=== PATIENT | male | born 1975 | race Caucasian/White ===

== ENCOUNTER → 2018-02-19 | Outpatient (CLI) | payer OTHER ==
[~2018-02-19] MED LIST: ALLP100T PO; BUPR150T6 PO; CITA40TA19 PO; HCT25T PO; INSU100C7 SQ; LIPA1CAP67 PO; POTA15TA PO; [UNRECOGNIZED DRUG - CODE] PO
== END ==
LOC: WOUNDCARE 08:12
PROVIDERS: ATTEND Nurse Practitioner
DX: E11.621 Type 2 diabetes mellitus with foot ulcer (principal); L97.521 Non-pressure chronic ulcer of other part of left foot limited to breakdown of skin; E11.40 Type 2 diabetes mellitus with diabetic neuropathy, unspecified
CPT/HCPCS: 97597

== ENCOUNTER → 2018-02-25 | Outpatient (CLI) | payer OTHER | LOC: WOUNDCARE 10:21 | PROVIDERS: ATTEND Nurse Practitioner | DX: E11.621 Type 2 diabetes mellitus with foot ulcer (principal); L97.521 Non-pressure chronic ulcer of other part of left foot limited to breakdown of skin; E11.40 Type 2 diabetes mellitus with diabetic neuropathy, unspecified | CPT/HCPCS: 97597 ==

== ENCOUNTER → 2018-03-09 | Outpatient (CLI) | payer OTHER | LOC: WOUNDCARE 08:10 | PROVIDERS: ATTEND Nurse Practitioner | DX: E11.621 Type 2 diabetes mellitus with foot ulcer (principal); E11.40 Type 2 diabetes mellitus with diabetic neuropathy, unspecified; L97.522 Non-pressure chronic ulcer of other part of left foot with fat layer exposed | CPT/HCPCS: 11042; 87070; 87075; 87205 ==

== ENCOUNTER → 2018-03-16 | Outpatient (CLI) | payer OTHER | LOC: WOUNDCARE 08:07 | PROVIDERS: ATTEND Surgery | DX: E11.621 Type 2 diabetes mellitus with foot ulcer (principal); E11.40 Type 2 diabetes mellitus with diabetic neuropathy, unspecified; L97.522 Non-pressure chronic ulcer of other part of left foot with fat layer exposed | CPT/HCPCS: 11042 ==

== ENCOUNTER → 2018-03-23 | Outpatient (CLI) | payer OTHER | LOC: WOUNDCARE 08:04 | PROVIDERS: ATTEND Nurse Practitioner | DX: E11.621 Type 2 diabetes mellitus with foot ulcer (principal); E11.40 Type 2 diabetes mellitus with diabetic neuropathy, unspecified; L97.522 Non-pressure chronic ulcer of other part of left foot with fat layer exposed | CPT/HCPCS: 11042 ==

== ENCOUNTER → 2018-03-30 | Outpatient (CLI) | payer OTHER ==
--- NOTE | 2018-03-30 11:53 | Diagnostic Imaging Report ---
Left foot at 9:17. Indication: Skin wound, osteomyelitis. 3 views were obtained. There are no prior studies available for comparison. By history, the patient has a soft tissue ulcer along the lateral aspect of the fifth digit. A marker was placed over the area of concern. The ulcer, itself, is not well visualized but there is erosion of the lateral half of the head of the proximal phalanx of the fifth digit. The lateral cortex of the middle phalanx and of the base of the distal phalanx is also indistinct. These findings do suggest osteomyelitis. If further imaging is desired, MRI would be recommended. No other fracture or acute bony abnormality is identified. There is a prominent calcaneal spur. The soft tissues are unremarkable. Impression: 1. There does appear to be erosion of the lateral aspect of the head of the proximal phalanx of the fifth digit as well as the lateral margins of the middle phalanx and the base of the distal phalanx. These findings do suggest bony destruction, most likely related to osteomyelitis. If further imaging is desired, MRI would be recommended. 2. There is no acute abnormality identified otherwise. Dictated by: Dictated on workstation # [id number]
== END ==
LOC: RAD 09:10
PROVIDERS: ATTEND Nurse Practitioner
DX: E11.621 Type 2 diabetes mellitus with foot ulcer (principal); L97.529 Non-pressure chronic ulcer of other part of left foot with unspecified severity; M86.9 Osteomyelitis, unspecified
CPT/HCPCS: 73630

== ENCOUNTER → 2018-03-30 | Outpatient (CLI) | payer OTHER | LOC: WOUNDCARE 08:13 | PROVIDERS: ATTEND Nurse Practitioner | DX: E11.621 Type 2 diabetes mellitus with foot ulcer (principal); E11.40 Type 2 diabetes mellitus with diabetic neuropathy, unspecified; L97.522 Non-pressure chronic ulcer of other part of left foot with fat layer exposed | CPT/HCPCS: 11042; 87070; 87075; 87077; 87205 ==

== ENCOUNTER → 2018-04-06 | Outpatient (CLI) | payer OTHER | LOC: WOUNDCARE 08:08 | PROVIDERS: ATTEND Nurse Practitioner | DX: E11.621 Type 2 diabetes mellitus with foot ulcer (principal); E11.40 Type 2 diabetes mellitus with diabetic neuropathy, unspecified; L97.522 Non-pressure chronic ulcer of other part of left foot with fat layer exposed; M86.072 Acute hematogenous osteomyelitis, left ankle and foot | CPT/HCPCS: 11042 ==

== ENCOUNTER → 2018-04-13 | Outpatient (CLI) | payer OTHER | LOC: WOUNDCARE 08:04 | PROVIDERS: ATTEND Nurse Practitioner | DX: E11.621 Type 2 diabetes mellitus with foot ulcer (principal); E11.40 Type 2 diabetes mellitus with diabetic neuropathy, unspecified; L97.522 Non-pressure chronic ulcer of other part of left foot with fat layer exposed; M86.072 Acute hematogenous osteomyelitis, left ankle and foot | CPT/HCPCS: 11042 ==

== ENCOUNTER → 2018-04-20 | Outpatient (CLI) | payer OTHER | LOC: WOUNDCARE 08:09 | PROVIDERS: ATTEND Nurse Practitioner | DX: E11.621 Type 2 diabetes mellitus with foot ulcer (principal); E11.40 Type 2 diabetes mellitus with diabetic neuropathy, unspecified; L97.522 Non-pressure chronic ulcer of other part of left foot with fat layer exposed; M86.072 Acute hematogenous osteomyelitis, left ankle and foot | CPT/HCPCS: 11042; 97597 ==

== ENCOUNTER → 2018-04-22 | Outpatient (CLI) | payer OTHER | LOC: WOUNDCARE 08:06 | PROVIDERS: ATTEND Nurse Practitioner | DX: E11.621 Type 2 diabetes mellitus with foot ulcer (principal); E11.40 Type 2 diabetes mellitus with diabetic neuropathy, unspecified; L97.522 Non-pressure chronic ulcer of other part of left foot with fat layer exposed; M86.072 Acute hematogenous osteomyelitis, left ankle and foot | CPT/HCPCS: 29445 ==

== ENCOUNTER 2018-04-27 09:07 | Inpatient (IN) | payer SELFPAY ==
[~2018-04-27] VITALS: Ht 177.8 cm; Wt 84.0 kg
[~2018-04-27 09:07] MED LIST changes: -ALPR0.5T7 PO; -ASPI-789 PO; -DOXY100C2 PO; -GABA-488 PO; -INSU100I14 SQ; -INSU100V6 SQ; -KRIL1CAP18 PO; -MELO15TA39 PO; -TRAM50TA2 PO; -TRAZ-190 PO
[2018-04-27 09:35] LABS: BASOPHILS % (AUTO) 0 % (0-10); EOSINOPHILS # (AUTO) 0.2 10^3/uL (0.0-0.3); EOSINOPHILS % (AUTO) 1 % (0-10); HEMATOCRIT 41 % (40-54); HEMOGLOBIN 14.7 G/DL (13.3-17.7); LYMPHOCYTES # (AUTO) 1.4 X 10^3 (1.0-4.0); LYMPHOCYTES % (AUTO) 12 % (12-44); MEAN CORPUSCULAR HEMOGLOBIN 32 PG (25-34); MEAN CORPUSCULAR HGB CONC 36 G/DL (32-36); MEAN CORPUSCULAR VOLUME 88 FL (80-99); MONOCYTES # (AUTO) 1.2 X 10^3 (0.0-1.0); MONOCYTES % (AUTO) 10 % (0-12); NEUTROPHILS # (AUTO) 9.1 X 10^3 (1.8-7.8); NEUTROPHILS % (AUTO) 76 % (42-75); PLATELET COUNT 238 10^3/uL (130-400); RED CELL DISTRIBUTION WIDTH 12.2 % (10.0-14.5); WHITE BLOOD COUNT 11.9 10^3/uL (4.3-11.0)
[2018-04-27 09:45] LABS: BUN/CREATININE RATIO 14; CALCIUM 9.1 MG/DL (8.5-10.1); CARBON DIOXIDE 22 MMOL/L (21-32); CHLORIDE 102 MMOL/L (98-107); CREATININE SERUM 0.91 MG/DL (0.60-1.30); GFR ESTIMATED > 60; GLUCOSE 384 MG/DL (70-105); POTASSIUM 4.2 MMOL/L (3.6-5.0); SODIUM 132 MMOL/L (135-145)
[2018-04-27 10:33] VITALS: BP 128/85
--- OUTSIDE RECORDS SUMMARY | 2018-04-27 10:47 | XMS REPORT | Clinical Summary ---
Author Author Admin, [facility] Organization [facility] [place] Address Unknown Phone Unavailable Allergies, Adverse Reactions, Alerts Allergy Name Reaction Description Start Date Severity Status Provider Allergies Unknown Conditions or Problems Problem Name Problem Code Onset Date Status Entry Date Provider Comment Standard Description Annotate URETERAL CALCULUS 592.1 Active Virginia Madrigal MD Calculus of ureter Medication List Medication Instructions Start Date Stop Date Generic Name NDC Status Provider Patient Instruction Drug Treatment Unknown - unknown Advance Directives Directive Description Start Date PERMISSION TO SHARE Procedures Code Procedure Name Date Entry Date Standard Description [id number] Postop F/U Visit 12:54:07 CDT
--- OUTSIDE RECORDS SUMMARY | 2018-04-27 10:47 | XMS REPORT ---
Author Author [facility] Address [address], [place] [id number] Phone [phone] Care Team Providers Care Blood Bank Manager Name Role Phone ALMA REEVES, HUBERT PP [phone] Summary purpose TRANSITION OF CARE AUTO GENERATION Chief Complaint and Reason for Visit Admit Diagnosis 1 STONE EXTRACTION Problem list No authorized problems tracked for continuity of care are available for this visit. Encounters The following conditions tracked for encounter diagnoses were recorded for this visit: Finding or Diagnosis Status Certainty Chronicity Onset *KIDNEY STONE Active Medications No medications recorded for this patient visit Allergies, adverse reactions, alerts Allergen Category Ingredient Status Reaction Severity Onset No known allergies No known allergies No known allergies Confirmed or Verified Immunizations No immunizations recorded for this patient visit Relevant diagnostic tests and/or laboratory data No authorized results are available for this patient visit History of procedures No procedures recorded for this patient visit. Functional status Functional Status Finding Observation Time Hearing Prob Loc none :47 Vision Problems no :47 Ambulation Asst Dev none :47 Range of Motion full :29 Muscle Strength RUE 5 ROM full resist :29 Muscle Strength RLE 5 ROM full resist :29 Muscle Strength LUE 5 ROM full resist :29 Muscle Strength LLE 5 ROM full resist :29 Transfers independent :29 Ambulation up ad tobias :29 Balance steady :29 Bathing Assistance none :47 Eating Assistance none :47 Dressing Assistance none :47 Toileting Assistance none :47 Transfer Assistance none :47 Decline Slf Care/Mob no :47 Phys Cond Stable yes :47 Nutrition normal : Diet regular : Oral Cavity moist and intact : Teeth intact : Dental Hygiene poor : Abdomen Appearance flat : Abdomen tender : Bowel Sounds present : NG Tube no : Feeding Tube none : Yanez no : Cont Bladder Irr no : Ostomy no : Stool normal : Urination normal : Quality sym/unlabored : Cough absent : Secretions no : Breath Sounds RUL clear :29 Breath Sounds RML clear : Breath Sounds RLL clear :29 Breath Sounds KYLE clear : Breath Sounds LLL clear :29 Airway natural : Chest Tube no : Oxygen no :50 Oxygen Mask Type nasal cannula : Oxygen Flow Rate 2 liters :29 C-PAP no :29 BI-PAP no : Temp >100.4 yes : Temp <96.8 no : Chills with rigors no : HR > 90bpm yes : Respirations > 20 no : Systolic <90 no : headache stiff neck no :29 Rapid Resp no :29 IV Site Location left forearm :45 IV Type peripheral :45 IV Site Information discontinued :45 IV Site Appearance WNL :45 IV Site Color clear :45 IV Site Patent yes :45 Dressing Type occlusive :45 Nursing Note dc instructions given. prescriptions for cipro and hydrocodone given. pt and verbalized understanding. denies questions or concerns, pt taken off unit via w/c. encouraged to call with any quesitons or concerns. :55 Cognitive Status Finding Observation Time Learning Ability comprehends well :55 Neurological no [id number] Psychological no :55 Physical no :55 Hearing no :55 Erp Implementation Consultant Needed no :55 Sign Language no :55 Emotional no :55 Vision no :55 Laguage no :55 Financial no :55 Vital signs Type Value Date Respiration Rate 18breaths per minute :50 Pulse 93beats per minute :50 Oxygen Saturation 96% :50 BP Systolic 122mmHg :50 BP Diastolic 76mmHg :50 Temperature 101.0F :22 Height 70inches :46 Weight 205LB [id number] Social history Type Value Smoking Status CURRENT EVERY DAY SMOKER Treatment Plan No treatment plan text is available for this visit. Hospital discharge instructions Discharge Date/Time 1854 Relationship spouse/signif other Dismissal Condition good Disposition on DC home Valuables no DC Inst/Educ Give yes Exit Care Educ Given yes Med/Side Effects Rev yes Immun Indicated no PNE Vac unknown Flu Vac 2012 Tetanus Vac up to date Diet Explained yes Follow up appt call for appointment
--- OUTSIDE RECORDS SUMMARY | 2018-04-27 10:47 | XMS REPORT | Continuity of Care Document ---
Demographics x Preferred Language Unknown Marital Status Unknown Worship Affiliation Unknown Race Unknown Ethnic Group Unknown Author Author [facility] Organization [facility] Address Unknown Phone Unavailable Allergies Active Description Code Type Severity Reaction Onset Reported/Identified Relationship to Patient Clinical Status Yes No known allergies [id number] NK N/A N/A Confirmed or Verified Yes NKANo Known Allergies NKA Miscellaneous Allergy Unknown N/A 05/19/2005 Medications There is no data. Problems Date Dx Coded Attending Type Code Diagnosis Diagnosed By 11/11/2010 250.00 DIABETES MELLITUS TYPE 2 11/11/2010 250.00 DIABETES MELLITUS TYPE 2 03/12/2012 311 DEPRESSIVE DISORDER NOT ELSEWHERE CLASSIFIED 06/01/2013 JOHANNE POWELL MD Ot 592.0 CALCULUS OF KIDNEY 02/18/2018 JOHANNE POWELL MD Ot 592.0 CALCULUS OF KIDNEY 02/18/2018 JOHANNE POWELL MD Ot V72.63 PRE-PROCEDURAL LABORATORY EXAMINATION 02/18/2018 JOHANNE POWELL MD Ot V72.84 EXAM PRE-OPERATIVE NOS 02/18/2018 JOHANNE POWELL MD Ot V74.8 SCREEN-BACTERIAL DIS NEC 02/18/2018 JOHANNE POWELL MD Ot 564.00 UNSPEC CONSTIPATION 02/18/2018 JOHANNE POWELL MD Ot 592.9 URINARY CALCULUS NOS 02/18/2018 JOHANNE POWELL MD Ot 592.0 CALCULUS OF KIDNEY 02/18/2018 JOHANNE POWELL MD Ot V72.63 PRE-PROCEDURAL LABORATORY EXAMINATION 02/18/2018 JOHANNE POWELL MD Ot V72.84 EXAM PRE-OPERATIVE NOS 02/18/2018 JOHANNE POWELL MD Ot V74.8 SCREEN-BACTERIAL DIS NEC 02/18/2018 JOHANNE POWELL MD Ot 564.00 UNSPEC CONSTIPATION 02/18/2018 JOHANNE POWELL MD Ot 592.9 URINARY CALCULUS NOS 02/24/2018 YUE HERNANDEZ CHEMISTRY LAB INSTRUCTOR Ot E11.40 TYPE 2 DIABETES MELLITUS WITH DIABETIC N 02/24/2018 YUE HERNANDEZ CHEMISTRY LAB INSTRUCTOR Ot E11.621 TYPE 2 DIABETES MELLITUS WITH FOOT ULCER 02/24/2018 YUE HERNANDEZ R CHEMISTRY LAB INSTRUCTOR Ot L97.521 NON-PRS CHRONIC ULCER OTH PRT L FOOT JACK 03/01/2018 YUE HERNANDEZ R CHEMISTRY LAB INSTRUCTOR Ot E11.40 TYPE 2 DIABETES MELLITUS WITH DIABETIC N 03/01/2018 YUE HERNANDEZ R CHEMISTRY LAB INSTRUCTOR Ot E11.621 TYPE 2 DIABETES MELLITUS WITH FOOT ULCER 03/01/2018 YUE HERNANDEZ R CHEMISTRY LAB INSTRUCTOR Ot L97.521 NON-PRS CHRONIC ULCER OTH PRT L FOOT JACK 03/01/2018 YUE HERNANDEZ R CHEMISTRY LAB INSTRUCTOR Ot E11.40 TYPE 2 DIABETES MELLITUS WITH DIABETIC N 03/01/2018 YUE HERNANDEZ CHEMISTRY LAB INSTRUCTOR Ot E11.621 TYPE 2 DIABETES MELLITUS WITH FOOT ULCER 03/01/2018 YUE HERNANDEZ CHEMISTRY LAB INSTRUCTOR Ot L97.521 NON-PRS CHRONIC ULCER OTH PRT L FOOT JACK 03/10/2018 YUE HERNANDEZ CHEMISTRY LAB INSTRUCTOR Ot E11.40 TYPE 2 DIABETES MELLITUS WITH DIABETIC N 03/10/2018 YUE HERNANDEZ CHEMISTRY LAB INSTRUCTOR Ot E11.621 TYPE 2 DIABETES MELLITUS WITH FOOT ULCER 03/10/2018 YUE HERNANDEZ CHEMISTRY LAB INSTRUCTOR Ot L97.522 NON-PRS CHRONIC ULCER OTH PRT LEFT FOOT 03/17/2018 JACOBO ROSADO MD Ot E11.40 TYPE 2 DIABETES MELLITUS WITH DIABETIC N 03/17/2018 JACOBO ROSADO MD Ot E11.621 TYPE 2 DIABETES MELLITUS WITH FOOT ULCER 03/17/2018 JACOBO ROSADO MD Ot L97.522 NON-PRS CHRONIC ULCER OTH PRT LEFT FOOT 03/22/2018 JACOBO ROSADO MD Ot E11.40 TYPE 2 DIABETES MELLITUS WITH DIABETIC N 03/22/2018 JACOBO ROSADO MD Ot E11.621 TYPE 2 DIABETES MELLITUS WITH FOOT ULCER 03/22/2018 JACOBO ROSADO MD Ot L97.522 NON-PRS CHRONIC ULCER OTH PRT LEFT FOOT 03/24/2018 YUE HERNANDEZ CHEMISTRY LAB INSTRUCTOR Ot E11.40 TYPE 2 DIABETES MELLITUS WITH DIABETIC N 03/24/2018 YUE HERNANDEZ R CHEMISTRY LAB INSTRUCTOR Ot E11.621 TYPE 2 DIABETES MELLITUS WITH FOOT ULCER 03/24/2018 YUE HERNANDEZ R CHEMISTRY LAB INSTRUCTOR Ot L97.522 NON-PRS CHRONIC ULCER OTH PRT LEFT FOOT 03/30/2018 YUE HERNANDEZ R CHEMISTRY LAB INSTRUCTOR Ot E11.621 TYPE 2 DIABETES MELLITUS WITH FOOT ULCER 03/30/2018 JORDAN HERNANDEZN R CHEMISTRY LAB INSTRUCTOR Ot L97.529 NON-PRESSURE CHRONIC ULCER OTH PRT LEFT 03/30/2018 MARY YUE R CHEMISTRY LAB INSTRUCTOR Ot M86.9 OSTEOMYELITIS, UNSPECIFIED 04/05/2018 MARY YUE R CHEMISTRY LAB INSTRUCTOR Ot E11.621 TYPE 2 DIABETES MELLITUS WITH FOOT ULCER 04/05/2018 MARY YUE R CHEMISTRY LAB INSTRUCTOR Ot L97.529 NON-PRESSURE CHRONIC ULCER OTH PRT LEFT 04/05/2018 MARY YUE R CHEMISTRY LAB INSTRUCTOR Ot M86.9 OSTEOMYELITIS, UNSPECIFIED 04/05/2018 MARY YUE R CHEMISTRY LAB INSTRUCTOR Ot E11.40 TYPE 2 DIABETES MELLITUS WITH DIABETIC N 04/05/2018 YUE HERNANDEZ R CHEMISTRY LAB INSTRUCTOR Ot E11.621 TYPE 2 DIABETES MELLITUS WITH FOOT ULCER 04/05/2018 MARY YUE R CHEMISTRY LAB INSTRUCTOR Ot L97.522 NON-PRS CHRONIC ULCER OTH PRT LEFT FOOT 04/07/2018 YUE HERNANDEZ R CHEMISTRY LAB INSTRUCTOR Ot E11.40 TYPE 2 DIABETES MELLITUS WITH DIABETIC N 04/07/2018 MARY YUE R CHEMISTRY LAB INSTRUCTOR Ot E11.621 TYPE 2 DIABETES MELLITUS WITH FOOT ULCER 04/07/2018 MARY YUE R CHEMISTRY LAB INSTRUCTOR Ot L97.522 NON-PRS CHRONIC ULCER OTH PRT LEFT FOOT 04/07/2018 MARY YUE R CHEMISTRY LAB INSTRUCTOR Ot M86.072 ACUTE HEMATOGENOUS OSTEOMYELITIS, LEFT A 04/12/2018 YUE HERNANDEZ R CHEMISTRY LAB INSTRUCTOR Ot E11.621 TYPE 2 DIABETES MELLITUS WITH FOOT ULCER 04/12/2018 MARY YUE R CHEMISTRY LAB INSTRUCTOR Ot L97.529 NON-PRESSURE CHRONIC ULCER OTH PRT LEFT 04/12/2018 MARY YUE R CHEMISTRY LAB INSTRUCTOR Ot M86.9 OSTEOMYELITIS, UNSPECIFIED 04/12/2018 MARY YUE R CHEMISTRY LAB INSTRUCTOR Ot E11.40 TYPE 2 DIABETES MELLITUS WITH DIABETIC N 04/12/2018 MARY YUE R CHEMISTRY LAB INSTRUCTOR Ot E11.621 TYPE 2 DIABETES MELLITUS WITH FOOT ULCER 04/12/2018 MARY YUE R CHEMISTRY LAB INSTRUCTOR Ot L97.522 NON-PRS CHRONIC ULCER OTH PRT LEFT FOOT 04/12/2018 MARY YUE R CHEMISTRY LAB INSTRUCTOR Ot M86.072 ACUTE HEMATOGENOUS OSTEOMYELITIS, LEFT A 04/12/2018 YUE HERNANDEZ R CHEMISTRY LAB INSTRUCTOR Ot E11.40 TYPE 2 DIABETES MELLITUS WITH DIABETIC N 04/12/2018 YUE HERNANDEZ R CHEMISTRY LAB INSTRUCTOR Ot E11.621 TYPE 2 DIABETES MELLITUS WITH FOOT ULCER 04/12/2018 YUE HERNANDEZ R CHEMISTRY LAB INSTRUCTOR Ot L97.522 NON-PRS CHRONIC ULCER OTH PRT LEFT FOOT 04/12/2018 YUE HERNANDEZ R CHEMISTRY LAB INSTRUCTOR Ot E11.40 TYPE 2 DIABETES MELLITUS WITH DIABETIC N 04/12/2018 YUE HERNANDEZ R CHEMISTRY LAB INSTRUCTOR Ot E11.621 TYPE 2 DIABETES MELLITUS WITH FOOT ULCER 04/12/2018 YUE HERNANDEZ R CHEMISTRY LAB INSTRUCTOR Ot L97.522 NON-PRS CHRONIC ULCER OTH PRT LEFT FOOT 04/12/2018 YUE HERNANDEZ CHEMISTRY LAB INSTRUCTOR Ot E11.40 TYPE 2 DIABETES MELLITUS WITH DIABETIC N 04/12/2018 YUE HERNANDEZ CHEMISTRY LAB INSTRUCTOR Ot E11.621 TYPE 2 DIABETES MELLITUS WITH FOOT ULCER 04/12/2018 YUE HERNANDEZ R CHEMISTRY LAB INSTRUCTOR Ot L97.522 NON-PRS CHRONIC ULCER OTH PRT LEFT FOOT 04/12/2018 JACOBO ROSADO MD Ot E11.40 TYPE 2 DIABETES MELLITUS WITH DIABETIC N 04/12/2018 JACOBO ROSADO MD Ot E11.621 TYPE 2 DIABETES MELLITUS WITH FOOT ULCER 04/12/2018 JACOBO ROSADO MD Ot L97.522 NON-PRS CHRONIC ULCER OTH PRT LEFT FOOT 04/12/2018 YUE HERNANDEZ CHEMISTRY LAB INSTRUCTOR Ot E11.40 TYPE 2 DIABETES MELLITUS WITH DIABETIC N 04/12/2018 YUE HERNANDEZ R CHEMISTRY LAB INSTRUCTOR Ot E11.621 TYPE 2 DIABETES MELLITUS WITH FOOT ULCER 04/12/2018 YUE HERNANDEZ R CHEMISTRY LAB INSTRUCTOR Ot L97.521 NON-PRS CHRONIC ULCER OTH PRT L FOOT JACK 04/12/2018 YUE HERNANDEZ R CHEMISTRY LAB INSTRUCTOR Ot E11.40 TYPE 2 DIABETES MELLITUS WITH DIABETIC N 04/12/2018 YUE HERNANDEZ R CHEMISTRY LAB INSTRUCTOR Ot E11.621 TYPE 2 DIABETES MELLITUS WITH FOOT ULCER 04/12/2018 YUE HERNANDEZ R CHEMISTRY LAB INSTRUCTOR Ot L97.521 NON-PRS CHRONIC ULCER OTH PRT L FOOT JACK 04/14/2018 YUE HERNANDEZ CHEMISTRY LAB INSTRUCTOR Ot E11.40 TYPE 2 DIABETES MELLITUS WITH DIABETIC N 04/14/2018 YUE HERNANDEZ CHEMISTRY LAB INSTRUCTOR Ot E11.621 TYPE 2 DIABETES MELLITUS WITH FOOT ULCER 04/14/2018 YUE HERNANDEZ R CHEMISTRY LAB INSTRUCTOR Ot L97.522 NON-PRS CHRONIC ULCER OTH PRT LEFT FOOT 04/14/2018 JORDAN HERNANDEZSrini Pulido CHEMISTRY LAB INSTRUCTOR Ot M86.072 ACUTE HEMATOGENOUS OSTEOMYELITIS, LEFT A 04/21/2018 JORDAN HERNANDEZSrini Pulido CHEMISTRY LAB INSTRUCTOR Ot E11.40 TYPE 2 DIABETES MELLITUS WITH DIABETIC N 04/21/2018 JORDAN HERNANDEZSrini Pulido CHEMISTRY LAB INSTRUCTOR Ot E11.621 TYPE 2 DIABETES MELLITUS WITH FOOT ULCER 04/21/2018 MARYJORDANSrini Pulido CHEMISTRY LAB INSTRUCTOR Ot L97.522 NON-PRS CHRONIC ULCER OTH PRT LEFT FOOT 04/21/2018 JORDAN HERNANDEZSrini Pulido CHEMISTRY LAB INSTRUCTOR Ot M86.072 ACUTE HEMATOGENOUS OSTEOMYELITIS, LEFT A Procedures Code Description [place] [address] A1C (IN-HOUSE) 03/12/2012 Results Test Result Range Bacteria identification in isolate by anaerobe culture - 03/09/18 08:37 Bacteria identification in isolate by anaerobe culture NOANA NRG Gram stain microscopy - 03/09/18 08:37 Gram stain microscopy No bacteria seen NRG Bacteria identification in wound by culture - 03/09/18 08:37 Bacteria identification in wound by culture [id number] NRG FREE TEXT EXTERNAL SUSCEPTIBILITY REPORTED 03-13-2018, 1205 NRG QUANTITY OF GROWTH Rare NRG FREE TEXT ENTRY 2 RESISTANT ORGANISM/CONTACT PRECAUTIONS NRG CALL POSITIVES (F1 HELP) MRSA CALLED TO KAMLA/SHANKAR AT 1514/KD NRG RML Sensitivity Panel - 03/09/18 08:37 Oxacillin susceptibility test by minimum inhibitory concentration R NRG Clindamycin susceptibility test by minimum inhibitory concentration <= NRG Erythromycin susceptibility test by minimum inhibitory concentration > NRG Trimethoprim/sulfamethoxazole susceptibility test by minimum inhibitoryconcentration S NRG Vancomycin susceptibility test by minimum inhibitory concentration 1 NRG Levofloxacin susceptibility test by minimum inhibitory concentration > NRG Rifampin susceptibility test by minimum inhibitory concentration <= NRG Cefazolin susceptibility test by minimum inhibitory concentration > NRG Linezolid susceptibility test by minimum inhibitory concentration 2 NRG Penicillin G susceptibility test by minimum inhibitory concentration > NRG Minocycline susc BRIT <= NRG RML Sensitivity Panel - 03/09/18 08:37 Gentamicin susceptibility test by minimum inhibitory concentration < = NRG Trimethoprim/sulfamethoxazole susceptibility test by minimum inhibitoryconcentration S NRG Levofloxacin susceptibility test by minimum inhibitory concentration > NRG Ampicillin susceptibility test by minimum inhibitory concentration < = NRG Cefazolin susceptibility test by minimum inhibitory concentration 4 NRG Ceftriaxone susceptibility test by minimum inhibitory concentration <= NRG Piperacillin/tazobactam susceptibility test by minimum inhibitory concentration S NRG Ciprofloxacin susceptibility test by minimum inhibitory concentration > NRG Amoxicillin and clavulanate potassium susc BRIT <= NRG Bacteria identification in isolate by anaerobe culture - 03/30/18 08:46 Bacteria identification in isolate by anaerobe culture NOANA NRG Gram stain microscopy - 03/30/18 08:46 Bacteria identification in wound by culture - 03/30/18 08:46 Bacteria identification in wound by culture SEE COMMEN NRG FREE TEXT EXTERNAL ID REPORTED 03/31/18 16:05 NRG QUANTITY OF GROWTH . NR FREE TEXT ENTRY 2 SUSCEPTIBILITY REPORTED 04-02-2018, 1105 NRG CALL POSITIVES (F1 HELP) MRSA CALLED TO HUBERT/SHANKAR AT 1157, 04-02-2018/KD NRG RML Sensitivity Panel - 03/30/18 08:46 Oxacillin susceptibility test by minimum inhibitory concentration R NRG Clindamycin susceptibility test by minimum inhibitory concentration <= NRG Erythromycin susceptibility test by minimum inhibitory concentration > NRG Trimethoprim/sulfamethoxazole susceptibility test by minimum inhibitoryconcentration S NRG Vancomycin susceptibility test by minimum inhibitory concentration 1 NRG Levofloxacin susceptibility test by minimum inhibitory concentration 4 NRG Rifampin susceptibility test by minimum inhibitory concentration <= NRG Cefazolin susceptibility test by minimum inhibitory concentration > NRG Linezolid susceptibility test by minimum inhibitory concentration 2 NRG Penicillin G susceptibility test by minimum inhibitory concentration > NRG Minocycline susc BRIT <= NRG Complete blood count (CBC) with automated white blood cell (WBC) differential - 04/27/18 09:23 Blood leukocytes automated count (number/volume) 11.9 10*3/uL 4.3-11.0 Blood erythrocytes automated count (number/volume) 4.67 10*6/uL 4.35-5.85 Venous blood hemoglobin measurement (mass/volume) 14.7 g/dL 13.3-17.7 Blood hematocrit (volume fraction) 41 % 40-54 Automated erythrocyte mean corpuscular volume 88 [foz_us] 80-99 Automated erythrocyte mean corpuscular hemoglobin (mass per erythrocyte) 32 pg 25-34 Automated erythrocyte mean corpuscular hemoglobin concentration measurement ( mass/volume) 36 g/dL 32-36 Automated erythrocyte distribution width ratio 12.2 % 10.0-14.5 Automated blood platelet count (count/volume) 238 10*3/uL 130-400 Automated blood platelet mean volume measurement 10.0 [foz_us] 7.4-10.4 Automated blood neutrophils/100 leukocytes 76 % 42-75 Automated blood lymphocytes/100 leukocytes 12 % 12-44 Blood monocytes/100 leukocytes 10 % 0-12 Automated blood eosinophils/100 leukocytes 1 % 0-10 Automated blood basophils/100 leukocytes 0 % 0-10 Blood neutrophils automated count (number/volume) 9.1 10*3 1.8-7.8 Blood lymphocytes automated count (number/volume) 1.4 10*3 1.0-4.0 Blood monocytes automated count (number/volume) 1.2 10*3 0.0-1.0 Automated eosinophil count 0.2 10*3/uL 0.0-0.3 Automated blood basophil count (count/volume) 0.0 10*3/uL 0.0-0.1 Whole blood basic metabolic panel - 04/27/18 09:23 Serum or plasma sodium measurement (moles/volume) 132 mmol/L 135-145 Serum or plasma potassium measurement (moles/volume) 4.2 mmol/L 3.6-5.0 Serum or plasma chloride measurement (moles/volume) 102 mmol/L 98-107 Carbon dioxide 22 mmol/L 21-32 Serum or plasma anion gap determination (moles/volume) 8 mmol/L 5-14 Serum or plasma urea nitrogen measurement (mass/volume) 13 mg/dL 7-18 Serum or plasma creatinine measurement (mass/volume) 0.91 mg/dL 0.60-1.30 Serum or plasma urea nitrogen/creatinine mass ratio 14 NRG Serum or plasma creatinine measurement with calculation of estimated glomerular filtration rate > NRG Serum or plasma glucose measurement (mass/volume) 384 mg/dL 70-105 Serum or plasma calcium measurement (mass/volume) 9.1 mg/dL 8.5-10.1 Encounters ACCT No. Visit Date/Time Discharge Status Pt. Type Provider Facility Loc./Unit Complaint [id number] 07/06/2014 11:20:00 07/06/2014 16:05:00 DIS Inpatient CHANDU ROSA [facility] OPS [id number] 06/26/2014 12:23:00 06/26/2014 18:55:00 DIS Outpatient CHANDU ROSA [facility] OPS [id number] 03/12/2012 15:09:00 03/12/2012 23:59:59 CLS Outpatient [id number] 03/03/2011 09:13:00 03/03/2011 23:59:59 CLS Outpatient [id number] 09/11/2015 11:47:59 ACT Unknown [id number] 2018 08:06:00 2018 23:59:59 CLS Outpatient MARY YUE R CHEMISTRY LAB INSTRUCTOR [facility] [id number] 04/20/2018 08:09:00 04/20/2018 23:59:59 CLS Outpatient MARY YUE R CHEMISTRY LAB INSTRUCTOR [facility] [id number] 04/13/2018 08:04:00 04/13/2018 23:59:59 CLS Outpatient MARY YUE R CHEMISTRY LAB INSTRUCTOR [facility] [id number] 04/06/2018 08:08:00 04/06/2018 23:59:59 CLS Outpatient MARY YUE R CHEMISTRY LAB INSTRUCTOR [facility] [id number] 03/30/2018 09:10:00 03/30/2018 23:59:59 CLS Outpatient MARY YUE R CHEMISTRY LAB INSTRUCTOR [facility] RAD TYPE 2 DIABETES MELLITUS WITH FOOT ULCER [id number] 03/30/2018 08:13:00 03/30/2018 23:59:59 CLS Outpatient MARY YUE R CHEMISTRY LAB INSTRUCTOR [facility] [id number] 03/23/2018 08:04:00 03/23/2018 23:59:59 CLS Outpatient MARY YUE R CHEMISTRY LAB INSTRUCTOR [facility] [id number] 03/16/2018 08:07:00 03/16/2018 23:59:59 CLS Outpatient JACOBO ROSADO MD [facility] [id number] 03/09/2018 08:10:00 03/09/2018 23:59:59 CLS Outpatient MARY YUE R CHEMISTRY LAB INSTRUCTOR [facility] [id number] 02/25/2018 10:21:00 02/25/2018 23:59:59 CLS Outpatient YUE HERNANDEZ CHEMISTRY LAB INSTRUCTOR [facility] [id number] 02/19/2018 08:12:00 02/19/2018 23:59:59 CLS Outpatient YUE HERNANDEZ CHEMISTRY LAB INSTRUCTOR [facility] [id number] 06/01/2013 09:06:00 06/01/2013 14:20:00 DIS [facility] [id number] 05/24/2013 14:04:00 05/24/2013 23:59:59 CLS Outpatient JOHANNE PWOELL MD [facility] PREOP RODOLFO RENAL STONES [id number] 05/24/2013 12:29:00 05/24/2013 23:59:59 CLS Outpatient JOHANNE POWELL MD [facility] RAD STONES [id number] 04/27/2018 09:36:00 Document Registration
--- OUTSIDE RECORDS SUMMARY | 2018-04-27 10:47 | XMS REPORT ---
Author Author [facility] Medical Staff Organization [facility] Address [address] [place], [place] [address] Phone [phone] Care Team Providers Care Bicycle Fitter Name Role Phone ALMA REEVES, HUBERT PP [phone] Summary purpose TRANSITION OF CARE AUTO GENERATION [...] visit Relevant diagnostic tests and/or laboratory data RESULTS Radiology Results [id number]:00 RETROGRADE PYELOGRAM PACs Image DATE OF EXAM: Jun 26 2014 RAD 1274-RETROGRADE PYELOGRAM : RADIOLOGY REPORT DATE OF SERVICE:06/26/14 HISTORY:This was done to identify ureteral calculi. RETROGRADE PYELOGRAM 1710 HOURS Preliminary film shows the kidney and majority of right ureter except the distal probable 6 to 8 cm of the ureter due to field of view limitations. Next image shows contrast filling of the right ureter. There is a small area of questioned narrowing versus peristaltic wave in the ureter 4 to 5 cm down from the ureteropelvic junction. No filling defect is seen. The collecting system appears normal. The next image shows a wire up the right ureter along with subsequent image. The last image shows placement of ureteral stent on the right. Apparently no calculus was removed. IMPRESSION:As above. DO LORRI Ambrocio/pooja 06/26/2014 17:14:00 / 06/26/2014 23:27:13 cc:Dr. Todd Madrigal This document has been electronically Signed by: On: DATE OF EXAM: Jun 26 2014 RAD 1274-RETROGRADE PYELOGRAM : RADIOLOGY REPORT DATE OF SERVICE:06/26/14 HISTORY:This was done to identify ureteral calculi. RETROGRADE PYELOGRAM 1710 HOURS Preliminary film shows the kidney and majority of right ureter except the distal probable 6 to 8 cm of the ureter due to field of view limitations. Next image shows contrast filling of the right ureter. There is a small area of questioned narrowing versus peristaltic wave in the ureter 4 to 5 cm down from the ureteropelvic junction. No filling defect is seen. The collecting system appears normal. The next image shows a wire up the right ureter along with subsequent image. The last image shows placement of ureteral stent on the right. Apparently no calculus was removed. IMPRESSION:As above. Sommer Russell DO MW/pb 06/26/2014 17:14:00 / 06/26/2014 23:27:13 cc:Dr. Todd Madrigal This document has been electronically Signed by: SOMMER RUSSELL DO On: Jun 28 2014 11:50A STONE EXTRACTION Result Amended on 2014-06-28 at 11:50:27. Previous status was MI. STONE EXTRACTION History of procedures No procedures recorded for this patient visit. Functional status Functional Status Finding Observation Time Hearing Prob Loc none :47 Vision Problems no 48-54-182972:47 Ambulation Asst Dev none :47 Range of Motion full : Muscle Strength RUE 5 ROM full resist :29 Muscle Strength RLE 5 ROM full resist :29 Muscle Strength LUE 5 ROM full resist :29 Muscle Strength LLE 5 ROM full resist :29 Transfers independent 57-42-137446:29 Ambulation up ad tobias 59-94-826756:29 Balance steady :29 Bathing Assistance none 85-81-691535:47 Eating Assistance none :47 Dressing Assistance none :47 Toileting Assistance none :47 Transfer Assistance none :47 Decline Slf Care/Mob no :47 Phys Cond Stable yes :47 Nutrition normal 36-81-438667:29 Diet regular 26-57-488331:29 Oral Cavity moist and intact : Teeth intact : Dental Hygiene poor : Abdomen Appearance flat : Abdomen tender : Bowel Sounds present : NG Tube no : Feeding Tube none : Yanez no : Cont Bladder Irr no : Ostomy no : Stool normal : Urination normal : Quality sym/unlabored : Cough absent : Secretions no : Breath Sounds RUL clear : Breath Sounds RML clear : Breath Sounds RLL clear : Breath Sounds KYLE clear : Breath Sounds LLL clear :29 Airway natural : Chest Tube no : Oxygen no :50 Oxygen Mask Type nasal cannula : Oxygen Flow Rate 2 liters : C-PAP no :29 BI-PAP no : Temp [...] Learning Ability comprehends well :55 Neurological no :55 Psychological no 96-98-565928:55 Physical no :55 Hearing no :55 Waste Handling Technician Needed no :55 Sign Language no :55 Emotional no :55 Vision no :55 Laguage no :55 Financial no :55 Vital signs Type Value Date Respiration Rate 18breaths per minute :50 Pulse 93beats per minute :50 Oxygen Saturation 96% :50 BP Systolic 122mmHg :50 BP Diastolic 76mmHg :50 Temperature 101.0F 71-51-979692:22 Height 70inches :46 Weight 205LB 72-22-003404:46 Social history Type Value Smoking Status CURRENT EVERY DAY SMOKER Treatment Plan No treatment plan text is available for this visit. Hospital discharge instructions Discharge Date/Time 1854 Relationship spouse/signif other Dismissal Condition good Disposition on DC home Valuables no DC Inst/Educ Give yes Exit Care Educ Given yes Med/Side Effects Rev yes Immun Indicated no PNE Vac unknown Flu Vac 2013 Tetanus Vac up to date Diet Explained yes Follow up appt call for appointment
--- OUTSIDE RECORDS SUMMARY | 2018-04-27 10:47 | XMS REPORT ---
Author Author [facility] Address [address], [place] [address] Phone [phone] Care Team Providers Care Pack Operator Name Role Phone ALMA REEVES, HUBERT PP [phone] HUBERT MARQUEZ MD, PP [phone] Summary purpose TRANSITION OF CARE AUTO GENERATION Chief Complaint and Reason for Visit Admit Diagnosis 1 RIGHT ESWL Problem list No authorized problems tracked for [...] tests and/or laboratory data RESULTS Radiology Results 29-05-012284:37:00 ABDOMEN 1 VIEW PACs Image DATE OF EXAM: 2014 RAD 0011-ABDOMEN 1 VIEW : RADIOLOGY REPORT DATE OF SERVICE: 07/06/14 HISTORY: Preop lithotripsy SUPINE ABDOMEN 1205 HOURS Right-sided double pigtail stent is in place. No definite opaque urinary calculi can be seen. Surgical clips are noted in the right lower quadrant. The bowel gas pattern is normal. IMPRESSION: Right-sided stent in place. No definite opaque urinary calculi. MD QAMAR Huerta/tn07/06/2014 13:18:00 / 07/06/2014 13:24:50 cc:Dr. Todd Madrigal This document has been electronically Signed by: On: DATE OF EXAM: 2014 RAD 0011-ABDOMEN 1 VIEW : RADIOLOGY REPORT DATE OF SERVICE: 07/06/14 HISTORY: Preop lithotripsy SUPINE ABDOMEN 1205 HOURS Right-sided double pigtail stent is in place. No definite opaque urinary calculi can be seen. Surgical clips are noted in the right lower quadrant. The bowel gas pattern is normal. IMPRESSION: Right-sided stent in place. No definite opaque urinary calculi. MD QAMAR Huerta/tn07/06/2014 13:18:00 / 07/06/2014 13:24:50 cc:Dr. Todd Madrigal This document has been electronically Signed by: JACOBO EVANS On: 20142:37P RIGHT ESWL Result Amended on 2014-07-06 at 14:37:52. Previous status was NM. RIGHT ESWL History of procedures No procedures recorded for this patient visit. Functional status Functional Status Finding Observation Time Hearing Prob Loc none :45 Vision Problems yes :45 Vision Correct Dev glasses :45 Ambulation Asst Dev none :45 Range of Motion full :00 Muscle Strength RUE 5 ROM full resist :00 Muscle Strength RLE 5 ROM full resist :00 Muscle Strength LUE 5 ROM full resist :00 Muscle Strength LLE 5 ROM full resist 04-06-619166:00 Transfers independent :00 Ambulation in room :00 Balance steady :00 Bathing Assistance none 29-66-882832:45 Eating Assistance none :45 Dressing Assistance none 84-59-640848:45 Toileting Assistance none 33-08-888176:45 Transfer Assistance none 26-37-246319:45 Decline Slf Care/Mob no :45 Phys Cond Stable yes 85-46-162827:45 Nutrition normal 07-60-375679:00 Diet regular :00 Oral Cavity moist and intact :00 Teeth intact 07-08-975964:00 Dental Hygiene poor :00 Abdomen Appearance flat :00 Abdomen soft 00-69-918979:00 Bowel Sounds present 10-25-150693:00 NG Tube no 17-64-527947:00 Feeding Tube none 31-05-639026:00 Yanez no 52-11-977670:00 Cont Bladder Irr no :00 Ostomy no 82-13-064905:00 Stool normal :00 Urination normal 28-46-545878:00 Quality sym/unlabored 77-07-283424: Cough absent : Secretions no 12-44-135414:00 Breath Sounds RUL clear 19-85-570141:00 Breath Sounds RML clear 32-48-483993:00 Breath Sounds RLL clear :00 Breath Sounds KYLE clear : Breath Sounds LLL clear 26-93-776409:00 Airway natural : Chest Tube no 38-27-703623: Oxygen no :55 Oxygen Flow Rate RA :55 C-PAP no 31-05-296130: BI-PAP no : Temp >100.4 no 29-33-925920:00 Temp <96.8 no 41-37-963617:00 Chills with rigors no 53-65-494489: HR > 90bpm no 05-90-842193:00 Respirations > 20 no 62-61-048493:00 Systolic <90 no 94-02-783996:00 headache stiff neck no 63-96-463386:00 Rapid Resp no 67-25-535535:00 IV Site Location LT fa 07-31-514828:05 IV Type peripheral 18-06-152375:05 IV Site Information discontinued 21-50-341572:05 IV Site Start Attmpt 1 times 07-69-948367:00 IV Site Cash 20 92-33-162002:00 IV Site Appearance WNL 43-65-430363:00 IV Site Color clear 42-44-195803:00 IV Site Patent yes 50-61-436616:00 Dressing Type occlusive :00 Nursing Note DC instructions discussed with pt and -both verbalized understanding. Pt escorted to private vehicle in good condition c at side. 40-86-548016:05 Cognitive Status Finding Observation Time Oriented To Date 5 Yes 28-35-320093:[address] 5 Yes 80-42-639389:45 Name 3 Objects 3 Yes :45 Name Object in Rm 2 Yes :45 Recall 3 Objects 3 Yes :45 Repeats a Phrase 1 Yes :45 Follows Verbal Direc 3 Yes :45 Follows Written Dire 1 Yes :45 Write a Sentance 1 Yes :45 Draw an Object 1 Yes :45 Mini Mental Total 25 points :45 Learning Ability comprehends well :47 Neurological no :47 Psychological no :47 Physical no :47 Hearing no :47 Polishing Pad Mounter Needed no :47 Sign Language no :47 Emotional no :47 Vision no :47 Laguage no :47 Financial no :47 Vital signs Type Value Date Respiration Rate 18breaths per minute :55 Pulse 67beats per minute :55 Oxygen Saturation 98% :55 BP Systolic 109mmHg :55 BP Diastolic 73mmHg :55 Temperature 98.0F :55 Height 70inches 02-92-460163:21 Weight 185LB 32-20-708831:21 Social history Type Value Smoking Status CURRENT EVERY DAY SMOKER Treatment Plan No treatment plan text is available for this visit. Hospital discharge instructions Discharge Date/Time 07/05/14 16:05 Accompanied By Dismissal Condition good Disposition on DC home Valuables no DC Inst/Educ Give yes Exit Care Educ Given yes Med/Side Effects Rev yes PNE Vac 2014 Flu Vac 2014 Tetanus Vac unknown Diet Explained yes Follow up appt already scheduled Comment: 07/21/14 at 2:00
--- OUTSIDE RECORDS SUMMARY | 2018-04-27 10:47 | XMS REPORT | Clinical Summary ---
Author Author Admin, Hank Organization [facility] Address Unknown Phone Unavailable Allergies, Adverse Reactions, Alerts Allergy Name Reaction Description Start Date Severity Status Provider No Known Allergies Sejal Contreras LPN Conditions or Problems Problem Name Problem Code Onset Date Status Entry Date Provider Comment Standard Description Annotate URETERAL CALCULUS 592.1 Active Virginia Madrigal MD Calculus of ureter Family History of Alcoholism V61.41 Active Virginia Madrigal MD Alcoholism in family FH Diabetes V18.0 Active Virginia Madrigal MD Family history of diabetes mellitus Medication List Medication Instructions Start Date Stop Date Generic Name NDC Status Provider Patient Instruction NOVOLOG 100 UNIT/ML SC SOLN sliding scale 3-4 times daily INSULIN ASPART 16532330599 Active Virginia Madrigal MD Active LANTUS SOLOSTAR 100 UNIT/ML SOLN 50units SQ once daily INSULIN GLARGINE 82736908602 Active Virginia Madrigal MD Active NAPROXEN 500 MG TAB 2 tabs daily NAPROXEN 07898528824 Active Virginia Madrigal MD Active BUPROPION HCL (SMOKING DETER) 150 MG [id number] 1 a day BUPROPION HCL ( SMOKING DETER) 35033620091 Active Virginia Madrigal MD Active LISINOPRIL 10 MG TABS 1 tablet by mouth daily LISINOPRIL 48612725871 Active Virginia Madrigal MD Active CITALOPRAM HYDROBROMIDE 20 MG TABS 2 tablets by mouth daily CITALOPRAM HYDROBROMIDE 26321844606 Active Virginia Madrigal MD Active Advance Directives Directive Description Start Date PERMISSION TO SHARE Procedures Code Procedure Name Date Entry Date Standard Description [id number]-40810 Postop F/U Visit 12:54:07 CDT
[2018-04-27] MEDS ORDERED: MELO15TA39 PO (11:33)
[2018-04-27] MEDS ORDERED: ALPR0.5T7 PO (11:33)
[2018-04-27] MEDS ORDERED: DOXY100C2 PO (11:33)
[2018-04-27] MEDS ORDERED: TRAZ-190 PO (11:33)
[2018-04-27] MEDS ORDERED: TRAM50TA2 PO (11:33)
[2018-04-27] MEDS ORDERED: PIPERACILLIN/TAZO 4.5 GM/NS 100 ML IV NR ×2 (11:46)
[2018-04-27] MEDS ORDERED: GABA-488 PO ×2 (11:47)
[2018-04-27] MEDS ORDERED: INSU100I14 SQ (11:47)
[2018-04-27] MEDS ORDERED: ASPI-789 PO (11:47)
[2018-04-27] MEDS ORDERED: KRIL1CAP18 PO (11:47)
[2018-04-27] MEDS ORDERED: INSU100V6 SQ (11:47)
[2018-04-27] MEDS ORDERED: CITA40TA19 PO (11:48)
--- NOTE | 2018-04-27 11:53 | NUR ---
SPOKE WITH THE PATIENT ABOUT HIS MEDICATIONS. HE STATES HE GAVE WOUND CARE A LIST A FEW WEEKS AGO HOWEVER HIS MED REC HAS NOT BEEN UPDATED IN SOME TIME. I WAS UNABLE TO FIND A LIST IN HIS RECORDS FOR WOUND CARE. WE WENT OVER THE EXT MED HX AND HE LISTED ALL HIS MEDS TO THE BEST OF HIS ABILITY. IN ADDITION TO THE 5 PRESCRIPTIONS THE EXT MED HX SHOWS [facility] FILLED THIS MONTH THEY ALSO FILLED CITALOPRAM 40MG DAILY #30 03-20-18, PATIENT STATES HE TAKES THIS AT BEDTIME. THE PHARMACY AT [facility] IN [place] FILLED: 04-26-18 GABAPENTIN 300MG TID (HE STATES HE TAKES 1 AM NEEDED AND 2 HS SCHEDULED) IN ADDITION HE REPORTS HE USES 65 UNITS OF LANTUS VIALS AT BEDTIME, HE STATES HE ALSO HAS NOVOLOG PENS THAT HE USES 10-15 UNITS WITH MEALS HOWEVER HE ADMITS HE IS NOT COMPLIANT WITH TAKING THE MEAL TIME INSULIN. HE STATES OFTEN TIMES HE IS AWAY FROM THE HOUSE AND HIS MEDICATION THROUGHOUT THE DAY SO HE ONLY TAKES IT WHEN HE THINKS ABOUT IT OR IT IS ACCESSIBLE TO HIM DURING MEAL TIME. HE ALSO STATES HE DOES NOT EAT ON A REGULAR SCHEDULE. HE HAD BEEN FILLING AT THE [facility] BEFORE THEY CLOSED AND HIS PRESCRIPTIONS HAVE BEEN FILLED A FEW DIFFERENT PLACES UNTIL THEY FIGURED OUT WHERE THEY WANTED TO GET THEM JAIL. HE REPORTS TAKING KRILL OIL ONCE DAILY AND EXCEDRIN MIGRAINE PRN OTC.
--- NOTE | 2018-04-27 11:57 | History & Physical-Hospitalist ---
History of Present Illness HPI/Chief Complaint Pt is a 43yoCM with a PMH of IDDMII and tobacco abuse who presented as a direct admission from the wound care clinic for worsening left toe wound. He has been following with Jose Bautista APRN at wound care and has been on doxycycline for roughly 1 month and doing well. He had two ulcers on the lateral aspect of his left 5th digit that were responding well to antibiotics and casting up until last week. Cast was removed on 04/22 and wound was much improved per Jose and patient. Then over the next few days he developed malaise and thought he had a fever. On presentation to wound care today and removal of cast wound had worsened and he had streaking erythema on his foot. He was sent for labs and found to have an elevated white count. He was then admitted for failing outpatient management of osteomyelitis. He is an insulin dependent diabetic and reports his blood sugar this morning was around 170 but his significant other at bedside states his blood sugars are very poorly controlled. Patient reports MIREILLE done by Jose at wound clinic was normal during his last visit. Source: patient, family Date Seen 04/27/18 Time Seen by a Provider: 11:55 Attending Physician Nataly Helton MD PCP SelfAlfredo MD Referring Physician Date of Admission Apr 27, 2018 at 10:30 Home Medications & Allergies Home Medications Reviewed patient Home Medication Reconciliation performed by pharmacy medication reconciliations anesthesia technician and/or nursing. Patients Allergies have been reviewed. Allergies Allergies Coded Allergies No Known Allergies (Verified Allergy, Unknown, 05/19/05) Past Ntxxtnt-Wzjfph-Blowae Hx Past Med/Social Hx: Reviewed Nursing Past Med/Soc Hx Patient Social History Alcohol Use: Occasionally Uses Number of Drinks Today: 0 Alcohol Beverage of Choice: Beer Recreational Drug Use: No Smoking Status: Current Everyday Smoker (1.5-2ppd) Physical Abuse Screen: No Sexual Abuse: No Recent Foreign Travel: No Contact w/other who traveled: No Recent Hopitalizations: No Recent Infectious Disease Expo: No Immunizations Up To Date Pediatric: Yes Date of Pneumonia Vaccine: Mar 01, 2013 Date of Influenza Vaccine: Mar 01, 2013 Seasonal Allergies Seasonal Allergies: No Past Medical History Surgeries: Abdominal (hernia), Adenoidectomy, Appendectomy, Tonsillectomy Currently Using CPAP: No Currently Using BIPAP: No Genitourinary: Kidney Stones Gastrointestinal: Pancreatitis Musculoskeletal: Arthritis Endocrine: Diabetes, Insulin dep Loss of Vision: Denies Hearing Impairment: Hard of Hearing Psychosocial: Sleep Difficulties, Anxiety, Depression History of Blood Disorders: No Family History Reviewed Nursing Family Hx Colon cancer MATERNAL GRANDFATHER Completed stroke 19 FATHER Deafness or hearing loss 19 FATHER Diabetes mellitus 19 MOTHER (MOM, BROTHER, AUNTS) Gastroenteritis 19 MOTHER Hypercholesterolemia 19 FATHER Hypertension 19 FATHER 19 MOTHER Neoplasm PATERNAL GRANDFATHER (STOMACH) MATERNAL GRANDFATHER (COLON) Psychosocial problem 19 MOTHER Seizure disorder 19 FATHER Review of Systems Constitutional: fever, malaise Gastrointestinal: diarrhea Skin: see HPI Physical Exam Physical Exam Vital Signs Vital Signs - First Documented 04/27/18 10:33 Temp 100.2 Pulse 104 Resp 16 B/P (MAP) 128/85 Pulse Ox 96 O2 Delivery Room Air Capillary Refill : Height, Weight, BMI Height: 5'10.00" Weight: 185lbs. 2.0oz. 83.955053dg; 26.6 BMI Method: General Appearance: No Apparent Distress, WD/WN, Chronically ill HEENT: Moist Mucous Membranes; No Scleral Icterus (L), No Scleral Icterus (R) Neck: Normal Inspection, Supple; No Thyromegaly Respiratory: Lungs Clear, No Accessory Muscle Use, No Respiratory Distress Cardiovascular: Regular Rate, Rhythm, No JVD, No Murmur, Normal Peripheral Pulses Gastrointestinal: Normal Bowel Sounds, Non Tender, Soft Extremity: No Calf Tenderness, No Pedal Edema, Other (left foot in traci bandage , requested not to unwrap and was just dressed by wound care, erythema note around lateral aspect of left foot) Neurologic/Psychiatric: Alert, Oriented x3, Normal Mood/Affect Skin: Normal Color, Warm/Dry Results Results/Procedures Labs Laboratory Tests 04/27/18 09:23 Patient resulted labs reviewed. Assessment/Plan Admission Diagnosis Osteomyelitis Admission Status: Inpatient Order (span 2 midnights) Reason for Inpatient Admission: failed outpatient antibiotics Diagnosis/Problems Diagnosis/Problems (1) Sepsis Status: Acute Assessment & Plan: Febrile at wound care clinic with tachycardia and leukocytosis Lactic normal No hypotension Blood cultures ordered Reviewed previous wound culture from 03/30 which grew MRSA Start on Vanc/Zosyn Qualifiers: Sepsis type: sepsis due to unspecified organism Qualified Codes: A41.9 - Sepsis, unspecified organism (2) Osteomyelitis due to type 2 diabetes mellitus Status: Acute Assessment & Plan: Failed outpatient management on Doxycycline Start on Vanc/Zosyn Wound care consulted, appreciate recs (3) Insulin dependent diabetes mellitus Assessment & Plan: Poorly controlled per report from SO Resume home insulin and titrate as needed A1c ordered Likely needs patient education as well on diabetes (4) Tobacco abuse Assessment & Plan: Smokes 1.5 to 2ppd Recommended smoking cessation Consult patient education Clinical Quality Measures DVT/VTE Risk/Contraindication: Risk Factor Score Per Nursin RFS Level Per Nursing on Admit: 3=High NATALY HELTON MD Apr 27, 2018 11:57
[2018-04-27] MEDS ORDERED: ONDANSETRON 4 MG/2 ML (SDV) Z0FRAN IV PRN (12:00)
[2018-04-27 12:20] VITALS: BP 130/78
[2018-04-27] MEDS ORDERED: FLU QUADRIvalent (5+ YOA) 2018-2019 (AFLURIA) 0.5 ML IM ONE (12:30)
[2018-04-27] MEDS ORDERED: VANCOMYCIN INJECTION 1,750 MG in NS IV 500 ML 500 ML IV SCH (13:00)
[2018-04-27] MEDS ORDERED: VANCOMYCIN 1 GM/NS 250 ML IVPB IV NR ×2 (13:00)
--- NOTE | 2018-04-27 14:10 | NUR ---
CALLED DR ZIEGLER TO ASK ABOUT IMODIUM AND RESTARTING INSULIN FOR TH PATIENT
[2018-04-27] MEDS ORDERED: GABAPENTIN 300 MG (NEURONTIN) CAP PO PRN (14:30)
[2018-04-27] MEDS ORDERED: NON-FORMULARY MEDICATION 1 EA EA (Insulin Aspart (Novolog Flexpen) 10 UNITS) SQ PRN (14:30)
[2018-04-27] MEDS ORDERED: VANCOMYCIN 750 MG/NS 250 ML IVPB IV NR ×2 (14:45)
[2018-04-27] MEDS ORDERED: LOPERAMIDE 2 MG (IMODIUM) CAP PO PRN (14:45)
[2018-04-27 16:04] VITALS: BP 124/79
[2018-04-27] MEDS: ACETAMINOPHEN 325 MG TABLET PO PRN ×2 (16:30→20:47)
[2018-04-27] MEDS: LACTOBACILLUS ACIDOPHILUS (PROBIOTIC) CAPSULE PO SCH (16:30)
[2018-04-27] MEDS: inSUlin ASPART (NovoLOG) 1 UNIT/0.01 ML (CHARGE PER UNIT) SC PRN (16:32)
[2018-04-27] MEDS: PIPERACILLIN/TAZOBACTAM (BULK) 4.5 GM in NS (IVPB) 100 ML IV SCH (17:33)
--- NOTE | 2018-04-27 17:49 | NUR ---
DRESSING ON FOOT UNWRAPPED FOR X RAY. WOUND CULTURE TAKEN AND SENT TO LAB. WOUND CLEANSED WITH NORMAL SALINE AND REWRAPPED. PATIENT TOLERATED PROCEDURE WELL.
--- NOTE | 2018-04-27 17:50 | Diagnostic Imaging Report ---
INDICATION: Open ulcer. Concern for osteomyelitis. COMPARISON: 03/30/2018. FINDINGS: Three radiographic views of the toes of the left foot were obtained. Again identified is soft tissue ulcer involving the lateral margins of the fifth toe. Also again identified is osteolytic appearance to the lateral distal margins of the fifth proximal phalanx. This is stable in appearance compared to prior exam. Note is also made of osteolytic appearance to the lateral margins of the middle and distal fifth phalanges as well. No new acute fracture or dislocation is seen. No unexpected radiopaque foreign bodies are identified. IMPRESSION: 1. Osteolytic appearance to the lateral margins of the proximal, middle, and distal fifth phalanges. In the correct clinical setting, this can be seen as a sequela of osteomyelitis. Clinical correlation recommended. Dictated by: Dictated on workstation # [id number]
[2018-04-27 20:18] VITALS: BP 128/78
[2018-04-27] MEDS ORDERED: traZODone 100 MG (DESYREL) TAB ONE (20:32)
[2018-04-27] MEDS: traZODone 100 MG (DESYREL) TAB PO SCH (20:40)
[2018-04-27] MEDS: GABAPENTIN 300 MG (NEURONTIN) CAP PO SCH (20:40)
[2018-04-27] MEDS: MELOXICAM 7.5 MG (MOBIC) TABLET PO SCH (20:40)
[2018-04-27] MEDS: inSUlin DETERMIR 1 UNIT/0.01 ML (LEVEMIR) CHARGE PER UNIT SQ SCH (20:49)
[2018-04-27] MEDS ORDERED: INSULIN GLARGINE HUM REC ANLOG 65 UNIT SQ SCH (21:00)
[2018-04-27] MEDS ORDERED: NON-FORMULARY MEDICATION 1 EA EA (Meloxicam 15 MG) PO SCH (21:00)
[2018-04-27] MEDS ORDERED: NON-FORMULARY MEDICATION 1 EA EA (Citalopram Hydrobromide (Celexa) 40 MG) PO SCH (21:00)
[2018-04-28] VITALS (7 sets, daily range): BP systolic 120–142; BP diastolic 72–86
[2018-04-28] MEDS: VANCOMYCIN 1500 MG/NS 500 ML IVPB IV SCH ×4 (00:14→14:07)
[2018-04-28] MEDS: PIPERACILLIN/TAZOBACTAM (BULK) 4.5 GM in NS (IVPB) 100 ML IV SCH ×3 (02:29→17:06)
[2018-04-28 05:40] LABS: BASOPHILS % (AUTO) 0 % (0-10); EOSINOPHILS # (AUTO) 0.2 10^3/uL (0.0-0.3); EOSINOPHILS % (AUTO) 3 % (0-10); HEMATOCRIT 39 % (40-54); HEMOGLOBIN 13.6 G/DL (13.3-17.7); LYMPHOCYTES # (AUTO) 2.3 X 10^3 (1.0-4.0); LYMPHOCYTES % (AUTO) 35 % (12-44); MEAN CORPUSCULAR HEMOGLOBIN 31 PG (25-34); MEAN CORPUSCULAR HGB CONC 35 G/DL (32-36); MEAN CORPUSCULAR VOLUME 89 FL (80-99); MEAN PLATELET VOLUME 10.3 FL (7.4-10.4); MONOCYTES # (AUTO) 1.1 X 10^3 (0.0-1.0); MONOCYTES % (AUTO) 16 % (0-12); NEUTROPHILS # (AUTO) 3.2 X 10^3 (1.8-7.8); NEUTROPHILS % (AUTO) 47 % (42-75); PLATELET COUNT 187 10^3/uL (130-400); WHITE BLOOD COUNT 6.8 10^3/uL (4.3-11.0)
[2018-04-28 05:59] LABS: ALANINE AMINOTRANSFERASE 13 U/L (0-55); ALBUMIN 3.4 GM/DL (3.2-4.5); ALKALINE PHOSPHATASE 52 U/L (40-136); BILIRUBIN,TOTAL 0.5 MG/DL (0.1-1.0); BUN/CREATININE RATIO 18; CALCIUM 8.9 MG/DL (8.5-10.1); CARBON DIOXIDE 22 MMOL/L (21-32); CHLORIDE 109 MMOL/L (98-107); CREATININE SERUM 0.78 MG/DL (0.60-1.30); GFR ESTIMATED > 60; GLUCOSE 124 MG/DL (70-105); POTASSIUM 3.4 MMOL/L (3.6-5.0); SODIUM 141 MMOL/L (135-145); TOTAL PROTEIN 6.2 GM/DL (6.4-8.2)
[2018-04-28] MEDS: LACTOBACILLUS ACIDOPHILUS (PROBIOTIC) CAPSULE PO SCH ×3 (06:19→17:06)
[2018-04-28] MEDS: ALPRAZolam 0.5 MG (XANAX) TAB PO PRN ×2 (11:44→22:08)
[2018-04-28] MEDS: inSUlin ASPART (NovoLOG) 1 UNIT/0.01 ML (CHARGE PER UNIT) SC PRN ×2 (11:44→17:06)
--- NOTE | 2018-04-28 11:45 | Progress Note-Hospitalist ---
Subjective HPI/CC On Admission Date Seen by Provider: Apr 28, 2018 Time Seen by Provider: 11:40 Pt is a 43yoCM with a PMH of IDDMII and tobacco abuse who presented as a direct admission from the wound care clinic for worsening left toe wound. He has been following with Jose Bautista APRN at wound care and has been on doxycycline for roughly 1 month and doing well. He had two ulcers on the lateral aspect of his left 5th digit that were responding well to antibiotics and casting up until last week. Cast was removed on 04/22 and wound was much improved per Jose and patient. Then over the next few days he developed malaise and thought he had a fever. On presentation to wound care today and removal of cast wound had worsened and he had streaking erythema on his foot. He was sent for labs and found to have an elevated white count. He was then admitted for failing outpatient management of osteomyelitis. He is an insulin dependent diabetic and reports his blood sugar this morning was around 170 but his significant other at bedside states his blood sugars are very poorly controlled. Patient reports MIREILLE done by Jose at wound clinic was normal during his last visit. Subjective/Events-last exam Pt reports feeling well. Redness improved. Some anxiety but otherwise no complaints. Discussed with RN who has no concerns either. Focused Exam Lactate Level 04/27/18 11:44: Lactic Acid Level 0.82 Objective Exam Vital Signs Vital Signs Date Time Temp Pulse Resp B/P (MAP) Pulse Ox O2 Delivery O2 Flow Rate FiO2 04/28/18 11:33 99.2 81 18 127/73 (91) 96 Room Air Capillary Refill : General Appearance: No Apparent Distress, WD/WN, Chronically ill HEENT: No Scleral Icterus (L), No Scleral Icterus (R) Neck: No Thyromegaly Respiratory: Lungs Clear, No Accessory Muscle Use, No Respiratory Distress Cardiovascular: Regular Rate, Rhythm, No JVD, No Murmur, Normal Peripheral Pulses Gastrointestinal: Normal Bowel Sounds, Non Tender, Soft Extremity: No Calf Tenderness, No Pedal Edema, Other (left foot in bandage,no drainage on bandage, erythema improved) Neurologic/Psychiatric: Alert, Oriented x3, Normal Mood/Affect Skin: Normal Color, Warm/Dry Results/Procedures Lab Laboratory Tests 04/28/18 05:00 Patient resulted labs reviewed. Assessment/Plan Assessment and Plan Assess & Plan/Chief Complaint Sepsis from Osteomyelitis Diagnosis/Problems Diagnosis/Problems (1) Sepsis Status: Acute Assessment & Plan: Sepsis resolved Blood cultures pending Reviewed previous wound culture from 03/30 which grew MRSA Continue Vanc/Zosyn Qualifiers: Sepsis type: sepsis due to unspecified organism Qualified Codes: A41.9 - Sepsis, unspecified organism (2) Osteomyelitis due to type 2 diabetes mellitus Status: Acute Assessment & Plan: Failed outpatient management on Doxycycline Continue Vanc/Zosyn Wound care consulted, appreciate recs (3) Insulin dependent diabetes mellitus Assessment & Plan: Poorly controlled per report from States he is consistent with Lantus but not with prandial insulin BS well controlled today A1c pending Diabetes Education consulted (4) Tobacco abuse Assessment & Plan: Smokes 1.5 to 2ppd Recommended smoking cessation Consult patient education Clinical Quality Measures DVT/VTE Risk/Contraindication: Risk Factor Score Per Nursin RFS Level Per Nursing on Admit: 3=High NATALY ZIEGLER MD Apr 28, 2018 11:45
--- NOTE | 2018-04-28 15:56 | NUR ---
Pt education done with emphasis on regular meals. Pt given information on importance of regular meal every 4 to 5 hours with approx 70g of Carbs per meal. Pt reports it is difficult to eat regularly due to work. Discussed different options to help with meal planning and why he needs to follow a schedule and eating regular meals. Discussed reading labels and portion control. Pt verbalized understanding with no question at this time. Addendum: 04/28/18 at 1602 by JERMAINE STANLEY RN Amended: Links added.
[2018-04-28] MEDS: traZODone 100 MG (DESYREL) TAB PO SCH (22:04)
[2018-04-28] MEDS: inSUlin DETERMIR 1 UNIT/0.01 ML (LEVEMIR) CHARGE PER UNIT SQ SCH (22:04)
[2018-04-28] MEDS: MELOXICAM 7.5 MG (MOBIC) TABLET PO SCH (22:05)
[2018-04-28] MEDS: GABAPENTIN 300 MG (NEURONTIN) CAP PO SCH (22:05)
[2018-04-29] MEDS: VANCOMYCIN 1500 MG/NS 500 ML IVPB IV SCH ×2 (00:40)
[2018-04-29] MEDS: PIPERACILLIN/TAZOBACTAM (BULK) 4.5 GM in NS (IVPB) 100 ML IV SCH ×3 (01:25→17:30)
[2018-04-29] MEDS: LACTOBACILLUS ACIDOPHILUS (PROBIOTIC) CAPSULE PO SCH ×3 (06:04→17:34)
[2018-04-29 07:06] LABS: BASOPHILS % (AUTO) 0 % (0-10); EOSINOPHILS # (AUTO) 0.2 10^3/uL (0.0-0.3); EOSINOPHILS % (AUTO) 4 % (0-10); HEMATOCRIT 39 % (40-54); HEMOGLOBIN 13.9 G/DL (13.3-17.7); LYMPHOCYTES # (AUTO) 2.1 X 10^3 (1.0-4.0); LYMPHOCYTES % (AUTO) 34 % (12-44); MEAN CORPUSCULAR HEMOGLOBIN 32 PG (25-34); MEAN CORPUSCULAR HGB CONC 36 G/DL (32-36); MEAN CORPUSCULAR VOLUME 89 FL (80-99); MEAN PLATELET VOLUME 10.3 FL (7.4-10.4); MONOCYTES # (AUTO) 0.6 X 10^3 (0.0-1.0); MONOCYTES % (AUTO) 10 % (0-12); NEUTROPHILS # (AUTO) 3.3 X 10^3 (1.8-7.8); NEUTROPHILS % (AUTO) 53 % (42-75); PLATELET COUNT 225 10^3/uL (130-400); RED CELL DISTRIBUTION WIDTH 12.1 % (10.0-14.5); WHITE BLOOD COUNT 6.3 10^3/uL (4.3-11.0)
[2018-04-29 07:31] LABS: ALANINE AMINOTRANSFERASE 12 U/L (0-55); ALBUMIN 3.3 GM/DL (3.2-4.5); ALKALINE PHOSPHATASE 52 U/L (40-136); BILIRUBIN,TOTAL 0.3 MG/DL (0.1-1.0); BUN/CREATININE RATIO 22; CALCIUM 8.8 MG/DL (8.5-10.1); CARBON DIOXIDE 24 MMOL/L (21-32); CHLORIDE 106 MMOL/L (98-107); CREATININE SERUM 0.78 MG/DL (0.60-1.30); GFR ESTIMATED > 60; GLUCOSE 166 MG/DL (70-105); POTASSIUM 3.5 MMOL/L (3.6-5.0); SODIUM 138 MMOL/L (135-145); TOTAL PROTEIN 6.2 GM/DL (6.4-8.2)
[2018-04-29 07:55] VITALS: BP 124/84
[2018-04-29] MEDS: inSUlin ASPART (NovoLOG) 1 UNIT/0.01 ML (CHARGE PER UNIT) SC PRN ×3 (09:55→17:31)
[2018-04-29] MEDS: ALPRAZolam 0.5 MG (XANAX) TAB PO PRN ×2 (09:55→21:20)
--- NOTE | 2018-04-29 11:29 | Wound Care Assessment ---
Wound Care Assessment Date Seen by Provider: Apr 29, 2018 Time Seen by Provider: 11:27 Chief Complaint L 5th toe ulcer. HPI The patient is a 43 year old male with cellulitis and sepsis, requiring admission to the hospital, related to recent infection in L 5th toe DFU. The patient's symptoms have resolved with broad spectrum IV antibiotics. The L 5th toe wound probes to bone; debridement has been recommended, explained, discussed and accepted. This is undertaken at bedside under local anesthetic. Past Medical History: Admits Diabetes Type II; Denies Peripheral Artery Disease Kidney stones, pancreatitis, arthritis, Smoking Status: Current Everyday Smoker (1.5-2ppd) Recreational Drug Use: No Alcohol Use: Occasionally Uses Review of Systems General: No Chills, No Malaise Pulmonary: No Dyspnea Cardiovascular: No: Chest Pain Exam Vital Signs Date Time Temp Pulse Resp B/P (MAP) Pulse Ox O2 Delivery O2 Flow Rate FiO2 04/29/18 07:55 98.0 78 20 124/84 (97) 97 Room Air Capillary Refill : General Appearance: no apparent distress HEENT: normal ENT inspection Neck: normal inspection Cardiovascular: regular rate, rhythm Respiratory: normal breath sounds Gastrointestinal: non tender Extremities: other (L 5th toe ulcer -- 1.8 x 1.2 x 0.3 cm, base 75% slough, 25 % granulation, mod. s.s. drainage, probes to bone.) Results Laboratory Tests 04/28/18 11:35: Glucometer 238H 04/28/18 16:08: Glucometer 255H 04/28/18 20:18: Glucometer 219H 04/29/18 05:47: Glucometer 187H 04/29/18 06:04: White Blood Count 6.3, Red Blood Count 4.36, Hemoglobin 13.9, Hematocrit 39L, Mean Corpuscular Volume 89, Mean Corpuscular Hemoglobin 32, Mean Corpuscular Hemoglobin Concent 36, Red Cell Distribution Width 12.1, Platelet Count 225, Mean Platelet Volume 10.3, Neutrophils (%) (Auto) 53, Lymphocytes (%) (Auto) 34 , Monocytes (%) (Auto) 10, Eosinophils (%) (Auto) 4, Basophils (%) (Auto) 0, Neutrophils # (Auto) 3.3, Lymphocytes # (Auto) 2.1, Monocytes # (Auto) 0.6, Eosinophils # (Auto) 0.2, Basophils # (Auto) 0.0, Sodium Level 138, Potassium Level 3.5L, Chloride Level 106, Carbon Dioxide Level 24, Anion Gap 8, Blood Urea Nitrogen 17, Creatinine 0.78, Estimat Glomerular Filtration Rate > 60, BUN/ Creatinine Ratio 22, Glucose Level 166H, Calcium Level 8.8, Corrected Calcium 9.4, Total Bilirubin 0.3, Aspartate Amino Transf (AST/SGOT) 14, Alanine Aminotransferase (ALT/SGPT) 12, Alkaline Phosphatase 52, Total Protein 6.2L, Albumin 3.3 04/29/18 10:59: Glucometer 206H Microbiology 04/27/18 Blood Culture - Preliminary, Resulted No growth 04/27/18 Gram Stain - Final, Resulted 04/27/18 Wound Culture - Preliminary, Resulted Strep agalactiae Group B See Comments Microbiology 04/27/18 Blood Culture - Preliminary, Resulted No growth 04/27/18 Blood Culture - Preliminary, Resulted No growth 04/27/18 Gram Stain - Final, Resulted 04/27/18 Wound Culture - Preliminary, Resulted Strep agalactiae Group B See Comments PROCEDURE NOTE: An appropriate time-out was conducted. The tissue severity pre-debridement was viable bone exposed. The L 5th toe ulcer was anesthetized with 4% Lidocaine cream topically. The area was painted with Betadine solution. An excisional debridement was performed using a curette and a rongeur. Tissue removed included skin, subcutaneous tissue, slough, ligament, joint capsule, articular surface of the PIP joint L 5th toe, and necrotic bone of the proximal and middle phalanges of the 5th toe. The deepest tissue removed was necrotic bone. The patient tolerated the procedure well with minimal pain experienced. The pain level post-debridement was 2. Moderate bleeding was controlled with pressure dressing. Post-debridement wound severity -- Necrotic bone exposed and debrided. Post debridement measurements -- 2.1 x 1.8 x 1.2 cm. Post-debridement diagnosis -- Diabetic foot ulcer, L 5th toe, with necrotic bone at base. Assessment/Plan/Dx 1. Diabetic L 5th toe ulcer, with necrotic bone at base, involving the PIP joint , with septic arthritis. 2. Diabetic polyneuropathy. 3. Tobacco dependency and abuse. Plan: Debridement as above. Dakin's dressings, Oral antibiotics per attending , Follow-up as outpatient with Jose ROSADO,JACOBO G MD Apr 29, 2018 11:29
[2018-04-29 12:00] VITALS: BP 131/73
[2018-04-29] MEDS ORDERED: TROUGH ORDER-PHARMACY XX NR (12:00)
--- NOTE | 2018-04-29 13:31 | Progress Note-Hospitalist ---
Subjective HPI/CC On Admission Date Seen by Provider: Apr 29, 2018 Time Seen by Provider: 13:29 Pt is a 43yoCM with a PMH of IDDMII and tobacco abuse who presented as a direct admission from the wound care clinic for worsening left toe wound. He has been following with Jose Bautista APRN at wound care and has been on doxycycline for roughly 1 month and doing well. He had two ulcers on the lateral aspect of his left 5th digit that were responding well to antibiotics and casting up until last week. Cast was removed on 04/22 and wound was much improved per Jose and patient. Then over the next few days he developed malaise and thought he had a fever. On presentation to wound care today and removal of cast wound had worsened and he had streaking erythema on his foot. He was sent for labs and found to have an elevated white count. He was then admitted for failing outpatient management of osteomyelitis. He is an insulin dependent diabetic and reports his blood sugar this morning was around 170 but his significant other at bedside states his blood sugars are very poorly controlled. Patient reports MIREILLE done by Jose at wound clinic was normal during his last visit. Subjective/Events-last exam Pt reports feeling well. Thinks wound on foot has improved. No complaints. Focused Exam Lactate Level 04/27/18 11:44: Lactic Acid Level 0.82 Objective Exam Vital Signs Vital Signs Date Time Temp Pulse Resp B/P (MAP) Pulse Ox O2 Delivery O2 Flow Rate FiO2 04/29/18 16:01 97.2 69 20 131/86 (101) 97 Room Air Capillary Refill : General Appearance: No Apparent Distress HEENT: No Scleral Icterus (L), No Scleral Icterus (R) Neck: No Thyromegaly Respiratory: No Accessory Muscle Use, No Respiratory Distress Cardiovascular: Normal Peripheral Pulses Extremity: No Calf Tenderness, No Pedal Edema, Other (left 5th digit with necrotic wound and erythema surrounging toe but erythema overall improved) Neurologic/Psychiatric: Alert, Oriented x3, Normal Mood/Affect Skin: Normal Color, Warm/Dry Results/Procedures Lab Laboratory Tests 04/29/18 06:04 Patient resulted labs reviewed. Assessment/Plan Assessment and Plan Assess & Plan/Chief Complaint Sepsis from Osteomyelitis Diagnosis/Problems Diagnosis/Problems (1) Sepsis Status: Acute Assessment & Plan: Sepsis resolved Blood cultures pending Continue on Zosyn as culture only grouping strep Qualifiers: Sepsis type: sepsis due to unspecified organism Qualified Codes: A41.9 - Sepsis, unspecified organism (2) Osteomyelitis due to type 2 diabetes mellitus Status: Acute Assessment & Plan: Failed outpatient management on Doxycycline Continue Zosyn Wound care consulted, appreciate recs Discussed with Dr Infante today Plan for debridement tomorrow (3) Insulin dependent diabetes mellitus Assessment & Plan: Poorly controlled per report from States he is consistent with Lantus but not with prandial insulin BS well controlled today A1c 11.7 Diabetes Education consulted (4) Tobacco abuse Assessment & Plan: Smokes 1.5 to 2ppd Recommended smoking cessation Consult patient education Clinical Quality Measures DVT/VTE Risk/Contraindication: Risk Factor Score Per Nursin RFS Level Per Nursing on Admit: 3=High NATALY ZIEGLER MD Apr 29, 2018 13:31
--- NOTE | 2018-04-29 15:44 | NUR ---
CM/SS, initial interview. Patient plans return home with spouse when medically stable. He has been unable to work due to his medical condition and limits from foot infection and continued wound care here with [facility] weekly. Patient was hospitalized on IV Rx due to failed outpatient regime. He states that physician tentatively plans for him to return home on oral antibiotics. His spouse is employed and carries their insurance, [employer], unfamiliar to chart writer. He indicates coverage is limited and difficult, would anticipate a challenge for home infusion if that was recommended. Additionally, patient resides in [facility] so travel would be equally challenging for a daily regime. Intervention scheduled for tomorrow. Will follow patient progress for post hospital care needs. He does have his routine wound care appointment scheduled next Thursday here at [facility].
[2018-04-29 16:01] VITALS: BP 131/86
[2018-04-29 19:12] VITALS: BP 141/80
[2018-04-29] MEDS: traZODone 100 MG (DESYREL) TAB PO SCH (21:15)
[2018-04-29] MEDS: GABAPENTIN 300 MG (NEURONTIN) CAP PO SCH (21:15)
[2018-04-29] MEDS: MELOXICAM 7.5 MG (MOBIC) TABLET PO SCH (21:15)
[2018-04-29] MEDS: inSUlin DETERMIR 1 UNIT/0.01 ML (LEVEMIR) CHARGE PER UNIT SQ SCH (21:16)
[2018-04-29] MEDS: DAKIN'S 1/4 STRENGTH (0.125%) 473 ML BTL TOP SCH (21:16)
[2018-04-30] VITALS: BP 140/80
[2018-04-30] MEDS: PIPERACILLIN/TAZOBACTAM (BULK) 4.5 GM in NS (IVPB) 100 ML IV SCH ×2 (02:09→08:54)
[2018-04-30] MEDS: LACTOBACILLUS ACIDOPHILUS (PROBIOTIC) CAPSULE PO SCH (05:14)
[2018-04-30 06:48] LABS: BASOPHILS % (AUTO) 0 % (0-10); EOSINOPHILS # (AUTO) 0.2 10^3/uL (0.0-0.3); EOSINOPHILS % (AUTO) 5 % (0-10); HEMATOCRIT 39 % (40-54); HEMOGLOBIN 13.5 G/DL (13.3-17.7); LYMPHOCYTES # (AUTO) 2.2 X 10^3 (1.0-4.0); LYMPHOCYTES % (AUTO) 43 % (12-44); MEAN CORPUSCULAR HEMOGLOBIN 31 PG (25-34); MEAN CORPUSCULAR HGB CONC 35 G/DL (32-36); MEAN CORPUSCULAR VOLUME 89 FL (80-99); MEAN PLATELET VOLUME 10.4 FL (7.4-10.4); MONOCYTES # (AUTO) 0.6 X 10^3 (0.0-1.0); MONOCYTES % (AUTO) 12 % (0-12); NEUTROPHILS % (AUTO) 40 % (42-75); PLATELET COUNT 221 10^3/uL (130-400); RED CELL DISTRIBUTION WIDTH 11.9 % (10.0-14.5)
[2018-04-30 07:07] LABS: ALANINE AMINOTRANSFERASE 13 U/L (0-55); ALBUMIN 3.2 GM/DL (3.2-4.5); ALKALINE PHOSPHATASE 59 U/L (40-136); BILIRUBIN,TOTAL 0.3 MG/DL (0.1-1.0); BUN/CREATININE RATIO 23; CALCIUM 8.7 MG/DL (8.5-10.1); CARBON DIOXIDE 24 MMOL/L (21-32); CHLORIDE 106 MMOL/L (98-107); CREATININE SERUM 0.82 MG/DL (0.60-1.30); GFR ESTIMATED > 60; GLUCOSE 222 MG/DL (70-105); POTASSIUM 3.6 MMOL/L (3.6-5.0); SODIUM 140 MMOL/L (135-145)
--- NOTE | 2018-04-30 07:45 | NUR ---
DR. ROSADO HIS THIS A.M. TO DEBRIDE THE RIGHT TOE. CLEANSE WITH DAKINS AND ROLLER GAUZE A PRIMARY AND SECURE WITH TAPE. THIS RN WILL CONT TO MONITOR THIS PATIENT. DR. ZIEGLER HERE ALSO THIS A.M. AND STATES FOR THE PATIENT TO START 1000 ANTIBIOTIC AT THIS TIME.
[2018-04-30 08:00] VITALS: BP 132/78
[2018-04-30] MEDS: inSUlin ASPART (NovoLOG) 1 UNIT/0.01 ML (CHARGE PER UNIT) SC PRN (08:16)
[2018-04-30] MEDS: DAKIN'S 1/4 STRENGTH (0.125%) 473 ML BTL TOP SCH (08:17)
[2018-04-30] MEDS ORDERED: AMOX500T2 PO (09:03)
--- NOTE | 2018-04-30 09:12 | Discharge Inst-Simple/Standard ---
Discharge Inst-Standard Discharge Medications New, Converted or Re-Newed RX: Transmitted to Pharmacy Patient Instructions/Follow Up Plan of Care/Instructions/FU: Please continue to take your medications as written. Please follow up with Jose Bautista APRN next week. Please keep your wound clean and dressed. Activity as Tolerated: Yes Discharge Diet: ADA Diet Return to The Hospital For: Worsening drainage, redness, fever, if you feel you are getting worse. Planned Outpatient Orders/Ref. Pneu Vac Indicated: Yes NATALY ZIEGLER MD Apr 30, 2018 09:10
--- NOTE | 2018-04-30 09:17 | Discharge Summary-Hospitalist ---
Diagnosis/Chief Complaint Date of Admission Apr 27, 2018 at 10:30 Date of Discharge Discharge Date: Apr 30, 2018 Admission Diagnosis Osteomyelitis Discharge Diagnosis (1) Sepsis Status: Acute Assessment & Plan: Sepsis resolved Blood cultures pending DC on oral abx (2) Osteomyelitis due to type 2 diabetes mellitus Status: Acute Assessment & Plan: Failed outpatient management on Doxycycline Treated with Vanc/Zosyn initially Wound care consulted, appreciate recs Discussed with Dr Infante today Debridement done at bedside with partial removal of bone in 5th digit due to necrosis per Dr Infante (3) Insulin dependent diabetes mellitus Assessment & Plan: Poorly controlled per report from States he is consistent with Lantus but not with prandial insulin BS well controlled today A1c 11.7 Diabetes Education consulted (4) Tobacco abuse Assessment & Plan: Smokes 1.5 to 2ppd Recommended smoking cessation Consult patient education Discharge Summary Discharge Physical Exam Allergies: Coded Allergies: No Known Allergies (Verified Allergy, Unknown, 05/19/05) Vitals & I&Os Vital Signs Date Time Temp Pulse Resp B/P (MAP) Pulse Ox O2 Delivery O2 Flow Rate FiO2 04/30/18 11:15 74 20 132/78 98 Room Air 04/30/18 08:00 98.0 General Appearance: No Apparent Distress HEENT: No Scleral Icterus (L), No Scleral Icterus (R) Respiratory: No Accessory Muscle Use, No Respiratory Distress Cardiovascular: Normal Peripheral Pulses Extremity: No Calf Tenderness, No Pedal Edema, Other (left 5th digit with necrotic wound and erythema surrounging toe but erythema overall improved) Skin: Normal Color, Warm/Dry Neurologic/Psychiatric: Alert, Oriented x3, Normal Mood/Affect Hospital Course Pt was admitted to IV abx after failing outpatient antibiotics for treatment of his osteomyelitis. He met sepsis criteria on arrival which quickly resolved with IV abx. He underwent bedside debridement on 04/30. He was discharged to home to continue on oral antibiotics. He is to see Jose Bautista APRN in the wound clinic next week and follow up with his PCP in the next week or two. He was discharged home in stable condition. I called and discussed his hospital course with his PCP Dr Szymanski. Labs (last 24 hrs) Laboratory Tests 04/29/18 16:39: Glucometer 178H 04/29/18 20:18: Glucometer 169H 04/30/18 05:13: Glucometer 239H 04/30/18 05:15: White Blood Count 5.0, Red Blood Count 4.37, Hemoglobin 13.5, Hematocrit 39L, Mean Corpuscular Volume 89, Mean Corpuscular Hemoglobin 31, Mean Corpuscular Hemoglobin Concent 35, Red Cell Distribution Width 11.9, Platelet Count 221, Mean Platelet Volume 10.4, Neutrophils (%) (Auto) 40L, Lymphocytes (%) (Auto) 43 , Monocytes (%) (Auto) 12, Eosinophils (%) (Auto) 5, Basophils (%) (Auto) 0, Neutrophils # (Auto) 2.0, Lymphocytes # (Auto) 2.2, Monocytes # (Auto) 0.6, Eosinophils # (Auto) 0.2, Basophils # (Auto) 0.0, Sodium Level 140, Potassium Level 3.6, Chloride Level 106, Carbon Dioxide Level 24, Anion Gap 10, Blood Urea Nitrogen 19H, Creatinine 0.82, Estimat Glomerular Filtration Rate > 60, BUN /Creatinine Ratio 23, Glucose Level 222H, Calcium Level 8.7, Corrected Calcium 9.3, Total Bilirubin 0.3, Aspartate Amino Transf (AST/SGOT) 15, Alanine Aminotransferase (ALT/SGPT) 13, Alkaline Phosphatase 59, Total Protein 6.0L, Albumin 3.2 Microbiology 04/27/18 Blood Culture - Preliminary, Resulted No growth 04/27/18 Gram Stain - Final, Complete 04/27/18 Wound Culture - Final, Complete Strep agalactiae Group B See Comments Patient resulted labs reviewed. Pending Labs GRAM STAIN Final Verified 04/28/18- 1426Final [facility] Source: ULCER / TOE Order Location: Fourth Floor-Med/Surg RML gram stain reported 04/28/18 14:05 Few white blood cells Few epithelial cells No bacteria seen WOUND CULTURE RESULT Final Verified 04/30/18- 1314Final [facility] Source: ULCER / TOE Order Location: Fourth Floor-Med/Surg Organism 1 Strep agalactiae Group B FEW ID REPORTED 04/28/18 16:05 Organism 2 SEE COMMENTS . source; toe, left foot Susceptibility testing of penicillins and other beta-lactam drugs approved by the FDA for treatment of group A and group B strep is not necessary for clinical purposes and will not be done routinely since resistant strains have not been recognized (2009 CLSI Antimicrobial Standards) Discussion & Recommendations Discharge Planning: >30 minutes discharge planning Discharge Home Medications: Active Scripts Active Amoxicillin 500 Mg Tablet 500 Mg PO TID Reported Celexa (Citalopram Hydrobromide) 40 Mg Tablet 40 Mg PO HS Gabapentin 300 Mg Capsule 300 Mg PO DAILY PRN Gabapentin 300 Mg Capsule 600 Mg PO HS TAKES 2 (300MG) CAPSULES Krill Oil 1,000 mg Softgel (Krill/Om-3/Dha/Epa/Phospho/Ast) 1 Each Capsule 1, 000 Mg PO DAILY Novolog Flexpen (Insulin Aspart) 300 Units/3 Ml Solution 10-15 Units SQ AC PRN Lantus (Insulin Glargine,Hum.rec.anlog) 100 Unit/1 Ml Vial 65 Unit SQ HS Excedrin Migraine Caplet (Aspirin/Acetaminophen/Caffeine) 1 Each Tablet 2 Tab PO DAILY PRN Doxycycline Hyclate 100 Mg Capsule 100 Mg PO BID Trazodone HCl 100 Mg Tablet 100 Mg PO HS Tramadol HCl 50 Mg Tablet 50 Mg PO BID PRN Alprazolam 0.5 Mg Tablet 0.5 Mg PO TID PRN Meloxicam 15 Mg Tablet 15 Mg PO HS Instructions to patient/family Please see electronic discharge instructions given to patient. Clinical Quality Measures DVT/VTE Risk/Contraindication: Risk Factor Score Per Nursin RFS Level Per Nursing on Admit: 3=High Problem Qualifiers (1) Sepsis: Sepsis type: sepsis due to unspecified organism Qualified Codes: A41.9 - Sepsis, unspecified organism NATALY ZIEGLER MD Apr 30, 2018 09:17
[2018-04-30 11:15] VITALS: BP 132/78
== END 2018-04-30 11:15 | disposition home or self-care (01) | DRG 854 ==
LOC: LAB 09:07 → EDSTATUS 10:20 → 4TH 10:30
PROVIDERS: ADMIT Family Medicine; ATTEND Family Medicine
PROC: 0QBR3ZZ Excision of Left Toe Phalanx, Percutaneous Approach (ICD-10-PCS; principal; 2018-04-30)
DX: A41.9 Sepsis, unspecified organism (principal); E11.69 Type 2 diabetes mellitus with other specified complication; M86.172 Other acute osteomyelitis, left ankle and foot; M00.9 Pyogenic arthritis, unspecified; L03.032 Cellulitis of left toe; F17.210 Nicotine dependence, cigarettes, uncomplicated; E11.42 Type 2 diabetes mellitus with diabetic polyneuropathy; G47.9 Sleep disorder, unspecified; F41.9 Anxiety disorder, unspecified; F32.9 Major depressive disorder, single episode, unspecified; M19.91 Primary osteoarthritis, unspecified site; Z79.4 Long term (current) use of insulin; Z87.19 Personal history of other diseases of the digestive system; Z87.442 Personal history of urinary calculi
CPT/HCPCS: 36415; 73660; 80048; 80053; 82962; 83036; 83605; 85025; 87040; 87070; 87077; 87205

== ENCOUNTER → 2018-04-27 | Outpatient (CLI) | payer OTHER ==
[~2018-04-27] MED LIST changes: +ALPR0.5T7 PO; +ASPI-789 PO; +DOXY100C2 PO; +GABA-488 PO; +INSU100I14 SQ; +INSU100V6 SQ; +KRIL1CAP18 PO; +MELO15TA39 PO; +TRAM50TA2 PO; +TRAZ-190 PO
== END ==
LOC: WOUNDCARE 08:02
PROVIDERS: ATTEND Nurse Practitioner
DX: E11.621 Type 2 diabetes mellitus with foot ulcer (principal); E11.40 Type 2 diabetes mellitus with diabetic neuropathy, unspecified; L97.522 Non-pressure chronic ulcer of other part of left foot with fat layer exposed; M86.072 Acute hematogenous osteomyelitis, left ankle and foot
CPT/HCPCS: 11042

== ENCOUNTER → 2018-05-04 | Outpatient (CLI) | payer OTHER ==
[~2018-05-04] MED LIST changes: +ALPR0.5T7 PO; +AMOX500T2 PO; +ASPI-789 PO; +DOXY100C2 PO; +GABA-488 PO; +INSU100I14 SQ; +INSU100V6 SQ; +KRIL1CAP18 PO; +MELO15TA39 PO; +TRAM50TA2 PO; +TRAZ-190 PO
== END ==
LOC: WOUNDCARE 08:13
PROVIDERS: ATTEND Nurse Practitioner
DX: E11.621 Type 2 diabetes mellitus with foot ulcer (principal); E11.40 Type 2 diabetes mellitus with diabetic neuropathy, unspecified; L97.522 Non-pressure chronic ulcer of other part of left foot with fat layer exposed; M86.072 Acute hematogenous osteomyelitis, left ankle and foot
CPT/HCPCS: 11042

== ENCOUNTER → 2018-05-11 | Outpatient (CLI) | payer OTHER | LOC: WOUNDCARE 08:03 | PROVIDERS: ATTEND Nurse Practitioner | DX: E11.621 Type 2 diabetes mellitus with foot ulcer (principal); E11.40 Type 2 diabetes mellitus with diabetic neuropathy, unspecified; L97.522 Non-pressure chronic ulcer of other part of left foot with fat layer exposed; M86.072 Acute hematogenous osteomyelitis, left ankle and foot | CPT/HCPCS: 11042 ==

== ENCOUNTER → 2018-05-18 | Outpatient (CLI) | payer OTHER | LOC: WOUNDCARE 08:09 | PROVIDERS: ATTEND Nurse Practitioner | DX: E11.621 Type 2 diabetes mellitus with foot ulcer (principal); E11.40 Type 2 diabetes mellitus with diabetic neuropathy, unspecified; L97.522 Non-pressure chronic ulcer of other part of left foot with fat layer exposed; M86.072 Acute hematogenous osteomyelitis, left ankle and foot | CPT/HCPCS: 11042 ==

== ENCOUNTER → 2018-05-25 | Outpatient (CLI) | payer OTHER | LOC: WOUNDCARE 08:14 | PROVIDERS: ATTEND Nurse Practitioner | DX: L97.522 Non-pressure chronic ulcer of other part of left foot with fat layer exposed (principal); M86.072 Acute hematogenous osteomyelitis, left ankle and foot | CPT/HCPCS: 11042 ==

== ENCOUNTER → 2018-06-02 | Outpatient (CLI) | payer OTHER | LOC: WOUNDCARE 08:07 | PROVIDERS: ATTEND Surgery | DX: E11.621 Type 2 diabetes mellitus with foot ulcer (principal); L97.522 Non-pressure chronic ulcer of other part of left foot with fat layer exposed; E11.69 Type 2 diabetes mellitus with other specified complication; M86.072 Acute hematogenous osteomyelitis, left ankle and foot; E11.40 Type 2 diabetes mellitus with diabetic neuropathy, unspecified | CPT/HCPCS: 11044 ==

== ENCOUNTER → 2018-06-09 | Outpatient (CLI) | payer OTHER | LOC: WOUNDCARE 08:06 | PROVIDERS: ATTEND Surgery | DX: E11.621 Type 2 diabetes mellitus with foot ulcer (principal); L97.524 Non-pressure chronic ulcer of other part of left foot with necrosis of bone; E11.69 Type 2 diabetes mellitus with other specified complication; M86.472 Chronic osteomyelitis with draining sinus, left ankle and foot; E11.40 Type 2 diabetes mellitus with diabetic neuropathy, unspecified | CPT/HCPCS: 11044; 87070; 87077; 87205 ==

== ENCOUNTER → 2018-06-16 | Outpatient (CLI) | payer OTHER | LOC: WOUNDCARE 08:11 | PROVIDERS: ATTEND Surgery | DX: E11.621 Type 2 diabetes mellitus with foot ulcer (principal); L97.524 Non-pressure chronic ulcer of other part of left foot with necrosis of bone; E11.69 Type 2 diabetes mellitus with other specified complication; M86.472 Chronic osteomyelitis with draining sinus, left ankle and foot; E11.40 Type 2 diabetes mellitus with diabetic neuropathy, unspecified | CPT/HCPCS: 11044 ==

== ENCOUNTER → 2018-06-23 | Outpatient (CLI) | payer OTHER | LOC: WOUNDCARE 08:04 | PROVIDERS: ATTEND Surgery | DX: E11.621 Type 2 diabetes mellitus with foot ulcer (principal); L97.524 Non-pressure chronic ulcer of other part of left foot with necrosis of bone; E11.69 Type 2 diabetes mellitus with other specified complication; M86.472 Chronic osteomyelitis with draining sinus, left ankle and foot; E11.40 Type 2 diabetes mellitus with diabetic neuropathy, unspecified | CPT/HCPCS: 11044 ==

== ENCOUNTER → 2018-06-30 | Outpatient (CLI) | payer OTHER | LOC: WOUNDCARE 08:08 | PROVIDERS: ATTEND Surgery | DX: E11.621 Type 2 diabetes mellitus with foot ulcer (principal); L97.524 Non-pressure chronic ulcer of other part of left foot with necrosis of bone; E11.69 Type 2 diabetes mellitus with other specified complication; M86.472 Chronic osteomyelitis with draining sinus, left ankle and foot; E11.40 Type 2 diabetes mellitus with diabetic neuropathy, unspecified | CPT/HCPCS: 11044 ==

== ENCOUNTER → 2018-07-06 | Outpatient (CLI) | payer OTHER | LOC: WOUNDCARE 12:58 | PROVIDERS: ATTEND Surgery | DX: E11.621 Type 2 diabetes mellitus with foot ulcer (principal); E11.40 Type 2 diabetes mellitus with diabetic neuropathy, unspecified; L97.522 Non-pressure chronic ulcer of other part of left foot with fat layer exposed; M86.472 Chronic osteomyelitis with draining sinus, left ankle and foot | CPT/HCPCS: 11042 ==

== ENCOUNTER → 2018-07-14 | Outpatient (CLI) | payer OTHER | LOC: WOUNDCARE 08:08 | PROVIDERS: ATTEND Surgery | DX: E11.621 Type 2 diabetes mellitus with foot ulcer (principal); L97.522 Non-pressure chronic ulcer of other part of left foot with fat layer exposed; E11.69 Type 2 diabetes mellitus with other specified complication; M86.272 Subacute osteomyelitis, left ankle and foot; E11.40 Type 2 diabetes mellitus with diabetic neuropathy, unspecified | CPT/HCPCS: 99212 ==

== ENCOUNTER 2019-03-02 02:52 | Emergency (ER) | payer OTHER ==
[~2019-03-02] VITALS: Ht 180.3 cm; Wt 81.8 kg
[~2019-03-02 02:52] MED LIST changes: -TRAM50TA2 PO; +TRM50T PO
[2019-03-02] MEDS ORDERED: SUCCINYLCHOLINE INJ 100 MG/5 ML SYR INJ ONE ×2 (02:55→03:15)
[2019-03-02] MEDS ORDERED: ROCURONIUM 10 MG/ML 5 ML SYRINGE IV ONE ×3 (02:55→03:30)
[2019-03-02] MEDS ORDERED: MIDAZOLAM 5 MG/5 ML (VERSED) VIAL IJ ONE (02:55)
[2019-03-02] MEDS ORDERED: NS IV 1000 ML 1,000 ML IV SCH ×2 (03:15→04:15)
[2019-03-02] MEDS ORDERED: MIDAZOLAM 5 MG/5 ML (VERSED) VIAL IVP ONE ×2 (03:15→04:00)
--- NOTE | 2019-03-02 03:20 | NUR ---
PT. ARRIVED BY EMS WITH THE C/O HAVING HAD A SEIZURE. REPORTED THAT SHE WAS SLEEPING AND WAS AWAKENED BY THE PATIENT HAVING A SEIZURE. PT. IS A KNOWN DIABETIC. THE CALLED EMS. WHEN EMS ARRIVED THE PT WAS CONFUSED AND COMBATIVE. HE ALSO HAD ANOTHER SEIZURE WHILE EMS WAS THERE. THE PT. WAS GIVEN 2 MG. ATIVAN BY EMS PRIOR TO PT. ARRIVAL TO THE ER. EMS STARTED AN IV IN THE RIGHT AC BUT WHEN THE PT. ARRIVED HE WAS SO COMBATIVE AND SWEATY THAT THE TAPE WAS NO LONGER HOLDING THE IV AND THE IV WENT BAD AND HAD TO BE REMOVED. ANOTHER IV WAS STARTED IN THE LEFT FOREARM WITH AN 18 GAUGE AND LABS WERE DRAWN AND SENT TO THE LAB. PT. BS WAS 329 PER EMS. 0309 NORMAL SALINE STARTED WIDE OPEN 0309 5 MG. VERSED GIVEN IVP 0310 150 MG. SUCCS IVP 0314 50 MG. JACQUELINE IVP 0315 PT. INTUBATED WITH A 7.5 ET TUBE, 24 AT THE LIPS. PT. BEING BAGGED. ET WAS 20-90 0320 OCASIO PLACED HAD NO URINE OUTPUT [address] IN RIGHT NARE 0310 SALINE LOCK STARTED IN THE LEFT FOREARM 18 GAUGE AND LABS SENT TO THE LAB 0312 2ND BAG NORMAL SALINE WIDE OPEN 0312 5 MG. VERSED IVP 0312 50 MG JACQUELINE IVP [address] 0346 PT PLACED ON THE VENT RATE 20, TV-550, FIO2 70% THEN AT 0356 INCREASED FIO2 TO 100% PRIOR TO PT BEING TRANSFERRED THE PT. RECEIVED 10 UNITS OF REGULAR INSULIN, 4.5 ZOSYN.
[2019-03-02 03:27] LABS: BASOPHILS # (AUTO) 0.2 10^3/uL (0.0-0.1); BASOPHILS % (AUTO) 1 % (0-10); EOSINOPHILS # (AUTO) 0.5 10^3/uL (0.0-0.3); EOSINOPHILS % (AUTO) 3 % (0-10); HEMATOCRIT 48 % (40-54); HEMOGLOBIN 15.6 G/DL (13.3-17.7); LYMPHOCYTES # (AUTO) 7.7 X 10^3 (1.0-4.0); LYMPHOCYTES % (AUTO) 43 % (12-44); MEAN CORPUSCULAR HEMOGLOBIN 31 PG (25-34); MEAN CORPUSCULAR HGB CONC 33 G/DL (32-36); MEAN CORPUSCULAR VOLUME 95 FL (80-99); MEAN PLATELET VOLUME 9.8 FL (7.4-10.4); MONOCYTES # (AUTO) 1.8 X 10^3 (0.0-1.0); MONOCYTES % (AUTO) 10 % (0-12); NEUTROPHILS # (AUTO) 7.8 X 10^3 (1.8-7.8); NEUTROPHILS % (AUTO) 43 % (42-75); PLATELET COUNT 481 10^3/uL (130-400); RED CELL DISTRIBUTION WIDTH 11.9 % (10.0-14.5)
--- NOTE | 2019-03-02 03:32 | ED General ---
General Chief Complaint: Neurological Problems Stated Complaint: SEIZURES Source of Information: EMS Exam Limitations: Other History of Present Illness Date Seen by Provider: Mar 02, 2019 Time Seen by Provider: 03:27 Initial Comments Patient arrives via EMS delirious and agitated and combative. He went to bed in his usual state of health. He woke up during the night agitated running about the house. EMS was summoned. They found a confused and combative delirious patient. He was nonverbal. His blood sugar was over 300. No known history of drug use. No known trauma. He has a history of diabetes mellitus. He is noncompliant with his insulin pump. Allergies and Home Medications Allergies Coded Allergies: No Known Allergies (Verified Allergy, Unknown, 05/19/05) Home Medications Alprazolam 0.5 Mg Tablet, 0.5 MG PO TID PRN for ANXIETY, (Reported) Amoxicillin 500 Mg Tablet, 500 MG PO TID Prescribed by: NATALY ZIEGLER on 04/30/18 0903 Aspirin/Acetaminophen/Caffeine 1 Each Tablet, 2 TAB PO DAILY PRN for Headache, (Reported) Citalopram Hydrobromide 40 Mg Tablet, 40 MG PO HS, (Reported) Doxycycline Hyclate 100 Mg Capsule, 100 MG PO BID, (Reported) Gabapentin 300 Mg Capsule, 600 MG PO HS, (Reported) TAKES 2 (300MG) CAPSULES Gabapentin 300 Mg Capsule, 300 MG PO DAILY PRN for SORE FEET, (Reported) Insulin Aspart 300 Units/3 Ml Solution, 10-15 UNITS SQ AC PRN for BLOOD SUGAR, (Reported) Insulin Glargine,Hum.rec.anlog 100 Unit/1 Ml Vial, 65 UNIT SQ HS, (Reported) Krill/Om-3/Dha/Epa/Phospho/Ast 1 Each Capsule, 1,000 MG PO DAILY, (Reported) Meloxicam 15 Mg Tablet, 15 MG PO HS, (Reported) Tramadol HCl 50 Mg Tablet, 50 MG PO BID PRN for PAIN-MODERATE, (Reported) Trazodone HCl 100 Mg Tablet, 100 MG PO HS, (Reported) Patient Home Medication List Home Medication List Reviewed: Yes Review of Systems Review of Systems Constitutional: see HPI (unable to obtain full review of systems due to patient's condition.), diaphoresis Psychiatric/Neurological: See HPI Past Erqifyu-Zfodgl-Iubims Hx Patient Social History Alcohol Beverage of Choice: Beer Recent Foreign Travel: No Contact w/Someone Who Travel: No Recent Hopitalizations: No Immunizations Up To Date PED Vaccines UTD: Yes Date of Pneumonia Vaccine: Mar 01, 2013 Date of Influenza Vaccine: Mar 01, 2013 Seasonal Allergies Seasonal Allergies: No Past Medical History Surgeries: Yes (BILAT ING HERNIA, ESS, ) Abdominal, Adenoidectomy, Appendectomy, Tonsillectomy Respiratory: No Currently Using CPAP: No Currently Using BIPAP: No Cardiac: Yes (BP MEDICATIONS IN THE PAST-NOT CURRENTLY) Neurological: Yes Genitourinary: Yes Kidney Stones Gastrointestinal: No (HX OF PANCREATISIS) Pancreatitis Musculoskeletal: Yes Arthritis Endocrine: Yes Diabetes, Insulin dep HEENT: No Loss of Vision: Denies Hearing Impairment: Hard of Hearing Cancer: No Psychosocial: Yes Sleep Difficulties, Anxiety, Depression Integumentary: No Blood Disorders: No Family Medical History Colon cancer MATERNAL GRANDFATHER Completed stroke 19 FATHER Deafness or hearing loss 19 FATHER Diabetes mellitus 19 MOTHER (MOM, BROTHER, AUNTS) Gastroenteritis 19 MOTHER Hypercholesterolemia 19 FATHER Hypertension 19 FATHER 19 MOTHER Neoplasm PATERNAL GRANDFATHER (STOMACH) MATERNAL GRANDFATHER (COLON) Psychosocial problem 19 MOTHER Seizure disorder 19 FATHER Physical Exam Vital Signs Vital Signs - First Documented 03/02/19 03/02/19 03:20 04:45 Temp 35.5 Pulse 127 Resp 28 B/P (MAP) 209/111 (143) Pulse Ox 99 O2 Delivery Room Air O2 Flow Rate 100.00 Capillary Refill : Height, Weight, BMI Height: 5'10.00" Weight: 185lbs. 2.0oz. [id number]; 26.6 BMI Method: General Appearance: Severe Distress (writhing, fighting. It took 2 paramedics and 2 nurses to hold him down.) Eyes: Bilateral Eye Normal Inspection, Bilateral Eye PERRL, Bilateral Eye EOMI HEENT: PERRL/EOMI, Pharynx Normal (poor dentition) Neck: Supple Respiratory: Lungs Clear, Normal Breath Sounds Cardiovascular: Tachycardia Gastrointestinal: Non Tender, Soft Extremity: Normal Capillary Refill, Normal Inspection Neurologic/Psychiatric: Other (delirious agitated combative had to be held down.) Skin: Normal Color, Cool, Diaphoresis, Other (multiple scabs and sores to legs) Focused Exam Lactate Level 03/02/19 03:40: Lactic Acid Level 6.61*H Lactic Acid Level Laboratory Tests Test 03/02/19 03:40 Lactic Acid Level 6.61 MMOL/L (0.50-2.00) *H Progress/Results/Core Measures Suspected Sepsis SIRS Temperature: Pulse: Respiratory Rate: Laboratory Tests 03/02/19 03:10: White Blood Count 18.0H Blood Pressure / Mean: 03/02/19 03:40: Lactic Acid Level 6.61*H Laboratory Tests 03/02/19 03:10: Creatinine 0.75, INR Comment 1.0, Platelet Count 481H, Total Bilirubin 0.3 Results/Orders Lab Results Laboratory Tests Test 03/02/19 03:10 03/02/19 03:40 03/02/19 04:00 Range/Units White Blood Count 18.0 H 4.3-11.0 10^3/uL Red Blood Count 5.04 4.35-5.85 10^6/uL Hemoglobin 15.6 13.3-17.7 G/DL Hematocrit 48 40-54 % Mean Corpuscular Volume 95 80-99 FL Mean Corpuscular Hemoglobin 31 25-34 PG Mean Corpuscular Hemoglobin Concent 33 32-36 G/DL Red Cell Distribution Width 11.9 10.0-14.5 % Platelet Count 481 H 130-400 10^3/uL Mean Platelet Volume 9.8 7.4-10.4 FL Neutrophils (%) (Auto) 43 42-75 % Lymphocytes (%) (Auto) 43 12-44 % Monocytes (%) (Auto) 10 0-12 % Eosinophils (%) (Auto) 3 0-10 % Basophils (%) (Auto) 1 0-10 % Neutrophils # (Auto) 7.8 1.8-7.8 X 10^3 Lymphocytes # (Auto) 7.7 H 1.0-4.0 X 10^3 Monocytes # (Auto) 1.8 H 0.0-1.0 X 10^3 Eosinophils # (Auto) 0.5 H 0.0-0.3 10^3/uL Basophils # (Auto) 0.2 H 0.0-0.1 10^3/uL Neutrophils % (Manual) 42 % Lymphocytes % (Manual) 44 % Monocytes % (Manual) 9 % Eosinophils % (Manual) 3 % Basophils % (Manual) 2 % Band Neutrophils 0 % Blood Morphology Comment NORMAL Prothrombin Time 13.3 12.2-14.7 SEC INR Comment 1.0 0.8-1.4 Activated Partial Thromboplast Time 27 24-35 SEC Sodium Level 137 135-145 MMOL/L Potassium Level 3.9 3.6-5.0 MMOL/L Chloride Level 95 L 98-107 MMOL/L Carbon Dioxide Level 18 L 21-32 MMOL/L Anion Gap 24 H 5-14 MMOL/L Blood Urea Nitrogen 10 7-18 MG/DL Creatinine 0.75 0.60-1.30 MG/DL Estimat Glomerular Filtration Rate > 60 BUN/Creatinine Ratio 13 Glucose Level 427 *H 70-105 MG/DL Calcium Level 9.4 8.5-10.1 MG/DL Corrected Calcium 9.3 8.5-10.1 MG/DL Total Bilirubin 0.3 0.1-1.0 MG/DL Aspartate Amino Transf (AST/SGOT) 21 5-34 U/L Alanine Aminotransferase (ALT/SGPT) 21 0-55 U/L Alkaline Phosphatase 98 40-136 U/L Total Protein 8.4 H 6.4-8.2 GM/DL Albumin 4.1 3.2-4.5 GM/DL Salicylates Level < 5.0 L 5.0-20.0 MG/DL Acetaminophen Level < 10 L 10-30 UG/ML Serum Alcohol < 10 <10 MG/DL Lactic Acid Level 6.61 *H 0.50-2.00 MMOL/L Blood Gas Puncture Site RT RAD Blood Gas Patient Temperature 35.5 Arterial Blood pH 6.97 *L 7.37-7.43 Arterial Blood Partial Pressure CO2 114 *H 35-45 MMHG Arterial Blood Partial Pressure O2 329 H 79-93 MMHG Arterial Blood HCO3 26 23-27 MMOL/L Arterial Blood Total CO2 29.7 21.0-31.0 MMOL/L Arterial Blood Oxygen Saturation 100 94-100 % Arterial Blood Base Excess -7.9 L -2.5-2.5 MMOL/L Prabhakar Test NA Blood Gas Ventilator Setting YES Blood Gas Inspired Oxygen 100% My Orders Orders - PRECIOUS BANSAL MD Chest 1 View Ap/Pa Only (03/02/19 03:03) Acetaminophen (03/02/19 03:05) Alcohol (03/02/19 03:05) Cbc With Automated Diff (03/02/19 03:05) Comprehensive Metabolic Panel (03/02/19 03:05) Creatine Kinase (03/02/19 03:05) Drug Screen Stat (Urine) (03/02/19 03:05) Lactic Acid Analyzer (03/02/19 03:05) Salicylate (03/02/19 03:05) Ua Culture If Indicated (03/02/19 03:05) Ns Iv 1000 Ml (Sodium Chloride 0.9%) (03/02/19 03:15) Ct Head Wo (03/02/19 03:05) Midazolam Injection (Versed Injection) (03/02/19 03:15) Succinylcholine Injection (Succinylcholi (03/02/19 03:15) Rocuronium 5 Ml Syringe (Rocuronium 5 Ml (03/02/19 03:15) Rocuronium 5 Ml Syringe (Rocuronium 5 Ml (03/02/19 03:30) Protime With Inr (03/02/19 03:26) Partial Thromboplastin Time (03/02/19 03:26) Manual Differential (03/02/19 03:10) Ng Tube Insert & Assessment (03/02/19 03:40) Catheter(Uri) To Dependent Zoey (03/02/19 03:40) Arterial Blood Gas (03/02/19 03:46) Midazolam Injection (Versed Injection) (03/02/19 04:00) Ns Iv 1000 Ml (Sodium Chloride 0.9%) (03/02/19 04:15) Insulin (Regular) Human (Humulin R (Per (03/02/19 04:15) Piperacillin/Tazobactam (Bulk) (Zosyn In (03/02/19 04:15) Piperacillin Sodium/Tazobactam (Zosyn Vi (03/02/19 04:23) Ns (Ivpb) (Sodium Chloride 0.9% Ivpb Bag (03/02/19 04:24) Ed Iv/Invasive Line Start (03/02/19 05:08) Medications Given in ED Current Medications Medications Dose Ordered Sig/Ruperto Route Start Time Stop Time Status Last Admin Dose Admin Insulin Human Regular 10 unit ONCE ONCE IV 03/02/19 04:15 03/02/19 04:16 DC 03/02/19 04:41 10 UNIT Midazolam HCl 5 mg ONCE ONCE IVP 03/02/19 03:15 03/02/19 03:16 DC 03/02/19 03:09 5 MG Midazolam HCl 5 mg ONCE ONCE IVP 03/02/19 04:00 03/02/19 04:02 DC 03/02/19 03:12 5 MG Piperacillin Sod/ Tazobactam Sod 4.5 gm/Sodium Chloride 120 ml @ 240 mls/hr ONCE ONCE IV 03/02/19 04:15 03/02/19 04:44 DC 03/02/19 04:41 240 MLS/HR Rocuronium Brogan 50 mg ONCE ONCE IV 03/02/19 03:15 03/02/19 03:16 DC 03/02/19 03:14 50 MG Rocuronium Brogan 50 mg ONCE ONCE IV 03/02/19 03:30 03/02/19 03:31 DC 03/02/19 03:12 50 MG Sodium Chloride 100 ml @ ud STK-MED ONCE .ROUTE 03/02/19 04:24 03/02/19 04:29 DC 03/02/19 03:09 100 MLS/HR Succinylcholine Chloride 150 mg ONCE ONCE INJ 03/02/19 03:15 03/02/19 03:16 DC 03/02/19 03:10 150 MG Vital Signs/I&O 03/02/19 03/02/19 03:20 04:45 Temp 35.5 36.1 Pulse 127 130 Resp 28 20 B/P (MAP) 209/111 (143) 98/69 Pulse Ox 99 100 O2 Delivery Room Air Mechanical Ventilator O2 Flow Rate 100.00 Capillary Refill : Progress Note : Time: 03:30 Progress Note On arrival was determined the patient needed to be heavily sedated and intubated to protect his airway. This was accomplished with RSI and 8. 0 ET tube by the paramedics. He was paralyzed with rocuronium 100 mg. X-ray showed good ET tube position. Additional IV was obtained and Yanez catheter was inserted well as a NG tube. He then went to CT scan. Pressure was noted to be elevated and heart rate remained in the 140s Departure Communication (Admissions) Remains paralyzed sedated. Air ambulance here for transport to [facility]. Impression Primary Impression: Acidosis, metabolic Additional Impressions: Acute respiratory acidosis Lactic acidosis DKA (diabetic ketoacidoses) CVA (cerebral vascular accident) Disposition: SHT-TRM HOSP Condition: Critical Transfer Transfer Reason: Exceeds level of care Time Spoke to Accepting Phy: 04:15 Transfer Progress Notes Patient will obviously require higher level of care. He appears to have a mixed metabolic and respiratory acidosis. The cva may be a result of his medical problems and is currently not in need of thrombolytics or PCI. I spoke with Dr. Kalyn orlando the stroke doctor secretary to board of commissioners at [facility]. It was felt that with his multiple medical problems he should be transferred to the medical ICU. I spoke with Dr. Sunshine (trust vault custodian). He accepted transfer to the medical ICU. Patient was hydrated with normal saline but had no urine output while in the E R. His ventilator settings were increased respiratory rate of 22 given his respiratory acidosis. He was given IV insulin but no drip as it was not allowed by the air ambulance. Zosyn was given as an antibiotic given the patient's high, white count and lactic acidosis (blood cultures were unable to be drawn due to lack of time).. He required high doses of sedation and paralytics. On exam as arrival they gave him Versed and rocuronium and fentanyl. He is currently on the ventilator at 600 x 22 100 percent O2. And will be transported to [facility]. Family says he is not compliant with his insulin pump but they are not very aware of his medical issues. Transfer Time: 05:00 Transfer Facility: [facility] Method of Transfer: Air Departure-Patient Inst. Referrals: OMARI FERREIRA MD (PCP) Primary Care Physician FANY WALTER APRN (Family) Primary Care Physician PRECIOUS BANSAL MD Mar 02, 2019 03:31
[2019-03-02 03:43] LABS: BAND NEUTROPHILS 0 %; BASOPHILS % (MANUAL) 2 %; EOSINOPHILS % (MANUAL) 3 %; LYMPHOCYTES % (MANUAL) 44 %; MONOCYTES % (MANUAL) 9 %; NEUTROPHILS % (MANUAL) 42 %; PROTHROMBIN TIME PATIENT 13.3 SEC (12.2-14.7); RBC MORPH NORMAL
[2019-03-02 03:46] LABS: BUN/CREATININE RATIO 13; CARBON DIOXIDE 18 MMOL/L (21-32); CHLORIDE 95 MMOL/L (98-107); CREATININE SERUM 0.75 MG/DL (0.60-1.30); GFR ESTIMATED > 60; POTASSIUM 3.9 MMOL/L (3.6-5.0); SODIUM 137 MMOL/L (135-145)
[2019-03-02 03:47] LABS: ALANINE AMINOTRANSFERASE 21 U/L (0-55); ALBUMIN 4.1 GM/DL (3.2-4.5); ALKALINE PHOSPHATASE 98 U/L (40-136); BILIRUBIN,TOTAL 0.3 MG/DL (0.1-1.0); CALCIUM 9.4 MG/DL (8.5-10.1); GLUCOSE 427 MG/DL (70-105); SALICYLATE < 5.0 MG/DL (5.0-20.0); TOTAL PROTEIN 8.4 GM/DL (6.4-8.2)
[2019-03-02 03:48] LABS: ACETAMINOPHEN < 10 UG/ML (10-30)
[2019-03-02 04:07] LABS: ABG BASE EXCESS -7.9 MMOL/L (-2.5-2.5); ABG OXYGEN SATURATION 100 % (94-100); ABG PCO2 114 MMHG (35-45); ABG PH 6.97 (7.37-7.43); ABG PO2 329 MMHG (79-93); ABG TCO2 29.7 MMOL/L (21.0-31.0); INSPIRED O2 100%; VENTILATOR YES
[2019-03-02 04:08] LABS: PATIENT TEMP 35.5
[2019-03-02] MEDS ORDERED: PIPERACILLIN/TAZOBACTAM (BULK) 4.5 GM in NS (IVPB) 100 ML IV ONE (04:15)
[2019-03-02] MEDS ORDERED: inSUlin (REGULAR) HUMAN 1 UNIT/0.01 ML (CHARGE PER UNIT) IV ONE (04:15)
[2019-03-02] MEDS ORDERED: PIPERACILLIN/TAZO 4.5 GM VIAL (ZOSYN) IV ONE (04:23)
[2019-03-02] MEDS ORDERED: NS (IVPB) 100 ML ONE (04:24)
[2019-03-02 04:45] VITALS: BP 98/69
--- NOTE | 2019-03-02 06:15 | Diagnostic Imaging Report ---
PROCEDURE: CT head without contrast. TECHNIQUE: Multiple contiguous axial images were obtained through the brain without the use of intravenous contrast. Auto Exposure Controls were utilized during the CT exam to meet ALARA standards for radiation dose reduction. INDICATION: Seizure. No prior examinations are available for comparison. FINDINGS: The ventricles and sulci are within normal limits. There is no hydrocephalus. There is no midline shift. There is somewhat ill-defined area of decreased attenuation in the left occipital lobe and temporal lobe suspect for developing CVA. There is no mass or hemorrhage. Calvarium is intact. There is left maxillary sinus disease. Remaining paranasal sinuses and mastoid air cells are clear. IMPRESSION: Ill-defined area of decreased attenuation left occipital and temporal lobes compatible with subacute CVA. Further evaluation with MRI is recommended. Left maxillary sinus disease. No evidence of intracranial hemorrhage Dictated by: Dictated on workstation # [id number]
--- NOTE | 2019-03-02 06:56 | Diagnostic Imaging Report ---
INDICATION: Seizure. FINDINGS: ET and NG tubes are in satisfactory position. Heart size is normal. There is no pleural effusion or pneumothorax. Mediastinum is unremarkable. IMPRESSION: No acute cardiopulmonary abnormality. Dictated by: Dictated on workstation # [id number]
[2019-03-02 14:19] LABS: CREATINE KINASE 290 U/L (30-200)
[2019-03-09] MEDS ORDERED: OMEP20CA13 PO (13:31)
== END 2019-03-02 04:45 | disposition short-term general hospital (02) ==
LOC: EDUNIT# 02:52 → ER FS 02:54
DX: E87.4 Mixed disorder of acid-base balance (principal); E11.10 Type 2 diabetes mellitus with ketoacidosis without coma; I63.9 Cerebral infarction, unspecified; F41.9 Anxiety disorder, unspecified; F32.9 Major depressive disorder, single episode, unspecified; Z91.14 Patient's other noncompliance with medication regimen; Z79.82 Long term (current) use of aspirin; Z79.4 Long term (current) use of insulin; Z90.49 Acquired absence of other specified parts of digestive tract; Z90.89 Acquired absence of other organs; Z87.442 Personal history of urinary calculi; Z80.0 Family history of malignant neoplasm of digestive organs; Z82.49 Family history of ischemic heart disease and other diseases of the circulatory system
CPT/HCPCS: 31500; 36415; 51702; 70450; 71045; 80053; 80320; 80329; 82550; 82805; 83605; 85007; 85027; 85610; 85730; 96374; 96375

== ENCOUNTER 2019-03-09 10:37 | Inpatient (IN) | payer OTHER ==
[~2019-03-09] VITALS: Ht 177.8 cm; Wt 83.4 kg
[2019-03-09] MEDS ORDERED: BISACODYL 10 MG SUPP (DULCOLAX) PR PRN (10:45)
[2019-03-09] MEDS ORDERED: FLEET ENEMA ADULT 1 EA BTL PR PRN (10:45)
[2019-03-09] MEDS ORDERED: ACETAMINOPHEN 500 MG TAB (TYLENOL) PO PRN (10:45)
[2019-03-09] MEDS ORDERED: ONDANSETRON 4 MG (ZOFRAN) ORAL DISSOLVE TAB PO PRN (10:45)
[2019-03-09] MEDS ORDERED: LOPERAMIDE 2 MG (IMODIUM) TABLET PO PRN (10:45)
[2019-03-09] MEDS ORDERED: DOCUSATE SODIUM 100 MG (COLACE) CAP PO PRN (10:45)
[2019-03-09] MEDS ORDERED: guaiFENesin/CODEINE (ROBITUSSIN AC) 10ML UDC PO PRN (10:45)
[2019-03-09] MEDS ORDERED: CALCIUM CARBONATE 500 MG (TUMS) TAB.CHEW PO PRN (10:45)
[2019-03-09] MEDS ORDERED: HYDROcodone/APAP 5 MG/325 MG (LORTAB) TAB PO PRN (10:45)
[2019-03-09] MEDS ORDERED: LACTULOSE SYRUP 10GM/15ML (ENULOSE) 30ML UDC PO PRN (10:45)
[2019-03-09] MEDS ORDERED: diphenhydrAMINE 25 MG TAB (BENADRYL) PO PRN (10:45)
[2019-03-09] MEDS ORDERED: INSU100I10 SQ (13:31)
[2019-03-09] MEDS ORDERED: LEVE500T6 PO (13:31)
[2019-03-09] MEDS ORDERED: ASPI-983 PO (13:31)
[2019-03-09] MEDS ORDERED: NICO-588 TD (13:31)
[2019-03-09] MEDS ORDERED: INSU100I14 SQ (13:31)
[2019-03-09] MEDS ORDERED: NICO4GUM BC (13:31)
[2019-03-09] MEDS ORDERED: ATOR40TA PO (13:31)
[2019-03-09] MEDS ORDERED: GABA800T10 PO (13:31)
[2019-03-09] MEDS ORDERED: OMEP-280 PO (13:31)
[2019-03-09] MEDS ORDERED: ATOR20TA66 PO (16:06)
--- NOTE | 2019-03-09 16:07 | NUR ---
UPDATED MED REC WITH THE DISCHARGE ORDERS FROM . THE FOLLOWING CHANGES WERE MADE AT THAT DISCHARGE: START TAKING: ASPIRIN 81MG DAILY NOVOLOG FLEXPEN 12 UNITS TID WITH MEALS LANTUS SOLOSTAR 30 UNITS HS KEPPRA 500MG BID NICOTINE PATCH 21MG 2 PATCHES DAILY NICOTINE 4MG GUM Q1H PRN STOP TAKING: ALPRAZOLAM 0.5MG MELOXICAM 15MG NAPROXEN 500MG (HAS NOT BEEN FILLED RECENTLY) NOTE THE LIST OF MEDICATIONS [facility] HAS RECENTLY FILLED HAS LIPITOR 20MG, I UPDATED THIS ON THE MED REC, THE DISCHARGE ORDERS STATED TO CONTINUE TO TAKE 40MG HOWEVER THIS WAS NOT THE DOSE THAT THE PATIENT WAS TAKING AT HOME. I WILL UPDATE THE MED REC BACK TO THE LIST OF MEDICATIONS HE WAS TAKING PRIOR TO THE DISCHARGE FROM AT A LATER DATE FOR PROPER DISCHARGE TO HOME ORDERS. Addendum: 03/10/19 at 0913 by FANY HUANG [facility] REMOVED THE 6 NEW MEDICATION ORDERS FROM THE MED REC THAT WERE ORDERED AT DISCHARGE FROM . I ADDED BACK THE MELOXICAM AND ALPRAZOLAM THAT WERE STOPPED AT THAT DISCHARGE. I ALSO ADDED BACK TRAMADOL THAT WAS FILLED 50MG TID PRN 02-25-19. OMEPRAZOLE WAS ORDERED TO CONTINUE, THIS WAS NOT FILLED RECENTLY BUT MAY BE OTC. [facility] ARIANA MCCONNELL FILLED: 02-25-19 LIPITOR 20MG DAILY (WAS REPORTED 40MG ON PAPERWORK, I CHANGED TO 20MG) 02-25-19 CITALOPRAM 40MG DAILY 02-25-19 GABAPENTIN 800MG TID 02-25-19 TRAZODONE 100MG HS 02-25-19 ALPRAZOLAM 0.5MG DAILY PRN 02-25-19 MELOXICAM 15MG DAILY 02-25-19 TRAMADOL 50MG TID PRN DECEMBER NOVOLOG 75 UNITS DAILY (THIS WAS NOT ON THE MED LIST TO CONTINUE FROM BUT A NEW ORDER FOR A NEW DOSE WAS, I LEFT THIS OFF THE MED REC AT THIS TIME TO BE ORDERED AT DISCHARGE)
--- NOTE | 2019-03-09 17:00 | NUR ---
KELLE SOMMER admitted to room 224-1, with an admitting diagnosis of CVA, on 03/09/19 from [facility] via WHEELCHAIR, accompanied by AND NURSE.SOMMER NINA introduced to surroundings, call light, bed controls, phone, TV, temperature control, lights, meal times, smoking policy, visitor policy, side rail policy, bathrooms and showers. Patient Rights given to patient in the handbook.SOMMER NINA verbalizes understanding that [facility] is not responsible for the loss or damage to any personal effects or valuables that are kept in the patients posession during their hospitalization. The following Patient Care Plans were discussed with the PT: Discharge Planning and CVA. SOMMER NINA verbalizes understanding of Interdisciplinary Patient Education. Patient received Patient Rights Booklet, which includes Privacy Act Statement and Data Collection Information Summary. LEFT EYE IS RED AND [facility] NURSE SAID SCLERITIS WAS DIAGNOSED TODAY. DR. ALLEN INFORMED AND DR. WATTERS IS CONSULTED. PATIENT ADMITS TO MILD WEAKNESS IN RIGHT EXTREMETIES AND HAS RIGHT PERIPHERAL VISION LOSS AND DEPTH PERCEPTION. RATES PAIN A "3" IN LEFT EYE.
--- NOTE | 2019-03-09 17:09 | PM&R Post Admission Assessment ---
PM&R Date of Visit: Mar 09, 2019 Time of Visit: 17:10 History of Present Illness Chief complaint: Recovery from CVA History of present illness: This is a 43-year-old white male with type I diabetes with multiple episodes of DKA and complete noncompliance with insulin and insulin pump who [facility] a [facility] treated by Rosario Raya almond huller who presented to inpatient rehabilitation from after transferred there from [place] on 03/02/19 due to findings consistent with stroke. He had hypercapnic respiratory failure requiring intubation and metabolic acidosis so he was transferred in critical condition to underwent transesophageal echocardiogram to evaluate the source of the stroke due to his young age. At this current time he has right eye hemianopsia and just a recent diagnosis yesterday of left eye scleritis of which optometry will come to see him today to evaluate the need for eyedrops since it is still uncomfortable. 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 He is . At this current time he denies any pain he is weak on his right side but he has no evidence of any confusion and no other major issues since this catastrophic event. 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) Alcohol Use: Occasionally Uses Alcohol Beverage of Choice: Beer Smoking Status: Current Everyday Smoker Recent Hopitalizations: No Immunizations Up To Date Pediatric: Yes Date of Pneumonia Vaccine: Mar 01, 2013 Date of Influenza Vaccine: Mar 01, 2013 Seasonal Allergies Seasonal Allergies: No Past Medical History Surgeries: Abdominal, Adenoidectomy, Appendectomy, Tonsillectomy Currently Using CPAP: No Currently Using BIPAP: No Neurological: Neuropathy, Stroke (03/02/19) Genitourinary: Kidney Stones Gastrointestinal: Pancreatitis Musculoskeletal: Arthritis Endocrine: Diabetes, Insulin dep Loss of Vision: Denies Hearing Impairment: Hard of Hearing Psychosocial: Sleep Difficulties, Anxiety, Depression History of Blood Disorders: No Family History Colon cancer MATERNAL GRANDFATHER Completed stroke 19 FATHER Deafness or hearing loss 19 FATHER Diabetes mellitus 19 MOTHER (MOM, BROTHER, AUNTS) Gastroenteritis 19 MOTHER Hypercholesterolemia 19 FATHER Hypertension 19 FATHER 19 MOTHER Neoplasm PATERNAL GRANDFATHER (STOMACH) MATERNAL GRANDFATHER (COLON) Psychosocial problem 19 MOTHER Seizure disorder 19 FATHER PM&R Allergy/Meds/Data Review Allergies Coded Allergies: NKANo Known Allergies (Verified Allergy, Unknown, 05/19/05) Home Medications Scheduled Atorvastatin Calcium (Atorvastatin Calcium), 20 MG PO HS, (Reported) Citalopram Hydrobromide (Celexa), 40 MG PO DAILY, (Reported) Gabapentin (Gabapentin), 800 MG PO TID, (Reported) Meloxicam (Meloxicam), 15 MG PO DAILY, (Reported) Omeprazole (Omeprazole), 20 MG PO DAILY, (Reported) Scheduled PRN Alprazolam (Alprazolam), 0.5 MG PO DAILY PRN for ANXIETY, (Reported) Tramadol HCl (Tramadol HCl), 50 MG PO TID PRN for PAIN-MODERATE (5-7), (Reported) Trazodone HCl (Trazodone HCl), 100 MG PO HS PRN for SLEEP, (Reported) Discontinued Medications Alprazolam (Alprazolam), 0.5 MG PO TID PRN for ANXIETY, (Reported) Discontinued Reason: No Longer Taking Amoxicillin (Amoxicillin), 500 MG PO TID Discontinued Reason: No Longer Taking Aspirin/Acetaminophen/Caffeine (Excedrin Migraine Caplet), 2 TAB PO DAILY PRN for Headache, (Reported) Discontinued Reason: No Longer Taking Atorvastatin Calcium (Lipitor), 40 MG PO HS, (Reported) Discontinued Reason: Prescription changed Doxycycline Hyclate (Doxycycline Hyclate), 100 MG PO BID, (Reported) Discontinued Reason: No Longer Taking Gabapentin (Gabapentin), 600 MG PO HS, (Reported) Discontinued Reason: New Order Gabapentin (Gabapentin), 300 MG PO DAILY PRN for SORE FEET, (Reported) Discontinued Reason: New Order Insulin Aspart (Novolog Flexpen), 10-15 UNITS SQ AC PRN for BLOOD SUGAR, ( Reported) Discontinued Reason: New Order Insulin Glargine,Hum.rec.anlog (Lantus), 65 UNIT SQ HS, (Reported) Discontinued Reason: Prescription changed Krill/Om-3/Dha/Epa/Phospho/Ast (Krill Oil 1,000 mg Softgel), 1,000 MG PO DAILY, (Reported) Discontinued Reason: No Longer Taking Meloxicam (Meloxicam), 15 MG PO HS, (Reported) Discontinued Reason: No Longer Taking Tramadol HCl (Tramadol HCl), 50 MG PO BID PRN for PAIN-MODERATE, (Reported) Discontinued Reason: No Longer Taking Current Medications Current Medications Reviewed Review of Systems Constitutional: see HPI EENTM: eye pain (left), vision loss (right) Psychiatric/Neurological: Anxiety, Depressed, Weakness All Other Systems Reviewed Negative Unless Noted: Yes Physical Exam Physical Exam Vital Signs Capillary Refill : Height, Weight, BMI Height: 5'10.00" Weight: 185lbs. 2.0oz. 83.248772tq; 25.00 BMI Method: General Appearance: No Apparent Distress, WD/WN, Anxious, Chronically ill Eyes: Bilateral Eye Normal Inspection, Bilateral Eye PERRL HEENT: Normal ENT Inspection, Pharynx Normal, Other (left conjunctiva injected) Neck: Full Range of Motion, Normal Inspection, Non Tender, Supple, Carotid Bruit Respiratory: Chest Non Tender, Lungs Clear, Normal Breath Sounds, No Accessory Muscle Use, No Respiratory Distress Cardiovascular: Regular Rate, Rhythm, No Edema, No Gallop, No JVD, No Murmur, Normal Peripheral Pulses Gastrointestinal: Normal Bowel Sounds, No Organomegaly, No Pulsatile Mass, Non Tender, Soft Back: Normal Inspection, No CVA Tenderness, No Vertebral Tenderness Extremity: Normal Capillary Refill, Normal Inspection, Normal Range of Motion, Non Tender, No Calf Tenderness, No Pedal Edema Neurologic/Psychiatric: Alert, Oriented x3, Normal Mood/Affect, sephora product consultant II-XII Norm as Tested, Abnormal Gait, Motor Weakness (right arm and leg) Skin: Normal Color, Warm/Dry Lymphatic: No Adenopathy PM&R Medical Assessment & Plan REHAB/MEDICAL ASSESSMENT AND PLAN: REHAB IMPAIRMENT GROUP: CVA ETIOLOGIC DIAGNOSIS: CVA The comorbidities that impact the patients function and/or functional outcome by: Diabetes mellitus type I [id number] hemoglobin A1c of 16.1, severe noncompliance with insulin, smoker REHAB PLAN: The patient is being admitted to our comprehensive inpatient rehabilitation facility and can tolerate the intensity of service consisting of at least: 180 minutes of therapy a day, 5 out of 7 days a week Rehab treatment will consist of: PT OT will focus on regaining enough independence to return to prior level of functioning and 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 The patient has potential to make improvement and is in need of at least two of the following multidisciplinary therapies including but not limited to physical, occupational, speech, and prosthetics and orthotics. Additionally the patient will need services from respiratory, nutritional services, wound care, psychology, etc. (Customize this to each patient). Given the patients complex condition and risk of further medical complications, rehabilitation services cannot be safely or effectively provided at a lower level of care such as a jail facility. BARRIERS TO DISCHARGE: Noncompliance ESTIMATED LOS: 7 days DISPOSITION: Home with RELEVANT CHANGES SINCE PREADMISSION SCREENING: I have compared the patients medical and functional status at the time of the preadmission screening and there are: no changes PROGNOSIS: Good REHABILITATION GOALS: 1. PT and OT will initiate aggressive regimen to return patient to prior level of functioning All the above goals were reviewed with the patient and he/she is in agreement. By signing this document, I acknowledge that I have personally performed a full physical examination on this patient within 24 hours of admission to this [facility] rehabilitation facility and have determined the patient to be able to tolerate the above course of treatment at an intensive level for a reasonable period of time. I will be completing a detailed individualized Plan of Care for this patient by day #4 of the patients stay based upon the Preadmission Screen, the Post-Admission Evaluation, and the therapy evaluations. Admission Dx/Comorbidities: (1) Cryptogenic stroke ICD Codes: I63.9 - Cerebral infarction, unspecified (2) Hx of diabetes with ketoacidosis ICD Codes: Z86.39 - Personal history of other endocrine, nutritional and metabolic disease (3) Hemianopia of right eye ICD Codes: H53.461 - Homonymous bilateral field defects, right side (4) Occipital stroke ICD Codes: I63.9 - Cerebral infarction, unspecified (5) Metabolic acidosis ICD Codes: E87.2 - Acidosis (6) Poorly controlled type 1 diabetes mellitus ICD Codes: E10.65 - Type 1 diabetes mellitus with hyperglycemia (7) Seizure disorder ICD Codes: G40.909 - Epilepsy, unspecified, not intractable, without status epilepticus (8) Diabetic retinopathy ICD Codes: E11.319 - Type 2 diabetes mellitus with unspecified diabetic retinopathy without macular edema (9) Renal stones ICD Codes: N20.0 - Calculus of kidney (10) Gout ICD Codes: M10.9 - Gout, unspecified (11) Arthritis ICD Codes: M19.90 - Unspecified osteoarthritis, unspecified site (12) Smoker ICD Codes: F17.200 - Nicotine dependence, unspecified, uncomplicated (13) Marijuana use ICD Codes: F12.90 - Cannabis use, unspecified, uncomplicated (14) Scleritis ICD Codes: H15.009 - Unspecified scleritis, unspecified eye (15) Depression ICD Codes: F32.9 - Major depressive disorder, single episode, unspecified (16) Hx of respiratory failure ICD Codes: Z87.09 - Personal history of other diseases of the respiratory system (17) History of ventilator dependency ICD Codes: Z99.11 - Dependence on respirator [ventilator] status (18) Metabolic encephalopathy ICD Codes: G93.41 - Metabolic encephalopathy (19) Status post placement of implantable loop recorder ICD Codes: Z95.818 - Presence of other cardiac implants and grafts (20) Hyperlipemia ICD Codes: E78.5 - Hyperlipidemia, unspecified (21) GERD (gastroesophageal reflux disease) ICD Codes: K21.9 - Gastro-esophageal reflux disease without esophagitis (22) Neuropathy ICD Codes: G62.9 - Polyneuropathy, unspecified (23) S/P transesophageal echocardiogram (TRINA) ICD Codes: Z98.890 - Other specified postprocedural states (24) Right sided weakness ICD Codes: R53.1 - Weakness Assessment/Plan Admission Dx CVA Admission Status: Inpatient Order (span 2 midnights) Reason for Inpatient Admission: Inpatient rehabilitation Assessment and Plan Assessment: CVA Right eye hemianopsia Left eye acute scleritis Smoker Noncompliance Diabetes mellitus type I noncompliant with insulin Plan: Inpatient rehabilitation protocol Optometry evaluation for left eye scleritis Bowel regimen Blood sugar control Problems: (1) Cryptogenic stroke (2) Hx of diabetes with ketoacidosis (3) Hemianopia of right eye (4) Occipital stroke (5) Metabolic acidosis (6) Poorly controlled type 1 diabetes mellitus (7) Seizure disorder (8) Diabetic retinopathy (9) Renal stones (10) Gout (11) Arthritis (12) Smoker (13) Marijuana use (14) Scleritis (15) Depression (16) Hx of respiratory failure (17) History of ventilator dependency (18) Metabolic encephalopathy (19) Status post placement of implantable loop recorder (20) Hyperlipemia (21) GERD (gastroesophageal reflux disease) (22) Neuropathy (23) S/P transesophageal echocardiogram (TRINA) (24) Right sided weakness ALLAN ALLEN DO Mar 09, 2019 17:09
[2019-03-09] MEDS ORDERED: NICOTINE POLACRILEX 4 MG BC PRN (17:15)
[2019-03-09] MEDS ORDERED: NICOTINE 2 MG GUM (NICORETTE) PO PRN (17:30)
[2019-03-09 17:55] VITALS: BP 118/78
[2019-03-09 18:00] VITALS: BP 118/78
[2019-03-09] MEDS: ENOXAPARIN 40 MG/0.4 ML (LOVENOX) SYR SC SCH (18:13)
[2019-03-09] MEDS: NICOTINE 2 MG GUM (NICORETTE) BC PRN (19:37)
[2019-03-09] MEDS: SENNA W/DOCUSATE (SENOKOT S) TABLET PO SCH (19:40)
[2019-03-09] MEDS: POLYETHYLENE GLYCOL 17 GM (MIRALAX) PACK PO SCH (19:40)
[2019-03-09] MEDS: DOCUSATE SODIUM 100 MG (COLACE) CAP PO SCH (19:40)
[2019-03-09] MEDS: LEVETIRACETAM 500 MG (KEPPRA) TAB PO SCH (20:32)
[2019-03-09] MEDS: GABAPENTIN 400 MG (NEURONTIN) CAP PO SCH (20:32)
[2019-03-09] MEDS ORDERED: NON-FORMULARY MEDICATION 1 EA EA (Insulin Glargine,Hum.rec.anlog (Lantus Solostar) 30 UNIT SQ SCH (21:00)
[2019-03-09] MEDS ORDERED: NON-FORMULARY MEDICATION 1 EA EA (Gabapentin 800 MG) PO SCH (21:00)
[2019-03-09] MEDS: traZODone 100 MG (DESYREL) TAB PO PRN (22:17)
[2019-03-10 05:41] VITALS: BP 134/85
[2019-03-10 05:51] LABS: BASOPHILS % (AUTO) 0 % (0-10); EOSINOPHILS # (AUTO) 0.3 10^3/uL (0.0-0.3); EOSINOPHILS % (AUTO) 4 % (0-10); HEMATOCRIT 40 % (40-54); HEMOGLOBIN 13.6 G/DL (13.3-17.7); LYMPHOCYTES # (AUTO) 2.1 X 10^3 (1.0-4.0); LYMPHOCYTES % (AUTO) 31 % (12-44); MEAN CORPUSCULAR HEMOGLOBIN 31 PG (25-34); MEAN CORPUSCULAR HGB CONC 34 G/DL (32-36); MEAN CORPUSCULAR VOLUME 91 FL (80-99); MEAN PLATELET VOLUME 9.5 FL (7.4-10.4); MONOCYTES # (AUTO) 0.8 X 10^3 (0.0-1.0); MONOCYTES % (AUTO) 11 % (0-12); NEUTROPHILS # (AUTO) 3.7 X 10^3 (1.8-7.8); NEUTROPHILS % (AUTO) 54 % (42-75); PLATELET COUNT 278 10^3/uL (130-400); RED CELL DISTRIBUTION WIDTH 12.3 % (10.0-14.5); WHITE BLOOD COUNT 6.9 10^3/uL (4.3-11.0)
[2019-03-10] MEDS ORDERED: NON-FORMULARY MEDICATION 1 EA EA (Insulin Aspart (Novolog Flexpen) 12 UNITS) SQ SCH (06:00)
[2019-03-10 06:26] LABS: ALANINE AMINOTRANSFERASE 91 U/L (0-55); ALBUMIN 3.3 GM/DL (3.2-4.5); ALKALINE PHOSPHATASE 69 U/L (40-136); BILIRUBIN,TOTAL 0.3 MG/DL (0.1-1.0); BUN/CREATININE RATIO 13; CALCIUM 8.9 MG/DL (8.5-10.1); CARBON DIOXIDE 25 MMOL/L (21-32); CHLORIDE 103 MMOL/L (98-107); CREATININE SERUM 1.02 MG/DL (0.60-1.30); GFR ESTIMATED > 60; GLUCOSE 224 MG/DL (70-105); POTASSIUM 3.9 MMOL/L (3.6-5.0); SODIUM 140 MMOL/L (135-145); TOTAL PROTEIN 6.6 GM/DL (6.4-8.2)
[2019-03-10] MEDS: inSUlin ASPART (NovoLOG) 1 UNIT/0.01 ML (CHARGE PER UNIT) SC SCH ×3 (06:43→17:34)
[2019-03-10] MEDS ORDERED: ALPR0.5T7 PO (08:39)
[2019-03-10] MEDS ORDERED: TRM50T PO (08:39)
[2019-03-10] MEDS ORDERED: MELO15TA39 PO (08:39)
--- NOTE | 2019-03-10 08:45 | PM&R Progress Note ---
Subjective HPI/CC On Admission Date Seen by Provider: Mar 10, 2019 Time Seen by Provider: 09:00 Subjective/Events-last exam Dr. Higgins will be seeing him today Nicotine gum and patch maintained Behavioral health will be consulted to help him in compliance with DM Hgb A1c was 16 at [facility] Has no depth perception on the right side Bowels are moving well Noted mild liver enzyme elevated today on labs Conferred with RN Reviewed therapy notes Checked meds and labs Review of Systems General: Fatigue Neurological: Weakness, Numbness, Incoordination, Change in speech Objective Exam Vital Signs Vital Signs Date Time Temp Pulse Resp B/P (MAP) Pulse Ox O2 Delivery O2 Flow Rate FiO2 03/12/19 09:00 Room Air 03/12/19 06:38 36.6 71 20 132/82 (99) 93 Capillary Refill : Less Than 3 Seconds General Appearance: No Apparent Distress, WD/WN, Chronically ill HEENT: Normal ENT Inspection, Pharynx Normal, Other (conjunctival injection left eye) Neck: Full Range of Motion, Normal Inspection, Non Tender, Supple Respiratory: Chest Non Tender, Lungs Clear, Normal Breath Sounds, No Accessory Muscle Use, No Respiratory Distress Cardiovascular: Regular Rate, Rhythm, No Edema, No Gallop, No JVD, No Murmur, Normal Peripheral Pulses Gastrointestinal: Normal Bowel Sounds, No Organomegaly, No Pulsatile Mass, Non Tender, Soft Back: Normal Inspection, No CVA Tenderness, No Vertebral Tenderness Extremity: Normal Capillary Refill, Normal Inspection, Normal Range of Motion, Non Tender, No Calf Tenderness Neurologic/Psychiatric: Alert, Oriented x3, No Motor/Sensory Deficits (except right sided weakness), Normal Mood/Affect, carport erector II-XII Norm as Tested, Motor Weakness (right sided) Results/Procedures Lab Patient resulted labs reviewed. FIM Transfers Therapy Code Descriptions/Definitions Functional [place] Measure: 0=Not Assessed/NA 4=Minimal Assistance 1=Total Assistance 5=Supervision or Setup 2=Maximal Assistance 6=Modified [place] 3=Moderate Assistance 7=Complete IndependenceSCALE: Activities may be completed with or without assistive devices. 8-Fleuvuooud-yofvsey completes the activity by him/herself with no assistance from a helper. 5-Set-up or Clean-up Assistance-helper sets up or cleans up; patient completes activity. [place] assists only prior to or following the activity. 4-Supervision or Touching Assistance-helper provides verbal cues and/or touching/steadying and/or contact guard assistance as patient completes activity. Assistance may be provided throughout the activity or intermittently. 3-Partial/Moderate Assistance-helper does LESS THAN HALF the effort. [place] lifts, holds or supports trunk or limbs, but provides less than half the effort. 2-Substantial/Maximal Assistance-helper does MORE THAN HALF the effort. [place] lifts or holds trunk or limbs and provides more than half the effort. 8-Nyioxbutk-xikgwv does ALL the effort. Patient does none of the effort to complete the activity. Or, the assistance of 2 or more helpers is required for the patient to complete the activity. If activity was not attempted, code reason: 7-Patient Refused. 9-Not Applicable-not attempted and the patient did not perform the activity before the current illness, exacerbation or injury. 10-Not Attempted due to Environmental Limitations-(lack of equipment, weather restraints, etc.). 88-Not Attempted due to Medical Conditions or Safety Concerns. Assessment/Plan Assessment and Plan Assess & Plan/Chief Complaint Assessment: Stroke Noncompliance with diabetes Insulin pump noncompliance Hyperlipidemia Left eye scleritis Smoker Plan: Smoking cessation Inpatient rehabilitation protocol Nicotine replacement Stroke meds (1) Cryptogenic stroke (2) Hx of diabetes with ketoacidosis (3) Hemianopia of right eye (4) Occipital stroke (5) Metabolic acidosis (6) Poorly controlled type 1 diabetes mellitus (7) Seizure disorder (8) Diabetic retinopathy (9) Renal stones (10) Gout (11) Arthritis (12) Smoker (13) Marijuana use (14) Scleritis (15) Depression (16) Hx of respiratory failure (17) History of ventilator dependency (18) Metabolic encephalopathy (19) Status post placement of implantable loop recorder (20) Hyperlipemia (21) GERD (gastroesophageal reflux disease) (22) Neuropathy (23) S/P transesophageal echocardiogram (TRINA) (24) Right sided weakness ALLAN ALLEN DO Mar 10, 2019 08:45
[2019-03-10] MEDS ORDERED: OMEPRAZOLE 20 MG (PriLOSEC) CAP NON-FORMULARY PO SCH (09:00)
[2019-03-10] MEDS ORDERED: NON-FORMULARY MEDICATION 1 EA EA (Citalopram Hydrobromide (Celexa) 40 MG) PO SCH (09:00)
[2019-03-10] MEDS: LEVETIRACETAM 500 MG (KEPPRA) TAB PO SCH ×2 (09:24→20:05)
[2019-03-10] MEDS: PANTOPRAZOLE 20 MG TABLET (PROTONIX) PO SCH (09:24)
[2019-03-10] MEDS: ASPIRIN E.C. 81 MG (ECOTRIN) TAB PO SCH (09:24)
[2019-03-10] MEDS: NICOTINE 21 MG (NICODERM) PATCH TD SCH (09:25)
[2019-03-10] MEDS: SENNA W/DOCUSATE (SENOKOT S) TABLET PO SCH ×2 (09:25→20:08)
[2019-03-10] MEDS: GABAPENTIN 400 MG (NEURONTIN) CAP PO SCH ×3 (09:25→20:05)
[2019-03-10] MEDS: NICOTINE 2 MG GUM (NICORETTE) BC PRN ×3 (09:30→21:27)
[2019-03-10] MEDS: NICOTINE PATCH REMOVAL TP SCH (09:36)
[2019-03-10] MEDS: DOCUSATE SODIUM 100 MG (COLACE) CAP PO SCH ×2 (09:36→19:32)
[2019-03-10] MEDS: POLYETHYLENE GLYCOL 17 GM (MIRALAX) PACK PO SCH ×2 (09:36→19:32)
--- NOTE | 2019-03-10 10:16 | NUR ---
Pt states that he plans on stopping smoking, & becoming compliant w his diabetes meds. Pt states that, "last summer, I just got frustrated w it all, & stopped wearing my Insulin pump. I got tired of the hassle of it. I knew I shouldn't. but, I did." "I know I've got to get w the program now. I was lsia this time." Spoke w pt re: this. Pt states that he has seen Rosario Raya, Environmental Aide, when she has come to [place], & that she has been helpful.
--- NOTE | 2019-03-10 10:22 | Physical Therapy Evaluation ---
PT Evaluation-General Medical Diagnosis Admission Date Mar 09, 2019 at 17:00 Medical Diagnosis: CVA Onset Date: Mar 02, 2019 Therapy Diagnosis Therapy Diagnosis: impaired mobility, strength, endurance, balance Height/Weight Height (Feet): 5 Height (Inches): 10.00 Weight (Pounds): 185 Weight (Ounces): 2.0 Precautions Precautions/Isolations: Fall Prevention, Standard Precautions Referral Physician: Ayesha Richard DO Reason for Referral: Evaluation/Treatment Medical History Additional Medical History Past Medical History Surgeries: Abdominal, Adenoidectomy, Appendectomy, Tonsillectomy Currently Using CPAP: No Currently Using BIPAP: No Neurological: Neuropathy, Stroke (03/02/19) Genitourinary: Kidney Stones Gastrointestinal: Pancreatitis Musculoskeletal: Arthritis Endocrine: Diabetes, Insulin dep Loss of Vision: Denies Hearing Impairment: Hard of Hearing Psychosocial: Sleep Difficulties, Anxiety, Depression History of Blood Disorders: No Social History Home: Single Level Current Living Status: Spouse Entry Into Home: Stairs Without Railing PT Steps Into Home: 3 Prior Prior Level of Function SCALE: Activities may be completed with or without assistive devices. 9-Lfodhovzet-bxnsoyh completes the activity by him/herself with no assistance from a helper. 5-Set-up or Clean-up Assistance-helper sets up or cleans up; patient completes activity. [place] assists only prior to or following the activity. 4-Supervision or Touching Assistance-helper provides verbal cues and/or touching/steadying and/or contact guard assistance as patient completes activity. Assistance may be provided throughout the activity or intermittently. 3-Partial/Moderate Assistance-helper does LESS THAN HALF the effort. [place] lifts, holds or supports trunk or limbs, but provides less than half the effort. 2-Substantial/Maximal Assistance-helper does MORE THAN HALF the effort. [place] lifts or holds trunk or limbs and provides more than half the effort. 5-Decmyxhyb-dhxyiu does ALL the effort. Patient does none of the effort to complete the activity. Or, the assistance of 2 or more helpers is required for the patient to complete the activity. If activity was not attempted, code reason: 7-Patient Refused. 9-Not Applicable-not attempted and the patient did not perform the activity before the current illness, exacerbation or injury. 10-Not Attempted due to Environmental Limitations-(lack of equipment, weather restraints, etc.). 88-Not Attempted due to Medical Conditions or Safety Concerns. Bed Mobility: 6 Transfers (B,C,W/C): 6 Gait: 6 Stairs: 6 Indoor Mobility (Ambulation): Independent Stairs: Independent PT Evaluation-Current Subjective Patient in bed pre tx, agrees to PT, has no complaints of pain at rest except for some soreness on his bottom he says from laying in bed. Pt/Family Goals to be independent at home Objective Patient Orientation: Person, Place, Situation ROM/Strength ROM Lower Extremities WNL Strength Lower Extremities right lower extremity (hip flexion 3-/5, knee flexion 4-/5, knee extension 4-/5, dorsiflexion 3/5), left lower extremity (hip flexion 4/5, knee flexion 4/5, knee extension 4/5, dorsiflexion 4/5) Neuromuscular (Tone, Coordination, Reflexes) Patient has impaired visual tracking on the right side and impaired peripheral vision on the right. Sensory Vision: Hearing: Functional Sensation Right Lower Extremit: Impaired Sensation Left Lower Extremity: Impaired Sensation Lower Extremities Patient has bilateral neuropathy in LE from about mid-calf down Transfers Roll Left to Right (QC): 6 Sit to Lying (QC): 6 Lying to Sitting/Side of Bed(Q: 6 Sit to Stand (QC): 4 Chair/Wky-bp-Bfdji Xfer(QC): 4 Car Transfer (QC): 4 Patient performs bed mobility with independence, supine <-> sit with independence, sit <-> stand with SBA, transfers with SBA, car transfer with SBA. Occasional unsteadiness but no LOB, fair safety and positioning, patient is not impulsive and seems fairly aware of safety concerns. Gait Does the Patient Walk?: Yes Mode of Locomotion: Walk Anticipated Mode of Locomotion: Walk Walk 10 feet (QC): 4 Walk 50 ft with 2 Turns(QC): 4 Walk 150 ft (QC): 4 Walking 10ft/uneven surface-QC: 4 Distance: 200', 150' Gait Assistive Device: None Comments/Gait Description Patient ambulates 200' without an assistive device with SBA (including 50' with at least 2 turns of 90 degrees but needs CGA going 10' over an uneven surface). Patient has occasional unsteadiness but no LOB, needs cues due to visual deficits on the right side. Wheelchair Training Does the Pt Use a Wheelchair?: No Stairs #of Steps: 4 1 Step (curb) (QC): 4 4 Steps (QC): 4 12 Steps (QC): 88 Patient can go up and down 4 steps using 1 handrail with SBA and cues for foot placement. Patient does a good job listening to directions and complying and trying to go slowly and safely. Balance Sitting Static: Normal Sitting Dynamic: Normal Standing Static: Good Standing Dynamic: Fair Picking up an Object (QC): 4 Treatment Patient performed NuStep level 5 for 15 min. Also performed the Gordon Balance Scale and scored 41/56 indicating a need for an assistive device. Assessment/Needs Patient has impaired mobility, strength, endurance, balance. He is not impulsive but has balance impairments and visual impairments. Patient was compliant with following directions and was not impulsive. Patient in recliner post tx with nurse call, phone, tray, all needs met. Rehab Potential: Fair PT Short Term Goals Short Term Goals Time Frame: Mar 17, 2019 Roll Left & Right: 6 Sit to lyin Lying to sitting on side of be: 6 Sit to stand: 6 Chair/aqr-cw-ytzzz transfer: 5 Walk 10 feet: 5 Walk 50 feet with two turns: 5 Walk 150 feet: 5 Walking 10ft on uneven surface: 4 PT Prison Goals Prison Goals PT Prison Goals Time Frame: Mar 31, 2019 Roll Left & Right (QC): 6 Sit to Lying (QC): 6 Lying-Sitting on Side/Bed(QC): 6 Sit to Stand (QC): 6 Chair/Iyi-cg-Zkxoa Xfer(QC): 6 Toilet Transfer (QC): 6 Car Transfer (QC): 6 Walk 10 feet (QC): 6 Walk 50ft with 2 Turns (QC): 6 Walk 150 ft (QC): 6 Walking 10ft on Uneven Surface: 6 1 Step (curb) (QC): 6 4 Steps (QC): 6 12 Steps (QC): 6 Picking up an Object (QC): 6 PT Plan Problem List Problem List: Activity Tolerance, Functional Strength, Safety, Balance, Gait, Transfer Treatment/Plan Treatment Plan: Continue Plan of Care Treatment Plan: Education, Functional Activity [place], Functional Strength, Thor up Therapy, Gait, Safety, Therapeutic Exercise, Transfers Treatment Duration: Mar 31, 2019 Frequency: At least 5 of 7 days/Wk (IRF) Estimated Hrs Per Day: 1.5 hours per day Patient and/or Family Agrees t: Yes Safety Risks/Education Patient Education: Gait Training, Transfer Techniques, Steps, Correct Positioning, Safety Issues Teaching Recipient: Patient Teaching Methods: Demonstration, Discussion Response to Teaching: Reinforcement Needed Discharge Recommendations Plan Patient will perform bed mobility and transfer training, balance and endurance training, functional strengthening, stair training, gait training, and education, to improve functional mobility and independence at home. Therapy Discharge Recommendati: Other, See Comments (home with family) Time/GCodes Time In: 0800 Time Out: 0900 Total Billed Treatment Time: 60 Total Billed Treatment 1 visit EVM 30' EX 15' FA 15' ISAI PFEIFFER PT Mar 10, 2019 10:22
--- NOTE | 2019-03-10 10:59 | ST Cognitive Linguistic Eval ---
Speech Evaluation-General Medical Diagnosis CVA Onset Date: Mar 02, 2019 Therapy Diagnosis Therapy Diagnosis: Cognitive-Communication, Aphasia Referral Referring Physician: DR. ALLEN Medical History Reviewed History: Yes Social History Current Living Status: Spouse Speech PLF-Current Status Prior Level of Function Patient lived at home with his and 2 children. 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 Patient noted that before his CVA his normal rate of communication was "low and slow", however noted that it is noticeably slower since his accident. Subjective Patient was alert, pleasant, and cooperative for all evaluation tasks. Patient was sitting in his chair eating a snack and engaged in conversation with minimal ease. Patient reported current communication concerns and goals of therapy and wants to return to work. Language Eval: Auditory Comprehends Simple Yes/No Ques: Functional Indent/Objects Multiple Shrestha: Functional Ident/Pics in Multiple Shrestha: Functional Follows 1-Step Commands: Functional Follows Complex Directions: Functional Follows General Conversations: Functional Language Eval: Verbal Language Completes Spontaneous Greeting: Functional Produces Auto, Serial Info: Functional Imitates Simple Words/Phrases: Functional Word Finding: Mild Requests Basic Needs: Functional States Basic Personal Info: Functional Expresses Complex Ideas: Functional Objective Cognitive Domain Attention: Mild Memory: Mild Problem Solving: Mild Executive Functions: WNL Visuospatial Skills: WNL Composite Severity Rating: Mild Clock Drawing Severity Rating: Mild Objective Formal/Standardized Tests Patient was administered the [facility] Mental Status (UMS) ex amination. Results Patient scored 18/30 on the SLUMS which falls within the range of moderate neurocognitive disorder. Oral Motor/Speech Production Within normal limits. Impression Patient arrived to the ARU from s/p CVA/seizure. Patient received ST services while inpatient at that focused on his memory and word finding deficits. Patient scored a 18/30 on the UMS and presents with deficits in cognitive- communication and expressive aphasia. Patient will be receiving speech services that will focus on memory, safety awareness, and expressive language skills. Speech Patient Assess Expression of Ideas/Wants: Exhibits (3) Understanding Verbal Content: Understands (4) Brief Interview-Mental Status: Yes Repetition of Three Words: Three (3) Temporal Orientation: Year: Correct (3) Temporal Orientation: Month: Accurate within 5 days(2) Temporal Orientation: Day: Correct (1) Recall : Wear to say "Sock": Yes, no cue required (2) Recall : Color: No, could not recall (0) Recall : Bed: No, could not recall (0) Memory/Recall Ability: Current season, That he or she is in a hsp/hsp unit Speech Short Term Goals Short Term Goals Short Term Goals 1. Patient will complete memory tasks with 90% or greater accuracy with minimal cues. 2. Patient will complete problem solving tasks with 90% or greater accuracy with minimal cues. 3. Patient will complete safety awareness tasks with 90% or greater accuracy with minimal cues. 4. Patient will complete word finding tasks with 90% or greater accuracy with minimal cues. 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 Additionally, the patient wants to effectively communicate his wants/needs. Treatment Plan Speech Therapy Treatment Plan: Continue Plan of Care Patient will receive skilled ST skills to improve cognitive function. Treatment Duration: Mar 18, 2019 Frequency: 5 times per week Estimated Hrs Per Day: .5 hour per day Rehab Potential: Fair Barriers to Learning: Cognitive deficits due to CVA. Pt/Family Agrees to Plan: Yes Safety Risks/Education Teaching Recipient: Patient Teaching Methods: Demonstration, Discussion Response to Teaching: Verbalize Understanding Education Topics Provided: Communication of wants/needs Time Speech Therapy Time In: 10:00 Speech Therapy Time Out: 10:30 Total Billed Time: 30 Billed Treatment Time 1NUB[address] ST Mar 10, 2019 10:59
--- NOTE | 2019-03-10 10:59 | Physical Therapy Daily Note ---
PT Daily Note-Current Subjective Patient in recliner pre tx, agrees to PT, has no complaints of pain at rest. Appearance Patient in recliner post tx with nurse call, phone, tray, all needs met. Mental Status Patient Orientation: Person, Place, Situation Transfers SCALE: Activities may be completed with or without assistive devices. 1-Twojvnbfns-bfnkvdp completes the activity by him/herself with no assistance from a helper. 5-Set-up or Clean-up Assistance-helper sets up or cleans up; patient completes activity. [place] assists only prior to or following the activity. 4-Supervision or Touching Assistance-helper provides verbal cues and/or touching/steadying and/or contact guard assistance as patient completes activity. Assistance may be provided throughout the activity or intermittently. 3-Partial/Moderate Assistance-helper does LESS THAN HALF the effort. [place] lifts, holds or supports trunk or limbs, but provides less than half the effort. 2-Substantial/Maximal Assistance-helper does MORE THAN HALF the effort. [place] lifts or holds trunk or limbs and provides more than half the effort. 6-Jjpshgpsh-jwoqum does ALL the effort. Patient does none of the effort to complete the activity. Or, the assistance of 2 or more helpers is required for the patient to complete the activity. If activity was not attempted, code reason: 7-Patient Refused. 9-Not Applicable-not attempted and the patient did not perform the activity before the current illness, exacerbation or injury. 10-Not Attempted due to Environmental Limitations-(lack of equipment, weather restraints, etc.). 88-Not Attempted due to Medical Conditions or Safety Concerns. Sit to Stand (QC): 4 Chair/Gqr-nv-Jlsej Xfer(QC): 4 SBA Gait Training Distance: 1200' Walk 10 feet (QC): 4 Walk 50 ft with 2 Turns(QC): 4 Walk 150 ft (QC): 4 Gait Assistive Device: None SBA, slow but steady, occasional cues for direction, peripheral vision seems improved this session Exercises LAQ right side for 5 min with 2# ankle weight Treatments ambulation, transfers, LE exercise Assessment Current Status: Fair Progress improved ambulation and balance, no unsteadiness PT Short Term Goals Short Term Goals Time Frame: Mar 17, 2019 Roll Left & Right: 6 Sit to lyin Lying to sitting on side of be: 6 Sit to stand: 6 Chair/ecg-ca-oyltr transfer: 5 Walk 10 feet: 5 Walk 50 feet with two turns: 5 Walk 150 feet: 5 Walking 10ft on uneven surface: 4 PT Care Home Goals Care Home Goals PT Care Home Goals Time Frame: Mar 31, 2019 Roll Left & Right (QC): 6 Sit to Lying (QC): 6 Lying-Sitting on Side/Bed(QC): 6 Sit to Stand (QC): 6 Chair/Srb-qg-Hvydj Xfer(QC): 6 Toilet Transfer (QC): 6 Car Transfer (QC): 6 Walk 10 feet (QC): 6 Walk 50ft with 2 Turns (QC): 6 Walk 150 ft (QC): 6 Walking 10ft on Uneven Surface: 6 1 Step (curb) (QC): 6 4 Steps (QC): 6 12 Steps (QC): 6 Picking up an Object (QC): 6 PT Plan Problem List Problem List: Activity Tolerance, Functional Strength, Safety, Balance, Gait, Transfer Treatment/Plan Treatment Plan: Continue Plan of Care Treatment Plan: Education, Functional Activity Marino, Functional Strength, Group Therapy, Gait, Safety, Therapeutic Exercise, Transfers Treatment Duration: Mar 31, 2019 Frequency: At least 5 of 7 days/Wk (IRF) Estimated Hrs Per Day: 1.5 hours per day Patient and/or Family Agrees t: Yes Safety Risks/Education Patient Education: Gait Training, Transfer Techniques, Correct Positioning, Safety Issues Teaching Recipient: Patient Teaching Methods: Demonstration, Discussion Response to Teaching: Reinforcement Needed Time/GCodes Time In: 1030 Time Out: 1100 Total Billed Treatment Time: 30 Total Billed Treatment 1 visit GT 30' ISAI PFEIFFER PT Mar 10, 2019 10:59
--- NOTE | 2019-03-10 12:06 | Occupational Therapy Eval ---
OT Evaluation-General/PLF Medical Diagnosis Admission Date Mar 09, 2019 at 17:00 Medical Diagnosis: CVA Onset Date: Mar 02, 2019 Therapy Diagnosis Therapy Diagnosis: Weakness Height/Weight Height (Feet): 5 Height (Inches): 10.00 Weight (Pounds): 185 Weight (Ounces): 2.0 Precautions Precautions/Isolations: Fall Prevention, Standard Precautions Safety Interventions: None Weight Bear Status Weight Bearing Restriction: Weight Bearing/Tolerated Referral Physician: Ayesha Richard DO Referral Reason: Activity Tolerance, Self Care, Evaluation/Treatment, Strengthening/ROM Medical History Pertinent Medical History: Arthritis, DM Additional Medical History Depression, anxiety, gout, pancreatitis Current History Pt. states that he had a migraine for approximately 5 days. Does not remember very much after that. States that his found him having a seizure, and then he became aggressive with ambulance crew. Does not remember the next two days. Reviewed History: Yes Social History Home: Single Level Current Living Status: Entry Into Home: Stairs Without Railing Steps Into Home: 3 Pt. lives with spouse and 15, 17 year olds. They are home schooled and at home during the day. ADL-Prior Level of Function SCALE: Activities may be completed with or without assistive devices. 8-Batawpjuxd-gweuosm completes the activity by him/herself with no assistance from a helper. 5-Set-up or Clean-up Assistance-helper sets up or cleans up; patient completes activity. [place] assists only prior to or following the activity. 4-Supervision or Touching Assistance-helper provides verbal cues and/or touching/steadying and/or contact guard assistance as patient completes activity. Assistance may be provided throughout the activity or intermittently. 3-Partial/Moderate Assistance-helper does LESS THAN HALF the effort. [place] lifts, holds or supports trunk or limbs, but provides less than half the effort. 2-Substantial/Maximal Assistance-helper does MORE THAN HALF the effort. [place] lifts or holds trunk or limbs and provides more than half the effort. 4-Kvtkcyphy-gyyaqu does ALL the effort. Patient does none of the effort to complete the activity. Or, the assistance of 2 or more helpers is required for the patient to complete the activity. If activity was not attempted, code reason: 7-Patient Refused. 9-Not Applicable-not attempted and the patient did not perform the activity before the current illness, exacerbation or injury. 10-Not Attempted due to Environmental Limitations-(lack of equipment, weather restraints, etc.). 88-Not Attempted due to Medical Conditions or Safety Concerns. ADL PLOF Comments Pt. was independent with daily tasks. Works, rides horses, drives. 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 Pt. and OT talked in depth regarding what pt feels his current deficits are, if any. Pt. states that he has difficulty "getting words out" sometimes. Also states that he moves very slow now. Reports visual loss on right side peripherally, and weakness in right UE. Appearance Pt. sitting up in chair. Alert and oriented. Mental Status/Objective Patient Orientation: Person, Place, Time, Situation No expressive deficits noted during conversation. Current Hand Dominance: Right Upper Extremity ROM Pt. is able to raise bilateral shoulders to approximately 90 degrees due to previous injuries. All other motions WFL. Upper Extremity Sensation Reported intact Upper Extremity Strength Right- 3+/5 distally Left- 5/5 distally ADL-Treatment Eating (QC): 6 Oral Hygiene (QC): 5 (Set up) Shower/Bathe Self (QC): 4 (SBA) Upper Body Dressing (QC): 4 Lower Body Dressing (QC): 4 On/Off Footwear (QC): 4 Toileting Hygiene (QC): 4 Education OT Patient Education: Correct positioning, Modified ADL techniques, Progress toward Goal/Update tx plan, Purpose of tx/functional activities, Reviewed precautions, Rehab process, Transfer techniques Teaching Recipient: Patient Teaching Methods: Demonstration, Discussion Response to Teaching: Verbalize Understanding, Return Demonstration OT [facility] Goals [facility] Goals Time Frame: Mar 17, 2019 Eating (QC): 6 Oral Hygiene (QC): 6 Toileting Hygiene (QC): 6 Shower/Bathe Self (QC): 6 Upper Body Dressing (QC): 6 Lower Body Dressing (QC): 6 On/Off Footwear (QC): 6 Additional Goals: 1-Demonstrate ADL Tasks, 2-Verbalize Understanding, 3- ImproveStrength/Marino 1=Demonstrate adherence to instructed precautions during ADL tasks. 2=Patient will verbalize/demonstrate understanding of assistive devices/modifications for ADL. 3=Patient will improve strength/tolerance for activity to enable patient to perform ADL's. OT Education/Plan Problem List/Assessment Assessment: Decreased Activ Tolerance, Decreased UE Strength, Impaired I ADL's, Impaired Self-Care Skills Discharge Recommendations Plan/Recommendations: Continue POC Therapy Discharge Recommendati: Home & Family, Post Acute OT Treatment Plan/Plan of Care Treatment,Training & Education: Yes Patient would benefit from OT for education, treatment and training to promote independence in ADL's, mobility, safety and/or upper extremity function for ADL's. Plan of Care: ADL Retraining, Functional Mobility, Group Exercise/Act as Ind, U E Funct Exercise/Act Treatment Duration: Mar 17, 2019 Frequency: At least 5 of 7 days/Wk (IRF) Estimated Hrs Per Day: 1.5 hours per day Agreement: Yes Rehab Potential: Good Time/GCodes Start Time: 11:00 Stop Time: 12:00 Total Time Billed (hr/min): 60 Billed Treatment Time 1, EVL x 15minutes, ADL x 45minutes LESLY GRAY OT Mar 10, 2019 12:06
--- NOTE | 2019-03-10 13:21 | NUR ---
SS/CM INITIAL ASSESSMENT Patient was admitted to ARU 03/09/19 from [facility] for CVA. He presented to [facility] ED 03/02/19 and diagnosed with subacute CVA, intubated, and transported to via air. History of comorbidities including IDDM poorly controlled, seizure disorder, diabetic retinopathy, implantable loop recorder, neuropathy. He had been using a diabetic pump but self-discontinued in summer. Lengthy history of weekly outpatient woundcare visits for foot/toe infection with successful conclusion per patient. Patient was IADL prior to CVA. He resided at home with his spouse, Jojo Callahan, and their son age 14 and daughter age 17. 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 DME: Has crutches, no other DME at this time. PCP: [facility] in [facility]. He has also met with [facility] RN/Rosario Raya regarding diabetic education. Patient intends to continue services through [facility] upon discharge. PHARMACY: [facility] through [facility]. ADVANCED DIRECTIVE: None established./ INSURED: TAM through his spouse's work at [employer] in [facility]. Patient indicates his has resigned as DON there and he believes she may be starting employment with [employer]. Discussed COBRA or at least exploring insurance coverage so that he does not have a gap in service while hospitalized. Purpose of the Weekly Team Conference was discussed, patient is hopeful to return home as soon medically stable to do so. CONTACTS: Jojo Callahan, Spouse [phone] Nader Callahan, Brother [phone] Continue intermittent review of progress as it pertains to post hospital care planning.
--- NOTE | 2019-03-10 13:50 | NUR ---
RD ASSESSMENT PMHx: T1DM; pancreatitis; stroke; hx of non-compliance PT INTERACTION: Pt was awake and pleasant during consult for DM education. Pt states current appetite is good and has been for some time. Pt states following a regular diet at home and has no issues with chewing/swallowing food. Note upon visual exam, pt appears to have poor dentition. Pt states no recent issues with n/v/c/d at this time. Note last BM was 03/09 and pt is currently on bowel regimen of colace BID; miralax BID; senna BID, per chart review. Pt states recent 45# wt loss, which he attributes to his poor control of T1DM. Note unable to determine recent wt hx, per chart review. Pt states hx of non-compliance in DM care, including not using insulin pump. ABNORMAL NUTRITION-RELATED LAB VALUES LOW: HIGH: glu 224; AST 68; ALT 91 Est. kcal needs: 3411-8622 kcal | 20-25 kcal/kg Est. Pro needs: 65-81 g Pro | 0.8-1.0 g Pro/kg PES STATEMENT: Food- and nutrition-related knowledge deficit (NB-1.1) related to Unwilling/disinterested in learning/applying information as evidenced by pt interview | hx of non-compliance INTERVENTION: Continue with current diet order of CHO 75g/m 3snack diet. Discussed and provided handout on CHO Counting and its relationship to blood glucose control. Pt verbalized previous understaning of this information and stated he "knew the information, but didn't use it." Pt appeared confident to apply information in handout in choosing meals that align with consistent CHO diet. Will continue to follow and reassess as pt needs and status change. MONITOR/EVALUATE: PO Intake; Plan of Care; Hydration Status; Weight Status; Lab Values Juliet Hernandez, MS, RD, LD
--- NOTE | 2019-03-10 14:27 | Occupational Ther Daily Note ---
OT Current Status-Daily Note Subjective Pt alert, sitting in recliner. Pt agrees to therapy. No c/o pain. Pt states he wants to work hard to get home. Mental Status/Objective Patient Orientation: Person, Place, Time, Situation ADL-Treatment Therapy Code Descriptions/Definitions Functional [place] Measure: 0=Not Assessed/NA 4=Minimal Assistance 1=Total Assistance 5=Supervision or Setup 2=Maximal Assistance 6=Modified [place] 3=Moderate Assistance 7=Complete IndependenceSCALE: Activities may be completed with or without assistive devices. 7-Wujuedjmzf-oefppjj completes the activity by him/herself with no assistance from a helper. 5-Set-up or Clean-up Assistance-helper sets up or cleans up; patient completes activity. [place] assists only prior to or following the activity. 4-Supervision or Touching Assistance-helper provides verbal cues and/or touching/steadying and/or contact guard assistance as patient completes activity. Assistance may be provided throughout the activity or intermittently. 3-Partial/Moderate Assistance-helper does LESS THAN HALF the effort. [place] lifts, holds or supports trunk or limbs, but provides less than half the effort. 2-Substantial/Maximal Assistance-helper does MORE THAN HALF the effort. [place] lifts or holds trunk or limbs and provides more than half the effort. 4-Ohpmxwymf-puwsei does ALL the effort. Patient does none of the effort to complete the activity. Or, the assistance of 2 or more helpers is required for the patient to complete the activity. If activity was not attempted, code reason: 7-Patient Refused. 9-Not Applicable-not attempted and the patient did not perform the activity before the current illness, exacerbation or injury. 10-Not Attempted due to Environmental Limitations-(lack of equipment, weather restraints, etc.). 88-Not Attempted due to Medical Conditions or Safety Concerns. Other Treatment Pt ambulated to therapy gym without AD. Completed arm bike at [address] esistance with B UE for 8 min, R UE at 15 espinosa resistance for 3 min, L UE at 15 espinosa resistance for 3 min, B UE backward rotation for 2 min. Nut/bolt task to improve fine motor coordination and dexterity with strengthening for daily functional tasks. Pt given heavy resistance therapy sponge for use in room to increase casino host/pinch strength. After therapy, pt sitting in room with call light/phone in reach. All needs met in room. OT Jail Goals Devulcanizer Loader Goals Time Frame: Mar 17, 2019 Eating (QC): 6 Oral Hygiene (QC): 6 Toileting Hygiene (QC): 6 Shower/Bathe Self (QC): 6 Upper Body Dressing (QC): 6 Lower Body Dressing (QC): 6 On/Off Footwear (QC): 6 Additional Goals: 1-Demonstrate ADL Tasks, 2-Verbalize Understanding, 3- ImproveStrength/Marino 1=Demonstrate adherence to instructed precautions during ADL tasks. 2=Patient will verbalize/demonstrate understanding of assistive devices/modifications for ADL. 3=Patient will improve strength/tolerance for activity to enable patient to perform ADL's. OT Education/Plan Problem List/Assessment Assessment: Decreased UE Strength, Restricted Funct UE ROM, Visual-Perceptual Deficit Discharge Recommendations Plan/Recommendations: Continue POC Treatment Plan/Plan of Care Patient would benefit from OT for education, treatment and training to promote independence in ADL's, mobility, safety and/or upper extremity function for ADL's. Plan of Care: ADL Retraining, Functional Mobility, Group Exercise/Act as Ind, UE Funct Exercise/Act Treatment Duration: Mar 17, 2019 Frequency: At least 5 of 7 days/Wk (IRF) Estimated Hrs Per Day: 1.5 hours per day Agreement: Yes Rehab Potential: Good Time/GCodes Start Time: 13:45 Stop Time: 14:15 Total Time Billed (hr/min): 30 Billed Treatment Time 1 visit-EX 2 (30 min) PEDRO BILLS Mar 10, 2019 14:27
[2019-03-10 15:56] VITALS: BP 116/77
[2019-03-10] MEDS: ENOXAPARIN 40 MG/0.4 ML (LOVENOX) SYR SC SCH (17:33)
[2019-03-10] MEDS: MELATONIN 3 MG TABLET PO PRN (21:26)
[2019-03-10] MEDS: traZODone 100 MG (DESYREL) TAB PO PRN (21:26)
[2019-03-10] MEDS: ALPRAZolam 0.25 MG (XANAX) TAB PO PRN (21:26)
[2019-03-11 05:30] VITALS: BP 128/85
[2019-03-11] MEDS: inSUlin ASPART (NovoLOG) 1 UNIT/0.01 ML (CHARGE PER UNIT) SC SCH ×3 (06:37→17:52)
--- NOTE | 2019-03-11 07:56 | Behavioral Health Consult ---
Consult- Consult Date Seen by Provider: Mar 10, 2019 Time Seen by Provider: 13:06 Date: 03/10/19 CPT Code: 00420 Psychodiagnostic Examination, 1 unit(s) Start Time: 1:06 pm Stop Time: 1:40 pm Chief Complaint: depression and anxiety Referral: Je Callahan is a 43-year-old, , male referred by Dr. Richard for a clinical diagnostic assessment. Information for this evaluation was gathered from self-report and medical records. Presenting Problem: The presenting clinical problem is depression and anxiety. He reported he is frustrated and anxious some. He stated he does not remember all that happened and is still struggling some with confusion. He reported his eye sight and confusion are his biggest concerns. He stated he has struggled with depression and anxiety in the past. He reported the Celexa really helps with his symptoms and the Trazadone helps with sleep. He stated he is having a hard time falling asleep because he is worrying a lot at night. He reported tonight he is hoping he can also take Xanax to help him sleep. He stated at home he only uses the Xanax as needed and can go stretches of weeks without it. He reported sometimes he can identify what has triggered his anxiety but other times he does not know why he is anxious. He stated he likes to be outdoors, so it has been hard for him to be inside so much. He did not appear to have any significant memory issues. He reported sometimes in his mind he struggles with the order of words, so he does not say them. He reported he knows he has not done well in managing his health and plans to do better. He stated he is going to meet with the conservation educator and get set back up with his insulin pump. Overall symptoms observed or reported requiring current level of care include anergia, anxiety, attention/concentration deficits, depressed mood, irritability, medical problems, memory problems, sleep disturbance (onset delay/easily awakened), and worry. Observations/Mental Status: Je was sitting in a chair when therapist arrived. Overall appearance was unremarkable clinically. Je appeared to be an adequate historian. Observed gait and gross motor movements indicated no clinically significant difficulties. Amina general approach to the evaluation was cooperative. Orientation was intact for person, place, time, and situation. Je evidenced good understanding of the reason for the appointment. Amina in- session behavior was cooperative. The predominant mood was anxious with affect appropriate to expressed concerns and presenting problem. Immediate attention and concentration was grossly intact. Memory functioning appeared to be intact. Level of intellectual functioning compared to same age peers was estimated to be in the average range. Thought processes were found to be mostly generally log ical, coherent and goal directed; occasionally incomplete ideas . Thought content appeared normal. There was no report or evidence of hallucinations or delusions. Psychomotor functioning was within normal limits. Tone of voice was normal and controlled. Expressive speech was marked by fluent speech and language. Eye contact was fair. Insight was average. Overall, style of interacti ng during the appointment was appropriate and motivated. Current/Previous Mental Health Treatment: Past psychiatric history was reported as has seen Erick Coelho [facility] in the past for outpatient psychotherapy. History of self or other harm: none reported. Medical History: Medical conditions were reported as Diabetes, seizure disorder, CVA, neuropathy, and diabetic retinopathy. Drug allergies: none reported. Current physician is Carmelita Avila at [facility]. 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 Family and Social Histories: Je currently lives with his , 17-year-old daughter, and 14-year-old son in [place], [place]. He talked about his kids and their accomplishments. Hobbies and recreational activities include: fishing and horse riding. Strengths/Weaknesses: Strengths/Resources: insightful, motivated for change, and supportive family Liabilities/Barriers: health problems Summary of Assessment Information/Recommendations: Je is a 43-year-old male with history of anxiety and depression and poor management of his health. He appears to have good insight into his situation and at this point is willing to get help. He may need reminders of the importance of following through with recommendations as he wants to get done with situations quickly. Following current assessment, presenting problem and symptoms appear consistent with a preliminary diagnosis of F41.1 Generalized Anxiety Disorder and F33.1 Major Depressive Disorder, Recurrent, Moderate. Current emotional symptoms are of moderate intensity. Overall, prognosis is estimated to be good. 1.It is recommended that Je receive outpatient psychotherapy to address his anxiety and depression. He was agreeable to this and reported he would like to see Erick Coelho [facility] in [place] who he previously saw. 2.He does not appear to need any adjustments to his psychotropic medication currently. ICD-10 Diagnostic Impressions: F41.1 Generalized Anxiety Disorder F33.1 Major Depressive Disorder, Recurrent, Moderate CAITLYN VERA Mar 11, 2019 07:56
[2019-03-11] MEDS: NICOTINE PATCH REMOVAL TP SCH (08:50)
[2019-03-11] MEDS: NICOTINE 21 MG (NICODERM) PATCH TD SCH (08:50)
--- NOTE | 2019-03-11 08:50 | Physical Therapy Daily Note ---
PT Daily Note-Current Subjective Patient in bed pre tx, agrees to PT, has a headache and nurse was notified and she was getting him pain meds. Appearance Patient in recliner post tx with nurse call,phone, tray, all needs met. Mental Status Patient Orientation: Person, Place, Situation Transfers SCALE: Activities may be completed with or without assistive devices. 5-Ozyqavkhsb-dsvdqtr completes the activity by him/herself with no assistance from a helper. 5-Set-up or Clean-up Assistance-helper sets up or cleans up; patient completes activity. [place] assists only prior to or following the activity. 4-Supervision or Touching Assistance-helper provides verbal cues and/or touching/steadying and/or contact guard assistance as patient completes activity. Assistance may be provided throughout the activity or intermittently. 3-Partial/Moderate Assistance-helper does LESS THAN HALF the effort. [place] lifts, holds or supports trunk or limbs, but provides less than half the effort. 2-Substantial/Maximal Assistance-helper does MORE THAN HALF the effort. [place] lifts or holds trunk or limbs and provides more than half the effort. 6-Knmecrkjo-mdyoma does ALL the effort. Patient does none of the effort to complete the activity. Or, the assistance of 2 or more helpers is required for the patient to complete the activity. If activity was not attempted, code reason: 7-Patient Refused. 9-Not Applicable-not attempted and the patient did not perform the activity before the current illness, exacerbation or injury. 10-Not Attempted due to Environmental Limitations-(lack of equipment, weather restraints, etc.). 88-Not Attempted due to Medical Conditions or Safety Concerns. Roll Left & Right (QC): 6 Sit to Lying (QC): 6 Lying to Sitting/Side of Bed(Q: 6 Sit to Stand (QC): 6 Chair/Czs-je-Pgtnf Xfer(QC): 4 Gait Training Distance: 1000, 150' Walk 10 feet (QC): 4 Walk 50 ft with 2 Turns(QC): 4 Walk 150 ft (QC): 4 Gait Assistive Device: None slow but steady ambulation Exercises Seated Therapy Exercises: Ankle pumps, Long arc quads, Hip flexion Seated Reps: 20 step onto and over small step on the floor x6, cone activity involving turning and walking NuStep Minutes: 15 NuStep Workload: 5 Treatments LE exercise, balance activity, gait training Assessment Current Status: Fair Progress patient fatigues fairly easily, occasional rest break PT Short Term Goals Short Term Goals Time Frame: Mar 17, 2019 Roll Left & Right: 6 Sit to lyin Lying to sitting on side of be: 6 Sit to stand: 6 Chair/qsn-ek-pyjoc transfer: 5 Walk 10 feet: 5 Walk 50 feet with two turns: 5 Walk 150 feet: 5 Walking 10ft on uneven surface: 4 PT Usp Goals Usp Goals PT Usp Goals Time Frame: Mar 31, 2019 Roll Left & Right (QC): 6 Sit to Lying (QC): 6 Lying-Sitting on Side/Bed(QC): 6 Sit to Stand (QC): 6 Chair/Yqo-ah-Vijbz Xfer(QC): 6 Toilet Transfer (QC): 6 Car Transfer (QC): 6 Walk 10 feet (QC): 6 Walk 50ft with 2 Turns (QC): 6 Walk 150 ft (QC): 6 Walking 10ft on Uneven Surface: 6 1 Step (curb) (QC): 6 4 Steps (QC): 6 12 Steps (QC): 6 Picking up an Object (QC): 6 PT Plan Problem List Problem List: Activity Tolerance, Functional Strength, Safety, Balance, Gait, Transfer Treatment/Plan Treatment Plan: Continue Plan of Care Treatment Plan: Education, Functional Activity Marino, Functional Strength, Group Therapy, Gait, Safety, Therapeutic Exercise, Transfers Treatment Duration: Mar 31, 2019 Frequency: At least 5 of 7 days/Wk (IRF) Estimated Hrs Per Day: 1.5 hours per day Patient and/or Family Agrees t: Yes Safety Risks/Education Patient Education: Gait Training, Transfer Techniques, Correct Positioning, S afety Issues Teaching Recipient: Patient Teaching Methods: Demonstration, Discussion Response to Teaching: Reinforcement Needed Time/GCodes Time In: 0800 Time Out: 0900 Total Billed Treatment Time: 60 Total Billed Treatment 1 visit EX 35', GT 25' ISAI PFEIFFER PT Mar 11, 2019 08:50
[2019-03-11] MEDS: ASPIRIN E.C. 81 MG (ECOTRIN) TAB PO SCH (08:51)
[2019-03-11] MEDS: LEVETIRACETAM 500 MG (KEPPRA) TAB PO SCH ×2 (08:51→20:55)
[2019-03-11] MEDS: PANTOPRAZOLE 20 MG TABLET (PROTONIX) PO SCH (08:51)
[2019-03-11] MEDS: GABAPENTIN 400 MG (NEURONTIN) CAP PO SCH ×3 (08:51→20:55)
[2019-03-11] MEDS: SENNA W/DOCUSATE (SENOKOT S) TABLET PO SCH ×2 (08:52→20:56)
[2019-03-11] MEDS: DOCUSATE SODIUM 100 MG (COLACE) CAP PO SCH ×2 (08:52→20:55)
[2019-03-11] MEDS: POLYETHYLENE GLYCOL 17 GM (MIRALAX) PACK PO SCH ×2 (08:56→20:54)
--- NOTE | 2019-03-11 09:00 | NUR ---
c/o headache pain while in therapy. tylenol given po. @ 1300, pt states, "headache went away, feeling much better."
--- NOTE | 2019-03-11 09:16 | PM&R Progress Note ---
Subjective HPI/CC On Admission Date Seen by Provider: Mar 11, 2019 Time Seen by Provider: 09:00 Subjective/Events-last exam Pt doing well. Dr. Higgins has not evaluated his left eye yet. Bowels moved on the 8th. No pain is reported. Participating in all therapy. Checked meds and labs. Reviewed therapy notes. Conferred with RN. Review of Systems General: Fatigue HEENT: Eye Pain Neurological: Weakness, Numbness, Incoordination Objective Exam Vital Signs Vital Signs Date Time Temp Pulse Resp B/P (MAP) Pulse Ox O2 Delivery O2 Flow Rate FiO2 03/12/19 09:00 Room Air 03/12/19 06:38 36.6 71 20 132/82 (99) 93 Capillary Refill : Less Than 3 Seconds General Appearance: No Apparent Distress, WD/WN, Anxious, Chronically ill HEENT: Normal ENT Inspection, Pharynx Normal, Other (left conjunctiva injected) Neck: Full Range of Motion, Normal Inspection, Non Tender, Supple, Carotid Bruit Respiratory: Chest Non Tender, Lungs Clear, Normal Breath Sounds, No Accessory Muscle Use, No Respiratory Distress Cardiovascular: Regular Rate, Rhythm, No Edema, No Gallop, No JVD, No Murmur, Normal Peripheral Pulses Gastrointestinal: Normal Bowel Sounds, No Organomegaly, No Pulsatile Mass, Non Tender, Soft Back: Normal Inspection, No CVA Tenderness, No Vertebral Tenderness Extremity: Normal Capillary Refill, Normal Inspection, Normal Range of Motion, Non Tender, No Calf Tenderness, No Pedal Edema Neurologic/Psychiatric: Alert, Oriented x3, Normal Mood/Affect, ball winder II-XII Norm as Tested, Abnormal Gait, Motor Weakness (right arm and leg) Skin: Normal Color, Warm/Dry Lymphatic: No Adenopathy Results/Procedures Lab Patient resulted labs reviewed. FIM Transfers Therapy Code Descriptions/Definitions Functional [place] Measure: 0=Not Assessed/NA 4=Minimal Assistance 1=Total Assistance 5=Supervision or Setup 2=Maximal Assistance 6=Modified [place] 3=Moderate Assistance 7=Complete IndependenceSCALE: Activities may be completed with or without assistive devices. 5-Rwdlxdgfyx-vbbdwgv completes the activity by him/herself with no assistance from a helper. 5-Set-up or Clean-up Assistance-helper sets up or cleans up; patient completes activity. [place] assists only prior to or following the activity. 4-Supervision or Touching Assistance-helper provides verbal cues and/or touching/steadying and/or contact guard assistance as patient completes activity. Assistance may be provided throughout the activity or intermittently. 3-Partial/Moderate Assistance-helper does LESS THAN HALF the effort. [place] lifts, holds or supports trunk or limbs, but provides less than half the effort. 2-Substantial/Maximal Assistance-helper does MORE THAN HALF the effort. [place] lifts or holds trunk or limbs and provides more than half the effort. 0-Jkbhxkvxo-npryev does ALL the effort. Patient does none of the effort to complete the activity. Or, the assistance of 2 or more helpers is required for the patient to complete the activity. If activity was not attempted, code reason: 7-Patient Refused. 9-Not Applicable-not attempted and the patient did not perform the activity before the current illness, exacerbation or injury. 10-Not Attempted due to Environmental Limitations-(lack of equipment, weather restraints, etc.). 88-Not Attempted due to Medical Conditions or Safety Concerns. Roll Left to Right (QC): 6 Sit to Lying (QC): 6 Sit to Stand (QC): 6 Chair/Khw-uc-Natqi Xfer(QC): 4 Car Transfer (QC): 4 Gait Training Does the Patient Walk?: Yes Distance: 1000, 150' Walk 10 feet (QC): 4 Walk 50 ft with 2 Turns(QC): 4 Walk 150 ft (QC): 4 Walking 10ft/uneven surface-QC: 4 Gait Assistive Device: None Wheelchair Training Does the Pt Use a Wheelchair?: No Stair Training #of Steps: 4 1 Step (curb) (QC): 4 4 Steps (QC): 4 12 Steps (QC): 88 Balance Picking up an Object (QC): 4 ADL-Treatment Eating (QC): 6 Oral Hygiene (QC): 5 (Set up) Shower/Bathe Self (QC): 4 (SBA) Upper Body Dressing (QC): 4 Lower Body Dressing (QC): 4 On/Off Footwear (QC): 4 Toileting Hygiene (QC): 4 Assessment/Plan Assessment and Plan Assess & Plan/Chief Complaint Assessment: CVA Right eye hemianopsia Left eye acute scleritis Smoker Noncompliance Diabetes mellitus type I noncompliant with insulin Plan: Inpatient rehabilitation protocol Optometry evaluation for left eye scleritis Bowel regimen Blood sugar control Problems: (1) Cryptogenic stroke (2) Hx of diabetes with ketoacidosis (3) Hemianopia of right eye (4) Occipital stroke (5) Metabolic acidosis (6) Poorly controlled type 1 diabetes mellitus (7) Seizure disorder (8) Diabetic retinopathy (9) Renal stones (10) Gout (11) Arthritis (12) Smoker (13) Marijuana use (14) Scleritis (15) Depression (16) Hx of respiratory failure (17) History of ventilator dependency (18) Metabolic encephalopathy (19) Status post placement of implantable loop recorder (20) Hyperlipemia (21) GERD (gastroesophageal reflux disease) (22) Neuropathy (23) S/P transesophageal echocardiogram (TRINA) (24) Right sided weakness (1) Cryptogenic stroke (2) Hx of diabetes with ketoacidosis (3) Hemianopia of right eye (4) Occipital stroke (5) Metabolic acidosis (6) Poorly controlled type 1 diabetes mellitus (7) Seizure disorder (8) Diabetic retinopathy (9) Renal stones (10) Gout (11) Arthritis (12) Smoker (13) Marijuana use (14) Scleritis (15) Depression (16) Hx of respiratory failure (17) History of ventilator dependency (18) Metabolic encephalopathy (19) Status post placement of implantable loop recorder (20) Hyperlipemia (21) GERD (gastroesophageal reflux disease) (22) Neuropathy (23) S/P transesophageal echocardiogram (TRINA) (24) Right sided weakness ALLAN ALLEN DO Mar 11, 2019 09:16
[2019-03-11] MEDS: NICOTINE 2 MG GUM (NICORETTE) BC PRN ×4 (09:25→20:56)
--- NOTE | 2019-03-11 10:45 | NUR ---
Pastoral care visit.
--- NOTE | 2019-03-11 13:22 | Occupational Ther Daily Note ---
OT Current Status-Daily Note Subjective OT and pt. talked about pt's visual issues at this time. No pain reported at this time. Appearance Pt. up in chair. Agrees to work with OT. Mental Status/Objective Patient Orientation: Person, Place, Time, Situation ADL-Treatment Therapy Code Descriptions/Definitions Functional [place] Measure: 0=Not Assessed/NA 4=Minimal Assistance 1=Total Assistance 5=Supervision or Setup 2=Maximal Assistance 6=Modified [place] 3=Moderate Assistance 7=Complete IndependenceSCALE: Activities may be completed with or without assistive devices. 6-Jswusqjbhz-gcsbwkp completes the activity by him/herself with no assistance from a helper. 5-Set-up or Clean-up Assistance-helper sets up or cleans up; patient completes activity. [place] assists only prior to or following the activity. 4-Supervision or Touching Assistance-helper provides verbal cues and/or touching/steadying and/or contact guard assistance as patient completes activity. Assistance may be provided throughout the activity or intermittently. 3-Partial/Moderate Assistance-helper does LESS THAN HALF the effort. [place] lifts, holds or supports trunk or limbs, but provides less than half the effort. 2-Substantial/Maximal Assistance-helper does MORE THAN HALF the effort. [place] lifts or holds trunk or limbs and provides more than half the effort. 0-Wikdunzst-npepkv does ALL the effort. Patient does none of the effort to complete the activity. Or, the assistance of 2 or more helpers is required for the patient to complete the activity. If activity was not attempted, code reason: 7-Patient Refused. 9-Not Applicable-not attempted and the patient did not perform the activity before the current illness, exacerbation or injury. 10-Not Attempted due to Environmental Limitations-(lack of equipment, weather restraints, etc.). 88-Not Attempted due to Medical Conditions or Safety Concerns. Eating (QC): 6 Oral Hygiene (QC): 6 Shower/Bathe Self (QC): 6 Upper Body Dressing (QC): 6 Lower Body Dressing (QC): 6 On/Off Footwear: 6 Toileting Hygiene (QC): 6 Toilet Transfer (QC): 6 Other Treatment Pt. showers and dresses this date with independence. Pt. states that he feels "wobbly" at times, but reports that he feels is stability is good. After ADLs, pt. and OT talk in depth regarding visual issues. Pt. reports that previous to his CVA, he was receiving steroid shots for his retinas from specialist. He states that he is due for another shot. He was also taking Molaxacam for inflammation previous to this CVA, and is no longer taking it. OT reported this to nursing. Pt. states that at , he was having severe eye pain in left eye, and was diagnosed with scleritis from an principal ios developer there. At this time, pt. reports having decreased vision on right side, that has been present since his CVA. Pt. participated in visual assessment with occupational therapist. OT performed the brain injury Visual Assessment Battery for Adults, (The biVABA). During this assessment, pt. participated in series of activities to assess visual acuity, reading acuity, pupillary function, and overall visual albert to assess therapy goals. Findings are as follows.... -bilateral pupil size to be approximately 3 mm -pt. to be left eye dominant -bilateral eyes do not constrict with light stimulation -Right eye acuity to be 20/30 without glasses, Left eye to be 20/100 without glasses, and eyes together to be 20/30 without glasses -Reading acuity to be 20/50 without glasses -Functional visual field with left eye -Limited visual field in right eye. Pt. demonstrates ability to see objects placed directly in front of right eye, and approximately 10 degrees to either side. Noted perceived loss in upper and lower quadrant with vertical visual field, as well as horizontal visual field. -Ability to scan left to right, top to bottom with noted difficulty at midline. OT and pt. talk about crude results and need to follow up with ophthalmology. Encouraged pt. to be aware of right side, to scan fully, as well as turn head when observing that side. Pt. has glasses for far sightedness, but does not seem to wear them. Pt. is also educated about importance of diabetic compliance in regards to eye health. Pt. states that overall, he does "not follow it well." OT stresses importance of this. Pt. verbalizes understanding. Nursing notified that pt. reports he usually takes medication for inflammation, and is currently not taking it. All needs are met in room. Education OT Patient Education: Correct positioning, Modified ADL techniques, Progress toward Goal/Update tx plan, Purpose of tx/functional activities, Reviewed precautions, Rehab process, Transfer techniques Teaching Recipient: Patient Teaching Methods: Demonstration, Discussion Response to Teaching: Verbalize Understanding, Return Demonstration OT Detention Goals Tube Skiver Goals Time Frame: Mar 17, 2019 Eating (QC): 6 Oral Hygiene (QC): 6 Toileting Hygiene (QC): 6 Shower/Bathe Self (QC): 6 Upper Body Dressing (QC): 6 Lower Body Dressing (QC): 6 On/Off Footwear (QC): 6 Additional Goals: 1-Demonstrate ADL Tasks, 2-Verbalize Understanding, 3-ImproveStrength/[place] 1=Demonstrate adherence to instructed precautions during ADL tasks. 2=Patient will verbalize/demonstrate understanding of assistive devices/modifications for ADL. 3=Patient will improve strength/tolerance for activity to enable patient to perform ADL's. OT Education/Plan Problem List/Assessment Assessment: Decreased Activ Tolerance, Visual-Perceptual Deficit Discharge Recommendations Plan/Recommendations: Continue POC Treatment Plan/Plan of Care Treatment,Training & Education: Yes Patient would benefit from OT for education, treatment and training to promote independence in ADL's, mobility, safety and/or upper extremity function for ADL's. Plan of Care: ADL Retraining, Functional Mobility, Group Exercise/Act as Ind, UE Funct Exercise/Act Treatment Duration: Mar 17, 2019 Frequency: At least 5 of 7 days/Wk (IRF) Estimated Hrs Per Day: 1.5 hours per day Agreement: Yes Rehab Potential: Good Time/GCodes Start Time: 10:40 Stop Time: 12:10 Total Time Billed (hr/min): 90 Billed Treatment Time 1, ADL x 45minutes, FA x 45minutes LESLY GRAY OT Mar 11, 2019 13:22
--- NOTE | 2019-03-11 13:51 | Physical Therapy Daily Note ---
PT Daily Note-Current Subjective Patient in recliner pre tx, agrees to PT, has no complaints of pain. Appearance Patient in recliner post tx with nurse call, phone, tray, all needs met. Mental Status Patient Orientation: Normal For Age Transfers SCALE: Activities may be completed with or without assistive devices. 2-Uuzmocjenq-hlkpnse completes the activity by him/herself with no assistance from a helper. 5-Set-up or Clean-up Assistance-helper sets up or cleans up; patient completes activity. [place] assists only prior to or following the activity. 4-Supervision or Touching Assistance-helper provides verbal cues and/or touching/steadying and/or contact guard assistance as patient completes activity. Assistance may be provided throughout the activity or intermittently. 3-Partial/Moderate Assistance-helper does LESS THAN HALF the effort. [place] lifts, holds or supports trunk or limbs, but provides less than half the effort. 2-Substantial/Maximal Assistance-helper does MORE THAN HALF the effort. [place] lifts or holds trunk or limbs and provides more than half the effort. 7-Pdjhkngqv-owkbgh does ALL the effort. Patient does none of the effort to complete the activity. Or, the assistance of 2 or more helpers is required for the patient to complete the activity. If activity was not attempted, code reason: 7-Patient Refused. 9-Not Applicable-not attempted and the patient did not perform the activity before the current illness, exacerbation or injury. 10-Not Attempted due to Environmental Limitations-(lack of equipment, weather restraints, etc.). 88-Not Attempted due to Medical Conditions or Safety Concerns. Sit to Stand (QC): 6 Chair/Lky-tp-Fojzx Xfer(QC): 6 Gait Training Distance: 1000' Walk 10 feet (QC): 4 Walk 50 ft with 2 Turns(QC): 4 Walk 150 ft (QC): 4 Gait Assistive Device: None SBA, no unsteadiness even with turning, patient ambulated to outside and on sidewalks, ramps, community surfaces Treatments ambulation Assessment Current Status: Fair Progress improving ambulation and balance PT Short Term Goals Short Term Goals Time Frame: Mar 17, 2019 Roll Left & Right: 6 Sit to lyin Lying to sitting on side of be: 6 Sit to stand: 6 Chair/jsa-ud-oinzp transfer: 5 Walk 10 feet: 5 Walk 50 feet with two turns: 5 Walk 150 feet: 5 Walking 10ft on uneven surface: 4 PT Prison Goals Prison Goals PT Food Beverage Manager Goals Time Frame: Mar 31, 2019 Roll Left & Right (QC): 6 Sit to Lying (QC): 6 Lying-Sitting on Side/Bed(QC): 6 Sit to Stand (QC): 6 Chair/Zxc-ss-Sgpcv Xfer(QC): 6 Toilet Transfer (QC): 6 Car Transfer (QC): 6 Walk 10 feet (QC): 6 Walk 50ft with 2 Turns (QC): 6 Walk 150 ft (QC): 6 Walking 10ft on Uneven Surface: 6 1 Step (curb) (QC): 6 4 Steps (QC): 6 12 Steps (QC): 6 Picking up an Object (QC): 6 PT Plan Problem List Problem List: Activity Tolerance, Functional Strength, Safety, Balance, Gait, Transfer Treatment/Plan Treatment Plan: Continue Plan of Care Treatment Plan: Education, Functional Activity Marino, Functional Strength, Group Therapy, Gait, Safety, Therapeutic Exercise, Transfers Treatment Duration: Mar 31, 2019 Frequency: At least 5 of 7 days/Wk (IRF) Estimated Hrs Per Day: 1.5 hours per day Patient and/or Family Agrees t: Yes Safety Risks/Education Patient Education: Gait Training, Transfer Techniques, Correct Positioning, Safety Issues Teaching Recipient: Patient Teaching Methods: Demonstration, Discussion Response to Teaching: Reinforcement Needed Time/GCodes Time In: 1330 Time Out: 1400 Total Billed Treatment Time: 30 Total Billed Treatment 1 visit GT 30' ISAI PFEIFFER PT Mar 11, 2019 13:51
--- NOTE | 2019-03-11 14:42 | Speech Therapy Daily Note ---
Speech Daily Progress Note Subjective Date Seen by Provider: Mar 11, 2019 Time Seen by Provider: 09:00 Patient was alert, pleasant, and cooperative for all therapy tasks. Patient was sitting upright in his chair for the duration of therapy. Objective Patient completed memory tasks with 90% accuracy and word finding tasks with 80% accuracy with minimal cues. Assessment Assessment Current Status: Good Progress Treatment Plan Continue Plan of Care Speech Short Term Goals Short Term Goals Short Term Goals 1. Patient will complete memory tasks with 90% or greater accuracy with minimal cues. 2. Patient will complete problem solving tasks with 90% or greater accuracy with minimal cues. 3. Patient will complete safety awareness tasks with 90% or greater accuracy with minimal cues. 4. Patient will complete word finding tasks with 90% or greater accuracy with minimal cues. Speech Brine Mixer Operator Goals [facility] Goals Patient will improve cognitive-communication necessary for safety and daily living tasks with minimal assistance. 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 Treatment Plan Speech Therapy Treatment Plan: Continue Plan of Care Treatment Duration: Mar 18, 2019 Frequency: 5 times per week Estimated Hrs Per Day: .5 hour per day Rehab Potential: Good Barriers to Learning: CVA Pt/Family Agrees to Plan: Yes Safety Risks/Education Teaching Recipient: Patient Teaching Methods: Demonstration, Discussion Response to Teaching: Verbalize Understanding Education Topics Provided: Patient discussed returning home and current level of cognitive functioning. Time Speech Therapy Time In: 09:00 Speech Therapy Time Out: 09:45 Total Billed Time: 45 Billed Treatment Time 1. CHELSEA Hare Mar 11, 2019 14:42
--- NOTE | 2019-03-11 14:44 | NUR ---
pt voices, "I last saw a lady eye doctor last summer and she set me up to see Dr. Granados from [facility], who comes and gives me retinal shots every three months. I was supposed to have my appointment 2 days ago, but I called and rescheduled for 05/02/2019." voices c/o eye pain in left eye with quick movements and when closing lid. Dr. Higgins consulted, will be stopping in later tonight or in the morning.
--- NOTE | 2019-03-11 17:44 | NUR ---
Dr. Cummings stops to see pt for c/o scleritis and soreness in L eye. begins Maxitrol eye drops Q4H, and would like to see patient upon dismissal or within one week of dismissal, unless worsening symptoms, then wants to be notified. Note for appt made in discharge note and passed along in nursing notes. will continue to monitor.
[2019-03-11] MEDS: ENOXAPARIN 40 MG/0.4 ML (LOVENOX) SYR SC SCH (17:51)
[2019-03-11 18:00] VITALS: BP 124/84
--- NOTE | 2019-03-11 18:00 | NUR ---
Pt expresses concerns regarding incoming weather, traveling to for work this weekend, and highschool aged children being home. Voices, "I'm just all bound up and haven't had a BM yet today either." reassurance given, lactulose given po along with xanax.
[2019-03-11] MEDS: ALPRAZolam 0.25 MG (XANAX) TAB PO PRN (18:02)
[2019-03-11] MEDS: traZODone 100 MG (DESYREL) TAB PO PRN (20:55)
[2019-03-11] MEDS: NEO/POLY/DEX (MAXITROL) OPHTH SUSP 5 ML OS SCH (20:55)
[2019-03-11] MEDS: MELATONIN 3 MG TABLET PO PRN (20:56)
[2019-03-12] MEDS: NEO/POLY/DEX (MAXITROL) OPHTH SUSP 5 ML OS SCH ×6 (01:21→20:57)
[2019-03-12 06:38] VITALS: BP 132/82
[2019-03-12] MEDS: inSUlin ASPART (NovoLOG) 1 UNIT/0.01 ML (CHARGE PER UNIT) SC SCH ×3 (06:45→17:04)
[2019-03-12] MEDS: PANTOPRAZOLE 20 MG TABLET (PROTONIX) PO SCH (08:43)
[2019-03-12] MEDS: NICOTINE 21 MG (NICODERM) PATCH TD SCH (08:43)
[2019-03-12] MEDS: NICOTINE PATCH REMOVAL TP SCH (08:43)
[2019-03-12] MEDS: LEVETIRACETAM 500 MG (KEPPRA) TAB PO SCH ×2 (08:43→20:57)
[2019-03-12] MEDS: ASPIRIN E.C. 81 MG (ECOTRIN) TAB PO SCH (08:43)
[2019-03-12] MEDS: GABAPENTIN 400 MG (NEURONTIN) CAP PO SCH ×3 (08:43→20:57)
[2019-03-12] MEDS: POLYETHYLENE GLYCOL 17 GM (MIRALAX) PACK PO SCH ×2 (09:00→21:18)
[2019-03-12] MEDS: SENNA W/DOCUSATE (SENOKOT S) TABLET PO SCH ×2 (09:00→21:18)
[2019-03-12] MEDS: DOCUSATE SODIUM 100 MG (COLACE) CAP PO SCH ×2 (09:00→21:18)
--- NOTE | 2019-03-12 09:41 | Physical Therapy Daily Note ---
PT Daily Note-Current Subjective Pt agreeable to PT session, requesting to go outside for just a few minutes, feeling he just needs a breath of fresh air as he is used to being outside a lot, even though it is snowing and icing and very cold. Pain Numeric Pain Scale: 0-No Pain Appearance Pt in bed awake and alert upon arrival. At end of session, pt sitting up in recliner with call light, phone and bedside table within reach. Mental Status Patient Orientation: Person, Place, Time, Eyes Open, Situation Transfers SCALE: Activities may be completed with or without assistive devices. 7-Armvoagzlz-opsvhtx completes the activity by him/herself with no assistance from a helper. 5-Set-up or Clean-up Assistance-helper sets up or cleans up; patient completes activity. [place] assists only prior to or following the activity. 4-Supervision or Touching Assistance-helper provides verbal cues and/or touching/steadying and/or contact guard assistance as patient completes activit y. Assistance may be provided throughout the activity or intermittently. 3-Partial/Moderate Assistance-helper does LESS THAN HALF the effort. [place] lifts, holds or supports trunk or limbs, but provides less than half the effort. 2-Substantial/Maximal Assistance-helper does MORE THAN HALF the effort. [place] lifts or holds trunk or limbs and provides more than half the effort. 2-Ikcklvykl-hdsews does ALL the effort. Patient does none of the effort to complete the activity. Or, the assistance of 2 or more helpers is required for the patient to complete the activity. If activity was not attempted, code reason: 7-Patient Refused. 9-Not Applicable-not attempted and the patient did not perform the activity before the current illness, exacerbation or injury. 10-Not Attempted due to Environmental Limitations-(lack of equipment, weather restraints, etc.). 88-Not Attempted due to Medical Conditions or Safety Concerns. Roll Left & Right (QC): 6 Lying to Sitting/Side of Bed(Q: 6 Sit to Stand (QC): 4 (unsteady upon immediate stance but without LOB) Gait Training Does the Patient Walk?: Yes Distance: 1000 Gait Assistive Device: None occasional path deviation and unsteadiness self corrected, no LOB, working on peripheral vision during gait with turning head to side to look at objects and increasing step height and heel strike Neuromuscular working on exaggerated step with gait in // bars attempting without UE support but occasionally requiring unilat UE to steady, emphasizing sequencing, increased lift with swing through, increased DF with heel strike Treatments bed mobility, safety, education, transfers, gait indoor and outdoor, balance, strength, activity tolerance, functional mobility Assessment Current Status: Good Progress PT Short Term Goals Short Term Goals Time Frame: Mar 17, 2019 Roll Left & Right: 6 Sit to lyin Lying to sitting on side of be: 6 Sit to stand: 6 Chair/zlm-ad-umojm transfer: 5 Walk 10 feet: 5 Walk 50 feet with two turns: 5 Walk 150 feet: 5 Walking 10ft on uneven surface: 4 PT Pharmacy Salesperson Goals [facility] Goals PT Pharmacy Salesperson Goals Time Frame: Mar 31, 2019 Roll Left & Right (QC): 6 Sit to Lying (QC): 6 Lying-Sitting on Side/Bed(QC): 6 Sit to Stand (QC): 6 Chair/Mvj-pc-Uyclo Xfer(QC): 6 Toilet Transfer (QC): 6 Car Transfer (QC): 6 Walk 10 feet (QC): 6 Walk 50ft with 2 Turns (QC): 6 Walk 150 ft (QC): 6 Walking 10ft on Uneven Surface: 6 1 Step (curb) (QC): 6 4 Steps (QC): 6 12 Steps (QC): 6 Picking up an Object (QC): 6 PT Plan Treatment/Plan Treatment Plan: Continue Plan of Care Treatment Plan: Education, Functional Activity Marino, Functional Strength, Group Therapy, Gait, Safety, Therapeutic Exercise, Transfers Treatment Duration: Mar 31, 2019 Frequency: At least 5 of 7 days/Wk (IRF) Estimated Hrs Per Day: 1.5 hours per day Patient and/or Family Agrees t: Yes Safety Risks/Education Patient Education: Gait Training, Transfer Techniques, Disease Process, Safety Issues Teaching Recipient: Patient Teaching Methods: Demonstration, Discussion Response to Teaching: Verbalize Understanding, Return Demonstration Time/GCodes Time In: 910 Time Out: 933 Total Billed Treatment Time: 23 Total Billed Treatment 1 visit, GT x1 unit, NM x1 unit REMY CARDENAS PTA Mar 12, 2019 09:41
--- NOTE | 2019-03-12 10:57 | PM&R Progress Note ---
Subjective HPI/CC On Admission Date Seen by Provider: Mar 12, 2019 Time Seen by Provider: 13:00 Subjective/Events-last exam Patient doing very well Dr. Cummings assessed the left eye and started drops and they feel much better No pain is reported Bowels are moving well Sugar 212 this morning Up ad tobias. in room likely soon Was to go home soon Review of Systems Neurological: Weakness, Numbness, Incoordination Objective Exam Vital Signs Vital Signs Date Time Temp Pulse Resp B/P (MAP) Pulse Ox O2 Delivery O2 Flow Rate FiO2 03/12/19 09:00 Room Air 03/12/19 06:38 36.6 71 20 132/82 (99) 93 Capillary Refill : Less Than 3 Seconds General Appearance: No Apparent Distress, WD/WN, Anxious, Chronically ill HEENT: Normal ENT Inspection, Pharynx Normal, Other (left conjunctiva injected) Neck: Full Range of Motion, Normal Inspection, Non Tender, Supple, Carotid Bruit Respiratory: Chest Non Tender, Lungs Clear, Normal Breath Sounds, No Accessory Muscle Use, No Respiratory Distress Cardiovascular: Regular Rate, Rhythm, No Edema, No Gallop, No JVD, No Murmur, Normal Peripheral Pulses Gastrointestinal: Normal Bowel Sounds, No Organomegaly, No Pulsatile Mass, Non Tender, Soft Back: Normal Inspection, No CVA Tenderness, No Vertebral Tenderness Extremity: Normal Capillary Refill, Normal Inspection, Normal Range of Motion, Non Tender, No Calf Tenderness, No Pedal Edema Neurologic/Psychiatric: Alert, Oriented x3, Normal Mood/Affect, hospital security officer II-XII Norm as Tested, Abnormal Gait, Motor Weakness (right arm and leg) Skin: Normal Color, Warm/Dry Lymphatic: No Adenopathy Results/Procedures Lab Patient resulted labs reviewed. FIM Transfers Therapy Code Descriptions/Definitions Functional [place] Measure: 0=Not Assessed/NA 4=Minimal Assistance 1=Total Assistance 5=Supervision or Setup 2=Maximal Assistance 6=Modified [place] 3=Moderate Assistance 7=Complete IndependenceSCALE: Activities may be completed with or without assistive devices. 7-Hsenpajvan-pvonhsy completes the activity by him/herself with no assistance from a helper. 5-Set-up or Clean-up Assistance-helper sets up or cleans up; patient completes activity. [place] assists only prior to or following the activity. 4-Supervision or Touching Assistance-helper provides verbal cues and/or touching/steadying and/or contact guard assistance as patient completes activity. Assistance may be provided throughout the activity or intermittently. 3-Partial/Moderate Assistance-helper does LESS THAN HALF the effort. [place] lifts, holds or supports trunk or limbs, but provides less than half the effort. 2-Substantial/Maximal Assistance-helper does MORE THAN HALF the effort. [place] lifts or holds trunk or limbs and provides more than half the effort. 0-Zctepwjac-pqqcic does ALL the effort. Patient does none of the effort to complete the activity. Or, the assistance of 2 or more helpers is required for the patient to complete the activity. If activity was not attempted, code reason: 7-Patient Refused. 9-Not Applicable-not attempted and the patient did not perform the activity before the current illness, exacerbation or injury. 10-Not Attempted due to Environmental Limitations-(lack of equipment, weather restraints, etc.). 88-Not Attempted due to Medical Conditions or Safety Concerns. Roll Left to Right (QC): 6 Sit to Lying (QC): 6 Sit to Stand (QC): 4 (unsteady upon immediate stance but without LOB) Chair/Xlt-sn-Lbrwg Xfer(QC): 6 Car Transfer (QC): 4 Gait Training Does the Patient Walk?: Yes Distance: 1000 Walk 10 feet (QC): 4 Walk 50 ft with 2 Turns(QC): 4 Walk 150 ft (QC): 4 Walking 10ft/uneven surface-QC: 4 Gait Assistive Device: None Wheelchair Training Does the Pt Use a Wheelchair?: No Stair Training #of Steps: 4 1 Step (curb) (QC): 4 4 Steps (QC): 4 12 Steps (QC): 88 Balance Picking up an Object (QC): 4 ADL-Treatment Eating (QC): 6 Oral Hygiene (QC): 6 Shower/Bathe Self (QC): 6 Upper Body Dressing (QC): 6 Lower Body Dressing (QC): 6 On/Off Footwear (QC): 6 Toileting Hygiene (QC): 6 Toilet Transfer (QC): 6 Assessment/Plan Assessment and Plan Assess & Plan/Chief Complaint Assessment: Cryptogenic stroke Smoker Hyperlipidemia Noncompliance Diabetes mellitus DKA history Plan: Inpatient rehabilitation protocol Diabetes management Monitor left eye Appreciate optometry (1) Cryptogenic stroke (2) Hx of diabetes with ketoacidosis (3) Hemianopia of right eye (4) Occipital stroke (5) Metabolic acidosis (6) Poorly controlled type 1 diabetes mellitus (7) Seizure disorder (8) Diabetic retinopathy (9) Renal stones (10) Gout (11) Arthritis (12) Smoker (13) Marijuana use (14) Scleritis (15) Depression (16) Hx of respiratory failure (17) History of ventilator dependency (18) Metabolic encephalopathy (19) Status post placement of implantable loop recorder (20) Hyperlipemia (21) GERD (gastroesophageal reflux disease) (22) Neuropathy (23) S/P transesophageal echocardiogram (TRINA) (24) Right sided weakness ALLAN ALELN DO Mar 12, 2019 10:57
--- NOTE | 2019-03-12 10:58 | Individualized Plan of Care ---
Individualized Plan of Care Rehab Nursing IPOC Order Admission Date Mar 09, 2019 at 17:00 Current Orders Orders Admission Order(Inpt,Obs,Sdc) (03/09/19 10:39) Vital Signs: Per Unit Policy ( 08,16,00 (03/09/19 10:39) Min Caballero 09,21 (03/09/19 10:39) Sequential Compression Device Q4H (03/09/19 10:39) Valve Assembler-Inpt Rehab Con (03/09/19 10:39) Rehab Nursing Orders-Ipoc (03/09/19 10:39) Physical Therapy Rehab Orders (03/09/19 10:39) Occupational Therapy Rehab Ord (03/09/19 10:39) Speech Therapy Rehab Orders (03/09/19 10:39) Cbc With Automated Diff (03/10/19 06:00) Comprehensive Metabolic Panel (03/10/19 06:00) Intake & Output 06,14,22 (03/09/19 10:39) Accucheck Achs ACHS (03/09/19 10:39) Precautions (Aru) (03/09/19 10:39) Weekly Weight WEEK (03/09/19 10:39) Rehab-Intensity Of Therapy (03/09/19 10:39) Cho 75g/M 3snack (21-2400 Fran) (03/09/19 Dinner) Initiate Admission Nursing Pro .admission (03/09/19 10:39) Acetaminophen Tablet (Tylenol Tablet) (03/09/19 10:45) Alprazolam Tablet (Xanax Tablet) (03/09/19 10:45) Calcium Carbonate Chew Tablet (Antacid C (03/09/19 10:45) Diphenhydramine Tablet (Benadryl Tablet) (03/09/19 10:45) Docusate Sodium Capsule (Colace Capsule) (03/09/19 21:00) Docusate Sodium Capsule (Colace Capsule) (03/09/19 10:45) Bisacodyl Suppository (Dulcolax Supposit (03/09/19 10:45) Lactulose Oral Solution (Enulose Oral So (03/09/19 10:45) Na Phos/Na Biphos Enema (Fleet Enema Nino (03/09/19 10:45) Guaifenesin/Codeine Syrup (Robitussin Ac (03/09/19 10:45) Hydrocodone/Apap 5/325 Tablet (Lortab 5 (03/09/19 10:45) Loperamide Tablet (Imodium Tablet) (03/09/19 10:45) Enoxaparin Injection (Lovenox Injection) (03/09/19 18:00) Melatonin Tablet (Melatonin Tablet) (03/09/19 10:45) Polyethylene Glycol Powder Pkt (Miralax (03/09/19 21:00) Ondansetron Oral Dissolve Tab (Zofran (03/09/19 10:45) Senna S Tablet (Senokot S Tablet) (03/09/19 21:00) Initiate Admission Nursing Pro .admission (03/09/19 10:39) Consult Physician (03/09/19 17:10) Aspirin Enteric Coated Tablet (Ecotrin T (03/10/19 09:00) Atorvastatin Tablet (Lipitor Tablet) (03/09/19 21:00) Levetiracetam Tablet (Keppra Tablet) (03/09/19 21:00) Nicotine Patch (Nicoderm Patch) (03/10/19 09:00) Omeprazole (Non-Formulary) (Prilosec (No (03/10/19 09:00) Trazodone Tablet (Desyrel Tablet) (03/09/19 17:15) (Nf) Citalopram Hydrobromide (Celexa) (03/10/19 09:00) (Nf) Gabapentin (03/09/19 21:00) (Nf) Insulin Aspart (Novolog Flexpen) (03/10/19 06:00) (Nf) Insulin Glargine,Hum.Rec.Anlog (Maximus (03/09/19 21:00) (Nf) Nicotine Polacrilex (Nicorette) (03/09/19 17:15) Insulin Determir (Per Unit) (Levemir (Pe (03/09/19 21:00) Pantoprazole Tablet (Protonix Tablet) (03/10/19 09:00) Patch Removal (Patch Removal) (03/10/19 08:59) Citalopram Tablet (Celexa Tablet) (03/10/19 09:00) Gabapentin Capsule/Tablet (Neurontin Cap (03/09/19 21:00) Insulin Aspart (Novolog) (Novolog (Charg (03/10/19 06:00) Nicotine Gum (Nicorette Gum) (03/09/19 17:30) Nicotine Gum (Nicorette Gum) (03/09/19 17:30) Edu Tobacco/Smoking Cessation .prn (03/09/19 17:59) Ambulate 08,12,20 (03/09/19 18:18) Sequential Compression Device Q4H (03/09/19 18:18) Dvt/Vte Risk - Notifiy Physici Q4H (03/09/19 18:18) Follow-Up Appointment D/C (03/09/19 20:22) Diabetes Education (03/10/19 10:06) Behavorial Health Consult (03/10/19 10:08) Patient Visit (03/10/19 ) Pt Eval Moderate Complexity (03/10/19 ) Functional Activities, Ea 15 (03/10/19 ) Exercise Therap, Ea 15 Min (03/10/19 ) Gait Training, Ea 15 Min (03/10/19 ) Patient Visit (03/10/19 ) Speech Sound Lang Comp (03/10/19 ) Consult Physician (03/11/19 14:03) Patient Visit (03/11/19 ) Gait Training, Ea 15 Min (03/11/19 ) Exercise Therap, Ea 15 Min (03/11/19 ) Patient Visit (03/11/19 ) Treat. Speech/Lang/Voice (03/11/19 ) Isak/Poly/Dex Ophthalmic Susp (Maxitrol O (03/11/19 20:00) Patient Visit (03/12/19 ) Gait Training, Ea 15 Min (03/12/19 ) Ex Neuromuscular, Ea 15 Min (03/12/19 ) Patient Visit (03/12/19 ) Therapeutic, Group (03/12/19 ) Rehab Nursing Orders: Ongoing Assess. of Cognitive Status, Ongoing Assess. of Function Status, Bladder Management, Bladder Scan, Bladder Training, Bowel Management, Bowel Training, Disease Management & Educaiton, DVT Prophylaxis, Fall Prevention, Fluid/Electrolyte/Nutrition Mgmt, Infection Prevention, Medication Management & Education, Management of Risks & Complications, Nutrition Management, Pain Management, Patient/Family Support, Safety Management Intensity of Therapy to be met Patient to be seen: Min.3h per day/5 of 7d PT IPOC Problem List: Activity Tolerance, Functional Strength, Safety, Balance, Gait, Transfer Treatment Plan: Continue Plan of Care Education, Functional Activity Marino, Functional Strength, Group Therapy, Gait, Safety, Therapeutic Exercise, Transfers Treatment Duration: Mar 31, 2019 Frequency: At least 5 of 7 days/Wk (IRF) Estimated Hrs Per Day: 1.5 hours per day OT IPOC Problems: Decreased Activ Tolerance, Visual-Perceptual Deficit OT Treatment, Training and Edu: Yes Plan of Care: ADL Retraining, Functional Mobility, Group Exercise/Act as Ind, UE Funct Exercise/Act Treatment Duration: Mar 17, 2019 Frequency: At least 5 of 7 days/Wk (IRF) Estimated Hrs Per Day: 1.[address] IPOC Speech Therapy Treatment Plan: Continue Plan of Care Treatment Duration: Mar 18, 2019 Frequency: 5 times per week Estimated Hrs Per Day: .5 hour per day Valve Assembler/Case Mgmt Valve Assembler/Case Managemen: Discharge Planning Dietitian/Property Insurance Claims Examiner Dietitian/Property Insurance Claims Examiner to monitor nutritional status and make changes and/or recommendations as needed and work with speech pathology on dietary upgrades as the occur. Neuropsychology/Psychology COPING MECHANISMS, BEHAVIOR MODIFICATION, PT EXPRESSES DESIRE TO STOP SMOKING & BECOME COMPLIANT W HIS DIABETES Physician IPOC Medical Issues being managed closely and that require the 24 hour availability of a physician: Patient with recent stroke and labile diabetes noncompliant with insulin pump at high risk for DKA Brief Synthesis of Preadmission Screen, Post-Admission Evaluation, and Therapy Evaluations: PT and OT will help regain the right sided weakness from stroke and will help regain independent ADLs Medical Prognosis: Good Anticipated Length of Stay: 7 days ALLAN ALLEN DO Mar 12, 2019 10:58
--- NOTE | 2019-03-12 11:46 | Occupational Ther Daily Note ---
OT Current Status-Daily Note Subjective Pt alert, oriented, and willing to participate with OT service. ADL-Treatment Therapy Code Descriptions/Definitions Functional [place] Measure: 0=Not Assessed/NA 4=Minimal Assistance 1=Total Assistance 5=Supervision or Setup 2=Maximal Assistance 6=Modified [place] 3=Moderate Assistance 7=Complete IndependenceSCALE: Activities may be completed with or without assistive devices. 1-Zsrqwpxrod-itinxrj completes the activity by him/herself with no assistance from a helper. 5-Set-up or Clean-up Assistance-helper sets up or cleans up; patient completes activity. [place] assists only prior to or following the activity. 4-Supervision or Touching Assistance-helper provides verbal cues and/or touch ing/steadying and/or contact guard assistance as patient completes activity. Assistance may be provided throughout the activity or intermittently. 3-Partial/Moderate Assistance-helper does LESS THAN HALF the effort. [place] lifts, holds or supports trunk or limbs, but provides less than half the effort. 2-Substantial/Maximal Assistance-helper does MORE THAN HALF the effort. [place] lifts or holds trunk or limbs and provides more than half the effort. 9-Knkxitggj-lsquel does ALL the effort. Patient does none of the effort to complete the activity. Or, the assistance of 2 or more helpers is required for the patient to complete the activity. If activity was not attempted, code reason: 7-Patient Refused. 9-Not Applicable-not attempted and the patient did not perform the activity before the current illness, exacerbation or injury. 10-Not Attempted due to Environmental Limitations-(lack of equipment, weather restraints, etc.). 88-Not Attempted due to Medical Conditions or Safety Concerns. Other Treatment Pt participated in progressive difficulty for NMR this date including PNF diagonal training, bending/reaching to the floor outside of MANJULA, and overhead reaching in diagonal pattern to address visual/perceptual deficits. Progressed difficulty of NMR from maintaining balance on solid surface, to maintaining balance on compromised foam pad. CGA requiried throughout duration of tx. One LOB noted while bending/reaching on foam pad, however pt was able to self correct with CGA. Pt participated in UE ther ex with use of 6# free weight through gross UE Planes of motion, with fatigue and increased time noted with R UE. 1x20 reps completed. OT Retirement Goals Retirement Goals Time Frame: Mar 17, 2019 Eating (QC): 6 Oral Hygiene (QC): 6 Toileting Hygiene (QC): 6 Shower/Bathe Self (QC): 6 Upper Body Dressing (QC): 6 Lower Body Dressing (QC): 6 On/Off Footwear (QC): 6 Additional Goals: 1-Demonstrate ADL Tasks, 2-Verbalize Understanding, 3- ImproveStrength/[place] 1=Demonstrate adherence to instructed precautions during ADL tasks. 2=Patient will verbalize/demonstrate understanding of assistive devices/modifications for ADL. 3=Patient will improve strength/tolerance for activity to enable patient to perform ADL's. OT Education/Plan Discharge Recommendations Plan/Recommendations: Continue POC Treatment Plan/Plan of Care Patient would benefit from OT for education, treatment and training to promote independence in ADL's, mobility, safety and/or upper extremity function for ADL's. Plan of Care: ADL Retraining, Functional Mobility, Group Exercise/Act as Ind, UE Funct Exercise/Act Treatment Duration: Mar 17, 2019 Frequency: At least 5 of 7 days/Wk (IRF) Estimated Hrs Per Day: 1.5 hours per day Agreement: Yes Rehab Potential: Good Time/GCodes Start Time: 11:08 Stop Time: 11:38 Total Time Billed (hr/min): 30 Billed Treatment Time 1, NM1, EX1 JULY SOSA OT Mar 12, 2019 11:46
[2019-03-12] MEDS: ALPRAZolam 0.25 MG (XANAX) TAB PO PRN ×2 (12:50→20:57)
[2019-03-12] MEDS: NICOTINE 2 MG GUM (NICORETTE) BC PRN (12:51)
--- NOTE | 2019-03-12 12:54 | Therapy Group Daily Note ---
Therapy Daily Group Note Patient Education Topic Exercises Exercises LE Seated Exercise (15 reps), Sit to/from Stand (5 reps), ROM, UE Exercise (15 reps) Session Ratio (pt:therapist): 4:1 Goal of Session: Education on ARU Expectations, UE/LE Strengthing Goal Met for this Session: Yes Pt Benefit of Group: Increased Functional Strength, Socialization Other/Notes Pt. in gym upon group session, just completed OT session. Pt. participated fully throughout session and socialized freely with other group participants. Pt. had full LE ROM with exercises and able to complete (I). Pt. did have limited shoulder flexion ROM with exercises. He completed sit to stand mod (I). Pt. reported fatigue post session. He ambulated (I) to room post session, up in chair with lunch present, call light in reach and all needs met. Start Time: 11:35 Stop Time: 12:35 Total Billed Treatment Time: 60 Total Billed Treatment 1, GRP 60' ASYA RALPH PT Mar 12, 2019 12:54
[2019-03-12 17:19] VITALS: BP 122/76
[2019-03-12] MEDS: ENOXAPARIN 40 MG/0.4 ML (LOVENOX) SYR SC SCH (18:06)
[2019-03-12] MEDS: MELATONIN 3 MG TABLET PO PRN (20:57)
[2019-03-12] MEDS: traZODone 100 MG (DESYREL) TAB PO PRN (20:57)
[2019-03-13] MEDS: NEO/POLY/DEX (MAXITROL) OPHTH SUSP 5 ML OS SCH ×6 (01:01→20:32)
[2019-03-13 06:40] VITALS: BP 130/86
[2019-03-13] MEDS: inSUlin ASPART (NovoLOG) 1 UNIT/0.01 ML (CHARGE PER UNIT) SC SCH ×3 (07:21→16:54)
[2019-03-13] MEDS: PANTOPRAZOLE 20 MG TABLET (PROTONIX) PO SCH (08:57)
[2019-03-13] MEDS: NICOTINE 21 MG (NICODERM) PATCH TD SCH (08:57)
[2019-03-13] MEDS: POLYETHYLENE GLYCOL 17 GM (MIRALAX) PACK PO SCH ×2 (08:57→21:02)
[2019-03-13] MEDS: GABAPENTIN 400 MG (NEURONTIN) CAP PO SCH ×3 (08:58→20:32)
[2019-03-13] MEDS: LEVETIRACETAM 500 MG (KEPPRA) TAB PO SCH ×2 (08:58→20:32)
[2019-03-13] MEDS: ASPIRIN E.C. 81 MG (ECOTRIN) TAB PO SCH (08:58)
[2019-03-13] MEDS: SENNA W/DOCUSATE (SENOKOT S) TABLET PO SCH ×2 (08:58→21:02)
[2019-03-13] MEDS: DOCUSATE SODIUM 100 MG (COLACE) CAP PO SCH ×2 (08:58→21:02)
[2019-03-13] MEDS: NICOTINE PATCH REMOVAL TP SCH (08:59)
[2019-03-13] MEDS: NICOTINE 2 MG GUM (NICORETTE) BC PRN ×4 (09:35→21:36)
[2019-03-13] MEDS: ALPRAZolam 0.25 MG (XANAX) TAB PO PRN (14:30)
--- NOTE | 2019-03-13 15:34 | NUR ---
Je is a 43 yo male currently present on ARU post seizure and stroke. He is doing very well both physically and emotionally. He does have some intermittent anxiety at times d/t current health history but is resolved with oral medication and walking. Patient is up independently and was set up for a shower today. He did report not feeling well after lunch, vitals were stable, blood sugar was noted to be 115 (which is low for this patient, current A1C 16). A snack and some Xanax helped relieve his stress. He has ambulated in the halls without issues and walked outside with this staff member. No concerns noted. Dr. Richard rounded and no issues voiced. This nurse will continue to monitor patient throughout shift.
[2019-03-13] MEDS: ENOXAPARIN 40 MG/0.4 ML (LOVENOX) SYR SC SCH (17:01)
[2019-03-13 17:45] VITALS: BP 136/80
[2019-03-13] MEDS: MELATONIN 3 MG TABLET PO PRN (20:32)
[2019-03-13] MEDS: traZODone 100 MG (DESYREL) TAB PO PRN (20:32)
[2019-03-14] MEDS: NEO/POLY/DEX (MAXITROL) OPHTH SUSP 5 ML OS SCH ×4 (00:43→12:12)
[2019-03-14 06:36] VITALS: BP 111/70
[2019-03-14] MEDS: inSUlin ASPART (NovoLOG) 1 UNIT/0.01 ML (CHARGE PER UNIT) SC SCH ×2 (06:43→12:12)
[2019-03-14] MEDS: NICOTINE 2 MG GUM (NICORETTE) BC PRN ×2 (07:56→11:23)
--- NOTE | 2019-03-14 08:53 | Physical Therapy Daily Note ---
PT Daily Note-Current Subjective Patient in bed pre tx, agrees to PT, has no complaints of pain, states he feels like his vision has gotten a little better. Appearance Patient in room post tx with nurse call, phone, tray, all needs met. Mental Status Patient Orientation: Normal For Age Transfers SCALE: Activities may be completed with or without assistive devices. 6-Rlovlwrdon-shvvoqy completes the activity by him/herself with no assistance from a helper. 5-Set-up or Clean-up Assistance-helper sets up or cleans up; patient completes activity. [place] assists only prior to or following the activity. 4-Supervision or Touching Assistance-helper provides verbal cues and/or touching/steadying and/or contact guard assistance as patient completes activity. Assistance may be provided throughout the activity or intermittently. 3-Partial/Moderate Assistance-helper does LESS THAN HALF the effort. [place] lifts, holds or supports trunk or limbs, but provides less than half the effort. 2-Substantial/Maximal Assistance-helper does MORE THAN HALF the effort. [place] lifts or holds trunk or limbs and provides more than half the effort. 9-Usnmuprcs-ercjhj does ALL the effort. Patient does none of the effort to complete the activity. Or, the assistance of 2 or more helpers is required for the patient to complete the activity. If activity was not attempted, code reason: 7-Patient Refused. 9-Not Applicable-not attempted and the patient did not perform the activity before the current illness, exacerbation or injury. 10-Not Attempted due to Environmental Limitations-(lack of equipment, weather restraints, etc.). 88-Not Attempted due to Medical Conditions or Safety Concerns. Roll Left & Right (QC): 6 Sit to Lying (QC): 6 Lying to Sitting/Side of Bed(Q: 6 Sit to Stand (QC): 6 Chair/Bvk-le-Pkkdn Xfer(QC): 6 Gait Training Distance: 1000', 150' Walk 10 feet (QC): 6 Walk 50 ft with 2 Turns(QC): 6 Walk 150 ft (QC): 6 Gait Assistive Device: None Patient ambulates slowly and without unsteadiness but feels like he would be more confident with a single point cane. Stair Training Stair Training: Handrails/: 1 handrail #of Steps: 24 1 Step (curb) (QC): 4 4 Steps (QC): 4 12 Steps (QC): 4 Stairs: Pattern: Step to Patient had one stumble going down stairs but no LOB or fall. Cues for foot placement. Exercises LAQ alternating for 5 min with 2# ankle weights NuStep Minutes: 15 NuStep Workload: 5 Neuromuscular backwards walking, sidestepping, tandem gait 70' each Treatments transfers, ambulation, balance training, functional strengthening Assessment Current Status: Fair Progress improving general mobility, patient is going to the bathroom on his own in his r oom and no falls PT Short Term Goals Short Term Goals Time Frame: Mar 17, 2019 Roll Left & Right: 6 Sit to lyin Lying to sitting on side of be: 6 Sit to stand: 6 Chair/koh-yn-xpflw transfer: 5 Walk 10 feet: 5 Walk 50 feet with two turns: 5 Walk 150 feet: 5 Walking 10ft on uneven surface: 4 PT Workday Financials Consultant Goals Workday Financials Consultant Goals PT Group Home Goals Time Frame: Mar 31, 2019 Roll Left & Right (QC): 6 Sit to Lying (QC): 6 Lying-Sitting on Side/Bed(QC): 6 Sit to Stand (QC): 6 Chair/Ppv-iz-Nheqx Xfer(QC): 6 Toilet Transfer (QC): 6 Car Transfer (QC): 6 Walk 10 feet (QC): 6 Walk 50ft with 2 Turns (QC): 6 Walk 150 ft (QC): 6 Walking 10ft on Uneven Surface: 6 1 Step (curb) (QC): 6 4 Steps (QC): 6 12 Steps (QC): 6 Picking up an Object (QC): 6 PT Plan Problem List Problem List: Activity Tolerance, Functional Strength, Safety, Balance, Gait, Transfer Treatment/Plan Treatment Plan: Continue Plan of Care Treatment Plan: Education, Functional Activity Marino, Functional Strength, Group Therapy, Gait, Safety, Therapeutic Exercise, Transfers Treatment Duration: Mar 31, 2019 Frequency: At least 5 of 7 days/Wk (IRF) Estimated Hrs Per Day: 1.5 hours per day Patient and/or Family Agrees t: Yes Safety Risks/Education Patient Education: Gait Training, Transfer Techniques, Correct Positioning, Safety Issues Teaching Recipient: Patient Teaching Methods: Demonstration, Discussion Response to Teaching: Reinforcement Needed Time/GCodes Time In: 0800 Time Out: 0900 Total Billed Treatment Time: 60 Total Billed Treatment 1 visit NM 10' GT 20' EX 30' ISAI PFEIFFER PT Mar 14, 2019 08:53
[2019-03-14] MEDS: NICOTINE PATCH REMOVAL TP SCH (09:26)
[2019-03-14] MEDS: PANTOPRAZOLE 20 MG TABLET (PROTONIX) PO SCH (09:27)
[2019-03-14] MEDS: DOCUSATE SODIUM 100 MG (COLACE) CAP PO SCH (09:27)
[2019-03-14] MEDS: GABAPENTIN 400 MG (NEURONTIN) CAP PO SCH ×2 (09:27→13:56)
[2019-03-14] MEDS: ASPIRIN E.C. 81 MG (ECOTRIN) TAB PO SCH (09:27)
[2019-03-14] MEDS: LEVETIRACETAM 500 MG (KEPPRA) TAB PO SCH (09:27)
[2019-03-14] MEDS: SENNA W/DOCUSATE (SENOKOT S) TABLET PO SCH (09:27)
[2019-03-14] MEDS: NICOTINE 21 MG (NICODERM) PATCH TD SCH (09:27)
[2019-03-14] MEDS: POLYETHYLENE GLYCOL 17 GM (MIRALAX) PACK PO SCH (09:29)
[2019-03-14] MEDS ORDERED: ASPI-983 PO (11:05)
[2019-03-14] MEDS ORDERED: [UNRECOGNIZED DRUG - CODE] MC (11:05)
[2019-03-14] MEDS ORDERED: INSU100V16 SC (11:05)
[2019-03-14] MEDS ORDERED: LEVE500T6 PO (11:05)
[2019-03-14] MEDS ORDERED: INSU100V5 SQ (11:05)
[2019-03-14] MEDS ORDERED: ALPR0.5T7 PO (11:05)
--- NOTE | 2019-03-14 11:06 | Discharge Summary ---
Diagnosis/Chief Complaint Date of Admission Mar 09, 2019 at 17:00 Date of Discharge Discharge Date: Mar 14, 2019 Discharge Diagnosis Assessment: Cryptogenic stroke Smoker Hyperlipidemia Noncompliance Diabetes mellitus DKA history Plan: Inpatient rehabilitation protocol Diabetes management Monitor left eye Appreciate optometry (1) Cryptogenic stroke (2) Hx of diabetes with ketoacidosis (3) Hemianopia of right eye (4) Occipital stroke (5) Metabolic acidosis (6) Poorly controlled type 1 diabetes mellitus (7) Seizure disorder (8) Diabetic retinopathy (9) Renal stones (10) Gout (11) Arthritis (12) Smoker (13) Marijuana use (14) Scleritis (15) Depression (16) Hx of respiratory failure (17) History of ventilator dependency (18) Metabolic encephalopathy (19) Status post placement of implantable loop recorder (20) Hyperlipemia (21) GERD (gastroesophageal reflux disease) (22) Neuropathy (23) S/P transesophageal echocardiogram (TRINA) (24) Right sided weakness Discharge Summary Discharge Physical Examination Allergies: Coded Allergies: NKANo Known Allergies (Verified Allergy, Unknown, 05/19/05) Vitals & I&Os Vital Signs Date Time Temp Pulse Resp B/P (MAP) Pulse Ox O2 Delivery O2 Flow Rate FiO2 03/14/19 15:15 03/14/19 08:10 Room Air 03/14/19 06:36 36.7 80 20 94 General Appearance: Alert, Oriented X3, Cooperative Respiratory: Clear to Auscultation Cardiovascular: Regular Rate Neuro: Normal Gait, Normal Speech, Strength at 5/5 X4 Ext Hospital Course Was the Problem List Reviewed?: Yes Hospital course: Pt had an uneventful hospital course for six days after being admitted from for CVA, right-sided weakness resolved, getting back to prior level of functioning and he was maintained on all stroke protocol medication, will have close follow-up with [facility], along with smoking cessation counseling, and was deemed stable for discharge. Labs (last 24 hrs) Laboratory Tests 03/09/19 18:14: Glucometer 185H 03/09/19 20:32: Glucometer 237H 03/10/19 05:37: Glucometer 215H 03/10/19 05:42: White Blood Count 6.9, Red Blood Count 4.41, Hemoglobin 13.6, Hematocrit 40, Mean Corpuscular Volume 91, Mean Corpuscular Hemoglobin 31, Mean Corpuscular Hemoglobin Concent 34, Red Cell Distribution Width 12.3, Platelet Count 278, Mean Platelet Volume 9.5, Neutrophils (%) (Auto) 54, Lymphocytes (%) (Auto) 31, Monocytes (%) (Auto) 11, Eosinophils (%) (Auto) 4, Basophils (%) (Auto) 0, Neutrophils # (Auto) 3.7, Lymphocytes # (Auto) 2.1, Monocytes # (Auto) 0.8, Eosinophils # (Auto) 0.3, Basophils # (Auto) 0.0, Sodium Level 140, Potassium Level 3.9, Chloride Level 103, Carbon Dioxide Level 25, Anion Gap 12, Blood Urea Nitrogen 13, Creatinine 1.02, Estimat Glomerular Filtration Rate > 60, BUN/Cre atinine Ratio 13, Glucose Level 224H, Calcium Level 8.9, Corrected Calcium 9.5, Total Bilirubin 0.3, Aspartate Amino Transf (AST/SGOT) 68H, Alanine Aminotransferase (ALT/SGPT) 91H, Alkaline Phosphatase 69, Total Protein 6.6, Albumin 3.3 03/10/19 11:34: Glucometer 220H 03/10/19 15:16: Glucometer 196H 03/10/19 20:02: Glucometer 96 03/11/19 05:12: Glucometer 206H 03/11/19 11:41: Glucometer 224H 03/11/19 16:32: Glucometer 147H 03/11/19 20:54: Glucometer 107 03/12/19 06:34: Glucometer 212H 03/12/19 11:58: Glucometer 216H 03/12/19 17:03: Glucometer 122H 03/12/19 20:20: Glucometer 84 03/13/19 06:36: Glucometer 208H 03/13/19 11:42: Glucometer 207H 03/13/19 13:47: Glucometer 140H 03/13/19 14:33: Glucometer 133H 03/13/19 16:47: Glucometer 142H 03/13/19 20:29: Glucometer 144H 03/14/19 06:31: Glucometer 223H 03/14/19 10:56: Glucometer 173H Pending Labs Laboratory Tests 03/09/19 18:14: Glucometer 185 03/09/19 20:32: Glucometer 237 03/10/19 05:37: Glucometer 215 03/10/19 05:42: White Blood Count 6.9, Red Blood Count 4.41, Hemoglobin 13.6, Hematocrit 40, Mean Corpuscular Volume 91, Mean Corpuscular Hemoglobin 31, Mean Corpuscular Hemoglobin Concent 34, Red Cell Distribution Width 12.3, Platelet Count 278, Mean Platelet Volume 9.5, Neutrophils (%) (Auto) 54, Lymphocytes (%) (Auto) 31, Monocytes (%) (Auto) 11, Eosinophils (%) (Auto) 4, Basophils (%) (Auto) 0, Neutrophils # (Auto) 3.7, Lymphocytes # (Auto) 2.1, Monocytes # (Auto) 0.8, Eosinophils # (Auto) 0.3, Basophils # (Auto) 0.0, Sodium Level 140, Potassium Level 3.9, Chloride Level 103, Carbon Dioxide Level 25, Anion Gap 12, Blood Urea Nitrogen 13, Creatinine 1.02, Estimat Glomerular Filtration Rate > 60, BUN/Creatinine Ratio 13, Glucose Level 224, Calcium Level 8.9, Corrected Calcium 9.5, Total Bilirubin 0.3, Aspartate Amino Transf (AST/SGOT) 68, Alanine Aminotransferase (ALT/SGPT) 91, Alkaline Phosphatase 69, Total Protein 6.6, Albumin 3.3 03/10/19 11:34: Glucometer 220 03/10/19 15:16: Glucometer 196 03/10/19 20:02: Glucometer 96 03/11/19 05:12: Glucometer 206 03/11/19 11:41: Glucometer 224 03/11/19 16:32: Glucometer 147 03/11/19 20:54: Glucometer 107 03/12/19 06:34: Glucometer 212 03/12/19 11:58: Glucometer 216 03/12/19 17:03: Glucometer 122 03/12/19 20:20: Glucometer 84 03/13/19 06:36: Glucometer 208 03/13/19 11:42: Glucometer 207 03/13/19 13:47: Glucometer 140 03/13/19 14:33: Glucometer 133 03/13/19 16:47: Glucometer 142 03/13/19 20:29: Glucometer 144 03/14/19 06:31: Glucometer 223 03/14/19 10:56: Glucometer 173 Discharge Home Medications: Active Scripts Active Healthwise Insulin Syringe (Syring-Needl,Disp,Insul,0.3 ml) 1 Each Disp.syrin Each MC ACHS Levemir (Insulin Determir) 1,000 Units/10 Ml Soln 30 Unit SQ HS Novolog (Insulin Aspart) 100 Unit/1 Ml Susp 12 Unit SC AC Levetiracetam 500 Mg Tablet 500 Mg PO BID Aspirin EC (Aspirin) 81 Mg Tablet.dr 81 Mg PO DAILY Alprazolam 0.5 Mg Tablet 0.5 Mg PO DAILY PRN Reported Tramadol HCl 50 Mg Tablet 50 Mg PO TID PRN Atorvastatin Calcium 20 Mg Tablet 20 Mg PO HS Omeprazole 20 Mg Capsule.dr 20 Mg PO DAILY Gabapentin 800 Mg Tablet 800 Mg PO TID Celexa (Citalopram Hydrobromide) 40 Mg Tablet 40 Mg PO DAILY Trazodone HCl 100 Mg Tablet 100 Mg PO HS PRN Instructions to patient/family Please see electronic discharge instructions given to patient. Diagnosis/Problems Diagnosis/Problems (1) Cryptogenic stroke (2) Hx of diabetes with ketoacidosis (3) Hemianopia of right eye (4) Occipital stroke (5) Metabolic acidosis (6) Poorly controlled type 1 diabetes mellitus (7) Seizure disorder (8) Diabetic retinopathy (9) Renal stones (10) Gout (11) Arthritis (12) Smoker (13) Marijuana use (14) Scleritis (15) Depression (16) Hx of respiratory failure (17) History of ventilator dependency (18) Metabolic encephalopathy (19) Status post placement of implantable loop recorder (20) Hyperlipemia (21) GERD (gastroesophageal reflux disease) (22) Neuropathy (23) S/P transesophageal echocardiogram (TRINA) (24) Right sided weakness Clinical Quality Measures DVT/VTE Risk/Contraindication: Risk Factor Score Per Nursin RFS Level Per Nursing on Admit: 2=Moderate ALLAN ALLEN DO Mar 14, 2019 11:05
--- NOTE | 2019-03-14 11:09 | Physical Therapy Daily Note ---
PT Daily Note-Current Subjective Patient in chair pre tx, agrees to PT, has no complaints of pain. Patient is set to discharge this afternoon. Appearance Patient in chair post tx in common area of rehab Mental Status Patient Orientation: Normal For Age Transfers SCALE: Activities may be completed with or without assistive devices. 8-Cjmoslyltc-doqgzuk completes the activity by him/herself with no assistance from a helper. 5-Set-up or Clean-up Assistance-helper sets up or cleans up; patient completes activity. [place] assists only prior to or following the activity. 4-Supervision or Touching Assistance-helper provides verbal cues and/or touching/steadying and/or contact guard assistance as patient completes activity. Assistance may be provided throughout the activity or intermittently. 3-Partial/Moderate Assistance-helper does LESS THAN HALF the effort. [place] lifts, holds or supports trunk or limbs, but provides less than half the effort. 2-Substantial/Maximal Assistance-helper does MORE THAN HALF the effort. [place] lifts or holds trunk or limbs and provides more than half the effort. 7-Jgxlphzxg-bagxof does ALL the effort. Patient does none of the effort to complete the activity. Or, the assistance of 2 or more helpers is required for the patient to complete the activity. If activity was not attempted, code reason: 7-Patient Refused. 9-Not Applicable-not attempted and the patient did not perform the activity before the current illness, exacerbation or injury. 10-Not Attempted due to Environmental Limitations-(lack of equipment, weather restraints, etc.). 88-Not Attempted due to Medical Conditions or Safety Concerns. Sit to Stand (QC): 6 Chair/Tfa-nk-Ntnma Xfer(QC): 6 Car Transfer (QC): 6 Gait Training Walking 10ft/uneven surface-QC: 4 Gait Assistive Device: None SBA Balance Picking up an Object (QC): 4 (SBA) Treatments car transfers, picking up object from the floor, walking over uneven surface Assessment Current Status: Fair Progress improved ambulation and general mobility PT Short Term Goals Short Term Goals Time Frame: Mar 17, 2019 Roll Left & Right: 6 Sit to lyin Lying to sitting on side of be: 6 Sit to stand: 6 Chair/evd-wc-gqyvn transfer: 5 Walk 10 feet: 5 Walk 50 feet with two turns: 5 Walk 150 feet: 5 Walking 10ft on uneven surface: 4 PT Air Traffic Control Specialist Goals Alf Goals PT Air Traffic Control Specialist Goals Time Frame: Mar 31, 2019 Roll Left & Right (QC): 6 Sit to Lying (QC): 6 Lying-Sitting on Side/Bed(QC): 6 Sit to Stand (QC): 6 Chair/Brr-nm-Jpizl Xfer(QC): 6 Toilet Transfer (QC): 6 Car Transfer (QC): 6 Walk 10 feet (QC): 6 Walk 50ft with 2 Turns (QC): 6 Walk 150 ft (QC): 6 Walking 10ft on Uneven Surface: 6 1 Step (curb) (QC): 6 4 Steps (QC): 6 12 Steps (QC): 6 Picking up an Object (QC): 6 PT Plan Problem List Problem List: Activity Tolerance, Functional Strength, Safety, Balance, Gait, Transfer Treatment/Plan Treatment Plan: Discontinue PT Treatment Plan: Education, Functional Activity [place], Functional Strength, Group Therapy, Gait, Safety, Therapeutic Exercise, Transfers Treatment Duration: Mar 31, 2019 Frequency: At least 5 of 7 days/Wk (IRF) Estimated Hrs Per Day: 1.5 hours per day Patient and/or Family Agrees t: Yes Safety Risks/Education Patient Education: Gait Training, Transfer Techniques, Correct Positioning, Safety Issues Teaching Recipient: Patient Teaching Methods: Demonstration, Discussion Response to Teaching: Reinforcement Needed Time/GCodes Time In: 1100 Time Out: 1110 Total Billed Treatment Time: 10 Total Billed Treatment 1 visit FA ISAI [place] PT Mar 14, 2019 11:09
--- NOTE | 2019-03-14 11:15 | Therapy Team Discharge Summary ---
Therapy Discharge Summary Discharge Recommendations Date of Discharge Physical Therapy Patient came to rehab following a CVA. Upon evaluation patient performed bed mobility with independence, supine <-> sit with independence, sit <-> stand with SBA, transfers with SBA, car transfer with SBA, ambulated 200' without an assistive device with SBA (including 50' with at least 2 turns of 90 degrees but needs CGA going 10' over an uneven surface), and went up and down 4 steps using 1 handrail with SBA. Patient has been performing bed mobility and transfer training, balance and endurance training, functional strengthening, stair training, gait training, and education. Patient has made good progress and has met all of his watermelon inspector goals except for stairs. Now, patient performs bed mobility and transfers with independence, car transfer with independence, ambulates 1000' without an assistive device with independence (including 50' with at least 2 turns of 90 degrees but needs SBA for uneven surface), can hand picker an object from the floor with SBA, and can go up and down 24 steps using 1 handrail with SBA. Patient is being discharged from this facility today and will be discharged from PT at this time. Occupational Therapy Decreased Activ Tolerance, Visual-Perceptual Deficit PT Computer System Validation Specialist Goals [facility] Goals PT Computer System Validation Specialist Goals Time Frame: Mar 31, 2019 Roll Left to Right (QC): 6 Sit to Lying (QC): 6 Lying-Sitting on Side/Bed(QC): 6 Sit to Stand (QC): 6 Chair/Ptq-po-Rqgpz Xfer(QC): 6 Car Transfer (QC): 6 Walk 10 feet (QC): 6 Walk 10ft-Uneven Surface(QC): 6 Walk 50ft with 2 Turns (QC): 6 Walk 150 ft (QC): 6 1 Step (curb) (QC): 6 4 Steps (QC): 6 12 Steps (QC): 6 Picking up an Object (QC): 6 OT Computer System Validation Specialist Goals [facility] Goals Time Frame: Mar 17, 2019 Eating (QC): 6 Oral Hygiene (QC): 6 Shower/Bathe Self (QC): 6 Upper Body Dressing (QC): 6 Lower Body Dressing (QC): 6 On/Off Footwear (QC): 6 Toileting Hygiene (QC): 6 Toilet/Commode Transfer (QC): 6 Additional Goals: 1-Demonstrate ADL Tasks, 2-Verbalize Understanding, 3- ImproveStrength/[place] 1=Demonstrate adherence to instructed precautions during ADL tasks. 2=Patient will verbalize/demonstrate understanding of assistive devices/modifications for ADL. 3=Patient will improve strength/tolerance for activity to enable patient to perform ADL's. Speech Computer System Validation Specialist Goals [facility] Goals Patient will improve cognitive-communication necessary for safety and daily living tasks with minimal assistance. ISAI PFEIFFER PT Mar 14, 2019 11:14
[2019-03-14] MEDS: ALPRAZolam 0.25 MG (XANAX) TAB PO PRN (11:21)
--- NOTE | 2019-03-14 11:51 | Occupational Ther Daily Note ---
OT Current Status-Daily Note Subjective No pain reported. Appearance Pt. up in room ad tobias. Agrees to work with OT. Mental Status/Objective Patient Orientation: Person, Place, Time, Situation (6) ADL-Treatment Therapy Code Descriptions/Definitions Functional [place] Measure: 0=Not Assessed/NA 4=Minimal Assistance 1=Total Assistance 5=Supervision or Setup 2=Maximal Assistance 6=Modified [place] 3=Moderate Assistance 7=Complete IndependenceSCALE: Activities may be completed with or without assistive devices. 0-Mikzmqnnns-essskhx completes the activity by him/herself with no assistance from a helper. 5-Set-up or Clean-up Assistance-helper sets up or cleans up; patient completes activity. [place] assists only prior to or following the activity. 4-Supervision or Touching Assistance-helper provides verbal cues and/or touching/steadying and/or contact guard assistance as patient completes activity. Assistance may be provided throughout the activity or intermittently. 3-Partial/Moderate Assistance-helper does LESS THAN HALF the effort. [place] lifts, holds or supports trunk or limbs, but provides less than half the effort. 2-Substantial/Maximal Assistance-helper does MORE THAN HALF the effort. [place] lifts or holds trunk or limbs and provides more than half the effort. 7-Wahohqgya-hjauip does ALL the effort. Patient does none of the effort to complete the activity. Or, the assistance of 2 or more helpers is required for the patient to complete the activity. If activity was not attempted, code reason: 7-Patient Refused. 9-Not Applicable-not attempted and the patient did not perform the activity before the current illness, exacerbation or injury. 10-Not Attempted due to Environmental Limitations-(lack of equipment, weather restraints, etc.). 88-Not Attempted due to Medical Conditions or Safety Concerns. Eating (QC): 6 Oral Hygiene (QC): 6 Shower/Bathe Self (QC): 6 Upper Body Dressing (QC): 6 Lower Body Dressing (QC): 6 On/Off Footwear: 6 Toileting Hygiene (QC): 6 Toilet Transfer (QC): 6 Toileting (6) Other Treatment Pt. reports that he showered yesterday on his own. Completed dressing on his own. Pt. taking himself to bathroom, toileting on his own, etc. Pt. has met all ADL goals at this time. Pt. ambulated to therapy gym with OT. Completed arm bike x 10 minutes at moderate resistance to increase overall strength and endurance. Completed series of fine motor and visual perceptual tasks to improve coordination and visual awareness. Pt. able to perform each task given to him, but reports that he feels "slow." Pt. given list of activities that he can perform at home for continued strengthening and coordination. Tasks also included bilateral hand activities, fine motor activities, and reactive processing activities. Pt. encouraged to continue following up with eye regarding visual changes due to CVA. However, does report that he feels his vision has improved overall. Pt. is discharging this date with family support. 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 2=Patient will verbalize/demonstrate understanding of assistive devices/modifications for ADL. 3=Patient will improve strength/tolerance for activity to enable patient to perform ADL's. OT Education/Plan Problem List/Assessment Assessment: Decreased Activ Tolerance, Impaired Coordination Discharge Recommendations Plan/Recommendations: Follow-up Planned Therapy Discharge Recommendati: Post Acute OT Treatment Plan/Plan of Care Treatment,Training & Education: Yes Patient would benefit from OT for education, treatment and training to promote independence in ADL's, mobility, safety and/or upper extremity function for ADL's. Plan of Care: UE Funct Exercise/Act, UE Neuromus Re-Ed/Coord, Visual/Perceptual Retrain Treatment Duration: Mar 17, 2019 Frequency: At least 5 of 7 days/Wk (IRF) Estimated Hrs Per Day: 1.5 hours per day Agreement: Yes Rehab Potential: Good Time/GCodes Start Time: 09:00 Stop Time: 10:15 Total Time Billed (hr/min): 75 Billed Treatment Time 1, Ex x 15minutes, FA x 60minutes LESLY GRAY OT Mar 14, 2019 11:50
--- NOTE | 2019-03-14 12:57 | Therapy Team Discharge Summary ---
Therapy Discharge Summary Discharge Recommendations Date of Discharge 03-14-19 Therapy D/C Recommendations: Home w/ Family Support, Occupational Therapy Outpatient Occupational Therapy Pt. has been seen for occupational therapy to increase overall strength and independence with ADL skills. Pt. has met all goals with ADLs. Does continue to experience right sided visual field cut, as well as weakness and decreased coordination in right hand. Pt. has been educated on home program, but is also encouraged to continue with outpt occupational therapy for coordination and strengthening, as well as follow up with eye DrKavita for visual issues. Pt. verbalizes understanding of this. Pt. would like a cane at discharge for balance, but otherwise will not need equipment. Impaired Coordination, Visual-Perceptual Deficit PT Usp Goals Usp Goals PT Usp Goals Time Frame: Mar 31, 2019 Roll Left to Right (QC): 6 Sit to Lying (QC): 6 Lying-Sitting on Side/Bed(QC): 6 Sit to Stand (QC): 6 Chair/Szl-xc-Pcpwu Xfer(QC): 6 Car Transfer (QC): 6 Walk 10 feet (QC): 6 Walk 10ft-Uneven Surface(QC): 6 Walk 50ft with 2 Turns (QC): 6 Walk 150 ft (QC): 6 1 Step (curb) (QC): 6 4 Steps (QC): 6 12 Steps (QC): 6 Picking up an Object (QC): 6 OT Hardwood Sawyer Goals Hardwood Sawyer Goals Time Frame: Mar 17, 2019 Eating (QC): 6 (met) Oral Hygiene (QC): 6 (met) Shower/Bathe Self (QC): 6 (met) Upper Body Dressing (QC): 6 (met) Lower Body Dressing (QC): 6 (met) On/Off Footwear (QC): 6 (met) Toileting Hygiene (QC): 6 (met) Toilet/Commode Transfer (QC): 6 (met) Additional Goals: 1-Demonstrate ADL Tasks, 2-Verbalize Understanding, 3- ImproveStrength/Marino 1=Demonstrate adherence to instructed precautions during ADL tasks. 2=Patient will verbalize/demonstrate understanding of assistive devices/modifications for ADL. 3=Patient will improve strength/tolerance for activity to enable patient to perform ADL's. Speech Hardwood Sawyer Goals Hardwood Sawyer Goals Patient will improve cognitive-communication necessary for safety and daily living tasks with minimal assistance. LESLY GRAY OT Mar 14, 2019 12:57
--- NOTE | 2019-03-14 12:59 | NUR ---
CM/SS DISCHARGE Patient discharged to home with his spouse/family as planned. DME: Patient is ambulating independently with therapy. He does desire a cane for outdoor use, patient and spouse both understand this is not an insurance covered item. They indicate they will explore this item on their own. Patient is pleased to be discharging and believes this is important to his mental health, to return to his home and family. No new psychosocial or discharge needs identified. Unit RN has coordinated a followup appointment with PCP AREN MARTINEZ in [facility]. [employer] faxed Discharge Summary for continuity of care.
--- NOTE | 2019-03-14 15:46 | Speech Therapy Daily Note ---
Speech Daily Progress Note Subjective Date Seen by Provider: Mar 14, 2019 Time Seen by Provider: 00:10 Patient was alert and cooperative for all therapy tasks. Patient was sitting in the rehab unit sitting area preparing for his discharge home from the ARU. Patient reported being excited and relieved to be returning home. Objective Patient completed safety awareness tasks pertaining to his return home with 90% with minimal cues. Patient completed memory and word finding tasks pertaining to strategies he could use at home with 90% with minimal cues. Assessment Assessment Current Status: Excellent Progress Treatment Plan Discontinue ST, Goals Met Speech Short Term Goals Short Term Goals Short Term Goals 1. Patient will complete memory tasks with 90% or greater accuracy with minimal cues. 2. Patient will complete problem solving tasks with 90% or greater accuracy with minimal cues. 3. Patient will complete safety awareness tasks with 90% or greater accuracy with minimal cues. 4. Patient will complete word finding tasks with 90% or greater accuracy with minimal cues. Speech Skilled Nursing Goals Skilled Nursing Goals Patient will improve cognitive-communication necessary for safety and daily living tasks with minimal assistance. Speech-Plan Patient/Family Goals Patient/Family Goals: Patient discharged today to his home with family. Treatment Plan Speech Therapy Treatment Plan: Discontinue ST, Goals Met Treatment Duration: Mar 18, 2019 Frequency: 5 times per week Estimated Hrs Per Day: .5 hour per day Rehab Potential: Good Barriers to Learning: Patient initially exhibited affects from his recent CVA with cognitive function, however these fully resolved Pt/Family Agrees to Plan: Yes Safety Risks/Education Teaching Recipient: Patient, Significant Other Teaching Methods: Demonstration, Discussion Response to Teaching: Verbalize Understanding, Return Demonstration Education Topics Provided: Continued safety upon his return home Time Speech Therapy Time In: 14:30 Speech Therapy Time Out: 14:40 Total Billed Time: 10 Billed Treatment Time 1, SLTS No QUALITY CODES: EXPRESSION OF WANTS/NEEDS:4 UNDERSTANDING OF VERBAL CONTENT: 4 BRIEF INTERVIEW OF MENTAL STATUS: YES REPETITION OF 3 WORDS: 3 ORIENTATION OF YEAR: CORRECT, MONTH: CORRECT, DAY: CORRECT RECALL OF SOCK: YES, COLOR: YES, BED: YES MEMORY ABILITY: SEASON, LOCATION OF ROOM, STAFF NAMES, THAT HE IS IN THE HOSPITAL CHELSEA WATTS Mar 14, 2019 15:46
--- NOTE | 2019-03-15 08:41 | Therapy Team Discharge Summary ---
Therapy Discharge Summary Discharge Recommendations Date of Discharge Mar 14, 2019 at 15:15 Therapy D/C Recommendations: Home w/ Family Support, Occupational Therapy Outpatient Occupational Therapy Impaired Coordination, Visual-Perceptual Deficit Speech-Language Pathology Patient was admitted to the ARU s/p CVA. Patient received skilled ST for cognitive and aphasia. Patient progressed well and met all ST goals. Patient was discharged to his home with family on 03/14/2019. Patient was discharged from skilled ST at that time. PT [employer] Artistic Director Goals [employer] Artistic Director Goals PT Care Home Goals Time Frame: Mar 31, 2019 Roll Left to Right (QC): 6 Sit to Lying (QC): 6 Lying-Sitting on Side/Bed(QC): 6 Sit to Stand (QC): 6 Chair/Fvc-tz-Encgx Xfer(QC): 6 Car Transfer (QC): 6 Walk 10 feet (QC): 6 Walk 10ft-Uneven Surface(QC): 6 Walk 50ft with 2 Turns (QC): 6 Walk 150 ft (QC): 6 1 Step (curb) (QC): 6 4 Steps (QC): 6 12 Steps (QC): 6 Picking up an Object (QC): 6 OT [employer] Artistic Director Goals Care Home Goals Time Frame: Mar 17, 2019 Eating (QC): 6 (met) Oral Hygiene (QC): 6 (met) Shower/Bathe Self (QC): 6 (met) Upper Body Dressing (QC): 6 (met) Lower Body Dressing (QC): 6 (met) On/Off Footwear (QC): 6 (met) Toileting Hygiene (QC): 6 (met) Toilet/Commode Transfer (QC): 6 (met) Additional Goals: 1-Demonstrate ADL Tasks, 2-Verbalize Understanding, 3-ImproveStrength/Marino 1=Demonstrate adherence to instructed precautions during ADL tasks. 2=Patient will verbalize/demonstrate understanding of assistive devices/modifications for ADL. 3=Patient will improve strength/tolerance for activity to enable patient to perf orm ADL's. Speech Care Home Goals [employer] Artistic Director Goals Patient will improve cognitive-communication necessary for safety and daily living tasks with minimal assistance. Met CHELSEA WATTS Mar 15, 2019 08:41
== END 2019-03-14 15:15 | disposition home or self-care (01) | DRG 57 ==
PROVIDERS: ADMIT Internal Medicine; ATTEND Internal Medicine
DX: I69.351 Hemiplegia and hemiparesis following cerebral infarction affecting right dominant side (principal); I69.398 Other sequelae of cerebral infarction; H53.47 Heteronymous bilateral field defects; H15.002 Unspecified scleritis, left eye; E10.65 Type 1 diabetes mellitus with hyperglycemia; E10.42 Type 1 diabetes mellitus with diabetic polyneuropathy; E10.319 Type 1 diabetes mellitus with unspecified diabetic retinopathy without macular edema; F17.200 Nicotine dependence, unspecified, uncomplicated; M19.91 Primary osteoarthritis, unspecified site; F41.9 Anxiety disorder, unspecified; F32.9 Major depressive disorder, single episode, unspecified; E78.5 Hyperlipidemia, unspecified; K21.9 Gastro-esophageal reflux disease without esophagitis; Z79.4 Long term (current) use of insulin; Z91.14 Patient's other noncompliance with medication regimen; Z87.09 Personal history of other diseases of the respiratory system; Z90.49 Acquired absence of other specified parts of digestive tract; Z90.89 Acquired absence of other organs
CPT/HCPCS: 36415; 80053; 82962; 85025

== ENCOUNTER 2019-04-25 20:54 | Emergency (ER) | payer OTHER ==
[~2019-04-25] VITALS: Ht 177.8 cm; Wt 95.4 kg
[~2019-04-25 20:54] MED LIST changes: +ASPI-983 PO; +ATOR20TA66 PO; +ATOR40TA PO; +GABA800T10 PO; +INSU100I10 SQ; +INSU100V16 SC; +INSU100V5 SQ; +LEVE500T6 PO; +NICO-588 TD; +NICO4GUM BC; +OMEP20CA18 PO; -TRAZ-190 PO; +TRAZ-227 PO; +[UNRECOGNIZED DRUG - CODE] MC
--- NOTE | 2019-04-25 20:55 | NUR ---
PT. ALSO C/O A ELI.
[2019-04-25] MEDS ORDERED: ONDANSETRON 4 MG/2 ML (SDV) Z0FRAN IVP STA (21:08)
[2019-04-25] MEDS ORDERED: fentaNYL INJECTION 100 MCG/2 ML AMP IVP STA (21:08)
[2019-04-25] MEDS ORDERED: NS IV 1000 ML 1,000 ML IV STA (21:08)
[2019-04-25 21:15] LABS: BASOPHILS % (AUTO) 1 % (0-10); EOSINOPHILS % (AUTO) 2 % (0-10); HEMATOCRIT 40 % (40-54); HEMOGLOBIN 14.3 G/DL (13.3-17.7); LYMPHOCYTES % (AUTO) 14 % (12-44); MEAN CORPUSCULAR HEMOGLOBIN 32 PG (25-34); MEAN CORPUSCULAR HGB CONC 36 G/DL (32-36); MEAN CORPUSCULAR VOLUME 89 FL (80-99); MEAN PLATELET VOLUME 9.3 FL (7.4-10.4); MONOCYTES % (AUTO) 10 % (0-12); NEUTROPHILS % (AUTO) 73 % (42-75); PLATELET COUNT 248 10^3/uL (130-400); RED CELL DISTRIBUTION WIDTH 12.2 % (10.0-14.5); WHITE BLOOD COUNT 10.6 10^3/uL (4.3-11.0)
[2019-04-25 21:16] LABS: BASOPHILS # (AUTO) 0.1 10^3/uL (0.0-0.1); EOSINOPHILS # (AUTO) 0.2 10^3/uL (0.0-0.3); LYMPHOCYTES # (AUTO) 1.5 X 10^3 (1.0-4.0); MONOCYTES # (AUTO) 1.1 X 10^3 (0.0-1.0); NEUTROPHILS # (AUTO) 7.8 X 10^3 (1.8-7.8)
--- NOTE | 2019-04-25 21:18 | ED General ---
General Chief Complaint: Chest Pain Stated Complaint: BLOOD PRESSURE LOW,CHEST PAINS Source of Information: Patient History of Present Illness Date Seen by Provider: Apr 25, 2019 Time Seen by Provider: 20:55 Initial Comments 44-year-old male presenting with complaints of low blood pressure, not feeling well for a few days, 45 minutes of chest pressure like somebody standing on his chest. He denies any sweating or nausea. He has history of recent occipital stroke in March. 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 He was seen at [facility] for that. He follows locally with Fany Walter through [facility]. He had been having trouble with his blood pressure recently and had actually stopped his blood pressure medications over the weekend because his blood pressures were too low. Tonight he was helping make supper for family and started to feel more lightheaded and weak. He also was having chest pressure at that time. He had taken his blood pressure and it was low. When he tried to stand up to go the bathroom he felt like he was given a pass out and his blood pressure dropped to 54 systolic. His brought him here to the emergency department. He denies having any cough or congestion. He's had no diarrhea or vomiting. He now also was complaining of a right frontal headache. Allergies and Home Medications Allergies Coded Allergies: Charly Known Allergies (Verified Allergy, Unknown, 05/19/05) Home Medications Alprazolam 0.5 Mg Tablet, 0.5 MG PO DAILY PRN for ANXIETY Prescribed by: ALLAN ALLEN on 03/14/191104 Aspirin 81 Mg Tablet.dr 81 MG PO DAILY Prescribed by: ALLAN ALLEN on 03/14/191104 Atorvastatin Calcium 20 Mg Tablet, 20 MG PO HS, (Reported) Citalopram Hydrobromide 40 Mg Tablet, 40 MG PO DAILY, (Reported) Gabapentin 800 Mg Tablet, 800 MG PO TID, (Reported) Insulin Aspart 100 Unit/1 Ml Susp, 12 UNIT SC AC Prescribed by: ALLAN ALLEN on 03/14/191104 Insulin Determir 1,000 Units/10 Ml Soln, 30 UNIT SQ HS Prescribed by: ALLAN ALLEN on 03/14/191104 Levetiracetam 500 Mg Tablet, 500 MG PO BID Prescribed by: ALLAN ALLEN on 1/13/20 1105 Omeprazole 20 Mg Capsule.dr, 20 MG PO DAILY, (Reported) Tramadol HCl 50 Mg Tablet, 50 MG PO TID PRN for PAIN-MODERATE (5-7), (Reported) Trazodone HCl 100 Mg Tablet, 100 MG PO HS PRN for SLEEP, (Reported) Patient Home Medication List Home Medication List Reviewed: Yes Review of Systems Review of Systems Constitutional: No chills; dizziness; No fever; malaise, weakness (general) EENTM: No ear discharge, No ear pain, No blurred vision, No double vision, No vision loss, No epistaxis, No nose congestion Respiratory: No cough, No short of breath Cardiovascular: chest pain (pressure like someone is standing in the middle of his chest); No edema, No palpitations, No syncope (near syncope when he stands up) Gastrointestinal: No abdominal pain, No diarrhea, No nausea, No vomiting Genitourinary: No dysuria, No frequency, No pain Musculoskeletal: no symptoms reported Skin: No rash Psychiatric/Neurological: Headache (right frontal started tonight when he felt bad and had low blood pressure); Denies Numbness, Denies Paresthesia; Weakness (generalized) Hematologic/Lymphatic: No Symptoms Reported Past Ybmxiyo-Wcstgb-Vajxnv Hx Past Med/Social Hx: Reviewed Nursing Past Med/Soc Hx Patient Social History Alcohol Beverage of Choice: Beer Type Used: Cigarettes Recent Foreign Travel: No Contact w/Someone Who Travel: No Recent Hopitalizations: Yes (ku for cva 1-20) Immunizations Up To Date PED Vaccines UTD: Yes Date of Pneumonia Vaccine: Mar 04, 2019 Date of Influenza Vaccine: Mar 04, 2019 Seasonal Allergies Seasonal Allergies: No Past Medical History Surgeries: Yes (BILAT ING HERNIA, ESS, ) Abdominal, Adenoidectomy, Appendectomy, Tonsillectomy Respiratory: No Chronic Bronchitis Currently Using CPAP: No Currently Using BIPAP: No Cardiac: Yes (BP MEDICATIONS IN THE PAST-NOT CURRENTLY) Neurological: Yes Neuropathy, Stroke Genitourinary: Yes Kidney Stones Gastrointestinal: No (HX OF PANCREATISIS) Pancreatitis Musculoskeletal: Yes Arthritis Endocrine: Yes Diabetes, Insulin dep HEENT: Yes (LEFT EYE SCLERITIS, RIGHT LOSS PERIPHERALVISION AND DEPTH PERCEPTION) Loss of Vision: Right Hearing Impairment: Denies Cancer: No Psychosocial: Yes Sleep Difficulties, Anxiety, Depression Integumentary: No Blood Disorders: No Family Medical History Colon cancer MATERNAL GRANDFATHER Completed stroke 19 FATHER Deafness or hearing loss 19 FATHER Diabetes mellitus 19 MOTHER (MOM, BROTHER, AUNTS) Gastroenteritis 19 MOTHER Hypercholesterolemia 19 FATHER Hypertension 19 FATHER 19 MOTHER Neoplasm PATERNAL GRANDFATHER (STOMACH) MATERNAL GRANDFATHER (COLON) Psychosocial problem 19 MOTHER Seizure disorder 19 FATHER Physical Exam Vital Signs Vital Signs - First Documented 04/25/19 20:55 Temp 36.3 Pulse 115 Resp 15 B/P (MAP) 116/82 (93) Pulse Ox 97 O2 Delivery Room Air O2 Flow Rate 2.0 Capillary Refill : Height, Weight, BMI Height: 5'10.00" Weight: 185lbs. 2.0oz. 83.300499io; 25.68 BMI Method: General Appearance: WD/WN, Mild Distress HEENT: PERRL/EOMI, Pharynx Normal Neck: Full Range of Motion, Non Tender, Supple Respiratory: Chest Non Tender, Lungs Clear, Normal Breath Sounds Cardiovascular: Normal Peripheral Pulses, Tachycardia Gastrointestinal: Normal Bowel Sounds, No Pulsatile Mass, Non Tender, Soft Extremity: Normal Capillary Refill, Normal Inspection, No Pedal Edema Neurologic/Psychiatric: Alert, Oriented x3 Skin: Normal Color, Warm/Dry Procedures/Interventions Date of ETT Placement: Mar 02, 2019 Time of ETT Placement: 319 Progress/Results/Core Measures Suspected Sepsis SIRS Temperature: Pulse: Respiratory Rate: Laboratory Tests 04/25/19 21:03: White Blood Count 10.6 Blood Pressure / Mean: Laboratory Tests 04/25/19 21:03: Creatinine 1.08, INR Comment 0.9, Platelet Count 248, Total Bilirubin 0.4 Results/Orders Lab Results Laboratory Tests Test 04/25/19 21:03 Range/Units White Blood Count 10.6 4.3-11.0 10^3/uL Red Blood Count 4.50 4.35-5.85 10^6/uL Hemoglobin 14.3 13.3-17.7 G/DL Hematocrit 40 40-54 % Mean Corpuscular Volume 89 80-99 FL Mean Corpuscular Hemoglobin 32 25-34 PG Mean Corpuscular Hemoglobin Concent 36 32-36 G/DL Red Cell Distribution Width 12.2 10.0-14.5 % Platelet Count 248 130-400 10^3/uL Mean Platelet Volume 9.3 7.4-10.4 FL Neutrophils (%) (Auto) 73 42-75 % Lymphocytes (%) (Auto) 14 12-44 % Monocytes (%) (Auto) 10 0-12 % Eosinophils (%) (Auto) 2 0-10 % Basophils (%) (Auto) 1 0-10 % Neutrophils # (Auto) 7.8 1.8-7.8 X 10^3 Lymphocytes # (Auto) 1.5 1.0-4.0 X 10^3 Monocytes # (Auto) 1.1 H 0.0-1.0 X 10^3 Eosinophils # (Auto) 0.2 0.0-0.3 10^3/uL Basophils # (Auto) 0.1 0.0-0.1 10^3/uL Prothrombin Time 12.5 12.2-14.7 SEC INR Comment 0.9 0.8-1.4 Activated Partial Thromboplast Time 29 24-35 SEC Sodium Level 141 135-145 MMOL/L Potassium Level 4.2 3.6-5.0 MMOL/L Chloride Level 104 98-107 MMOL/L Carbon Dioxide Level 26 21-32 MMOL/L Anion Gap 11 5-14 MMOL/L Blood Urea Nitrogen 28 H 7-18 MG/DL Creatinine 1.08 0.60-1.30 MG/DL Estimat Glomerular Filtration Rate > 60 BUN/Creatinine Ratio 26 Glucose Level 121 H 70-105 MG/DL Calcium Level 9.3 8.5-10.1 MG/DL Corrected Calcium 9.4 8.5-10.1 MG/DL Magnesium Level 1.6 1.6-2.4 MG/DL Total Bilirubin 0.4 0.1-1.0 MG/DL Aspartate Amino Transf (AST/SGOT) 18 5-34 U/L Alanine Aminotransferase (ALT/SGPT) 34 0-55 U/L Alkaline Phosphatase 67 40-136 U/L Troponin I < 0.30 <0.30 NG/ML Pro-B-Type Natriuretic Peptide 83.9 H <75.0 PG/ML Total Protein 7.4 6.4-8.2 GM/DL Albumin 3.9 3.2-4.5 GM/DL Lipase 29 8-78 U/L My Orders Orders - SATISH WAYNE MD Cbc With Automated Diff (04/25/19 21:07) Magnesium (04/25/19 21:07) Chest 1 View Ap/Pa Only (2/24/20 21:07) Ekg Tracing (04/25/19 21:07) Comprehensive Metabolic Panel (04/25/19 21:07) Protime With Inr (04/25/19 21:) Partial Thromboplastin Time (04/25/19 21:07) O2 (04/25/19 21:07) Monitor-Rhythm Ecg Trace Only (04/25/19 21:07) Ed Iv/Invasive Line Start (04/25/19 21:07) Lipase (04/25/19 21:07) Troponin I Fs (04/25/19 21:07) Probnp Fs (04/25/19 21:07) Ct Head Wo (04/25/19 21:07) Ua Culture If Indicated (04/25/19 21:) Ns Iv 1000 Ml (Sodium Chloride 0.9%) (04/25/19 21:08) Ondansetron Injection (Zofran Injectio (04/25/19 21:08) Fentanyl Injection (Sublimaze Injection (04/25/19 21:08) Ns Iv 1000 Ml (Sodium Chloride 0.9%) (04/25/19 22:30) Vital Signs/I&O 04/25/19 04/25/19 04/25/19 04/25/19 20:55 20:55 21:11 22:35 Temp 36.3 36.3 Pulse 115 95 Resp 15 16 B/P (MAP) 116/82 (93) 131/85 Pulse Ox 97 100 65 O2 Delivery Room Air Nasal Cannula Nasal Cannula O2 Flow Rate 2.0 2.00 2.00 04/26/19 00:00 Intake Total 1030 ml Balance 1030 ml Capillary Refill : Progress Note #1: Progress Note check labs and ECG with CXR for his chest pressure. For his headache obtain a CT scan of his head. Fentanyl with zofran for his pain symptoms. IVF for hydration to help with tachycardia and hypotension. Hold off on Aspirin until CT head comes back to ensure he does not have bleeding or recurrent stroke with his headache and variable blood pressure. Progress Note #2: Time: 21:33 Progress Note Labs appear stable without acute significant abnormality. The BUN is slightly elevated to go along with some mild dehydration. The creatinine looks okay at 1.08. His troponin is negative at less than 0.3. His coags are all negative. He does have mild hypomagnesemia at 1.6. His chest x-ray shows no acute process on my review of his [address] No acute [address] elevation on his electrocardiogram. He has no prior tracing available for comparison. Progress Note #3: Time: 21:[address] of his head did show some small areas of intraparenchymal hemorrhage in the left parietal area where he has encephalomalacia from his stroke March 02, 2019. Updated patient and his spouse about the results and they request to go back to [facility] since he was just seen there for his stroke. Discussed with the transfer center and will make arrangements for transfer to . Progress Note #4: Time: 22:19 Progress Note MONTSE aGrcias, from [facility] transfer Center called back and stated that Dr. Moore accepted the patient in transfer to be admitted to the NeuroICU at [facility] and will call back with a room assignment. ECG Initial ECG Impression Date: Apr 25, 2019 Initial ECG Impression Time: 20:55 Initial ECG Rate: 114 Initial ECG Rhythm: S.Tach Comment Sinus tachycardia with heart rate of 114 bpm. MI interval of 151 ms. Early repolarization pattern. Borderline prolonged QT interval with a QT interval 363 ms and a QTc interval of 501 ms. No prior tracing for comparison Diagnostic Imaging Diagonstic Imaging: Xray Plain Films/CT/US/NM/MRI: chest Comments [facility]. [place], [place] NAME: SOMMER [facility]INA [facility] REC#: [id number] PT STATUS: REG ER : 1975 PHYSICIAN: SATISH WAYNE MD ADMIT DATE: 04/25/19/ER FS Signed Date of Exam:04/25/19 CHEST 1 VIEW AP/PA ONLY INDICATION: Chest pain. Comparison is made with prior examination from 03/02/2019. FINDINGS: The heart size, mediastinal configuration, and pulmonary vascularity are within normal limits. There is no pleural effusion, pneumothorax, or pneumonia. The osseous structures are unremarkable. IMPRESSION: No acute cardiopulmonary abnormality. Dictated by: Dictated on workstation # [id number] Dict: 04/25/192131 Trans: 04/25/192135 NORIS [id number] Interpreted by: TIFFANY UREÑA MD Electronically signed by: TIFFANY UREÑA MD 04/25/192135 Diagonstic Imaging: CT Plain Films/CT/US/NM/MRI: head Comments NAME: SOMMER NINA [facility] REC#: [id number] PT STATUS: REG ER : 1975 PHYSICIAN: SATISH WAYNE MD ADMIT DATE: 04/25/19/ER FS Signed Date of Exam:04/25/19 CT HEAD WO PROCEDURE: CT head without contrast. TECHNIQUE: Multiple contiguous axial images were obtained through the brain without the use of intravenous contrast. Auto Exposure Controls were utilized during the CT exam to meet ALARA standards for radiation dose reduction. INDICATION: Headache and hypotension Comparison is made with prior examination from 03/02/2019. FINDINGS: Ventricles and sulci are within normal limits. There is no hydrocephalus. There is no midline shift. There is a small area of encephalomalacia in the left parietal lobe. There are also small areas of intraparenchymal hemorrhage in this region. There is no extra-axial fluid collection. Calvarium is intact. The sinuses and mastoid air cells are clear. IMPRESSION: Small focal area of encephalomalacia in the left parietal lobe compatible with prior CVA. Additionally, in the same region there are multifocal small areas of intraparenchymal hemorrhage. Recommend further evaluation with MRI. No other acute intracranial abnormality Dictated by: Dictated on workstation # [id number] Dict: 04/25/192129 Trans: 04/25/192140 NORIS [id number] Interpreted by: TIFFANY UREÑA MD Electronically signed by: TIFFANY UREÑA MD 04/25/192140 Critical Care Note Critical Care Total Time (minutes) 40 minutes Progress 40 minutes of critical care time was spent in direct care of the patient. Time was spent in obtaining history from patient and family and medical records, ordering tests and reviewing results, ordering interventions and reviewing response, discussion with consultants, discussion with patient and family, documentation of the chart. Patient was at risk for compromise of his neurologic system, Cardiology system. Departure Impression Primary Impression: Intraparenchymal hemorrhage of brain Additional Impressions: Chest pressure Hypotension Qualified Codes: I95.9 - Hypotension, unspecified Dehydration Disposition: ER SHT-TRM HOSP Condition: Critical Transfer Transfer Reason: Exceeds level of care (Needs neurology and neurosurgery) Transfer Progress Notes Dieter RN, from [facility] contacted at [phone] and she called back at [phone] Moore as the accepting provider for the pt to come to the NeuroICU at [facility]. She will call back with bed assignment and for nursing report shortly. Transfer Facility: [facility] Method of Transfer: EMS Departure-Patient Inst. Referrals: SELFOMARI MD (PCP) Primary Care Physician FANY WALTER APRN (Family) Primary Care Physician SATISH WAYNE MD Apr 25, 2019 21:17
[2019-04-25 21:28] LABS: INR 0.9 (0.8-1.4); PROTHROMBIN TIME PATIENT 12.5 SEC (12.2-14.7)
--- NOTE | 2019-04-25 21:35 | Diagnostic Imaging Report ---
INDICATION: Chest pain. Comparison is made with prior examination from 03/02/2019. FINDINGS: The heart size, mediastinal configuration, and pulmonary vascularity are within normal limits. There is no pleural effusion, pneumothorax, or pneumonia. The osseous structures are unremarkable. IMPRESSION: No acute cardiopulmonary abnormality. Dictated by: Dictated on workstation # [id number]
[2019-04-25 21:37] LABS: BUN/CREATININE RATIO 26; CARBON DIOXIDE 26 MMOL/L (21-32); CHLORIDE 104 MMOL/L (98-107); CREATININE SERUM 1.08 MG/DL (0.60-1.30); GFR ESTIMATED > 60; POTASSIUM 4.2 MMOL/L (3.6-5.0); SODIUM 141 MMOL/L (135-145)
--- NOTE | 2019-04-25 21:37 | Diagnostic Imaging Report ---
PROCEDURE: CT head without contrast. TECHNIQUE: Multiple contiguous axial images were obtained through the brain without the use of intravenous contrast. Auto Exposure Controls were utilized during the CT exam to meet ALARA standards for radiation dose reduction. INDICATION: Headache and hypotension Comparison is made with prior examination from 03/02/2019. FINDINGS: Ventricles and sulci are within normal limits. There is no hydrocephalus. There is no midline shift. There is a small area of encephalomalacia in the left parietal lobe. There are also small areas of intraparenchymal hemorrhage in this region. There is no extra-axial fluid collection. Calvarium is intact. The sinuses and mastoid air cells are clear. IMPRESSION: Small focal area of encephalomalacia in the left parietal lobe compatible with prior CVA. Additionally, in the same region there are multifocal small areas of intraparenchymal hemorrhage. Recommend further evaluation with MRI. No other acute intracranial abnormality Dictated by: Dictated on workstation # [id number]
[2019-04-25 21:38] LABS: ALANINE AMINOTRANSFERASE 34 U/L (0-55); ALBUMIN 3.9 GM/DL (3.2-4.5); ALKALINE PHOSPHATASE 67 U/L (40-136); BILIRUBIN,TOTAL 0.4 MG/DL (0.1-1.0); CALCIUM 9.3 MG/DL (8.5-10.1); GLUCOSE 121 MG/DL (70-105); MAGNESIUM 1.6 MG/DL (1.6-2.4); TOTAL PROTEIN 7.4 GM/DL (6.4-8.2)
[2019-04-25 21:39] LABS: LIPASE 29 U/L (8-78)
[2019-04-25] MEDS ORDERED: NS IV 1000 ML 1,000 ML IV SCH (22:30)
[2019-04-25 22:35] VITALS: BP 131/85
== END 2019-04-25 22:45 | disposition short-term general hospital (02) ==
LOC: EDUNIT# 20:54 → ER FS 20:55
DX: I61.9 Nontraumatic intracerebral hemorrhage, unspecified (principal); R07.89 Other chest pain; I95.9 Hypotension, unspecified; E86.0 Dehydration; E11.40 Type 2 diabetes mellitus with diabetic neuropathy, unspecified; I10 Essential (primary) hypertension; F41.9 Anxiety disorder, unspecified; F32.9 Major depressive disorder, single episode, unspecified; Z86.73 Personal history of transient ischemic attack (TIA), and cerebral infarction without residual deficits; Z79.82 Long term (current) use of aspirin; Z79.4 Long term (current) use of insulin; Z80.0 Family history of malignant neoplasm of digestive organs; Z82.49 Family history of ischemic heart disease and other diseases of the circulatory system
CPT/HCPCS: 36415; 70450; 71045; 80053; 83690; 83735; 83880; 84484; 85025; 85610; 85730; 93005; 93041; 96361; 96374; 96375

== ENCOUNTER 2019-12-10 23:08 | Emergency (ER) | payer OTHER ==
[~2019-12-10] VITALS: Ht 177.8 cm; Wt 88.7 kg
[~2019-12-10 23:08] MED LIST changes: +ASPI-1238 PO; -ASPI-983 PO
[2019-12-10] MEDS ORDERED: NS IV 1000 ML 1,000 ML IV SCH (23:52)
[2019-12-10] MEDS ORDERED: MAGNESIUM 1 GM/100 ML IVPB 100 ML IV STA (23:52)
[2019-12-10 23:58] LABS: BASOPHILS % (AUTO) 1 % (0-10); EOSINOPHILS # (AUTO) 0.1 10^3/uL (0.0-0.3); EOSINOPHILS % (AUTO) 2 % (0-10); HEMATOCRIT 39 % (40-54); HEMOGLOBIN 14.1 G/DL (13.3-17.7); LYMPHOCYTES # (AUTO) 1.4 X 10^3 (1.0-4.0); LYMPHOCYTES % (AUTO) 23 % (12-44); MEAN CORPUSCULAR HEMOGLOBIN 31 PG (25-34); MEAN CORPUSCULAR VOLUME 87 FL (80-99); MEAN PLATELET VOLUME 10.3 FL (7.4-10.4); MONOCYTES # (AUTO) 0.5 X 10^3 (0.0-1.0); MONOCYTES % (AUTO) 8 % (0-12); NEUTROPHILS # (AUTO) 4.2 X 10^3 (1.8-7.8); NEUTROPHILS % (AUTO) 66 % (42-75); PLATELET COUNT 231 10^3/uL (130-400); WHITE BLOOD COUNT 6.3 10^3/uL (4.3-11.0)
[2019-12-10 23:59] LABS: MEAN CORPUSCULAR HGB CONC 36 G/DL (32-36)
[2019-12-11] MEDS ORDERED: diphenhydrAMINE 50 MG/ML INJ (BENADRYL) IVP ONE
[2019-12-11] MEDS ORDERED: ACETAMINOPHEN 500 MG TAB (TYLENOL) PO ONE
[2019-12-11] MEDS ORDERED: PROCHLORPERAZINE 10 MG/2ML INJ (COMPAZINE) IV ONE
[2019-12-11 00:15] LABS: BUN/CREATININE RATIO 14; CARBON DIOXIDE 25 MMOL/L (21-32); CHLORIDE 95 MMOL/L (98-107); CREATININE SERUM 1.02 MG/DL (0.60-1.30); GFR ESTIMATED > 60; INR 0.9 (0.8-1.4); PROTHROMBIN TIME PATIENT 12.5 SEC (12.2-14.7); SODIUM 133 MMOL/L (135-145)
[2019-12-11 00:16] LABS: ALANINE AMINOTRANSFERASE 13 U/L (0-55); ALBUMIN 3.3 GM/DL (3.2-4.5); ALKALINE PHOSPHATASE 67 U/L (40-136); BILIRUBIN,TOTAL 0.2 MG/DL (0.1-1.0); CALCIUM 9.2 MG/DL (8.5-10.1); GLUCOSE 601 MG/DL (70-105); TOTAL PROTEIN 6.2 GM/DL (6.4-8.2)
[2019-12-11 00:35] LABS: ABG BASE EXCESS 3.2 MMOL/L (-2.5-2.5); ABG OXYGEN SATURATION 92 % (94-100); ABG PCO2 42 MMHG (35-45); ABG PH 7.43 (7.37-7.43); ABG PO2 61 MMHG (79-93); ABG TCO2 29.2 MMOL/L (21.0-31.0); ALLENS TEST NEGATIVE
[2019-12-11 00:36] LABS: PATIENT TEMP 37.1; VENTILATOR NO
[2019-12-11] MEDS ORDERED: NS IV 1000 ML 1,000 ML IV SCH (00:41)
[2019-12-11] MEDS ORDERED: inSUlin (REGULAR) HUMAN 1 UNIT/0.01 ML (CHARGE PER UNIT) SC ONE ×2 (00:45→02:00)
[2019-12-11] MEDS ORDERED: KETOROLAC 30 MG/ML VIAL IVP ONE (01:15)
--- NOTE | 2019-12-11 01:23 | ED Headache ---
General Chief Complaint: Head/Cervical Problems Stated Complaint: HEADACKE/HYPERTENSION Nursing Triage Note: Patient states that he has had his headache for 3 days and intermittent nausea. Patient is diabetic and hasn't taken his blood sugar or insulin for 2 weeks. Nursing Sepsis Screen: No Definite Risk History of Present Illness Date Seen by Provider: Dec 10, 2019 Time Seen by Provider: 23:15 Initial Comments The patient is a 44-year-old male who is an uncontrolled insulin-dependent diabetic. He also has a history of left temporo-occipital ischemic stroke in March of this year with some minimal hemorrhage to the same site in April. The patient presents for evaluation of 3 days of gradual onset bilateral frontal headache with radiation to the occiput. Associated nausea. No associated fevers, focal weakness, numbness, tingling, neck stiffness/pain/meningismus (patient ranges his neck fully in all dimensions without discomfort or distress), vision changes, upper respiratory congestion/rhinorrhea, cough, sore throat, shortness of breath or chest pain of any kind, abdominal pain, flank pain, back pain, dysuria or hematuria, changes in bowel habits. Blood glucose markedly elevated on D stick at almost 600. Patient reports not taking his insulin for almost 2 weeks Patient is alert and pleasantly and appropriately interactive and in absolutely no acute distress with appropriate vital signs aside from a degree of hypertension upon initial evaluation here in the emergency department. He ambulated in with a narrow, steady gait. Allergies and Home Medications Allergies Coded Allergies: JOSÉ LUISANo Known Allergies (Verified Allergy, Unknown, 05/19/05) Home Medications Alprazolam 0.5 Mg Tablet, 0.5 MG PO DAILY PRN for ANXIETY Prescribed by: ALLAN ALLEN on 03/14/191104 Aspirin 81 Mg Tablet.dr, 81 MG PO DAILY Prescribed by: ALLAN ALLEN on 03/14/191104 Atorvastatin Calcium 20 Mg Tablet, 20 MG PO HS, (Reported) Citalopram Hydrobromide 40 Mg Tablet, 40 MG PO DAILY, (Reported) Gabapentin 800 Mg Tablet, 800 MG PO TID, (Reported) Insulin Aspart 100 Unit/1 Ml Susp, 12 UNIT SC AC Prescribed by: ALLAN ALLEN on 03/14/191104 Insulin Determir 1,000 Units/10 Ml Soln, 30 UNIT SQ HS Prescribed by: ALLAN ALLEN on 1/13/20 1105 Levetiracetam 500 Mg Tablet, 500 MG PO BID Prescribed by: ALLAN ALLEN on 03/14/19 1105 Omeprazole 20 Mg Capsule.dr, 20 MG PO DAILY, (Reported) Tramadol HCl 50 Mg Tablet, 50 MG PO TID PRN for PAIN-MODERATE (5-7), (Reported) Trazodone HCl 100 Mg Tablet, 100 MG PO HS PRN for SLEEP, (Reported) Patient Home Medication List Home Medication List Reviewed: Yes Review of Systems Review of Systems Constitutional: see HPI All Other Systems Reviewed Negative Unless Noted: Yes Past Fnlyhqb-Zoaamk-Comqip Hx Past Med/Social Hx: Reviewed Nursing Past Med/Soc Hx Patient Social History Alcohol Use: Denies Use Alcohol Beverage of Choice: Beer Recreational Drug Use: No Smoking Status: Never a Smoker Type Used: Cigarettes Recent Foreign Travel: No Contact w/Someone Who Travel: No Recent Infectious Disease Expo: No Recent Hopitalizations: Yes (ku for cva 1-20) Physical Abuse: No Sexual Abuse: No Mistreated: No Fear: No Immunizations Up To Date PED Vaccines UTD: Yes Date of Pneumonia Vaccine: Mar 04, 2019 Date of Influenza Vaccine: Mar 04, 2019 Seasonal Allergies Seasonal Allergies: No Past Medical History Surgeries: Yes (BILAT ING HERNIA, ESS, ) Abdominal, Adenoidectomy, Appendectomy, Tonsillectomy Respiratory: No Chronic Bronchitis Currently Using CPAP: No Currently Using BIPAP: No Cardiac: Yes (BP MEDICATIONS IN THE PAST-NOT CURRENTLY) Hypertension Neurological: Yes Neuropathy, Seizure Disorder, Stroke Genitourinary: Yes Kidney Stones Gastrointestinal: No (HX OF PANCREATISIS) Pancreatitis Musculoskeletal: Yes Arthritis Endocrine: Yes (HAS AN INSULIN PUMP) Diabetes, Insulin dep HEENT: Yes (LEFT EYE SCLERITIS, RIGHT LOSS PERIPHERALVISION AND DEPTH PERCEPTION) Loss of Vision: Right Hearing Impairment: Denies Cancer: No Psychosocial: Yes Sleep Difficulties, Anxiety, Depression Integumentary: No Blood Disorders: No Family Medical History Reviewed Nursing Family Hx Colon cancer MATERNAL GRANDFATHER Completed stroke 19 FATHER Deafness or hearing loss 19 FATHER Diabetes mellitus 19 MOTHER (MOM, BROTHER, AUNTS) Gastroenteritis 19 MOTHER Hypercholesterolemia 19 FATHER Hypertension 19 FATHER 19 MOTHER Neoplasm PATERNAL GRANDFATHER (STOMACH) MATERNAL GRANDFATHER (COLON) Psychosocial problem 19 MOTHER Seizure disorder 19 FATHER Physical Exam Vital Signs Vital Signs - First Documented 12/10/19 23:29 Temp 37.1 Pulse 101 Resp 16 B/P (MAP) 157/94 (115) Pulse Ox 99 O2 Delivery Room Air Capillary Refill : Less Than 3 Seconds Height, Weight, BMI Height: 5'10.00" Weight: 185lbs. 2.0oz. [id number]; 28.00 BMI Method: General Appearance: no apparent distress Comments This is a middle-aged male appearing nontoxic and in no acute distress. Head is normocephalic and atraumatic. Neck is supple and nontender and patient ranges his neck fully in all dimensions without discomfort or distress; no neck stiffness/meningismus/rigidity seen. Oropharynx is moist. Lungs are clear to auscultation at all stations. There is a normal S1 and S2 without rubs or gallops and capillary refill is appropriate, less than 2 seconds globally. Abdomen is soft, nontender and nondistended. Skin is warm and dry without cyanosis, clubbing or edema. Psychiatrically, the patient demonstrates appropriate mood and affect and is alert. Neurologically, cranial nerves II through XII are intact and there are no lateralizing deficits noted. Speech is n ormal. Leg which is normal. Coordination is normal. There is no dysmetria with qpikal-xi-rbxz or bqgw-pw-dvcn bilaterally. Strength is 5 out of 5 in all joints of bilateral upper and lower extremities. Sensation is intact to light touch in bilateral upper and lower extremities. The patient ambulance with a narrow, steady gait here in the emergency department. He is alert and oriented 4. Procedures/Interventions Date of ETT Placement: Mar 02, 2019 Time of ETT Placement: 319 Progress/Results/Core Measures Results/Orders Lab Results Laboratory Tests Test 12/10/19 23:15 12/10/19 23:37 12/10/19 23:45 12/11/19 00:30 Range/Units White Blood Count 6.3 4.3-11.0 10^3/uL Red Blood Count 4.49 4.35-5.85 10^6/uL Hemoglobin 14.1 13.3-17.7 G/DL Hematocrit 39 L 40-54 % Mean Corpuscular Volume 87 80-99 FL Mean Corpuscular Hemoglobin 31 25-34 PG Mean Corpuscular Hemoglobin Concent 36 32-36 G/DL Red Cell Distribution Width 11.6 10.0-14.5 % Platelet Count 231 130-400 10^3/uL Mean Platelet Volume 10.3 7.4-10.4 FL Immature Granulocyte % (Auto) 0 % Neutrophils (%) (Auto) 66 42-75 % Lymphocytes (%) (Auto) 23 12-44 % Monocytes (%) (Auto) 8 0-12 % Eosinophils (%) (Auto) 2 0-10 % Basophils (%) (Auto) 1 0-10 % Neutrophils # (Auto) 4.2 1.8-7.8 X 10^3 Lymphocytes # (Auto) 1.4 1.0-4.0 X 10^3 Monocytes # (Auto) 0.5 0.0-1.0 X 10^3 Eosinophils # (Auto) 0.1 0.0-0.3 10^3/uL Basophils # (Auto) 0.0 0.0-0.1 10^3/uL Immature Granulocyte # (Auto) 0.0 0.0-0.1 10^3/uL Glucometer 532 *H 70-110 MG/DL Prothrombin Time 12.5 12.2-14.7 SEC INR Comment 0.9 0.8-1.4 Activated Partial Thromboplast Time 27 24-35 SEC Sodium Level 133 L 135-145 MMOL/L Potassium Level 4.0 3.6-5.0 MMOL/L Chloride Level 95 L 98-107 MMOL/L Carbon Dioxide Level 25 21-32 MMOL/L Anion Gap 13 5-14 MMOL/L Blood Urea Nitrogen 14 7-18 MG/DL Creatinine 1.02 0.60-1.30 MG/DL Estimat Glomerular Filtration Rate > 60 BUN/Creatinine Ratio 14 Glucose Level 601 *H 70-105 MG/DL Calcium Level 9.2 8.5-10.1 MG/DL Corrected Calcium 9.8 8.5-10.1 MG/DL Total Bilirubin 0.2 0.1-1.0 MG/DL Aspartate Amino Transf (AST/SGOT) 10 5-34 U/L Alanine Aminotransferase (ALT/SGPT) 13 0-55 U/L Alkaline Phosphatase 67 40-136 U/L Total Protein 6.2 L 6.4-8.2 GM/DL Albumin 3.3 3.2-4.5 GM/DL Blood Gas Puncture Site RIGHT WRIST Blood Gas Patient Temperature 37.1 Arterial Blood pH 7.43 7.37-7.43 Arterial Blood Partial Pressure CO2 42 35-45 MMHG Arterial Blood Partial Pressure O2 61 L 79-93 MMHG Arterial Blood HCO3 28 H 23-27 MMOL/L Arterial Blood Total CO2 29.2 21.0-31.0 MMOL/L Arterial Blood Oxygen Saturation 92 L 94-100 % Arterial Blood Base Excess 3.2 H -2.5-2.5 MMOL/L Prabhakar Test NEGATIVE Blood Gas Ventilator Setting NO Blood Gas Inspired Oxygen Test 12/11/19 01:42 Range/Units Glucometer 462 *H 70-110 MG/DL My Orders Orders - MANUEL MEREDITH MD Cbc With Automated Diff (12/10/19:52) Comprehensive Metabolic Panel (12/10/19:52) Ua Culture If Indicated (12/10/19) Arterial Blood Gas (12/10/19:52) Protime With Inr (12/10/19:52) Partial Thromboplastin Time (12/10/19:52) Ct Head Wo (12/10/19:52) Ed Iv/Invasive Line Start (12/10/19 23:52) Ns Iv 1000 Ml (Sodium Chloride 0.9%) (12/10/19 23:52) Prochlorperazine Injection (Compazine In (12/11/19 00:00) Diphenhydramine Injection (Benadryl Inje (12/11/19 00:00) Magnesium 1 Gm/100 Ml Ivpb (Magnesium [place] (12/10/19 23:52) Acetaminophen Tablet (Tylenol Tablet) (12/11/19 00:00) Accucheck Stat ONCE (12/10/19 23:56) Insulin (Regular) Human (Novolin R (Per (12/11/19 00:45) Ns Iv 1000 Ml (Sodium Chloride 0.9%) (12/11/19 00:41) Ketorolac Injection (Toradol Injection) (12/11/19 01:15) Insulin (Regular) Human (Novolin R (Per (12/11/19 02:00) Medications Given in ED Current Medications Medications Dose Ordered Sig/Ruperto Route Start Time Stop Time Status Last Admin Dose Admin Acetaminophen 1,000 mg ONCE ONCE PO 12/11/19 00:00 12/11/19 00:01 DC 12/11/19 00:38 1,000 MG Diphenhydramine HCl 25 mg ONCE ONCE IVP 12/11/19 00:00 12/11/19 00:01 DC 12/11/19 00:39 25 MG Insulin Human Regular 10 unit ONCE ONCE SC 12/11/19 02:00 12/11/19 02:01 DC 12/11/19 01:56 10 UNIT Insulin Human Regular 13 unit ONCE ONCE SC 12/11/19 00:45 12/11/19 00:46 DC 12/11/19 00:48 13 UNIT Ketorolac Tromethamine 15 mg ONCE ONCE IVP 12/11/19 01:15 12/11/19 01:16 DC 12/11/19 01:43 15 MG Prochlorperazine Edisylate 10 mg ONCE ONCE IV 12/11/19 00:00 12/11/19 00:01 DC 12/11/19 00:40 10 MG Vital Signs/I&O 12/10/19 23:29 Temp 37.1 Pulse 101 Resp 16 B/P (MAP) 157/94 (115) Pulse Ox 99 O2 Delivery Room Air Blood Pressure Mean: 115 FSBG Bedside Testing Finger Stick Blood Glucose: 532 Blood Glucose Action Taken: Dr. Meredith notified Progress Progress Note : Time: 01:24 Progress Note Insulin-dependent diabetic male, poorly compliant chronically, who presents for evaluation of 3 days of gradual onset bilateral frontal headache. Blood glucose is almost 600. Clinical examination reassuring and neurologic examination is nonfocal. We'll place IV and give IV fluids and insulin once we confirm no DKA and that serum potassium is appropriate. Will give medication for headache as per flowsheet. We will then reevaluate. 0200: Patient resting very comfortably and states his headache is better. Vital signs remain reassuring. Head CT negative per [facility] preliminary report. Labs and imaging remarkable primarily for evidence of hyperglycemia without ketoacidosis or other acute process. ABG with normal pH; PO2 on the low side of normal however favor this to be spurious as patient has not had any shortness of breath, has no respiratory complaints and oxygen saturation is 96% on room air while he is sleeping, very reasonable for a longtime heavy smoker. Lungs are clear on auscultation. Have given two subcutaneous boluses of insulin as well as 2 L of IV fluids. Will reassess blood glucose after fluids are finished for disposition. 0254: Patient is resting very comfortably upon reassessment. He states his headache is "at least 90% better." He feels much, much better overall. Repeat blood glucose 338. He does have insulin at home. He is counseled to follow up with his primary care provider in the office on Thursday to discuss best next steps in care. Counseled him to keep a blood pressure log at home; if blood pressures remained elevated he may need to be started back on a blood pressure agent and he will need to discuss that with his primary care provider at his upcoming appointment. He understands that if he feels worse instead of better or develops any other new symptoms of concern that he will need to return to the emergency department immediately for reevaluation. All questions are answered. Diagnostic Imaging Diagonstic Imaging: CT Comments CT head ([facility]): Impression: No acute findings. Departure Impression Primary Impression: Type 1 diabetes mellitus with hyperglycemia, with long-term current use of insulin Additional Impressions: Headache Qualified Codes: G44.89 - Other headache syndrome Benign essential hypertension Disposition: HOME, SELF-CARE Condition: Improved Departure-Patient Inst. Referrals: OMARI FERREIRA MD (PCP) Primary Care Physician FANY WALTER APRN (Family) Primary Care Physician Patient Instructions: Headache, Adult (DC), Hyperglycemia, Adult (DC) Add. Discharge Instructions: Follow-up with your primary care provider in the office in the next 1-2 days as discussed for a reevaluation of your symptoms and a discussion of next best steps in care. Use your insulin as it is prescribed to control your blood sugars at home. Drink plenty of fluids and get plenty of rest. You may wish to keep a blood pressure log; take your blood pressure twice a day at random times and record the values. Take the log to your upcoming primary care appointment so that you may discuss best next steps in blood pressure management with your doctor. Return to the emergency department right away with worsening symptoms of any kind or with any other new symptoms of concern. MANUEL MEREDITH MD Dec 11, 2019 01:22
[2019-12-11 03:01] VITALS: BP 161/89
--- NOTE | 2019-12-11 06:33 | Diagnostic Imaging Report ---
PROCEDURE: CT head without contrast. TECHNIQUE: Multiple contiguous axial images were obtained through the brain without the use of intravenous contrast. Auto Exposure Controls were utilized during the CT exam to meet ALARA standards for radiation dose reduction. INDICATION: Headache. Hypertension. COMPARISON: CT head without contrast 04/25/2019. FINDINGS: No intracranial hemorrhage, mass effect, hydrocephalus or extra-axial fluid collections. Chronic infarct in the left parietal lobe. No CT evidence of acute territorial infarction. No acute osseous findings. IMPRESSION: 1. No acute intracranial CT findings. 2. Chronic infarct in the left parietal lobe. Dictated by: Dictated on workstation # [id number]
== END 2019-12-11 03:01 | disposition home or self-care (01) ==
LOC: EDUNIT# 23:08 → ER FS 23:11
DX: E10.65 Type 1 diabetes mellitus with hyperglycemia (principal); Z79.4 Long term (current) use of insulin; R51.9 Headache, unspecified; I10 Essential (primary) hypertension; F41.9 Anxiety disorder, unspecified; G40.909 Epilepsy, unspecified, not intractable, without status epilepticus; F32.9 Major depressive disorder, single episode, unspecified; Z80.0 Family history of malignant neoplasm of digestive organs; Z82.49 Family history of ischemic heart disease and other diseases of the circulatory system; Z83.3 Family history of diabetes mellitus; Z80.8 Family history of malignant neoplasm of other organs or systems; Z79.82 Long term (current) use of aspirin
CPT/HCPCS: 36415; 70450; 80053; 82805; 82962; 85025; 85610; 85730

== ENCOUNTER 2020-05-12 03:35 | Inpatient (IN) | payer OTHER ==
[~2020-05-12] VITALS: Ht 177.8 cm; Wt 97.3 kg
[~2020-05-12 03:35] MED LIST changes: -NICO-588 TD; +NICO-685 TD
[2020-05-12] MEDS ORDERED: fentaNYL INJ 100 MCG/2 ML AMP IVP STA (03:52)
[2020-05-12] MEDS ORDERED: NS IV 1000 ML 1,000 ML IV STA ×2 (03:52→04:57)
[2020-05-12] MEDS ORDERED: KETOROLAC 30 MG/ML VIAL IVP STA (03:52)
[2020-05-12] MEDS ORDERED: ONDANSETRON 4 MG/2 ML (SDV) Z0FRAN IVP STA (03:52)
[2020-05-12] MEDS ORDERED: inSUlin (REGULAR) HUMAN 1 UNIT/0.01 ML (CHARGE PER UNIT) SC STA (03:54)
--- NOTE | 2020-05-12 04:01 | ED General ---
General Stated Complaint: LOWER ABDOMINAL PAIN Source of Information: Patient History of Present Illness Date Seen by Provider: May 12, 2020 Time Seen by Provider: 03:36 Initial Comments 45 yo male presenting with complaints of abdominal pain since ThursdayMay 09. He reports the pain came on and would be worse at times but then was better during the day on , worse overnight , better during the day Thursday and bad again tonight so he finally came to the ED. He did not try to see his doctor about his severe pain that has been going off and on since Thursday. He denies any blood in urine or stool. He states the pain is not any worse when he eats. He states the pain is all across his abdomen and points in pain and running all the way across his abdomen as well as complaining of pain in his back. He has not tried taking anything for pain at home and when asked about that he states that he has no pain medicine. When asked about [id number] pain medication to take for pain he said that he had not tried any of that. He has had vomiting with nausea. He denies any constipation or diarrhea. He states that his urine has been a little bit darker. He denies any burning or pain with urination no frequency. He states this feels different than when he has had kidney stones in the past. He has not been managing his diabetes well recently had his sugar was reportedly in the 250 range earlier this evening and now 487 on arrival to ED. he does report having prior kidney stones as well as appendectomy. He denies any fever or chills. Pain is worse with palpation and movement. Timing/Duration: 3-4 Days, Getting Worse, Intermittent Severity: Severe Modifying Factors: worse with Movement Associated Systoms: No Chest Pain, No Cough, No Diaphoresis, No Fever/Chills, No Headaches, No Loss of Appetite; Malaise, Nausea/Vomiting; No Rash, No Seizure, No Shortness of Air, No Syncope, No Weakness Allergies and Home Medications Allergies Coded Allergies: NKANo Known Allergies (Verified Allergy, Unknown, 05/19/05) clindamycin (Verified Allergy, Unknown, 05/12/20) Home Medications Alprazolam 0.5 Mg Tablet, 0.5 MG PO DAILY PRN for ANXIETY Prescribed by: ALLAN ALLEN on 03/14/19 1105 Aspirin 81 Mg Tablet.dr, 81 MG PO DAILY Prescribed by: ALLAN ALLEN on 03/14/191104 Atorvastatin Calcium 20 Mg Tablet, 20 MG PO HS, (Reported) Citalopram Hydrobromide 40 Mg Tablet, 40 MG PO DAILY, (Reported) Gabapentin 800 Mg Tablet, 800 MG PO TID, (Reported) Insulin Aspart 100 Unit/1 Ml Susp, 12 UNIT SC AC Prescribed by: ALLAN ALLEN on 03/14/191104 Insulin Determir 1,000 Units/10 Ml Soln, 30 UNIT SQ HS Prescribed by: ALLAN ALLEN on 03/14/191104 Levetiracetam 500 Mg Tablet, 500 MG PO BID Prescribed by: ALLAN ALLEN on 03/14/191104 Omeprazole 20 Mg Capsule.dr, 20 MG PO DAILY, (Reported) Tramadol HCl 50 Mg Tablet, 50 MG PO TID PRN for PAIN-MODERATE (5-7), (Reported) Trazodone HCl 100 Mg Tablet, 100 MG PO HS PRN for SLEEP, (Reported) Patient Home Medication List Home Medication List Reviewed: Yes Review of Systems Review of Systems Constitutional: No chills, No diaphoresis, No fever; malaise EENTM: no symptoms reported Respiratory: no symptoms reported Cardiovascular: no symptoms reported Gastrointestinal: see HPI Genitourinary: see HPI Musculoskeletal: back pain (Tender to palpation and right more than left) Skin: No rash Psychiatric/Neurological: Denies Numbness, Denies Paresthesia Hematologic/Lymphatic: No Symptoms Reported Immunological/Allergic: no symptoms reported Past Eytmaen-Zhmuvc-Aovgig Hx Past Med/Social Hx: Reviewed Nursing Past Med/Soc Hx Patient Social History Alcohol Beverage of Choice: Beer Type Used: Cigarettes Recent Hopitalizations: Yes (ku for cva 1-20) Immunizations Up To Date PED Vaccines UTD: Yes Date of Pneumonia Vaccine: Mar 04, 2019 Date of Influenza Vaccine: Mar 04, 2019 Seasonal Allergies Seasonal Allergies: No Past Medical History Surgeries: Yes (BILAT ING HERNIA, ESS, ) Abdominal, Adenoidectomy, Appendectomy, Tonsillectomy Respiratory: No Chronic Bronchitis Currently Using CPAP: No Currently Using BIPAP: No Cardiac: Yes (BP MEDICATIONS IN THE PAST-NOT CURRENTLY) Hypertension Neurological: Yes Neuropathy, Seizure Disorder, Stroke Genitourinary: Yes Kidney Stones Gastrointestinal: No (HX OF PANCREATISIS) Pancreatitis Musculoskeletal: Yes Arthritis Endocrine: Yes (HAS AN INSULIN PUMP) Diabetes, Insulin dep HEENT: Yes (LEFT EYE SCLERITIS, RIGHT LOSS PERIPHERALVISION AND DEPTH PERCEPTION) Loss of Vision: Right Hearing Impairment: Denies Cancer: No Psychosocial: Yes Sleep Difficulties, Anxiety, Depression Integumentary: No Blood Disorders: No Family Medical History Colon cancer MATERNAL GRANDFATHER Completed stroke 19 FATHER Deafness or hearing loss 19 FATHER Diabetes mellitus 19 MOTHER (MOM, BROTHER, AUNTS) Gastroenteritis 19 MOTHER Hypercholesterolemia 19 FATHER Hypertension 19 FATHER 19 MOTHER Neoplasm PATERNAL GRANDFATHER (STOMACH) MATERNAL GRANDFATHER (COLON) Psychosocial problem 19 MOTHER Seizure disorder 19 FATHER Physical Exam Vital Signs Vital Signs - First Documented 05/12/20 03:40 Temp 36.6 Pulse 116 Resp 20 B/P (MAP) 215/118 (150) Pulse Ox 97 O2 Delivery Room Air Capillary Refill : Height, Weight, BMI Height: 5'10.00" Weight: 185lbs. 2.0oz. [id number]; 28.00 BMI Method: General Appearance: Mild Distress HEENT: PERRL/EOMI, Normal ENT Inspection Neck: Full Range of Motion, Normal Inspection, Non Tender Respiratory: Chest Non Tender, Lungs Clear, Normal Breath Sounds Cardiovascular: Regular Rate, Rhythm, Normal Peripheral Pulses Gastrointestinal: Normal Bowel Sounds, No Pulsatile Mass, Soft, Guarding; No Rebound; Tenderness (Diffuse with guarding no rebound) Rectal: Deferred Back: No Vertebral Tenderness, CVA Tenderness (L), CVA Tenderness (R) Extremity: Normal Capillary Refill, No Pedal Edema Neurologic/Psychiatric: Alert, Oriented x3, paper grader II-XII Norm as Tested Skin: Normal Color, Warm/Dry Procedures/Interventions Date of ETT Placement: Mar 02, 2019 Time of ETT Placement: 0320 Progress/Results/Core Measures Suspected Sepsis SIRS Temperature: Pulse: Respiratory Rate: Laboratory Tests 05/12/20 03:47: White Blood Count 9.0 Blood Pressure / Mean: Laboratory Tests 05/12/20 03:47: Creatinine 1.47H, INR Comment 0.8, Platelet Count 326, Total Bilirubin < 0.2 Results/Orders Lab Results Laboratory Tests Test 05/12/20 03:47 05/12/20 03:52 05/12/20 04:03 05/12/20 06:03 Range/Units White Blood Count 9.0 4.3-11.0 10^3/uL Red Blood Count 4.23 L 4.35-5.85 10^6/uL Hemoglobin 13.1 L 13.3-17.7 G/DL Hematocrit 37 L 40-54 % Mean Corpuscular Volume 87 80-99 FL Mean Corpuscular Hemoglobin 31 25-34 PG Mean Corpuscular Hemoglobin Concent 36 32-36 G/DL Red Cell Distribution Width 12.9 10.0-14.5 % Platelet Count 326 130-400 10^3/uL Mean Platelet Volume 9.5 7.4-10.4 FL Neutrophils (%) (Auto) 70 42-75 % Lymphocytes (%) (Auto) 16 12-44 % Monocytes (%) (Auto) 11 0-12 % Eosinophils (%) (Auto) 2 0-10 % Basophils (%) (Auto) 1 0-10 % Neutrophils # (Auto) 6.3 1.8-7.8 X 10^3 Lymphocytes # (Auto) 1.4 1.0-4.0 X 10^3 Monocytes # (Auto) 1.0 0.0-1.0 X 10^3 Eosinophils # (Auto) 0.2 0.0-0.3 10^3/uL Basophils # (Auto) 0.1 0.0-0.1 10^3/uL Prothrombin Time 11.7 L 12.2-14.7 SEC INR Comment 0.8 0.8-1.4 Activated Partial Thromboplast Time 28 24-35 SEC Sodium Level 136 135-145 MMOL/L Potassium Level 3.7 3.6-5.0 MMOL/L Chloride Level 98 98-107 MMOL/L Carbon Dioxide Level 28 21-32 MMOL/L Anion Gap 10 5-14 MMOL/L Blood Urea Nitrogen 25 H 7-18 MG/DL Creatinine 1.47 H 0.60-1.30 MG/DL Estimat Glomerular Filtration Rate 52 BUN/Creatinine Ratio 17 Glucose Level 531 *H 70-105 MG/DL Calcium Level 8.9 8.5-10.1 MG/DL Corrected Calcium 9.9 8.5-10.1 MG/DL Total Bilirubin < 0.2 0.1-1.0 MG/DL Aspartate Amino Transf (AST/SGOT) 12 5-34 U/L Alanine Aminotransferase (ALT/SGPT) 17 0-55 U/L Alkaline Phosphatase 95 40-136 U/L Total Protein 6.1 L 6.4-8.2 GM/DL Albumin 2.8 L 3.2-4.5 GM/DL Lipase > 5139 H 8-78 U/L Glucometer 487 *H 380 H 70-110 MG/DL Urine Color STRAW Urine Clarity CLEAR Urine pH 7.0 5-9 Urine Specific [place] 1.015 L 1.016-1.022 Urine Protein 2+ H NEGATIVE Urine Glucose (UA) 3+ H NEGATIVE Urine Ketones NEGATIVE NEGATIVE Urine Nitrite NEGATIVE NEGATIVE Urine Bilirubin NEGATIVE NEGATIVE Urine Urobilinogen 0.2 < = 1.0 MG/DL Urine Leukocyte Esterase NEGATIVE NEGATIVE Urine RBC (Auto) 1+ H NEGATIVE Urine RBC 5-10 H /HPF Urine WBC NONE /HPF Urine Squamous Epithelial Cells 2-5 /HPF Urine Crystals NONE /LPF Urine Bacteria TRACE /HPF Urine Casts NONE /LPF Urine Mucus NEGATIVE /LPF Urine Culture Indicated NO Urine Opiates Screen NEGATIVE NEGATIVE Urine Oxycodone Screen NEGATIVE NEGATIVE Urine Methadone Screen NEGATIVE NEGATIVE Urine Propoxyphene Screen NEGATIVE NEGATIVE Urine Barbiturates Screen NEGATIVE NEGATIVE Ur Tricyclic Antidepressants Screen NEGATIVE NEGATIVE Urine Phencyclidine Screen NEGATIVE NEGATIVE Urine Amphetamines Screen NEGATIVE NEGATIVE Urine Methamphetamines Screen NEGATIVE NEGATIVE Urine Benzodiazepines Screen NEGATIVE NEGATIVE Urine Cocaine Screen NEGATIVE NEGATIVE Urine Cannabinoids Screen NEGATIVE NEGATIVE My Orders Orders - SATISH WAYNE MD Comprehensive Metabolic Panel (05/12/20 03:39) Lipase (05/12/20 03:39) Ua Culture If Indicated (05/12/20 03:39) Ed Iv/Invasive Line Start (05/12/20 03:39) Drug Screen Stat (Urine) (05/12/20 03:39) Accucheck Stat ONCE (05/12/20 03:41) Ct Abd/Pelvis Wo(Kidney Stone) (05/12/20 03:41) Ns Iv 1000 Ml (Sodium Chloride 0.9%) (05/12/20 03:52) Ondansetron Injection (Zofran Injectio (05/12/20 03:52) Ketorolac Injection (Toradol Injection) (05/12/20 03:52) Fentanyl Injection (Sublimaze Injection (05/12/20 03:52) Protime With Inr (05/12/20 03:52) Partial Thromboplastin Time (05/12/20 03:52) Insulin (Regular) Human (Novolin R (Per (05/12/20 03:54) Cbc With Automated Diff (05/12/20 04:11) Ns Iv 1000 Ml (Sodium Chloride 0.9%) (05/12/20 04:57) Morphine Injection (Morphine Injection (05/12/20 04:57) Pantoprazole Injection (Protonix Injecti (05/12/20 04:57) Accucheck Prn (05/12/20 06:02) Nothing By Mouth (05/12/20 Breakfast) Normal Saline 1l Iv (05/12/20 06:45) Vital Signs/I&O 05/12/20 03:40 Temp 36.6 Pulse 116 Resp 20 B/P (MAP) 215/118 (150) Pulse Ox 97 O2 Delivery Room Air Capillary Refill : Progress Note #1: Progress Note Obtain basic labs as well as urinalysis and within complaining of diffuse abdominal pain and inconsistent history will also obtain a urine drug screen. Give IV fluids for hydration, Toradol and fentanyl for pain, Zofran for nausea. His Accu-Chek was reading high at 487 so will give 10 units of subcutaneous regular insulin. CT scan of the abdomen and pelvis without contrast since he has had pain for over 3 days and history of kidney stones. With complaints of severe pain this certainly could be a kidney stone again. If it is diverticulitis or colitis after 3 to 4 days of symptoms the CT without contrast should still show that. Differential diagnosis would include kidney stones, diverticulitis, colitis, gastritis, pancreatitis, cholecystitis, DKA. Progress Note #2: Time: 04:24 Progress Note CBC shows a white count of 9000 with hemoglobin of 13.1. His coags are normal. His urine drug screen is negative. His urinalysis shows specific gravity of 1.015. He does have 2+ protein and 3+ glucose in his urine but there are no ketones. He has 1+ RBCs with 5-10 white blood cells on the micro exam. He has no leukocyte esterase or nitrites. Awaiting chemistry results. Certainly with the blood in his urine this could be a kidney stone. Progress Note #3: Time: 04:48 Progress Note Chemistry shows elevated BUN and Cr 1.47 to go with some dehydration or renal insufficiency as it is higher than his prior labs in our system. He has normal L FTs but does have elevated Lipase that had to be diluted and was reported out at >5139. CT scan rebooting so imaging delayed but should have scan done soon to see if the small amount of blood in urine is from a stone and if there is fluid or signs of abscess with pancreas. Discussed results with pt and spouse and they are agreeable to admit in [facility] for IVF hydration, sliding scale insulin treatment for diabetes and pain control for his pancreatitis while on bowel rest. Will try Morphine since Fentanyl had not done much for his pain. Protonix in case he has some gastritis component of pain. repeat IVF bolus. Will check in with Dr. Allen for [facility] about admit pending the results of CT scan. Progress Note #4: Time: 06:[address] scan back and shows acute on chronic pancreatitis findings. Kidney stone in left kidney but no definite ureteral stones. Pt reports his pain is down to 4/10 and he is asleep in the room. D/w Dr. Allen media production manager for [facility] and Dr. Szymanski. She accepted pt but since his glucose only went from 487 to 380 with 10 units of regular insulin SC she requested ICU and insulin drip. Since he is not DKA will use the non DKA insulin infusion order set. Continue with fluids and pain management as needed, Zofran for nausea. Diagnostic Imaging Diagonstic Imaging: CT Plain Films/CT/US/NM/MRI: abdomen, pelvis Comments Acute on chronic pancreatitis. Small stone left kidney. Multiple retroperitoneal calcifications but no definite ureteral stones. Read by radiologist Etta Bansal MD at [phone] and faxed at [phone]. NAME: SOMMER NINA [facility] REC#: [id number] PT STATUS: REG ER : 1975 PHYSICIAN: SATISH WAYNE MD ADMIT DATE: 05/12/20/ER FS Draft Date of Exam:05/12/20 CT ABD/PELVIS WO(KIDNEY STONE) PROCEDURE: CT urinary tract, rule out kidney stone. TECHNIQUE: Multiple contiguous axial images were obtained through the abdomen and pelvis without the use of intravenous contrast. Auto Exposure Controls were utilized during the CT exam to meet ALARA standards for radiation dose reduction. INDICATION: Abdominal pain. FINDINGS: The heart size is normal. There is some dependent atelectasis in the lung bases. The liver is normal in size without focal lesions. Gallbladder is unremarkable. There is no biliary duct dilatation. Spleen is normal. There appears to be mild inflammatory change about the pancreas suspect for pancreatitis. There are also some calcifications within the pancreas suggesting chronic calcific pancreatitis. There is a 2 mm nonobstructing left renal calculus. The aorta is nonaneurysmal. Bowel gas pattern is nonspecific. Appendix appears to be surgically absent. There is no free air. Bladder is normal. There is no pelvic mass, adenopathy or free fluid. There are minimal degenerative changes in the spine. IMPRESSION: Likely acute on chronic pancreatitis A 2 mm nonobstructing left renal calculus. There is, however, no evidence of obstructive uropathy. Dictated on workstation # [id number] Dict: 05/12/20 0615 Trans: 05/12/20 0625 NORIS [id number] Interpreted by: TIFFANY UREÑA MD Electronically signed by: Reviewed: Reviewed Night [facility] Study Departure Communication (Admissions) Time/Spoke to Admitting Phy: 06:06 d/w Dr. Allen media production manager for [facility] and will admit for acute on chronic pancreatitis. Continue fluids until can get to ICU and start insulin drip. Impression Primary Impression: Acute pancreatitis Qualified Codes: K85.90 - Acute pancreatitis without necrosis or infection, unspecified Additional Impressions: Diabetes mellitus, insulin dependent (IDDM), uncontrolled Essential hypertension Disposition: 30 STILL A PATIENT Condition: Stable Admissions Decision to Admit Reason: Admit from ER (General) Decision to Admit/Date: May 12, 2020 Time/Decision to Admit Time: 06:06 Departure-Patient Inst. Referrals: OMARI SZYMANSKI MD (PCP) Primary Care Physician FANY WALTER APRN (Family) Primary Care Physician SATISH WAYNE MD May 12, 2020 04:01
[2020-05-12 04:16] LABS: BACTERIA,URINE TRACE /HPF; BILIRUBIN,URINE NEGATIVE (NEGATIVE); CLARITY,URINE CLEAR; COLOR,URINE STRAW; GLUCOSE, URINE (UA) 3+ (NEGATIVE); KETONES,URINE NEGATIVE (NEGATIVE); LEUKOCYTE ESTERASE ,URINE NEGATIVE (NEGATIVE); NITRITE,URINE NEGATIVE (NEGATIVE); PROTEIN,URINE 2+ (NEGATIVE)
[2020-05-12 04:17] LABS: HEMATOCRIT 37 % (40-54); HEMOGLOBIN 13.1 G/DL (13.3-17.7); MEAN CORPUSCULAR HEMOGLOBIN 31 PG (25-34); MEAN CORPUSCULAR HGB CONC 36 G/DL (32-36); MEAN CORPUSCULAR VOLUME 87 FL (80-99)
[2020-05-12 04:18] LABS: BASOPHILS # (AUTO) 0.1 10^3/uL (0.0-0.1); BASOPHILS % (AUTO) 1 % (0-10); EOSINOPHILS # (AUTO) 0.2 10^3/uL (0.0-0.3); EOSINOPHILS % (AUTO) 2 % (0-10); LYMPHOCYTES # (AUTO) 1.4 X 10^3 (1.0-4.0); LYMPHOCYTES % (AUTO) 16 % (12-44); MEAN PLATELET VOLUME 9.5 FL (7.4-10.4); MONOCYTES % (AUTO) 11 % (0-12); NEUTROPHILS # (AUTO) 6.3 X 10^3 (1.8-7.8); NEUTROPHILS % (AUTO) 70 % (42-75); PLATELET COUNT 326 10^3/uL (130-400)
[2020-05-12 04:19] LABS: INR 0.8 (0.8-1.4); PROTHROMBIN TIME PATIENT 11.7 SEC (12.2-14.7)
[2020-05-12 04:23] LABS: AMPHETAMINE SCREEN, URINE NEGATIVE (NEGATIVE); BARBITURATE SCREEN URINE NEGATIVE (NEGATIVE); BENZODIAZEPINES SCREEN URINE NEGATIVE (NEGATIVE); CANNABINOID SCREEN, URINE NEGATIVE (NEGATIVE); COCAINE SCREEN URINE NEGATIVE (NEGATIVE); METHADONE STAT NEGATIVE (NEGATIVE); METHAMPHETAMINE SCREEN URINE S NEGATIVE (NEGATIVE); OPIATE SCREEN URINE NEGATIVE (NEGATIVE); OXYCODONE STAT NEGATIVE (NEGATIVE); PROPOXYPHENE STAT NEGATIVE (NEGATIVE); TRICYCLIC ANTIDEPRESSANTS SCRE NEGATIVE (NEGATIVE)
[2020-05-12 04:27] LABS: CHLORIDE 98 MMOL/L (98-107); POTASSIUM 3.7 MMOL/L (3.6-5.0); SODIUM 136 MMOL/L (135-145)
[2020-05-12 04:28] LABS: BUN/CREATININE RATIO 17; CARBON DIOXIDE 28 MMOL/L (21-32); CREATININE SERUM 1.47 MG/DL (0.60-1.30); GFR ESTIMATED 52
[2020-05-12 04:29] LABS: ALANINE AMINOTRANSFERASE 17 U/L (0-55); ALBUMIN 2.8 GM/DL (3.2-4.5); ALKALINE PHOSPHATASE 95 U/L (40-136); BILIRUBIN,TOTAL < 0.2 MG/DL (0.1-1.0); CALCIUM 8.9 MG/DL (8.5-10.1); GLUCOSE 531 MG/DL (70-105); TOTAL PROTEIN 6.1 GM/DL (6.4-8.2)
[2020-05-12 04:40] LABS: LIPASE > 5139 U/L (8-78)
[2020-05-12] MEDS ORDERED: PANTOPRAZOLE 40 MG (PROTONIX) VIAL IV STA (04:57)
[2020-05-12] MEDS ORDERED: morphine INJ 10 MG/ML 1ML (SYR OR VIAL) IVP STA (04:57)
--- NOTE | 2020-05-12 06:25 | Diagnostic Imaging Report ---
PROCEDURE: CT urinary tract, rule out kidney stone. TECHNIQUE: Multiple contiguous axial images were obtained through the abdomen and pelvis without the use of intravenous contrast. Auto Exposure Controls were utilized during the CT exam to meet ALARA standards for radiation dose reduction. INDICATION: Abdominal pain. FINDINGS: The heart size is normal. There is some dependent atelectasis in the lung bases. The liver is normal in size without focal lesions. Gallbladder is unremarkable. There is no biliary duct dilatation. Spleen is normal. There appears to be mild inflammatory change about the pancreas suspect for pancreatitis. There are also some calcifications within the pancreas suggesting chronic calcific pancreatitis. There is a 2 mm nonobstructing left renal calculus. The aorta is nonaneurysmal. Bowel gas pattern is nonspecific. Appendix appears to be surgically absent. There is no free air. Bladder is normal. There is no pelvic mass, adenopathy or free fluid. There are minimal degenerative changes in the spine. IMPRESSION: Likely acute on chronic pancreatitis A 2 mm nonobstructing left renal calculus. There is, however, no evidence of obstructive uropathy. Dictated by: Dictated on workstation # [id number]
[2020-05-12] MEDS ORDERED: NS IV 1000 ML 1,000 ML IV SCH (06:45)
[2020-05-12 07:45] VITALS: BP 156/88
--- NOTE | 2020-05-12 09:04 | Consultation - Surgery ---
DIEGO JUNG MED STUDENT 05/12/20 0904: History of Present Illness History of Present Illness Patient Consulted On(bassam/time) 05/12/20 08:58 Date Seen by Provider: May 12, 2020 Time Seen by Provider: 08:40 Reason for Visit: Acute pancreatitis History of Present Illness Thursday he started getting a epigastric cramping pain with nausea but no radiation of pain, he took a hydrocodone which relieved his symptoms enough for him to sleep and the pain slowly subsided over the next two days. Thursday he went out with his friend and was drinking iced tea, on his drive home that evening he began getting the same cramping/wrenching pain that he had earlier. This worsened throughout the evening until it was a 8/10 and the pain radiated along his flanks and into his back. He was vomiting throughout the evening but denies blood in the vomit. He denies constipation or diarrhea. He has never had any pain like this prior. At the ER he was given pain medication and since then he says that his pain has been manageable. Was able to converse comfortably in the ICU after admission here in [place]. Allergies and Home Medications Allergies Coded Allergies: NKANo Known Allergies (Verified Allergy, Unknown, 05/19/05) clindamycin (Verified Allergy, Unknown, 05/12/20) Home Medications Alprazolam 0.5 Mg Tablet, 0.5 MG PO DAILY PRN for ANXIETY Prescribed by: ALLAN ALLEN on 03/14/191104 Aspirin 81 Mg Tablet., 81 MG PO DAILY Prescribed by: ALLAN ALLEN on 03/14/191104 Atorvastatin Calcium 20 Mg Tablet, 20 MG PO HS, (Reported) Citalopram Hydrobromide 40 Mg Tablet, 40 MG PO DAILY, (Reported) Gabapentin 800 Mg Tablet, 800 MG PO TID, (Reported) Insulin Aspart 100 Unit/1 Ml Susp, 12 UNIT SC AC Prescribed by: ALLAN ALLEN on 03/14/191104 Insulin Determir 1,000 Units/10 Ml Soln, 30 UNIT SQ HS Prescribed by: ALLAN ALLEN on 03/14/191104 Levetiracetam 500 Mg Tablet, 500 MG PO BID Prescribed by: ALLAN ALLEN on 03/14/191104 Omeprazole 20 Mg Capsule.dr, 20 MG PO DAILY, (Reported) Tramadol HCl 50 Mg Tablet, 50 MG PO TID PRN for PAIN-MODERATE (5-7), (Reported) Trazodone HCl 100 Mg Tablet, 100 MG PO HS PRN for SLEEP, (Reported) Past Jamgopv-Pamciy-Vudfca Hx Patient Social History Smoking Status: Current Everyday Smoker Type Used: Cigarettes Recent Hopitalizations: Yes (ku for cva 1-20) Alcohol Use?: Yes Have you traveled recently?: No Immunizations Up To Date PED Vaccines UTD: Yes Date of Pneumonia Vaccine: Mar 04, 2019 Date of Influenza Vaccine: Mar 04, 2019 Seasonal Allergies Seasonal Allergies: No Surgeries History of Surgeries: Yes (BILAT ING HERNIA, ESS, ) Surgeries: Abdominal, Adenoidectomy, Appendectomy, Tonsillectomy Respiratory History of Respiratory Disorde: No Respiratory Disorders: Chronic Bronchitis Cardiovascular History of Cardiac Disorders: Yes (BP MEDICATIONS IN THE PAST-NOT CURRENTLY) Cardiac Disorders: Hypertension Neurological History of Neurological Disord: Yes Neurological Disorders: Neuropathy, Seizure Disorder, Stroke Genitourinary History of Genitourinary Disor: Yes Genitourinary Disorders: Kidney Stones Gastrointestinal History of Gastrointestinal Di: No (HX OF PANCREATISIS) Gastrointestinal Disorders: Pancreatitis Musculoskeletal History of Musculoskeletal Dis: Yes Musculoskeletal Disorders: Arthritis Endocrine History of Endocrine Disorders: Yes (HAS AN INSULIN PUMP) Endocrine Disorders: Diabetes, Insulin dep HEENT History of HEENT Disorders: Yes (LEFT EYE SCLERITIS, RIGHT LOSS PERIPHERALVISION AND DEPTH PERCEPTION) Loss of Vision: Right Hearing Impairment: Denies Cancer History of Cancer: No Psychosocial History of Psychiatric Problem: Yes Behavioral Health Disorders: Sleep Difficulties, Anxiety, Depression Integumentary History of Skin or Integumenta: No Blood Transfusions History of Blood Disorders: No Family Medical History Family Medial History: Colon cancer MATERNAL GRANDFATHER Completed stroke 19 FATHER Deafness or hearing loss 19 FATHER Diabetes mellitus 19 MOTHER (MOM, BROTHER, AUNTS) Gastroenteritis 19 MOTHER Hypercholesterolemia 19 FATHER Hypertension 19 FATHER 19 MOTHER Neoplasm PATERNAL GRANDFATHER (STOMACH) MATERNAL GRANDFATHER (COLON) Psychosocial problem 19 MOTHER Seizure disorder 19 FATHER Review of Systems-General Constitutional: No chills, No diaphoresis, No weakness EENTM: No hearing loss, No ear pain, No vision loss Respiratory: No cough, No dyspnea on exertion, No short of breath Cardiovascular: No chest pain, No Hx of Intervention, No palpitations Gastrointestinal: RUQ, LUQ; No RLQ, No LLQ; abdominal pain; No constipation, No diarrhea, No hematemesis, No melena Genitourinary: No dysuria, No hematuria Musculoskeletal: back pain; No muscle pain, No muscle stiffness; muscle cramps Skin: No change in color, No change in hair/nails Psychiatric/Neurological: Denies Numbness, Denies Tingling, Denies Weakness Physical Exam-General Problems Physical Exam Vital Signs Vital Signs - First Documented 05/12/20 03:40 Temp 36.6 Pulse 116 Resp 20 B/P (MAP) 215/118 (150) Pulse Ox 97 O2 Delivery Room Air Capillary Refill : Less Than 3 Seconds General Appearance: WD/WN, no apparent distress Eyes: Bilateral Eye Normal Inspection, Bilateral Eye PERRL, Bilateral Eye EOMI HEENT: PERRL/EOMI, normal ENT inspection, pharynx normal Neck: non-tender, full range of motion, supple, normal inspection, lymphadenopathy (R) Respiratory: chest non-tender, lungs clear, normal breath sounds, no respiratory distress, no accessory muscle use Cardiovascular: regular rate, rhythm, no edema, no gallop, no JVD, no murmur Peripheral Pulses: 2+ Dorsalis Pedis (R), 2+ Left Dors-Pedis (L), 2+ Radial Pulses (R), 2+ Radial Pulses (L) Gastrointestinal: normal bowel sounds, soft, no organomegaly, no pulsatile mass, guarding, tenderness Rectal: deferred Back: normal inspection, no CVA tenderness Extremities: normal range of motion, non-tender, normal inspection, no pedal edema, normal capillary refill Neurologic/Psychiatric: no motor/sensory deficits, alert, normal mood/affect, oriented x 3 Skin: normal color, warm/dry Lymphatic: no adenopathy Data Review Labs Laboratory Tests 05/12/20 03:47: White Blood Count 9.0, Red Blood Count 4.23L, Hemoglobin 13.1L, Hematocrit 37L, Mean Corpuscular Volume 87, Mean Corpuscular Hemoglobin 31, Mean Corpuscular Hemoglobin Concent 36, Red Cell Distribution Width 12.9, Platelet Count 326, Mean Platelet Volume 9.5, Neutrophils (%) (Auto) 70, Lymphocytes (%) (Auto) 16, Monocytes (%) (Auto) 11, Eosinophils (%) (Auto) 2, Basophils (%) (Auto) 1, Neutrophils # (Auto) 6.3, Lymphocytes # (Auto) 1.4, Monocytes # (Auto) 1.0, Eosinophils # (Auto) 0.2, Basophils # (Auto) 0.1, Prothrombin Time 11.7L, INR Comment 0.8, Activated Partial Thromboplast Time 28, Sodium Level 136, Potassium Level 3.7, Chloride Level 98, Carbon Dioxide Level 28, Anion Gap 10, Blood Urea Nitrogen 25H, Creatinine 1.47H, Estimat Glomerular Filtration Rate 52, BUN/Creatinine Ratio 17, Glucose Level 531*H, Calcium Level 8.9, Corrected Calcium 9.9, Total Bilirubin < 0.2, Aspartate Amino Transf (AST/SGOT) 12, Alanine Aminotransferase (ALT/SGPT) 17, Alkaline Phosphatase 95, Total Protein 6.1L, Albumin 2.8L, Lipase > 5139H 05/12/20 03:52: Glucometer 487*H 05/12/20 04:03: Urine Color STRAW, Urine Clarity CLEAR, Urine pH 7.0, Urine Specific [place] 1.015L, Urine Protein 2+H, Urine Glucose (UA) 3+H, Urine Ketones NEGATIVE, Urine Nitrite NEGATIVE, Urine Bilirubin NEGATIVE, Urine Urobilinogen 0.2, Urine Leukocyte Esterase NEGATIVE, Urine RBC (Auto) 1+H, Urine RBC 5-10H, Urine WBC NONE, Urine Squamous Epithelial Cells 2-5, Urine Crystals NONE, Urine Bacteria TRACE, Urine Casts NONE, Urine Mucus NEGATIVE, Urine Culture Indicated NO, Urine Opiates Screen NEGATIVE, Urine Oxycodone Screen NEGATIVE, Urine Methadone Screen NEGATIVE, Urine Propoxyphene Screen NEGATIVE, Urine Barbiturates Screen NEGATIVE, Ur Tricyclic Antidepressants Screen NEGATIVE, Urine Phencyclidine Screen NEGATIVE, Urine Amphetamines Screen NEGATIVE, Urine Methamphetamines Screen NEGATIVE, Urine Benzodiazepines Screen NEGATIVE, Urine Cocaine Screen NEGATIVE, Urine Cannabinoids Screen NEGATIVE 05/12/20 06:03: Glucometer 380H Assessment/Plan Assessment/Plan Admission Diagonsis Acute Pancreatitis Assessment/Plan ASSESSMENT Acute Pancreatitis Seizure hx Uncontrolled DM w/insulin management Hypertension Nephrolithiasis w/o obstruction PLAN IVF Pain and Nausea PRN NPO bowel rest Reevaluate Lipase lvls in AM Consider EGD w/ERCP ADDIS RUSSELL DO 05/12/20 1505: History of Present Illness History of Present Illness History of Present Illness Patient is a 45-year-old male who presented with epigastric abdominal pain that is been going on for approximately 4 days. It worsened in the last 24 hours. Patient states the pain is in the epigastric region and then also wraps around to his back. He admits to some alcohol use approximately 4 days ago when this began. He states he very rarely drinks any alcohol and only had one drink at that time. Patient's pain is cramping and wrenching and currently has slightly improved with fluids and pain management. He was having nausea and vomiting. Currently he denies any fever sweats chills shortness of breath or chest pain. He had a CT scan performed which demonstrating some acute on chronic pancreatitis likely. Patient is lipase > 5139 Allergies and Home Medications Allergies Coded Allergies: NKANo Known Allergies (Verified Allergy, Unknown, 05/19/05) clindamycin (Verified Allergy, Unknown, 05/12/20) Home Medications Alprazolam 0.5 Mg Tablet, 0.5 MG PO DAILY PRN for ANXIETY Prescribed by: ALLAN ALLEN on 03/14/191104 Aspirin 81 Mg Tablet.dr, 81 MG PO DAILY Prescribed by: ALLAN ALLEN on 03/14/191104 Atorvastatin Calcium 20 Mg Tablet, 20 MG PO HS, (Reported) Citalopram Hydrobromide 40 Mg Tablet, 40 MG PO DAILY, (Reported) Gabapentin 800 Mg Tablet, 800 MG PO TID, (Reported) Insulin Aspart 100 Unit/1 Ml Susp, 12 UNIT SC AC Prescribed by: ALLAN ALLEN on 03/14/191104 Insulin Determir 1,000 Units/10 Ml Soln, 30 UNIT SQ HS Prescribed by: ALLAN ALLEN on 03/14/191104 Levetiracetam 500 Mg Tablet, 500 MG PO BID Prescribed by: ALLAN ALLEN on 03/14/191104 Omeprazole 20 Mg Capsule.dr, 20 MG PO DAILY, (Reported) Tramadol HCl 50 Mg Tablet, 50 MG PO TID PRN for PAIN-MODERATE (5-7), (Reported) Trazodone HCl 100 Mg Tablet, 100 MG PO HS PRN for SLEEP, (Reported) Patient Home Medication List Home Medication List Reviewed: Yes Past Qotratq-Jpfqwa-Wzhhqd Hx Reviewed Nursing Assessment Reviewed/Agree w Nursing PMH: Yes Family Medical History Significant Family History: No Pertinent Family Hx Family Medial History: Colon cancer MATERNAL GRANDFATHER Completed stroke 19 FATHER Deafness or hearing loss 19 FATHER Diabetes mellitus 19 MOTHER (MOM, BROTHER, AUNTS) Gastroenteritis 19 MOTHER Hypercholesterolemia 19 FATHER Hypertension 19 FATHER 19 MOTHER Neoplasm PATERNAL GRANDFATHER (STOMACH) MATERNAL GRANDFATHER (COLON) Psychosocial problem 19 MOTHER Seizure disorder 19 FATHER Review of Systems-General Constitutional: No chills, No diaphoresis, No weakness EENTM: No hearing loss, No ear pain, No vision loss Respiratory: No cough, No dyspnea on exertion, No short of breath Cardiovascular: No chest pain, No palpitations Gastrointestinal: RUQ, LUQ; No RLQ, No LLQ; abdominal pain; No constipation, No diarrhea, No hematemesis, No melena Genitourinary: No dysuria, No hematuria Musculoskeletal: back pain; No muscle pain, No muscle stiffness; muscle cramps Skin: No change in color, No change in hair/nails Psychiatric/Neurological: Denies Numbness, Denies Tingling, Denies Weakness All Other Systems Reviewed Negative Unless Noted: Yes (Negative excepted noted.) Physical Exam-General Problems Physical Exam General Appearance: WD/WN, no apparent distress HEENT: PERRL/EOMI, normal ENT inspection Neck: non-tender, supple, normal inspection Respiratory: chest non-tender, no respiratory distress, no accessory muscle use Cardiovascular: regular rate, rhythm, no JVD Gastrointestinal: soft, no organomegaly, no pulsatile mass, tenderness (epigastric, no guarding) Rectal: deferred Back: normal inspection, no CVA tenderness Extremities: normal range of motion, normal inspection, no pedal edema Neurologic/Psychiatric: 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 studio photographer II-XII nml as tested, no motor/sensory deficits, alert, normal mood/affect, oriented x 3 Skin: normal color, warm/dry Lymphatic: no adenopathy Assessment/Plan Assessment/Plan Assessment/Plan ASSESSMENT Acute Pancreatitis Uncontrolled DM w/insulin management Hypertension Nephrolithiasis w/o obstruction Seizure hx PLAN IVF Pain and Nausea medications as needed for control NPO bowel rest No need for EGD Will get u/s of gallbladder for evaluation for stones Supervisory-Addendum Brief Verification & Attestation Participated in pt care: history, MDM, physical Personally performed: exam, history, MDM, supervision of care Care discussed with: Medical Student Procedures: n/a Results interpretation: Verified all documentation Verification and Attestation of Medical Student E/M Service A medical student performed and documented this service in my presence. I reviewed and verified all information documented by the medical student and made modifications to such information, when appropriate. I personally performed the physical exam and medical decision making. Addis Russell, May 12, 2020,15:13 DIEGO JUNG MED STUDENT May 12, 2020 09:04 ADDIS RUSSELL DO May 12, 2020 15:05
[2020-05-12] MEDS ORDERED: CATHETER FLUSH 10 ML SYR IV PRN (10:15)
[2020-05-12] MEDS ORDERED: DEXTROSE 50% 50 ML (IMS) SYR IV PRN ×2 (10:15)
[2020-05-12] MEDS ORDERED: inSUlin (REGULAR) HUMAN 1 UNIT/0.01 ML (CHARGE PER UNIT) IV ONE (10:15)
[2020-05-12 11:10] LABS: POTASSIUM 3.4 MMOL/L (3.6-5.0)
[2020-05-12 11:11] LABS: CALCIUM 7.7 MG/DL (8.5-10.1)
[2020-05-12 11:15] LABS: CREATININE SERUM 1.31 MG/DL (0.60-1.30)
--- NOTE | 2020-05-12 11:23 | History & Physical-Hospitalist ---
History of Present Illness HPI/Chief Complaint CC: Acute pancreatitis HPI: This is a 45yoWM clinic patient of [facility] who is known to me from prior IRF admit for CVA who presented to the [facility] ER with abdominal pain and was found to have severe pancreatitis. CT scan reviewed. Patient continues to smoke and he states he does not drink alcohol. Headache reported. Elevated sugar and BP noted so he is requiring ICU admit. Source: patient, RN/MD Exam Limitations: no limitations Date Seen 05/12/20 Time Seen by a Provider: 11:30 Attending Physician Ayesha Allen DO PCP Self,Alfredo REEVES Referring Physician Date of Admission May 12, 2020 at 08:24 Home Medications & Allergies Home Medications Reviewed patient Home Medication Reconciliation performed by pharmacy medication reconciliations electronics technician and/or nursing. Patients Allergies have been reviewed. Allergies Allergies Coded Allergies NKANo Known Allergies (Verified Allergy, Unknown, 05/19/05) clindamycin (Verified Allergy, Unknown, 05/12/20) Past Hwtoycs-Fhhwfx-Pngnxc Hx Past Med/Social Hx: Reviewed Nursing Past Med/Soc Hx, Reviewed and Corrections made Patient Social History Marrital Status: single Employed/Student: unemployed Alcohol Use: Denies Use Alcohol Beverage of Choice: Beer Recreational Drug Use: No Smoking Status: Current Everyday Smoker Type Used: Cigarettes Recent Foreign Travel: No Contact w/other who traveled: No Recent Hopitalizations: Yes (ku for cva -20) Recent Infectious Disease Expo: No Immunizations Up To Date Pediatric: Yes Date of Pneumonia Vaccine: Mar 04, 2019 Date of Influenza Vaccine: Mar 04, 2019 Seasonal Allergies Seasonal Allergies: No Past Medical History Surgeries: Abdominal, Adenoidectomy, Appendectomy, Tonsillectomy Currently Using CPAP: No Currently Using BIPAP: No Cardiac: Hypertension Neurological: Neuropathy, Seizure Disorder, Stroke Genitourinary: Kidney Stones Gastrointestinal: Pancreatitis Musculoskeletal: Arthritis Endocrine: Diabetes, Insulin dep Loss of Vision: Right Hearing Impairment: Denies Psychosocial: Sleep Difficulties, Anxiety, Depression History of Blood Disorders: No Family History Colon cancer MATERNAL GRANDFATHER Completed stroke 19 FATHER Deafness or hearing loss 19 FATHER Diabetes mellitus 19 MOTHER (MOM, BROTHER, AUNTS) Gastroenteritis 19 MOTHER Hypercholesterolemia 19 FATHER Hypertension 19 FATHER 19 MOTHER Neoplasm PATERNAL GRANDFATHER (STOMACH) MATERNAL GRANDFATHER (COLON) Psychosocial problem 19 MOTHER Seizure disorder 19 FATHER Review of Systems Constitutional: see HPI, malaise, weakness Gastrointestinal: abdominal pain Physical Exam Physical Exam Vital Signs Vital Signs - First Documented 05/12/20 05/12/20 03:40 22:39 Temp 36.6 Pulse 116 Resp 20 B/P (MAP) 215/118 (150) Pulse Ox 97 O2 Delivery Room Air O2 Flow Rate 2.00 Capillary Refill : Less Than 3 Seconds Height, Weight, BMI Height: 5'10.00" Weight: 185lbs. 2.0oz. 83.457780he; 28.00 BMI Method: General Appearance: No Apparent Distress, Chronically ill Eyes: Right Eye Normal Inspection, Right Eye PERRL HEENT: PERRL/EOMI, Normal ENT Inspection, Pharynx Normal, Moist Mucous Membranes Neck: Full Range of Motion, Normal Inspection, Non Tender Respiratory: Chest Non Tender, Lungs Clear, Normal Breath Sounds, No Accessory Muscle Use, No Respiratory Distress Cardiovascular: Regular Rate, Rhythm, No Edema, No Gallop, No JVD, No Murmur, Normal Peripheral Pulses Gastrointestinal: Normal Bowel Sounds, No Organomegaly, No Pulsatile Mass, Soft, Tenderness Back: Normal Inspection, No CVA Tenderness, No Vertebral Tenderness Extremity: Normal Capillary Refill, Normal Inspection, Normal Range of Motion, Non Tender, No Calf Tenderness, No Pedal Edema Neurologic/Psychiatric: Alert, Oriented x3, No Motor/Sensory Deficits, Normal Mood/Affect Skin: Normal Color, Warm/Dry Lymphatic: No Adenopathy Results Results/Procedures Labs Laboratory Tests 05/12/20 03:47 05/12/20 10:54 05/13/20 03:25 Patient resulted labs reviewed. Assessment/Plan Admission Diagnosis Assessment: Acute pancreatitis Elevated sugar severe Elevated BP severe Smoker h/o CVA Seizure d/o Plan: ICU Pain control Nausea meds BP control BS control Dr Antonio consulted for BP Dr Russell consulted Admission Status: Inpatient Order (span 2 midnights) Reason for Inpatient Admission: pancreatitis Diagnosis/Problems Diagnosis/Problems (1) Acute pancreatitis Status: Acute Qualifiers: Pancreatitis type: unspecified pancreatitis type Acute pancreatitis complication: no infection or necrosis Qualified Codes: K85.90 - Acute pancreatitis without necrosis or infection, unspecified (2) Diabetes mellitus, insulin dependent (IDDM), uncontrolled Status: Acute (3) Essential hypertension Status: Acute AYESHA ALLEN DO May 12, 2020 11:23
[2020-05-12] MEDS: ENOXAPARIN 40 MG/0.4 ML (LOVENOX) SYR SC SCH (11:46)
[2020-05-12] MEDS: NS IV 1000 ML 1,000 ML IV SCH ×3 (11:46→22:14)
[2020-05-12] MEDS: ACETAMINOPHEN 325 MG TABLET PO PRN (11:46)
[2020-05-12] MEDS: inSUlin ASPART (NovoLOG) 1 UNIT/0.01 ML (CHARGE PER UNIT) SC SCH ×3 (12:07→23:11)
[2020-05-12] MEDS ORDERED: ENOXAPARIN 40 MG/0.4 ML (LOVENOX) SYR SC SCH (12:15)
[2020-05-12] MEDS ORDERED: CALCIUM CARBONATE 500 MG (TUMS) TAB.CHEW PO PRN (12:15)
[2020-05-12] MEDS ORDERED: LOPERAMIDE 2 MG (IMODIUM) TABLET PO PRN (12:15)
[2020-05-12] MEDS ORDERED: diphenhydrAMINE 25 MG TAB (BENADRYL) PO PRN (12:15)
[2020-05-12] MEDS ORDERED: amLODIPine 5 MG (NORVASC) TAB PO NR (12:15)
[2020-05-12] MEDS ORDERED: DOCUSATE SODIUM 100 MG (COLACE) CAP PO PRN (12:15)
[2020-05-12] MEDS: hydrALAZINE (APESOLINE) 20 MG/ML VIAL IV PRN ×2 (12:18→19:32)
[2020-05-12] MEDS: morphine INJ 4 MG/ML 1 ML (VIAL/SYRINGE) IV PRN ×4 (14:31→22:02)
[2020-05-12] MEDS: ONDANSETRON 4 MG/2 ML (SDV) Z0FRAN IV PRN ×2 (14:32→21:54)
[2020-05-12] MEDS: meTOprolol 5 MG/5 ML (LOPRESSOR) VIAL IV SCH ×3 (17:10→23:15)
[2020-05-12] MEDS ORDERED: meTOprolol 5 MG/5 ML (LOPRESSOR) VIAL IV SCH (18:00)
[2020-05-12] MEDS: SENNA W/DOCUSATE (SENOKOT S) TABLET PO SCH (20:21)
[2020-05-13] MEDS: morphine INJ 4 MG/ML 1 ML (VIAL/SYRINGE) IV PRN ×3 (03:08→22:41)
[2020-05-13] MEDS: ONDANSETRON 4 MG/2 ML (SDV) Z0FRAN IV PRN ×3 (03:13→18:05)
[2020-05-13 04:13] LABS: BASOPHILS % (AUTO) 0 % (0-10); EOSINOPHILS # (AUTO) 0.1 10^3/uL (0.0-0.3); EOSINOPHILS % (AUTO) 1 % (0-10); HEMATOCRIT 36 % (40-54); HEMOGLOBIN 12.5 g/dL (13.3-17.7); LYMPHOCYTES # (AUTO) 1.2 10^3/uL (1.0-4.0); LYMPHOCYTES % (AUTO) 10 % (12-44); MEAN CORPUSCULAR HEMOGLOBIN 31 pg (25-34); MEAN CORPUSCULAR HGB CONC 34 g/dL (32-36); MEAN CORPUSCULAR VOLUME 89 fL (80-99); MEAN PLATELET VOLUME 10.1 fL (9.0-12.2); MONOCYTES # (AUTO) 0.9 10^3/uL (0.0-1.0); MONOCYTES % (AUTO) 7 % (0-12); NEUTROPHILS # (AUTO) 9.4 10^3/uL (1.8-7.8); NEUTROPHILS % (AUTO) 81 % (42-75); PLATELET COUNT 306 10^3/uL (130-400); WHITE BLOOD COUNT 11.6 10^3/uL (4.3-11.0)
[2020-05-13 04:15] LABS: CHLORIDE 110 MMOL/L (98-107); POTASSIUM 3.5 MMOL/L (3.6-5.0); SODIUM 141 MMOL/L (135-145)
[2020-05-13 04:17] LABS: GLUCOSE 220 MG/DL (70-105)
[2020-05-13 04:18] LABS: CARBON DIOXIDE 18 MMOL/L (21-32)
[2020-05-13 04:20] LABS: CREATININE SERUM 1.11 MG/DL (0.60-1.30); GFR ESTIMATED > 60
[2020-05-13 04:21] LABS: BUN/CREATININE RATIO 17
[2020-05-13 04:23] LABS: MAGNESIUM 1.7 MG/DL (1.6-2.4)
[2020-05-13] MEDS: POTASSIUM CL 10MEQ/50ML IVPB 50 ML IV SCH ×2 (04:53→05:48)
[2020-05-13] MEDS: MAGNESIUM 1 GM/100 ML IVPB 100 ML IV SCH ×2 (04:53→05:48)
[2020-05-13] MEDS: meTOprolol 5 MG/5 ML (LOPRESSOR) VIAL IV SCH ×3 (04:54→18:01)
[2020-05-13] MEDS: NS IV 1000 ML 1,000 ML IV SCH ×3 (04:54→18:01)
[2020-05-13] MEDS: inSUlin ASPART (NovoLOG) 1 UNIT/0.01 ML (CHARGE PER UNIT) SC SCH ×3 (04:56→18:01)
[2020-05-13] MEDS ORDERED: POTASSIUM CL 10MEQ/50ML IVPB 50 ML IV SCH (06:00)
[2020-05-13] MEDS ORDERED: MAGNESIUM 1 GM/100 ML IVPB 100 ML IV SCH (06:00)
[2020-05-13] MEDS ORDERED: KCL 20 MEQ TAB (K-DUR) PO SCH (06:00)
[2020-05-13 07:00] LABS: ALBUMIN 2.6 GM/DL (3.2-4.5)
[2020-05-13 07:03] LABS: TOTAL PROTEIN 5.9 GM/DL (6.4-8.2)
[2020-05-13 07:05] LABS: BILIRUBIN,TOTAL 0.2 MG/DL (0.1-1.0)
[2020-05-13 07:09] LABS: BILIRUBIN,DIRECT 0.1 MG/DL (0.0-0.3); BILIRUBIN,INDIRECT 0.1 MG/DL
--- NOTE | 2020-05-13 07:49 | Diagnostic Imaging Report ---
INDICATION: Shortness of air and pancreatitis. Time of exam: 3:11 AM Correlation is made with prior chest 04/25/2019. Cardiac monitoring device overlies the left heart. Lungs are clear. Pulmonary vascularity is normal. No infiltrate, effusion or pneumothorax is detected. IMPRESSION: No acute cardiopulmonary process is detected. Dictated by: Dictated on workstation # [id number]
[2020-05-13] MEDS: SENNA W/DOCUSATE (SENOKOT S) TABLET PO SCH ×2 (07:57→21:57)
[2020-05-13] MEDS: amLODIPine 5 MG (NORVASC) TAB PO SCH (07:57)
[2020-05-13] MEDS: hydrALAZINE (APESOLINE) 20 MG/ML VIAL IV PRN ×3 (08:03→20:19)
--- NOTE | 2020-05-13 08:45 | Progress Note - Surgery ---
DIEGO JUNG MED STUDENT 05/13/20 0845: Subjective Date Seen by a Provider: May 13, 2020 Time Seen by a Provider: 08:15 Subjective/Events-last exam Pt states that he has been resting off and on through the night. Continues to have headaches and nausea, while in the room pt was dry heaving with production of minimal clear mucous. Says that he urinated in the last 24 hours and that it was not dark or bloody. Has not had any bowel movement since admission but says that he is passing gas. Says that his abdominal pain is managed well with the medication but that the nausea has been causing the greatest discomfort. Requested to know when he could take more nausea medication while I was in the room. Pt says that he is feeling miserable but understands that everything that can be done to manage his condition is being done. Focused Exam Respiratory: Chest Non Tender, Lungs Clear, Normal Breath Sounds, No Accessory Muscle Use, No Respiratory Distress Cardiovascular: Regular Rate, Rhythm, No Edema, No Gallop, No JVD, No Murmur, Normal Peripheral Pulses Peripheral Pulses: 2+ Dorsalis Pedis (R), 2+ Left Dors-Pedis (L), 2+ Radial Pulses (R), 2+ Radial Pulses (L) Skin: normal color, warm/dry Objective Exam Vital Signs Date Time Temp Pulse Resp B/P (MAP) Pulse Ox O2 Delivery O2 Flow Rate FiO2 05/13/20 08:00 106 178/111 (133) 96 Nasal Cannula 2.00 05/13/20 07:45 36.6 05/13/20 07:39 Nasal Cannula 2.00 05/13/20 07:00 102 160/106 (124) 96 Nasal Cannula 2.00 05/13/20 07:00 102 05/13/20 06:00 101 18 151/100 (117) 95 Nasal Cannula 2.00 05/13/20 05:00 111 18 152/98 (116) 95 Nasal Cannula 2.00 05/13/20 04:00 108 16 143/90 (107) 92 Nasal Cannula 2.00 05/13/20 03:25 96 Nasal Cannula 2.00 05/13/20 03:25 37.0 Nasal Cannula 2.00 05/13/20 03:00 105 16 163/98 (119) 94 Nasal Cannula 2.00 05/13/20 01:00 103 16 179/110 (133) 94 Nasal Cannula 2.00 05/13/20 00:44 103 05/13/20 00:00 98 16 166/108 (127) 94 Nasal Cannula 2.00 05/12/20 23:15 95 Nasal Cannula 2.00 05/12/20 23:12 36.6 05/12/20 23:00 104 16 179/115 (136) 94 Nasal Cannula 2.00 05/12/20 22:39 Nasal Cannula 2.00 05/12/20 22:00 101 16 144/94 (111) 90 Room Air 05/12/20 21:00 98 16 144/89 (107) 90 Room Air 05/12/20 20:00 93 16 168/106 (126) 91 Room Air 05/12/20 19:30 93 Room Air 05/12/20 19:00 93 05/12/20 19:00 37.1 96 16 157/103 (121) 93 Room Air 05/12/20 18:00 98 12 170/105 (126) 90 Room Air 05/12/20 17:00 108 9 181/106 (131) 94 Room Air 05/12/20 16:00 94 Room Air 05/12/20 16:00 101 10 174/96 (122) 92 Room Air 05/12/20 15:00 102 18 207/125 (152) 92 Room Air 05/12/20 14:00 103 11 197/111 (139) 90 Room Air 05/12/20 13:00 96 10 204/120 (148) 90 Room Air 05/12/20 12:59 98 05/12/20 12:00 96 Room Air 05/12/20 12:00 93 22 220/136 (164) 95 Room Air 05/12/20 12:00 36.2 05/12/20 11:00 84 9 182/108 (132) 93 Room Air 05/12/20 08:52 96 17 166/108 (127) Room Air 05/12/20 08:50 92 05/12/20 08:48 98 Room Air 05/12/20 08:41 37.0 87 12 166/108 (127) 95 Room Air I & O 05/13/20 07:00 Intake Total 9150 ml Output Total 1985 ml Balance 7165 ml Capillary Refill : Less Than 3 Seconds General Appearance: No Apparent Distress, WD/WN, Chronically ill HEENT: PERRL/EOMI, Normal ENT Inspection, Pharynx Normal, Moist Mucous Membranes Neck: Full Range of Motion, Normal Inspection, Non Tender Respiratory: Chest Non Tender, Lungs Clear, Normal Breath Sounds, No Accessory Muscle Use, No Respiratory Distress Cardiovascular: Regular Rate, Rhythm, No Edema, No Gallop, No JVD, No Murmur, Normal Peripheral Pulses Peripheral Pulses: 2+ Dorsalis Pedis (R), 2+ Left Dors-Pedis (L), 2+ Radial Pulses (R), 2+ Radial Pulses (L) Gastrointestinal: soft, no organomegaly, no pulsatile mass, tenderness (epigastric, no guarding) Extremity: Normal Capillary Refill, Normal Inspection, Normal Range of Motion, Non Tender, No Calf Tenderness, No Pedal Edema Neurologic/Psychiatric: Alert, Oriented x3, No Motor/Sensory Deficits, Normal Mood/Affect Skin: Normal Color, Warm/Dry Lymphatic: No Adenopathy Results Lab Laboratory Tests 05/12/20 09:58: Glucometer 234H 05/12/20 10:52: Glucometer 227H 05/12/20 10:54: Sodium Level 139, Potassium Level 3.4L, Chloride Level 108H, Carbon Dioxide Level 24, Anion Gap 7, Blood Urea Nitrogen 24H, Creatinine 1.31H, Estimat Glomerular Filtration Rate 59, BUN/Creatinine Ratio 18, Glucose Level 252H, Calcium Level 7.7L 05/12/20 12:00: Glucometer 206H 05/12/20 17:57: Glucometer 216H 05/12/20 23:10: Glucometer 163H 05/13/20 03:25: White Blood Count 11.6H, Red Blood Count 4.09L, Hemoglobin 12.5L, Hematocrit 36L , Mean Corpuscular Volume 89, Mean Corpuscular Hemoglobin 31, Mean Corpuscular Hemoglobin Concent 34, Red Cell Distribution Width 12.9, Platelet Count 306, Mean Platelet Volume 10.1, Immature Granulocyte % (Auto) 0, Neutrophils (%) (Auto) 81H, Lymphocytes (%) (Auto) 10L, Monocytes (%) (Auto) 7, Eosinophils (%) (Auto) 1, Basophils (%) (Auto) 0, Neutrophils # (Auto) 9.4H, Lymphocytes # (Auto) 1.2, Monocytes # (Auto) 0.9, Eosinophils # (Auto) 0.1, Basophils # (Auto) 0.0, Immature Granulocyte # (Auto) 0.1, Sodium Level 141, Potassium Level 3.5L, Chloride Level 110H, Carbon Dioxide Level 18L, Anion Gap 13, Blood Urea Nitrogen 19H, Creatinine 1.11, Estimat Glomerular Filtration Rate > 60, BUN/Creatinine Ratio 17, Glucose Level 220H, Calcium Level 8.0L, Phosphorus Level 4.0, Magnesium Level 1.7, Total Bilirubin 0.2, Direct Bilirubin 0.1, Indirect Bilirubin 0.1, Aspartate Amino Transf (AST/SGOT) 16, Alanine Aminotransferase (ALT/SGPT) 18, Alkaline Phosphatase 61, Total Protein 5.9L, Albumin 2.6L, Amylase Level 139H, Lipase 82H Microbiology 05/12/20 MRSA Screen - Final, Complete MRSA not isolated Assessment/Plan Assessment/Plan Assessment/Plan ASSESSMENT Acute Pancreatitis Uncontrolled DM w/insulin management Hypertension Nephrolithiasis w/o obstruction per CT scan Seizure hx Lipase at 82 down from >5139 yesterday PLAN Recheck lipase levels IVF Pain and Nausea medications as needed for control NPO bowel rest No need for EGD Will get u/s of gallbladder for evaluation for stones DARNELL RUSSELL DO 05/13/20 1656: Subjective Subjective/Events-last exam Patient having headache and slight nausea. Abdomen is slightly better than yesterday. Pain moderate. Patient n.p.o. denies fever sweats chills shortness of breath or chest pain. Objective Exam General Appearance: No Apparent Distress, WD/WN HEENT: PERRL/EOMI, Normal ENT Inspection Neck: Normal Inspection, Non Tender Respiratory: Chest Non Tender, No Accessory Muscle Use, No Respiratory Distress Cardiovascular: No JVD, Tachycardia Gastrointestinal: soft, no organomegaly, tenderness (epigastric, no guarding) Extremity: Normal Capillary Refill, Normal Range of Motion, Non Tender Neurologic/Psychiatric: Alert, Oriented x3, No Motor/Sensory Deficits, Normal Mood/Affect Skin: Normal Color, Warm/Dry Lymphatic: No Adenopathy Assessment/Plan Assessment/Plan Assessment/Plan Acute Pancreatitis Uncontrolled DM w/insulin management Hypertension Nephrolithiasis w/o obstruction per CT scan Seizure hx Lipase at 82 down from >5139 yesterday PLAN IVF Pain and Nausea medications as needed for control NPO bowel rest Will get u/s of gallbladder for evaluation for stones tomorrow when u/s available Supervisory-Addendum Brief Verification & Attestation Participated in pt care: history, MDM, physical Personally performed: exam, history, MDM, supervision of care Care discussed with: Medical Student Procedures: n/a Results interpretation: Verified all documentation Verification and Attestation of Medical Student E/M Service A medical student performed and documented this service in my presence. I reviewed and verified all information documented by the medical student and made modifications to such information, when appropriate. I personally performed the physical exam and medical decision making. Darnell Russell, May 13, 2020,16:56 DIEGO JUNG MED STUDENT May 13, 2020 08:45 DARNELL RUSSELL DO May 13, 2020 16:56
[2020-05-13] MEDS: ENOXAPARIN 40 MG/0.4 ML (LOVENOX) SYR SC SCH (10:24)
[2020-05-13] MEDS: ALPRAZolam 0.25 MG (XANAX) TAB PO PRN ×3 (10:24→20:21)
--- NOTE | 2020-05-13 11:00 | Progress Note - Hospitalist ---
Subjective HPI/CC On Admission Date Seen by Provider: May 13, 2020 Time Seen by Provider: 11:00 CC: Acute pancreatitis HPI: This is a 45yoWM clinic patient of [facility] who is known to me from prior IRF admit for CVA who presented to the [facility] ER with abdominal pain and was found to have severe pancreatitis. CT scan reviewed. Patient continues to smoke and he states he does not drink alcohol. Headache reported. Elevated sugar and BP noted so he is requiring ICU admit. Subjective/Events-last exam Vomiting and dry heaving Dr Russell updated Dr Antonio giving meds for BP OOC Pain improved Abd USG ordered Review of Systems General: Fatigue Gastrointestinal: Nausea, Vomiting, Abdominal Pain Objective Exam Vital Signs Vital Signs Date Time Temp Pulse Resp B/P (MAP) Pulse Ox O2 Delivery O2 Flow Rate FiO2 05/13/20 15:55 37.6 107 20 146/78 (100) 96 Room Air 05/13/20 13:00 2.00 Capillary Refill : Less Than 3 Seconds General Appearance: No Apparent Distress, WD/WN, Anxious, Chronically ill Respiratory: Lungs Clear Cardiovascular: Regular Rate, Rhythm Neurologic/Psychiatric: Alert, Oriented x3, No Motor/Sensory Deficits, Depressed Affect Results/Procedures Lab Laboratory Tests 05/13/20 03:25 Patient resulted labs reviewed. Assessment/Plan Assessment and Plan Assess & Plan/Chief Complaint Assessment: Acute pancreatitis Elevated sugar severe Elevated BP severe Smoker h/o CVA Seizure d/o Plan: ICU Pain control Nausea meds BP control BS control Dr Antonio consulted for BP Dr Russell consulted 05/13/20: Move to floor Lipase near normal Abd usg ordered Diagnosis/Problems Diagnosis/Problems (1) Acute pancreatitis Status: Acute Qualifiers: Pancreatitis type: unspecified pancreatitis type Acute pancreatitis complication: no infection or necrosis Qualified Codes: K85.90 - Acute pancreatitis without necrosis or infection, unspecified (2) Diabetes mellitus, insulin dependent (IDDM), uncontrolled Status: Acute (3) Essential hypertension Status: Acute ALLENALLAN DO May 13, 2020 11:00
--- NOTE | 2020-05-13 11:07 | Consultation-Cardiology ---
HPI-Cardiology Cardiology Consultation Date of Consultation 05/13/20 Date of Admission Time Seen by Provider: 11:00 Indication: Acute pancreatitis HPI 45 years old gentleman with history of hypertension, follows with Dr. Perez as an outpatient. Started to have abdominal pain, cramps nausea, came into the emergency room and admitted with acute pancreatitis. He denied any chest pain, denied any shortness of breath, reporting some improvement of his abdominal pain at this point. Denied any alcohol consumption, he is an active smoker. Home Medications & Allergies Allergies: Coded Allergies: NKANo Known Allergies (Verified Allergy, Unknown, 05/19/05) clindamycin (Verified Allergy, Unknown, 05/12/20) Home Medication List Reviewed: Yes [id number] Hx Patient Social History Marital Status: single Employed/Student: unemployed Recreational Drug Use: No Smoking Status: Current Everyday Smoker Type Used: Cigarettes Recent Hopitalizations: Yes (ku for cva 1-20) Have you traveled recently?: No Alcohol Use?: Yes Immunizations Up To Date Date of Pneumonia Vaccine: Mar 04, 2019 Date of Influenza Vaccine: Mar 04, 2019 Past Medical History Discussed below Family Medical History Significant Family History: No Pertinent Family Hx Family History: Colon cancer MATERNAL GRANDFATHER Completed stroke 19 FATHER Deafness or hearing loss 19 FATHER Diabetes mellitus 19 MOTHER (MOM, BROTHER, AUNTS) Gastroenteritis 19 MOTHER Hypercholesterolemia 19 FATHER Hypertension 19 FATHER 19 MOTHER Neoplasm PATERNAL GRANDFATHER (STOMACH) MATERNAL GRANDFATHER (COLON) Psychosocial problem 19 MOTHER Seizure disorder 19 FATHER Review of Systems-General Review of Systems Constitutional: see HPI, malaise, weakness EENTM: see HPI; No hearing loss, No ear pain, No vision loss Respiratory: No no symptoms reported; see HPI; No cough, No dyspnea on exertion, No hemoptysis, No orthopnea, No phlegm, No short of breath, No stridor, No wheezing, No other Cardiovascular: no symptoms reported, see HPI; No chest pain, No edema, No Hx of Intervention, No palpitations, No syncope, No vascular heart diseas, No other Gastrointestinal: abdominal pain, nausea Genitourinary: No dysuria, No hematuria Musculoskeletal: see HPI, back pain; No muscle pain, No muscle stiffness; muscle cramps Skin: see HPI; No change in color, No change in hair/nails Psychiatric/Neurological: See HPI; Denies Numbness, Denies Tingling, Denies Weakness All Other Systems Reviewed Negative Unless Noted: Yes (Negative excepted noted.) Reviewed Test Results Reviewed Test Results Lab Laboratory Tests Test 05/12/20 12:00 05/12/20 17:57 05/12/20 23:10 05/13/20 03:25 Range/Units Glucometer 206 H 216 H 163 H 70-110 MG/DL White Blood Count 11.6 H 4.3-11.0 10^3/uL Red Blood Count 4.09 L 4.30-5.52 10^6/uL Hemoglobin 12.5 L 13.3-17.7 g/dL Hematocrit 36 L 40-54 % Mean Corpuscular Volume 89 80-99 fL Mean Corpuscular Hemoglobin 31 25-34 pg Mean Corpuscular Hemoglobin Concent 34 32-36 g/dL Red Cell Distribution Width 12.9 10.0-14.5 % Platelet Count 306 130-400 10^3/uL Mean Platelet Volume 10.1 9.0-12.2 fL Immature Granulocyte % (Auto) 0 % Neutrophils (%) (Auto) 81 H 42-75 % Lymphocytes (%) (Auto) 10 L 12-44 % Monocytes (%) (Auto) 7 0-12 % Eosinophils (%) (Auto) 1 0-10 % Basophils (%) (Auto) 0 0-10 % Neutrophils # (Auto) 9.4 H 1.8-7.8 10^3/uL Lymphocytes # (Auto) 1.2 1.0-4.0 10^3/uL Monocytes # (Auto) 0.9 0.0-1.0 10^3/uL Eosinophils # (Auto) 0.1 0.0-0.3 10^3/uL Basophils # (Auto) 0.0 0.0-0.1 10^3/uL Immature Granulocyte # (Auto) 0.1 0.0-0.1 10^3/uL Sodium Level 141 135-145 MMOL/L Potassium Level 3.5 L 3.6-5.0 MMOL/L Chloride Level 110 H 98-107 MMOL/L Carbon Dioxide Level 18 L 21-32 MMOL/L Anion Gap 13 5-14 MMOL/L Blood Urea Nitrogen 19 H 7-18 MG/DL Creatinine 1.11 0.60-1.30 MG/DL Estimat Glomerular Filtration Rate > 60 BUN/Creatinine Ratio 17 Glucose Level 220 H 70-105 MG/DL Calcium Level 8.0 L 8.5-10.1 MG/DL Phosphorus Level 4.0 2.3-4.7 MG/DL Magnesium Level 1.7 1.6-2.4 MG/DL Total Bilirubin 0.2 0.1-1.0 MG/DL Direct Bilirubin 0.1 0.0-0.3 MG/DL Indirect Bilirubin 0.1 MG/DL Aspartate Amino Transf (AST/SGOT) 16 5-34 U/L Alanine Aminotransferase (ALT/SGPT) 18 0-55 U/L Alkaline Phosphatase 61 40-136 U/L Total Protein 5.9 L 6.4-8.2 GM/DL Albumin 2.6 L 3.2-4.5 GM/DL Amylase Level 139 H 25-125 U/L Lipase 82 H 8-78 U/L Physical Exam Physical Exam Vital Signs Vital Signs - First Documented 05/12/20 05/12/20 03:40 22:39 Temp 36.6 Pulse 116 Resp 20 B/P (MAP) 215/118 (150) Pulse Ox 97 O2 Delivery Room Air O2 Flow Rate 2.00 Capillary Refill : Less Than 3 Seconds Height, Weight, BMI Height: 5'10.00" Weight: 185lbs. 2.0oz. 83.446250zp; 28.00 BMI Method: General Appearance: No Apparent Distress, WD/WN, Chronically ill Eyes: Right Eye Normal Inspection, Right Eye PERRL; Bilateral Eye EOMI HEENT: PERRL/EOMI, Normal ENT Inspection, Pharynx Normal, Moist Mucous Membranes Neck: Full Range of Motion, Normal Inspection, Non Tender Respiratory: Chest Non Tender, Lungs Clear, Normal Breath Sounds, No Accessory Muscle Use, No Respiratory Distress Cardiovascular: Regular Rate, Rhythm, No Edema, No Gallop, No JVD, No Murmur, Normal Peripheral Pulses Gastrointestinal: Normal Bowel Sounds, No Organomegaly, No Pulsatile Mass, Sof t, Tenderness Rectal: Deferred Back: Normal Inspection, No CVA Tenderness, No Vertebral Tenderness Extremity: Normal Capillary Refill, Normal Inspection, Normal Range of Motion, Non Tender, No Calf Tenderness, No Pedal Edema Neurologic/Psychiatric: Alert, Oriented x3, No Motor/Sensory Deficits, Normal Mood/Affect Skin: Normal Color, Warm/Dry Lymphatic: No Adenopathy A/P-Cardiology Admission Diagnosis Acute pancreatitis Sinus tachycardia Hypertension Seizure disorder Assessment/Plan Acute pancreatitis, abdominal pain, reporting mild improvement. Managed by primary care team. Continue to monitor Malignant hypertension, labile blood pressure, I will continue adjusting his medication and try to achieve adequate blood pressure control. Being in severe pain will continue to increase his blood pressure Sinus tachycardia, probably secondary to pain and pancreatitis. Started on beta blockers. Planning to evaluate 2-D echo. Continue to monitor Nephrolithiasis, continue to monitor History of seizure disorder, managed by primary care team CHARMAINE BENITEZ MD May 13, 2020 11:07
[2020-05-13] MEDS: ACETAMINOPHEN 325 MG TABLET PO PRN (11:56)
[2020-05-13] MEDS: cloNIDine 0.1 MG (CATAPRES) TAB PO SCH ×2 (11:56→20:21)
[2020-05-13] MEDS: PROMETHAZINE INJ 25 MG/ML (PHENERGAN) AMP IVP PRN ×2 (14:52→20:18)
[2020-05-13] MEDS: HYDROcodone/APAP 5 MG/325 MG (LORTAB) TAB PO PRN ×2 (14:57→20:22)
[2020-05-13] MEDS: MELATONIN 3 MG TABLET PO PRN (20:22)
[2020-05-14] MEDS: inSUlin ASPART (NovoLOG) 1 UNIT/0.01 ML (CHARGE PER UNIT) SC SCH ×5 (00:37→23:40)
[2020-05-14] MEDS: meTOprolol 5 MG/5 ML (LOPRESSOR) VIAL IV SCH ×5 (00:41→23:40)
[2020-05-14] MEDS: cloNIDine 0.1 MG (CATAPRES) TAB PO PRN ×2 (00:43→16:14)
[2020-05-14] MEDS: NS IV 1000 ML 1,000 ML IV SCH ×3 (02:10→15:33)
[2020-05-14 05:49] LABS: BASOPHILS % (AUTO) 1 % (0-10); EOSINOPHILS # (AUTO) 0.1 10^3/uL (0.0-0.3); EOSINOPHILS % (AUTO) 1 % (0-10); HEMATOCRIT 32 % (40-54); HEMOGLOBIN 10.7 g/dL (13.3-17.7); LYMPHOCYTES # (AUTO) 1.8 10^3/uL (1.0-4.0); LYMPHOCYTES % (AUTO) 23 % (12-44); MEAN CORPUSCULAR HEMOGLOBIN 31 pg (25-34); MEAN CORPUSCULAR HGB CONC 33 g/dL (32-36); MEAN CORPUSCULAR VOLUME 92 fL (80-99); MEAN PLATELET VOLUME 9.8 fL (9.0-12.2); MONOCYTES # (AUTO) 0.7 10^3/uL (0.0-1.0); MONOCYTES % (AUTO) 9 % (0-12); NEUTROPHILS # (AUTO) 5.1 10^3/uL (1.8-7.8); NEUTROPHILS % (AUTO) 66 % (42-75); PLATELET COUNT 244 10^3/uL (130-400); WHITE BLOOD COUNT 7.6 10^3/uL (4.3-11.0)
[2020-05-14 06:08] LABS: ALANINE AMINOTRANSFERASE 15 U/L (0-55); ALBUMIN 2.2 GM/DL (3.2-4.5); ALKALINE PHOSPHATASE 54 U/L (40-136); AMYLASE 48 U/L (25-125); BILIRUBIN,TOTAL 0.2 MG/DL (0.1-1.0); BUN/CREATININE RATIO 20; CALCIUM 7.5 MG/DL (8.5-10.1); CARBON DIOXIDE 18 MMOL/L (21-32); CHLORIDE 113 MMOL/L (98-107); CREATININE SERUM 1.09 MG/DL (0.60-1.30); GFR ESTIMATED > 60; GLUCOSE 200 MG/DL (70-105); LIPASE 34 U/L (8-78); POTASSIUM 3.3 MMOL/L (3.6-5.0); SODIUM 139 MMOL/L (135-145); TOTAL PROTEIN 4.9 GM/DL (6.4-8.2)
[2020-05-14] MEDS: hydrALAZINE (APESOLINE) 20 MG/ML VIAL IV PRN (06:25)
--- NOTE | 2020-05-14 06:42 | Progress Note - Surgery ---
GREY DASILVA MED STUDENT 05/14/20 0642: Subjective Date Seen by a Provider: May 14, 2020 Time Seen by a Provider: 06:20 Subjective/Events-last exam Patient reports epigastric abdominal pain rated at a 2/10 currently. Describes the pain as a dull ache that is doesn't radiate and is constant. Sometimes coughing and moving worsen the pain. Pain meds are controlling his pain adequately he reports. Still having significant nausea, but no episodes of vomiting per pt. report. He denies subjective fevers. Denies cough, SOB, chest pain, headaches, or blurry vision. Reports that he slept a little over night. States last BM was thursday night. Denies issues voiding. Reports wanting some ice chips this morning as he's feeling dry. Review of Systems General: No Chills, No Night Sweats HEENT: No Head Aches, No Visual Changes Pulmonary: No Dyspnea, No Cough Cardiovascular: No: Chest Pain, Palpitations Gastrointestinal: Nausea, Abdominal Pain (epigastric pain); No: Vomiting, Diarrhea, Constipation Genitourinary: No Dysuria, No Frequency Musculoskeletal: No: neck pain, shoulder pain Neurological: No: Weakness, Numbness Objective Exam Vital Signs Date Time Temp Pulse Resp B/P (MAP) Pulse Ox O2 Delivery O2 Flow Rate FiO2 05/14/20 04:59 36.7 93 18 177/95 (122) 96 Room Air 05/14/20 01:00 90 05/13/20 23:59 36.9 103 18 174/93 (120) 94 Room Air 05/13/20 23:11 37.5 05/13/20 20:52 37.5 05/13/20 20:50 37.5 05/13/20 20:00 37.5 105 16 183/101 (128) 97 Room Air 05/13/20 19:00 107 05/13/20 15:55 37.6 107 20 146/78 (100) 96 Room Air 05/13/20 14:05 36.6 113 20 194/113 (140) 93 Room Air 05/13/20 13:00 106 31 151/93 (112) 91 Nasal Cannula 2.00 05/13/20 12:35 115 05/13/20 12:00 115 31 151/93 (112) 93 Nasal Cannula 2.00 05/13/20 12:00 96 Nasal Cannula 2.00 05/13/20 11:26 36.9 05/13/20 11:00 111 12 162/96 (118) 91 Nasal Cannula 2.00 05/13/20 10:00 112 28 220/136 (164) 93 Nasal Cannula 2.00 05/13/20 09:00 107 17 168/105 (126) 93 Nasal Cannula 2.00 05/13/20 08:00 106 178/111 (133) 96 Nasal Cannula 2.00 05/13/20 08:00 96 Nasal Cannula 2.00 05/13/20 07:45 36.6 05/13/20 07:39 Nasal Cannula 2.00 05/13/20 07:00 102 160/106 (124) 96 Nasal Cannula 2.00 05/13/20 07:00 102 I & O 05/14/20 07:00 Intake Total 9150 ml Output Total 1050 ml Balance 8100 ml Capillary Refill : Less Than 3 Seconds General Appearance: No Apparent Distress, WD/WN HEENT: PERRL/EOMI, Pharynx Normal Neck: Normal Inspection, Non Tender Respiratory: Chest Non Tender, Lungs Clear, Normal Breath Sounds, No Accessory Muscle Use; No Crackles, No Rhonci, No Wheezing Cardiovascular: Regular Rate, Rhythm, No Edema, Normal Peripheral Pulses Peripheral Pulses: 2+ Dorsalis Pedis (R), 2+ Left Dors-Pedis (L), 2+ Radial Pu lses (R), 2+ Radial Pulses (L) Gastrointestinal: normal bowel sounds, soft; No guarding, No rebound; tende rness (epigastric, no guarding) Extremity: Normal Capillary Refill, Normal Range of Motion, Non Tender, No Calf Tenderness Neurologic/Psychiatric: Alert, Oriented x3, No Motor/Sensory Deficits, Depressed Affect Skin: Normal Color, Warm/Dry Lymphatic: No Adenopathy Results Lab Laboratory Tests 05/13/20 11:28: Glucometer 292H 05/13/20 17:49: Glucometer 193H 05/14/20 00:35: Glucometer 180H 05/14/20 05:31: White Blood Count 7.6, Red Blood Count 3.49L, Hemoglobin 10.7L, Hematocrit 32L, Mean Corpuscular Volume 92, Mean Corpuscular Hemoglobin 31, Mean Corpuscular Hemoglobin Concent 33, Red Cell Distribution Width 13.6, Platelet Count 244, Mean Platelet Volume 9.8, Immature Granulocyte % (Auto) 1, Neutrophils (%) (Auto) 66, Lymphocytes (%) (Auto) 23, Monocytes (%) (Auto) 9, Eosinophils (%) (Auto) 1, Basophils (%) (Auto) 1, Neutrophils # (Auto) 5.1, Lymphocytes # (Auto) 1.8, Monocytes # (Auto) 0.7, Eosinophils # (Auto) 0.1, Basophils # (Auto) 0.0, Immature Granulocyte # (Auto) 0.0, Sodium Level 139, Potassium Level 3.3L, Chloride Level 113H, Carbon Dioxide Level 18L, Anion Gap 8, Blood Urea Nitrogen 22H, Creatinine 1.09, Estimat Glomerular Filtration Rate > 60, BUN/Creatinine Ratio 20, Glucose Level 200H, Calcium Level 7.5L, Corrected Calcium 8.9, Total Bilirubin 0.2, Aspartate Amino Transf (AST/SGOT) 14, Alanine Aminotransferase (ALT/SGPT) 15, Alkaline Phosphatase 54, Total Protein 4.9L, Albumin 2.2L, Amylase Level 48, Lipase 34 Microbiology 05/12/20 MRSA Screen - Final, Complete MRSA not isolated Assessment/Plan Assessment/Plan Assessment/Plan Acute Pancreatitis Elevated Lipase-Resolved Uncontrolled DM w/insulin management Hypertension Nephrolithiasis w/o obstruction per CT scan Seizure hx PLAN Continue IVF Pain and Nausea medications as needed for control Antihypertensives PRN and scheduled for HTN NPO bowel rest Lipase WNL today at 34 Will get u/s of gallbladder today to evaluate for presence of stones ADDIS RUSSELL DO 05/14/202007: Subjective Subjective/Events-last exam Patient states that his epigastric abdominal pain pretty much has resolved at this time. He is n.p.o. The nausea has improved. Not having any emesis. He has no other complaints at this time. Denies any fever sweats chills shortness of breath or chest pain. Had gallbladder ultrasound performed which demonstrated normal gallbladder unremarkable study. Objective Exam General Appearance: No Apparent Distress, WD/WN Neck: Normal Inspection, Non Tender Respiratory: Chest Non Tender, No Accessory Muscle Use, No Respiratory Distress Cardiovascular: Regular Rate, Rhythm, No JVD Gastrointestinal: non tender, soft; No guarding, No rebound Extremity: Non Tender, No Calf Tenderness Neurologic/Psychiatric: Alert, Oriented x3, No Motor/Sensory Deficits Skin: Normal Color, Warm/Dry Lymphatic: No Adenopathy Assessment/Plan Assessment/Plan Assessment/Plan Acute Pancreatitis Elevated Lipase-Resolved Uncontrolled DM w/insulin management Hypertension Nephrolithiasis w/o obstruction per CT scan Seizure hx PLAN Continue IVF Pain and Nausea medications as needed for control Antihypertensives PRN and scheduled for HTN start clears Lipase WNL today at 34 u/s of gallbladder no stones Supervisory-Addendum Brief Verification & Attestation Participated in pt care: history, MDM, physical Personally performed: exam, history, MDM, supervision of care Care discussed with: Medical Student Procedures: n/a Results interpretation: Verified all documentation Verification and Attestation of Medical Student E/M Service A medical student performed and documented this service in my presence. I reviewed and verified all information documented by the medical student and made modifications to such information, when appropriate. I personally performed the physical exam and medical decision making. Addis Russell, May 14, 2020,20:07 GREY DASILVA MED STUDENT May 14, 2020 06:42 ADDIS RUSSELL DO May 14, 2020 20:08
[2020-05-14] MEDS: SENNA W/DOCUSATE (SENOKOT S) TABLET PO SCH ×2 (08:58→20:07)
[2020-05-14] MEDS: amLODIPine 5 MG (NORVASC) TAB PO SCH (08:59)
[2020-05-14] MEDS: cloNIDine 0.1 MG (CATAPRES) TAB PO SCH ×2 (08:59→20:14)
--- NOTE | 2020-05-14 09:36 | Diagnostic Imaging Report ---
PROCEDURE: US Gallbladder. TECHNIQUE: Multiple real-time grayscale images were obtained over the right upper quadrant in various projections. INDICATION: Right upper quadrant pain. FINDINGS: Liver measures 20 cm. There is hepatopetal flow in main portal vein. No biliary duct dilatation. Common bile that measures 5 mm. There is no cholelithiasis, gallbladder wall thickening or pericholecystic fluid. Pancreas not well visualized due to bowel gas. Aorta is nonaneurysmal. IVC is patent. Right kidney is normal. No ascites. IMPRESSION: Unremarkable right quadrant ultrasound. Dictated by: Dictated on workstation # [id number]
--- NOTE | 2020-05-14 09:57 | Progress Note ---
Subjective Subjective Date Seen by Provider: May 14, 2020 Time Seen by Provider: 09:30 Je is a 45 yo male that presented to the ER on 05/12 with acute on chronic pancreatitis. Pt was alert and oriented laying in bed watching TV when I entered the room. Pt had no complaints of pain and denied pain to palpation of his abdomen. Pt is on IV morphine with the last dose being last night at 2200. Pt denied nausea, SOB, or difficulties urinating. Pt states that he hasn't had a BM since last Thursday morning and has been NPO since that time.Pts only complaint is of thirst. Review of Systems General: No Chills, No Night Sweats; Fatigue, Malaise, Appetite, Other HEENT: No Head Aches, No Visual Changes Pulmonary: No Dyspnea, No Cough Cardiovascular: No: Chest Pain, Palpitations Gastrointestinal: No: Nausea, Vomiting, Abdominal Pain, Diarrhea, Constipation Genitourinary: No Dysuria, No Frequency, No Hematuria Musculoskeletal: No: neck pain, back pain Neurological: No: Weakness, Numbness, Confusion All Other Systems Reviewed All Other Systems Reviewed: Yes (Negative excepted noted.) Objective Exam Vital Signs Vital Signs - First Documented 05/12/20 05/12/20 03:40 22:39 Temp 36.6 Pulse 116 Resp 20 B/P (MAP) 215/118 (150) Pulse Ox 97 O2 Delivery Room Air O2 Flow Rate 2.00 Capillary Refill : Less Than 3 Seconds General Appearance: No Apparent Distress, WD/WN Eyes: Right Eye Normal Inspection, Right Eye PERRL; Bilateral Eye EOMI HEENT: PERRL/EOMI, Pharynx Normal Neck: Normal Inspection, Non Tender Respiratory: Chest Non Tender, Lungs Clear, Normal Breath Sounds, No Accessory Muscle Use, No Respiratory Distress; No Crackles, No Rhonci, No Wheezing Cardiovascular: Regular Rate, Rhythm, No Edema, No Gallop, Normal Peripheral Pulses Gastrointestinal: Normal Bowel Sounds, No Organomegaly, No Pulsatile Mass, Non Tender, Soft, Tenderness Rectal: Deferred Back: Normal Inspection, No CVA Tenderness, No Vertebral Tenderness Extremity: Normal Capillary Refill, Non Tender, No Calf Tenderness, No Pedal Edema Neurologic/Psychiatric: Alert, Oriented x3, No Motor/Sensory Deficits, Depressed Affect Skin: Normal Color, Warm/Dry Lymphatic: No Adenopathy (cervical, inguinal, or axillary) Results Lab Laboratory Tests 05/13/20 11:28: Glucometer 292H 05/13/20 17:49: Glucometer 193H 05/14/20 00:35: Glucometer 180H 05/14/20 05:31: White Blood Count 7.6, Red Blood Count 3.49L, Hemoglobin 10.7L, Hematocrit 32L, Mean Corpuscular Volume 92, Mean Corpuscular Hemoglobin 31, Mean Corpuscular Hemoglobin Concent 33, Red Cell Distribution Width 13.6, Platelet Count 244, Mean Platelet Volume 9.8, Immature Granulocyte % (Auto) 1, Neutrophils (%) (Auto) 66, Lymphocytes (%) (Auto) 23, Monocytes (%) (Auto) 9, Eosinophils (%) (Auto) 1, Basophils (%) (Auto) 1, Neutrophils # (Auto) 5.1, Lymphocytes # (Auto) 1.8, Monocytes # (Auto) 0.7, Eosinophils # (Auto) 0.1, Basophils # (Auto) 0.0, Immature Granulocyte # (Auto) 0.0, Sodium Level 139, Potassium Level 3.3L, Chloride Level 113H, Carbon Dioxide Level 18L, Anion Gap 8, Blood Urea Nitrogen 22H, Creatinine 1.09, Estimat Glomerular Filtration Rate > 60, BUN/Creatinine Ratio 20, Glucose Level 200H, Calcium Level 7.5L, Corrected Calcium 8.9, Total Bilirubin 0.2, Aspartate Amino Transf (AST/SGOT) 14, Alanine Aminotransferase (ALT/SGPT) 15, Alkaline Phosphatase 54, Total Protein 4.9L, Albumin 2.2L, Amylase Level 48, Lipase 34 Microbiology 05/12/20 MRSA Screen - Final, Complete MRSA not isolated Assessment/Plan Assessment/Plan Assessment and Plan Assessment: acute on chronic pancreatitis uncontrolled insulin dependent diabetes- blood glucose was at 200 hypertension- BP of 154/85 anemia- Hgb decreasing from 12.5 yesterday to 10.5 today Plan: continue pain medication as needed IV fluids monitor Pt with ice chips and progress fluid restrictions Problems: (1) Acute pancreatitis Qualifiers: Qualified Codes: K85.90 - Acute pancreatitis without necrosis or infection, unspecified (2) Diabetes mellitus, insulin dependent (IDDM), uncontrolled (3) Essential hypertension Supervisory-Addendum Brief Verification & Attestation Participated in pt care: history, physical Personally performed: exam, history Care discussed with: Medical Student Procedures: n/a Verification and Attestation of Medical Student E/M Service A medical student performed and documented this service in my presence. I reviewed and verified all information documented by the medical student and made modifications to such information, when appropriate. I personally performed the physical exam and medical decision making. Perfecto Crowder, May 14, 2020,17:55 THIERNO ELIZALDE MED STUDENT May 14, 2020 09:57 PERFECTO CROWDER MD May 14, 2020 17:55
--- NOTE | 2020-05-14 10:12 | Cardiology Progress Note ---
Subjective Date Seen by Provider: May 14, 2020 Time Seen by Provider: 10:11 Subjective/Events-last exam Patient is laying down in bed. Having abdominal pain, no chest pain or shortness of breath Review of Systems General: No Chills, No Night Sweats, No Fatigue, No Malaise, No Appetite, No Other HEENT: No Head Aches, No Visual Changes, No Eye Pain, No Ear Pain, No D ysphasia, No Sinus Congestion, No Post Nasal Drip, No Sore Throat, No Other Pulmonary: No Dyspnea, No Cough, No Pleuritic Chest Pain, No Other Cardiovascular: No: Chest Pain, Palpitations, Orthopnea, Paroxysmal Noc. Dyspnea, Edema, Lt Headedness, Other Objective-Cardiology Exam Last Set of Vital Signs Vital Signs 05/13/20 05/14/20 13:00 08:00 Temp 37.1 Pulse 99 Resp 18 B/P (MAP) 154/85 (108) Pulse Ox 97 O2 Delivery Room Air O2 Flow Rate 2.00 Capillary Refill : Less Than 3 Seconds I&O Intake and Output 05/14/20 00:00 Intake Total 8300 ml Output Total 1050 ml Balance 7250 ml Intake Oral 0 ml IV Total 8300 ml Output Urine Total 1050 ml # Voids 2 General: Alert, Oriented X3, Cooperative HEENT: Atraumatic, PERRLA Neck: Supple, No JVD, No Thyromegaly Lungs: Clear to Auscultation, Normal Air Movement Heart: Regular Rate, Normal S1, Normal S2, No Murmurs Abdomen: Normal Bowel Sounds, Soft, No Hepatosplenomegaly, No Masses, Other (dominant discomfort) Extremities: No Clubbing, No Cyanosis, No Edema, Normal Pulses, No Tenderness/Swelling Skin: No Rashes, No Breakdown, No Significant Lesion Neuro: Normal Gait, Normal Speech, Strength at 5/5 X4 Ext, Normal Tone, Sensation Intact Psych/Mental Status: Mental Status NL, Mood NL Results Lab Laboratory Tests 05/14/20 05:31 A/P-Cardiology Admission Diagnosis Acute pancreatitis Sinus tachycardia Hypertension Seizure disorder Assessment/Plan Acute pancreatitis, abdominal pain, reporting mild improvement. Managed by primary care team. Continue to monitor Hypokalemia, replace and monitor Malignant hypertension, labile blood pressure, I will continue adjusting his medication and try to achieve adequate blood pressure control. Being in severe pain will continue to increase his blood pressure Sinus tachycardia, probably secondary to pain and pancreatitis. Started on beta blockers. Planning to evaluate 2-D echo. Continue to monitor Nephrolithiasis, continue to monitor History of seizure disorder, managed by primary care team CHARMAINE BENITEZ MD May 14, 2020 10:12
[2020-05-14] MEDS: POTASSIUM CL 10MEQ/50ML IVPB 50 ML IV SCH ×2 (10:34→11:43)
--- NOTE | 2020-05-14 12:48 | Progress Note ---
Subjective Review of Systems Pulmonary: No Dyspnea, No Cough Cardiovascular: No: Chest Pain, Palpitations, Edema Gastrointestinal: Constipation; No: Nausea, Vomiting, Abdominal Pain Neurological: No: Weakness, Incoordination Objective Exam Last Set of Vital Signs Vital Signs Date Time Temp Pulse Resp B/P (MAP) Pulse Ox O2 Delivery O2 Flow Rate FiO2 05/14/20 11:39 37.0 95 20 167/88 (114) 96 Room Air 05/13/20 13:00 2.00 Capillary Refill : Less Than 3 Seconds I&O Intake and Output 05/14/20 00:00 Intake Total 8300 ml Output Total 1050 ml Balance 7250 ml Intake Oral 0 ml IV Total 8300 ml Output Urine Total 1050 ml # Voids 2 General: Alert, Oriented X3 Lungs: Clear to Auscultation, Normal Air Movement Heart: Regular Rate, No Murmurs Abdomen: Soft, No Tenderness, No Masses Extremities: No Edema, No Tenderness/Swelling Skin: No Rashes, No Breakdown Neuro: Cranial Nerves 3-12 NL Psych/Mental Status: Mental Status NL, Mood NL Results/Procedures Lab Laboratory Tests 05/13/20 17:49: Glucometer 193H 05/14/20 00:35: Glucometer 180H 05/14/20 05:31: White Blood Count 7.6, Red Blood Count 3.49L, Hemoglobin 10.7L, Hematocrit 32L, Mean Corpuscular Volume 92, Mean Corpuscular Hemoglobin 31, Mean Corpuscular Hemoglobin Concent 33, Red Cell Distribution Width 13.6, Platelet Count 244, Mean Platelet Volume 9.8, Immature Granulocyte % (Auto) 1, Neutrophils (%) (Auto) 66, Lymphocytes (%) (Auto) 23, Monocytes (%) (Auto) 9, Eosinophils (%) (Auto) 1, Basophils (%) (Auto) 1, Neutrophils # (Auto) 5.1, Lymphocytes # (Auto) 1.8, Monocytes # (Auto) 0.7, Eosinophils # (Auto) 0.1, Basophils # (Auto) 0.0, Immature Granulocyte # (Auto) 0.0, Sodium Level 139, Potassium Level 3.3L, Chloride Level 113H, Carbon Dioxide Level 18L, Anion Gap 8, Blood Urea Nitrogen 22H, Creatinine 1.09, Estimat Glomerular Filtration Rate > 60, BUN/Creatinine Ratio 20, Glucose Level 200H, Calcium Level 7.5L, Corrected Calcium 8.9, Total Bilirubin 0.2, Aspartate Amino Transf (AST/SGOT) 14, Alanine Aminotransferase (ALT/SGPT) 15, Alkaline Phosphatase 54, Total Protein 4.9L, Albumin 2.2L, Amylase Level 48, Lipase 34 05/14/20 11:06: Glucometer 150H Microbiology 05/12/20 MRSA Screen - Final, Complete MRSA not isolated Assessment/Plan Assessment/Plan (1) Acute pancreatitis Status: Acute Assessment & Plan: 05/14: Denies pain this AM, will advance to [facility], Amylase/Lipase normal, US gallbladder normal, Will get lipid panel today Qualifiers: Qualified Codes: K85.90 - Acute pancreatitis without necrosis or infection, unspecified (2) Diabetes mellitus, insulin dependent (IDDM), uncontrolled Status: Acute Assessment & Plan: 05/14: SSI/Accuchecks, A1c pending (3) Essential hypertension Status: Acute Assessment & Plan: 05/14: Continue meds, Decrease IVFs (4) Acute kidney failure Status: Resolved (5) Hypokalemia Status: Acute Assessment & Plan: 05/14: Replace and repeat BMP in AM (6) DVT prophylaxis Assessment & Plan: PERFECTO Colón MD May 14, 2020 12:48
[2020-05-14] MEDS ORDERED: SIMV40TA25 PO (14:33)
[2020-05-14] MEDS ORDERED: QUET25TA34 PO (14:33)
[2020-05-14] MEDS ORDERED: CLN.1T PO (14:33)
[2020-05-14] MEDS ORDERED: ASPI-999 PO (14:33)
[2020-05-14] MEDS ORDERED: CYCL10TA9 PO (14:33)
[2020-05-14] MEDS ORDERED: GABA800T10 PO (14:33)
[2020-05-14] MEDS ORDERED: LISI40TA9 PO (14:33)
[2020-05-14] MEDS ORDERED: POTA-51 PO (14:33)
[2020-05-14] MEDS ORDERED: METH5TAB86 PO (14:33)
[2020-05-14] MEDS ORDERED: INSU100V39 SQ (14:33)
[2020-05-14] MEDS ORDERED: OMG1KC PO (14:33)
[2020-05-14] MEDS ORDERED: TRAZ150T72 PO (14:33)
[2020-05-14] MEDS ORDERED: MELO15TA39 PO (14:33)
[2020-05-14] MEDS ORDERED: METH-288 PO (14:33)
[2020-05-14] MEDS ORDERED: METO-333 PO (14:33)
[2020-05-14] MEDS ORDERED: CYAN500T44 PO (14:33)
[2020-05-14] MEDS ORDERED: SERT-414 PO (14:33)
[2020-05-14] MEDS ORDERED: FURO20TA4 PO (14:33)
[2020-05-14] MEDS ORDERED: CALC-250 PO (14:33)
[2020-05-14] MEDS: ENOXAPARIN 40 MG/0.4 ML (LOVENOX) SYR SC SCH (14:49)
[2020-05-14] MEDS: ALPRAZolam 0.25 MG (XANAX) TAB PO PRN (18:03)
[2020-05-14] MEDS: MELATONIN 3 MG TABLET PO PRN (20:14)
[2020-05-15] MEDS: NS IV 1000 ML 1,000 ML IV SCH ×3 (03:02→22:17)
[2020-05-15] MEDS: meTOprolol 5 MG/5 ML (LOPRESSOR) VIAL IV SCH ×4 (05:05→23:53)
[2020-05-15] MEDS: inSUlin ASPART (NovoLOG) 1 UNIT/0.01 ML (CHARGE PER UNIT) SC SCH ×4 (05:06→23:53)
[2020-05-15 06:12] LABS: BASOPHILS % (AUTO) 1 % (0-10); EOSINOPHILS # (AUTO) 0.3 10^3/uL (0.0-0.3); EOSINOPHILS % (AUTO) 4 % (0-10); HEMATOCRIT 33 % (40-54); HEMOGLOBIN 11.6 g/dL (13.3-17.7); LYMPHOCYTES # (AUTO) 1.8 10^3/uL (1.0-4.0); LYMPHOCYTES % (AUTO) 29 % (12-44); MEAN CORPUSCULAR HEMOGLOBIN 31 pg (25-34); MEAN CORPUSCULAR HGB CONC 35 g/dL (32-36); MEAN CORPUSCULAR VOLUME 89 fL (80-99); MEAN PLATELET VOLUME 9.6 fL (9.0-12.2); MONOCYTES # (AUTO) 0.6 10^3/uL (0.0-1.0); MONOCYTES % (AUTO) 10 % (0-12); NEUTROPHILS # (AUTO) 3.5 10^3/uL (1.8-7.8); NEUTROPHILS % (AUTO) 56 % (42-75); PLATELET COUNT 243 10^3/uL (130-400); WHITE BLOOD COUNT 6.2 10^3/uL (4.3-11.0)
[2020-05-15 06:31] LABS: ALANINE AMINOTRANSFERASE 13 U/L (0-55); ALBUMIN 2.1 GM/DL (3.2-4.5); ALKALINE PHOSPHATASE 51 U/L (40-136); BILIRUBIN,TOTAL 0.3 MG/DL (0.1-1.0); BUN/CREATININE RATIO 17; CALCIUM 7.5 MG/DL (8.5-10.1); CARBON DIOXIDE 19 MMOL/L (21-32); CHLORIDE 110 MMOL/L (98-107); CHOLESTEROL 304 MG/DL (< 200); GFR ESTIMATED > 60; GLUCOSE 164 MG/DL (70-105); HDL CHOLESTEROL 39 MG/DL (40-60); POTASSIUM 3.1 MMOL/L (3.6-5.0); SODIUM 138 MMOL/L (135-145); TRIGLYCERIDES 182 MG/DL (<150); VLDL CHOLESTEROL 36 MG/DL (5-40)
--- NOTE | 2020-05-15 06:36 | Progress Note - Surgery ---
GREY DASILVA MED STUDENT 05/15/20 0635: Subjective Date Seen by a Provider: May 15, 2020 Time Seen by a Provider: 06:10 Subjective/Events-last exam Patient reports sleeping ok. Denies abdominal pain, SOB, chest pain, nausea, vomiting, and diarrhea this am. Reports tolerating clear liquid diet well and asking if he can advance his diet. Reports having a BM yesterday without blood. Voiding without difficulty. States he's doing much better. Review of Systems General: No Chills, No Fatigue HEENT: No Head Aches, No Visual Changes Pulmonary: No Dyspnea, No Cough Cardiovascular: No: Chest Pain, Palpitations Gastrointestinal: No: Nausea, Vomiting, Abdominal Pain, Diarrhea Genitourinary: No Dysuria, No Frequency Musculoskeletal: No: neck pain, back pain Neurological: No: Weakness, Numbness, Incoordination, Confusion Objective Exam Vital Signs Date Time Temp Pulse Resp B/P (MAP) Pulse Ox O2 Delivery O2 Flow Rate FiO2 05/15/20 04:59 36.9 84 20 188/103 (131) 96 Room Air 05/15/20 01:00 82 05/14/20 23:38 36.9 81 20 148/80 (102) 97 Room Air 05/14/20 23:29 97 Room Air 05/14/20 20:15 Room Air 05/14/20 20:00 36.6 92 20 184/104 (130) 97 Room Air 05/14/20 19:00 88 05/14/20 16:00 36.8 97 19 186/96 (126) 97 Room Air 05/14/20 12:53 102 05/14/20 11:39 37.0 95 20 167/88 (114) 96 Room Air 05/14/20 08:00 37.1 99 18 154/85 (108) 97 Room Air 05/14/20 06:40 94 I & O 05/15/20 07:00 Intake Total 5250 ml Balance 5250 ml Capillary Refill : Less Than 3 Seconds General Appearance: No Apparent Distress, WD/WN HEENT: PERRL/EOMI, Pharynx Normal Neck: Normal Inspection, Non Tender Respiratory: Chest Non Tender, Lungs Clear, Normal Breath Sounds, No Accessory Muscle Use, No Respiratory Distress Cardiovascular: Regular Rate, Rhythm, No Murmur, Normal Peripheral Pulses Peripheral Pulses: 2+ Dorsalis Pedis (R), 2+ Left Dors-Pedis (L), 2+ Radial Pulses (R), 2+ Radial Pulses (L) Gastrointestinal: normal bowel sounds, non tender, soft; No guarding, No rebound, No tenderness Extremity: Normal Capillary Refill, Non Tender, No Calf Tenderness, No Pedal Edema Neurologic/Psychiatric: Alert, Oriented x3, No Motor/Sensory Deficits, Other (Flat affect ) Skin: Normal Color, Warm/Dry Lymphatic: No Adenopathy Results Lab Laboratory Tests 05/14/20 11:06: Glucometer 150H 05/14/20 17:52: Glucometer 377H 05/14/20 23:40: Glucometer 132H 05/15/20 05:06: Glucometer 149H 05/15/20 05:43: White Blood Count 6.2, Red Blood Count 3.73L, Hemoglobin 11.6L, Hematocrit 33L, Mean Corpuscular Volume 89, Mean Corpuscular Hemoglobin 31, Mean Corpuscular Hemoglobin Concent 35, Red Cell Distribution Width 12.9, Platelet Count 243, Mean Platelet Volume 9.6, Immature Granulocyte % (Auto) 0, Neutrophils (%) (Auto) 56, Lymphocytes (%) (Auto) 29, Monocytes (%) (Auto) 10, Eosinophils (%) (Auto) 4, Basophils (%) (Auto) 1, Neutrophils # (Auto) 3.5, Lymphocytes # (Auto) 1.8, Monocytes # (Auto) 0.6, Eosinophils # (Auto) 0.3, Basophils # (Auto) 0.0, Immature Granulocyte # (Auto) 0.0 Microbiology 05/12/20 MRSA Screen - Final, Complete MRSA not isolated Assessment/Plan Assessment/Plan Assessment/Plan Acute Pancreatitis Hypokalemia- K 3.1 this am Elevated cholesterol- 304 this am Elevated Lipase-Resolved Uncontrolled DM w/insulin management Hypertension Nephrolithiasis w/o obstruction per CT scan Seizure hx PLAN Continue IVF at 100ml/hr until po intake is increased Advance diet as tolerated Replace potassium today, continue to monitor Pain and Nausea medications as needed for control Antihypertensives PRN and scheduled for HTN Continue conservative management ADDIS RUSSELL DO 05/15/202002: Subjective Subjective/Events-last exam Patient states he is feeling better. He denies any abdominal pain. He is tolerating clear liquids. He is not having nausea or vomiting. He denies any fever sweats chills shortness of breath or chest pain. Objective Exam General Appearance: No Apparent Distress, WD/WN HEENT: PERRL/EOMI Neck: Normal Inspection, Non Tender Respiratory: Chest Non Tender, No Accessory Muscle Use, No Respiratory Distress Cardiovascular: Regular Rate, Rhythm, No JVD Gastrointestinal: non tender, soft Extremity: Non Tender, No Calf Tenderness Neurologic/Psychiatric: Alert, Oriented x3, No Motor/Sensory Deficits, Other (Flat affect ) Skin: Normal Color, Warm/Dry Lymphatic: No Adenopathy Assessment/Plan Assessment/Plan Assessment/Plan Acute Pancreatitis Hypokalemia- K 3.1 this am Elevated cholesterol- 304 this am Elevated Lipase-Resolved Uncontrolled DM w/insulin management Hypertension Nephrolithiasis w/o obstruction per CT scan Seizure hx PLAN Advance diet as tolerated Replace potassium today, continue to monitor Pain and Nausea medications as needed for control Antihypertensives PRN and scheduled for HTN No surgical intervention Gallbladder no stones or abnormality. Supervisory-Addendum Brief Verification & Attestation Participated in pt care: history, MDM, physical Personally performed: exam, history, MDM, supervision of care Care discussed with: Medical Student Procedures: n/a Results interpretation: Verified all documentation Verification and Attestation of Medical Student E/M Service A medical student performed and documented this service in my presence. I reviewed and verified all information documented by the medical student and made modifications to such information, when appropriate. I personally performed the physical exam and medical decision making. Addis Russell, May 15, 2020,20:03 GREY DASILVA MED STUDENT May 15, 2020 06:35 ADDIS RUSSELL DO May 15, 2020 20:03
[2020-05-15] MEDS: SENNA W/DOCUSATE (SENOKOT S) TABLET PO SCH ×2 (08:25→20:10)
[2020-05-15] MEDS: amLODIPine 5 MG (NORVASC) TAB PO SCH (08:25)
[2020-05-15] MEDS: POTASSIUM CL 10MEQ/50ML IVPB 50 ML IV SCH ×4 (08:25→12:10)
[2020-05-15] MEDS: cloNIDine 0.1 MG (CATAPRES) TAB PO SCH ×2 (08:25→20:21)
[2020-05-15] MEDS: ENOXAPARIN 40 MG/0.4 ML (LOVENOX) SYR SC SCH (11:05)
--- NOTE | 2020-05-15 12:16 | Cardiology Progress Note ---
Subjective Date Seen by Provider: May 15, 2020 Time Seen by Provider: 08:00 Subjective/Events-last exam patient is laying down in bed, feeling better. No new complaint Review of Systems General: No Chills, No Night Sweats, No Fatigue, No Malaise, No Appetite, No Other HEENT: No Head Aches, No Visual Changes, No Eye Pain, No Ear Pain, No Dysphasia, No Sinus Congestion, No Post Nasal Drip, No Sore Throat, No Other Pulmonary: No Dyspnea, No Cough, No Pleuritic Chest Pain, No Other Cardiovascular: No: Chest Pain, Palpitations, Orthopnea, Paroxysmal Noc. Dyspnea, Edema, Lt Headedness, Other Objective-Cardiology Exam Last Set of Vital Signs Vital Signs 05/13/20 05/15/20 13:00 08:00 Temp 36.7 Pulse 91 Resp 20 B/P (MAP) 184/103 (130) Pulse Ox 98 O2 Delivery Room Air O2 Flow Rate 2.00 Capillary Refill : Less Than 3 Seconds I&O Intake and Output 05/15/20 00:00 Intake Total 9250 ml Balance 9250 ml Intake Oral 1150 ml IV Total 8100 ml # Voids 7 # Bowel Movements 1 General: Alert, Oriented X3 HEENT: Atraumatic, PERRLA Neck: Supple, No JVD, No Thyromegaly Lungs: Clear to Auscultation, Normal Air Movement Heart: Regular Rate, Normal S1, Normal S2, No Murmurs Abdomen: Soft, No Tenderness, No Masses Extremities: No Clubbing, No Cyanosis, No Edema, No Tenderness/Swelling Skin: No Rashes, No Breakdown Neuro: Normal Speech, Strength at 5/5 X4 Ext, Cranial Nerves 3-12 NL Psych/Mental Status: Mental Status NL, Mood NL Results Lab Laboratory Tests 05/15/20 05:43 A/P-Cardiology Admission Diagnosis Acute pancreatitis Sinus tachycardia Hypertension Seizure disorder Assessment/Plan Acute pancreatitis, abdominal pain, reporting mild improvement. Managed by primary care team. Continue to monitor Hypokalemia, replace and monitor Malignant hypertension, labile blood pressure, I will continue adjusting his medication and try to achieve adequate blood pressure control. Being in severe pain will continue to increase his blood pressure Sinus tachycardia, probably secondary to pain and pancreatitis. Started on beta blockers. Planning to evaluate 2-D echo. Continue to monitor Nephrolithiasis, continue to monitor History of seizure disorder, managed by primary care team CHARMAINE BENITEZ MD May 15, 2020 12:16
[2020-05-15] MEDS: ALPRAZolam 0.25 MG (XANAX) TAB PO PRN ×2 (15:47→20:21)
[2020-05-15] MEDS: cloNIDine 0.1 MG (CATAPRES) TAB PO PRN (15:52)
--- NOTE | 2020-05-15 16:56 | Progress Note ---
Subjective Subjective/Events-last exam Denies any pain or N/V with [facility]. No BM since admission. tolerating ambulation Review of Systems Pulmonary: No Dyspnea, No Cough Cardiovascular: No: Chest Pain, Palpitations Gastrointestinal: Constipation; No: Nausea, Vomiting Objective Exam Last Set of Vital Signs Vital Signs Date Time Temp Pulse Resp B/P (MAP) Pulse Ox O2 Delivery O2 Flow Rate FiO2 05/15/20 16:05 36.6 86 18 193/108 (136) 98 Room Air 05/13/20 13:00 2.00 Capillary Refill : Less Than 3 Seconds I&O Intake and Output 05/15/20 00:00 Intake Total 9250 ml Balance 9250 ml Intake Oral 1150 ml IV Total 8100 ml # Voids 7 # Bowel Movements 1 General: Alert, Oriented X3, Cooperative, No Acute Distress Lungs: Clear to Auscultation, Normal Air Movement Heart: Regular Rate, No Murmurs Abdomen: Normal Bowel Sounds, Soft, No Tenderness, No Masses Extremities: No Edema, No Tenderness/Swelling Results/Procedures Lab Laboratory Tests 05/14/20 17:52: Glucometer 377H 05/14/20 23:40: Glucometer 132H 05/15/20 05:06: Glucometer 149H 05/15/20 05:43: White Blood Count 6.2, Red Blood Count 3.73L, Hemoglobin 11.6L, Hematocrit 33L, Mean Corpuscular Volume 89, Mean Corpuscular Hemoglobin 31, Mean Corpuscular Hem oglobin Concent 35, Red Cell Distribution Width 12.9, Platelet Count 243, Mean Platelet Volume 9.6, Immature Granulocyte % (Auto) 0, Neutrophils (%) (Auto) 56, Lymphocytes (%) (Auto) 29, Monocytes (%) (Auto) 10, Eosinophils (%) (Auto) 4, Basophils (%) (Auto) 1, Neutrophils # (Auto) 3.5, Lymphocytes # (Auto) 1.8, Monocytes # (Auto) 0.6, Eosinophils # (Auto) 0.3, Basophils # (Auto) 0.0, Immature Granulocyte # (Auto) 0.0, Sodium Level 138, Potassium Level 3.1L, Chloride Level 110H, Carbon Dioxide Level 19L, Anion Gap 9, Blood Urea Nitrogen 17, Creatinine 1.00, Estimat Glomerular Filtration Rate > 60, BUN/Creatinine Ratio 17, Glucose Level 164H, Calcium Level 7.5L, Corrected Calcium 9.0, Total Bilirubin 0.3, Aspartate Amino Transf (AST/SGOT) 15, Alanine Aminotransferase (ALT/SGPT) 13, Alkaline Phosphatase 51, Total Protein 5.0L, Albumin 2.1L, Triglycerides Level 182H, Cholesterol Level 304H, LDL Cholesterol Direct 246H, VLDL Cholesterol 36, HDL Cholesterol 39L 05/15/20 11:30: Glucometer 243H Microbiology 05/12/20 MRSA Screen - Final, Complete MRSA not isolated Assessment/Plan Assessment/Plan (1) Acute pancreatitis Status: Acute Assessment & Plan: 05/14: Denies pain this AM, will advance to [facility], Amylase/Lipase normal, US gallbladder normal, Will get lipid panel today 05/15: Doing well on [facility] will advance diet Qualifiers: Qualified Codes: K85.90 - Acute pancreatitis without necrosis or infection, unspecified (2) Diabetes mellitus, insulin dependent (IDDM), uncontrolled Status: Acute Assessment & Plan: 05/14: SSI/Accuchecks, A1c pending (3) Hyperlipidemia Status: Chronic Assessment & Plan: 05/15: Continue Statin, focus on diet and exercise to decrease CV risk Qualifiers: Qualified Codes: E78.2 - Mixed hyperlipidemia (4) Essential hypertension Status: Acute Assessment & Plan: 05/14: Continue meds, Decrease IVFs (5) Acute kidney failure Status: Resolved (6) Hypokalemia Status: Acute Assessment & Plan: 05/14: Replace and repeat BMP in AM (7) DVT prophylaxis Assessment & Plan: PERFECTO Colón MD May 15, 2020 16:56
[2020-05-15] MEDS: MELATONIN 3 MG TABLET PO PRN (20:21)
--- NOTE | 2020-05-16 06:19 | Progress Note - Surgery ---
GREY DASILVA MED STUDENT 05/16/20 0619: Subjective Date Seen by a Provider: May 16, 2020 Time Seen by a Provider: 05:55 Subjective/Events-last exam Patient states he's feeling a little better this morning. Denies any nausea or vomiting over night. States he's having BM's and voiding without difficulty. Reports tolerating a soft diet well yesterday. He denies abdominal pain this morning. Denies fevers, chills, chest pain, SOB, and headaches. Reports that he is feeling up to going home today. He's still having elevated blood pressures. Review of Systems General: No Chills, No Night Sweats HEENT: No Head Aches, No Visual Changes Pulmonary: No Dyspnea, No Cough Cardiovascular: No: Chest Pain, Palpitations Gastrointestinal: No: Nausea, Vomiting, Abdominal Pain Genitourinary: No Dysuria, No Frequency, No Hematuria Musculoskeletal: No: neck pain, back pain Neurological: No: Weakness, Numbness Objective Exam Vital Signs Date Time Temp Pulse Resp B/P (MAP) Pulse Ox O2 Delivery O2 Flow Rate FiO2 05/16/20 03:30 36.8 80 20 174/92 (119) 97 Room Air 05/16/20 01:00 73 05/15/20 23:57 36.6 84 20 155/90 (111) 95 Room Air 05/15/20 21:36 97 Room Air 05/15/20 20:20 Room Air 05/15/20 19:55 36.5 82 20 97 Room Air 05/15/20 19:00 82 05/15/20 16:05 36.6 86 18 193/108 (136) 98 Room Air 05/15/20 12:28 84 05/15/20 12:00 36.3 81 20 188/113 (138) 98 Room Air 05/15/20 08:00 98 Room Air 05/15/20 08:00 36.7 91 20 184/103 (130) 98 Room Air 05/15/20 06:48 83 I & O 05/16/20 07:00 Intake Total 6883 ml Balance 6883 ml Capillary Refill : Less Than 3 Seconds General Appearance: No Apparent Distress, WD/WN HEENT: PERRL/EOMI, Pharynx Normal Neck: Normal Inspection, Non Tender Respiratory: Chest Non Tender, Lungs Clear, Normal Breath Sounds, No Accessory Muscle Use, No Respiratory Distress Cardiovascular: Regular Rate, Rhythm, No Edema, No Murmur, Normal Peripheral Pulses Peripheral Pulses: 2+ Dorsalis Pedis (R), 2+ Left Dors-Pedis (L), 2+ Radial Pulses (R), 2+ Radial Pulses (L) Gastrointestinal: normal bowel sounds, non tender, soft; No distended, No guarding, No rebound, No tenderness Extremity: Normal Capillary Refill, Non Tender, No Calf Tenderness, No Pedal Edema Neurologic/Psychiatric: Alert, Oriented x3, No Motor/Sensory Deficits, Other (Flat affect ) Skin: Normal Color, Warm/Dry Lymphatic: No Adenopathy Results Lab Laboratory Tests 05/15/20 11:30: Glucometer 243H 05/15/20 17:17: Glucometer 243H 05/15/20 23:52: Glucometer 178H 05/16/20 05:12: Microbiology 05/12/20 MRSA Screen - Final, Complete MRSA not isolated Assessment/Plan Assessment/Plan Assessment/Plan Acute Pancreatitis Elevated Lipase-Resolved Uncontrolled DM w/insulin management Hypertension Nephrolithiasis w/o obstruction per CT scan Seizure hx PLAN Advance diet as tolerated Pain and Nausea medications as needed for control Antihypertensives PRN and scheduled for HTN No surgical intervention Patient can likely be discharged to home today. Patient needs to follow up with PCP for BP management ADDIS RUSSELL DO 05/16/20 0851: Subjective Subjective/Events-last exam Patient tolerating diet. Not having pain. No nausea or vomiting. Denies fever sweats chills shortness of breath or chest pain. Objective Exam General Appearance: No Apparent Distress, WD/WN HEENT: PERRL/EOMI, Normal ENT Inspection Neck: Full Range of Motion, Normal Inspection, Non Tender Respiratory: Chest Non Tender, No Accessory Muscle Use, No Respiratory Distress Cardiovascular: Regular Rate, Rhythm, No JVD Gastrointestinal: normal bowel sounds, non tender, soft; No distended, No guarding, No rebound, No tenderness Extremity: Non Tender, No Calf Tenderness Neurologic/Psychiatric: Alert, Oriented x3, No Motor/Sensory Deficits Skin: Normal Color, Warm/Dry Lymphatic: No Adenopathy Assessment/Plan Assessment/Plan Assessment/Plan Acute Pancreatitis Elevated Lipase-Resolved Uncontrolled DM w/insulin management Hypertension Nephrolithiasis w/o obstruction per CT scan Seizure hx PLAN Diet as tolerated Pain and Nausea medications as needed for control Antihypertensives PRN and scheduled for HTN No surgical intervention Patient can likely be discharged to home today. Replace potassium Supervisory-Addendum Brief Verification & Attestation Participated in pt care: history, MDM, physical Personally performed: exam, history, MDM, supervision of care Care discussed with: Medical Student Procedures: n/a Results interpretation: Verified all documentation Verification and Attestation of Medical Student E/M Service A medical student performed and documented this service in my presence. I reviewed and verified all information documented by the medical student and made modifications to such information, when appropriate. I personally performed the physical exam and medical decision making. Addis Russell, May 16, 2020,08:51 GREY DASILVA MED STUDENT May 16, 2020 06:19 ADDIS RUSSELL DO May 16, 2020 08:51
[2020-05-16 06:21] LABS: BUN/CREATININE RATIO 12; CALCIUM 7.5 MG/DL (8.5-10.1); CARBON DIOXIDE 17 MMOL/L (21-32); CHLORIDE 110 MMOL/L (98-107); CREATININE SERUM 1.01 MG/DL (0.60-1.30); GFR ESTIMATED > 60; MAGNESIUM 1.6 MG/DL (1.6-2.4); POTASSIUM 3.2 MMOL/L (3.6-5.0); SODIUM 138 MMOL/L (135-145)
[2020-05-16] MEDS: meTOprolol 5 MG/5 ML (LOPRESSOR) VIAL IV SCH (06:31)
[2020-05-16 06:34] LABS: GLUCOSE 220 MG/DL (70-105)
[2020-05-16] MEDS: inSUlin ASPART (NovoLOG) 1 UNIT/0.01 ML (CHARGE PER UNIT) SC SCH ×2 (06:40→11:12)
[2020-05-16] MEDS: ALPRAZolam 0.25 MG (XANAX) TAB PO PRN (08:36)
[2020-05-16] MEDS: NS IV 1000 ML 1,000 ML IV SCH (08:37)
[2020-05-16] MEDS: SENNA W/DOCUSATE (SENOKOT S) TABLET PO SCH (08:37)
[2020-05-16] MEDS: amLODIPine 5 MG (NORVASC) TAB PO SCH (08:37)
[2020-05-16] MEDS: cloNIDine 0.1 MG (CATAPRES) TAB PO SCH (08:37)
[2020-05-16] MEDS ORDERED: KCL 20 MEQ TAB (K-DUR) PO ONE ×2 (09:00→09:30)
[2020-05-16] MEDS ORDERED: lisINopril 10 MG (PRINIVIL) TABLET PO SCH (09:00)
[2020-05-16] MEDS ORDERED: meTOprolol SUCCINATE 100 MG (TOPROL XL) TAB PO ONE (09:30)
--- NOTE | 2020-05-16 09:30 | Progress Note - Cardiology ---
Cardiology SOAP Progress Note Subjective: No cp or palp or syncope or shortness of breath No abd pain or n/v/d No dysuria No weakness Objective: I&O/Vital Signs 05/15/20 05/15/20 05/16/20 05/16/20 21:36 23:57 01:00 03:30 Temp 36.6 36.8 Pulse 84 73 80 Resp 20 20 B/P (MAP) 155/90 (111) 174/92 (119) Pulse Ox 97 95 97 O2 Delivery Room Air Room Air Room Air 05/16/20 05/16/20 07:03 08:00 Temp 37.0 Pulse 81 87 Resp 20 B/P (MAP) 166/91 (116) Pulse Ox 96 O2 Delivery Room Air 05/16/20 00:00 Intake Total 6508 ml Balance 6508 ml Weight (Pounds): 185 Weight (Ounces): 2.0 Weight (Calculated Kilograms): 83.219116 Constitutional: AAO x 3, well-developed, well-nourished Respiratory: No accessory muscle use; other (good bilateral air entry) Cardiovascular: regular rate-rhythm, S1 and S2, systolic murmur (soft RHETT at card base) Gastrointestional: No tender; soft; No guarding, No rebound Extremities: No clubbing, No cyanosis, No significant edema Neurologic/Psychiatric: oriented x 3, other (moves all limbs equally) Skin: normal color, warm/dry Results/Procedures: Labs Laboratory Tests 05/15/20 11:30: Glucometer 243H 05/15/20 17:17: Glucometer 243H 05/15/20 23:52: Glucometer 178H 05/16/20 05:12: Sodium Level 138, Potassium Level 3.2L, Chloride Level 110H, Carbon Dioxide Level 17L, Anion Gap 11, Blood Urea Nitrogen 12, Creatinine 1.01, Estimat Glomerular Filtration Rate > 60, BUN/Creatinine Ratio 12, Glucose Level 220H, Calcium Level 7.5L, Magnesium Level 1.6 Microbiology 05/12/20 MRSA Screen - Final, Complete MRSA not isolated Laboratory Tests 05/15/20 05:43 05/16/20 05:12 A/P: Assessment: Acute pancreatitis, clinically improved, managed by primary care team Hypokalemia, replace and monitor Severe hypertension Sinus tachycardia, probably secondary to pain and pancreatitis, improved Nephrolithiasis, managed by primary care team History of seizure disorder, managed by primary care team Plan: * Hypertension still not well controlled. Add oral bb, d/c prn iv bb * K low, replenish * Outpt f/u advised LINDSAY MARTELL MD FACP FAC CCDS May 16, 2020 09:30
[2020-05-16] MEDS: ENOXAPARIN 40 MG/0.4 ML (LOVENOX) SYR SC SCH (11:25)
--- NOTE | 2020-05-16 11:44 | Discharge Summary ---
Diagnosis/Chief Complaint Date of Admission May 12, 2020 at 08:24 Date of Discharge 05/13/20 Discharge Diagnosis Problems/Diagnosis: (1) Acute pancreatitis Assessment & Plan: 05/14: Denies pain this AM, will advance to CLD, Amylase/Lipase normal, US gallbladder normal, Will get lipid panel today 05/15: Doing well on CLD will advance diet Qualifiers: Qualified Codes: K85.90 - Acute pancreatitis without necrosis or infection, unspecified Status: Acute (2) Diabetes mellitus, insulin dependent (IDDM), uncontrolled Assessment & Plan: 05/14: SSI/Accuchecks, A1c pending Status: Acute (3) Hyperlipidemia Assessment & Plan: 05/15: Continue Statin, focus on diet and exercise to decrease CV risk Qualifiers: Qualified Codes: E78.2 - Mixed hyperlipidemia Status: Chronic (4) Essential hypertension Assessment & Plan: 05/14: Continue meds, Decrease IVFs Status: Acute (5) Acute kidney failure Status: Resolved Resolution Date/Time: 05/13/20 @ 12:48 (6) Hypokalemia Assessment & Plan: 05/14: Replace and repeat BMP in AM Status: Acute (7) DVT prophylaxis Assessment & Plan: Lovenox Discharge Summary-Simple/Stand Consultations Discharge Physical Examination Allergies: Coded Allergies: NKANo Known Allergies (Verified Allergy, Unknown, 05/19/05) clindamycin (Verified Allergy, Unknown, 05/12/20) Vitals & I&Os Vital Sign - Last 12Hours Date Time Temp Pulse Resp B/P (MAP) Pulse Ox O2 Delivery O2 Flow Rate FiO2 05/16/20 08:00 96 Room Air 05/16/20 08:00 37.0 87 20 166/91 (116) 05/13/20 13:00 2.00 Intake and Output 05/15/20 23:59 Intake Total 6508 ml Balance 6508 ml Hospital Course See final discharge diagnosis. Discharge Instructions to patient/family Please see electronic discharge instructions given to patient. Discharge Medications Reviewed and agree with Discharge Medication list on patient's Discharge Instruction sheet PERFECTO JOEL MD May 16, 2020 11:44
[2020-05-16] MEDS ORDERED: INSU100V5 SQ (11:46)
[2020-05-16] MEDS ORDERED: MTP100TCR PO (11:46)
[2020-05-16] MEDS ORDERED: AMLO-250 PO (11:46)
--- NOTE | 2020-05-16 11:48 | Discharge Summary ---
Discharge [facility] Reconcile Patient Problems Problems Reviewed?: Yes Discharge Medications New, Converted or Re-Newed RX: Transmitted to Pharmacy New Medications: Insulin Determir (Levemir) 1,000 Units/10 Ml Soln 10 UNITS SQ HS, #1 EA Amlodipine Besylate (Amlodipine Besylate) 5 Mg Tablet 5 MG PO DAILY, #30 TAB Metoprolol Succinate (Metoprolol Succinate) 100 Mg Tab.er.24h 100 MG PO DAILY, #30 TAB Continued Medications: Aspirin (Aspirin) 81 Mg Tab.chew 81 MG PO DAILY, TAB Cholecalciferol (Vitamin D3) (Vitamin D3) 125 Mcg Tablet 250 MCG PO DAILY, TAB TAKES 2 (125MCG) TABLETS Clonidine HCl (Clonidine HCl) 0.1 Mg Tablet 0.1 MG PO QID, TAB Cyanocobalamin (Vitamin B-12) (B-12) 500 Mcg Tablet 1000 MCG PO BID, TAB TAKES 2 (500MG) TABLETS Cyclobenzaprine HCl (Cyclobenzaprine HCl) 10 Mg Tablet 10 MG PO DAILY PRN for MUSCLE SPASMS, TAB Furosemide (Furosemide) 20 Mg Tablet 20 MG PO BID, TAB Gabapentin (Gabapentin) 800 Mg Tablet 800 MG PO TID, TAB Insulin Lispro (Insulin Lispro) 100 Unit/1 Ml Vial SQ QIDACHS, VIAL USE SLIDING SCALE Lisinopril (Lisinopril) 40 Mg Tablet 40 MG PO DAILY, TAB Methylphenidate HCl (Methylphenidate HCl) 5 Mg Tablet 5 MG PO BID, TAB Methylphenidate HCl (Methylphenidate HCl) 10 Mg Tablet 10 MG PO BID, TAB [place] 3 Polyunsat Fatty Acids (Fish Oil 1,000 mg Capsule) 1,000 Mg Cap 1000 MG PO BID, CAP Potassium Chloride (Potassium Chloride) 20 Meq Tablet.er 20 MEQ PO BID, TAB Quetiapine Fumarate (Quetiapine Fumarate) 25 Mg Tablet 50 MG PO HS, TAB TAKES 2 (25MG) TABLETS Sertraline HCl (Sertraline HCl) 100 Mg Tablet 100 MG PO DAILY, TAB Simvastatin (Simvastatin) 40 Mg Tablet 40 MG PO HS, TAB Trazodone HCl (Trazodone HCl) 150 Mg Tablet 150 MG PO HS, TAB Discontinued Medications: Meloxicam (Meloxicam) 15 Mg Tablet 15 MG PO DAILY, TAB Metoprolol Tartrate (Metoprolol Tartrate) 25 Mg Tablet 25 MG PO DAILY, TAB Patient Instructions Goal/Follow Up Appt: You have a f.u appt with Carmelita Avila on 05/22 @ 1120 Patient Instructions: - Added long acting insulin to get better control of your DM, A1c 11.0 during this admission, this likely played a role in your pancreatitis - Focus on ADA diet Activity & Diet Discharge Diet: ADA Diet Activity as Tolerated: Yes Copy Copies To 1: Carmelita YOUNGER HOLLY R MD May 16, 2020 11:48
[2020-05-17] MEDS ORDERED: meTOprolol SUCCINATE 100 MG (TOPROL XL) TAB PO SCH (09:00)
== END 2020-05-16 16:55 | disposition home or self-care (01) | DRG 439 ==
LOC: EDUNIT# 03:35 → ER FS 03:38 → ICU 08:24 → 4TH 05-13 14:12
PROVIDERS: ADMIT Internal Medicine; ATTEND Family Medicine
DX: K85.90 Acute pancreatitis without necrosis or infection, unspecified (principal); N17.9 Acute kidney failure, unspecified; K86.1 Other chronic pancreatitis; E11.65 Type 2 diabetes mellitus with hyperglycemia; I10 Essential (primary) hypertension; G40.909 Epilepsy, unspecified, not intractable, without status epilepticus; N20.0 Calculus of kidney; Z79.82 Long term (current) use of aspirin; Z79.4 Long term (current) use of insulin; Z90.49 Acquired absence of other specified parts of digestive tract; E11.40 Type 2 diabetes mellitus with diabetic neuropathy, unspecified; M19.90 Unspecified osteoarthritis, unspecified site; F41.9 Anxiety disorder, unspecified; F32.9 Major depressive disorder, single episode, unspecified; F17.210 Nicotine dependence, cigarettes, uncomplicated; Z86.73 Personal history of transient ischemic attack (TIA), and cerebral infarction without residual deficits; E87.6 Hypokalemia; E78.5 Hyperlipidemia, unspecified; R00.0 Tachycardia, unspecified
CPT/HCPCS: 36415; 71045; 74176; 76705; 80048; 80053; 80061; 80076; 80306; 81000; 82150; 82962; 83036; 83690; 83735; 84100; 85025; 85610; 85730; 87081; 94760

== ENCOUNTER 2020-07-15 12:47 | Emergency (ER) | payer OTHER ==
[~2020-07-15 12:47] MED LIST changes: +AMLO-250 PO; +ASPI-999 PO; +CALC-250 PO; +CLN.1T PO; +CYAN500T44 PO; +CYCL10TA9 PO; +FURO20TA4 PO; +INSU100V39 SQ; +LISI40TA9 PO; +METH-288 PO; +METH5TAB86 PO; +METO-333 PO; +MTP100TCR PO; +OMG1KC PO; +POTA-51 PO; +QUET25TA34 PO; +SERT-414 PO; +SIMV40TA25 PO; +TRAZ150T72 PO
--- NOTE | 2020-07-15 13:10 | ED General ---
General Chief Complaint: - Urinary Stated Complaint: LOWER BACK PAIN | BLOOD IN URINE History of Present Illness Date Seen by Provider: July 15, 2020 Time Seen by Provider: 13:08 Initial Comments Patient presenting to the emergency department for evaluation of dysuria hematuria and back pain. He says the back pain started 2 days ago and he describes it as initially on the right side and then whenever he would urinate he would have intense suprapubic cramping and then yesterday started being flank pain on the left side and this morning it has been primarily pain in the left side. Patient says he has had some nausea but no vomiting. He says he was at the urgent care and he noted a small string of blood grossly and he was told to come to the emergency department. He says he has had kidney stones before in the past and this feels similar. He denies fevers chills vomiting or other systemic symptoms. He is in no obvious distress. Allergies and Home Medications Allergies Coded Allergies: NKANo Known Allergies (Verified Allergy, Unknown, 05/19/05) clindamycin (Verified Allergy, Unknown, 05/12/20) Home Medications Amlodipine Besylate 5 Mg Tablet, 5 MG PO DAILY Prescribed by: PERFECTO JOEL on 05/16/20 1146 Aspirin 81 Mg Tab.chew, 81 MG PO DAILY, (Reported) Cholecalciferol (Vitamin D3) 125 Mcg Tablet, 250 MCG PO DAILY, (Reported) TAKES 2 (125MCG) TABLETS Clonidine HCl 0.1 Mg Tablet, 0.1 MG PO QID, (Reported) Cyanocobalamin (Vitamin B-12) 500 Mcg Tablet, 1,000 MCG PO BID, (Reported) TAKES 2 (500MG) TABLETS Cyclobenzaprine HCl 10 Mg Tablet, 10 MG PO DAILY PRN for MUSCLE SPASMS, (Reported) Furosemide 20 Mg Tablet, 20 MG PO BID, (Reported) Gabapentin 800 Mg Tablet, 800 MG PO TID, (Reported) Insulin Determir 1,000 Units/10 Ml Soln, 10 UNITS SQ HS Prescribed by: PERFECTO JOEL on 05/16/20 1146 Insulin Lispro 100 Unit/1 Ml Vial, SQ QIDACHS, (Reported) USE SLIDING SCALE Lisinopril 40 Mg Tablet, 40 MG PO DAILY, (Reported) Methylphenidate HCl 5 Mg Tablet, 5 MG PO BID, (Reported) Methylphenidate HCl 10 Mg Tablet, 10 MG PO BID, (Reported) Metoprolol Succinate 100 Mg Tab.er.24h, 100 MG PO DAILY Prescribed by: PERFECTO JOEL on 05/16/20 1146 [place] 3 Polyunsat Fatty Acids 1,000 Mg Cap, 1,000 MG PO BID, (Reported) Potassium Chloride 20 Meq Tablet.er, 20 MEQ PO BID, (Reported) Quetiapine Fumarate 25 Mg Tablet, 50 MG PO HS, (Reported) TAKES 2 (25MG) TABLETS Sertraline HCl 100 Mg Tablet, 100 MG PO DAILY, (Reported) Simvastatin 40 Mg Tablet, 40 MG PO HS, (Reported) Trazodone HCl 150 Mg Tablet, 150 MG PO HS, (Reported) Patient Home Medication List Home Medication List Reviewed: Yes Review of Systems Review of Systems Constitutional: no symptoms reported EENTM: no symptoms reported Respiratory: no symptoms reported Cardiovascular: no symptoms reported Gastrointestinal: nausea Genitourinary: hematuria Musculoskeletal: back pain Psychiatric/Neurological: No Symptoms Reported All Other Systems Reviewed Negative Unless Noted: Yes Past Jhpmxlc-Wqphvo-Besazo Hx Patient Social History Alcohol Use: Denies Use Number of Drinks Today: AA Alcohol Beverage of Choice: Beer Smoking Status: Current Everyday Smoker Type Used: Cigarettes 2nd Hand Smoke Exposure: Yes Recent Hopitalizations: Yes (ku for cva 1-20) Immunizations Up To Date Tetanus Booster (TDap): Unknown PED Vaccines UTD: Yes Date of Pneumonia Vaccine: Mar 04, 2019 Date of Influenza Vaccine: Mar 04, 2019 Seasonal Allergies Seasonal Allergies: No Past Medical History Surgeries: Yes (BILAT ING HERNIA, ESS, ) Abdominal, Adenoidectomy, Appendectomy, Tonsillectomy Respiratory: No Chronic Bronchitis Currently Using CPAP: No Currently Using BIPAP: No Cardiac: Yes (BP MEDICATIONS IN THE PAST-NOT CURRENTLY) Hypertension Neurological: Yes Neuropathy, Seizure Disorder, Stroke Genitourinary: Yes Kidney Stones Gastrointestinal: No (HX OF PANCREATISIS) Pancreatitis Musculoskeletal: Yes Arthritis Endocrine: Yes (HAS AN INSULIN PUMP) Diabetes, Insulin dep HEENT: Yes (LEFT EYE SCLERITIS, RIGHT LOSS PERIPHERALVISION AND DEPTH PERCEPTION) Loss of Vision: Right Hearing Impairment: Denies Cancer: No Psychosocial: Yes Sleep Difficulties, Anxiety, Depression Integumentary: No Blood Disorders: No Family Medical History Colon cancer MATERNAL GRANDFATHER Completed stroke 19 FATHER Deafness or hearing loss 19 FATHER Diabetes mellitus 19 MOTHER (MOM, BROTHER, AUNTS) Gastroenteritis 19 MOTHER Hypercholesterolemia 19 FATHER Hypertension 19 FATHER 19 MOTHER Neoplasm PATERNAL GRANDFATHER (STOMACH) MATERNAL GRANDFATHER (COLON) Psychosocial problem 19 MOTHER Seizure disorder 19 FATHER No Pertinent Family Hx Physical Exam Vital Signs Vital Signs - First Documented 07/15/20 13:03 Temp 36.8 Pulse 88 Resp 14 B/P (MAP) 156/100 (118) Pulse Ox 99 Capillary Refill : Height, Weight, BMI Height: 5'10.00" Weight: 185lbs. 2.0oz. 83.958788ff; 28.00 BMI Method: General Appearance: No Apparent Distress, WD/WN HEENT: PERRL/EOMI Neck: Supple Respiratory: No Respiratory Distress Cardiovascular: Regular Rate, Rhythm Gastrointestinal: Non Tender, Soft Back: CVA Tenderness (L) Neurologic/Psychiatric: Alert, Oriented x3 Skin: Warm/Dry Procedures/Interventions Date of ETT Placement: Mar 02, 2019 Time of ETT Placement: 0320 Progress/Results/Core Measures Suspected Sepsis SIRS Temperature: Pulse: Respiratory Rate: Blood Pressure / Mean: Results/Orders Lab Results Laboratory Tests Test 07/15/20 13:03 Range/Units Urine Color YELLOW Urine Clarity CLOUDY Urine pH 6.5 5-9 Urine Specific [place] 1.020 1.016-1.022 Urine Protein 3+ H NEGATIVE Urine Glucose (UA) 2+ H NEGATIVE Urine Ketones NEGATIVE NEGATIVE Urine Nitrite NEGATIVE NEGATIVE Urine Bilirubin NEGATIVE NEGATIVE Urine Urobilinogen 0.2 < = 1.0 MG/DL Urine Leukocyte Esterase TRACE H NEGATIVE Urine RBC (Auto) 2+ H NEGATIVE Urine RBC 10-25 H /HPF Urine WBC 25-50 H /HPF Urine Squamous Epithelial Cells 2-5 /HPF Urine Crystals NONE /LPF Urine Bacteria TRACE /HPF Urine Casts PRESENT /LPF Urine Hyaline Casts 5-10 H /LPF Urine Mucus LARGE H /LPF Urine Other 50+ SPERM PRESENT /HPF Urine Culture Indicated YES My Orders Orders - ROSALINO DUQUE DO Ua Culture If Indicated (07/15/20 13:00) Ct Abdomen/Pelvis Wo (07/15/20 13:00) Ketorolac Injection (Toradol Injection) (07/15/20 13:15) Hydrocodone/Apap 5/325 Tablet (Lortab 5 (07/15/20 13:15) Urine Culture (07/15/20 13:03) Ceftriaxone For Im Use (Rocephin For Im (07/16/20 09:00) Lidocaine 1% Inj 20 Ml (Xylocaine 1% Inj (07/15/20 13:45) Medications Given in ED Current Medications Medications Dose Ordered Sig/Ruperto Route Start Time Stop Time Status Last Admin Dose Admin Acetaminophen/ Hydrocodone Bitart 2 ea ONCE ONCE PO 07/15/20 13:15 07/15/20 13:16 DC 07/15/20 13:14 2 EA Ketorolac Tromethamine 60 mg ONCE ONCE IM 07/15/20 13:15 07/15/20 13:16 DC 07/15/20 13:14 60 MG Vital Signs/I&O 07/15/20 13:03 Temp 36.8 Pulse 88 Resp 14 B/P (MAP) 156/100 (118) Pulse Ox 99 Capillary Refill : Progress Note : Progress Note Patient with possible symptoms of UTI pyelonephritis or kidney stones I will check labs imaging treat symptoms and reassess. No signs of kidney stone on CT however he definitely has signs of pyelonephritis based off urinalysis and CT results. Patient given a shot of Rocephin here and he says he feels well and would like to go home so I will treat him with outpatient antibiotics and told him to drink plenty of fluids follow-up primary care provider later this week and come back to the ED sooner with worsening pain fevers vomiting or other general concerns. Patient aware and agreeable with plan and verbalized understanding of the above instructions. Departure Impression Primary Impression: Pyelonephritis Disposition: 01 HOME, SELF-CARE Condition: Stable Departure-Patient Inst. Referrals: SELFOMARI MD (PCP) Primary Care Physician FANY WALTER APRN (Family) Primary Care Physician Patient Instructions: Urinary Tract Infection, Adult (DC) Scripts Cephalexin (Cephalexin) 500 Mg Tablet 1000 MG PO BID for 10 Days, TAB Prov: ROSALINO DUQUE DO 07/15/20 ROSALINO DUQUE DO July 15, 2020 13:10
[2020-07-15 13:14] LABS: CLARITY,URINE CLOUDY; COLOR,URINE YELLOW; GLUCOSE, URINE (UA) 2+ (NEGATIVE); KETONES,URINE NEGATIVE (NEGATIVE); PH,URINE 6.5 (5-9); PROTEIN,URINE 3+ (NEGATIVE)
[2020-07-15 13:15] LABS: BACTERIA,URINE TRACE /HPF; BILIRUBIN,URINE NEGATIVE (NEGATIVE); LEUKOCYTE ESTERASE ,URINE TRACE (NEGATIVE); NITRITE,URINE NEGATIVE (NEGATIVE); WBC,URINE 25-50 /HPF
[2020-07-15] MEDS ORDERED: HYDROcodone/APAP 5 MG/325 MG (LORTAB) TAB PO ONE (13:15)
[2020-07-15] MEDS ORDERED: KETOROLAC 60 MG/2 ML VIAL IM ONE (13:15)
[2020-07-15 13:16] LABS: URINE OTHER 50+ SPERM PRESENT /HPF
[2020-07-15] MEDS ORDERED: LIDOCAINE 1% INJ 20 ML 20 ML VIAL INJ ONE (13:45)
--- NOTE | 2020-07-15 14:12 | Diagnostic Imaging Report ---
PROCEDURE: CT abdomen and pelvis without contrast. TECHNIQUE: Multiple contiguous axial images were obtained through the abdomen and pelvis without the use of intravenous contrast. Auto Exposure Controls were utilized during the CT exam to meet ALARA standards for radiation dose reduction. INDICATION: Left flank pain. COMPARISON is made with prior CT from 05/12/2020. There is trace bilateral pleural effusions with subsegmental bibasilar atelectasis. Liver and gallbladder are unremarkable. There is no biliary ductal dilatation. Pancreas does contain some calcifications in the pancreatic head, likely owing to prior pancreatitis. The spleen is unremarkable. No adrenal mass is detected. Punctate nonobstructing calculi in the lower pole left kidney are noted. There is inflammatory stranding just medial to the kidney in a periureteral location. Stranding does continue inferiorly in the retroperitoneum. No definite ureteral calculi or hydronephrosis is seen however. Aorta is unremarkable. Bladder is diffusely thick-walled but incompletely distended. Small and large bowel loops are normal caliber. No free fluid or fluid collection is seen. Prostate is unremarkable. IMPRESSION: 1. Findings consistent with chronic calcific pancreatitis. 2. Punctate nonobstructing left renal calculi. There is some inflammatory stranding in the region of the proximal left ureter and extending inferiorly in the left retroperitoneum. But no definite ureteral calculi or hydronephrosis is identified. Findings could be owing to an infectious/inflammatory process involving the urinary tracts versus perhaps recent passage of a calculus. There is diffuse bladder wall thickening as well which could be owing to cystitis. No other significant abnormality is seen. Dictated by: Dictated on workstation # [id number]
[2020-07-15] MEDS ORDERED: CEPH500T PO (14:19)
[2020-07-15] MEDS ORDERED: cefTRIAXone 1,000 MG IV (ROCEPHIN) VIAL ONE (14:30)
[2020-07-15 15:16] VITALS: BP 155/97
[2020-07-16] MEDS ORDERED: cefTRIAXone 1,000 MG/2.86 ml vial (IM ONLY) IM SCH (09:00)
== END 2020-07-15 15:14 | disposition home or self-care (01) ==
LOC: EDUNIT# 12:47 → ER FS 12:50
DX: N12 Tubulo-interstitial nephritis, not specified as acute or chronic (principal); I10 Essential (primary) hypertension; G40.909 Epilepsy, unspecified, not intractable, without status epilepticus; E11.9 Type 2 diabetes mellitus without complications; F41.9 Anxiety disorder, unspecified; F32.9 Major depressive disorder, single episode, unspecified; F17.210 Nicotine dependence, cigarettes, uncomplicated; Z86.73 Personal history of transient ischemic attack (TIA), and cerebral infarction without residual deficits; Z79.4 Long term (current) use of insulin; Z79.82 Long term (current) use of aspirin; Z79.899 Other long term (current) drug therapy
CPT/HCPCS: 74176; 81000; 87077; 87088

== ENCOUNTER 2020-11-25 16:54 | Emergency (ER) | payer OTHER ==
[~2020-11-25] VITALS: Ht 177.8 cm; Wt 88.4 kg
[~2020-11-25 16:54] MED LIST changes: +CEPH500T PO; -DOXY100C2 PO; +DOXY100C5 PO; -QUET25TA34 PO; +QUET25TA35 PO
--- OUTSIDE RECORDS SUMMARY | 2020-11-25 17:00 | XMS REPORT | Encounter Summary ---
Author Author [facility] Organization [facility] Address Unknown Phone Unavailable Care Team Providers Care [facility] Underwriter Name Role Phone Lo Wilson MD Unavailable Ghada Haywood Unavailable Unavailable Carmelita Avila NP PCP Encounter Details Care Team Description Date Type Department Buffy Queen RN Cerebrovascular accident (CVA), unspecif ied mechanism (HCC) (Primary Dx) 10/10/2020 Orders Only Cardiology: [facility] [place], [id number] [place] [address]. [address] [place] [address] Social History Date Tobacco Use Types Packs/Day Years Used Quit: 04/06/2019 Former Smoker Cigarettes 1.5 15 Smokeless Tobacco: Never Used Comments Alcohol Use Standard Drinks/Week Not Currently 0 (1 standard drink = 0.6 o z pure alcohol) Sex Assigned at Date Recorded Not on file documented as of this encounter Functional Status Date of Assessment Functional Status Response 04/26/2019 Does the patient have a hearing impairment: No documented as of this encounter Plan of Treatment Order Schedule Name Type Priority Associated Diag noses 150 Occurrences starting 10/10/2020 unti l 10/10/2021 DEVICE EVALUATION - Device Check Routine Cerebrovas cular accident REMOTE ILR Remote (CVA), unspecified mechanism (HCC) documented as of this encounter Goals Goal Patient Associated Recent Progress Patient-Stat Aut hor Goal Type Problems ed? To be able to Stay in Own Home Lifestyle No Karen, for as Long as Possible MONTSE So documented as of this encounter Visit Diagnoses Diagnosis Cerebrovascular accident (CVA), unspeci fied mechanism (HCC) - Primary documented in this encounter Additional Health Concerns Assessment Noted Time A fall risk assessment has been completed for the pat ient 10/20/2019 9:49 AM CDT PHQ-2 Depression Total Score: 0 07/20/2019 11:27 AM CDT documented as of this encounter
--- OUTSIDE RECORDS SUMMARY | 2020-11-25 17:00 | XMS REPORT | Clinical Summary ---
Author Author [facility] Organization [facility] Address Unknown Phone Unavailable Care Team Providers Care Oil Expert Name Role Phone Lo Wilson MD Unavailable Ghada Haywood Unavailable Unavailable Carmelita Avila NP PCP Source Comments Some departments are not documenting in the electronic medical record. If you d o not see the information that you expected, contact Release of Information in [facility] [employer] Information Management department at [phone] for further assistan ce in locating additional records.[facility] Allergies Comments Active Allergy Reactions Severity Noted Date Patient notes experiencing hallucinations and mood changes w/ this medication. Varenicline HALLUCINATION High 04/26/2019 S Clindamycin HYPOTENSION, High 04/02/2017 SYNCOPE Metformin NAUSEA AND Low 04/02/2017 VOMITING Zolpidem UNKNOWN Low 07/07/2019 Medications End Date Status Medication Sig Dispensed Refills Start Date Active gabapentin (NEURONTIN) Take 800 mg 0 800 mg tablet by mouth three times daily. Active atorvastatin (LIPITOR) 40 Take 40 mg by 0 mg tablet mouth daily. Active traZODone (DESYREL) 100 Take 100 mg 0 mg tablet by mouth at bedtime as needed. Active levETIRAcetam (KEPPRA) Take one 3 02 500 mg tablet tablet by 0 mouth twice daily. Active aspirin EC 81 mg tablet Take one 90 tablet 0 tablet by 0 mouth daily. Take with food. Active insulin pump -ASPART- by SubQ Pump 0 Patients Own route Three times daily with meals and as needed. Active sertraline (ZOLOFT) 100 Take one 30 tablet 3 02 /29/202 mg tablet tablet by 0 mouth daily. Active meloxicam (MOBIC) 15 mg Take one 90 tablet 3 tablet tablet by 0 mouth daily. Active HYDROcodone/acetaminophen Take 1 tablet 0 (NORCO) 5/325 mg tablet by mouth every 4 hours as needed for Pain Active famotidine (PEPCID) 40 mg Take 1 tablet 0 04/0 tablet by mouth [address]. Active omep[address]ole [address] (PRILOSEC) Take 1 0 10/12 20 mg capsule capsule by 0 mouth daily. Active cyclobenzaprine Take 1 tablet 0 (FLEXERIL) 10 mg tablet by mouth at 0 bedtime daily. Active Problems Problem Noted Date Malaise 04/25/2019 Uncontrolled hypertension 04/13/2019 CVA (cerebral vascular accident) 03/02/2019 Overview: Formatting of this note might be differ ent from the original. 05/02/2019 - EVM: MCOT for approximate ly 23 days is borderline normal demonstrating: Very rare premature atr ial and ventricular contractions making up <1% of total beats. The dianna ent submitted 8 triggered events of which 7 out of 8 of these correlated wi th normal sinus rhythm or sinus tachycardia. Only one of these trigger ed events was associated with a premature ventricular contraction. No cardiac arrhythmia to account for patient's symptoms. This is a normal s tudy for patient age. Overall, low risk study. Chronic diarrhea 07/07/2013 Abdominal pain 07/07/2013 Overview: Formatting of this note might be differ ent from the original. Location: [facility] Diabetes 07/07/2013 Resolved Problems Problem Noted Date Resolved Date Generalized seizure 03/02/2019 03/08/2019 Hyperglycemia 03/02/2019 03/08/2019 Metabolic acidosis 03/02/2019 03/08/2019 Acute hypercapnic respiratory failure 03/02/2019 03/08/2019 On mechanically assisted ventilation 03/02/2019 0 03/08/2019 Seizure 03/02/2019 03/08/2019 Encounters Care Team Description Date Type Specialty Buffy Queen RN Cerebrovascular accident (CVA), unspecif ied mechanism (HCC) (Primary Dx) 10/10/2020 Orders Only Cardiology from Last 3 Months Immunizations Name Administration Dates Next Due Pneumococcal Vaccine 03/04/2019 (23-Iram Adult) Surgical History Surgery Date Site/Laterality Comments HX APPENDECTOMY SINUS SURGERY HERNIA REPAIR Medical History Medical History Date Comments Type II diabetes mellitus (HCC) Gout Kidney stones Arthritis Depression CVA (cerebral vascular accident) (HCC) 03/2019 Family History Medical History Relation Name Comments Diabetes Brother Heart Disease Father Hyperlipidemia Father Hypertension Father Seizures Father Cancer Maternal pancreatic Grandfather Diabetes Mother Hyperlipidemia Mother Hypertension Mother Cancer-Colon Paternal Grandfather Cancer-Colon Paternal Uncle Relation Name Status Comments Brother Father Alive Maternal Grandfather Mother Alive Paternal Grandfather Paternal Uncle Social History Date Tobacco Use Types Packs/Day Years Used Quit: 04/06/2019 Former Smoker Cigarettes 1.5 15 Smokeless Tobacco: Never Used Comments Alcohol Use Standard Drinks/Week Not Currently 0 (1 standard drink = 0.6 o z pure alcohol) Sex Assigned at Date Recorded Not on file Last Filed Vital Signs Reading Time Taken Comments Vital Sign 160/110 10/20/2019 9:49 AM CDT Blood Pressure 89 10/20/2019 9:49 AM CDT Pulse 36.3 C (97.3 F) 07/20/2019 11:27 AM CDT Temperature 20 07/07/2013 11:39 AM CDT Respiratory Rate 97% 04/29/2019 11:55 AM [facility] Oxygen Saturation - - Inhaled Oxygen Concentration 95.7 kg (211 lb) 10/20/2019 9:49 AM CDT Weight 177.8 cm (5' 10") 10/20/2019 9:49 AM CDT Height 30.28 10/20/2019 9:49 AM CDT Body Mass Index Plan of Treatment Health Maintenance Due Date Last Done Comments HIV SCREENING 1989 DTAP/TDAP VACCINES (1 - 1992 Tdap) HEPATITIS C SCREENING 1992 PHYSICAL (COMPREHENSIVE) 1992 EXAM INFLUENZA VACCINE 09/30/2020 Goals Goal Patient Associated Recent Progress Patient-Stat Aut hor Goal Type Problems ed? 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 04/26/2019 1:04 AM Full Code 04/26/2019 12:16 AM Provider has discussed Code Status No, more discussi on w/Patient or Family? needed 03/09/2019 4:36 PM Full Code 03/02/2019 6:04 AM Provider has discussed Code Status Yes w/Patient or Family?
--- NOTE | 2020-11-25 17:14 | ED General ---
General Chief Complaint: General Problems/Pain Stated Complaint: N/V; HEADACHE Source of Information: Patient Exam Limitations: No Limitations History of Present Illness Date Seen by Provider: Nov 25, 2020 Time Seen by Provider: 17:00 Initial Comments Patient is a 45-year-old insulin-dependent diabetic with history of noncompliance who presents with nausea vomiting cough, headache and hypertension. Patient has not taken his insulin in several days. He reports headache since yesterday with blood pressure 180/110 today. He is noncompliant with blood pressure medication. Reports nausea vomiting earlier today. No fever chills or sweats. Reports decreased urinary output with minimal urination yesterday and today. No chest pain palpitations, shortness of breath. No abdominal pain. Denies dizziness lightheadedness. No focal extremity weakness or loss of sensation. History of depression. States he stopped taking his medication and the feeling of frustration and giving up. Timing/Duration: 1-2 Days Severity: Moderate Modifying Factors: improves with Other Associated Systoms: Other Allergies and Home Medications Allergies Coded Allergies: NKANo Known Allergies (Verified Allergy, Unknown, 05/19/05) clindamycin (Verified Allergy, Unknown, 05/12/20) Patient Home Medication List Home Medication List Reviewed: Yes Amlodipine Besylate (Amlodipine Besylate) 5 Mg Tablet, 5 MG PO DAILY Prescribed by: PERFECTO JOEL on 05/16/20 1146 Aspirin (Aspirin) 81 Mg Tab.chew, 81 MG PO DAILY, (Reported) Entered as Reported by: CLARK BOYD on 05/14/20 1433 Cephalexin (Cephalexin) 500 Mg Tablet, 1,000 MG PO BID Prescribed by: ROSALINO DUQUE on 07/15/20 1419 Cholecalciferol (Vitamin D3) (Vitamin D3) 125 Mcg Tablet, 250 MCG PO DAILY, (Reported) Entered as Reported by: CLARK BOYD on 05/14/20 1433 Clonidine HCl (Clonidine HCl) 0.1 Mg Tablet, 0.1 MG PO QID, (Reported) Entered as Reported by: CLARK BOYD on 05/14/20 1433 Cyanocobalamin (Vitamin B-12) (B-12) 500 Mcg Tablet, 1,000 MCG PO BID, (Reported) Entered as Reported by: CLARK BOYD on 05/14/20 1433 Cyclobenzaprine HCl (Cyclobenzaprine HCl) 10 Mg Tablet, 10 MG PO DAILY PRN for MUSCLE SPASMS, (Reported) Entered as Reported by: CLARK BOYD on 05/14/20 143 Furosemide (Furosemide) 20 Mg Tablet, 20 MG PO BID, (Reported) Entered as Reported by: CLARK BOYD on 05/14/20 143 Gabapentin (Gabapentin) 800 Mg Tablet, 800 MG PO TID, (Reported) Entered as Reported by: CLARK BOYD on 05/14/20 143 Insulin Determir (Levemir) 1,000 Units/10 Ml Soln, 10 UNITS SQ HS Prescribed by: PERFECTO JOEL on 05/16/20 114 Insulin Lispro (Insulin Lispro) 100 Unit/1 Ml Vial, SQ QIDACHS, (Reported) Entered as Reported by: CLARK BOYD on 05/14/20 143 Lisinopril (Lisinopril) 40 Mg Tablet, 40 MG PO DAILY, (Reported) Entered as Reported by: CLARK BOYD on 05/14/20 143 Methylphenidate HCl (Methylphenidate HCl) 5 Mg Tablet, 5 MG PO BID, (Reported) Entered as Reported by: CLARK BOYD on 05/14/20 143 Methylphenidate HCl (Methylphenidate HCl) 10 Mg Tablet, 10 MG PO BID, (Reported) Entered as Reported by: CLARK BOYD on 05/14/20 143 Metoprolol Succinate (Metoprolol Succinate) 100 Mg Tab.er.24h, 100 MG PO DAILY Prescribed by: PERFECTO JOEL on 05/16/20 114 [place] 3 Polyunsat Fatty Acids (Fish Oil 1,000 mg Capsule) 1,000 Mg Cap, 1,000 MG PO BID, (Reported) Entered as Reported by: CLARK BOYD on 05/14/20 143 Potassium Chloride (Potassium Chloride) 20 Meq Tablet.er, 20 MEQ PO BID, (Reported) Entered as Reported by: CLARK BOYD on 05/14/20 143 Quetiapine Fumarate (Quetiapine Fumarate) 25 Mg Tablet, 50 MG PO HS, (Reported) Entered as Reported by: CLARK BOYD on 05/14/20 143 Sertraline HCl (Sertraline HCl) 100 Mg Tablet, 100 MG PO DAILY, (Reported) Entered as Reported by: CLARK BOYD on 05/14/20 1433 Simvastatin (Simvastatin) 40 Mg Tablet, 40 MG PO HS, (Reported) Entered as Reported by: CLARK BOYD on 05/14/20 1433 Trazodone HCl (Trazodone HCl) 150 Mg Tablet, 150 MG PO HS, (Reported) Entered as Reported by: CLARK BOYD on 05/14/20 1433 Review of Systems Review of Systems Constitutional: see HPI EENTM: see HPI Respiratory: see HPI Cardiovascular: see HPI Gastrointestinal: see HPI Genitourinary: see HPI Musculoskeletal: see HPI Skin: see HPI Psychiatric/Neurological: See HPI Hematologic/Lymphatic: See HPI Immunological/Allergic: see HPI All Other Systems Reviewed Negative Unless Noted: Yes Past Tiwzzzm-Zsbxrt-Httuht Hx Patient Social History Tobacco Use?: Yes Immunizations Up To Date Tetanus Booster (TDap): Unknown PED Vaccines UTD: Yes Seasonal Allergies Seasonal Allergies: No Past Medical History Surgeries: Yes (BILAT ING HERNIA, ESS, ) Abdominal, Adenoidectomy, Appendectomy, Tonsillectomy Respiratory: No Chronic Bronchitis Currently Using CPAP: No Currently Using BIPAP: No Cardiac: Yes (BP MEDICATIONS IN THE PAST-NOT CURRENTLY) Hypertension Neurological: Yes Neuropathy, Seizure Disorder, Stroke Genitourinary: Yes Kidney Stones Gastrointestinal: No (HX OF PANCREATISIS) Pancreatitis Musculoskeletal: Yes Arthritis Endocrine: Yes (HAS AN INSULIN PUMP) Diabetes, Insulin dep HEENT: Yes (LEFT EYE SCLERITIS, RIGHT LOSS PERIPHERALVISION AND DEPTH PERCEPTION) Loss of Vision: Right Hearing Impairment: Denies Cancer: No Psychosocial: Yes Sleep Difficulties, Anxiety, Depression Integumentary: No Blood Disorders: No Family Medical History Colon cancer MATERNAL GRANDFATHER Completed stroke 19 FATHER Deafness or hearing loss 19 FATHER Diabetes mellitus 19 MOTHER (MOM, BROTHER, AUNTS) Gastroenteritis 19 MOTHER Hypercholesterolemia 19 FATHER Hypertension 19 FATHER 19 MOTHER Neoplasm PATERNAL GRANDFATHER (STOMACH) MATERNAL GRANDFATHER (COLON) Psychosocial problem 19 MOTHER Seizure disorder 19 FATHER No Pertinent Family Hx Physical Exam Vital Signs Vital Signs - First Documented 11/25/20 17:00 Temp 36.7 Pulse 118 Resp 18 B/P (MAP) 162/102 (122) Pulse Ox 97 O2 Delivery Room Air Capillary Refill : Height, Weight, BMI Height: 5'10.00" Weight: 185lbs. 2.0oz. 83.070903oj; 28.00 BMI Method: General Appearance: No Apparent Distress, WD/WN, Other (Flat affect) Eyes: Bilateral Eye Normal Inspection, Bilateral Eye PERRL, Bilateral Eye EOMI HEENT: PERRL/EOMI, Normal ENT Inspection, Pharynx Normal, Moist Mucous Membranes Neck: Full Range of Motion, Non Tender, Supple Respiratory: Chest Non Tender, Lungs Clear Cardiovascular: Regular Rate, Rhythm Gastrointestinal: Non Tender, Soft Back: Normal Inspection Extremity: Normal Capillary Refill, Non Tender Neurologic/Psychiatric: Alert, Oriented x3, No Motor/Sensory Deficits, Normal Mood/Affect Skin: Normal Color Focused Exam Sepsis Stage: Ruled Out Procedures/Interventions Date of ETT Placement: Mar 02, 2019 Time of ETT Placement: 319 Progress/Results/Core Measures Suspected Sepsis SIRS Temperature: Pulse: Respiratory Rate: Laboratory Tests 11/25/20 17:10: White Blood Count 9.7 Blood Pressure / Mean: Laboratory Tests 11/25/20 17:10: Creatinine 4.36H, Platelet Count 333, Total Bilirubin < 0.2 Results/Orders Lab Results Laboratory Tests Test 11/25/20 17:09 11/25/20 17:10 11/25/20 17:24 11/25/20 17:35 Range/Units Glucometer 228 H 70-110 MG/DL White Blood Count 9.7 4.3-11.0 10^3/uL Red Blood Count 3.52 L 4.30-5.52 10^6/uL Hemoglobin 10.5 L 13.3-17.7 g/dL Hematocrit 32 L 40-54 % Mean Corpuscular Volume 90 80-99 fL Mean Corpuscular Hemoglobin 30 25-34 pg Mean Corpuscular Hemoglobin Concent 33 32-36 g/dL Red Cell Distribution Width 43.6 H 10.0-14.5 % Platelet Count 333 130-400 10^3/uL Mean Platelet Volume 9.3 9.0-12.2 fL Immature Granulocyte % (Auto) 0 % Neutrophils (%) (Auto) 79 H 42-75 % Lymphocytes (%) (Auto) 12 12-44 % Monocytes (%) (Auto) 6 0-12 % Eosinophils (%) (Auto) 2 0-10 % Basophils (%) (Auto) 1 0-10 % Neutrophils # (Auto) 7.7 1.8-7.8 X 10^3 Lymphocytes # (Auto) 1.1 1.0-4.0 X 10^3 Monocytes # (Auto) 0.6 0.0-1.0 X 10^3 Eosinophils # (Auto) 0.2 0.0-0.3 10^3/uL Basophils # (Auto) 0.1 0.0-0.1 10^3/uL Immature Granulocyte # (Auto) 0.0 0.0-0.1 10^3/uL Sodium Level 134 L 135-145 MMOL/L Potassium Level 5.0 3.6-5.0 MMOL/L Chloride Level 107 98-107 MMOL/L Carbon Dioxide Level 16 L 21-32 MMOL/L Anion Gap 11 5-14 MMOL/L Blood Urea Nitrogen 39 H 7-18 MG/DL Creatinine 4.36 H 0.60-1.30 MG/DL Estimat Glomerular Filtration Rate 15 BUN/Creatinine Ratio 9 Glucose Level 258 H 70-105 MG/DL Calcium Level 8.6 8.5-10.1 MG/DL Corrected Calcium 9.3 8.5-10.1 MG/DL Magnesium Level 1.8 1.6-2.4 MG/DL Total Bilirubin < 0.2 0.1-1.0 MG/DL Aspartate Amino Transf (AST/SGOT) 11 5-34 U/L Alanine Aminotransferase (ALT/SGPT) 10 0-55 U/L Alkaline Phosphatase 77 40-136 U/L Troponin I < 0.30 <0.30 NG/ML Total Protein 6.8 6.4-8.2 GM/DL Albumin 3.1 L 3.2-4.5 GM/DL Arterial Blood pH 7.37 7.37-7.43 Urine Color YELLOW Urine Clarity CLOUDY Urine pH 5.5 5-9 Urine Specific [place] >=1.030 1.016-1.022 Urine Protein 3+ H NEGATIVE Urine Glucose (UA) 3+ H NEGATIVE Urine Ketones TRACE H NEGATIVE Urine Nitrite NEGATIVE NEGATIVE Urine Bilirubin NEGATIVE NEGATIVE Urine Urobilinogen 0.2 < = 1.0 MG/DL Urine Leukocyte Esterase NEGATIVE NEGATIVE Urine RBC (Auto) 1+ H NEGATIVE Urine RBC NONE /HPF Urine WBC TNTC H /HPF Urine Squamous Epithelial Cells NONE /HPF Urine Crystals NONE /LPF Urine Bacteria FEW H /HPF Urine Casts PRESENT /LPF Urine Granular Casts 2-5 H /LPF Urine Coarse Granular Casts 5-10 H /LPF Urine Mucus NEGATIVE /LPF Urine Other 50+ SPERM PRESENT /HPF Urine Culture Indicated YES My Orders Orders - ABDIRAHMAN BRANDON DO Cbc With Automated Diff (11/25/20 17:04) Comprehensive Metabolic Panel (11/25/20 17:04) Acetone,Urine (11/25/20 17:04) Urinalysis (11/25/20 17:04) Troponin I Fs (11/25/20 17:04) Accucheck Q1hr Q1HR (11/25/20 17:04) Ekg-Prn For Chest Pain Or Rhyt (11/25/20 17:04) Magnesium (11/25/20 17:04) Ns Iv 1000 Ml (Sodium Chloride 0.9%) (11/25/20 17:15) Ondansetron Injection (Zofran Injectio (11/25/20 17:15) Famotidine Injection (Pepcid Injection) (11/25/20 17:15) Arterial Blood Gas (11/25/20 17:06) Beta Hydroxybutyrate (11/25/20 17:09) Ekg Tracing (11/25/20 17:23) Urine Culture (11/25/20 17:35) Clonidine Tablet (Catapres Tablet) (11/25/20 18:00) Abg Ph (11/25/20 17:59) Chest 1 View Ap/Pa Only (11/25/20 18:04) Medications Given in ED Current Medications Medications Dose Ordered Sig/Ruperto Route Start Time Stop Time Status Last Admin Dose Admin Clonidine HCl 0.2 mg ONCE ONCE PO 11/25/20 18:00 11/25/20 18:01 DC 11/25/20 18:02 0.2 MG Famotidine 20 mg ONCE ONCE IVP 11/25/20 17:15 11/25/20 17:16 DC 11/25/20 17:16 20 MG Ondansetron HCl 4 mg ONCE ONCE IVP 11/25/20 17:15 11/25/20 17:16 DC 11/25/20 17:16 4 MG Vital Signs/I&O 11/25/20 17:00 Temp 36.7 Pulse 118 Resp 18 B/P (MAP) 162/102 (122) Pulse Ox 97 O2 Delivery Room Air Capillary Refill : Departure Communication (Admissions) EKG: Sinus tach, rate 110, left atrial enlargement, no acute ST-T wave changes Chest x-ray: No acute cardiopulmonary disease on preliminary ED review Patient hypertensive with headache. No focal neurologic deficits. Blood pressure treated and improved. Headache resolved. Patient with hyperglycemia without evidence of DKA. Normal pH trace ketones in urine. Nausea and vomiting medication given. Able to tolerate oral intake. Patient accepted to [facility] per Dr. Aminta Mercedes at 18:00. Impression Primary Impression: Acute kidney failure Additional Impressions: Headache Accelerated hypertension Hyperglycemia Noncompliance Disposition: SHT-TRM HOSP Condition: Critical Transfer Transfer Reason: Exceeds level of care Departure-Patient Inst. Referrals: FANY WALTER APRN (PCP) Primary Care Physician [facility] (Family) Primary Care Physician ABDIRAHMAN BRANDON DO Nov 25, 2020 17:14
[2020-11-25] MEDS ORDERED: FAMOTIDINE 20MG/2ML IV (PEPCID) IVP ONE (17:15)
[2020-11-25] MEDS ORDERED: ONDANSETRON 4 MG/2 ML (SDV) Z0FRAN IVP ONE (17:15)
[2020-11-25] MEDS: NS IV 1000 ML 1,000 ML IV SCH ×2 (17:16→18:46)
[2020-11-25 17:19] LABS: BASOPHILS # (AUTO) 0.1 10^3/uL (0.0-0.1); BASOPHILS % (AUTO) 1 % (0-10); EOSINOPHILS # (AUTO) 0.2 10^3/uL (0.0-0.3); EOSINOPHILS % (AUTO) 2 % (0-10); HEMATOCRIT 32 % (40-54); HEMOGLOBIN 10.5 g/dL (13.3-17.7); LYMPHOCYTES # (AUTO) 1.1 X 10^3 (1.0-4.0); LYMPHOCYTES % (AUTO) 12 % (12-44); MEAN CORPUSCULAR HEMOGLOBIN 30 pg (25-34); MEAN CORPUSCULAR HGB CONC 33 g/dL (32-36); MEAN CORPUSCULAR VOLUME 90 fL (80-99); MEAN PLATELET VOLUME 9.3 fL (9.0-12.2); MONOCYTES # (AUTO) 0.6 X 10^3 (0.0-1.0); MONOCYTES % (AUTO) 6 % (0-12); NEUTROPHILS # (AUTO) 7.7 X 10^3 (1.8-7.8); NEUTROPHILS % (AUTO) 79 % (42-75); PLATELET COUNT 333 10^3/uL (130-400); WHITE BLOOD COUNT 9.7 10^3/uL (4.3-11.0)
[2020-11-25 17:39] LABS: ALANINE AMINOTRANSFERASE 10 U/L (0-55); ALBUMIN 3.1 GM/DL (3.2-4.5); ALKALINE PHOSPHATASE 77 U/L (40-136); BILIRUBIN,TOTAL < 0.2 MG/DL (0.1-1.0); BUN/CREATININE RATIO 9; CALCIUM 8.6 MG/DL (8.5-10.1); CARBON DIOXIDE 16 MMOL/L (21-32); CHLORIDE 107 MMOL/L (98-107); CREATININE SERUM 4.36 MG/DL (0.60-1.30); GFR ESTIMATED 15; GLUCOSE 258 MG/DL (70-105); MAGNESIUM 1.8 MG/DL (1.6-2.4); SODIUM 134 MMOL/L (135-145); TOTAL PROTEIN 6.8 GM/DL (6.4-8.2)
[2020-11-25 17:49] LABS: BACTERIA,URINE FEW /HPF; BILIRUBIN,URINE NEGATIVE (NEGATIVE); CLARITY,URINE CLOUDY; COLOR,URINE YELLOW; GLUCOSE, URINE (UA) 3+ (NEGATIVE); KETONES,URINE TRACE (NEGATIVE); LEUKOCYTE ESTERASE ,URINE NEGATIVE (NEGATIVE); NITRITE,URINE NEGATIVE (NEGATIVE); PH,URINE 5.5 (5-9); PROTEIN,URINE 3+ (NEGATIVE); WBC,URINE TNTC /HPF
[2020-11-25 17:50] LABS: URINE OTHER 50+ SPERM PRESENT /HPF
[2020-11-25] MEDS ORDERED: cloNIDine 0.2 MG (CATAPRES) TAB PO ONE (18:00)
[2020-11-25 18:28] LABS: ABG PCO2 26 MMHG (35-45); ABG PH 7.37 (7.37-7.43); ABG PO2 98 MMHG (79-93); ABG TCO2 15.8 MMOL/L (21.0-31.0)
[2020-11-25 18:29] LABS: ABG BASE EXCESS -8.7 MMOL/L (-2.5-2.5); ABG OXYGEN SATURATION 97 % (94-100); ALLENS TEST NEGATIVE; INSPIRED O2 ROOM AIR; PATIENT TEMP 37; VENTILATOR NO
[2020-11-25 18:30] VITALS: BP 178/93
--- NOTE | 2020-11-25 18:36 | Diagnostic Imaging Report ---
INDICATION: Cough, fever. COMPARISON: 05/13/2020. TECHNIQUE: Two radiographs of the chest dated November 25, 2020. FINDINGS: Loop recorder is again seen overlying the left lower chest. The cardiac silhouette is within normal limits in size. No significant pulmonary vascular congestion. The lungs are clear of focal pulmonary opacity. No pleural effusion. No pneumothorax. No acute osseous abnormality. IMPRESSION: Similar-appearing examination without acute cardiopulmonary abnormality. Dictated by: Dictated on workstation # [id number]
[2020-11-25] MEDS ORDERED: LABETALOL HCL 20 MG/4 ML VIAL IV ONE (18:45)
== END 2020-11-25 19:30 | disposition short-term general hospital (02) ==
LOC: EDUNIT# 16:54 → ER FS 16:56
DX: N17.9 Acute kidney failure, unspecified (principal); R51.9 Headache, unspecified; I10 Essential (primary) hypertension; E11.65 Type 2 diabetes mellitus with hyperglycemia; F41.9 Anxiety disorder, unspecified; F32.9 Major depressive disorder, single episode, unspecified; G40.909 Epilepsy, unspecified, not intractable, without status epilepticus; Z91.19 Patient's noncompliance with other medical treatment and regimen; Z86.73 Personal history of transient ischemic attack (TIA), and cerebral infarction without residual deficits; Z79.4 Long term (current) use of insulin; Z79.899 Other long term (current) drug therapy; Z79.82 Long term (current) use of aspirin
CPT/HCPCS: 36415; 71045; 80053; 81000; 81002; 82010; 82800; 82805; 82947; 83735; 84484; 85025; 87077; 87088; 93005

== ENCOUNTER 2021-02-22 09:39 | Emergency (ER) | payer OTHER ==
[~2021-02-22] VITALS: Ht 177 cm; Wt 88.0 kg
[~2021-02-22 09:39] MED LIST changes: +CYCL10TA25 PO; -CYCL10TA9 PO
--- OUTSIDE RECORDS SUMMARY | 2021-02-22 09:44 | XMS REPORT | Clinical Summary ---
Author Author [facility] Organization [facility] Address Unknown Phone Unavailable Care Team Providers Care Photography Manager Name Role Phone Austin, Carmelita AMANDA PCP Allergies Comments Active Allergy Reactions Severity Noted Date Clindamycin Dizziness, High 04/02/2017 Hypotension, Syncope, Hives Metformin Abdominal Low 04/02/2017 Pain, Nausea And Vomiting Pt states morphine makes him aggressive and doesn't like taking it Opioids - Morphine 12/12/2020 Analogues Patient notes experiencing hallucinations and mood changes w/ this medication. Varenicline Hallucination High 04/26/2019 s Other reaction(s): sleep walking, UNKNOWN Zolpidem Low 07/07/2019 Medications End Date Status Medication Sig Dispensed Refills Start Date Active amLODIPine (NORVASC) 5 MG Take 5 mg by 0 tabletIndications: mouth daily. hypertension Active aspirin 81 MG chewable Chew 81 mg 0 tabletIndications: daily. prevention of cerebrovascular accident Active cyclobenzaprine Take 10 mg by 0 (FLEXERIL) 10 MG mouth 2 (two) tabletIndications: muscle times a day spasm as needed for muscle spasms. Active methylphenidate HCl Take 5 mg by 0 (RITALIN) 5 MG tablet mouth every morning. Active methylphenidate HCl Take 10 mg by 0 (RITALIN) 10 MG tablet mouth 2 (two) times a day. Active QUEtiapine (SEROQUEL) 50 Take 50 mg by 0 MG tablet mouth nightly. Active sertraline (ZOLOFT) 100 Take 100 mg 0 mg tablet by mouth daily. Active trazodone (DESYREL) 100 Take 100 mg 0 MG tablet by mouth nightly. Active ALPRAZolam (XANAX) 0.5 MG Take 0.5 mg 0 tablet by mouth nightly as needed. Active atorvastatin (LIPITOR) 20 Take 20 mg by 0 MG tablet mouth nightly. Active loratadine (CLARITIN) 10 Take 10 mg by 0 mg tablet mouth daily as needed for allergies. Active cyanocobalamin (VITAMIN Take 50 mcg 0 B-12) 50 mcg tablet by mouth daily. Active cholecalciferol, vitamin Take 2,000 0 D3, 1,000 units(25 mcg) Units by tablet mouth daily. Active omega 3 fish oil (SEA Take 1 0 OMEGA) DHA 200 mg-EPA 300 capsule by mg (1,000 mg) capsule mouth daily. Active hydrALAZINE (APRESOLINE) Take 1 tablet 90 tablet 2 100 MG tablet (100 mg 1 total) by mouth every 8 (eight) hours while awake. Active caRVEDILoL (COREG) 12.5 Take 0.5 60 tablet 2 MG tablet tablets (6.25 1 mg total) by mouth 2 (two) times a day with meals. Active insulin detemir U-100 Inject 10 10 mL 1 11/01 (LEVEMIR) 100 unit/mL Units under 1 injectionIndications: the skin type 1 diabetes mellitus nightly. Active insulin lispro (HUMALOG) Inject 1-10 10 mL 1 0 100 unit/mL injection Units under 1 the skin 3 (three) times a day before meals. Active gabapentin (NEURONTIN) Take 2 90 capsule 0 100 MG capsule capsules (200 1 mg total) by mouth 3 (three) times a day. Active acetaminophen (TYLENOL) Take 2 0 325 MG tablet tablets (650 1 mg total) by mouth every 6 (six) hours as needed. Active losartan (COZAAR) 100 MG Take 1 tablet 30 tablet 0 tablet (100 mg 1 total) by mouth daily. Active multiple vitamins B Take 1 tablet 30 tablet 0 12/01 complex with C by mouth 1 (NEPHRO-ELIJAH) 0.8 mg every tablet evening. Active calcium acetate,phosphat Take 2 90 capsule 0 1 bind, (PHOSLO) 667 mg capsules 1 capsule (1,334 mg total) by mouth 3 (three) times a day with meals. Active Problems Problem Noted Date Strain of muscle, fascia and tendon at neck level, in itial encounter 12/22/2020 Last Assessment & Plan: Formatting of this note might be differ ent from the original. Needs myofascial release/rolfing as out pt Inpt: can do heat, and ice alternating therapy. Have to avoid nsaids due to ckd Mastoiditis of left side 12/21/2020 Last Assessment & Plan: Formatting of this note might be differ ent from the original. Chronic headache, hx of sinus infection s, uncontrolled DM I - will treat as acute infection. Discussed w ID, recomm end Augmentin for now, started 12/21 and monitor Urinary tract infection without hematuria 12/12/2020 Last Assessment & Plan: Formatting of this note might be differ ent from the original. -Blood cultures negative, urine culture s growing MSSA Had been changed to keflex 12/20, but I D agreed changing to cover sinuses and mastoid bone - augmentin empiricall y 12/21 -Appreciate urology consult, no active intervention for nephrolithiasis Acute kidney injury superimposed on chronic kidney di sease 12/12/2020 Last Assessment & Plan: Formatting of this note might be differ ent from the original. -Cr reported to be 1-1.3 in 04/2020 -Progressive worsening with signs of ne phrotic syndrome -Status post right IJ temporary hemodia lysis catheter placement --->delayed today due to dialysis. IR will now do p ermanent line tomorrow. -s/p renal biopsy, preliminary report s uggesting possible diabetic nephropathy -Nephrology on board -Currently receiving hemodialysis per n ephrology, plans for permacath placement Anemia due to chronic kidney disease 12/12/2020 Last Assessment & Plan: Formatting of this note might be differ ent from the original. -Could be related to renal disease iron studies unremarkable -EPO given per nephrology -Transfuse to keep hemoglobin more than 7 Nephrolithiasis 12/12/2020 Last Assessment & Plan: Formatting of this note might be differ ent from the original. -Urology recommended outpatient follow- up Dyslipidemia 12/12/2020 Last Assessment & Plan: Formatting of this note might be differ ent from the original. -Resumed home statin Nephrotic syndrome 12/12/2020 Last Assessment & Plan: Formatting of this note might be differ ent from the original. -Likely diabetic nephropathy -Per nephrology VALERIE (acute kidney injury) 11/25/2020 Last Assessment & Plan: Formatting of this note might be differ ent from the original. Resolved metabolic acidosis. Likely com ponent of CKD related to diabetic hypertension. Slowly improving renal fu nction. Discussed with nephrology, change IVF to LR and reduce rate given considerably improved UO. Continue same otherwise. Type 1 diabetes mellitus with hyperglycemia 11/26/19 Last Assessment & Plan: Formatting of this note might be differ ent from the original. -A1C 12.4 on 11/26/20 -Resumed Levemir, dosing being adjusted -Additional sliding scale insulin cover age. - reviewing last 24 hrs and changes antonieta ng made Hypertension 11/25/2020 Last Assessment & Plan: Formatting of this note might be differ ent from the original. -Resumed home dose of amlodipine, Coreg , hydralazine -Continues to be suboptimally controlle d, uptitrated the dose of amlodipine and subsequently hydralazine Vaccine counseling 11/25/2020 Last Assessment & Plan: Formatting of this note might be differ ent from the original. -Patient says he has not received COVID vaccine. -Encouraged patient to consider getting COVID vaccine prior to discharge. -Explained that he is high risk for sev ere disease and should he get the COVID infection. He says he is wel l aware of this and still has no interest in receiving COVID vaccine. Depression 11/25/2020 Last Assessment & Plan: Formatting of this note might be differ ent from the original. -Patient admits he has felt depressed a nd is frustrated by his medical issues. -He denies any suicidal ideation. -Continue home doses of sertraline, Ser oquel, and trazodone. Noncompliance with diabetes treatment 11/25/2020 Tobacco abuse 11/25/2020 Last Assessment & Plan: Formatting of this note might be differ ent from the original. -Patient continues to smoke 1 ppd. -Strongly encourage smoking cessation. From review of notes from [facility], it appears his a r specialist has also stres sed importance of smoking cessation. -Have nicotine patch available during h ospitalization. Encounters Care Team Description Date Type Specialty Nuvia Lagos NP Nephrolithiasis (Primary Dx) 12/14/2020 Orders Only Urology Rafa Kramer MD Savoji, Paymon, MD Joseph, Arun, MD Risal, Jyoti, MD Dave, Aditi, MD Epp, Galen, MD Urinary tract infection without hematuri a, site unspecified (Primary Dx); Acute renal failure superimposed on chronic kidney disease, unspecified CKD stage, unspecified acute renal failure type (HCC); Nephrolithiasis; Headache, unspecified headache type 12/12/2020 [facility] Internal Pr dicine - Encounter 12/25/2020 Hospitalist, Physician Dedra Daly MD Type 1 diabetes mellitus with hyperglyce marisela (HCC); Tobacco abuse; Noncompliance with diabetes treatment; Primary hypertension; Depression, unspecified depression type; VALERIE (acute kidney injury) (HCC); Mixed hyperlipidemia 11/25/2020 Hospital - Encounter 11/28/2020 from Last 3 Months Family History Medical History Relation Name Comments Hypertension Father Colon cancer Maternal Grandfather Diabetes Mother Hypertension Mother Stomach cancer Paternal Grandfather Relation Name Status Comments Father Maternal Grandfather Mother Paternal Grandfather Social History Date Tobacco Use Types Packs/Day Years Used Current Every Day Smoker 1 30 Smokeless Tobacco: Current User Comments Alcohol Use Standard Drinks/Week Not Currently 0 (1 standard drink = 0.6 o z pure alcohol) Sex Assigned at Date Recorded Not on file Last Filed Vital Signs Reading Time Taken Comments Vital Sign 154/98 12/25/2020 12:40 PM CDT Blood Pressure 78 12/25/2020 12:40 PM CDT Pulse 36.5 C (97.7 F) 12/25/2020 12:40 PM CDT Temperature 14 12/25/2020 12:40 PM CDT Respiratory Rate 94% 12/25/2020 12:40 PM CDT Oxygen Saturation - - Inhaled Oxygen Concentration 83.7 kg (184 lb 8 oz) 12/25/2020 6:00 AM CDT Weight 177.8 cm (5' 10") 12/13/2020 12:04 PM CDT Height 26.47 12/13/2020 12:04 PM CDT Body Mass Index Plan of Treatment Health Maintenance Due Date Last Done Comments Diabetes Mellitus 1975 Ophthalmology Exam Spirometry # 1975 Td/Tdap# 1975 Tobacco Cessation 1975 Counseling # Depression Monitoring 1975 PHQ-9 # COVID-19 Vaccine (1) 1980 Diabetes Mellitus Foot 1984 Exam Lipid Screening 03/02/2020 03/02/2019, 06/03/2018, 05/19/2018 Influenza Vaccine (#1) 2020 04/09/2020, 01/21/2019, 01/21/2019, Additional history exists Diabetes Mellitus 05/26/2021 11/26/2020, Hemoglobin A1C 04/06/2019, 03/02/2019, Additional history exists Pneumococcal Vaccine: 2039 03/04/2019, Pediatrics (0 to 5 Years) 03/25/2016, and At-Risk Patients (6 12/22/2012, to 64 Years) (4 of 4 - Additional PPSV23) history exists Implants Device Identifier Shelf Expiration Date Model / Serial / L ot Implanted Type Area Manufactur er 04/06/2023 [id number] / / [id number] Implant Catheter Dialysis Dl Non-Tissue Right: Vein C OVIDIEN Palindrome Precision Sapphire Implant 14.5fr 19cm [id number] - [id number] Implanted: Qty: 1 on 12/25/2020 by Carlo Atkinson MD at [facility] Description: Right Internal Jugular Tunneled Dialysis Catheter Procedures Comments Procedure Name Priority Date/Time Associated Diag nosis GLUCOSE POC Timed 12/25/2020 12:58 PM CDT IR TUNNELED DIALYSIS Routine 12/25/2020 CATHETER PLACEMENT 11:59 AM CDT GLUCOSE POC Timed 12/25/2020 7:40 AM CDT GLUCOSE POC Timed 12/25/2020 3:08 AM CDT COMPLETE BLOOD COUNT Routine 12/25/2020 2:45 AM CDT RENAL PANEL Timed 12/25/2020 2:45 AM CDT GLUCOSE POC Timed 12/24/2020 11:58 PM CDT GLUCOSE POC Timed 12/24/2020 8:23 PM CDT GLUCOSE POC Timed 12/24/2020 5:47 PM CDT GLUCOSE POC Timed 12/24/2020 12:54 PM CDT HEMODIALYSIS INPATIENT Routine 12/24/2020 11:04 AM CDT GLUCOSE POC Timed 12/24/2020 7:36 AM CDT COMPLETE BLOOD COUNT Routine 12/24/2020 5:00 AM CDT RENAL PANEL Timed 12/24/2020 5:00 AM CDT GLUCOSE POC Timed 12/23/2020 9:09 PM CDT GLUCOSE POC Timed 12/23/2020 4:24 PM CDT GLUCOSE POC Timed 12/23/2020 11:03 AM CDT GLUCOSE POC Timed 12/23/2020 8:55 AM CDT COMPLETE BLOOD COUNT Routine 12/23/2020 6:23 AM CDT GLUCOSE POC Routine 12/22/2020 8:07 PM CDT GLUCOSE POC Routine 12/22/2020 4:46 PM CDT GLUCOSE POC Routine 12/22/2020 11:47 AM CDT GLUCOSE POC Routine 12/22/2020 7:59 AM CDT MAGNESIUM Add-On 12/22/2020 4:11 AM CDT ERYTHROPOIETIN (EPO) Timed 12/22/2020 4:11 AM CDT FERRITIN Routine 12/22/2020 4:11 AM CDT IRON/TRANSFERRIN Timed 12/22/2020 4:11 AM CDT COMPLETE BLOOD COUNT Routine 12/22/2020 4:11 AM CDT RENAL PANEL Routine 12/22/2020 4:11 AM CDT GLUCOSE POC Routine 12/21/2020 8:26 PM CDT GLUCOSE POC Routine 12/21/2020 3:55 PM CDT GLUCOSE POC Routine 12/21/2020 12:18 PM CDT GLUCOSE POC Routine 12/21/2020 7:57 AM CDT CBC AND DIFF (MANUAL DIFF Timed 12/21/2020 IF NECESSARY) 4:20 AM CDT RENAL PANEL Routine 12/21/2020 4:20 AM CDT GLUCOSE POC Routine 12/20/2020 9:44 PM CDT MRI HEAD WO CONTRAST Routine 12/20/2020 6:23 PM CDT GLUCOSE POC Routine 12/20/2020 4:52 PM CDT ERYTHROCYTE SEDIMENTATION Routine 12/20/2020 RATE 12:48 PM CDT GLUCOSE POC Routine 12/20/2020 11:38 AM CDT GLUCOSE POC Routine 12/20/2020 7:44 AM CDT HEMODIALYSIS INPATIENT Routine 12/20/2020 7:38 AM CDT HEPATITIS B SURFACE STAT 12/20/2020 ANTIBODY QUANT 3:01 AM CDT HEPATITIS B CORETOTAL Routine 12/20/2020 ANTIBODY 3:01 AM CDT HEPATITIS B SURFACE Routine 12/20/2020 ANTIGEN 3:01 AM CDT COMPLETE BLOOD COUNT Routine 12/20/2020 3:01 AM CDT RENAL PANEL Routine 12/20/2020 3:01 AM CDT GLUCOSE POC Routine 12/19/2020 8:20 PM CDT GLUCOSE POC Routine 12/19/2020 4:59 PM CDT LEGIONELLA URINE ANTIGEN Routine 12/19/2020 4:55 PM CDT GLUCOSE POC Routine 12/19/2020 11:14 AM CDT HEMODIALYSIS INPATIENT Routine 12/19/2020 8:59 AM CDT GLUCOSE POC Routine 12/19/2020 7:22 AM CDT DIFFERENTIAL, AUTO Routine 12/19/2020 3:30 AM CDT COMPLETE BLOOD COUNT Routine 12/19/2020 3:30 AM CDT RENAL PANEL Routine 12/19/2020 3:30 AM CDT GLUCOSE POC Routine 12/18/2020 9:08 PM CDT XR CHEST 2 VIEWS (PA AND Routine 12/18/2020 LATERAL) 7:16 PM CDT GLUCOSE POC Routine 12/18/2020 5:01 PM CDT GLUCOSE POC Routine 12/18/2020 11:28 AM CDT GLUCOSE POC Routine 12/18/2020 9:10 AM CDT GLUCOSE POC Routine 12/18/2020 8:09 AM CDT MAGNESIUM Routine 12/18/2020 3:24 AM CDT COMPLETE BLOOD COUNT Routine 12/18/2020 3:24 AM CDT RENAL PANEL Routine 12/18/2020 3:24 AM CDT GLUCOSE POC Routine 12/18/2020 12:10 AM CDT GLUCOSE POC Routine 12/17/2020 9:06 PM CDT GLUCOSE POC Routine 12/17/2020 4:47 PM CDT GLUCOSE POC Routine 12/17/2020 12:21 PM CDT IR TUNNELED DIALYSIS Routine 12/17/2020 CATHETER CHECK 11:55 AM CDT US GUIDED BIOPSY KIDNEY Routine 12/17/2020 11:53 AM CDT GLUCOSE POC Routine 12/17/2020 7:57 AM CDT TISSUE PATHOLOGY OR Routine 12/17/2020 BIOPSY 7:18 AM CDT MAGNESIUM Routine 12/17/2020 3:21 AM CDT COMPLETE BLOOD COUNT Routine 12/17/2020 3:21 AM CDT RENAL PANEL Routine 12/17/2020 3:21 AM CDT GLUCOSE POC Routine 12/16/2020 8:15 PM CDT GLUCOSE POC Routine 12/16/2020 4:00 PM CDT GLUCOSE POC Routine 12/16/2020 11:55 AM CDT GLUCOSE POC Routine 12/16/2020 8:10 AM CDT MAGNESIUM Routine 12/16/2020 1:59 AM CDT COMPLETE BLOOD COUNT Routine 12/16/2020 1:59 AM CDT RENAL PANEL Routine 12/16/2020 1:59 AM CDT GLUCOSE POC Routine 12/15/2020 8:20 PM CDT GLUCOSE POC Routine 12/15/2020 4:35 PM CDT GLUCOSE POC Routine 12/15/2020 11:44 AM CDT GLUCOSE POC Routine 12/15/2020 7:31 AM CDT GLUCOSE POC Routine 12/14/2020 9:43 PM CDT GLUCOSE POC Routine 12/14/2020 4:59 PM CDT GLUCOSE POC Routine 12/14/2020 11:23 AM CDT GLUCOSE POC Routine 12/14/2020 9:50 AM CDT GLUCOSE POC Routine 12/14/2020 8:20 AM CDT GLUCOSE POC Routine 12/14/2020 8:11 AM CDT MAGNESIUM Routine 12/14/2020 3:00 AM CDT COMPLETE BLOOD COUNT Routine 12/14/2020 3:00 AM CDT RENAL PANEL Routine 12/14/2020 3:00 AM CDT GLUCOSE POC Routine 12/13/2020 8:56 PM CDT GLUCOSE POC Routine 12/13/2020 5:44 PM CDT US SCROTAL Routine 12/13/2020 4:[address] HEAD WO CONTRAST Routine 12/13/2020 3:41 PM CDT CLOSTRIDIUM DIFFICILE Routine 12/13/2020 TOXIN BY PCR 3:30 PM CDT IR NON TUNNELED DIALYSIS Routine 12/13/2020 CATHETER PLACEMENT 2:33 PM CDT GLUCOSE POC Routine 12/13/2020 11:57 AM CDT GLUCOSE POC Routine 12/13/2020 8:14 AM CDT COMPLETE BLOOD COUNT Routine 12/13/2020 3:12 AM CDT RENAL PANEL Routine 12/13/2020 3:12 AM CDT GLUCOSE POC Routine 12/12/2020 9:40 PM CDT SARS-COV-2 (COVID-19) Routine 12/12/2020 8:01 PM CDT CULTURE, BLOOD STAT 12/12/2020 7:50 PM CDT CULTURE, BLOOD STAT 12/12/2020 7:36 PM CDT ECG STAT 12/12/2020 6:53 PM CDT XR CHEST SINGLE VIEW STAT 12/12/2020 FRONTAL 6:35 PM CDT LACTATE VENOUS WB STAT 12/12/2020 6:16 PM CDT LIPASE STAT 12/12/2020 6:16 PM CDT COMPREHENSIVE METABOLIC STAT 12/12/2020 PANEL 6:16 PM CDT CBC AND DIFF (MANUAL DIFF STAT 12/12/2020 IF NECESSARY) 6:16 PM CDT NTPROBNP STAT 12/12/2020 6:16 PM CDT TROPONIN STAT 12/12/2020 6:16 PM CDT URINALYSIS MICROSCOPIC STAT 12/12/2020 ONLY 5:47 PM CDT URINALYSIS REFLEX STAT 12/12/2020 5:47 PM CDT CULTURE, URINE STAT 12/12/2020 5:47 PM CDT GLUCOSE POC Routine 11/28/2020 3:06 PM CDT PROTEIN ELECTROPHORESIS Routine 11/28/2020 URINE 24HR 1:15 PM CDT GLUCOSE POC Routine 11/28/2020 12:06 PM CDT CULTURE, URINE Routine 11/28/2020 11:39 AM CDT US DUPLEX RENAL COMPLETE Routine 11/28/2020 7:33 AM CDT GLUCOSE POC Routine 11/28/2020 7:13 AM CDT APTT Routine 11/28/2020 2:38 AM CDT PROTHROMBIN TIME/INR Routine 11/28/2020 2:38 AM CDT RENAL PANEL Routine 11/28/2020 2:38 AM CDT GLUCOSE POC Routine 11/27/2020 8:13 PM CDT GLUCOSE POC Routine 11/27/2020 4:34 PM CDT GLUCOSE POC Routine 11/27/2020 3:08 PM CDT URINALYSIS MICROSCOPIC Routine 11/27/2020 ONLY 11:39 AM CDT URINALYSIS (INCLUDES Routine 11/27/2020 MICROSCOPIC REVIEW, IF 11:39 AM CDT INDICATED) GLUCOSE POC Routine 11/27/2020 11:13 AM CDT DRVVT APL TESTING Routine 11/27/2020 10:44 AM CDT HEXAGONAL PHASE Routine 11/27/2020 PHOSPHOLIPID APL TESTING 10:44 AM CDT ANTIPHOSPHOLIPID PANEL II Routine 11/27/2020 10:44 AM CDT ANTICARDIOLIPIN Routine 11/27/2020 ANTIBODIES 10:44 AM CDT [id number] IGG Routine 11/27/2020 AND IGM 10:44 AM CDT ECHO CONGENITAL COMPLETE Routine 11/27/2020 W DOPPLER AND COLOR FLOW 9:22 AM CDT GLUCOSE POC Routine 11/27/2020 7:14 AM CDT RENAL PANEL Routine 11/27/2020 3:19 AM CDT MISC LABORATORY TESTING Routine 11/27/2020 3:19 AM CDT INSULIN AB Routine 11/27/2020 3:19 AM CDT IA-2 AUTOANTIBODIES Routine 11/27/2020 3:19 AM CDT PEGGY-65 AUTOANTIBODY Routine 11/27/2020 3:19 AM CDT C-PEPTIDE Routine 11/27/2020 3:19 AM CDT GLUCOSE POC Routine 11/26/2020 8:25 PM CDT GLUCOSE POC Routine 11/26/2020 5:[address] ABDOMEN PELVIS WO Routine 11/26/2020 CONTRAST 4:33 PM CDT HEPATITIS B SURFACE Add-On 11/26/2020 ANTIBODY 4:02 PM CDT HEPATITIS B CORETOTAL Add-On 11/26/2020 ANTIBODY 4:02 PM CDT HEPATITIS C ANTIBODY Add-On 11/26/2020 4:02 PM CDT HEPATITIS B SURFACE Add-On 11/26/2020 ANTIGEN 4:02 PM CDT ANTINUCLEAR ANTIBODY IFA Routine 11/26/2020 (AILYN) 4:02 PM CDT C4 COMPLEMENT Add-On 11/26/2020 4:02 PM CDT C3 COMPLEMENT Today 11/26/2020 4:02 PM CDT VITAMIN B12 Routine 11/26/2020 4:02 PM CDT FERRITIN Routine 11/26/2020 4:02 PM CDT IRON/TRANSFERRIN Add-On 11/26/2020 4:02 PM CDT RENAL PANEL Routine 11/26/2020 4:02 PM CDT ERYTHROCYTE SEDIMENTATION Add-On 11/26/2020 RATE 4:02 PM CDT PROTEIN ELECTROPHORESIS Routine 11/26/2020 SERUM 4:02 PM CDT SALICYLATE Routine 11/26/2020 4:02 PM CDT GLUCOSE POC Routine 11/26/2020 12:46 PM CDT PROTEIN URINE RANDOM Routine 11/26/2020 11:30 AM CDT CREATININE URINE RANDOM Routine 11/26/2020 QUANT 11:30 AM CDT URINALYSIS MICROSCOPIC Routine 11/26/2020 ONLY 11:30 AM CDT URINALYSIS (INCLUDES Routine 11/26/2020 MICROSCOPIC REVIEW, IF 11:30 AM CDT INDICATED) US RENAL Routine 11/26/2020 11:09 AM CDT RENAL PANEL Timed 11/26/2020 10:18 AM CDT GLUCOSE POC Routine 11/26/2020 7:22 AM CDT THYROID CASCADE Add-On 11/26/2020 3:38 AM CDT HEMOGLOBIN A1C Add-On 11/26/2020 3:38 AM CDT COMPREHENSIVE METABOLIC Routine 11/26/2020 PANEL 3:38 AM CDT CBC AND DIFF (MANUAL DIFF Routine 11/26/2020 IF NECESSARY) 3:38 AM CDT SARS-COV-2 (COVID-19) Routine 11/25/2020 10:38 PM CDT GLUCOSE POC Routine 11/25/2020 10:08 PM CDT from Last 3 Months Results * GLUCOSE POC (12/25/2020 12:58 PM CDT) Only the most recent of 70 results within the time period is included. Glucose POC 140 (H) 70 - 100 mg/dL [facility] Specimen Blood - Blood Performing Organization Address City/State/ZIP Code P miranda Number [facility] [address] [place] [address] * IR Tunneled Dialysis catheter placement (12/25/2020 11:59 AM CDT) Modality Anatomical Region Laterality X-Ray Angiography Vascular, Neck, Chest Specimen Impressions SHADY - 12/25/2020 1:14 PM CDT Impression: Catheter ready for use. Preprocedure: Risk, benefits, and alternatives were discussed in detail with the patient. He agreed to proceed. Procedural pause performed in the presence of all assisting personnel. Fluoroscopy time 0.6 minutes. Single fluoroscopic image obtained. Conscious sedation supplied by a nurse under my supervision (a trained professional in conscious sedation) for 24 minutes with appropriate physiologic monitoring including heart rate monitor, blood pressure monitor, oxygen saturation monitor, and continuous nursing assessment. Conscious sedation achieved with Versed and fentanyl. Narrative SHADY - 12/25/2020 1:14 PM CDT Patient: SOMMER NINA Sex#: M #: [id number] Charanjit#: [id number] Location: [place] [address] Ordering Provider: JANIYA HSIEH Procedure Requested: [id number] IR TUNNELED DIALYSIS CATHETER PLACEMENT Reason for Exam: HD Exam Ordered: 12/24/2020 0300 Begin exam date/time: 12/25/2020 1123 Exam Date/Time: 12/25/2020 1159 DATE: 12/25/2020 12:13 PM EXAM: IR TUNNELED DIALYSIS CATHETER PLACEMENT Technique: The right IJ was assessed with ultrasound and determined to be patent. The skin of the right anterior neck and chest were prepared and draped with maximum sterile barrier technique. The right IJ was punctured from a lateral trajectory under direct ultrasound guidance after anesthetizing the skin with 1% lidocaine and creating a small incision. The microwire was advanced to the cavoatrial junction and used for measurement purposes. A micropuncture sheath was placed to maintain access and capped. The skin and subcutaneous tissues were anesthetized with 1% lidocaine. An additional small incision was created. From this incision to the venotomy site, a subcutaneous tunnel was created through which a 23 cm cuff to tip hemodialysis catheter was placed. The venotomy site was sequentially dilated over wire after removing the micropuncture sheath. The catheter was advanced through the peel-away sheath. The tip of the catheter now lies near the cavoatrial junction. The catheter is ready for immediate use. Both lumens were flushed and locked in standard fashion at the conclusion of the procedure and were functioning well. No immediate complications. Findings: 1. Technically successful placement of r ight IJ tunneled hemodialysis catheter with tip near the cavoatrial junction. Procedure Note Carlo Atkinson MD - 12/25/2020 Patient: SOMMER NINA Sex#: M #: [id number] Charanjit#: [id number] Location: [facility] [id number] Ordering Provider: JANIYA HSIEH Procedure Requested: [id number] IR TUNNELED DIALYSIS CATHETER PLACEMENT Reason for Exam: HD Exam Ordered: 12/24/2020 0300 Begin exam date/time: 12/25/2020 1123 Exam Date/Time: 12/25/2020 1159 DATE: 12/25/2020 12:13 PM EXAM: IR TUNNELED DIALYSIS CATHETER PLACEMENT Technique: The right IJ was assessed with ultrasound and determined to be patent. The skin of the right anterior neck and chest were prepared and draped with maximum sterile barrier technique. The right IJ was punctured from a lateral trajectory under direct ultrasound guidance after anesthetizing the skin with 1% lidocaine and creating a small incision. The microwire was advanced to the cavoatrial junction and used for measurement purposes. A micropuncture sheath was placed to maintain access and capped. The skin and subcutaneous tissues were anesthetized with 1% lidocaine. An additional small incision was created. From this incision to the venotomy site, a subcutaneous tunnel was created through which a 23 cm cuff to tip hemodialysis catheter was placed. The venotomy site was sequentially dilated over wire after removing the micropuncture sheath. The catheter was advanced through the peel-away sheath. The tip of the catheter now lies near the cavoatrial junction. The catheter is ready for immediate use. Both lumens were flushed and locked in standard fashion at the conclusion of the procedure and were functioning well. No immediate complications. Findings: 1. Technically successful placement of r ight IJ tunneled hemodialysis catheter with tip near the cavoatrial junction. IMPRESSION Impression: Catheter ready for use. Preprocedure: Risk, benefits, and alternatives were discussed in detail with the patient. He agreed to proceed. Procedural pause performed in the presence of all assisting personnel. Fluoroscopy time 0.6 minutes. Single fluoroscopic image obtained. Conscious sedation supplied by a nurse under my supervision (a trained professional in conscious sedation) for 24 minutes with appropriate physiologic monitoring including heart rate monitor, blood pressure monitor, oxygen saturation monitor, and continuous nursing assessment. Conscious sedation achieved with Versed and fentanyl. Performing Organization Address City/[facility] P miranda Number SWETHA * Renal Panel (12/25/2020 2:45 AM CDT) Only the most recent of 15 results within the time period is included. Sodium 138.0 136.0 - 145.0 mEq/L [facility] Potassium 3.7 3.4 - 5.1 mEq/L [facility] Chloride 101 98 - 107 mEq/L [facility] Carbon Dioxide 31 20 - 31 mEq/L [facility] Anion Gap 6 5 - 17 mmol/L [facility] Calcium 8.3 8.3 - 10.6 mg/dL [facility] Glucose 183 (H) 70 - 100 mg/dL [facility] Albumin 3.2 (L) 3.5 - 5.0 g/dL [facility] Blood Urea 24 (H) 9 - 23 mg/dL [facility] Nitrogen [facility] Creatinine 2.80 (H) 0.70 - 1.30 mg/dL [facility] eGFR Female AA 22.0 mL/min/1.73m*2 [facility] eGFR Female 18.2 mL/min/1.73m*2 [facility] eGFR Male AA 29.7 mL/min/1.73m*2 [facility] eGFR Male 24.5 mL/min/1.73m*2 [facility] Non-AA [facility] Phosphorus 3.9 2.4 - 5.1 mg/dL [facility] Specimen Blood - Blood Performing Organization Address City/State/ZIP Code P miranda Number [facility] [address] [place] [address] * Complete Blood Count (12/25/2020 2:45 AM CDT) Only the most recent of 11 results within the time period is included. WBC 7.68 4.00 - 11.00 TH/uL [facility] RBC 2.60 (L) 4.31 - 5.84 mil/uL [facility] Hemoglobin 7.9 (L) 13.0 - 17.0 g/dL [facility] Hematocrit 25 (L) 40 - 50 % [facility] MCV 96 80 - 99 fL [facility] MCH 30 27 - 34 pg [facility] MCHC 32 32 - 36 % [facility] RDW 13.2 9.0 - 14.5 % [facility] Platelet Count 252 140 - 400 Th/uL [facility] MPV 9.1 (L) 9.4 - 12.3 fL [facility] Nucleated RBCs 0 0 - 0 /100 WBC [facility] Specimen Blood - Blood Performing Organization Address City/State/ZIP Code P miranda Number [facility] [address] [place] [address] * Erythropoietin (EPO) (12/22/2020 4:11 AM CDT) Erythropoietin 58.6 (H) 2.6 - 18.5 mIU/mL [facility] (EPO) Comment: [employer] DxI 800 Immunoassay System Values obtained with different assay methods or kits cannot be used interchangeably. Results cannot be interpreted as absolute evidence of the presence or absence of malignant disease. Performed at: BN - [facility] [address] [id number] [place] Operator: Jeanie Clements MD, Phone: [phone] Specimen Performing Organization Address City/State/ZIP Code P miranda Number [facility] [address] [place], [place] [address] [facility] Interface [id number] [place] [address] [place] [address] * Magnesium (12/22/2020 4:11 AM CDT) Only the most recent of 5 results within the time period is included. Magnesium 2.1 1.4 - 2.7 mg/dL [facility] Specimen Blood Performing Organization Address City/State/ZIP Code P miranda Number [address] [address] LABORATORIES [facility] [address] [place] [address] * Iron/Transferrin (12/22/2020 4:11 AM CDT) Only the most recent of 2 results within the time period is included. Iron 54 50 - 180 ug/dL [facility] Transferrin 117 (L) 206 - 381 mg/dL [facility] Total 140 (L) 204 - 408 ug/dL [facility] Iron-Binding [facility] Capacity Iron/Transferri 38 15 - 50 % [facility] n % Saturation [facility] Specimen Blood Performing Organization Address City/[facility] Code P miranda Number [address] [address] LABORATORIES [facility] [address] [place] [address] * Ferritin (12/22/2020 4:11 AM CDT) Only the most recent of 2 results within the time period is included. Ferritin 87 20 - 300 ng/mL [facility] Comment: Hospital Lab Method: [employer] Reference Ranges: Male: 10.5 - 307.3 ng/mL Female: 7.3 - 270.7 ng mL Specimen Blood Performing Organization Address City/State/ZIP Code P miranda Number [address] [address] LABORATORIES [facility] [address] [place] [address] * CBC and Diff (manual diff if necessary) (12/21/2020 4:20 AM CDT) Only the most recent of 3 results within the time period is included. WBC 8.31 4.00 - 11.00 TH/uL [facility] RBC 2.38 (L) 4.31 - 5.84 MIL/uL [facility] Hemoglobin 7.2 (L) 13.0 - 17.0 g/dL [facility] Hematocrit 22 (L) 40 - 50 % [facility] MCV 92 80 - 99 fL [facility] MCH 30 27 - 34 pg [facility] MCHC 33 32 - 36 % [facility] RDW 13.0 11.5 - 14.5 % [facility] Platelet Count 207 140 - 400 TH/uL [facility] MPV 9.0 (L) 9.4 - 12.3 fL [facility] Nucleated RBCs 0 0 - 0 /100 [facility] % Neutrophils 67 45 - 78 % [facility] %Lymphocytes 18 15 - 47 % [facility] % Monocytes 10 0 - 12 % [facility] %Eosinophils 4 0 - 7 % [facility] %Basophils 1 0 - 2 % [facility] % Imm Grans 1 0 - 1 % [facility] # Granulocytes 5.64 1.70 - 6.80 TH/uL [facility] # Lymphocytes 1.46 1.00 - 3.30 TH/uL [facility] # Monocytes 0.86 0.20 - 0.90 TH/uL [facility] # Eosinophils 0.30 0.00 - 0.40 TH/uL [facility] # Basophils 0.05 0.00 - 0.10 TH/uL [facility] Specimen Blood Performing Organization Address City/State/ZIP Code P miranda Number [facility] [address] [place] [address] [facility] [address] [place] [address] * MRI Head wo contrast (12/20/2020 6:23 PM CDT) Modality Anatomical Region Laterality Magnetic Resonance Head Specimen Impressions SHADY - 12/20/2020 7:18 PM CDT 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 Mild to moderate mastoid fluid also seen in the right with moderate peripheral left maxillary mucosal thickening seen. Narrative SHADY - 12/20/2020 7:18 PM CDT Patient: SOMMER NINA Sex#: M #: 1975 Charanjit#: [id number] Location: [facility] 3 338-01 Ordering Provider: HOLLEY TERRAZAS Procedure Requested: [id number] MRI HEAD WO CONTRAST Reason for Exam: PERSISTENT HEADACHE Exam Ordered: 12/20/2020 1128 Begin exam date/time: 12/20/2020 1802 Exam Date/Time: 12/20/2020 1823 MRI OF THE BRAIN WITHOUT IV CONTRAST INDICATION: Headaches. TECHNIQUE: Multiplanar multisequence imaging obtained without contrast. COMPARISON: 12/13/2020. FINDINGS: Ventricles and sulci are compatible with the patient's age. Moderate remote infarct is noted in the left occipital lobe. Small remote cerebellar infarct is seen superiorly on the right Scattered white matter changes presumably ischemic. 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 There is slight upward convexity prominence of the pituitary gland is sagittal view without large mass seen. There is extensive mastoid fluid and middle ear fluid concerning for mastoiditis and otitis media on the left with mild to moderate right mastoid fluid also seen. Procedure Note Max Domínguez MD - 12/20/2020 Patient: SOMMER NINA Sex#: M #: 1975 Charanjit#: [id number] Location: [facility] 3 338-01 Ordering Provider: HOLLEY TERRAZAS Procedure Requested: [id number] MRI HEAD WO CONTRAST Reason for Exam: PERSISTENT HEADACHE Exam Ordered: 12/20/2020 1128 Begin exam date/time: 12/20/2020 1802 Exam Date/Time: 12/20/2020 1823 MRI OF THE BRAIN WITHOUT IV CONTRAST INDICATION: Headaches. TECHNIQUE: Multiplanar multisequence imaging obtained without contrast. COMPARISON: 12/13/2020. FINDINGS: Ventricles and sulci are compatible with the patient's age. Moderate remote infarct is noted in the left occipital lobe. Small remote cerebellar infarct is seen superiorly on the right Scattered white matter changes presumably ischemic. 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 There is slight upward convexity prominence of the pituitary gland is sagittal view without large mass seen. There is extensive mastoid fluid and middle ear fluid concerning for mastoiditis and otitis media on the left with mild to moderate right mastoid fluid also seen. 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 Mild to moderate mastoid fluid also seen in the right with moderate peripheral left maxillary mucosal thickening seen. Performing Organization Address City/[facility]/ZIP Code P miranda Number SWETHA * Erythrocyte Sedimentation Rate (12/20/2020 12:48 PM CDT) Only the most recent of 2 results within the time period is included. Sed Rate 125 (H) 0 - 12 mm/h [facility] Specimen Blood Narrative [facility] - 12/20/2020 1:39 PM CDT This order is a replacement of the rejected order with accession number [id number]. Performing Organization Address City/[facility]/ZIP Code P miranda Number [facility] [address] [place] [address] [place] [address] * Hepatitis B Surface Antigen (12/20/2020 3:01 AM CDT) Only the most recent of 2 results within the time period is included. Hepatitis B Non-reactive Non-reactive [facility] Specimen Blood Performing Organization Address City/[facility]/ZIP Code P miranda Number [address] [address] LABORATORIES [facility] [address] [place] [address] * Hepatitis B Surface Antibody Quant (12/20/2020 3:01 AM CDT) Hepatitis B <1.0 mIU/mL [facility] Surface Ab QT Comment: Hospital Lab In patients who have received the Hepatitis B vaccine, an antibody level of 10 mIU/mL or greater is indicative of immunity. Specimen Blood Performing Organization Address City/[facility]/ZIP Code P miranda Number [address] [address] LABORATORIES [facility] [address] [place] [address] * Hepatitis B CoreTotal Antibody (12/20/2020 3:01 AM CDT) Only the most recent of 2 results within the time period is included. Pathologist [facility] [place] Hepatitis B Non-reactive Non-reactive [facility] Total Ab [facility] Specimen Blood Performing Organization Address City/[facility] P miranda Number [address] [address] LABORATORIES [facility] [address] [place] [address] * Legionella Urine Antigen (12/19/2020 4:55 PM CDT) Pathologist [facility] Legionella Negative Negative [facility] Urine Antigen [facility] Specimen Urine Performing Organization Address City/[facility] P miranda Number [address] [address] LABORATORIES [facility] [address] [place] [address] * Differential, Auto (12/19/2020 3:30 AM CDT) % Neutrophils 65 45 - 78 % [facility] %Lymphocytes 17 15 - 47 % [facility] % Monocytes 14 (H) 0 - 12 % [facility] %Eosinophils 3 0 - 7 % [facility] %Basophils 1 0 - 2 % [facility] % Imm Grans 1 0 - 1 % [facility] # Granulocytes 5.39 1.70 - 6.80 TH/uL [facility] # Lymphocytes 1.37 1.00 - 3.30 TH/uL [facility] # Monocytes 1.15 (H) 0.20 - 0.90 TH/uL [facility] # Eosinophils 0.25 0.00 - 0.40 TH/uL [facility] # Basophils 0.04 0.00 - 0.10 TH/uL [facility] Specimen Blood Performing Organization Address City/State/ZIP Code P miranad Number [facility] [address] [place] [id number] [facility] [address] [place] [address] * XR Chest 2 views (PA and lateral) (12/18/2020 7:16 PM CDT) Modality Anatomical Region Laterality Computed Radiography Chest Specimen Impressions SWETHA - 12/18/2020 8:18 PM CDT Moderate acute pneumonia left lower lobe with small effusion. Mild parahilar atelectasis on the right. Double-lumen catheter placement from a jugular approach with the tip overlying the right atrium without pneumothorax on the right Narrative SWETHA - 12/18/2020 8:18 PM CDT Patient: SOMMER NINA Sex#: M #: 1975 Charanjit#: [id number] Location: [place] [address] Ordering Provider: JANIYA HSIEH Procedure Requested: [id number] XR CHEST 2 VIEWS (PA AND LATERAL) Reason for Exam: Shortness of breath, hypoxia Exam Ordered: 12/18/2020 1830 Begin exam date/time: 12/18/2020 1907 Exam Date/Time: 12/18/2020 1916 EXAM: CHEST STUDY, 2 VIEWS INDICATION: Shortness of breath and hypoxia COMPARISON: 12/13/2019 FINDINGS: Heart size is stable with ectasia and mild tortuosity of the aorta seen. Double-lumen catheter placed on the right with tip overlying the right atrium without pneumothorax seen. Moderate infiltrate atelectasis with small effusion compatible with pneumonia in the left lower lobe. Mild parahilar atelectasis is the right. No concerning bony abnormalities are seen. Procedure Note Max Domínguez MD - 12/18/2020 Patient: SOMMER NINA Sex#: M #: 1975 Charanjit#: [id number] Location: [facility] 3 338 Ordering Provider: JANIYA HSIEH Procedure Requested: [id number] XR CHEST 2 VIEWS (PA AND LATERAL) Reason for Exam: Shortness of breath, hypoxia Exam Ordered: 12/18/2020 1830 Begin exam date/time: 12/18/2020 1907 Exam Date/Time: 12/18/2020 1916 EXAM: CHEST STUDY, 2 VIEWS INDICATION: Shortness of breath and hypoxia COMPARISON: 12/13/2019 FINDINGS: Heart size is stable with ectasia and mild tortuosity of the aorta seen. Double-lumen catheter placed on the right with tip overlying the right atrium without pneumothorax seen. Moderate infiltrate atelectasis with small effusion compatible with pneumonia in the left lower lobe. Mild parahilar atelectasis is the right. No concerning bony abnormalities are seen. IMPRESSION Moderate acute pneumonia left lower lobe with small effusion. Mild parahilar atelectasis on the right. Double-lumen catheter placement from a jugular approach with the tip overlying the right atrium without pneumothorax on the right Performing Organization Address City/State/ZIP Code P miranda Number [facility] * IR Tunneled Dialysis catheter check (12/17/2020 11:55 AM CDT) Modality Anatomical Region Laterality X-Ray Angiography Chest, Neck, Vascular Specimen Impressions [facility] - 12/17/2020 3:50 PM CDT Successful repositioning of right IJ temporary hemodialysis catheter. Narrative [facility] - 12/17/2020 3:50 PM CDT Patient: SOMMER NINA Sex#: M #: 1975 Charanjit#: [id number] Location: [facility] 3 338-01 Ordering Provider: BRUCE REYNAGA Procedure Requested: [id number] IR TUNNELED DIALYSIS CATHETER CHECK Reason for Exam: Dialysis line is not working Exam Ordered: 12/17/2020 1038 Begin exam date/time: 12/17/2020 1154 Exam Date/Time: 12/17/2020 1155 DATE: 12/17/2020 11:56 AM EXAM: IR TUNNELED DIALYSIS CATHETER CHECK INDICATION: Dialysis line is not working Technique/findings: Following the patient's renal biopsy, the sterile dressing was removed from the patient's dialysis catheter. The catheter was pulled back approximately 2-3 cm and rotated 180 degrees. A new sterile dressing was applied. Catheter was flushed and locked. Hopefully this will help with flow problems. If this does not correct problems, catheter can be exchanged. Procedure Note Carlo Atkinson MD - 12/17/2020 Patient: SOMMER NINA Sex#: M #: 1975 Charanjit#: [id number] Location: [place] [address]- Ordering Provider: BRUCE REYNAGA Procedure Requested: [id number] IR TUNNELED DIALYSIS CATHETER CHECK Reason for Exam: Dialysis line is not working Exam Ordered: 12/17/2020 1038 Begin exam date/time: 12/17/2020 1154 Exam Date/Time: 12/17/2020 1155 DATE: 12/17/2020 11:56 AM EXAM: IR TUNNELED DIALYSIS CATHETER CHECK INDICATION: Dialysis line is not working Technique/findings: Following the patient's renal biopsy, the sterile dressing was removed from the patient's dialysis catheter. The catheter was pulled back approximately 2-3 cm and rotated 180 degrees. A new sterile dressing was applied. Catheter was flushed and locked. Hopefully this will help with flow problems. If this does not correct problems, catheter can be exchanged. IMPRESSION Successful repositioning of right IJ temporary hemodialysis catheter. Performing Organization Address City/State/ZIP Code P miranda Number [facility] * US Guided Biopsy Kidney (12/17/2020 11:53 AM CDT) Modality Anatomical Region Laterality Ultrasound, X-Ray Angiography Abdomen Specimen Addenda Addendum by Carlo Atkinson MD on 12/17/2020 5:04 PM CDT ++++++++++++++++++++++++++++++++++++++AD DENDUM+++++++++++++++++++++++++++++ Addendum: I was called by nursing report left flank pain and hematuria. I checked on the patient twice this afternoon. He appears to have moderate hematuria with dark reddish dilute urine. Nursing reported very small clots in the bottom of his urine bottle although I was unable to visualize these. The patient is able to urinate. The patient does not subjectively appear to be in distress. He does report moderate left flank pain. At this point, we will encourage fluid intake and monitor. Pain is not increasing per report. Hematuria is a fairly frequent occurrence following renal biopsy and tends to clear. If it is not clearing or pain is increasing, we may pursue additional imaging to assess for perinephric hematoma or for the amount of blood in the renal collecting system. If possible, we would like to avoid embolization. This was discussed with the patient and his questions were answered. Signed (Authenticated, Released) Date/Time 12/17/2020 170 ++++++++++++++++++++++++++++++++++++++++ +++++++++++++++++++++++++++++++++++ Impressions SHADY - 12/17/2020 1:12 PM CDT Successful ultrasound-guided core needle biopsy of the left kidney as described. Preprocedure: Risk, benefits, and alternatives were discussed in detail with the patient. He agreed to proceed. Procedural pause performed in the presence of all assisting personnel. Conscious sedation supplied by a nurse under my supervision (a trained professional in conscious sedation) for 20 minutes with appropriate physiologic monitoring including heart rate monitor, blood pressure monitor, oxygen saturation monitor, and continuous nursing assessment. Conscious sedation achieved with Versed and fentanyl. Narrative SHADY - 12/17/2020 1:12 PM CDT Patient: SOMMER NINA Sex#: M #: 1975 Charanjit#: [id number] Location: [facility] 3 338-01 Ordering Provider: HOLLY ALLEN Procedure Requested: [id number] US GUIDED BIOPSY KIDNEY Reason for Exam: nephrotic syndrome, VALERIE Exam Ordered: 12/13/2020 0803 Begin exam date/time: 12/17/2020 1027 Exam Date/Time: 12/17/2020 1153 DATE: 12/17/2020 11:53 AM EXAM: US GUIDED BIOPSY KIDNEY INDICATION: nephrotic syndrome, VALERIE Technique/findings: The region overlying the left kidney was prepared and draped in sterile technique. Local anesthetics applied with 1% lidocaine under direct ultrasound visualization. Following this, multiple 18-gauge core biopsies were obtained yielding visually satisfactory samples. Pathology was available for review. There are minimal glenohumeral despite samples including the peripheral most aspect of the cortex. This may be related to an global sclerotic process. After discussion with pathology, Doucette were removed. Hemostasis was achieved. There were no immediate complications. Procedure Note Carlo Atkinson MD - 12/17/2020 Patient: SOMMER NINA Sex#: M #: 1975 Charanjit#: [id number] Location: [facility] 3 338-01 Ordering Provider: HOLLY ALLEN Procedure Requested: [id number] US GUIDED BIOPSY KIDNEY Reason for Exam: nephrotic syndrome, VALERIE Exam Ordered: 12/13/2020 0803 Begin exam date/time: 12/17/2020 1027 Exam Date/Time: 12/17/2020 1153 DATE: 12/17/2020 11:53 AM EXAM: US GUIDED BIOPSY KIDNEY INDICATION: nephrotic syndrome, VALERIE Technique/findings: The region overlying the left kidney was prepared and draped in sterile technique. Local anesthetics applied with 1% lidocaine under direct ultrasound visualization. Following this, multiple 18-gauge core biopsies were obtained yielding visually satisfactory samples. Pathology was available for review. There are minimal glenohumeral despite samples including the peripheral most aspect of the cortex. This may be related to an global sclerotic process. After discussion with pathology, Doucette were removed. Hemostasis was achieved. There were no immediate complications. IMPRESSION Successful ultrasound-guided core needle biopsy of the left kidney as described. Preprocedure: Risk, benefits, and alternatives were discussed in detail with the patient. He agreed to proceed. Procedural pause performed in the presence of all assisting personnel. Conscious sedation supplied by a nurse under my supervision (a trained professional in conscious sedation) for 20 minutes with appropriate physiologic monitoring including heart rate monitor, blood pressure monitor, oxygen saturation monitor, and continuous nursing assessment. Conscious sedation achieved with Versed and fentanyl. Performing Organization Address City/State/ZIP Code P miranda Number [facility] * Tissue Pathology or Biopsy (12/17/2020 7:18 AM CDT) Specimen Left Kidney Narrative Performing Organization Address City/State/ZIP Code P miranda Number [facility] [address] [address] [address] * US Scrotal (12/13/2020 4:47 PM CDT) Modality Anatomical Region Laterality Ultrasound Pelvis Specimen Impressions SWETHA - 12/13/2020 4:49 PM CDT 1. 4 mm x 3 mm x 4 mm right epididymal cyst. 2. Otherwise, negative ultrasound of the scrotum and testicles bilaterally. Narrative [facility] - 12/13/2020 4:49 PM CDT Patient: SOMMER NINA Sex#: Donita #: 1975 Charanjit#: [id number] Location: [facility] Ordering Provider: AKIKO REICH Procedure Requested: [id number] US SCROTAL Reason for Exam: retroperitoneal lymphadenopathy Exam Ordered: 12/13/2020 1533 Begin exam date/time: 12/13/2020 1620 Exam Date/Time: 12/13/2020 1647 Procedure: Ultrasound of the scrotum and testicles bilaterally. Duplex Doppler and color-flow ultrasound is used. December 13, 2020. CLINICAL DATA: Scrotal pain. Retroperitoneal lymphadenopathy. FINDINGS: The testicles are normal in size, shape, position, and echotexture. They are normally homogenous and without focal lesion. The right testicle measures 4.5 cm x 3.1 cm x 2.1 cm. The left testicle measures 4.2 cm x 2.8 cm x 2.1 cm. There is symmetric and uniform arterial and venous blood flow to both testicles. There is a 4 mm x 3 mm x 4 mm right epididymal cyst. The epididymis is, otherwise, normal in appearance bilaterally, and is not hypervascular. There is no evidence of hydrocele on either side. There is no evidence of varicocele on either side. Procedure Note Lorenzo Arrieta MD - 12/13/2020 Patient: SOMMER NINA Sex#: M #: 1975 Charanjit#: [id number] Location: [facility] Ordering Provider: AKIKO REICH Procedure Requested: [id number] US SCROTAL Reason for Exam: retroperitoneal lymphadenopathy Exam Ordered: 12/13/2020 1533 Begin exam date/time: 12/13/2020 1620 Exam Date/Time: 12/13/2020 1647 Procedure: Ultrasound of the scrotum and testicles bilaterally. Duplex Doppler and color-flow ultrasound is used. December 13, 2020. CLINICAL DATA: Scrotal pain. Retroperitoneal lymphadenopathy. FINDINGS: The testicles are normal in size, shape, position, and echotexture. They are normally homogenous and without focal lesion. The right testicle measures 4.5 cm x 3.1 cm x 2.1 cm. The left testicle measures 4.2 cm x 2.8 cm x 2.1 cm. There is symmetric and uniform arterial and venous blood flow to both testicles. There is a 4 mm x 3 mm x 4 mm right epididymal cyst. The epididymis is, otherwise, normal in appearance bilaterally, and is not hypervascular. There is no evidence of hydrocele on either side. There is no evidence of varicocele on either side. IMPRESSION 1. 4 mm x 3 mm x 4 mm right epididymal c yst. 2. Otherwise, negative ultrasound of the scrotum and testicles bilaterally. Performing Organization Address City/State/ZIP Code P miranda Number SHADY * CT Head wo contrast (12/13/2020 3:41 PM CDT) Modality Anatomical Region Laterality Computed Tomography Head Specimen Impressions SWETHA - 12/13/2020 5:08 PM CDT Impression: 1. 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 2. There is some fluid in the left masto id air cells. One or more of the following dose reduction techniques were utilized: *Automated exposure control (AEC) *Adjustment of mA and/or kV according to patient size -Use of iterative reconstruction techniq ue -CT scan done according to brissa BURGOS ALA, RA/IMAGE GENTLY Narrative SWETHA - 12/13/2020 5:08 PM CDT Patient: SOMMER NINA Sex#: M #: 1975 Charanjit#: [id number] Location: [place] [address] Ordering Provider: BRUCE REYNAGA Procedure Requested: [id number] CT HEAD WO CONTRAST Reason for Exam: Refractory headache Exam Ordered: 12/13/2020 1520 Begin exam date/time: 12/13/2020 1531 Exam Date/Time: 12/13/2020 1541 Exam: CT head without contrast. Date: 12/13/2020 3:42 PM Indication: Refractory headaches Technique: 5 mm axial images of the head were obtained without contrast. 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 There is some fluid in the left mastoid air cells. There is mucosal thickening in the ethmoid air cells and sphenoid sinuses. Midline structures are central. The ventricles and sulci appear unremarkable. There is good mcwilliams/white matter differentiation. No mass effect is seen. No intracranial hemorrhage is detected. The osseous calvarium appears unremarkable. Procedure Note Buster Mehta MD - 12/13/2020 Patient: SOMMER NINA Sex#: M #: 1975 Charanjit#: [id number] Location: [facility] Ordering Provider: BRUCE REYNAGA Procedure Requested: [id number] CT HEAD WO CONTRAST Reason for Exam: Refractory headache Exam Ordered: 12/13/2020 1520 Begin exam date/time: 12/13/2020 1531 Exam Date/Time: 12/13/2020 1541 Exam: CT head without contrast. Date: 12/13/2020 3:42 PM Indication: Refractory headaches Technique: 5 mm axial images of the head were obtained without contrast. 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 There is some fluid in the left mastoid air cells. There is mucosal thickening in the ethmoid air cells and sphenoid sinuses. Midline structures are central. The ventricles and sulci appear unremarkable. There is good mcwilliams/white matter differentiation. No mass effect is seen. No intracranial hemorrhage is detected. The osseous calvarium appears unremarkable. IMPRESSION Impression: 1. 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 2. There is some fluid in the left masto id air cells. One or more of the following dose reduction techniques were utilized: *Automated exposure control (AEC) *Adjustment of mA and/or kV according to patient size -Use of iterative reconstruction techniq ue -CT scan done according to ALARA, or ALA RA/IMAGE GENTLY Performing Organization Address City/State/ZIP Code P miranda Number [place] * Clostridium Difficile Toxin by PCR (12/13/2020 3:30 PM CDT) C difficile Not Detected Not Detected [facility] Toxin by PCR [facility] Specimen Stool Performing Organization Address City/State/ZIP Code P miranda Number [facility] [address] [place] [address] [facility] [address] [place] [address] * IR Non Tunneled Dialysis catheter placement (12/13/2020 2:33 PM CDT) Modality Anatomical Region Laterality X-Ray Angiography Vascular, Chest, Neck Specimen Impressions [facility] - 12/13/2020 5:28 PM CDT Successful placement of right internal jugular triple-lumen temporary hemodialysis catheter. Narrative [facility] - 12/13/2020 5:28 PM CDT Patient: SOMMER NINA Sex#: M #: 1975 Charanjit#: [id number] Location: [facility] Ordering Provider: JANIYA HSIEH Procedure Requested: [id number] IR NON TUNNELED DIALYSIS CATHETER PLACEMENT Reason for Exam: Dialysis Exam Ordered: 12/13/2020 0300 Begin exam date/time: 12/13/2020 1433 Exam Date/Time: 12/13/2020 1433 EXAMINATION: IR NON TUNNELED DIALYSIS CATHETER PLACEMENT CLINICAL INFORMATION: Acute on chronic kidney disease. Needs dialysis. After informed consent was obtained, the patient was prepped and draped in a sterile manner. All elements of maximal sterile barrier technique followed. The right internal jugular vein was accessed using micropuncture technique under direct ultrasound guidance. After sequentially dilating the tract over a guidewire under fluoroscopic control, a 20 cm triple lumen temporary hemodialysis catheter was inserted with its tip at the proximal to mid right atrium. All ports freely aspirated and were flushed. The catheter was secured and a sterile dressing was applied. There were no immediate complications. Real-time ultrasound visualization of vascular needle entry and visualization of vessel patency was performed with permanent recording of ultrasound images. Fluoroscopic time 0.1 minutes. 1 image was obtained. Procedure Note Holly Allen MD - 12/13/2020 Patient: SOMMER NINA Sex#: M #: 1975 Charanjit#: [id number] Location: [facility] Ordering Provider: JANIYA HSIEH Procedure Requested: [id number] IR NON TUNNELED DIALYSIS CATHETER PLACEMENT Reason for Exam: Dialysis Exam Ordered: 12/13/2020 0300 Begin exam date/time: 12/13/2020 1433 Exam Date/Time: 12/13/20201432 EXAMINATION: IR NON TUNNELED DIALYSIS CATHETER PLACEMENT CLINICAL INFORMATION: Acute on chronic kidney disease. Needs dialysis. After informed consent was obtained, the patient was prepped and draped in a sterile manner. All elements of maximal sterile barrier technique followed. The right internal jugular vein was accessed using micropuncture technique under direct ultrasound guidance. After sequentially dilating the tract over a guidewire under fluoroscopic control, a 20 cm triple lumen temporary hemodialysis catheter was inserted with its tip at the proximal to mid right atrium. All ports freely aspirated and were flushed. The catheter was secured and a sterile dressing was applied. There were no immediate complications. Real-time ultrasound visualization of vascular needle entry and visualization of vessel patency was performed with permanent recording of ultrasound images. Fluoroscopic time 0.1 minutes. 1 image was obtained. IMPRESSION Successful placement of right internal jugular triple-lumen temporary hemodialysis catheter. Performing Organization Address City/State/ZIP Code P miranda Number [place] * COVID-19 [place] Admission PCR (non-PUI) (12/12/2020 8:01 PM CDT) Only the most recent of 2 results within the time period is included. Pathologist [facility] [place] SARS-CoV-2 PCR NegativeComment: This RT-PCR Negative [facility]'s test has been authorized by Hospital Lab the FDA under an Emergency Use Authorization (EUA) for use by authorized laboratories. Performed on the ASSURED INFORMATION SECURITY Aptima SARS-CoV-2 assay, which utilizes Boat Joiner Helper Mediated Amplification (TMA) technology Specimen NASOPHARYNGEAL SWAB Performing Organization Address City/State/ZIP Code P miranda Number [address] [address] LABORATORIES [facility] [address] [place] [address] * Culture, Blood (12/12/2020 7:50 PM CDT) Only the most recent of 2 results within the time period is included. [facility] Culture Result No Growth at 5 days [facility] Specimen Blood Performing Organization Address City/State/ZIP Code P miranda Number [facility] [address] [place] [address] LABORATORIES [facility] [address] [place] [address] * Electrocardiogram (ECG) (12/12/2020 6:53 PM CDT) QRSd 96 TRACEMASTER QT 356 TRACEMASTER QTC 482 TRACEMASTER ECGHR 110 TRACEMASTER ECGPR 160 TRACEMASTER Specimen Narrative [facility]EMASTER - 12/12/2020 6:56 PM CDT [facility] ED Test Date: 2020-12-12 Pat Name: SOMMER NINA Department: ERJ Room: [facility] 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 : 1975 Requested By: RAFA KRAMER Order Number: [id number] Reading MD: Measurements Intervals [place] Rate: 110 P: 58 VA: 160 QRS: 17 QRSD: 96 T: 75 QT: 356 QTc: 482 Interpretive Statements SINUS TACHYCARDIA BORDERLINE PROLONGED QT INTERVAL Procedure Note 12/12/2020 [facility] ED Test Date: 2020-12-12 Pat Name: SOMMER NINA Department: ER Room: [facility] 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: Male 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 Narrative [facility] - 12/12/2020 7:16 PM CDT Patient: SOMMER NINA Sex#: M #: 1975 Charanjit#: [id number] Location: [facility] Ordering Provider: RAFA KRAMER Procedure Requested: [id number] XR CHEST SINGLE VIEW FRONTAL Reason for Exam: SOA Exam Ordered: 12/12/2020 1803 Begin exam date/time: 12/12/20201824 Exam Date/Time: 12/12/2020 183 EXAMINATION: Portable AP chest radiograph CLINICAL INFORMATION: SOA; COMPARISON: None FINDINGS: Cardiomediastinal silhouette is within normal limits. Lung bases are clear. There is no evidence of focal infiltrate, effusion, or pneumothorax on this portable AP chest radiograph. Procedure Note Teddy Clay MD - 12/12/2020 Patient: SOMMER NINA Sex#: M #: 1975 Charanjit#: [id number] Location: [facility] Ordering Provider: RAFA KRAMER Procedure Requested: [id number] XR CHEST SINGLE VIEW FRONTAL Reason for Exam: SOA Exam Ordered: 12/12/2020 1803 Begin exam date/time: 12/12/20201824 Exam Date/Time: 12/12/2020 183 EXAMINATION: Portable AP chest radiograph CLINICAL INFORMATION: SOA; COMPARISON: None FINDINGS: Cardiomediastinal silhouette is within normal limits. Lung bases are clear. There is no evidence of focal infiltrate, effusion, or pneumothorax on this portable AP chest radiograph. IMPRESSION No evidence of acute cardiopulmonary disease. Performing Organization Address City/[facility]/ZIP Code P miranda Number SHAD[facility] * Troponin (12/12/2020 6:16 PM CDT) Troponin <0.01 0.00 - 0.03 ng/mL [facility] Comment: [facility] Troponin Value Interpretation 0.00 - 0.03 Healthy 0.04 - 0.12 Increased Cardiac Risk >0.12 Myocardial Infarction Troponin may not become elevated until 6 to 8 hours after onset of symptoms. Specimen Blood Performing Organization Address City/State/ZIP Code P miranda Number [facility] [id number] [place] [address] [facility] [address] [place] [id number] * NTproBNP (12/12/2020 6:16 PM CDT) Pathologist [facility] [place] NTproBNP 1,190 pg/mL [facility] Comment: [facility] NT-proBNP Reference Ranges: <50 yr <450 pg/mL 50-75 yr <900 pg/mL >75 yr <1800 pg/mL A cutoff value of 1200 pg/mL is recommended in patients 50 to 70 years of age with a GFR between 30 and 60. NT-proBNP is unreliable in patients with GFR <30. Specimen Blood Performing Organization Address [facility] P miranda Number [facility] [address] [place], [place] [phone] [facility] [place] [address] * Lipase (12/12/2020 6:16 PM CDT) [facility] Lipase 304 (H) 23 - 300 IU/L [facility] Specimen Blood Performing Organization Address [facility] P miranda Number [facility] [id number] [place], [place] [phone] [place] [address] * Lactate Venous WB - 0hr STAT (12/12/2020 6:16 PM CDT) [facility] Lactate Venous 0.8 0.0 - 2.0 mmol/L [facility] Specimen Blood Performing Organization Address [facility] P miranda Number [facility] [address] [place], [place] [phone] [facility] [address] [place] [address] * Comprehensive Metabolic Panel (12/12/2020 6:16 PM CDT) Only the most recent of 2 results within the time period is included. [facility] Sodium 140 133 - 147 MEQ/L [facility] Potassium 5.1 3.5 - 5.3 MEQ/L [facility] Chloride 119 (H) 96 - 112 MEQ/L [facility] Carbon Dioxide 18 (L) 20 - 32 MEQ/L [facility] Anion Gap 3 (L) 5 - [address] [facility]'s [facility] Calcium 7.7 (L) 8.4 - 10.5 mg/dL [facility] Glucose 135 (H) 70 - 100 mg/dL [facility] Protein Total 6.0 6.0 - 8.2 g/dL [facility] Serum [facility] Albumin 3.0 (L) 3.5 - 5.0 g/dL [facility] Alkaline 74 42 - 140 IU/L [facility]'s Phosphatase [facility] Alanine 20 0 - 49 IU/L [facility] Aminotransferas [facility] e Aspartate 21 15 - 46 IU/L [facility] Aminotransferas [facility] e Bilirubin Total 0.2 0.2 - 1.3 mg/dL [facility] Blood Urea 48 (H) 7 - 26 mg/dL [facility] Nitrogen [facility] Creatinine 4.4 (H) 0.6 - 1.3 mg/dL [facility] eGFR Male AA 18 (L) 60 - 200 [facility] mL/min/1.73sq m [facility] eGFR Male 15 (L) 60 - 200 [facility] Non-AA mL/min/1.73sq m [facility] Specimen Blood Performing Organization Address City/[facility] P miranda Number [facility] [address] [place] [address] [facility]'s [facility] [address] [place] [address] * Urinalysis Microscopic Only (12/12/2020 5:47 PM CDT) Only the most recent of 3 results within the time period is included. Microscopic RBC 0-5 0 - 5 /[facility] Microscopic WBC >40 (A) 0 - 5 /hpf [facility] Urine [facility] Epithelial Absent Absent [facility] Hyaline Cast [facility] Bacteria Small (A) [facility] Specimen Clean Voided Urine Performing Organization Address City/[facility] Code P miranda Number [facility] [address] [place] [address] [facility] [address] [place] [address] * Urinalysis Reflex (12/12/2020 5:47 PM CDT) Appearance, Yellow [facility] Urine [facility] Glucose Urine 250 (A) Negative mg/dL [facility] Bilirubin Urine Negative Negative [facility] Ketones Urine Negative Negative mg/dL [facility] Specific 1.025 1.001 - 1.030 [facility], UA [facility] Hemoglobin Small (A) Negative [facility] Urine [facility] PH Urine 6.0 5.0 - 8.0 [facility] Protein Urine >300 (A) Negative mg/dL [facility] Qual [facility] Urobilinogen Negative Negative EU/dL [facility] Urine [facility] Nitrite Urine Positive (A)Comment: Culture Negative [facility] Ordered [facility] Leukocyte Positive (A) Negative [facility] Esterase [facility] Specimen Clean Voided Urine Performing Organization Address City/State/ZIP Code P miranda Number [facility] [address] [place] [address] [facility] [address] [place] [address] * Culture, Urine (12/12/2020 5:47 PM CDT) Only the most recent of 2 results within the time period is included. Pathologist [facility] Isolate 1 >100,000 Cfu/ml (A) [facility] Isolate 1 Methicillin Sensitive [facility] Staphylococcus aureus (A) Hospital [facility] Specimen Clean Voided Urine Antibiotic Method Susceptibility Organism OXACILLIN 0.5: Sensitive Methicillin sensitive Staphylococcus aureus LINEZOLID 2: Sensitive Methicillin sensitive Staphylococcus aureus NITROFURANTOIN <=16: Sensitive Methicillin sensitive Staphylococcus aureus SEPTRA/BACTRIM <=10: Sensitive Methicillin sensitive Staphylococcus aureus VANCOMYCIN 1.0: Sensitive Methicillin sensitive Staphylococcus aureus Performing Organization Address City/State/ZIP Code P miranda Number [address] [address] LABORATORIES [facility] [address] [place] [address] * Protein Electrophoresis Urine (11/28/2020 1:15 PM CDT) Volume: 3,925 mL [facility] Albumin 52 (H) 0 - 50 % [facility] Total Globulins 48 (L) 60 - 67 % [facility] Pathologist Reviewed by Steve Rosales [facility] Felicitas Mojica MBA.Comment: No Hospital Lab monoclonal protein identified. Creatinine 29.1 mg/dL [facility] Urine Random [facility] Protein Urine 467.0 mg/dL [facility] Quantitative [facility] Protein Urine 18,330 (H) 42 - 225 mg/24h [facility] 24 [facility] Protein/Creat 16,048 (H) 0 - 150 mg/g [facility] Specimen Urine Performing Organization Address City/State/ZIP Code P miranda Number [address] [address] LABORATORIES [facility] [address] [place] [address] * US Duplex Renal complete (11/28/2020 7:33 AM CDT) Modality Anatomical Region Laterality Ultrasound Abdomen, Pelvis Specimen Impressions [facility] - 11/28/2020 8:09 AM CDT Impression: No sonographic findings to suggest renal artery stenosis or vascular pathology such as aneurysm. Please see report of ultrasound of the kidneys of October 20162020 for further discussion. Narrative [facility] - 11/28/2020 8:09 AM CDT Patient: SOMMER NINA Sex#: M #: 1975 Charanjit#: [id number] Location: [address]-[address] Ordering Provider: JANIYA HSIEH Procedure Requested: [id number] US DUPLEX RENAL COMPLETE Reason for Exam: Elevated creat Exam Ordered: 11/28/2020 0000 Begin exam date/time: 11/28/2020 0641 Exam Date/Time: 11/28/2020 0733 Indication: Acute kidney injury. CTA the stage III highly likely with progression disease stage IV-V. Etiology of acute kidney injury and pain. Exam: Renal ultrasound with duplex. No prior studies for comparison. Findings: Both kidneys are negative for focal mass, shadowing stone, or hydronephrosis measuring 11.7 cm in length on the right and 13.3 cm in length on the left. Neither ureter is visualized. The bladder is decompressed. Normal caliber upper abdominal aorta with a peak systolic velocity of 94 cm/sec. Peak systolic velocity at the renal artery origins is 56 cm/sec on the right and 57 cm/sec on the left. Peak systolic velocities are 33 cm/sec and 88 cm/sec in the distal right and left renal arteries respectively. Early systolic peaks are present and diastolic flow is preserved. Renal artery/aortic ratios are normal bilaterally. The renal veins are patent at the duyen bilaterally. Renal artery/aorta ratio: Right = 0.6. Left = 0.8. Resistive indices in the segmental arteries of both kidneys is approximately 0.7. Procedure Note Kun Galarza MD - 11/28/2020 Patient: SOMMER NINA Sex#: M #: 1975 Charanjit#: [id number] Location: [facility] 219-01 Ordering Provider: JANIYA HSIEH Procedure Requested: [id number] US DUPLEX RENAL COMPLETE Reason for Exam: Elevated creat Exam Ordered: 11/28/2020 0000 Begin exam date/time: 11/28/2020 0641 Exam Date/Time: 11/28/2020 0733 Indication: Acute kidney injury. CTA the stage III highly likely with progression disease stage IV-V. Etiology of acute kidney injury and pain. Exam: Renal ultrasound with duplex. No prior studies for comparison. Findings: Both kidneys are negative for focal mass, shadowing stone, or hydronephrosis measuring 11.7 cm in length on the right and 13.3 cm in length on the left. Neither ureter is visualized. The bladder is decompressed. Normal caliber upper abdominal aorta with a peak systolic velocity of 94 cm/sec. Peak systolic velocity at the renal artery origins is 56 cm/sec on the right and 57 cm/sec on the left. Peak systolic velocities are 33 cm/sec and 88 cm/sec in the distal right and left renal arteries respectively. Early systolic peaks are present and diastolic flow is preserved. Renal artery/aortic ratios are normal bilaterally. The renal veins are patent at the duyen bilaterally. Renal artery/aorta ratio: Right = 0.6. Left = 0.8. Resistive indices in the segmental arteries of both kidneys is approximately 0.7. IMPRESSION Impression: No sonographic findings to suggest renal artery stenosis or vascular pathology such as aneurysm. Please see report of ultrasound of the kidneys of October 20162020 for further discussion. Performing Organization Address [facility] P miranda Number SHADY * APTT (11/28/2020 2:38 AM CDT) Pathologist [facility] [place] APTT 33 22 - 34 sec [facility] Specimen Blood Performing Organization Address [facility] P miranda Number [facility] [address] [place], [place] [phone] [facility] [address] [place] [address] * Prothrombin Time/INR (11/28/2020 2:38 AM CDT) Pathologist [facility] [place] Protime 11.7 11.4 - 15.0 sec [facility] INR 0.9 0.8 - 1.2 [facility] Specimen Blood Performing Organization Address [facility] P miranda Number [facility] [address] [place], [place] [phone] [facility] [address] [place] [address] * Urinalysis (includes microscopic review, if indicated) (11/27/2020 11:39 AM CDT) Only the most recent of 2 results within the time period is included. Appearance, Yellow [facility] Glucose Urine 250 (A) Negative mg/dL [facility] Bilirubin Urine Negative Negative [facility] Ketones Urine Negative Negative mg/dL [facility] Specific 1.020 1.001 - 1.030 [facility] Hemoglobin Small (A) Negative [facility] PH Urine 6.0 5.0 - 8.0 [facility] Protein Urine >300 (A) Negative mg/dL [facility] Urobilinogen Negative Negative EU/dL [facility] [place] Urine [facility] Nitrite Urine Negative Negative [facility] Leukocyte Positive (A) Negative [facility] Esterase [facility] Specimen Clean Voided Urine Performing Organization Address City/State/ZIP Code P miranda Number [facility] [address] [place] [address] [facility] [address] [place] [address] * Antiphospholipid Panel II (11/27/2020 10:44 AM CDT) Protime 12.7 11.4 - 15.0 sec [facility] INR 1.0 0.8 - 1.2 [facility] APTT 31 22 - 34 sec [facility] Specimen Blood Performing Organization Address City/[facility] Code P miranda Number [address] [address] LABORATORIES [facility] [address] [place] [address] * Hexogonal Phase Phospholipid APL Testing (11/27/2020 10:44 AM CDT) Hexagonal Phase Negative Negative [facility] Specimen Blood Performing Organization Address City/[facility] Code P miranda Number [address] [address] LABORATORIES [facility] [address] [place] [address] * DRVVT APL Testing (11/27/2020 10:44 AM CDT) DRVVT Positive (A) Negative [facility] [place] Comment: Hospital Lab In the appropriate clinical setting, diagnosis of lupus anticoagulant is supported by a positive result for DRVVT or Hexagonal Phase Phospholipid assay on two or more occasions at least twelve weeks apart. Anticoagulant therapy may interfere with lupus anticoagulant assays. Specimen Blood Performing Organization Address City/[facility]/ZIP Code P miranda Number [address] [address] LABORATORIES [facility] [address] [place] [address] * Hkku-1-Tcnviurvsbua IgG and IgM (11/27/2020 10:44 AM CDT) B2 GLYCOPROTEIN 7 0 - 20 [facility] (IGG)AB [facility] B2 GLYCOPROTEIN <1 0 - 20 [facility] (IGM)AB [facility] Specimen Blood Performing Organization Address [facility] P miranda Number [facility] [address] [place] [address] LABORATORIES [facility] [address] [place] [address] * Anticardiolipin Antibodies (11/27/2020 10:44 AM CDT) Anticardiolipin <3 0 - 20 [facility] IgG [facility] Anticardiolipin 1 0 - 20 [facility] IgM [facility] Specimen Blood Performing Organization Address [facility] P miranda Number [address] [address] LABORATORIES [facility] [address] [place] [address] * ECHO CONGENITAL COMPLETE W DOPPLER AND COLOR FLOW (11/27/2020 9:22 AM CDT) Ejection 53 % PROSOLV Fraction Modality Anatomical Region Laterality Ultrasound Chest Specimen Impressions PROSOLV - 11/27/2020 11:07 AM CDT 1. Lower limits normal left ventricular systolic function, with a calculated ejection fraction by 3D echo of 53%. 2. Moderate to severe concentric left ventricular hypertrophy. 3. Abnormal global longitudinal myocardial strain. -14 (Epiq) 4. No significant valvular abnormalities. 5. No previous study available for comparison. Yao Gomez MD (Electronically Signed) Final Date: 27 November 2020 11:06 Narrative PROSOLV - 11/27/2020 11:07 AM CDT ECHOCARDIOGRAM REPORT [facility] Name: SOMMER NINA Date: 11/27/2020 08:47 Chart #: [id number] : 1975 Location: [facility] Sono: kat Age: 45 Gender: M Referring: JANIYA HSIEH MD Room #: - Fellow: Indication:VALERIE Procedure: ECHO CONGENITAL COMPLETE WITH DOPPLER AND COLOR FLOW BP: 163 / 97 HR: 78 Ht: 70 Wt: 189 BSA 2.1 : 2D ECHO MEASUREMENTS LV Diastolic Diameter Bas 5.1 cm IVS Diastolic Thickness 1.8 cm LV Systolic Diameter Base 3.5 cm LVPW Diastolic Thickness 1.6 cm LA Systolic Diameter LX 4.3 cm Ascending Aorta Diameter 3.5 cm MITRAL VALVE DOPPLER Mitral E Point Velocity 54.8 cm/s Mitral E to A Ratio 0.59 Mitral A Point Velocity 93 cm/s MV Deceleration Time 239 ms WALL SEGMENT ANALYSIS: ROUTINE LVSI : 1 %FM : 100 LAD : 1 LCX : 1 RCA : 1 FINDINGS LV Ejection Fraction: 53 Lower limits normal left ventricular systolic function, with a calculated ejection fraction by 3D echo of 53%. Moderate to severe concentric left ventricular hypertrophy. Abnormal global longitudinal myocardial strain. -14 (Epiq) Normal wall motion. Normal left ventricular dimensions. Normal right ventricular size and systolic function. Normal right and left atrial size. LA volume index= 26 ml/m2. Normal diastolic function. Normal aortic valve without regurgitation. Normal mitral valve with trivial regurgitation. Normal pulmonic valve with trivial regurgitation. Normal tricuspid valve with trivial regurgitation. Unable to accurately estimate pulmonary artery pressure. No pericardial effusion. IVC is responsive to inspiration indicating normal RA pressure. Normal dimensions of the ascending aorta. No intracardiac masses or thrombi. Procedure Note Yao Gomez MD - 11/27/2020 ECHOCARDIOGRAM REPORT [facility] Name: SOMMER NINA Date: 11/27/2020 08:47 Chart #: [id number] : 1975 Location: [facility] BRITT stephens Age: 45 Gender: M Referring: JANIYA HSIEH MD Room #: 219- Fellow: Indication:VALERIE Procedure: ECHO CONGENITAL COMPLETE WITH DOPPLER AND COLOR FLOW BP: 163 / 97 HR: 78 Ht: 70 Wt: 189 BSA 2.1 : 2D ECHO MEASUREMENTS LV Diastolic Diameter Bas 5.1 cm IVS Diastolic Thickness 1.8 cm LV Systolic Diameter Base 3.5 cm LVPW Diastolic Thickness 1.6 cm LA Systolic Diameter LX 4.3 cm Ascending Aorta Diameter 3.5 cm MITRAL VALVE DOPPLER Mitral E Point Velocity 54.8 cm/s Mitral E to A Ratio 0.59 Mitral A Point Velocity 93 cm/s MV Deceleration Time 239 ms WALL SEGMENT ANALYSIS: ROUTINE LVSI : 1 %FM : 100 LAD : 1 LCX : 1 RCA : 1 FINDINGS LV Ejection Fraction: 53 Lower limits normal left ventricular systolic function, with a calculated ejection fraction by 3D echo of 53%. Moderate to severe concentric left ventricular hypertrophy. Abnormal global longitudinal myocardial strain. -14 (Epiq) Normal wall motion. Normal left ventricular dimensions. Normal right ventricular size and systolic function. Normal right and left atrial size. LA volume index= 26 ml/m2. Normal diastolic function. Normal aortic valve without regurgitation. Normal mitral valve with trivial regurgitation. Normal pulmonic valve with trivial regurgitation. Normal tricuspid valve with trivial regurgitation. Unable to accurately estimate pulmonary artery pressure. No pericardial effusion. IVC is responsive to inspiration indicating normal RA pressure. Normal dimensions of the ascending aorta. No intracardiac masses or thrombi. IMPRESSION 1. Lower limits normal left ventricular systolic function, with a calculated ejection fraction by 3D echo of 53%. 2. Moderate to severe concentric left ventricular hypertrophy. 3. Abnormal global longitudinal myocardial strain. -14 (Epiq) 4. No significant valvular abnormalities. 5. No previous study available for comparison. Yao Gomez MD (Electronically Signed) Final Date: 27 November 2020 11:06 Performing Organization Address City/State/ZIP Code P miranda Number PROSOLV * [facility] Laboratory Testing (11/27/2020 3:19 AM CDT) Pathologist [facility] [place] Ref Lab Test Name: ZNT8 Antibodies [facility] Miscellaneous Specimen Source: [facility] Lab Result: <15 U/mL Reference Range: All Ages: <15 Negative >or=15 Positive Test Performed at [facility] [place] [id number] [facility] [address] [address] [place] [address] Specimen Blood Performing Organization Address City/[facility]/ZIP Code P miranda Number [address] [id number] LABORATORIES [facility] [address] [place] [address] * PEGGY-65 Autoantibody (11/27/2020 3:19 AM CDT) [facility] PEGGY-65 <5.0 0.0 - 5.0 U/mL [facility] Autoantibody Comment: Performed at: [address] [place] [id number] [place] Operator: Jeanie Clements MD, Phone: [phone] Specimen Blood Performing Organization Address City/[facility]/ZIP Code P miranda Number [facility] [id number] [place] [address] 11 [facility] Interface [id number] [address] * Insulin Ab (11/27/2020 3:19 AM CDT) [facility] Insulin Ab <5.0 uU/mL [facility] Comment: This test is also known as insulin autoantibody or IAA. This test was developed and its performance characteristics determined by [facility]. It has not been cleared or approved by the Food and Drug Administration. Reference Range: <5.0 Negative > or = 5.0 Positive Performed at: [facility] [address] [place] [id number] [place] Operator: Steve Thomas MD, Phone: [phone] Specimen Blood Performing Organization Address [facility] P miranda Number [facility] [address] [place] [address] [facility] [id number] [place] [address] * IA-2 Autoantibodies (11/27/2020 3:19 AM CDT) [facility] IA-2 <7.5 U/mL [facility] Autoantibodies Comment: Reference Range: <7.5 Negative > or = 7.5 Positive Performed at: [facility] [address] [place] [id number] [place] Operator: Steve Thomas MD, Phone: [phone] Specimen Blood Performing Organization Address City/[facility] P miranda Number [facility] [id number] [place] [address] 11 [facility] [id number] [address] * C-Peptide (11/27/2020 3:19 AM CDT) [facility] C-Peptide 3.1 1.1 - 4.4 ng/mL [facility] Comment: C-Peptide reference interval is for fasting patients. Performed at: - [address] [id number] [place] Operator: Jeanie Clements MD, Phone: [phone] Specimen Blood Performing Organization Address City/State/ZIP Code [facility] Number [facility] [address] [place] [address] [facility] [id number] [place] [address] [place] [address] * CT Abdomen Pelvis wo contrast (11/26/2020 4:33 PM CDT) Modality Anatomical Region Laterality Computed Tomography Abdomen, Pelvis Specimen Impressions SHADY - 11/26/2020 5:08 PM CDT 1. Moderate bladder wall thickening is nonspecific. Correlate clinically as to possible cystitis. 2. Tiny nonobstructing calculus in the l ower pole of the left kidney. Otherwise normal kidneys bilaterally. 3. Mild retroperitoneal aortic lymphaden opathy. These are nonspecific and could be reactive.. Narrative SWETHA - 11/26/2020 5:08 PM CDT Patient: SOMMER NINA Sex#: M #: [id number] Charanjit#: [id number] Location: [address] [address]-01 Ordering Provider: JANIYA HSIEH Procedure Requested: [id number] CT ABDOMEN PELVIS WO CONTRAST Reason for Exam: Hydronephrosis on US Exam Ordered: 11/26/2020 1518 Begin exam date/time: 11/26/2020 1623 Exam Date/Time: 11/26/[address] ABDOMEN PELVIS WO CONTRAST INDICATION: Pelvic pain, bladder thickening, evaluate for hydronephrosis EXAM: Noncontrast CT of the abdomen and pelvis. Coronal and sagittal reformatted images were performed. CT radiation dose reduction techniques were utilized. COMPARISON: Renal ultrasound performed earlier today. FINDINGS: No free air, free fluid, or fluid collection. Lower chest: The visualized lower lungs are aerated. No pleural or pericardial effusion. ABDOMEN: Liver: The noncontrast liver is homogeneous in attenuation. Gallbladder and biliary: Gallbladder is partially contracted. No radiopaque stones. Normal caliber bile ducts. Spleen: Spleen normal in size. Accessory splenules medial and anterior to the spleen. Pancreas: The noncontrast pancreas is homogeneous in attenuation without peripancreatic inflammatory changes. Adrenal glands: Normal adrenal glands. Kidneys and ureters: Tiny nonobstructing calculus in the lower pole of the left kidney measures 2 mm. Renal parenchyma otherwise normal in thickness. No significant hydronephrosis. GI tract: The stomach is decompressed and poorly evaluated. Normal caliber small bowel and colon. Prior appendectomy. Vascular structures: Mild aortoiliac atherosclerotic calcification without aneurysm. Lymph nodes: There are some mildly prominent periaortic retroperitoneal lymph nodes measuring up to 2.0 x 1.3 cm. No pelvic lymphadenopathy. PELVIS: Genitourinary system: Moderate diffuse bladder wall thickening without focal mass. Prostate and seminal vesicles appear normal. SKELETAL STRUCTURES AND SOFT TISSUES: No fracture or destructive lesion in the visualized skeleton. Procedure Note Mike Griffin MD - 11/26/2020 Patient: SOMMER NINA Sex#: M #: 1975 Charanjit#: [id number] Location: [address] 219-01 Ordering Provider: JANIYA HSIEH Procedure Requested: [id number] CT ABDOMEN PELVIS WO CONTRAST Reason for Exam: Hydronephrosis on US Exam Ordered: 11/26/2020 1518 Begin exam date/time: 11/26/2020 1623 Exam Date/Time: 11/26/[address] ABDOMEN PELVIS WO CONTRAST INDICATION: Pelvic pain, bladder thickening, evaluate for hydronephrosis EXAM: Noncontrast CT of the abdomen and pelvis. Coronal and sagittal reformatted images were performed. CT radiation dose reduction techniques were utilized. COMPARISON: Renal ultrasound performed earlier today. FINDINGS: No free air, free fluid, or fluid collection. Lower chest: The visualized lower lungs are aerated. No pleural or pericardial effusion. ABDOMEN: Liver: The noncontrast liver is homogeneous in attenuation. Gallbladder and biliary: Gallbladder is partially contracted. No radiopaque stones. Normal caliber bile ducts. Spleen: Spleen normal in size. Accessory splenules medial and anterior to the spleen. Pancreas: The noncontrast pancreas is homogeneous in attenuation without peripancreatic inflammatory changes. Adrenal glands: Normal adrenal glands. Kidneys and ureters: Tiny nonobstructing calculus in the lower pole of the left kidney measures 2 mm. Renal parenchyma otherwise normal in thickness. No significant hydronephrosis. GI tract: The stomach is decompressed and poorly evaluated. Normal caliber small bowel and colon. Prior appendectomy. Vascular structures: Mild aortoiliac atherosclerotic calcification without aneurysm. Lymph nodes: There are some mildly prominent periaortic retroperitoneal lymph nodes measuring up to 2.0 x 1.3 cm. No pelvic lymphadenopathy. PELVIS: Genitourinary system: Moderate diffuse bladder wall thickening without focal mass. Prostate and seminal vesicles appear normal. SKELETAL STRUCTURES AND SOFT TISSUES: No fracture or destructive lesion in the visualized skeleton. IMPRESSION 1. Moderate bladder wall thickening is n onspecific. Correlate clinically as to possible cystitis. 2. Tiny nonobstructing calculus in the l ower pole of the left kidney. Otherwise normal kidneys bilaterally. 3. Mild retroperitoneal aortic lymphaden opathy. These are nonspecific and could be reactive.. Performing Organization Address [facility] Code P miranda Number SHADY * Antinuclear Antibody IFA (AILYN) (11/26/2020 4:02 PM CDT) AILYN Qualitative NegativeComment: [facility] uses the [facility] HEp-2 indirect immunofluorescent assay for screening and semi-quantitative determination of anti-nuclear antibodies (AILYN) in human serum. Specimen Blood Performing Organization Address [facility]/ZIP Code P miranda Number [address] [address] LABORATORIES [facility] [address] [place] [address] * Vitamin B12 (11/26/2020 4:02 PM CDT) VITAMIN B12 633 239 - 931 pg/mL [facility] Specimen Blood Performing Organization Address [facility]/ZIP Code P miranda Number [address] [address] LABORATORIES [facility] [address] [place] [address] * Salicylate (11/26/2020 4:02 PM CDT) Salicylate <1 0 - 30 mg/dL [facility] Specimen Blood Performing Organization Address [facility] Code P miranda Number [facility] [address] [place] [address] [facility] [address] [place] [address] * Protein Electrophoresis Serum (11/26/2020 4:02 PM CDT) Albumin 2.3 (L) 3.3 - 5.0 g/dL [facility] Alpha 1 0.3 0.1 - 0.3 g/dL [facility] Alpha 2 0.9 0.5 - 1.0 g/dL [facility] Beta 1.0 0.7 - 1.5 g/dL [facility] Gamma 1.0 0.5 - 1.7 g/dL [facility] A/G Ratio 0.7 [facility] Pathologist Reviewed by Steve Rosales [facility] Felicitas Mojica MBA.Comment: Hospital Lab Hypoalbuminemia. Protein Total 5.4 (L) 6.0 - 8.2 g/dL [facility] Specimen Blood Performing Organization Address City/[facility]/ZIP Code P miranda Number [address] [address] LABORATORIES [facility] [address] [place] [address] * Hepatitis C Antibody (11/26/2020 4:02 PM CDT) Hepatitis C Ab Non-reactive Non-reactive [facility] Specimen Blood Performing Organization Address City/[facility]/ZIP Code P miranda Number [address] [address] LABORATORIES [facility] [address] [place] [address] * Hepatitis B Surface Antibody (11/26/2020 4:02 PM CDT) Hepatitis B Non-reactive Non-reactive [facility] Lab Specimen Blood Performing Organization Address City/[facility]/ZIP Code P miranda Number [address] [address] LABORATORIES [facility] [address] [place] [address] * C4 Complement (11/26/2020 4:02 PM CDT) C4 Complement 27 14 - 44 mg/dL [facility] Specimen Blood Performing Organization Address City/State/ZIP Code P miranda Number [facility] [address] [place] [address] LABORATORIES [facility] [address] [place] [address] * C3 Complement (11/26/2020 4:02 PM CDT) C3 Complement 86 83 - 172 mg/dL [facility] Specimen Blood Performing Organization Address City/[facility]/ZIP Code P miranda Number [facility] [address] [place] [address] LABORATORIES [facility] [address] [place] [address] * Protein Urine Random (11/26/2020 11:30 AM CDT) Creatinine 122.4 mg/dL [facility] Protein Urine 1,531.0 mg/dL [facility] Protein/Creat 12,508 (H) 0 - 150 mg/g [facility] Specimen Urine Performing Organization Address City/[facility] P miranda Number [facility] [address] [place] [address] [facility] [id number] [place] [address] * Creatinine Urine Random Quant (11/26/2020 11:30 AM CDT) Creatinine 122.4 mg/dL [facility] Specimen Urine Performing Organization Address [facility] P miranda Number [facility] [address] [place] [address] [facility] [address] [place] [address] * US Renal complete (11/26/2020 11:09 AM CDT) Modality Anatomical Region Laterality Ultrasound Abdomen Specimen Impressions ABIGAILJUAN C - 11/26/2020 11:22 AM CDT 1. There is a benign-appearing 1.3 cm le ft renal cyst. 2. No hydronephrosis. 3. Abnormal urinary bladder with wall th ickening and increased vascularity. This is nonspecific. Cystitis is not excluded. Narrative SHADY - 11/26/2020 11:22 AM CDT Patient: SOMMER NINA Sex#: M #: 1975 Charanjit#: [id number] Location: [facility] 219-01 Ordering Provider: DEDRA DALY Procedure Requested: [id number] US RENAL COMPLETE Reason for Exam: rule out obstruction Exam Ordered: 11/26/2020 1020 Begin exam date/time: 11/26/2020 1036 Exam Date/Time: 11/26/2020 1109 US RENAL COMPLETE Indication: rule out obstruction, pelvic pain Exam Date: 11/26/2020 11:10 AM Findings: The right kidney measures 11 cm in length. The left kidney measures 11.6 cm in length. There is a slightly dilated right renal pelvis. No hydronephrosis. There is a benign-appearing 1.3 cm left renal cyst. The visualized aorta and IVC appear unremarkable. The urinary bladder wall is thickened and slightly irregular with increased vascularity. This is nonspecific. Cystitis is not excluded. Procedure Note Buster Mehta MD - 11/26/2020 Patient: SOMMER NINA Sex#: M #: 1975 Charanjit#: [id number] Location: [facility] 2[address] 219-01 Ordering Provider: DEDRA DALY Procedure Requested: [id number] US RENAL COMPLETE Reason for Exam: rule out obstruction Exam Ordered: 11/26/2020 1020 Begin exam date/time: 11/26/2020 1036 Exam Date/Time: 11/26/2020 1109 US RENAL COMPLETE Indication: rule out obstruction, pelvic pain Exam Date: 11/26/2020 11:10 AM Findings: The right kidney measures 11 cm in length. The left kidney measures 11.6 cm in length. There is a slightly dilated right renal pelvis. No hydronephrosis. There is a benign-appearing 1.3 cm left renal cyst. The visualized aorta and IVC appear unremarkable. The urinary bladder wall is thickened and slightly irregular with increased vascularity. This is nonspecific. Cystitis is not excluded. IMPRESSION 1. There is a benign-appearing 1.3 cm le ft renal cyst. 2. No hydronephrosis. 3. Abnormal urinary bladder with wall th ickening and increased vascularity. This is nonspecific. Cystitis is not excluded. Performing Organization Address City/State/ZIP Code P miranda Number SHADY * Thyroid [place] (11/26/2020 3:38 AM CDT) Thyroid 1.55 0.47 - 4.68 uIU/mL [facility] Hormone Specimen Blood Performing Organization Address City/[facility] Code P miranda Number [facility] [facility] [id number] [id number] [facility] [address] [place] [address] * Hemoglobin A1C (11/26/2020 3:38 AM CDT) Hemoglobin A1C 12.4 (H) 4.0 - 5.6 % [facility] [place] Comment: Hospital Lab Non-diabetic 4.0 - 5.6 % Prediabetes 5.7 - 6.4 % Diabetes >= 6.5 % Specimen Blood Performing Organization Address City/[facility] Code P miranda Number [facility] [address] [place] [address] LABORATORIES [facility] [address] [place] [id number] from Last 3 Months Insurance Type Payer Benefit Subscriber ID Effective Phone Address Plan / Dates Group COMMERCIAL-NONCONTRACTED MISC [id number] 2020-[address] COMMERCIAL resent [id number] [place] [address] Sommer Nina Personal/F Self 1975 [address] [facility] [place] ceballos [facility] [place] [address] Advance Directives For more information, please contact: [phone] Patient Rn Mds Explanation Type Date Recorded Health Care Directive Date Inactivated Comments Code Status Date Activated Full Code 12/12/2020 7:47 PM 12/12/2020 7:47 PM Full Code 12/12/2020 7:11 PM 12/12/2020 5:20 PM Full Code 11/25/2020 9:50 PM Care Teams Start Date End Date Photography Manager Relationship Specialty 11/25/20 Carmelita Avila APRN PCP - General Nurse [address] [place] [address] Practitioner [place], [place] [address]
--- OUTSIDE RECORDS SUMMARY | 2021-02-22 09:45 | XMS REPORT | Clinical Summary ---
Author Author [facility] Organization [facility] Address Unknown Phone Unavailable Care Team Providers Care Bindery Assistant Name Role Phone Lo Wilson MD Unavailable Ghada Haywood Unavailable Unavailable Carmelita Avila NP PCP Source Comments Some departments are not documenting in the electronic medical record. If you d o not see the information that you expected, contact Release of Information in [facility] [employer] Information Management department at [phone] for further assistan ce in locating additional records.[facility] Allergies Comments Active Allergy Reactions Severity Noted [...] be differ ent from the original. Location: [facility] Diabetes 07/07/2013 Resolved Problems Problem Noted Date Resolved Date Generalized seizure 03/02/2019 03/08/2019 Hyperglycemia 03/02/2019 03/08/2019 Metabolic acidosis 03/02/2019 03/08/2019 Acute hypercapnic respiratory failure 03/02/2019 03/08/2019 On mechanically assisted ventilation 03/02/2019 0 03/08/2019 Seizure 03/02/2019 03/08/2019 Immunizations Name Administration Dates Next Due Pneumococcal [...] CDT Respiratory Rate 97% 04/29/2019 11:55 AM RN NIGHT Oxygen Saturation - - Inhaled Oxygen Concentration 95.7 kg (211 lb) 10/20/2019 9:49 AM CDT Weight 177.8 cm (5' 10") 10/20/2019 9:49 AM CDT Height 30.28 10/20/2019 9:49 AM CDT Body Mass Index Plan of Treatment Health Maintenance Due Date Last Done Comments MICROALBUMIN 1975 HIV SCREENING 1989 DILATED EYE EXAM 1992 DTAP/TDAP VACCINES (1 - 1992 Tdap) FOOT EXAM 1992 HEPATITIS C SCREENING 1992 PHYSICAL (COMPREHENSIVE) 1992 EXAM HBA1C 08/31/2019 03/02/2019 INFLUENZA VACCINE 09/30/2020 Goals Goal Patient Associated Recent Progress Patient-Stat Aut hor Goal Type Problems ed? To be able to Stay in Own Home Lifestyle No Karen, for as Long as Possible MONTSE So Results Not on filefrom Last 3 Months Advance Directives Patient Oncology Rn Explanation Type Date Recorded Advance 03/03/2019 8:24 [...] discussed Code Status Yes w/Patient or Family? Care Teams Start Date End Date Bindery Assistant Relationship Specialty 04/13/19 Carmelita Avila NP PCP - General Nurse [address] [place] [address] Practitioner [place], [place] [address] 07/07/13 Lo Wilson MD [facility] [address] [facility] [place], [place] [address] 07/11/13 Ghada Haywood
--- OUTSIDE RECORDS SUMMARY | 2021-02-22 09:45 | XMS REPORT | Encounter Summary ---
Author Author [facility] Organization [facility] Address Unknown Phone Unavailable Care Team Providers Care Communications Project Manager Name Role Phone AustinCarmelita weiss AMANDA PCP Reason for Visit * Reason Comments Abdominal Pain pt reports having N/V/D int ermittenly for the past couple of weeks and that has gotten worse over the past two days and he is having mid abd pain as well. * Auth/Cert Diagnoses / Procedures Referred By Contact Referred To [facility] Specialty Diagnoses Urinary tract infection without hematuria, site unspecified Urinary tract infection without hematuria, site unspecified Referral ID Status Reason Start Date Expiration Visits Vi sits Date Requested Authorized [id number] 1 1 Encounter Details Care Team Description Date Type Department Rafa Kramer MD [address] [place] [address] Krys Man MD [address] [place] [address] Bruce Samayoa MD [address] [place] [address] Lili Jay MD [address] [place] [address] Temitope Horton MD [address] [place] [id number] Ricardo August MD [address] [place] [address] Urinary tract infection without hematuri a, site unspecified (Primary Dx); Acute renal failure superimposed on chronic kidney disease, unspecified CKD stage, unspecified acute renal failure type (HCC); Nephrolithiasis; Headache, unspecified headache type 12/12/2020 [facility] 12/25/[id number] [place] [address] Social History Date Tobacco Use Types Packs/Day Years Used Current Every Day Smoker 1 30 Smokeless Tobacco: Current User Comments Alcohol Use Standard Drinks/Week Not Currently 0 (1 standard drink = 0.6 o z pure alcohol) Sex Assigned at Date Recorded Not on file documented as of this encounter Last Filed Vital Signs Reading Time Taken [...] 12/13/2020 12:04 PM CDT Body Mass Index documented in this encounter Discharge Summaries * Ricardo Augsut MD - 12/25/2020 1:07 PM CDT Images from the original note were not included. [facility] Patient Name: Sommer Callahan Account No: [id number] Date of : 1975 Date of Admission: 12/12/2020 5:55 PM Date of Discharge: 12/25/2020 1:07 PM Length of Stay: 13 Days Readmit Risk: 21 Primary Care Physician: Carmelita Avila APRN; Disposition: Discharged in stable condition to home. Problems Addressed During This Admission: Principal Problem: Acute kidney injury superimposed on chronic kidney disease (HCC) Active Problems: Type 1 diabetes mellitus with hyperglycemia (HCC) Hypertension Urinary tract infection without hematuria Nephrotic syndrome Anemia due to chronic kidney disease Nephrolithiasis Dyslipidemia Mastoiditis of left side Strain of muscle, fascia and tendon at neck level, initial encounter Resolved Problems: * No resolved hospital problems. * Reason for Hospital Admission and Brief Hospital Course: Mr. Sommer Callahan is a 45 y.o. male with CKD and type 1 DM who was admitted on 12/12/2020 with abdominal pain, nausea, and vomiting. CT revealed nephrolithiasis without obstruction. H hank had recently been treated for MSSA UTI. Evaluation on presentation revealed A KI. Nephrology, urology, and ID were consulted. Therapy included cefazolin, bi carbonate infusion, and acute hemodialysis. He complained of left sided headach e and upper respiratory symptoms. CT and MRI revealed evidence of mastoiditis. He was started on Augmentin. On 12/25 the patient denied urinary symptoms, flank pain, nausea, headache, and ear pain. He complained of increased chronic neuropathic pain and decreased vis ual acuity since admission. I discussed the discharge plan and medication pastrana es with him. I recommended he call his retina specialist [facility] for recommendatio ns for follow up. I encouraged him to continue the reduced gabapentin dose and see his PCP within 14 days. Follow Up: Dr. Carmelita Avila APRN, primary care physician in within 14 days. Discharge Medications New Medications Indication(s) acetaminophen 325 MG tablet Commonly known as: TYLENOL 650 mg, Oral, Every 6 hours PRN amoxicillin-clavulanate 500-125 mg per tablet Commonly known as: AUGMENTIN 1 tablet, Oral, Daily Start taking on: December 26, 2020 Indication: OTITIS calcium acetate(phosphat bind) 667 mg capsule Commonly known as: PHOSLO 1,334 mg, Oral, 3 times daily with meals losartan 100 MG tablet Commonly known as: COZAAR 100 mg, Oral, Daily Start taking on: December 26, 2020 multiple vitamins B complex with C 0.8 mg tablet Commonly known as: NEPHRO-ELIJAH 1 tablet, Oral, Every evening Modified Medications Indication(s) gabapentin 100 MG capsule Commonly known as: NEURONTIN 200 mg, Oral, 3 times daily What changed: medication strength how much to take Medications To Continue Indication(s) ALPRAZolam 0.5 MG tablet Commonly known as: XANAX 0.5 mg, Oral, Nightly PRN amLODIPine 5 MG tablet Commonly known as: NORVASC 5 mg, Oral, Daily Indication: high blood pressure aspirin 81 MG chewable tablet 81 mg, Oral, Daily Indication: stroke prevention atorvastatin 20 MG tablet Commonly known as: LIPITOR 20 mg, Oral, Nightly caRVEDILoL 12.5 MG tablet Commonly known as: Coreg 6.25 mg, Oral, 2 times daily with meals cholecalciferol (vitamin D3) 1,000 units(25 mcg) tablet 2,000 Units, Oral, Daily cyanocobalamin 50 mcg tablet Commonly known as: VITAMIN B-12 50 mcg, Oral, Daily cyclobenzaprine 10 MG tablet Commonly known as: FLEXERIL 10 mg, Oral, 2 times daily PRN Indication: muscle spasm hydrALAZINE 100 MG tablet Commonly known as: APRESOLINE 100 mg, Oral, Every 8 hours insulin detemir U-100 100 unit/mL injection Commonly known as: LEVEMIR 10 Units, Subcutaneous, Nightly Indication: type 1 diabetes mellitus insulin lispro 100 unit/mL injection Commonly known as: HumaLOG 1-10 Units, Subcutaneous, 3 times daily before meals loratadine 10 mg tablet Commonly known as: CLARITIN 10 mg, Oral, Daily PRN * methylphenidate HCl 5 MG tablet Commonly known as: RITALIN 5 mg, Oral, Every morning * methylphenidate HCl 10 MG tablet Commonly known as: RITALIN 10 mg, Oral, 2 times daily omega 3 fish oil DHA 200 mg-EPA 300 mg (1,000 mg) capsule Commonly known as: SEA OMEGA 1 capsule, Oral, Daily QUEtiapine 50 MG tablet Commonly known as: SEROquel 50 mg, Oral, Nightly sertraline 100 mg tablet Commonly known as: ZOLOFT 100 mg, Oral, Daily trazodone 100 MG tablet Commonly known as: DESYREL 100 mg, Oral, Nightly * There are duplicate medications prescribed to the patient Stopped Medications cloNIDine HCL 0.1 mg tablet Commonly known as: CATAPRES potassium chloride 10 MEQ CR tablet Commonly known as: KLOR-CON Code Status: Full Code Recommended Diet: Diet NPO Vital Signs at the time of discharge: Blood Pressure: BP: (!) 154/98 Pulse: Pulse: 78 Temperature: Temp: 36.5 C (97.7 F) Respirations: Resp: 14 Admission Weight: Weight: 88.5 kg (195 lb) O2 Saturation: SpO2: 94 % Discharge Weight: Weight: 83.7 kg (184 lb 8 oz) BMI: Body mass index is 26.47 kg /m. Physical Exam Gen: Reclining in bed appearing in no distress. Skin: Mild pallor. Tunneled catheter site dry. Neuro: Attentive and calm. Imaging during this encounter: MRI Head wo contrast Result Date: 12/20/2020 Old infarcts are seen in the posterior [...] moderate peripheral left maxillary mucosal thickening seen. XR Chest 2 views (PA and lateral) Result Date: 12/18/2020 Moderate acute pneumonia left lower lobe with small effusion. Mild parahilar atelectasis on the right. Double-lumen catheter placement from a jugular approach with the tip overlying the right atrium without pneumothorax on the right Cardiac Studies during this encounter: Echo Congenital Complete with Doppler and Color Flow Result Date: 11/27/2020 1. Lower limits normal left ventricular systolic function, with a calculated e jection fraction by 3D echo of 53%. 2. Moderate to severe concentric left ventricular hypertrophy. 3. Abnormal global longitudinal myocardial strain. -14 (Epiq) 4. No significant valvular abnormalities. 5. No previous study available for comparison. Yao Gomez MD (Electronically Signed) Final Date: 27 November 2020 11:06 40 minutes were spent in the discharge of this patient performing the physical e xam, writing the discharge orders, and reviewing the patient's discharge plan of care and follow up information as noted above as well as other information as d ocumented in this summary note. Ricardo August MD [facility] Medicine Division . documented in this encounter Discharge Instructions * Appointments* Trudi Javed LMSW - 12/24/2020 1:34 PM CDT [facility] Thu/Thu/Thu 12:30 p.m. [phone] [address] [place] [address] * Discharge Instr - Other Orders* Lorraine Hand RN - 12/25/2020 1:18 PM CDT Your first dialysis appointment is ThursdayDecember 26 at the [facility] dialysis [facility] * Additional Instructions* Kamala Barbosa RD - 12/19/2020 Images from the original note were not included. Kidney Disease: Balancing Calcium and Phosphorus Calcium and phosphorus are minerals found in many foods. Your body works best wh en these minerals are in balance. But if you have kidney disease,phosphorus ma y build up in your blood. This can weaken your bones over time. To help keep you r bones strong, control the amount of phosphorus in your body. This sheet tells you how. Take phosphate binders Phosphate binders are medicines that stick to the phosphorus in the food you eat . This keeps the phosphorus from being absorbed into your body. Instead, the yudi sphorus passes from your body with stool (solid waste). For best results, keep t hese tips in mind: ?Use only the type of phosphate binder that your healthcare provider recommend s. The type of binder that you should be taking is ?Always take phosphate binders as directed. ?With meals ?Other ?Phosphate binders can cause constipation. You may need to eat more fiber or t bradford stool softeners. Limit these foods Do not eat these foods To keep calcium and phosphorus in balance, limit the amount of phosphorus you ea t. To do so, eat less of the following foods: Milk Chocolate Cheese Beer Yogurt Soybeans Ice cream Some foods are so high in phosphorus that you may need to stop eati ng them. Talk with a registered dietitian before eating these foods: Cola drinks Dried or baked beans Nuts and seeds of all kinds Peanut butter Split peas Whole-grain cereals [employer] last reviewed this educational content on 06/01/201919999479-3439 [employer]. All rights reserved. This information is not intended as a substitute for professional medical care. Always follow your healthcare professional's instructions. documented in this encounter Medications at Time of Discharge Start Date End Date Medication Sig Dispensed Refills 12/25/2020 acetaminophen (TYLENOL) Take 2 0 325 MG tablet tablets (650 mg total) by mouth every 6 (six) hours as needed. ALPRAZolam (XANAX) 0.5 MG Take 0.5 mg 0 tablet by mouth nightly as needed. amLODIPine (NORVASC) 5 MG Take 5 mg by 0 tabletIndications: mouth daily. hypertension aspirin 81 MG chewable Chew 81 mg 0 tabletIndications: daily. prevention of cerebrovascular accident atorvastatin (LIPITOR) 20 Take 20 mg by 0 MG tablet mouth nightly. 12/25/2020 calcium acetate,phosphat Take 2 90 capsule 0 bind, (PHOSLO) 667 mg capsules capsule (1,334 mg total) by mouth 3 (three) times a day with meals. 11/28/2020 caRVEDILoL (COREG) 12.5 Take 0.5 60 tablet 2 MG tablet tablets (6.25 mg total) by mouth 2 (two) times a day with meals. cholecalciferol, vitamin Take 2,000 0 D3, 1,000 units(25 mcg) Units by tablet mouth daily. cyanocobalamin (VITAMIN Take 50 mcg 0 B-12) 50 mcg tablet by mouth daily. cyclobenzaprine Take 10 mg by 0 (FLEXERIL) 10 MG mouth 2 (two) tabletIndications: muscle times a day spasm as needed for muscle spasms. 12/25/2020 gabapentin (NEURONTIN) Take 2 90 capsule 0 100 MG capsule capsules (200 mg total) by mouth 3 (three) times a day. 11/28/2020 hydrALAZINE (APRESOLINE) Take 1 tablet 90 tablet 2 100 MG tablet (100 mg total) by mouth every 8 (eight) hours while awake. 11/28/2020 insulin detemir U-100 Inject 10 10 mL 1 (LEVEMIR) 100 unit/mL Units under injectionIndications: the skin type 1 diabetes mellitus nightly. 11/28/2020 insulin lispro (HUMALOG) Inject 1-10 10 mL 1 100 unit/mL injection Units under the skin 3 (three) times a day before meals. loratadine (CLARITIN) 10 Take 10 mg by 0 mg tablet mouth daily as needed for allergies. 12/26/2020 losartan (COZAAR) 100 MG Take 1 tablet 30 tablet 0 tablet (100 mg total) by mouth daily. methylphenidate HCl Take 10 mg by 0 (RITALIN) 10 MG tablet mouth 2 (two) times a day. methylphenidate HCl Take 5 mg by 0 (RITALIN) 5 MG tablet mouth every morning. 12/25/2020 multiple vitamins B Take 1 tablet 30 tablet 0 complex with C by mouth (NEPHRO-ELIJAH) 0.8 mg every tablet evening. omega 3 fish oil (SEA Take 1 0 OMEGA) DHA 200 mg-EPA 300 capsule by mg (1,000 mg) capsule mouth daily. QUEtiapine (SEROQUEL) 50 Take 50 mg by 0 MG tablet mouth nightly. sertraline (ZOLOFT) 100 Take 100 mg 0 mg tablet by mouth daily. trazodone (DESYREL) 100 Take 100 mg 0 MG tablet by mouth nightly. 12/26/2020 01/01/2021 amoxicillin-clavulanate Take 1 tablet 6 tablet 0 (AUGMENTIN) 500-125 mg by mouth per tabletIndications: daily. OTITIS documented as of this encounter Progress Notes * Kun Stanton MD - 12/25/2020 12:55 PM CDT [facility] Infectious Disease Comprehensive Progress Note PATIENT NAME: Sommer Callahan DATE: 12/25/2020 AGE: 45 y.o. :[birth year] Subjective: Sleeping soundly. Discussed with RN: no new events. Afebrile. ANTIBIOTICS Principal Problem: Acute kidney injury superimposed on chronic kidney disease (HCC) Active Problems: Type 1 diabetes mellitus with hyperglycemia (HCC) Hypertension Urinary tract infection without hematuria Anemia due to chronic kidney disease Nephrolithiasis Dyslipidemia Nephrotic syndrome Headache, unspecified headache type Mastoiditis of left side Strain of muscle, fascia and tendon at neck level, initial encounter Scheduled Medications: amLODIPine 10 mg Oral Daily amoxicillin-clavulanate 1 tablet Oral Daily atorvastatin 20 mg Oral Nightly calcium acetate(phosphat bind) 1,334 mg Oral TID with meals caRVEDILoL 6.25 mg Oral BID with meals epoetin nnamdi-epbx (RETACRIT) injection 100 Units/kg Subcutaneous Q MWF gabapentin 200 mg Oral TID heparin (porcine) 1,000-5,000 Units Intra-Catheter Once in dialysis hydrALAZINE 100 mg Oral Q8H insulin glargine 8 Units Subcutaneous Nightly insulin lispro 2 Units Subcutaneous TID AC insulin lispro 2-7 Units Subcutaneous 4 times daily before meals and nightl y lactobacillus 1 capsule Oral Daily losartan 100 mg Oral Daily multiple vitamins B complex with C 1 tablet Oral QPM QUEtiapine 50 mg Oral Nightly sertraline 100 mg Oral Daily trazodone 100 mg Oral Nightly Continuous Infusions: Allergies Allergen Reactions Clindamycin Dizziness, Hypotension, Syncope and Hives Varenicline Hallucinations Patient notes experiencing hallucinations and mood changes w/ this medication. Opioids - Morphine Analogues Pt states morphine makes him aggressive and doesn't like taking it Metformin Abdominal Pain and Nausea And Vomiting Zolpidem Other reaction(s): sleep walking, UNKNOWN Intake/Output Summary (Last 24 hours) at 12/25/2020 1255 Last data filed at 12/24/2020 1900 Gross per 24 hour Intake 540 ml Output 1300 ml Net -760 ml No intake/output data recorded. Wt Readings from Last 1 Encounters: 12/25/20 83.7 kg (184 lb 8 oz) ROS: 10 system review performed; pertinent positives and negatives listed above otherwise negative. Past medical, family and social history reviewed and is unchanged from initial I D note in chart. Diabetes Profile: Lab Results Component Value Date HGBA1C 12.4 (H) 11/26/2020 GLU 183 (H) 12/25/2020 GLU 187 (H) 12/24/2020 GLU 186 (H) 12/22/2020 Liver Profile: Lab Results Component Value Date ALT 20 12/12/2020 AST 21 12/12/2020 ALKPHOS 74 12/12/2020 Hematologic Profile: Most Recent Result within the last 7 days Lab Units 12/25/20 0245 12/24/20 0500 12/23/20 0623 12/22/20 0411 12/21/20 0420 12/20/20 0301 WBC TH/uL 7.68 6.77 7.25 6.46 8.31 8.05 HEMOGLOBIN g/dL 7.9* 8.0* 7.7* 7.7* 7.2* 7.2* HEMATOCRIT % 25* 25* 23* 24* 22* 22* PLATELET COUNT Th/uL 252 262 261 257 207 206 Metabolic Profile: Most Recent Result within the last 7 days Lab Units 12/25/20 0245 12/24/20 0500 12/22/20 0411 12/21/20 0420 12/20/20 0301 12/19/20 0330 SODIUM mEq/L 138.0 142.0 136 136 134 133 POTASSIUM mEq/L 3.7 3.5 3.2* 3.4* 4.0 4.4 CHLORIDE MEQ/L -- -- 105 101 101 101 CARBON DIOXIDE mEq/L 31 29 29 32 32 31 BLOOD UREA NITROGEN mg/dL 24* 36* 29* 22 24 25 CREATININE mg/dL 2.80* 3.70* 3.7* 3.0* 3.5* 3.6* No results found. Images reviewed independently by me No lab components to display MICROBIOLOGY Results for orders placed or performed during the hospital encounter of 12/12/20 Culture, Urine Collection Time: 12/12/20 5:47 PM Specimen: Clean Voided Urine - Isolate 1 >100,000 Cfu/ml (A) Isolate 1 Methicillin Sensitive Staphylococcus aureus (A) Susceptibility Methicillin sensitive staphylococcus aureus - (no method available) OXACILLIN 0.5 Sensitive LINEZOLID 2 Sensitive NITROFURANTOIN <=16 Sensitive SEPTRA/BACTRIM <=10 Sensitive VANCOMYCIN 1.0 Sensitive Culture, Blood Collection Time: 12/12/20 7:36 PM Specimen: Blood - Culture Result No Growth at 5 days Culture, Blood Collection Time: 12/12/20 7:50 PM Specimen: Blood - Culture Result No Growth at 5 days Physical Exam: Temp: [36.6 C (97.9 F)-37.4 C (99.3 F)] 36.6 C (97.9 F) Pulse: [75-94] 78 Resp: [10-20] 14 BP: (129-159)/(81-99) 154/98 General Appearance: no acute distress. Eyes: no scleral icterus, or conjunctival hemorrhage. HEENT: no sinus tenderness, no oral thrush. SKIN: no rashes or pathologic lesions. Lymphatic: no palpable cervical axillary or inguinal lymph nodes. Heart: Normal s1 s2, no audible murmurs. Lungs: clear to auscultations without wheezing or rales. MUSCULOSKELETAL:examined joints without effusion, normal ROM. NEUROLOGIC: grossly non focal. : no suprapubic tenderness or fullness, no external lesions, no CVA tenderness . ABDOMEN: soft, non tender, no rebound or guarding present bowel sounds, no palpa ble masses. PSYCHIATRIC: sleeping Impression 1. MSSA pyelonephritis of right kidney, resolved 2. Extensive left mastoiditis with otitis media 3. Acute kidney injury superimposed on chronic kidney disease; now on hemodial ysis 4. History ofoccipitalcerebrovascular accident (remote) 5. Status post appendectomy 6. Intolerance of clindamycin 7.Poorly controlled diabetes mellitus Plan 1.Continue po Augmentin until 12/31/20 2. OK for discharge from my perspective Discussed with RN Electronically signed by Kun Stanton 12/25/2020 12:55 PM * Kun Stanton MD - 12/24/2020 5:13 PM CDT [facility] Infectious Disease Comprehensive Progress Note PATIENT NAME: Sommer Callahan DATE: 12/24/2020 AGE: 45 y.o. :[birth year] Subjective: Feels better. Headache resolved after initiation of Augmentin. Afebrile. ANTIBIOTICS Principal Problem: Acute kidney injury superimposed on chronic kidney disease (HCC) Active Problems: Type 1 diabetes mellitus with hyperglycemia (HCC) Hypertension Urinary tract infection without hematuria Anemia Nephrolithiasis Dyslipidemia Nephrotic syndrome Headache, unspecified headache type Mastoiditis of left side Strain of muscle, fascia and tendon at neck level, initial encounter Scheduled Medications: amLODIPine 10 mg Oral Daily amoxicillin-clavulanate 1 tablet Oral Daily atorvastatin 20 mg Oral Nightly calcium acetate(phosphat bind) 1,334 mg Oral TID with meals caRVEDILoL 6.25 mg Oral BID with meals epoetin nnamdi-epbx (RETACRIT) injection 100 Units/kg Subcutaneous Q MWF gabapentin 200 mg Oral TID heparin (porcine) 1,000-5,000 Units Intra-Catheter Once in dialysis hydrALAZINE 100 mg Oral Q8H insulin glargine 8 Units Subcutaneous Nightly insulin lispro 2 Units Subcutaneous TID AC insulin lispro 2-7 Units Subcutaneous 4 times daily before meals and nightl y lactobacillus 1 capsule Oral Daily losartan 100 mg Oral Daily multiple vitamins B complex with C 1 tablet Oral QPM QUEtiapine 50 mg Oral Nightly sertraline 100 mg Oral Daily trazodone 100 mg Oral Nightly Continuous Infusions: Allergies Allergen Reactions Clindamycin Dizziness, Hypotension, Syncope and Hives Varenicline Hallucinations Patient notes experiencing hallucinations and mood changes w/ this medication. Opioids - Morphine Analogues Pt states morphine makes him aggressive and doesn't like taking it Metformin Abdominal Pain and Nausea And Vomiting Zolpidem Other reaction(s): sleep walking, UNKNOWN Intake/Output Summary (Last 24 hours) at 12/24/2020 1713 Last data filed at 12/24/2020 1428 Gross per 24 hour Intake 1252 ml Output 1300 ml Net -48 ml I/O last 24 Hours: In: 300 [Other:300] Out: 1300 [Other:1300] Wt Readings from Last 1 Encounters: 12/24/20 82.7 kg (182 lb 5.1 oz) ROS: 10 system review performed; pertinent positives and negatives listed above otherwise negative. Past medical, family and social history reviewed and is unchanged from initial I D note in chart. Diabetes Profile: Lab Results Component Value Date HGBA1C 12.4 (H) 11/26/2020 GLU 187 (H) 12/24/2020 GLU 186 (H) 12/22/2020 GLU 165 (H) 12/21/2020 Liver Profile: Lab Results Component Value Date ALT 20 12/12/2020 AST 21 12/12/2020 ALKPHOS 74 12/12/2020 Hematologic Profile: Most Recent Result within the last 7 days Lab Units 12/24/20 0500 12/23/20 0623 12/22/20 0411 12/21/20 0420 12/20/20 0301 12/19/20 0330 WBC TH/uL 6.77 7.25 6.46 8.31 8.05 8.24 HEMOGLOBIN g/dL 8.0* 7.7* 7.7* 7.2* 7.2* 7.2* HEMATOCRIT % 25* 23* 24* 22* 22* 22* PLATELET COUNT Th/uL 262 261 257 207 206 210 Metabolic Profile: Most Recent Result within the last 7 days Lab Units 12/24/20 0500 12/22/20 0411 12/21/20 0420 12/20/20 0301 12/19/20 0330 12/18/20 0324 SODIUM mEq/L 142.0 136 136 134 133 134 POTASSIUM mEq/L 3.5 3.2* 3.4* 4.0 4.4 4.3 CHLORIDE MEQ/L -- 105 101 101 101 101 CARBON DIOXIDE mEq/L 29 29 32 32 31 31 BLOOD UREA NITROGEN mg/dL 36* 29* 22 24 25 40* CREATININE mg/dL 3.70* 3.7* 3.0* 3.5* 3.6* 4.3* No results found. Images reviewed independently by me No lab components to display MICROBIOLOGY Results for orders placed or performed during the hospital encounter of 12/12/20 Culture, Urine Collection Time: 12/12/20 5:47 PM Specimen: Clean Voided Urine - Isolate 1 >100,000 Cfu/ml (A) Isolate 1 Methicillin Sensitive Staphylococcus aureus (A) Susceptibility Methicillin sensitive staphylococcus aureus - (no method available) OXACILLIN 0.5 Sensitive LINEZOLID 2 Sensitive NITROFURANTOIN <=16 Sensitive SEPTRA/BACTRIM <=10 Sensitive VANCOMYCIN 1.0 Sensitive Culture, Blood Collection Time: 12/12/20 7:36 PM Specimen: Blood - Culture Result No Growth at 5 days Culture, Blood Collection Time: 12/12/20 7:50 PM Specimen: Blood - Culture Result No Growth at 5 days Physical Exam: Temp: [36.4 C (97.6 F)-36.9 C (98.5 F)] 36.7 C (98.1 F) Pulse: [83-95] 87 Resp: [15-20] 18 BP: (142-164)/(80-99) 142/83 General Appearance: no acute distress. Eyes: no scleral icterus, or conjunctival hemorrhage. HEENT: no sinus tenderness, no oral thrush. SKIN: no rashes or pathologic lesions. Lymphatic: no palpable cervical axillary or inguinal lymph nodes. Heart: Normal s1 s2, no audible murmurs. Lungs: clear to auscultations without wheezing or rales. MUSCULOSKELETAL:examined joints without effusion, normal ROM. NEUROLOGIC: grossly non focal. : no suprapubic tenderness or fullness, no external lesions, no CVA tenderness . ABDOMEN: soft, non tender, no rebound or guarding present bowel sounds, no palpa ble masses. PSYCHIATRIC: alert, oriented, no changes of anxiety or depression. Assessment/Plan: 1. MSSA pyelonephritis of right kidney,improved 2. Extensive left mastoiditis with otitis media 3. Acute kidney injury superimposed on chronic kidney disease; now on hemodial ysis 4. History of occipital cerebrovascular accident (remote) 5. Status post appendectomy 6. Intolerance of clindamycin 7. Poorly controlled diabetes mellitus Plan 1.Continue po Augmentin until 12/31/20 Electronically signed by Kun Stanton 12/24/2020 5:13 PM * Carlos Hsieh MD - 12/24/2020 5:13 PM CDT [facility] - Progress Note MD Mike Brown MD Achal Desai, MD Kristine Herron, MD Richard Schumacher Suleiman Daifallah, MD Archana Goel MD Encounter Date: 12/24/2020 5:13 PM Patient Demographic Information: Patient Name: Sommer Callahan Age: 45 y.o. Sex: male Date of : 1975 Current Admission: Admit Date: 12/12/2020 Admitting Physician: Krys Man MD Length of Stay: 12 Days Note Author: Carlos Hsieh Asked to see patient for: ARF/ CKD stage III Fluid and Electrolytes sarahn t Patient Active Problem List Diagnosis SNOMED CT(R) VALERIE (acute kidney injury) (HCC) ACUTE INJURY OF KIDNEY Type 1 diabetes mellitus with hyperglycemia (HCC) HYPERGLYCEMIA DUE TO TYPE 1 DIABETES MELLITUS Hypertension HYPERTENSIVE DISORDER Vaccine counseling COUNSELING PROCEDURE WITH EXPLICIT CONTEXT Depression DEPRESSIVE DISORDER Noncompliance with diabetes treatment NONCOMPLIANCE WITH TREATMENT Tobacco abuse 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 Urinary tract infection without hematuria URINARY TRACT INFECTIOUS DISEASE Acute kidney injury superimposed on chronic kidney disease (HCC) ACUTE RENAL FAILURE SYNDROME Anemia ANEMIA Nephrolithiasis KIDNEY STONE Dyslipidemia DYSLIPIDEMIA Nephrotic syndrome NEPHROTIC SYNDROME Headache, unspecified headache type HEADACHE Mastoiditis of left side LEFT MASTOIDITIS Strain of muscle, fascia and tendon at neck level, initial encounter STRAIN OF NECK MUSCLE CURRENT ACTIVE MEDICATIONS: amLODIPine 10 mg Oral Daily amoxicillin-clavulanate 1 tablet Oral Daily atorvastatin 20 mg Oral Nightly calcium acetate(phosphat bind) 1,334 mg Oral TID with meals caRVEDILoL 6.25 mg Oral BID with meals epoetin nnamdi-epbx (RETACRIT) injection 100 Units/kg Subcutaneous Q MWF gabapentin 200 mg Oral TID heparin (porcine) 1,000-5,000 Units Intra-Catheter Once in dialysis hydrALAZINE 100 mg Oral Q8H insulin glargine 8 Units Subcutaneous Nightly insulin lispro 2 Units Subcutaneous TID AC insulin lispro 2-7 Units Subcutaneous 4 times daily before meals and nightl y lactobacillus 1 capsule Oral Daily losartan 100 mg Oral Daily multiple vitamins B complex with C 1 tablet Oral QPM QUEtiapine 50 mg Oral Nightly sertraline 100 mg Oral Daily trazodone 100 mg Oral Nightly acetaminophen, ALPRAZolam, ilowqnzwcd-kwbipvarmjzpa-zmpldxoa, cyclobenzaprine, d extrose 50%, glucagon OR glucagon, glucose, magnesium sulfate, ondansetron, sodium chloride 0.9%, tramadoL Blood Pressure: BP: (!) 142/83 Pulse: Pulse: 87 Temperature: Temp: 36.7 C (98.1 F) Respirations: Resp: 18 Admission Weight: Weight: 88.5 kg (195 lb) O2 Saturation: SpO2: 98 % Today's Weight: Weight: 82.7 kg (182 lb 5.1 oz) BMI: Body mass index is 26.16 kg /m. Intake/Output Summary (Last 24 hours) at 12/24/2020 1713 Last data filed at 12/24/2020 1428 Gross per 24 hour Intake 1252 ml Output 1300 ml Net -48 ml Most Recent Result within the last 7 days Lab Units 12/24/20 0500 12/23/20 0623 12/22/20 0411 12/21/20 0420 12/20/20 0301 12/20/20 0301 12/19/20 0330 12/19/20 0330 12/18/20 0324 12/18/20 0324 SODIUM mEq/L 142.0 -- 136 136 -- 134 < > 133 < > 134 POTASSIUM mEq/L 3.5 -- 3.2* 3.4* -- 4.0 < > 4.4 < > 4.3 CHLORIDE MEQ/L -- -- 105 101 -- 101 -- 101 < > 101 CARBON DIOXIDE mEq/L 29 -- 29 32 -- 32 < > 31 < > 31 BLOOD UREA NITROGEN mg/dL 36* -- 29* 22 -- 24 < > 25 < > 40* CREATININE mg/dL 3.70* -- 3.7* 3.0* -- 3.5* < > 3.6* < > 4.3* GLUCOSE mg/dL 187* -- 186* 165* -- 161* < > 140* < > 120* CALCIUM mg/dL 8.3 -- 8.2* 7.9* -- 8.1* < > 7.8* < > 7.8* ALBUMIN g/dL 3.1* -- 2.8* 2.4* -- 2.4* < > 2.3* < > 2.4* MAGNESIUM mg/dL -- -- 2.1 -- -- -- -- -- -- 1.8 PHOSPHORUS mg/dL 4.4 -- 4.6* 4.0 -- 4.5 < > 4.0 < > 5.9* HEMOGLOBIN g/dL 8.0* 7.7* 7.7* 7.2* < > 7.2* < > 7.2* < > 7.0* HEMATOCRIT % 25* 23* 24* 22* < > 22* < > 22* < > 22* PLATELET COUNT Th/uL 262 261 257 207 < > 206 < > 210 < > 212 < > = values in this interval not displayed. Subjective: Patient claims he is feeling much better. He had dialysis earlier t [facility] and hence a permacath was unable to be placed in a timely manner ROS: GEN: no Fevers noChills RESP: No shortness of breath no Cough CVS: no CP no PRATHER ( Pt not ambulated) GI: No nausea no Vomiting no Diarrhea : no Dysuria no Urgency Physical Exam: GENERAL Awake, Alert Oriented x 3 In NAD HEAD: NCAT No obvious wounds EYES: SCLERA: Anicteric Conjunctiva: Normal ENT: Mucous Membranes Moist No Active Ear/ Nasal Drainage NECK: Supple no JVD no JVP LUNGS: Clear to Auscultation No Rales No Rhonchi Good Air Entry Bilaterally HEART: S1 S2 possible soft murmur No Gallop No RUB Edema: none ABD: NT ND No Palpable HS Megaly on my exam + Bowel sounds : Minimal CVA Tenderness (post biopsy) no Suprapubic Tenderness No results found. No results found. Assessment and Plan: VALERIE plus CKD 4 with possible progression to ESRD. He is feeling much better ove rall. He is set up for outpatient dialysis on a Thursday basis. Right kidney pyelonephritis: Currently asymptomatic. It is a small possibility that kidney function may improve somewhat once pyelonephritis is resolved Nephrotic syndrome due to advanced diabetic nephropathy and arterionephroscleros is significant interstitial fibrosis also as noted on kidney biopsy. Hence losa rtan added HyperTN: Current Medication list reviewed; losartan added Anemia in the setting of Renal Failure:: RhuEPO as Ordered to maintain Hemog lobin in 10-11 range Okay to discharge from renal standpoint Renal related Labs, imaging studies were reviewed, Meds interventions and plan d iscussed with patient and family at bedside. Questions answered to their satisfa ction. This note was partially created using [employer] voice recognition software in a spa ce with significant background noise and ongoing conversation (which is beyond m y control). I have diligently proof read the note to the best of my ability but errors due to bread wrapper software may be missed. Any such errors are unintent ional and I will be happy to clarify if brought to my attention (even at a later date) Electronically signed by: Carlos Hsieh 12/24/2020, 5:13 PM * Temitope Horton MD - 12/24/2020 2:36 PM CDT [facility] Patient Name: Sommer Callahan Account No: [id number] Date of : 1975 Date of Admission: 12/12/2020 5:55 PM Subjective Follow up regarding VALERIE on likely CKD, concern for MSSA UTI, uncontrolled type I dm Pt has initiated HD in this admission. Ongoing headache at base of Left head - now much improved after augmentin used to cover mastoiditis. Eager to dc once permanent line placed. ROS Vision still has complaints of blurry / dark vision (worse recently) Denies any chest pain/ difficulty breathing. Appetite is improved ROS as above Neg: no cp, thierno, n/v/abd pain, itching, dysuria, myalgias Pos: + neck pain over left mastoid area improved Objective Vital Signs: Temp: 36.9 C (98.5 F) Pulse: 94 Resp: 20 BP: (!) 150/87 SpO2: 9 4 % Height: 177.8 cm (5' 10") Weight: 82.7 kg (182 lb 5.1 oz) I/O last 24 Hours: In: 540 [P.O.:240; Other:300] Out: 1300 [Other:1300] Physical Exam Gen: Non-toxic appearing, NAD, alert, oriented x 3, insight intact HEENT: Conjugate gaze, O/P MMM, no erythema, no thrush Neck supple Muscle Trigger points along the left anterior scalenes and SCM remain No JVD TDC temporary line in R neck no erythema/exudate/warmth CHEST: CTA bilaterally, no r/r/w CV: RRR S1 and S2 normal, no m/r/g ABD: s/nt/nd, nabs, no hm EXT: Warm, no c/c/e SKIN: no erythematous rash, tattoos noted UE NEURO: non-focal, moving all four extremities symmetrically I have personally reviewed the patient's vital signs, laboratory/pathology/cultu re results (as indicated), diagnostic tests/studies (results were not discussed with the performing provider), current inpatient medications, industrial rehabilitation consultant notes a nd telecommunications support notes with pertainent findings noted within the assessment/plan . Assessment/Plan Mr. Sommer Callahan is a 45 y.o. male who was admitted on 12/12/2020 with complaint of Abdominal Pain. Patient was just discharged from the hospital after treatmen t of MSSA UTI. He returned back to the ER with complaints of nausea, vomiting a nd abdominal discomfort. He was found to have acute kidney injury on his CKD. Nephrology was consulted, he was initially started on sodium bicarb drip. Given his recent history of MSSA UTI, he was empirically started on Ancef and infecti ous disease was consulted who felt that patient most likely has right-sided pyel onephritis and recommended to continue Ancef. Patient subsequently underwent te mporary hemodialysis catheter placement. He also had a renal biopsy the results of which are suggesting diabetic nephropathy. He has been initiated on hemodia lysis per nephrology. Patient has also been having refractory headache for whic h neurology has been consulted. He has had uncontrolled blood pressure during h is stay and his home regimen have been adjusted. Given nephrolithiasis found on the CAT scan, urology was also consulted who has recommended conservative manag ement and outpatient follow-up. Discharge delayed (medically ready 12/24) as: - permanent HD line that was suppose to happen today is now happening tomorrow - no ride to [facility] ( sick) - transport issue - HD outpt still not set up per (delay) - they are working on it Of note, [place] needs urgent apt with [facility] Dr. Johnson - have reque sted it gets made for dc day so he can go to it and then travel back home ([address] given worsened vision (nothing acute / emergency) Problems addressed with today's visit include: Hypokalemia Repleted cautiously (dialysis pt) 12/22, modifying dialysate? * Acute kidney injury superimposed on chronic kidney disease (HCC) -Cr reported to be 1-1.3 in 04/2020 -Progressive worsening with signs of nephrotic syndrome -Status post right IJ temporary hemodialysis catheter placement --->delayed today due to dialysis. IR will now do permanent line tomorrow. -s/p renal biopsy, preliminary report suggesting possible diabetic nephropathy -Nephrology on board -Currently receiving hemodialysis per nephrology, plans for permacath placement Type 1 diabetes mellitus with hyperglycemia (HCC) -A1C 12.4 on 11/26/20 -Resumed Levemir, dosing being adjusted -Additional sliding scale insulin coverage. - reviewing last 24 hrs and changes being made Nephrotic syndrome -Likely diabetic nephropathy -Per nephrology Urinary tract infection without hematuria -Blood cultures negative, urine cultures growing MSSA Had been changed to keflex 12/20, but ID agreed changing to cover sinuses and ma stoid bone - augmentin empirically 12/21 -Appreciate urology consult, no active intervention for nephrolithiasis Hypertension -Resumed home dose of amlodipine, Coreg, hydralazine -Continues to be suboptimally controlled, uptitrated the dose of amlodipine and subsequently hydralazine Strain of muscle, fascia and tendon at neck level, initial encounter Needs myofascial release/rolfing as outpt Inpt: can do heat, and ice alternating therapy. Have to avoid nsaids due to ckd Mastoiditis of left side Chronic headache, hx of sinus infections, uncontrolled DM I - will treat as acut e infection. Discussed w ID, recommend Augmentin for now, started 12/21 and yoshi tor Headache, unspecified headache type -With sinus tenderness -CT head consistent with mastoiditis augmentin 12/21 -Continues to have refractory headache, appreciate neurology recommendations Dyslipidemia -Resumed home statin Nephrolithiasis -Urology recommended outpatient follow-up Anemia -Could be related to renal disease iron studies unremarkable -EPO given per nephrology -Transfuse to keep hemoglobin more than 7 Myofascial neck strain: Needs outpt pt, myofascial release or rolfing See my orders for additional details regarding this patients treatment plan. Expected Discharge Date The patient's predicted discharge date is 12/25/2020, but this doesn't guarantee a discharge on this date. Anticipated Discharge Destination The patient's anticipated discharge destination is [facility]. Room: [address] [place] [address] Diet: Diet-Hemodialysis, Consistent Carbohydrate VTE Prevention: Appropriate VTE chemical treatment ordered. Appropriate VTE mec hanical treatment ordered. Code Status: Full Code Yanez Catheter: N/A Scheduled Meds: amLODIPine 10 mg Oral Daily amoxicillin-clavulanate 1 tablet Oral Daily atorvastatin 20 mg Oral Nightly calcium acetate(phosphat bind) 1,334 mg Oral TID with meals caRVEDILoL 6.25 mg Oral BID with meals epoetin nnamdi-epbx (RETACRIT) injection 100 Units/kg Subcutaneous Q MWF gabapentin 200 mg Oral TID heparin (porcine) 1,000-5,000 Units Intra-Catheter Once in dialysis hydrALAZINE 100 mg Oral Q8H insulin glargine 8 Units Subcutaneous Nightly insulin lispro 2 Units Subcutaneous TID AC insulin lispro 2-7 Units Subcutaneous 4 times daily before meals and nightl y lactobacillus 1 capsule Oral Daily losartan 100 mg Oral Daily multiple vitamins B complex with C 1 tablet Oral QPM QUEtiapine 50 mg Oral Nightly sertraline 100 mg Oral Daily trazodone 100 mg Oral Nightly Continuous Infusions: PRN Meds: acetaminophen, ALPRAZolam, ahbkdraenf-ryblzjgsrhiqm-xgnloyer, cyclobenzaprine, d extrose 50%, glucagon OR glucagon, glucose, magnesium sulfate, ondansetron, sodium chloride 0.9%, tramadoL Temitope Horton MD [facility] Medicine Division . * Trudi Javed LMSW - 12/24/2020 1:34 PM CDT Yenny from [facility] called. Sommer has been financially and medically peter red to start at their location on Thursday. His schedule is MWF 12:30 p.m. Upd ated the AVS. Michael Regalado Dialysis Coordinator [phone] * Trudi Javed LMSW - 12/24/2020 11:00 AM CDT More records sent via [facility] to [facility]. Per renal notes, Sommer is ge tting a TDC today. On Thursday, the RN MARIA T secured a copy of Sommer's insurance card for [place] dialysis who was unable to verify his benefits based on the info on t he facesheet. Waiting for financial and medical clearance. Michael Regalado Dialysis Coordinator [phone] * Juan Montes MD - 12/23/2020 3:48 PM CDT [facility] - Progress Note MD Mike Brown MD Achal Desai, MD Kristine Herron, MD Richard Schumacher Suleiman Daifallah, MD Archana Goel MD Encounter Date: 12/23/2020 3:48 PM Patient Demographic Information: Patient Name: Sommer Callahan Age: 45 y.o. Sex: male Date of : 1975 Current Admission: Admit Date: 12/12/2020 Admitting Physician: Krys Man MD Length of Stay: 11 Days Note Author: Juan Montes Asked to see patient for: ARF/ CKD stage III Fluid and Electrolytes mangemen t Patient Active Problem List Diagnosis SNOMED CT(R) VALERIE (acute kidney injury) (HCC) ACUTE INJURY OF KIDNEY Type 1 diabetes mellitus with hyperglycemia (HCC) HYPERGLYCEMIA DUE TO TYPE 1 DIABETES MELLITUS Hypertension HYPERTENSIVE DISORDER Vaccine counseling COUNSELING PROCEDURE WITH EXPLICIT CONTEXT Depression DEPRESSIVE DISORDER Noncompliance with diabetes treatment NONCOMPLIANCE WITH TREATMENT Tobacco abuse 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 Urinary tract infection without hematuria URINARY TRACT INFECTIOUS DISEASE Acute kidney injury superimposed on chronic kidney disease (HCC) ACUTE RENAL FAILURE SYNDROME Anemia ANEMIA Nephrolithiasis KIDNEY STONE Dyslipidemia DYSLIPIDEMIA Nephrotic syndrome NEPHROTIC SYNDROME Headache, unspecified headache type HEADACHE Mastoiditis of left side LEFT MASTOIDITIS Strain of muscle, fascia and tendon at neck level, initial encounter STRAIN OF NECK MUSCLE CURRENT ACTIVE MEDICATIONS: amLODIPine 10 mg Oral Daily amoxicillin-clavulanate 1 tablet Oral Daily atorvastatin 20 mg Oral Nightly calcium acetate(phosphat bind) 1,334 mg Oral TID with meals caRVEDILoL 6.25 mg Oral BID with meals epoetin nnamdi-epbx (RETACRIT) injection 100 Units/kg Subcutaneous Q MWF gabapentin 200 mg Oral TID heparin (porcine) 1,000-5,000 Units Intra-Catheter Once in dialysis hydrALAZINE 100 mg Oral Q8H insulin glargine 8 Units Subcutaneous Nightly insulin lispro 2 Units Subcutaneous TID AC insulin lispro 2-7 Units Subcutaneous 4 times daily before meals and nightl y lactobacillus 1 capsule Oral Daily losartan 100 mg Oral Daily multiple vitamins B complex with C 1 tablet Oral QPM QUEtiapine 50 mg Oral Nightly sertraline 100 mg Oral Daily trazodone 100 mg Oral Nightly acetaminophen, ALPRAZolam, xbtavlblxm-mzqmrsusiulof-ddbvkwla, cyclobenzaprine, d extrose 50%, glucagon OR glucagon, glucose, magnesium sulfate, ondansetron, sodium chloride 0.9%, tramadoL Blood Pressure: BP: (!) 133/90 Pulse: Pulse: 94 Temperature: Temp: 36.9 C (98.4 F) Respirations: Resp: 20 Admission Weight: Weight: 88.5 kg (195 lb) O2 Saturation: SpO2: 98 % Today's Weight: Weight: 83.7 kg (184 lb 8 oz) BMI: Body mass index is 26.47 kg/m . Intake/Output Summary (Last 24 hours) at 12/23/2020 1548 Last data filed at 12/23/2020 1508 Gross per 24 hour Intake 2860 ml Output Net 2860 ml Most Recent Result within the last 7 days Lab Units 12/23/20 0623 12/22/20 0411 12/21/20 0420 12/20/20 0301 12/19/20 0330 12/19/20 0330 12/18/20 0324 12/18/20 0324 12/17/20 0321 12/17/20 0321 SODIUM MEQ/L -- 136 136 134 -- 133 < > 134 < > 135 POTASSIUM MEQ/L -- 3.2* 3.4* 4.0 -- 4.4 < > 4.3 < > 3.3* CHLORIDE MEQ/L -- 105 101 101 -- 101 < > 101 < > 105 CARBON DIOXIDE MEQ/L -- 29 32 32 -- 31 < > 31 < > 33* BLOOD UREA NITROGEN mg/dL -- 29* 22 24 -- 25 < > 40* < > 36* CREATININE mg/dL -- 3.7* 3.0* 3.5* -- 3.6* < > 4.3* < > 3.7* GLUCOSE mg/dL -- 186* 165* 161* -- 140* < > 120* < > 127* CALCIUM mg/dL -- 8.2* 7.9* 8.1* -- 7.8* < > 7.8* < > 7.9* ALBUMIN g/dL -- 2.8* 2.4* 2.4* -- 2.3* < > 2.4* < > 2.5* MAGNESIUM mg/dL -- 2.1 -- -- -- -- -- 1.8 -- 1.8 PHOSPHORUS mg/dL -- 4.6* 4.0 4.5 -- 4.0 < > 5.9* < > 5.5* HEMOGLOBIN g/dL 7.7* 7.7* 7.2* 7.2* < > 7.2* < > 7.0* < > 7.3* HEMATOCRIT % 23* 24* 22* 22* < > 22* < > 22* < > 22* PLATELET COUNT Th/uL 261 257 207 206 < > 210 < > 212 < > 205 < > = values in this interval not displayed. Subjective: NO COMPLAINT VOICED ROS: GEN: SOME WEAKNESS OTHERWISE NOTHING TO REPORT Physical Exam: GENERAL Awake, Alert Oriented x 3 In NAD NECK: Supple no JVD no JVP LUNGS: Clear to Auscultation No Rales No Rhonchi Good Air Entry Bilaterally HEART: S1 S2 possible soft murmur No Gallop No RUB Edema: none ABD: NT ND No Palpable HS Megaly on my exam + Bowel sounds EXT: TRACE EDEMA No results found. No results found. IMP [id number] ESRD CKD STAGE 4 DM II NEPHROTIC PROTEINURIA ANEMIA PLAN HD TOMORROW TUNNELED HD LINE PENDING LOOK FOR RENAL RECOVERY MOST LIKELY ESRD SW SETTING UP OP HD Electronically signed by: Juan Montes 12/23/2020, 3:48 PM * Temitope Horton MD - 12/22/2020 5:37 PM CDT [facility] Patient Name: Sommer Callahan Account No: [id number] Date of : 1975 Date of Admission: 12/12/2020 5:55 PM Subjective Follow up regarding VALERIE on likely CKD, concern for MSSA UTI, uncontrolled type I dm . Ongoing headache at base of Left head - states going on throughout admission 4- 5/10 intensity is now reduced to 2 out of 10, no associated other symptoms. Den ies any chest pain difficulty breathing. Appetite is improved also complains of neck pain left-sided along the left neck. Thinks it is a muscle, myofascial is vivien ROS Neg: no cp, thierno, n/v/abd pain, itching, dysuria, myalgias Pos: + neck pain over left mastoid area, positive chronic headache, sinus pressu re Objective Vital Signs: Temp: 37.4 C (99.3 F) Pulse: 90 Resp: 19 BP: (!) 148/86 SpO2: 9 6 % Height: 177.8 cm (5' 10") Weight: 87.3 kg (192 lb 7.4 oz) I/O last 24 Hours: In: 1260 [P.O.:960; Other:300] Out: 1114 [Other:1114] Physical Exam Gen: Non-toxic appearing, NAD, alert, oriented x 3, insight intact HEENT: Conjugate gaze, O/P MMM, no erythema, no thrush Neck supple Muscle Trigger points along the left anterior scalenes and SCM No JVD TDC temporary line in R neck no erythema/exudate/warmth CHEST: CTA bilaterally, no r/r/w CV: RRR S1 and S2 normal, no m/r/g ABD: s/nt/nd, nabs, no hm EXT: Warm, no c/c/e SKIN: no erythematous rash, tattoos noted UE NEURO: non-focal, moving all four extremities symmetrically I have personally reviewed the patient's vital signs, laboratory/pathology/cultu re results (as indicated), diagnostic tests/studies (results were not discussed with the performing provider), current inpatient medications, industrial rehabilitation consultant notes a nd telecommunications support notes with pertainent findings noted within the assessment/plan . Also discussed case with ID Assessment/Plan Mr. Sommer Callahan is a 45 y.o. male who was admitted on 12/12/2020 with complaint of Abdominal Pain. Patient was just discharged from the hospital after treatmen t of MSSA UTI. He returned back to the ER with complaints of nausea, vomiting a nd abdominal discomfort. He was found to have acute kidney injury on his CKD. Nephrology was consulted, he was initially started on sodium bicarb drip. Given his recent history of MSSA UTI, he was empirically started on Ancef and infecti ous disease was consulted who felt that patient most likely has right-sided pyel onephritis and recommended to continue Ancef. Patient subsequently underwent te mporary hemodialysis catheter placement. He also had a renal biopsy the results of which are suggesting diabetic nephropathy. He has been initiated on hemodia lysis per nephrology. Patient has also been having refractory headache for whic h neurology has been consulted. He has had uncontrolled blood pressure during h is stay and his home regimen have been adjusted. Given nephrolithiasis found on the CAT scan, urology was also consulted who has recommended conservative manag ement and outpatient follow-up. Problems addressed with today's visit include: Hypokalemia Replete cautiously (dialysis pt) * Acute kidney injury superimposed on chronic kidney disease (HCC) -Cr reported to be 1-1.3 in 04/2020 -Progressive worsening with signs of nephrotic syndrome -Status post right IJ temporary hemodialysis catheter placement ---> awaiting for this to be replaced to permanent line on Thursday by IR - nephrology coordinating -s/p renal biopsy, preliminary report suggesting possible diabetic nephropathy -Nephrology on board -Currently receiving hemodialysis per nephrology, plans for permacath placement Type 1 diabetes mellitus with hyperglycemia ([facility]) -A1C 12.4 on 11/26/20 -Resumed Levemir, dosing being adjusted -Additional sliding scale insulin coverage. - reviewing last 24 hrs and changes being made Nephrotic syndrome -Likely diabetic nephropathy -Per nephrology Urinary tract infection without hematuria -Blood cultures negative, urine cultures growing MSSA Had been changed to keflex 12/20, but ID agreed changing to cover sinuses and ma stoid bone - augmentin empirically 12/21 -Appreciate urology consult, no active intervention for nephrolithiasis Hypertension -Resumed home dose of amlodipine, Coreg, hydralazine -Continues to be suboptimally controlled, uptitrated the dose of amlodipine and subsequently hydralazine Strain of muscle, fascia and tendon at neck level, initial encounter Needs myofascial release/rolfing as outpt Inpt: can do heat, and ice alternating therapy. Have to avoid nsaids due to ckd Mastoiditis of left side Chronic headache, hx of sinus infections, uncontrolled DM I - will treat as acut e infection. Discussed w ID, recommend Augmentin for now, started 12/21 and Headache, unspecified headache type -With sinus tenderness -CT head consistent with mastoiditis augmentin 12/21 -Continues to have refractory headache, appreciate neurology recommendations Dyslipidemia -Resumed home statin Nephrolithiasis -Urology recommended outpatient follow-up Anemia -Could be related to renal disease iron studies unremarkable -EPO given per nephrology -Transfuse to keep hemoglobin more than 7 See my orders for additional details regarding this patients treatment plan. Expected Discharge Date The patient's predicted discharge date is 12/22/2020, but this doesn't guarantee a discharge on this date. Anticipated Discharge Destination The patient's anticipated discharge destination is [facility]. Room: [address] [place] [address] Diet: Diet-Hemodialysis, Consistent Carbohydrate VTE Prevention: Appropriate VTE chemical treatment ordered. Appropriate VTE mec hanical treatment ordered. Code Status: Full Code Yanez Catheter: N/A Scheduled Meds: amLODIPine 10 mg Oral Daily amoxicillin-clavulanate 1 tablet Oral Daily atorvastatin 20 mg Oral Nightly calcium acetate(phosphat bind) 1,334 mg Oral TID with meals caRVEDILoL 6.25 mg Oral BID with meals epoetin nnamdi-epbx (RETACRIT) injection 100 Units/kg Subcutaneous Q MWF gabapentin 200 mg Oral TID heparin (porcine) 1,000-5,000 Units Intra-Catheter Once in dialysis hydrALAZINE 100 mg Oral Q8H insulin glargine 8 Units Subcutaneous Nightly insulin lispro 2 Units Subcutaneous TID AC insulin lispro 2-7 Units Subcutaneous 4 times daily before meals and nightl y lactobacillus 1 capsule Oral Daily losartan 100 mg Oral Daily multiple vitamins B complex with C 1 tablet Oral QPM QUEtiapine 50 mg Oral Nightly sertraline 100 mg Oral Daily sodium chloride 0.9 % trazodone 100 mg Oral Nightly Continuous Infusions: PRN Meds: acetaminophen, ALPRAZolam, fppcdscsml-furugslfouize-bsacfmkw, cyclobenzaprine, d extrose 50%, glucagon OR glucagon, glucose, magnesium sulfate, ondansetron, sodium chloride 0.9%, tramadoL Temitope Horton MD [facility] Medicine Division . * Juan Montes MD - 12/22/2020 5:12 PM CDT [facility] - Progress Note MD Mike Brown MD Achal Desai, MD Kristine Herron, MD Richard Schumacher Suleiman Daifallah, MD Archana Goel MD Encounter Date: 12/22/2020 5:12 PM Patient Demographic Information: Patient Name: Sommer Gibsonor Age: 45 y.o. Sex: male Date of : 1975 Current Admission: Admit Date: 12/12/2020 Admitting Physician: Krys Man MD Length of Stay: 10 Days Note Author: Juan Montes Asked to see patient for: ARF/ CKD stage III Fluid and Electrolytes mangemen t Patient Active Problem List Diagnosis SNOMED CT(R) VALERIE (acute kidney injury) (HCC) ACUTE INJURY OF KIDNEY Type 1 diabetes mellitus with hyperglycemia (HCC) HYPERGLYCEMIA DUE TO TYPE 1 DIABETES MELLITUS Hypertension HYPERTENSIVE DISORDER Vaccine counseling COUNSELING PROCEDURE WITH EXPLICIT CONTEXT Depression DEPRESSIVE DISORDER Noncompliance with diabetes treatment NONCOMPLIANCE WITH TREATMENT Tobacco abuse 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 Urinary tract infection without hematuria URINARY TRACT INFECTIOUS DISEASE Acute kidney injury superimposed on chronic kidney disease (HCC) ACUTE RENAL FAILURE SYNDROME Anemia ANEMIA Nephrolithiasis KIDNEY STONE Dyslipidemia DYSLIPIDEMIA Nephrotic syndrome NEPHROTIC SYNDROME Headache, unspecified headache type HEADACHE Mastoiditis of left side LEFT MASTOIDITIS CURRENT ACTIVE MEDICATIONS: amLODIPine 10 mg Oral Daily amoxicillin-clavulanate 1 tablet Oral Daily atorvastatin 20 mg Oral Nightly calcium acetate(phosphat bind) 1,334 mg Oral TID with meals caRVEDILoL 6.25 mg Oral BID with meals epoetin nnamdi-epbx (RETACRIT) injection 100 Units/kg Subcutaneous Q MWF gabapentin 200 mg Oral TID heparin (porcine) 1,000-5,000 Units Intra-Catheter Once in dialysis hydrALAZINE 100 mg Oral Q8H insulin glargine 8 Units Subcutaneous Nightly insulin lispro 2 Units Subcutaneous TID AC insulin lispro 2-7 Units Subcutaneous 4 times daily before meals and nightl y lactobacillus 1 capsule Oral Daily losartan 100 mg Oral Daily multiple vitamins B complex with C 1 tablet Oral QPM QUEtiapine 50 mg Oral Nightly sertraline 100 mg Oral Daily sodium chloride 0.9 % trazodone 100 mg Oral Nightly acetaminophen, ALPRAZolam, ditcurbuqr-djqmwhyybyopt-nsptevyf, cyclobenzaprine, d extrose 50%, glucagon OR glucagon, glucose, magnesium sulfate, ondansetron, sodium chloride 0.9%, tramadoL Blood Pressure: BP: (!) 148/86 Pulse: Pulse: 90 Temperature: Temp: 37.4 C (99.3 F) Respirations: Resp: 19 Admission Weight: Weight: 88.5 kg (195 lb) O2 Saturation: SpO2: 96 % Today's Weight: Weight: 87.3 kg (192 lb 7.4 oz) BMI: Body mass index is 27.62 kg /m. Intake/Output Summary (Last 24 hours) at 12/22/2020 1712 Last data filed at 12/22/2020 1500 Gross per 24 hour Intake 1260 ml Output 1114 ml Net 146 ml Most Recent Result within the last 7 days Lab Units 12/22/20 0411 12/21/20 0420 12/20/20 0301 12/19/20 0330 12/18/20 0324 12/17/20 0321 12/16/20 0159 SODIUM MEQ/L 136 136 134 133 134 135 134 POTASSIUM MEQ/L 3.2* 3.4* 4.0 4.4 4.3 3.3* 3.7 CHLORIDE MEQ/L 105 101 101 101 101 105 104 CARBON DIOXIDE MEQ/L 29 32 32 31 31 33* 33* BLOOD UREA NITROGEN mg/dL 29* 22 24 25 40* 36* 37* CREATININE mg/dL 3.7* 3.0* 3.5* 3.6* 4.3* 3.7* 3.5* GLUCOSE mg/dL 186* 165* 161* 140* 120* 127* 174* CALCIUM mg/dL 8.2* 7.9* 8.1* 7.8* 7.8* 7.9* 7.7* ALBUMIN g/dL 2.8* 2.4* 2.4* 2.3* 2.4* 2.5* 2.5* MAGNESIUM mg/dL 2.1 -- -- -- 1.8 1.8 1.7 PHOSPHORUS mg/dL 4.6* 4.0 4.5 4.0 5.9* 5.5* 5.2* HEMOGLOBIN g/dL 7.7* 7.2* 7.2* 7.2* 7.0* 7.3* 7.1* HEMATOCRIT % 24* 22* 22* 22* 22* 22* 22* PLATELET COUNT TH/uL 257 207 206 210 212 205 217 Subjective: NO COMPLAINT VOICED ROS: GEN: SOME WEAKNESS OTHERWISE NOTHING TO REPORT Physical Exam: GENERAL Awake, Alert Oriented x 3 In NAD NECK: Supple no JVD no JVP LUNGS: Clear to Auscultation No Rales No Rhonchi Good Air Entry Bilaterally HEART: S1 S2 possible soft murmur No Gallop No RUB Edema: none ABD: NT ND No Palpable HS Megaly on my exam + Bowel sounds EXT: TRACE EDEMA No results found. MRI Head wo contrast Result Date: 12/20/2020 Old infarcts are seen in the posterior [...] moderate peripheral left maxillary mucosal thickening seen. IMP VALERIE-ATN CKD STAGE 4 DM II NEPHROTIC PROTEINURIA ANEMIA PLAN HD TODAY UF TO TW LOOK FOR RENAL RECOVERY MOST LIKELY ESRD TUNNELED HD LINE NEXT WEEK SW SETTING UP OP HD Electronically signed by: Juan Montes 12/22/2020, 5:12 PM * Carlos Hsieh MD - 12/21/2020 3:31 PM CDT [facility] - Progress Note MD Mike Brown MD Achal Desai, MD Kristine Herron, MD Richard Schumacher Suleiman Daifallah, MD Archana Goel MD Encounter Date: 12/21/2020 3:31 PM Patient Demographic Information: Patient Name: Sommer Meanor Age: 45 y.o. Sex: male Date of : 1975 Current Admission: Admit Date: 12/12/2020 Admitting Physician: Krys Man MD Length of Stay: 9 Days Note Author: Carlos Hsieh Asked to see patient for: ARF/ CKD stage III Fluid and Electrolytes mangemen t Patient Active Problem List Diagnosis SNOMED CT(R) VALERIE (acute kidney injury) (HCC) ACUTE INJURY OF KIDNEY Type 1 diabetes mellitus with hyperglycemia (HCC) HYPERGLYCEMIA DUE TO TYPE 1 DIABETES MELLITUS Hypertension HYPERTENSIVE DISORDER Vaccine counseling COUNSELING PROCEDURE WITH EXPLICIT CONTEXT Depression DEPRESSIVE DISORDER Noncompliance with diabetes treatment NONCOMPLIANCE WITH TREATMENT Tobacco abuse 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 Urinary tract infection without hematuria URINARY TRACT INFECTIOUS DISEASE Acute kidney injury superimposed on chronic kidney disease (HCC) ACUTE RENAL FAILURE SYNDROME Anemia ANEMIA Nephrolithiasis KIDNEY STONE Dyslipidemia DYSLIPIDEMIA Nephrotic syndrome NEPHROTIC SYNDROME Headache, unspecified headache type HEADACHE CURRENT ACTIVE MEDICATIONS: amLODIPine 10 mg Oral Daily amoxicillin-clavulanate 1 tablet Oral Daily atorvastatin 20 mg Oral Nightly calcium acetate(phosphat bind) 1,334 mg Oral TID with meals caRVEDILoL 6.25 mg Oral BID with meals epoetin nnamdi-epbx (RETACRIT) injection 100 Units/kg Subcutaneous Q MWF gabapentin 200 mg Oral TID heparin (porcine) 1,000-5,000 Units Intra-Catheter Once in dialysis hydrALAZINE 100 mg Oral Q8H insulin glargine 8 Units Subcutaneous Nightly insulin lispro 2-7 Units Subcutaneous 4 times daily before meals and nightl y lactobacillus 1 capsule Oral Daily losartan 100 mg Oral Daily multiple vitamins B complex with C 1 tablet Oral QPM QUEtiapine 50 mg Oral Nightly sertraline 100 mg Oral Daily trazodone 100 mg Oral Nightly acetaminophen, ALPRAZolam, ysyfgctpbd-hrsyhxbpozzel-sgcyadbf, cyclobenzaprine, d extrose 50%, glucagon OR glucagon, glucose, magnesium sulfate, ondansetron, sodium chloride 0.9%, tramadoL Blood Pressure: BP: (!) 147/71 Pulse: Pulse: 87 Temperature: Temp: 38 C (100.4 F) Respirations: Resp: 18 Admission Weight: Weight: 88.5 kg (195 lb) O2 Saturation: SpO2: 95 % Today's Weight: Weight: 88.6 kg (195 lb 4.8 oz) BMI: Body mass index is 28.02 kg /m. Intake/Output Summary (Last 24 hours) at 12/21/2020 1531 Last data filed at 12/21/2020 1400 Gross per 24 hour Intake 1620 ml Output 2500 ml Net -880 ml Most Recent Result within the last 7 days Lab Units 12/21/20 0420 12/20/20 0301 12/19/20 0330 12/18/20 0324 12/17/20 0321 12/16/20 0159 SODIUM MEQ/L 136 134 133 134 135 134 POTASSIUM MEQ/L 3.4* 4.0 4.4 4.3 3.3* 3.7 CHLORIDE MEQ/L 101 101 101 101 105 104 CARBON DIOXIDE MEQ/L 32 32 31 31 33* 33* BLOOD UREA NITROGEN mg/dL 22 24 25 40* 36* 37* CREATININE mg/dL 3.0* 3.5* 3.6* 4.3* 3.7* 3.5* GLUCOSE mg/dL 165* 161* 140* 120* 127* 174* CALCIUM mg/dL 7.9* 8.1* 7.8* 7.8* 7.9* 7.7* ALBUMIN g/dL 2.4* 2.4* 2.3* 2.4* 2.5* 2.5* MAGNESIUM mg/dL -- -- -- 1.8 1.8 1.7 PHOSPHORUS mg/dL 4.0 4.5 4.0 5.9* 5.5* 5.2* HEMOGLOBIN g/dL 7.2* 7.2* 7.2* 7.0* 7.3* 7.1* HEMATOCRIT % 22* 22* 22* 22* 22* 22* PLATELET COUNT TH/uL 207 206 210 212 205 217 Subjective: Patient claims he is feeling much better. His agrees that he l ooks a whole lot better currently. Hematuria appears to have resolved ROS: GEN: no Fevers noChills RESP: Minimal SOB at night no Cough CVS: no CP no PRATHER ( Pt not ambulated) GI: No nausea no Vomiting no Diarrhea : no Dysuria no Urgency Physical Exam: GENERAL Awake, Alert Oriented x 3 In NAD HEAD: NCAT No obvious wounds EYES: SCLERA: Anicteric Conjunctiva: Normal ENT: Mucous Membranes Moist No Active Ear/ Nasal Drainage NECK: Supple no JVD no JVP LUNGS: Clear to Auscultation No Rales No Rhonchi Good Air Entry Bilaterally HEART: S1 S2 possible soft murmur No Gallop No RUB Edema: none ABD: NT ND No Palpable HS Megaly on my exam + Bowel sounds : Minimal CVA Tenderness (post biopsy) no Suprapubic Tenderness No results found. MRI Head wo contrast Result Date: 12/20/2020 Old infarcts are seen in the posterior [...] moderate peripheral left maxillary mucosal thickening seen. Assessment and Plan: VALERIE plus CKD 4 with possible progression to ESRD. We will continue dialysis erich and then Thursday unless outpatient schedule requires otherwise Staph infection: Discussed with ID. Okay to place permacath. Discussed with IR regarding permacath placement on Thursday Subjective shortness of breath mostly at night. Chest x-ray did suggest possibl e left lower lobe pneumonia. Will defer to infectious disease specialist to bro emeli spectrum if needed (had discussed with Dr. Stanton yesterday) Right kidney pyelonephritis: Currently asymptomatic Nephrotic syndrome due to advanced diabetic nephropathy as noted on kidney biops y. Losartan added HyperTN: Current Medication list reviewed; losartan added Anemia in the setting of Renal Failure:: RhuEPO as Ordered to maintain Hemog lobin in 10-11 range Discussed with at bedside Renal related Labs, imaging studies were reviewed, Meds interventions and plan d iscussed with patient and family at bedside. Questions answered to their satisfa ction. This note was partially created using [employer] voice recognition software in a spa ce with significant background noise and ongoing conversation (which is beyond m y control). I have diligently proof read the note to the best of my ability but errors due to bread wrapper software may be missed. Any such errors are unintent ional and I will be happy to clarify if brought to my attention (even at a later date) Electronically signed by: Carlos Hsieh 12/21/2020, 3:31 PM * Temitope Horton MD - 12/21/2020 11:40 AM CDT [facility] Patient Name: Sommer Callahan Account No: [id number] Date of : 1975 Date of Admission: 12/12/2020 5:55 PM Subjective Follow up regarding VALERIE on likely CKD, concern for MSSA UTI, uncontrolled type I dm . Pt denies complaints other than mild discomfort with temporary HD catheter. Ongoing headache at base of Left head - states going on throughout admission 4-5 /10 intensity, no associated other symptoms. ROS Neg: no cp, thierno, n/v/abd pain, itching, dysuria, myalgias Pos: + neck pain over left mastoid area, positive chronic headache, sinus pressu re Objective Vital Signs: Temp: 37 C (98.6 F) Pulse: 87 Resp: 18 BP: (!) 144/81 SpO2: 95 % Height: 177.8 cm (5' 10") Weight: 88.6 kg (195 lb 4.8 oz) I/O last 24 Hours: In: 1620 [P.O.:1620] Out: 1000 [Urine:1000] Physical Exam Gen: Non-toxic appearing, NAD, alert, oriented x 3, insight intact HEENT: Conjugate gaze, O/P MMM, no erythema, no thrush Neck supple No JVD TDC temporary line in R neck no erythema/exudate/warmth CHEST: CTA bilaterally, no r/r/w CV: RRR S1 and S2 normal, no m/r/g ABD: s/nt/nd, nabs, no hm EXT: Warm, no c/c/e SKIN: no erythematous rash, tattoos noted UE NEURO: non-focal, moving all four extremities symmetrically I have personally reviewed the patient's vital signs, laboratory/pathology/cultu re results (as indicated), diagnostic tests/studies (results were not discussed with the performing provider), current inpatient medications, industrial rehabilitation consultant notes a nd telecommunications support notes with pertainent findings noted within the assessment/plan . Also discussed case with ID Assessment/Plan Mr. Sommer Callahan is a 45 y.o. male who was admitted on 12/12/2020 with complaint of Abdominal Pain. Patient was just discharged from the hospital after treatmen t of MSSA UTI. He returned back to the ER with complaints of nausea, vomiting a nd abdominal discomfort. He was found to have acute kidney injury on his CKD. Nephrology was consulted, he was initially started on sodium bicarb drip. Given his recent history of MSSA UTI, he was empirically started on Ancef and infecti ous disease was consulted who felt that patient most likely has right-sided pyel onephritis and recommended to continue Ancef. Patient subsequently underwent te mporary hemodialysis catheter placement. He also had a renal biopsy the results of which are suggesting diabetic nephropathy. He has been initiated on hemodia lysis per nephrology. Patient has also been having refractory headache for whic h neurology has been consulted. He has had uncontrolled blood pressure during h is stay and his home regimen have been adjusted. Given nephrolithiasis found on the CAT scan, urology was also consulted who has recommended conservative manag ement and outpatient follow-up. Problems addressed with today's visit include: * Acute kidney injury superimposed on chronic kidney disease (HCC) -Cr reported to be 1-1.3 in 04/2020 -Progressive worsening with signs of nephrotic syndrome -Status post right IJ temporary hemodialysis catheter placement ---> awaiting for this to be replaced to permanent line ? today -s/p renal biopsy, preliminary report suggesting possible diabetic nephropathy -Nephrology on board -Currently receiving hemodialysis per nephrology, plans for permacath placement Type 1 diabetes mellitus with hyperglycemia ([facility]) -A1C 12.4 on 11/26/20 -Resumed Levemir, dosing being adjusted -Additional sliding scale insulin coverage. - reviewing last 24 hrs and changes being made Nephrotic syndrome -Likely diabetic nephropathy -Per nephrology Urinary tract infection without hematuria -Blood cultures negative, urine cultures growing MSSA Had been changed to keflex 12/20, but ID agreed changing to cover sinuses and ma stoid bone - augmentin empirically. -Appreciate urology consult, no active intervention for nephrolithiasis Hypertension -Resumed home dose of amlodipine, Coreg, hydralazine -Continues to be suboptimally controlled, uptitrated the dose of amlodipine and subsequently hydralazine Mastoiditis of left side Chronic headache, hx of sinus infections, uncontrolled DM I - will treat as acut e infection. Discussed w ID, recommend Augmentin for now, will start 12/21 and m onitor Headache, unspecified headache type -With sinus tenderness -CT head consistent with mastoiditis -Already on Ancef -Continues to have refractory headache, appreciate neurology recommendations Dyslipidemia -Resumed home statin Nephrolithiasis -Urology recommended outpatient follow-up Anemia -Could be related to renal disease iron studies unremarkable -EPO given per nephrology -Transfuse to keep hemoglobin more than 7 See my orders for additional details regarding this patients treatment plan. Expected Discharge Date The patient's predicted discharge date is 12/22/2020, but this doesn't guarantee a discharge on this date. Anticipated Discharge Destination The patient's anticipated discharge destination is [facility]. Room: [address] [place] [address] Diet: Diet-Hemodialysis, Consistent Carbohydrate VTE Prevention: Appropriate VTE chemical treatment ordered. Appropriate VTE mec hanical treatment ordered. Code Status: Full Code Yanez Catheter: N/A Scheduled Meds: amLODIPine 10 mg Oral Daily amoxicillin-clavulanate 1 tablet Oral Daily atorvastatin 20 mg Oral Nightly calcium acetate(phosphat bind) 1,334 mg Oral TID with meals caRVEDILoL 6.25 mg Oral BID with meals epoetin nnamdi-epbx (RETACRIT) injection 100 Units/kg Subcutaneous Q MWF gabapentin 200 mg Oral TID heparin (porcine) 1,000-5,000 Units Intra-Catheter Once in dialysis hydrALAZINE 100 mg Oral Q8H insulin glargine 8 Units Subcutaneous Nightly insulin lispro 2-7 Units Subcutaneous 4 times daily before meals and nightl y lactobacillus 1 capsule Oral Daily losartan 100 mg Oral Daily multiple vitamins B complex with C 1 tablet Oral QPM QUEtiapine 50 mg Oral Nightly sertraline 100 mg Oral Daily trazodone 100 mg Oral Nightly Continuous Infusions: PRN Meds: acetaminophen, ALPRAZolam, locdacoeuo-ivtpzlzgczfwe-zslgasct, cyclobenzaprine, d extrose 50%, glucagon OR glucagon, glucose, magnesium sulfate, ondansetron, sodium chloride 0.9%, tramadoL Temitope Horton MD [facility] Medicine Division . * ELAYNE LaneP - 12/21/2020 11:16 AM CDT NEUROLOGY PROGRESS NOTE Patient: Sommer Callahan : 1975 PCP: Carmelita Avila APRN LOS: 9 CHIEF COMPLAINT Follow up on headache INTERVAL HISTORY History is provided via: patient, chart review Visitors at the bedside: none Patient headache is better and has no headache at the time of visit. MRI of the head without contrast showed no acute hemorrhage, mass-effect or shif t is seen with mild scattered white matter ischemic change. Old infarcts are se en in the posterior circulation especially in the left occipital lobe with evide nce of remote hemorrhage. Also noted include extensive mastoid fluid and middle ear fluid compatible with otitis media and mastoiditis on the left. Mild to mo derate mastoid fluid also seen in the right with moderate peripheral left maxill jennie mucosal thickening seen. REVIEW OF SYSTEMS 5 point review of systems negative except as noted in history as above MEDICATIONS amLODIPine 10 mg Oral Daily amoxicillin-clavulanate 1 tablet Oral Daily atorvastatin 20 mg Oral Nightly calcium acetate(phosphat bind) 1,334 mg Oral TID with meals caRVEDILoL 6.25 mg Oral BID with meals epoetin nnamdi-epbx (RETACRIT) injection 100 Units/kg Subcutaneous Q MWF gabapentin 200 mg Oral TID heparin (porcine) 1,000-5,000 Units Intra-Catheter Once in dialysis hydrALAZINE 100 mg Oral Q8H insulin glargine 8 Units Subcutaneous Nightly insulin lispro 2-7 Units Subcutaneous 4 times daily before meals and nightl y lactobacillus 1 capsule Oral Daily losartan 100 mg Oral Daily multiple vitamins B complex with C 1 tablet Oral QPM QUEtiapine 50 mg Oral Nightly sertraline 100 mg Oral Daily trazodone 100 mg Oral Nightly valproate sodium 500 mg Intravenous Q8H ANA acetaminophen, ALPRAZolam, wepywcogaw-djkrymuvvzgaw-linvnbrd, cyclobenzaprine, d extrose 50%, glucagon OR glucagon, glucose, magnesium sulfate, ondansetron, sodium chloride 0.9%, tramadoL PHYSICAL EXAMINATION Patient Vitals for the past 4 hrs: BP Temp Temp src Pulse Resp SpO2 12/21/20 1054 (!) 147/71 38 C (100.4 F) Oral 87 18 95 % 12/21/20 0755 119/73 37.7 C (99.8 F) Oral 86 18 95 % Systolic (24hrs), Av , Min:119 , Max:176 Diastolic (24hrs), Av, Min:68, Max:100 Ht Readings from Last 1 Encounters: 12/13/20 1.778 m (5' 10") Wt Readings from Last 1 Encounters: 12/21/20 88.6 kg (195 lb 4.8 oz) Body mass index is 28.02 kg/m. Alert and oriented. No abnormalities in speech or comprehension. STUDIES REVIEWED CT Abdomen Pelvis wo contrast Result Date: 11/26/2020 1. Moderate bladder wall thickening is nonspecific. Correlate clinically as to p ossible cystitis. 2. Tiny nonobstructing calculus in the lower pole of the left kidney. Otherwise normal kidneys bilaterally. 3. Mild retroperitoneal aortic lym phadenopathy. These are nonspecific and could be reactive.. CT Head wo contrast Result Date: 12/13/2020 Impression: 1. Old area of encephalomalacia in the left parietal-occipital regio n. 2. There is some fluid in the left mastoid air cells. One or more of the foll owing dose reduction techniques were utilized: *Automated exposure control (AEC) *Adjustment of mA and/or kV according to patient size -Use of iterative reconst ruction technique -CT scan done according to AUBREY, or AUBREY/IMAGE GENTLY IR Non Tunneled Dialysis catheter placement Result Date: 12/13/2020 Successful placement of right internal jugular triple-lumen temporary hemodialys is catheter. 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 Mild to moderate mastoid fluid also seen in the right with moderate periph eral left maxillary mucosal thickening seen. US Duplex Renal complete Result Date: 11/28/2020 Impression: No sonographic findings to suggest renal artery stenosis or vascular pathology such as aneurysm. Please see report of ultrasound of the kidneys of B[place]y rodolfo 2020 for further discussion. US Renal complete Result Date: 11/26/2020 1. There is a benign-appearing 1.3 cm left renal cyst. 2. No hydronephrosis. 3. Abnormal urinary bladder with wall thickening and increased vascularity. This is nonspecific. Cystitis is not excluded. US Scrotal Result Date: 12/13/2020 1. 4 mm x 3 mm x 4 mm right epididymal cyst. 2. Otherwise, negative ultrasound o f the scrotum and testicles bilaterally. XR Chest 2 views (PA and lateral) Result Date: 12/18/2020 Moderate acute pneumonia left lower lobe with small effusion. Mild parahilar ate lectasis on the right. Double-lumen catheter placement from a jugular approach w ith the tip overlying the right atrium without pneumothorax on the right XR Chest single view frontal Result Date: 12/12/2020 No evidence of acute cardiopulmonary disease. US Guided Biopsy Kidney Addendum Date: 12/17/2020 ++++++++++++++++++++++++++++++++++++++ADDENDUM+++++++++++++++++++++++++++++ Ad dendum: I was called by nursing report left flank pain and hematuria. I checked on the patient twice this afternoon. He appears to have moderate hematuria with dark reddish dilute urine. Nursing reported very small clots in the bottom of hi s urine bottle although I was unable to visualize these. The patient is able to urinate. The patient does not subjectively appear to be in distress. He does rep ort moderate left flank pain. At this point, we will encourage fluid intake and monitor. Pain is not increasing per report. Hematuria is a fairly frequent occur rence following renal biopsy and tends to clear. If it is not clearing or pain i s increasing, we may pursue additional imaging to assess for perinephric hematom a or for the amount of blood in the renal collecting system. If possible, we wou ld like to avoid embolization. This was discussed with the patient and his quest ions were answered. Signed (Authenticated, Released) Date/Time 12/17/2020 170 +++++++++++++++++++++++++++++++++++++++++++++++++++++++++++++++++++++++++++ Result Date: 12/17/2020 Successful ultrasound-guided core needle biopsy of the left kidney as described. Preprocedure: Risk, benefits, and alternatives were discussed in detail with th e patient. He agreed to proceed. Procedural pause performed in the presence of a ll assisting personnel. Conscious sedation supplied by a nurse under my supervis ion (a trained professional in conscious sedation) for 20 minutes with appropria te physiologic monitoring including heart rate monitor, blood pressure monitor, oxygen saturation monitor, and continuous nursing assessment. Conscious sedation achieved with Versed and fentanyl. IR Tunneled Dialysis catheter check Result Date: 12/17/2020 Successful repositioning of right IJ temporary hemodialysis catheter. Echo Congenital Complete with Doppler and Color Flow Result Date: 11/27/2020 1. Lower limits normal left ventricular systolic function, with a calculated e jection fraction by 3D echo of 53%. 2. Moderate to severe concentric left vent ricular hypertrophy. 3. Abnormal global longitudinal myocardial strain. -14 (E piq) 4. No significant valvular abnormalities. 5. No previous study availabl e for comparison. Yao Gomez MD (Electronically Signed) Final Date: 07 November 2020 11:06 No results found. LABS REVIEWED Most Recent Result within the last 7 days Lab Units 12/21/20 0420 WBC TH/uL 8.31 HEMOGLOBIN g/dL 7.2* HEMATOCRIT % 22* PLATELET COUNT TH/uL 207 % SEGMENTED NEUTROPHILS % 67 % LYMPHOCYTES % 18 % MONOCYTES % 10 % EOSINOPHILS % 4 % BASOPHILS % 1 SODIUM MEQ/L 136 POTASSIUM MEQ/L 3.4* CHLORIDE MEQ/L 101 CARBON DIOXIDE MEQ/L 32 BLOOD UREA NITROGEN mg/dL 22 GLUCOSE mg/dL 165* CREATININE mg/dL 3.0* CALCIUM mg/dL 7.9* PHOSPHORUS mg/dL 4.0 ALBUMIN g/dL 2.4* Most Recent Result within the last 7 days Lab Units 12/20/20 1248 SED RATE mm/h 125* IMPRESSION 1. Mr. Barger is a 45-year-old right-handed male with persistent left-sided hea dache. Headache is significantly improved and no headache at the time of visit. Brain MRI showed otitis media and mastoiditis on the left which could be contrib uting to his headache. His headache was with photophobia and began about 6 days ago with minimal benefit from Fioricet, hydrocodone and tramadol. He started g etting headaches in his 30s occurring once or twice a month but his headache inc reased in the past 2 months occurring 5 days a week lasting up to 3 to 4 days wi th accompanying nausea, photophobia and osmophobia, felt on the left side at the front, top and back headache with left-sided neck pain. CT scan of the brain showed old area of encephalomalacia in the left parietal -occipital region. MRI of the head without contrast showed no acute hemorrhage, mass-effect or s hift is seen with mild scattered white matter ischemic change. Old infarcts are seen in the posterior circulation especially in the left occipital lobe with ev idence of remote hemorrhage. Also noted include extensive mastoid fluid and mid dle ear fluid compatible with otitis media and mastoiditis on the left. Mild to moderate mastoid fluid also seen in the right with moderate peripheral left max illary mucosal thickening seen. ESR: 125 . Patient has anemia, mastoiditis and otitis media 2. Neck pain. Per patient, his orthopedist in [facility] told him that his disc is messed up and recommended shots but he declined. On clinical examin ation, he has a head forward position, internal rotation of shoulders, left subo ccipital tenderness, bilateral cervical paraspinous muscle spasm and tenderness worse on the left and bilateral shoulder muscle spasm and tenderness. 3. 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 No residual from his stroke. On aspirin 81 mg daily and atorvastatin 20 mg. Treated and evaluated at [facility]. Work-up at [facility] MRI head was obtained and showed moderate-sized acute or early subacute posterio r left parieto-occipital infarct (posterior cerebral watershed distribution) wit h associated petechial hemorrhage and mixed cytotoxic and vasogenic edema. CTA head and neck was obtained and was unremarkable for significant intracranial atherosclerosis. 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 TTE/TRINA were obtained and showed: EF 65%, no evidence of left atrial enlargement or Afib, no evidence of valvular thrombus, small PFO which is likely clinically insignificant since patient has other uncontrolled vascular risk factors to exp elmira his stroke. Hypercoagulable workup was negative. 4. History of provoked seizures felt secondary to metabolic abnormalities and s troke on 03/02/2019. Treated with Keppra 500 mg twice a day which has been discon tinued. 5. Advanced diabetic nephropathy. 6. Type 1 diabetes mellitus. A1c 12.4 on 11/26/2020 7. Urinary tract infection. 8. Hypertension 9. Anemia. Hemoglobin 7.2 hematocrit 22 RECOMMENDATIONS Otitis media and mastoiditis noted on MRI which could be contributory to his headache. Management per primary care team/infectious disease. Continue Depacon every 8 hours. He will benefit from outpatient physical therapy to the neck due to the prese nce of left suboccipital tenderness, bilateral cervical paraspinous muscle spasm and tenderness worse on the left and bilateral shoulder muscle spasm and tender ness. Holley Zavala, 12/21/2020 11:16 AM Voalte [phone] PPE Statement: DANIELA Lane used Yellow precautions (Level 1 mask worn ov er level 3 mask and gloves). I examined the patient, reviewed the chart, laboratory investigations, radiologi c investigations, guided ON CALL PHARMACY TECHNICIAN Headache improved. MRI head -otitis media and mastoiditis I agree with findings, assessment, plan, recommendation by ON CALL PHARMACY TECHNICIAN. PPE Statement: Briana Nevarez MD used Green precautions (Level 1 mask, eye pro tection, and gloves). Principal Problem: Acute kidney injury superimposed on chronic kidney disease (HCC) Active Problems: Type 1 diabetes mellitus with hyperglycemia (HCC) Hypertension Urinary tract infection without hematuria Anemia Nephrolithiasis Dyslipidemia Nephrotic syndrome Headache, unspecified headache type Addendum: Per Dr. Nevarez, discontinue Depacon. Neurology will sign off. Recons ult if needed. * Kun Stanton MD - 12/21/2020 11:03 AM CDT [facility] Infectious Disease Comprehensive Progress Note PATIENT NAME: Sommer Callahan DATE: 12/21/2020 AGE: 45 y.o. :[birth year] Subjective: Has had recurrent left temporal-parietal headaches. Afebrile. ANTIBIOTICS Principal Problem: Acute kidney injury superimposed on chronic kidney disease (HCC) Active Problems: Type 1 diabetes mellitus with hyperglycemia (HCC) Hypertension Urinary tract infection without hematuria Anemia Nephrolithiasis Dyslipidemia Nephrotic syndrome Headache, unspecified headache type Scheduled Medications: amLODIPine 10 mg Oral Daily atorvastatin 20 mg Oral Nightly calcium acetate(phosphat bind) 1,334 mg Oral TID with meals caRVEDILoL 6.25 mg Oral BID with meals cephalexin 500 mg Oral Daily epoetin nnamdi-epbx (RETACRIT) injection 100 Units/kg Subcutaneous Q MWF gabapentin 200 mg Oral TID heparin (porcine) 1,000-5,000 Units Intra-Catheter Once in dialysis hydrALAZINE 100 mg Oral Q8H insulin glargine 8 Units Subcutaneous Nightly insulin lispro 2-7 Units Subcutaneous 4 times daily before meals and nightl y lactobacillus 1 capsule Oral Daily losartan 100 mg Oral Daily multiple vitamins B complex with C 1 tablet Oral QPM QUEtiapine 50 mg Oral Nightly sertraline 100 mg Oral Daily trazodone 100 mg Oral Nightly valproate sodium 500 mg Intravenous Q8H ANA Continuous Infusions: Allergies Allergen Reactions Clindamycin Dizziness, Hypotension, Syncope and Hives Varenicline Hallucinations Patient notes experiencing hallucinations and mood changes w/ this medication. Opioids - Morphine Analogues Pt states morphine makes him aggressive and doesn't like taking it Metformin Abdominal Pain and Nausea And Vomiting Zolpidem Other reaction(s): sleep walking, UNKNOWN Intake/Output Summary (Last 24 hours) at 12/21/2020 1104 Last data filed at 12/21/2020 1015 Gross per 24 hour Intake 1560 ml Output 3578 ml Net -2018 ml I/O last 24 Hours: In: 900 [P.O.:900] Out: 600 [Urine:600] Wt Readings from Last 1 Encounters: 12/21/20 88.6 kg (195 lb 4.8 oz) ROS: 10 system review performed; pertinent positives and negatives listed above otherwise negative. Past medical, family and social history reviewed and is unchanged from initial I D note in chart. Diabetes Profile: Lab Results Component Value Date HGBA1C 12.4 (H) 11/26/2020 GLU 165 (H) 12/21/2020 GLU 161 (H) 12/20/2020 GLU 140 (H) 12/19/2020 Liver Profile: Lab Results Component Value Date ALT 20 12/12/2020 AST 21 12/12/2020 ALKPHOS 74 12/12/2020 Hematologic Profile: Most Recent Result within the last 7 days Lab Units 12/21/20 0420 12/20/20 0301 12/19/20 0330 12/18/20 0324 12/17/20 03212/16/20 0159 WBC TH/uL 8.31 8.05 8.24 7.53 5.84 6.88 HEMOGLOBIN g/dL 7.2* 7.2* 7.2* 7.0* 7.3* 7.1* HEMATOCRIT % 22* 22* 22* 22* 22* 22* PLATELET COUNT TH/uL 207 206 210 212 205 217 Metabolic Profile: Most Recent Result within the last 7 days Lab Units 12/21/20 0420 12/20/20 0301 12/19/20 0330 12/18/20 0324 12/17/20 03212/16/20 0159 SODIUM MEQ/L 136 134 133 134 135 134 POTASSIUM MEQ/L 3.4* 4.0 4.4 4.3 3.3* 3.7 CHLORIDE MEQ/L 101 101 101 101 105 104 CARBON DIOXIDE MEQ/L 32 32 31 31 33* 33* BLOOD UREA NITROGEN mg/dL 22 24 25 40* 36* 37* CREATININE mg/dL 3.0* 3.5* 3.6* 4.3* 3.7* 3.5* MRI Head wo contrast Result Date: 12/20/2020 Old infarcts are seen in the posterior [...] moderate peripheral left maxillary mucosal thickening seen. Images reviewed independently by me No lab components to display MICROBIOLOGY Results for orders placed or performed during the hospital encounter of 12/12/20 Culture, Urine Collection Time: 12/12/20 5:47 PM Specimen: Clean Voided Urine - Isolate 1 >100,000 Cfu/ml (A) Isolate 1 Methicillin Sensitive Staphylococcus aureus (A) Susceptibility Methicillin sensitive staphylococcus aureus - (no method available) OXACILLIN 0.5 Sensitive LINEZOLID 2 Sensitive NITROFURANTOIN <=16 Sensitive SEPTRA/BACTRIM <=10 Sensitive VANCOMYCIN 1.0 Sensitive Culture, Blood Collection Time: 12/12/20 7:36 PM Specimen: Blood - Culture Result No Growth at 5 days Culture, Blood Collection Time: 12/12/20 7:50 PM Specimen: Blood - Culture Result No Growth at 5 days Physical Exam: Temp: [36.2 C (97.1 F)-38 C (100.4 F)] 38 C (100.4 F) Pulse: [78-91] 87 Resp: [18] 18 BP: (119-176)/(68-100) 147/71 General Appearance: no acute distress. Eyes: no scleral icterus, or conjunctival hemorrhage. HEENT: no sinus tenderness, no oral thrush. SKIN: no rashes or pathologic lesions. Lymphatic: no palpable cervical axillary or inguinal lymph nodes. Heart: Normal s1 s2, no audible murmurs. Lungs: clear to auscultations without wheezing or rales. MUSCULOSKELETAL:examined joints without effusion, normal ROM. NEUROLOGIC: grossly non focal. : no suprapubic tenderness or fullness, no external lesions, no CVA tenderness . ABDOMEN: soft, non tender, no rebound or guarding present bowel sounds, no palpa ble masses. PSYCHIATRIC: alert, oriented, no changes of anxiety or depression. Assessment/Plan: 1. MSSA pyelonephritis of right kidney,improved 2. Extensive left mastoiditis with otitis media - may be contributing to his h eadaches 3. Acute kidney injury superimposed on chronic kidney disease; now on hemodial ysis 4. History of occipital cerebrovascular accident (remote) 5. Status post appendectomy 6. Intolerance of clindamycin 7. Poorly controlled diabetes mellitus Plan 1.Switch from cephalexin to po Augmentin 2. OK for Permacath from my perspective Discussed with Dr. Horton Electronically signed by Kun Stanton 12/21/2020 11:04 AM * Trudi Javed LMSW - 12/21/2020 10:59 AM CDT [facility] has not accepted Sommer, but they called to say they have a 12:30 p.m. chair. Called [facility] in [place], they do not have a 1st shift lester r. Their earliest is 11:00 a.m. Called [facility]. They have a 6:00 a. m. chair. Their PD clinic is in [place]. Called Sommer and reviewed the above. He w ants to stick with [place]. Called Yenny back at [facility] and provided his SS# so they can verify his insurance. Michael Regalado Dialysis Coordinator [phone] * Trudi Javed LMSW - 12/21/2020 9:40 AM CDT Notified by the RN MARIA T that Sommer needs an OP dialysis clinic. Reviewed Dr. Hseih' s most recent note. Texted Dr. Hsieh to clarify if Sommer is VALERIE or ESRD. Called nery brooks of Dr. Hsieh's clinics to check availability. The following are full: Misty, Elias Moore. Dr. Hsieh explained Sommer is not a candidate for a PD cat heter at this moment due to an infection. Called Sommer. Explained my role. Educa bakari about [facility] and [facility]. Educated about dialysis companies and the relat ionship between nephrologists and clinics. Sommer works 1:00 p.m. to 9:00 p.m. H hank lives in [facility]. Sommer is inclined to select PD as his watermaster dialysis [facility]. After a lengthy discussion, Sommer selected [facility]. Sent records via [employer] to [facility]. Asked for a return call to confirm they received the records. Will follow up by 10:15 if I haven't heard from them. Michael Regalado Dialysis Coordinator [phone] * Kun Stanton MD - 12/20/2020 5:29 PM CDT [facility] Infectious Disease Comprehensive Progress Note PATIENT NAME: Sommer Meanor DATE: 12/20/2020 AGE: 45 y.o. :[birth year] Subjective: Alert. No new symptoms. Afebrile. ANTIBIOTICS Principal Problem: Acute kidney injury superimposed on chronic kidney disease (HCC) Active Problems: Type 1 diabetes mellitus with hyperglycemia (HCC) Hypertension Urinary tract infection without hematuria Anemia Nephrolithiasis Dyslipidemia Nephrotic syndrome Headache, unspecified headache type Scheduled Medications: amLODIPine 10 mg Oral Daily atorvastatin 20 mg Oral Nightly calcium acetate(phosphat bind) 1,334 mg Oral TID with meals caRVEDILoL 6.25 mg Oral BID with meals cefazolin 1 g Intravenous Daily [START ON 12/21/2020] epoetin nnamdi-epbx (RETACRIT) injection 100 Units/kg S ubcutaneous Q MWF gabapentin 200 mg Oral TID heparin (porcine) 1,000-5,000 Units Intra-Catheter Once in dialysis hydrALAZINE 100 mg Oral Q8H insulin glargine 8 Units Subcutaneous Nightly insulin lispro 2-7 Units Subcutaneous 4 times daily before meals and nightl y lactobacillus 1 capsule Oral Daily losartan 100 mg Oral Daily multiple vitamins B complex with C 1 tablet Oral QPM QUEtiapine 50 mg Oral Nightly sertraline 100 mg Oral Daily sodium chloride 0.9 % trazodone 100 mg Oral Nightly valproate sodium 500 mg Intravenous Q8H ANA Continuous Infusions: Allergies Allergen Reactions Clindamycin Dizziness, Hypotension, Syncope and Hives Varenicline Hallucinations Patient notes experiencing hallucinations and mood changes w/ this medication. Opioids - Morphine Analogues Pt states morphine makes him aggressive and doesn't like taking it Metformin Abdominal Pain and Nausea And Vomiting Zolpidem Other reaction(s): sleep walking, UNKNOWN Intake/Output Summary (Last 24 hours) at 12/20/2020 1729 Last data filed at 12/20/2020 1318 Gross per 24 hour Intake 670 ml Output 2978 ml Net -2308 ml I/O last 24 Hours: In: 670 [P.O.:370; Other:300] Out: 2978 [Urine:1900; Other:1078] Wt Readings from Last 1 Encounters: 12/20/20 88.6 kg (195 lb 5.2 oz) ROS: 10 system review performed; pertinent positives and negatives listed above otherwise negative. Past medical, family and social history reviewed and is unchanged from initial I D note in chart. Diabetes Profile: Lab Results Component Value Date HGBA1C 12.4 (H) 11/26/2020 GLU 161 (H) 12/20/2020 GLU 140 (H) 12/19/2020 GLU 120 (H) 12/18/2020 Liver Profile: Lab Results Component Value Date ALT 20 12/12/2020 AST 21 12/12/2020 ALKPHOS 74 12/12/2020 Hematologic Profile: Most Recent Result within the last 7 days Lab Units 12/20/20 0301 12/19/20 0330 12/18/20 0324 12/17/20 0321 12/16/20 0159 12/14/20 0300 WBC TH/uL 8.05 8.24 7.53 5.84 6.88 5.38 HEMOGLOBIN g/dL 7.2* 7.2* 7.0* 7.3* 7.1* 7.4* HEMATOCRIT % 22* 22* 22* 22* 22* 24* PLATELET COUNT TH/uL 206 210 212 205 217 216 Metabolic Profile: Most Recent Result within the last 7 days Lab Units 12/20/20 0301 12/19/20 0330 12/18/20 0324 12/17/20 0321 12/16/20 0159 12/14/20 0300 SODIUM MEQ/L 134 133 134 135 134 136 POTASSIUM MEQ/L 4.0 4.4 4.3 3.3* 3.7 4.6 CHLORIDE MEQ/L 101 101 101 105 104 114* CARBON DIOXIDE MEQ/L 32 31 31 33* 33* 19* BLOOD UREA NITROGEN mg/dL 24 25 40* 36* 37* 41* CREATININE mg/dL 3.5* 3.6* 4.3* 3.7* 3.5* 4.0* XR Chest 2 views (PA and lateral) Result Date: 12/18/2020 Moderate acute pneumonia left lower lobe with small effusion. Mild parahilar atelectasis on the right. Double-lumen catheter placement from a jugular approach with the tip overlying the right atrium without pneumothorax on the right Images reviewed independently by me No lab components to display MICROBIOLOGY Results for orders placed or performed during the hospital encounter of 12/12/20 Culture, Urine Collection Time: 12/12/20 5:47 PM Specimen: Clean Voided Urine - Isolate 1 >100,000 Cfu/ml (A) Isolate 1 Methicillin Sensitive Staphylococcus aureus (A) Susceptibility Methicillin sensitive staphylococcus aureus - (no method available) OXACILLIN 0.5 Sensitive LINEZOLID 2 Sensitive NITROFURANTOIN <=16 Sensitive SEPTRA/BACTRIM <=10 Sensitive VANCOMYCIN 1.0 Sensitive Culture, Blood Collection Time: 12/12/20 7:36 PM Specimen: Blood - Culture Result No Growth at 5 days Culture, Blood Collection Time: 12/12/20 7:50 PM Specimen: Blood - Culture Result No Growth at 5 days Physical Exam: Temp: [36.2 C (97.1 F)-37.4 C (99.3 F)] 36.2 C (97.1 F) Pulse: [84-93] 90 Resp: [18-26] 18 BP: (135-176)/(72-100) 176/100 General Appearance: no acute distress. Eyes: no scleral icterus, or conjunctival hemorrhage. HEENT: no sinus tenderness, no oral thrush. SKIN: no rashes or pathologic lesions. Lymphatic: no palpable cervical axillary or inguinal lymph nodes. Heart: Normal s1 s2, no audible murmurs. Lungs: clear to auscultations without wheezing or rales. MUSCULOSKELETAL:examined joints without effusion, normal ROM. NEUROLOGIC: grossly non focal. : no suprapubic tenderness or fullness, no external lesions, no CVA tenderness . ABDOMEN: soft, non tender, no rebound or guarding present bowel sounds, no palpa ble masses. PSYCHIATRIC: alert, oriented, no changes of anxiety or depression. Assessment/Plan: 1. MSSA pyelonephritis of right kidney,improved 2. Poorly controlled diabetes mellitus 3. Acute kidney injury superimposed on chronic kidney disease; now on hemodial ysis 4. History of cerebrovascular accident (remote) 5. Status post appendectomy 6. Intolerance of clindamycin Plan 1.Discontinue cefazolin 2. Begin po cephalexin 3. OK for Permacath from my perspective Discussed with Dr. Hsieh Electronically signed by Kun Stanton 12/20/2020 5:29 PM * Briana Nevarez MD - 12/20/2020 11:25 AM CDT NEUROLOGY PROGRESS NOTE Patient: Sommer Callahan : 1975 PCP: Carmelita [facility] APRN LOS: 8 CHIEF COMPLAINT Follow up on refractory headache INTERVAL HISTORY History is provided via: patient Visitors at the bedside: none Patient is currently doing hemodialysis. He reports minimal benefit from Depacon . REVIEW OF SYSTEMS 5 point review of systems negative except as noted in history as above MEDICATIONS amLODIPine 10 mg Oral Daily atorvastatin 20 mg Oral Nightly calcium acetate(phosphat bind) 1,334 mg Oral TID with meals caRVEDILoL 6.25 mg Oral BID with meals cefazolin 1 g Intravenous Daily [START ON 12/21/2020] epoetin nnamdi-epbx (RETACRIT) injection 100 Units/kg Subc utaneous Q MWF gabapentin 200 mg Oral TID heparin (porcine) 1,000-5,000 Units Intra-Catheter Once in dialysis hydrALAZINE 100 mg Oral Q8H insulin glargine 8 Units Subcutaneous Nightly insulin lispro 2-7 Units Subcutaneous 4 times daily before meals and nightly lactobacillus 1 capsule Oral Daily losartan 100 mg Oral Daily multiple vitamins B complex with C 1 tablet Oral QPM QUEtiapine 50 mg Oral Nightly sertraline 100 mg Oral Daily sodium chloride 0.9 % trazodone 100 mg Oral Nightly acetaminophen, ALPRAZolam, lgzoxsyejg-abgikdurkbdjg-hsgxomuy, cyclobenzaprine, d extrose 50%, glucagon OR glucagon, glucose, HYDROcodone-acetaminophen, magne sium sulfate, ondansetron, tramadoL PHYSICAL EXAMINATION Patient Vitals for the past 4 hrs: BP Temp Temp src Pulse Resp SpO2 Weight 12/20/20 1115 (!) 163/86 90 18 96 % 12/20/20 1100 (!) 158/84 88 18 96 % 12/20/20 1045 (!) 151/81 84 18 97 % 12/20/20 1030 (!) 158/86 85 18 96 % 12/20/20 1015 (!) 162/85 86 18 97 % 12/20/20 1000 (!) 160/88 86 18 97 % 12/20/20 0945 (!) 159/86 87 18 97 % 12/20/20 0930 (!) 153/84 86 18 97 % 12/20/20 0915 (!) 158/85 88 18 97 % 12/20/20 0906 (!) 154/83 88 18 97 % 12/20/20 0858 (!) 150/82 37.1 C (98.8 F) Oral 87 18 91 % 12/20/20 0846 89.4 kg (197 lb 1.5 oz) Systolic (24hrs), Av , Min:124 , Max:166 Diastolic (24hrs), Av, Min:45, Max:89 Ht Readings from Last 1 Encounters: 12/13/20 1.778 m (5' 10") Wt Readings from Last 1 Encounters: 12/20/20 89.4 kg (197 lb 1.5 oz) Body mass index is 28.28 kg/m. Limited examination. Hemodialysis in progress. Patient is alert, oriented and ap propriate. No abnormalities in speech or comprehension. No facial asymmetry. STUDIES REVIEWED CT Abdomen Pelvis wo contrast Result Date: 11/26/2020 1. Moderate bladder wall thickening is nonspecific. Correlate clinically as to p ossible cystitis. 2. Tiny nonobstructing calculus in the lower pole of the left kidney. Otherwise normal kidneys bilaterally. 3. Mild retroperitoneal aortic lym phadenopathy. These are nonspecific and could be reactive.. CT Head wo contrast Result Date: 12/13/2020 Impression: 1. Old area of encephalomalacia in the left parietal-occipital regio n. 2. There is some fluid in the left mastoid air cells. One or more of the foll owing dose reduction techniques were utilized: *Automated exposure control (AEC) *Adjustment of mA and/or kV according to patient size -Use of iterative reconst ruction technique -CT scan done according to AUBREY, or AUBREY/IMAGE GENTLY IR Non Tunneled Dialysis catheter placement Result Date: 12/13/2020 Successful placement of right internal jugular triple-lumen temporary hemodialys is catheter. US Duplex Renal complete Result Date: 11/28/2020 Impression: No sonographic findings to suggest renal artery stenosis or vascular pathology such as aneurysm. Please see report of ultrasound of the kidneys of [place] rodolfo 2020 for further discussion. US Renal complete Result Date: 11/26/2020 1. There is a benign-appearing 1.3 cm left renal cyst. 2. No hydronephrosis. 3. Abnormal urinary bladder with wall thickening and increased vascularity. This is nonspecific. Cystitis is not excluded. US Scrotal Result Date: 12/13/2020 1. 4 mm x 3 mm x 4 mm right epididymal cyst. 2. Otherwise, negative ultrasound o f the scrotum and testicles bilaterally. XR Chest 2 views (PA and lateral) Result Date: 12/18/2020 Moderate acute pneumonia left lower lobe with small effusion. Mild parahilar ate lectasis on the right. Double-lumen catheter placement from a jugular approach w ith the tip overlying the right atrium without pneumothorax on the right XR Chest single view frontal Result Date: 12/12/2020 No evidence of acute cardiopulmonary disease. US Guided Biopsy Kidney Addendum Date: 12/17/2020 ++++++++++++++++++++++++++++++++++++++ADDENDUM+++++++++++++++++++++++++++++ Ad dendum: I was called by nursing report left flank pain and hematuria. I checked on the patient twice this afternoon. He appears to have moderate hematuria with dark reddish dilute urine. Nursing reported very small clots in the bottom of hi s urine bottle although I was unable to visualize these. The patient is able to urinate. The patient does not subjectively appear to be in distress. He does rep ort moderate left flank pain. At this point, we will encourage fluid intake and monitor. Pain is not increasing per report. Hematuria is a fairly frequent occur rence following renal biopsy and tends to clear. If it is not clearing or pain i s increasing, we may pursue additional imaging to assess for perinephric hematom a or for the amount of blood in the renal collecting system. If possible, we wou ld like to avoid embolization. This was discussed with the patient and his quest ions were answered. Signed (Authenticated, Released) Date/Time 12/17/2020 170 +++++++++++++++++++++++++++++++++++++++++++++++++++++++++++++++++++++++++++ Result Date: 12/17/2020 Successful ultrasound-guided core needle biopsy of the [...] Conscious sedation achieved with Versed and fentanyl. IR Tunneled Dialysis catheter check Result Date: 12/17/2020 Successful repositioning of right IJ temporary hemodialysis catheter. Echo Congenital Complete with Doppler and Color Flow Result Date: 11/27/2020 1. Lower limits normal left ventricular systolic function, with a calculated e jection fraction by 3D echo of 53%. 2. Moderate to severe concentric left vent ricular hypertrophy. 3. Abnormal global longitudinal myocardial strain. -14 (E piq) 4. No significant valvular abnormalities. 5. No previous study availabl e for comparison. Yao Gomez MD (Electronically Signed) Final Date: 07 November 2020 11:06 No results found. LABS REVIEWED Most Recent Result within the last 7 days Lab Units 12/20/20 0301 12/19/20 0330 WBC TH/uL 8.05 8.24 HEMOGLOBIN g/dL 7.2* 7.2* HEMATOCRIT % 22* 22* PLATELET COUNT TH/uL 206 210 % SEGMENTED NEUTROPHILS % -- 65 % LYMPHOCYTES % -- 17 % MONOCYTES % -- 14* % EOSINOPHILS % -- 3 % BASOPHILS % -- 1 SODIUM MEQ/L 134 133 POTASSIUM MEQ/L 4.0 4.4 CHLORIDE MEQ/L 101 101 CARBON DIOXIDE MEQ/L 32 31 BLOOD UREA NITROGEN mg/dL 24 25 GLUCOSE mg/dL 161* 140* CREATININE mg/dL 3.5* 3.6* CALCIUM mg/dL 8.1* 7.8* PHOSPHORUS mg/dL 4.5 4.0 ALBUMIN g/dL 2.4* 2.3* No lab components to display IMPRESSION 1. Mr. Barger is a 45-year-old right-handed male with persistent left-sided hea dache with photophobia that began 3 to 4 days ago with minimal benefit from Claudia icet, hydrocodone and tramadol. He started getting headaches in his 30s occurri ng once or twice a month but his headache increased in the past 2 months occurri ng 5 days a week lasting up to 3 to 4 days with accompanying nausea, photophobia and osmophobia, felt on the left side at the front, top and back headache with left-sided neck pain. He has never had a formal work-up for his headache. CT scan of the brain showed old area of encephalomalacia in the left parietal-oc cipital region. 2. Neck pain. Per patient, his orthopedist in [facility] told him that his disc is messed up and recommended shots but [facility] declined[facility] a head forward position, internal rotation of shoulders, left subo ccipital tenderness, bilateral cervical paraspinous muscle spasm and tenderness worse on the left and bilateral shoulder muscle spasm and tenderness. 3. 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 No residual from his stroke. On aspirin 81 mg daily and atorvastatin 20 mg. Treated and evaluated at [facility]. Work-up at [facility] MRI head was obtained and showed moderate-sized acute or early subacute posterio r left parieto-occipital infarct (posterior cerebral watershed distribution) wit h associated petechial hemorrhage and mixed cytotoxic and vasogenic edema. CTA head and neck was obtained and was unremarkable for significant intracranial atherosclerosis. 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 TTE/TRINA were obtained and showed: EF 65%, no evidence of left atrial enlargement or Afib, no evidence of valvular thrombus, small PFO which is likely clinically insignificant since patient has other uncontrolled vascular risk factors to exp elmira his stroke. Hypercoagulable workup was negative. 4. History of provoked seizures felt secondary to metabolic abnormalities and s troke on 03/02/2019. Treated with Keppra 500 mg twice a day which has been discon tinued. 5. Advanced diabetic nephropathy. 6. Type 1 diabetes mellitus. A1c 12.4 on 11/26/2020 7. Urinary tract infection. 8. Hypertension 9. Anemia. Hemoglobin 7.2 hematocrit 22 RECOMMENDATIONS MRI of the brain Depacon 500mg IV q8 hours He will benefit from outpatient physical therapy to the neck due to the presence of left suboccipital tenderness, bilateral cervical paraspinous muscle spasm and tenderness worse on the left and bilateral shoulder muscle spasm and tenderness. Holley Zavala, 12/20/2020 11:26 AM Voalte [phone] PPE Statement: DANIELA Lane used Yellow precautions (Level 1 mask worn ov er level 3 mask and gloves). I examined the patient, reviewed the chart, laboratory investigations, radiologi c investigations, guided ON CALL PHARMACY TECHNICIAN. Toxic metabolic encephalopathy with renal failure ,old left parieto-occipital in farcts . With persistent left-sided headache...CT head old infarct with encepha lomalacia. Recommend -sed rate. Reviewed findings, assessment, plan, recommendation by ON CALL PHARMACY TECHNICIAN. PPE Statement: Briana Nevarez MD used Green precautions (Level 1 mask, eye pro tection, and gloves). Principal Problem: Acute kidney injury superimposed on chronic kidney disease (HCC) Active Problems: Type 1 diabetes mellitus with hyperglycemia (HCC) Hypertension Urinary tract infection without hematuria Anemia Nephrolithiasis Dyslipidemia Nephrotic syndrome Headache, unspecified headache type * Bruce Samayoa MD - 12/20/2020 10:23 AM CDT [facility] Patient Name: Sommer Callahan Account No: [id number] Date of : 1975 Date of Admission: 12/12/2020 5:55 PM Subjective Follow up regarding acute kidney injury. He is currently undergoing hemodialysi s. Patient still having 4-5 out of 10 headache. ROS Pertinent positives: Headache, left earache, generalized weakness Pertinent negatives: Fever, chills, dysuria All other systems reviewed and are negative. Objective Vital Signs: Temp: 37.1 C (98.8 F) Pulse: 86 Resp: 18 BP: (!) 162/85 SpO2: 9 7 % Height: 177.8 cm (5' 10") Weight: 89.4 kg (197 lb 1.5 oz) I/O last 24 Hours: In: 250 [P.O.:250] Out: 900 [Urine:900] Physical Exam Constitutional: Appearance: Normal appearance. HENT: Head: Comments: Bilateral frontal and mastoid sinus tenderness present Neck: Comments: Temporary hemodialysis catheter Cardiovascular: Rate and Rhythm: Normal rate and regular rhythm. Pulses: Normal pulses. Heart sounds: Normal heart sounds. Pulmonary: Effort: Pulmonary effort is normal. Breath sounds: Normal breath sounds. Neurological: General: No focal deficit present. Mental Status: He is alert and oriented to person, place, and time. Mental st atus is at baseline. I have personally reviewed the patient's vital signs, laboratory/pathology/cultu re results (as indicated), imaging studies (results were not discussed with the performing provider), current inpatient medications and telecommunications support notes with pertainent findings noted within the assessment/plan. I have personally reviewe d the patient's past medical, surgical, family, or social history and there were no changes reported. Assessment/Plan Mr. Sommer Callahan is a 45 y.o. male who was admitted on 12/12/2020 with complaint of Abdominal Pain. Problems addressed with today's visit include: * Acute kidney injury superimposed on chronic kidney disease (HCC) -Cr reported to be 1-1.3 in 04/2020 -Progressive worsening with signs of nephrotic syndrome -Status post right IJ temporary hemodialysis catheter placement -s/p renal biopsy, preliminary report suggesting possible diabetic nephropathy -Nephrology on board -Currently receiving hemodialysis per nephrology, plans for permacath placement Type 1 diabetes mellitus with hyperglycemia ([facility]) -A1C 12.4 on 11/26/20 -Resumed Levemir, dosing being adjusted -Additional sliding scale insulin coverage. Nephrotic syndrome -Likely diabetic nephropathy -Per nephrology Urinary tract infection without hematuria -Blood cultures negative, urine cultures growing MSSA -Continue Ancef per ID -Appreciate urology consult, no active intervention for nephrolithiasis Hypertension -Resumed home dose of amlodipine, Coreg, hydralazine -Continues to be suboptimally controlled, uptitrated the dose of amlodipine and subsequently hydralazine Headache, unspecified headache type -With sinus tenderness -CT head consistent with mastoiditis -Already on Ancef -Continues to have refractory headache, appreciate neurology recommendations Dyslipidemia -Resumed home statin Nephrolithiasis -Urology recommended outpatient follow-up Anemia -Could be related to renal disease iron studies unremarkable -EPO given per nephrology -Transfuse to keep hemoglobin more than 7 See my orders for additional details regarding this patients treatment plan. Expected Discharge Date The patient's predicted discharge date is 12/22/2020, but this doesn't guarantee a discharge on this date. Anticipated Discharge Destination The patient's anticipated discharge destination is [facility]. Room: [address] [place] [address] Diet: Diet-Hemodialysis, Consistent Carbohydrate Diet NPO VTE Prevention: Appropriate VTE mechanical treatment ordered. Code Status: Full Code Yanez Catheter: N/A Scheduled Meds: amLODIPine 10 mg Oral Daily atorvastatin 20 mg Oral Nightly calcium acetate(phosphat bind) 1,334 mg Oral TID with meals caRVEDILoL 6.25 mg Oral BID with meals cefazolin 1 g Intravenous Daily [START ON 12/21/2020] epoetin nnamdi-epbx (RETACRIT) injection 100 Units/kg S ubcutaneous Q MWF gabapentin 200 mg Oral TID heparin (porcine) 1,000-5,000 Units Intra-Catheter Once in dialysis hydrALAZINE 100 mg Oral Q8H insulin glargine 8 Units Subcutaneous Nightly insulin lispro 2-7 Units Subcutaneous 4 times daily before meals and nightl y lactobacillus 1 capsule Oral Daily losartan 100 mg Oral Daily multiple vitamins B complex with C 1 tablet Oral QPM QUEtiapine 50 mg Oral Nightly sertraline 100 mg Oral Daily sodium chloride 0.9 % trazodone 100 mg Oral Nightly Continuous Infusions: PRN Meds: acetaminophen, ALPRAZolam, bxmfpmjhor-mzpzmvkpusytc-kaxchrks, cyclobenzaprine, d extrose 50%, glucagon OR glucagon, glucose, HYDROcodone-acetaminophen, magne sium sulfate, ondansetron, tramadoL Bruce Samayoa MD [facility] Medicine Division . * Carlos Hsieh MD - 12/20/2020 10:02 AM CDT [facility] PROCEDURE NOTE MD Mike Brown MD Achal Desai, MD Kristine Herron, MD Richard Schumacher Suleiman Daifallah, MD Archana Goel MD Encounter Date: 12/20/2020 10:02 AM Patient Demographic Information: Patient Name: Sommer Callahan Age: 45 y.o. Sex: male Date of : 1975 Current Admission: Admit Date: 12/12/2020 Admitting Physician: Krys Man MD Length of Stay: 8 Days Note Author: Carlos Hsieh Asked to see patient for: ARF/ CKD stage IV possible ESRD Fluid and Elect rolytes mangement Anemia in the setting of Renal Failure Patient Active Problem List Diagnosis SNOMED CT(R) VALERIE (acute kidney injury) (HCC) ACUTE INJURY OF KIDNEY Type 1 diabetes mellitus with hyperglycemia (HCC) HYPERGLYCEMIA DUE TO TYPE 1 DIABETES MELLITUS Hypertension HYPERTENSIVE DISORDER Vaccine counseling COUNSELING PROCEDURE WITH EXPLICIT CONTEXT Depression DEPRESSIVE DISORDER Noncompliance with diabetes treatment NONCOMPLIANCE WITH TREATMENT Tobacco abuse 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 Urinary tract infection without hematuria URINARY TRACT INFECTIOUS DISEASE Acute kidney injury superimposed on chronic kidney disease (HCC) ACUTE RENAL FAILURE SYNDROME Anemia ANEMIA Nephrolithiasis KIDNEY STONE Dyslipidemia DYSLIPIDEMIA Nephrotic syndrome NEPHROTIC SYNDROME Headache, unspecified headache type HEADACHE CURRENT ACTIVE MEDICATIONS: amLODIPine 10 mg Oral Daily atorvastatin 20 mg Oral Nightly calcium acetate(phosphat bind) 1,334 mg Oral TID with meals caRVEDILoL 6.25 mg Oral BID with meals cefazolin 1 g Intravenous Daily gabapentin 200 mg Oral TID heparin (porcine) 1,000-5,000 Units Intra-Catheter Once in dialysis hydrALAZINE 100 mg Oral Q8H insulin glargine 8 Units Subcutaneous Nightly insulin lispro 2-7 Units Subcutaneous 4 times daily before meals and nightl y lactobacillus 1 capsule Oral Daily multiple vitamins B complex with C 1 tablet Oral QPM QUEtiapine 50 mg Oral Nightly sertraline 100 mg Oral Daily sodium chloride 0.9 % trazodone 100 mg Oral Nightly acetaminophen, ALPRAZolam, tzlzynthkb-lqzbhpuaawlyk-maefdgoy, cyclobenzaprine, d extrose 50%, glucagon OR glucagon, glucose, HYDROcodone-acetaminophen, magne sium sulfate, ondansetron, tramadoL Intake/Output Summary (Last 24 hours) at 12/20/2020 1002 Last data filed at 12/20/2020 0443 Gross per 24 hour Intake 1630 ml Output 3500 ml Net -1870 ml Blood Pressure: BP: (!) 159/86 Pulse: Pulse: 87 Temperature: Temp: 37.1 C (98.8 F) Respirations: Resp: 18 Admission Weight: Weight: 88.5 kg (195 lb) O2 Saturation: SpO2: 97 % Today's Weight: Weight: 89.4 kg (197 lb 1.5 oz) BMI: Body mass index is 28.28 kg /m. Most Recent Result within the last 7 days Lab Units 12/20/20 0301 12/19/20 0330 12/18/20 0324 12/17/20 0321 12/16/20 0159 SODIUM MEQ/L 134 133 134 135 134 POTASSIUM MEQ/L 4.0 4.4 4.3 3.3* 3.7 CHLORIDE MEQ/L 101 101 101 105 104 CARBON DIOXIDE MEQ/L 32 31 31 33* 33* BLOOD UREA NITROGEN mg/dL 24 25 40* 36* 37* CREATININE mg/dL 3.5* 3.6* 4.3* 3.7* 3.5* GLUCOSE mg/dL 161* 140* 120* 127* 174* CALCIUM mg/dL 8.1* 7.8* 7.8* 7.9* 7.7* MAGNESIUM mg/dL -- -- 1.8 1.8 1.7 PHOSPHORUS mg/dL 4.5 4.0 5.9* 5.5* 5.2* Seen on dialysis; Tolerating treatment well so far Vitals on Dialysis at time of Visit: BP: 158 / 85 HR: 97 Afebrile PHYSICAL EXAM: Awake Oriented x 3 Lungs : CTA Nasim CVS: S1 S2 Edema: none Patient Active Problem List Diagnosis SNOMED CT(R) VALERIE (acute kidney injury) (HCC) ACUTE INJURY OF KIDNEY Type 1 diabetes mellitus with hyperglycemia (HCC) HYPERGLYCEMIA DUE TO TYPE 1 DIABETES MELLITUS Hypertension HYPERTENSIVE DISORDER Vaccine counseling COUNSELING PROCEDURE WITH EXPLICIT CONTEXT Depression DEPRESSIVE DISORDER Noncompliance with diabetes treatment NONCOMPLIANCE WITH TREATMENT Tobacco abuse 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 Urinary tract infection without hematuria URINARY TRACT INFECTIOUS DISEASE Acute kidney injury superimposed on chronic kidney disease (HCC) ACUTE RENAL FAILURE SYNDROME Anemia ANEMIA Nephrolithiasis KIDNEY STONE Dyslipidemia DYSLIPIDEMIA Nephrotic syndrome NEPHROTIC SYNDROME Headache, unspecified headache type HEADACHE ESRD v/s ARF/ CKD IV: HD today using: F 180NR for 3.0 hrs 2K 2.5Cal 140Na/ 35 HCO3 Qb 300-500 Qd 500+ Heparin 0 Units Uf 1 Kg or to pre-assigned OP Dry weight May use 25-50 gms albumin to maintain hemodynamic Stability Discussed plan and care with HD RN Permacath placement when OK with ID and IR Carlos Hsieh, 12/20/2020 10:02 AM * Carlos Hsieh MD - 12/19/2020 5:31 PM CDT [facility] - Progress Note MD Mike Brown MD Achal Desai, MD Kristine Herron, MD Richard Schumacher Suleiman Daifallah, MD Archana Goel MD Encounter Date: 12/19/2020 5:31 PM Patient Demographic Information: Patient Name: Sommer Gibsonor Age: 45 y.o. Sex: male Date of : 1975 Current Admission: Admit Date: 12/12/2020 Admitting Physician: Krys Man MD Length of Stay: 7 Days Note Author: Carlos Hsieh Asked to see patient for: ARF/ CKD stage III Fluid and Electrolytes mangemen t Patient Active Problem List Diagnosis SNOMED CT(R) VALERIE (acute kidney injury) (HCC) ACUTE INJURY OF KIDNEY Type 1 diabetes mellitus with hyperglycemia (HCC) HYPERGLYCEMIA DUE TO TYPE 1 DIABETES MELLITUS Hypertension HYPERTENSIVE DISORDER Vaccine counseling COUNSELING PROCEDURE WITH EXPLICIT CONTEXT Depression DEPRESSIVE DISORDER Noncompliance with diabetes treatment NONCOMPLIANCE WITH TREATMENT Tobacco abuse 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 Urinary tract infection without hematuria URINARY TRACT INFECTIOUS DISEASE Acute kidney injury superimposed on chronic kidney disease (HCC) ACUTE RENAL FAILURE SYNDROME Anemia ANEMIA Nephrolithiasis KIDNEY STONE Dyslipidemia DYSLIPIDEMIA Nephrotic syndrome NEPHROTIC SYNDROME Headache, unspecified headache type HEADACHE CURRENT ACTIVE MEDICATIONS: amLODIPine 10 mg Oral Daily atorvastatin 20 mg Oral Nightly calcium acetate(phosphat bind) 1,334 mg Oral TID with meals caRVEDILoL 6.25 mg Oral BID with meals cefazolin 1 g Intravenous Daily gabapentin 200 mg Oral TID heparin (porcine) 1,000-5,000 Units Intra-Catheter Once in dialysis hydrALAZINE 100 mg Oral Q8H insulin glargine 8 Units Subcutaneous Nightly insulin lispro 2-7 Units Subcutaneous 4 times daily before meals and nightl y lactobacillus 1 capsule Oral Daily multiple vitamins B complex with C 1 tablet Oral QPM QUEtiapine 50 mg Oral Nightly sertraline 100 mg Oral Daily trazodone 100 mg Oral Nightly acetaminophen, ALPRAZolam, wjxjjtuvql-dahkeciivtite-rgirfnvt, cyclobenzaprine, d extrose 50%, glucagon OR glucagon, glucose, HYDROcodone-acetaminophen, magne sium sulfate, ondansetron, tramadoL Blood Pressure: BP: (!) 151/89 Pulse: Pulse: 90 Temperature: Temp: 37.3 C (99.1 F) Respirations: Resp: 18 Admission Weight: Weight: 88.5 kg (195 lb) O2 Saturation: SpO2: 90 % Today's Weight: Weight: 90.1 kg (198 lb 10.2 oz) BMI: Body mass index is 28.5 kg /m. Intake/Output Summary (Last 24 hours) at 12/19/2020 1731 Last data filed at 12/19/2020 1700 Gross per 24 hour Intake 1150 ml Output 2900 ml Net -1750 ml Most Recent Result within the last 7 days Lab Units 12/19/20 0330 12/18/20 0324 12/17/20 0321 12/16/20 0159 12/14/20 0300 SODIUM MEQ/L 133 134 135 134 136 POTASSIUM MEQ/L 4.4 4.3 3.3* 3.7 4.6 CHLORIDE MEQ/L 101 101 105 104 114* CARBON DIOXIDE MEQ/L 31 31 33* 33* 19* BLOOD UREA NITROGEN mg/dL 25 40* 36* 37* 41* CREATININE mg/dL 3.6* 4.3* 3.7* 3.5* 4.0* GLUCOSE mg/dL 140* 120* 127* 174* 84 CALCIUM mg/dL 7.8* 7.8* 7.9* 7.7* 7.9* ALBUMIN g/dL 2.3* 2.4* 2.5* 2.5* 2.3* MAGNESIUM mg/dL -- 1.8 1.8 1.7 1.7 PHOSPHORUS mg/dL 4.0 5.9* 5.5* 5.2* 7.1* HEMOGLOBIN g/dL 7.2* 7.0* 7.3* 7.1* 7.4* HEMATOCRIT % 22* 22* 22* 22* 24* PLATELET COUNT TH/uL 210 212 205 217 216 Subjective: Patient had dialysis earlier today and tolerated well. He did have 1 episode of painless gross hematuria ROS: GEN: no Fevers noChills RESP: Minimal SOB no Cough CVS: no CP no PRATHER ( Pt not ambulated) GI: No nausea no Vomiting no Diarrhea : no Dysuria no Urgency gross hematuria x1 Physical Exam: GENERAL Awake, Alert Oriented x 3 In NAD HEAD: NCAT No obvious wounds EYES: SCLERA: Anicteric Conjunctiva: Normal ENT: Mucous Membranes Moist No Active Ear/ Nasal Drainage NECK: Supple no JVD no JVP LUNGS: Clear to Auscultation No Rales No Rhonchi Good Air Entry Bilaterally HEART: S1 S2 possible soft murmur No Gallop No RUB Edema: none ABD: NT ND No Palpable HS Megaly on my exam + Bowel sounds : Minimal CVA Tenderness (post biopsy) no Suprapubic Tenderness No results found. XR Chest 2 views (PA and lateral) Result Date: 12/18/2020 Moderate acute pneumonia left lower lobe with small effusion. Mild parahilar atelectasis on the right. Double-lumen catheter placement from a jugular approach with the tip overlying the right atrium without pneumothorax on the right Assessment and Plan: VALERIE plus CKD 4 with progression to ESRD. Presenting symptoms of nausea etc.: Pre sumed uremic in nature. We will continue dialysis tomorrow. Staph infection: We will await infectious disease approval prior to permacath pl acement. Patient would eventually like to proceed with peritoneal dialysis Hypoxemia: Currently not short of breath. Chest x-ray showed possible left lowe r lobe pneumonia. Will defer to Dr. Arenas to broaden spectrum of antibiotics if needed Right kidney pyelonephritis: Being treated by infectious disease specialist and has been seen by urology Nephrotic syndrome due to advanced diabetic nephropathy as noted on kidney biops y Nonobstructing renal calculi on previous CT. urology following patient. Doubt that his gross hematuria is of the same however if this recurs he may need reev aluation by urology. HyperTN: Current Medication list reviewed; as needed blood pressure medications if needed Anemia in the setting of Renal Failure:: RhuEPO will be Ordered if needed to maintain Hemoglobin in 10-11 range Minimal HyperPhosphatemia of Renal Failure: Continue current regimen o f Binders; Will continue to monitor and alter doses based on PO intake Type 1 diabetes: Defer to primary team, consider endocrinology evaluation especi ally to establish care and to ensure adequate diabetes control prior to initiati on of peritoneal dialysis Anemia: One-time erythropoietin will be ordered at this time. Once he is back o n his aspirin we shall reinitiate erythropoietin on 3 times weekly basis Discussed with at bedside Renal related Labs, imaging studies were reviewed, Meds interventions and plan d iscussed with patient and family at bedside. Questions answered to their satisfa ction. This note was partially created using [employer] voice recognition software in a spa ce with significant background noise and ongoing conversation (which is beyond m y control). I have diligently proof read the note to the best of my ability but errors due to bread wrapper software may be missed. Any such errors are unintent ional and I will be happy to clarify if brought to my attention (even at a later date) Electronically signed by: Carlos Hsieh 12/19/2020, 5:31 PM * Kun Stanton MD - 12/19/2020 3:17 PM CDT [facility] Infectious Disease Comprehensive Progress Note PATIENT NAME: Sommer Callahan DATE: 12/19/2020 AGE: 45 y.o. :[birth year] CC: Chief Complaint Patient presents with Abdominal Pain pt reports having N/V/D intermittenly for the past couple of weeks and that garcia s gotten worse over the past two days and he is having mid abd pain as well. Subjective: Feels OK. No new symptoms. Afebrile. ANTIBIOTICS Principal Problem: Acute kidney injury superimposed on chronic kidney disease (HCC) Active Problems: Type 1 diabetes mellitus with hyperglycemia (HCC) Hypertension Urinary tract infection without hematuria Anemia Nephrolithiasis Dyslipidemia Nephrotic syndrome Headache, unspecified headache type Scheduled Medications: amLODIPine 10 mg Oral Daily atorvastatin 20 mg Oral Nightly calcium acetate(phosphat bind) 1,334 mg Oral TID with meals caRVEDILoL 6.25 mg Oral BID with meals cefazolin 1 g Intravenous Daily gabapentin 200 mg Oral TID heparin (porcine) 1,000-5,000 Units Intra-Catheter Once in dialysis hydrALAZINE 100 mg Oral Q8H insulin glargine 8 Units Subcutaneous Nightly insulin lispro 2-7 Units Subcutaneous 4 times daily before meals and nightl y lactobacillus 1 capsule Oral Daily multiple vitamins B complex with C 1 tablet Oral QPM QUEtiapine 50 mg Oral Nightly sertraline 100 mg Oral Daily trazodone 100 mg Oral Nightly valproate 500 mg Intravenous Once Continuous Infusions: Allergies Allergen Reactions Clindamycin Dizziness, Hypotension, Syncope and Hives Varenicline Hallucinations Patient notes experiencing hallucinations and mood changes w/ this medication. Opioids - Morphine Analogues Pt states morphine makes him aggressive and doesn't like taking it Metformin Abdominal Pain and Nausea And Vomiting Zolpidem Other reaction(s): sleep walking, UNKNOWN Intake/Output Summary (Last 24 hours) at 12/19/2020 1517 Last data filed at 12/19/2020 1300 Gross per 24 hour Intake 1600 ml Output 3600 ml Net -2000 ml I/O last 24 Hours: In: 1030 [P.O.:730; Other:300] Out: 2600 [Urine:300; Other:2300] Wt Readings from Last 1 Encounters: 12/19/20 90.1 kg (198 lb 10.2 oz) ROS: 10 system review performed; pertinent positives and negatives listed above otherwise negative. Past medical, family and social history reviewed and is unchanged from initial I D note in chart. Diabetes Profile: Lab Results Component Value Date HGBA1C 12.4 (H) 11/26/2020 GLU 140 (H) 12/19/2020 GLU 120 (H) 12/18/2020 GLU 127 (H) 12/17/2020 Liver Profile: Lab Results Component Value Date ALT 20 12/12/2020 AST 21 12/12/2020 ALKPHOS 74 12/12/2020 Hematologic Profile: Most Recent Result within the last 7 days Lab Units 12/19/20 0330 12/18/20 0324 12/17/20 0321 12/16/20 0159 12/14/20 0300 12/13/20 0312 WBC TH/uL 8.24 7.53 5.84 6.88 5.38 6.31 HEMOGLOBIN g/dL 7.2* 7.0* 7.3* 7.1* 7.4* 7.6* HEMATOCRIT % 22* 22* 22* 22* 24* 24* PLATELET COUNT TH/uL 210 212 205 217 216 241 Metabolic Profile: Most Recent Result within the last 7 days Lab Units 12/19/20 0330 12/18/20 0324 12/17/20 0321 12/16/20 0159 12/14/20 0300 12/13/20 0312 SODIUM MEQ/L 133 134 135 134 136 138 POTASSIUM MEQ/L 4.4 4.3 3.3* 3.7 4.6 4.6 CHLORIDE MEQ/L 101 101 105 104 114* 119* CARBON DIOXIDE MEQ/L 31 31 33* 33* 19* 16* BLOOD UREA NITROGEN mg/dL 25 40* 36* 37* 41* 47* CREATININE mg/dL 3.6* 4.3* 3.7* 3.5* 4.0* 4.3* XR Chest 2 views (PA and lateral) Result Date: 12/18/2020 Moderate acute pneumonia left lower lobe with small effusion. Mild parahilar atelectasis on the right. Double-lumen catheter placement from a jugular approach with the tip overlying the right atrium without pneumothorax on the right Images reviewed independently by me Most Recent Result within the last 7 days Lab Units 12/12/20 1747 MICROSCOPIC WBC URINE /hpf >40* LEUKOCYTE ESTERASE Positive* NITRITE URINE Positive* BACTERIA Small* MICROBIOLOGY Results for orders placed or performed during the hospital encounter of 12/12/20 Culture, Urine Collection Time: 12/12/20 5:47 PM Specimen: Clean Voided Urine - Isolate 1 >100,000 Cfu/ml (A) Isolate 1 Methicillin Sensitive Staphylococcus aureus (A) Susceptibility Methicillin sensitive staphylococcus aureus - (no method available) OXACILLIN 0.5 Sensitive LINEZOLID 2 Sensitive NITROFURANTOIN <=16 Sensitive SEPTRA/BACTRIM <=10 Sensitive VANCOMYCIN 1.0 Sensitive Culture, Blood Collection Time: 12/12/20 7:36 PM Specimen: Blood - Culture Result No Growth at 5 days Culture, Blood Collection Time: 12/12/20 7:50 PM Specimen: Blood - Culture Result No Growth at 5 days Physical Exam: Temp: [36.9 C (98.5 F)-37.3 C (99.2 F)] 37.3 C (99.1 F) Pulse: [77-102] 90 Resp: [18-19] 18 BP: (124-166)/(45-94) 151/89 General Appearance: no acute distress. Eyes: no scleral icterus, or conjunctival hemorrhage. HEENT: no sinus tenderness, no oral thrush. SKIN: no rashes or pathologic lesions. Lymphatic: no palpable cervical axillary or inguinal lymph nodes. Heart: Normal s1 s2, no audible murmurs. Lungs: clear to auscultations without wheezing or rales. MUSCULOSKELETAL:examined joints without effusion, normal ROM. NEUROLOGIC: grossly non focal. : no suprapubic tenderness or fullness, no external lesions, no CVA tenderness . ABDOMEN: soft, non tender, no rebound or guarding present bowel sounds, no palpa ble masses. PSYCHIATRIC: alert, oriented, no changes of anxiety or depression. Assessment/Plan: 1. MSSA pyelonephritis of right kidney,improved 2. Poorly controlled diabetes mellitus 3. Acute kidney injury superimposed on chronic kidney disease; now on hemodial ysis 4. History of cerebrovascular accident (remote) 5. Status post appendectomy 6. Intolerance of clindamycin Plan 1.Continue cefazolin (dose reduced for level of renal function.) Will conv ert to po antibiotic tomorrow Electronically signed by Kun Stanton 12/19/2020 3:17 PM * Bruce Samayoa MD - 12/19/2020 10:52 AM CDT [facility] Patient Name: Sommer Callahan Account No: [id number] Date of : 1975 Date of Admission: 12/12/2020 5:55 PM Subjective Follow up regarding acute kidney injury. Continues to have intermittent headach e, rates it anywhere from 7-8 out of 10 intensity. At the time of my evaluation , he was undergoing hemodialysis ROS Pertinent positives: Headache, left earache, generalized weakness Pertinent negatives: Fever, chills, dysuria All other systems reviewed and are negative. Objective Vital Signs: Temp: 37.3 C (99.1 F) Pulse: (P) 100 Resp: (P) 18 BP: (P) 137/7 5 SpO2: 91 % Height: 177.8 cm (5' 10") Weight: 92.1 kg (203 lb 0.7 oz) I/O last 24 Hours: In: 250 [P.O.:250] Out: 300 [Urine:300] Physical Exam Constitutional: Appearance: Normal appearance. HENT: Head: Comments: Bilateral frontal and mastoid sinus tenderness present Neck: Comments: Temporary hemodialysis catheter Cardiovascular: Rate and Rhythm: Normal rate and regular rhythm. Pulses: Normal pulses. Heart sounds: Normal heart sounds. Pulmonary: Effort: Pulmonary effort is normal. Breath sounds: Normal breath sounds. Neurological: General: No focal deficit present. Mental Status: He is alert and oriented to person, place, and time. Mental st atus is at baseline. I have personally reviewed the patient's vital signs, laboratory/pathology/cultu re results (as indicated), imaging studies (results were not discussed with the performing provider), current inpatient medications and telecommunications support notes with pertainent findings noted within the assessment/plan. I have personally reviewe d the patient's past medical, surgical, family, or social history and there were no changes reported. Assessment/Plan Mr. Sommer Callahan is a 45 y.o. male who was admitted on 12/12/2020 with complaint of Abdominal Pain. Problems addressed with today's visit include: * Acute kidney injury superimposed on chronic kidney disease (HCC) -Cr reported to be 1-1.3 in 04/2020 -Progressive worsening with signs of nephrotic syndrome -Status post right IJ temporary hemodialysis catheter placement -Pending renal biopsy, preliminary report suggesting possible diabetic nephropat hy -Nephrology on board -Currently receiving hemodialysis per nephrology Type 1 diabetes mellitus with hyperglycemia (HCC) -A1C 12.4 on 11/26/20 -Resumed Levemir, dosing being adjusted -Additional sliding scale insulin coverage. Nephrotic syndrome -Likely diabetic nephropathy -Per nephrology Urinary tract infection without hematuria -Discharged on 05/28. Urine culture grew MSSA -Follow-up on urine and blood cultures -Started on Ancef per ID -Appreciate urology consult, no active intervention for nephrolithiasis Hypertension -Resumed home dose of amlodipine, Coreg, hydralazine -Reasonably controlled, uptitrated the dose of amlodipine Headache, unspecified headache type -With sinus tenderness -CT head consistent with mastoiditis -Already on Ancef -Continues to have refractory headache, get neurology opinion Dyslipidemia -Resumed home statin Nephrolithiasis -Urology recommended outpatient follow-up Anemia -Could be related to renal disease iron studies unremarkable -EPO given per nephrology -Transfuse to keep hemoglobin more than 7 See my orders for additional details regarding this patients treatment plan. Expected Discharge Date The patient's predicted discharge date is 12/20/2020, but this doesn't guarantee a discharge on this date. Anticipated Discharge Destination The patient's anticipated discharge destination is [facility]. Room: [address] [place] [address] Diet: Diet-Hemodialysis, Consistent Carbohydrate Diet NPO VTE Prevention: Appropriate VTE mechanical treatment ordered. Code Status: Full Code Yanez Catheter: N/A Scheduled Meds: amLODIPine 10 mg Oral Daily atorvastatin 20 mg Oral Nightly calcium acetate(phosphat bind) 1,334 mg Oral TID with meals caRVEDILoL 6.25 mg Oral BID with meals cefazolin 1 g Intravenous Daily gabapentin 200 mg Oral TID heparin (porcine) 1,000-5,000 Units Intra-Catheter Once in dialysis hydrALAZINE 100 mg Oral Q8H insulin glargine 8 Units Subcutaneous Nightly insulin lispro 2-7 Units Subcutaneous 4 times daily before meals and nightl y lactobacillus 1 capsule Oral Daily multiple vitamins B complex with C 1 tablet Oral QPM QUEtiapine 50 mg Oral Nightly sertraline 100 mg Oral Daily trazodone 100 mg Oral Nightly Continuous Infusions: PRN Meds: acetaminophen, ALPRAZolam, cnrdvnokbs-hyjkfmjwmrisu-pqlyxudo, cyclobenzaprine, d extrose 50%, glucagon OR glucagon, glucose, HYDROcodone-acetaminophen, magne sium sulfate, ondansetron, tramadoL Bruce Samayoa MD [facility] Medicine Division . * Carlos Hsieh MD - 12/18/2020 6:27 PM CDT [facility] - Progress Note MD Mike Brown MD Achal Desai, MD Kristine Herron, MD Richard Schumacher Suleiman Daifallah, MD Archana Goel MD Encounter Date: 12/18/2020 6:27 PM Patient Demographic Information: Patient Name: Sommer Callahan Age: 45 y.o. Sex: male Date of : 1975 Current Admission: Admit Date: 12/12/2020 Admitting Physician: Krys Man MD Length of Stay: 6 Days Note Author: Carlos Hsieh Asked to see patient for: ARF/ CKD stage III Fluid and Electrolytes mangemen t Patient Active Problem List Diagnosis SNOMED CT(R) VALERIE (acute kidney injury) (HCC) ACUTE INJURY OF KIDNEY Type 1 diabetes mellitus with hyperglycemia (HCC) HYPERGLYCEMIA DUE TO TYPE 1 DIABETES MELLITUS Hypertension HYPERTENSIVE DISORDER Vaccine counseling COUNSELING PROCEDURE WITH EXPLICIT CONTEXT Depression DEPRESSIVE DISORDER Noncompliance with diabetes treatment NONCOMPLIANCE WITH TREATMENT Tobacco abuse 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 Urinary tract infection without hematuria URINARY TRACT INFECTIOUS DISEASE Acute kidney injury superimposed on chronic kidney disease (HCC) ACUTE RENAL FAILURE SYNDROME Anemia ANEMIA Nephrolithiasis KIDNEY STONE Dyslipidemia DYSLIPIDEMIA Nephrotic syndrome NEPHROTIC SYNDROME Headache, unspecified headache type HEADACHE CURRENT ACTIVE MEDICATIONS: amLODIPine 10 mg Oral Daily atorvastatin 20 mg Oral Nightly calcium acetate(phosphat bind) 1,334 mg Oral TID with meals caRVEDILoL 6.25 mg Oral BID with meals cefazolin 1 g Intravenous Daily gabapentin 200 mg Oral TID heparin (porcine) 1,000-5,000 Units Intra-Catheter Once in dialysis hydrALAZINE 100 mg Oral Q8H insulin lispro 2-7 Units Subcutaneous 4 times daily before meals and nightl y lactobacillus 1 capsule Oral Daily multiple vitamins B complex with C 1 tablet Oral QPM QUEtiapine 50 mg Oral Nightly sertraline 100 mg Oral Daily trazodone 100 mg Oral Nightly acetaminophen, ALPRAZolam, zmphimfunu-opeutccildqdi-hrcjnvmd, cyclobenzaprine, d extrose 50%, glucagon OR glucagon, glucose, HYDROcodone-acetaminophen, magne sium sulfate, ondansetron, tramadoL Blood Pressure: BP: (!) 165/98 Pulse: Pulse: 90 Temperature: Temp: 37.2 C (98.9 F) Respirations: Resp: 19 Admission Weight: Weight: 88.5 kg (195 lb) O2 Saturation: SpO2: 93 % Today's Weight: Weight: 93 kg (205 lb 0.4 oz) BMI: Body mass index is 29.42 kg/m . Intake/Output Summary (Last 24 hours) at 12/18/2020 1827 Last data filed at 12/18/2020 1700 Gross per 24 hour Intake 1110 ml Output 2125 ml Net -1015 ml Most Recent Result within the last 7 days Lab Units 12/18/20 0324 12/17/20 0321 12/16/20 0159 12/14/20 0300 SODIUM MEQ/L 134 135 134 136 POTASSIUM MEQ/L 4.3 3.3* 3.7 4.6 CHLORIDE MEQ/L 101 105 104 114* CARBON DIOXIDE MEQ/L 31 33* 33* 19* BLOOD UREA NITROGEN mg/dL 40* 36* 37* 41* CREATININE mg/dL 4.3* 3.7* 3.5* 4.0* GLUCOSE mg/dL 120* 127* 174* 84 CALCIUM mg/dL 7.8* 7.9* 7.7* 7.9* ALBUMIN g/dL 2.4* 2.5* 2.5* 2.3* MAGNESIUM mg/dL 1.8 1.8 1.7 1.7 PHOSPHORUS mg/dL 5.9* 5.5* 5.2* 7.1* HEMOGLOBIN g/dL 7.0* 7.3* 7.1* 7.4* HEMATOCRIT % 22* 22* 22* 24* PLATELET COUNT TH/uL 212 205 217 216 Subjective: Patient had dialysis earlier today and tolerated well. Dialysis cat heter went well. He did have significant discomfort last night after his kidney biopsy. It was noted that he passed to few blood clots and now his pain is res olved. ROS: GEN: no Fevers noChills RESP: Minimal SOB no Cough CVS: no CP no PRATHER ( Pt not ambulated) GI: Some nausea yesterday no Vomiting no Diarrhea : no Dysuria no Urgency Physical Exam: GENERAL Awake, Alert Oriented x 3 In NAD HEAD: NCAT No obvious wounds EYES: SCLERA: Anicteric Conjunctiva: Normal ENT: Mucous Membranes Moist No Active Ear/ Nasal Drainage NECK: Supple no JVD no JVP LUNGS: Clear to Auscultation No Rales No Rhonchi Good Air Entry Bilaterally HEART: S1 S2 No Obvious Murmur No Gallop No RUB Edema: none ABD: NT ND No Palpable HS Megaly on my exam + Bowel sounds : Minimal CVA Tenderness (post biopsy) no Suprapubic Tenderness No results found. US Guided Biopsy Kidney Addendum Date: 12/17/2020 ++++++++++++++++++++++++++++++++++++++ADDENDUM+++++++++++++++++++++++++++++ Addendum: I was called by nursing report [...] answered. Signed (Authenticated, Released) Date/Time 12/17/2020 170 +++++++++++++++++++++++++++++++++++++++++++++++++++++++++++++++++++++++++++ Result Date: 12/17/2020 Successful ultrasound-guided core needle biopsy of the [...] Conscious sedation achieved with Versed and fentanyl. IR Tunneled Dialysis catheter check Result Date: 12/17/2020 Successful repositioning of right IJ temporary hemodialysis catheter. Assessment and Plan: Advanced diabetic nephropathy on pulmonary reading of kidney biopsy with signifi cant interstitial fibrosis, presumption progression to ESRD state unless some re versal can be noted after treatment of his bacteriuria/pyelonephritis. Presenting symptoms of nausea etc.: Presumed uremic in nature. We will continue dialysis tomorrow and day after and reevaluate for ongoing dialysis Hypoxemia: Check chest x-ray okay to use IV Lasix if needed Right kidney pyelonephritis: Being treated by infectious disease specialist and also followed by urology Nephrotic syndrome due to advanced diabetic nephropathy Nonobstructing renal calculi on previous CT. urology following patient HyperTN: Current Medication list reviewed; as needed blood pressure medications if needed Anemia in the setting of Renal Failure:: RhuEPO will be Ordered if needed to maintain Hemoglobin in 10-11 range Minimal HyperPhosphatemia of Renal Failure: Continue current regimen o f Binders; Will continue to monitor and alter doses based on PO intake Type 1 diabetes: Defer to primary team, consider endocrinology evaluation Anemia: One-time erythropoietin will be ordered at this time. Once he is back o n his aspirin and if few days, we shall reinitiate erythropoietin on 3 times wee kly basis Discussed with at bedside Renal related Labs, imaging studies were reviewed, Meds interventions and plan d iscussed with patient and family at bedside. Questions answered to their satisfa ction. This note was partially created using [employer] voice recognition software in a spa ce with significant background noise and ongoing conversation (which is beyond m y control). I have diligently proof read the note to the best of my ability but errors due to bread wrapper software may be missed. Any such errors are unintent ional and I will be happy to clarify if brought to my attention (even at a later date) Electronically signed by: Carlos Hsieh 12/18/2020, 6:27 PM * Kun Stanton MD - 12/18/2020 3:31 PM CDT [facility] Infectious Disease Comprehensive Progress Note PATIENT NAME: Sommer Callahan DATE: 12/18/2020 AGE: 45 y.o. :[birth year] Subjective: Feels better. Pain markedly improved. Afebrile. ANTIBIOTICS Principal Problem: Acute kidney injury superimposed on chronic kidney disease (HCC) Active Problems: Type 1 diabetes mellitus with hyperglycemia (HCC) Hypertension Urinary tract infection without hematuria Anemia Nephrolithiasis Dyslipidemia Nephrotic syndrome Headache, unspecified headache type Scheduled Medications: amLODIPine 10 mg Oral Daily atorvastatin 20 mg Oral Nightly calcium acetate(phosphat bind) 1,334 mg Oral TID with meals caRVEDILoL 6.25 mg Oral BID with meals cefazolin 1 g Intravenous Daily gabapentin 200 mg Oral TID heparin (porcine) 1,000-5,000 Units Intra-Catheter Once in dialysis hydrALAZINE 100 mg Oral Q8H insulin lispro 2-7 Units Subcutaneous 4 times daily before meals and nightl y lactobacillus 1 capsule Oral Daily multiple vitamins B complex with C 1 tablet Oral QPM QUEtiapine 50 mg Oral Nightly sertraline 100 mg Oral Daily trazodone 100 mg Oral Nightly Continuous Infusions: Allergies Allergen Reactions Clindamycin Dizziness, Hypotension, Syncope and Hives Varenicline Hallucinations Patient notes experiencing hallucinations and mood changes w/ this medication. Opioids - Morphine Analogues Pt states morphine makes him aggressive and doesn't like taking it Metformin Abdominal Pain and Nausea And Vomiting Zolpidem Other reaction(s): sleep walking, UNKNOWN Intake/Output Summary (Last 24 hours) at 12/18/2020 1531 Last data filed at 12/18/2020 1400 Gross per 24 hour Intake 540 ml Output 1125 ml Net -585 ml I/O last 24 Hours: In: 540 [P.O.:240; Other:300] Out: 1125 [Urine:825; Other:300] Wt Readings from Last 1 Encounters: 12/18/20 93 kg (205 lb 0.4 oz) ROS: 10 system review performed; pertinent positives and negatives listed above otherwise negative. Past medical, family and social history reviewed and is unchanged from initial I D note in chart. Diabetes Profile: Lab Results Component Value Date HGBA1C 12.4 (H) 11/26/2020 GLU 120 (H) 12/18/2020 GLU 127 (H) 12/17/2020 GLU 174 (H) 12/16/2020 Liver Profile: Lab Results Component Value Date ALT 20 12/12/2020 AST 21 12/12/2020 ALKPHOS 74 12/12/2020 Hematologic Profile: Most Recent Result within the last 7 days Lab Units 12/18/20 0324 12/17/20 0321 12/16/20 0159 12/14/20 0300 12/13/20 0312 12/12/20 1816 WBC TH/uL 7.53 5.84 6.88 5.38 6.31 7.21 HEMOGLOBIN g/dL 7.0* 7.3* 7.1* 7.4* 7.6* 8.4* HEMATOCRIT % 22* 22* 22* 24* 24* 26* PLATELET COUNT TH/uL 212 205 217 216 241 291 Metabolic Profile: Most Recent Result within the last 7 days Lab Units 12/18/20 0324 12/17/20 0321 12/16/20 0159 12/14/20 0300 12/13/20 03112/12/20 1816 SODIUM MEQ/L 134 135 134 136 138 140 POTASSIUM MEQ/L 4.3 3.3* 3.7 4.6 4.6 5.1 CHLORIDE MEQ/L 101 105 104 114* 119* 119* CARBON DIOXIDE MEQ/L 31 33* 33* 19* 16* 18* BLOOD UREA NITROGEN mg/dL 40* 36* 37* 41* 47* 48* CREATININE mg/dL 4.3* 3.7* 3.5* 4.0* 4.3* 4.4* US Guided Biopsy Kidney Addendum Date: 12/17/2020 ++++++++++++++++++++++++++++++++++++++ADDENDUM+++++++++++++++++++++++++++++ Addendum: I was called by nursing report [...] answered. Signed (Authenticated, Released) Date/Time 12/17/2020 170 +++++++++++++++++++++++++++++++++++++++++++++++++++++++++++++++++++++++++++ Result Date: 12/17/2020 Successful ultrasound-guided core needle biopsy of the [...] Conscious sedation achieved with Versed and fentanyl. IR Tunneled Dialysis catheter check Result Date: 12/17/2020 Successful repositioning of right IJ temporary hemodialysis catheter. Images reviewed independently by me Most Recent Result within the last 7 days Lab Units 12/12/20 1747 MICROSCOPIC WBC URINE /hpf >40* LEUKOCYTE ESTERASE Positive* NITRITE URINE Positive* BACTERIA Small* MICROBIOLOGY Results for orders placed or performed during the hospital encounter of 12/12/20 Culture, Urine Collection Time: 12/12/20 5:47 PM Specimen: Clean Voided Urine - Isolate 1 >100,000 Cfu/ml (A) Isolate 1 Methicillin Sensitive Staphylococcus aureus (A) Susceptibility Methicillin sensitive staphylococcus aureus - (no method available) OXACILLIN 0.5 Sensitive LINEZOLID 2 Sensitive NITROFURANTOIN <=16 Sensitive SEPTRA/BACTRIM <=10 Sensitive VANCOMYCIN 1.0 Sensitive Culture, Blood Collection Time: 12/12/20 7:36 PM Specimen: Blood - Culture Result No Growth at 5 days Culture, Blood Collection Time: 12/12/20 7:50 PM Specimen: Blood - Culture Result No Growth at 5 days Physical Exam: Temp: [36.6 C (97.9 F)-37.2 C (99 F)] 37.2 C (98.9 F) Pulse: [81-90] 90 Resp: [12-19] 19 BP: (110-165)/(68-98) 165/98 General Appearance: no acute distress. Eyes: no scleral icterus, or conjunctival hemorrhage. HEENT: no sinus tenderness, no oral thrush. SKIN: no rashes or pathologic lesions. Lymphatic: no palpable cervical axillary or inguinal lymph nodes. Heart: Normal s1 s2, no audible murmurs. Lungs: clear to auscultations without wheezing or rales. MUSCULOSKELETAL:examined joints without effusion, normal ROM. NEUROLOGIC: grossly non focal. : no suprapubic tenderness or fullness, no external lesions, no CVA tenderness . ABDOMEN: soft, non tender, no rebound or guarding present bowel sounds, no palpa ble masses. PSYCHIATRIC: alert, oriented, no changes of anxiety or depression. Assessment/Plan: 1. MSSA pyelonephritis of right kidney, improved 2. Poorly controlled diabetes mellitus 3. Acute kidney injury superimposed on chronic kidney disease; now on hemodial ysis 4. History of cerebrovascular accident (remote) 5. Status post appendectomy 6. Intolerance of clindamycin Plan 1.Continue cefazolin (dose reduced for level of renal function.) Will conv ert to po antibiotic on 12/21/20 Electronically signed by Kun Stanton 12/18/2020 3:31 PM * Lili Jay MD - 12/18/2020 1:24 PM CDT [facility] Patient Name: Sommer Callahan Account No: [id number] Date of : 1975 Date of Admission: 12/12/2020 5:55 PM Subjective Follow up regarding acute kidney injury. Patient had back pain around the site of renal biopsy yesterday and had some blood in the urine, back pain has almost resolved. Blood in the urine has cleared. Has intermittent headache. ROS Pertinent positives: Headache, left earache, generalized weakness Pertinent negatives: Fever, chills, dysuria All other systems reviewed and are negative. Objective Vital Signs: Temp: 36.7 C (98.1 F) Pulse: 88 Resp: 16 BP: (!) 154/86 SpO2: 9 8 % Height: 177.8 cm (5' 10") Weight: 93 kg (205 lb 0.4 oz) I/O last 24 Hours: In: 240 [P.O.:240] Out: 825 [Urine:825] Physical Exam Constitutional: Appearance: Normal appearance. HENT: Head: Comments: Bilateral frontal and mastoid sinus tenderness present Neck: Comments: Temporary hemodialysis catheter Cardiovascular: Rate and Rhythm: Normal rate and regular rhythm. Pulses: Normal pulses. Heart sounds: Normal heart sounds. Pulmonary: Effort: Pulmonary effort is normal. Breath sounds: Normal breath sounds. Neurological: General: No focal deficit present. Mental Status: He is alert and oriented to person, place, and time. Mental st atus is at baseline. I have personally reviewed the patient's vital signs, laboratory/pathology/cultu re results (as indicated), imaging studies (results were not discussed with the performing provider), current inpatient medications and telecommunications support notes with pertainent findings noted within the assessment/plan. I have personally reviewe d the patient's past medical, surgical, family, or social history and there were no changes reported. Assessment/Plan Mr. Sommer Callahan is a 45 y.o. male who was admitted on 12/12/2020 with complaint of Abdominal Pain. Problems addressed with today's visit include: * Acute kidney injury superimposed on chronic kidney disease (HCC) -Cr reported to be 1-1.3 in 04/2020 -Progressive worsening with signs of nephrotic syndrome -Status post right IJ temporary hemodialysis catheter placement -Status post renal biopsy 12/17 -Plan for HD today Transient hematuria likely related to renal biopsy which is resolved, back pain has resolved Nephrology following, input appreciated Type 1 diabetes mellitus with hyperglycemia (HCC) -A1C 12.4 on 11/26/20 -Hypoglycemia noted early a.m., DC Lantus Continue SSI Nephrotic syndrome -UA consistent with nephrotic syndrome -Per nephrology Urinary tract infection without hematuria -Discharged on 05/28. Urine culture grew MSSA -Follow-up on urine and blood cultures -Started on Ancef per ID, started 12/13 -Appreciate urology consult, no active intervention for nephrolithiasis Hypertension Continue home dose of amlodipine, Coreg, hydralazine Blood pressure still on the higher side, overall improved, will continue to yoshi tor and adjust Headache, unspecified headache type -With sinus tenderness -CT head consistent with mastoiditis -Already on Ancef Dyslipidemia -Resumed home statin Nephrolithiasis -Urology recommended outpatient follow-up Anemia -Could be related to renal disease iron studies unremarkable -EPO per nephrology -Transfuse to keep hemoglobin more than 7 No evidence of active bleeding Start heparin for DVT prophylaxis tomorrow if no further hematuria and hemoglobi n stable See my orders for additional details regarding this patients treatment plan. Expected Discharge Date The patient's predicted discharge date is 12/20/2020, but this doesn't guarantee a discharge on this date. Anticipated Discharge Destination The patient's anticipated discharge destination is [facility]. Room: [address] [place] [address] Diet: Diet-Hemodialysis, Consistent Carbohydrate Diet NPO VTE Prevention: Appropriate VTE mechanical treatment ordered. Code Status: Full Code Yanez Catheter: N/A Scheduled Meds: amLODIPine 10 mg Oral Daily atorvastatin 20 mg Oral Nightly calcium acetate(phosphat bind) 1,334 mg Oral TID with meals caRVEDILoL 6.25 mg Oral BID with meals cefazolin 1 g Intravenous Daily gabapentin 200 mg Oral TID heparin (porcine) 1,000-5,000 Units Intra-Catheter Once in dialysis hydrALAZINE 100 mg Oral Q8H insulin lispro 2-7 Units Subcutaneous 4 times daily before meals and nightl y lactobacillus 1 capsule Oral Daily multiple vitamins B complex with C 1 tablet Oral QPM QUEtiapine 50 mg Oral Nightly sertraline 100 mg Oral Daily trazodone 100 mg Oral Nightly Continuous Infusions: PRN Meds: acetaminophen, ALPRAZolam, fcabuhzmhl-dhtwicwbbtwrg-qrthibkp, cyclobenzaprine, d extrose 50%, glucagon OR glucagon, glucose, HYDROcodone-acetaminophen, magne sium sulfate, ondansetron, tramadoL Lili Jay MD [facility] Medicine Division . * Kun Stanton MD - 12/17/2020 4:15 PM CDT [facility] Infectious Disease Comprehensive Progress Note PATIENT NAME: Sommer Callahan DATE: 12/17/2020 AGE: 45 y.o. :[birth year] CC: Subjective: C/O pain at biopsy site. Afebrile. ANTIBIOTICS Principal Problem: Acute kidney injury superimposed on chronic kidney disease (HCC) Active Problems: Type 1 diabetes mellitus with hyperglycemia (HCC) Hypertension Urinary tract infection without hematuria Anemia Nephrolithiasis Dyslipidemia Nephrotic syndrome Headache, unspecified headache type Scheduled Medications: amLODIPine 10 mg Oral Daily atorvastatin 20 mg Oral Nightly calcium acetate(phosphat bind) 1,334 mg Oral TID with meals caRVEDILoL 6.25 mg Oral BID with meals cefazolin 1 g Intravenous Daily epoetin nnamdi-epbx (RETACRIT) injection 10,000 Units Subcutaneous Once gabapentin 200 mg Oral TID heparin (porcine) 1,000-5,000 Units Intra-Catheter Once in dialysis hydrALAZINE 100 mg Oral Q8H insulin detemir U-100 10 Units Subcutaneous Nightly insulin lispro 2-7 Units Subcutaneous 4 times daily before meals and nightl y lactobacillus 1 capsule Oral Daily multiple vitamins B complex with C 1 tablet Oral QPM potassium chloride 40 mEq Oral BID QUEtiapine 50 mg Oral Nightly sertraline 100 mg Oral Daily trazodone 100 mg Oral Nightly Continuous Infusions: dextrose 5 % and sodium chloride 0.45 % 50 mL/hr (12/17/20 0928) Allergies Allergen Reactions Clindamycin Dizziness, Hypotension, Syncope and Hives Varenicline Hallucinations Patient notes experiencing hallucinations and mood changes w/ this medication. Opioids - Morphine Analogues Pt states morphine makes him aggressive and doesn't like taking it Metformin Abdominal Pain and Nausea And Vomiting Zolpidem Other reaction(s): sleep walking, UNKNOWN Intake/Output Summary (Last 24 hours) at 12/17/2020 1616 Last data filed at 12/17/2020 1350 Gross per 24 hour Intake 420 ml Output 2400 ml Net -1980 ml I/O last 24 Hours: In: - Out: 2400 [Urine:2400] Wt Readings from Last 1 Encounters: 12/17/20 92.6 kg (204 lb 1.6 oz) ROS: 10 system review performed; pertinent positives and negatives listed above otherwise negative. Past medical, family and social history reviewed and is unchanged from initial I D note in chart. Diabetes Profile: Lab Results Component Value Date HGBA1C 12.4 (H) 11/26/2020 GLU 127 (H) 12/17/2020 GLU 174 (H) 12/16/2020 GLU 84 12/14/2020 Liver Profile: Lab Results Component Value Date ALT 20 12/12/2020 AST 21 12/12/2020 ALKPHOS 74 12/12/2020 Hematologic Profile: Most Recent Result within the last 7 days Lab Units 12/17/20 0321 12/16/20 0159 12/14/20 0300 12/13/20 0312 12/12/20 1816 WBC TH/uL 5.84 6.88 5.38 6.31 7.21 HEMOGLOBIN g/dL 7.3* 7.1* 7.4* 7.6* 8.4* HEMATOCRIT % 22* 22* 24* 24* 26* PLATELET COUNT TH/uL 205 217 216 241 291 Metabolic Profile: Most Recent Result within the last 7 days Lab Units 12/17/20 0321 12/16/20 0159 12/14/20 0300 12/13/20 0312 12/12/20 1816 SODIUM MEQ/L 135 134 136 138 140 POTASSIUM MEQ/L 3.3* 3.7 4.6 4.6 5.1 CHLORIDE MEQ/L 105 104 114* 119* 119* CARBON DIOXIDE MEQ/L 33* 33* 19* 16* 18* BLOOD UREA NITROGEN mg/dL 36* 37* 41* 47* 48* CREATININE mg/dL 3.7* 3.5* 4.0* 4.3* 4.4* US Guided Biopsy Kidney Result Date: 12/17/2020 Successful ultrasound-guided core needle biopsy of the [...] Conscious sedation achieved with Versed and fentanyl. IR Tunneled Dialysis catheter check Result Date: 12/17/2020 Successful repositioning of right IJ temporary hemodialysis catheter. Images reviewed independently by me Most Recent Result within the last 7 days Lab Units 12/12/20 1747 MICROSCOPIC WBC URINE /hpf >40* LEUKOCYTE ESTERASE Positive* NITRITE URINE Positive* BACTERIA Small* MICROBIOLOGY Results for orders placed or performed during the hospital encounter of 12/12/20 Culture, Urine Collection Time: 12/12/20 5:47 PM Specimen: Clean Voided Urine - Isolate 1 >100,000 Cfu/ml (A) Isolate 1 Methicillin Sensitive Staphylococcus aureus (A) Susceptibility Methicillin sensitive staphylococcus aureus - (no method available) OXACILLIN 0.5 Sensitive LINEZOLID 2 Sensitive NITROFURANTOIN <=16 Sensitive SEPTRA/BACTRIM <=10 Sensitive VANCOMYCIN 1.0 Sensitive Culture, Blood Collection Time: 12/12/20 7:36 PM Specimen: Blood - Culture Result No growth at 2 days Culture, Blood Collection Time: 12/12/20 7:50 PM Specimen: Blood - Culture Result No growth at 2 days Physical Exam: Temp: [36.2 C (97.2 F)-37.1 C (98.7 F)] 36.6 C (97.9 F) Pulse: [84-97] 87 Resp: [10-20] 14 BP: (123-172)/(67-103) 123/72 General Appearance: no acute distress. Eyes: no scleral icterus, or conjunctival hemorrhage. HEENT: no sinus tenderness, no oral thrush. SKIN: no rashes or pathologic lesions. Lymphatic: no palpable cervical axillary or inguinal lymph nodes. Heart: Normal s1 s2, no audible murmurs. Lungs: clear to auscultations without wheezing or rales. MUSCULOSKELETAL:examined joints without effusion, normal ROM. NEUROLOGIC: grossly non focal. : no suprapubic tenderness or fullness, no external lesions, no CVA tenderness . ABDOMEN: soft, non tender, no rebound or guarding present bowel sounds, no palpa ble masses. PSYCHIATRIC: alert, oriented, no changes of anxiety or depression. Assessment/Plan: 1. MSSA pyelonephritis of right kidney, improved 2. Poorly controlled diabetes mellitus 3. Acute kidney injury superimposed on chronic kidney disease 4. History of cerebrovascular accident (remote) 5. Status post appendectomy 6. Intolerance of clindamycin Plan 1. Continue cefazolin (dose reduced for level of renal function.) Will conve rt to po antibiotic in 1-2 days Discussed with Radiology Electronically signed by Kun Stanton 12/17/2020 4:16 PM * Marylu Stephenson NP - 12/17/2020 2:53 PM CDT . Hematology-Medical Oncology Progress Note NAME: Sommer Callahan DATE OF : 1975 AGE: 45 y.o., Male DATE OF SERVICE: 12/12/2020 PCP: Carmelita Avila APRN DIAGNOSIS Lupus Anticoagulant - DRVVT + on 11/27/2020 Renal dysfunction Bladder Wall Thickening Retroperitoneal Adenopathy SUBJECTIVE Hematology follow up regarding positive DRVVT testing. Patient had just returned from kidney biopsy. Describes pain at biopsy site. D enies other new or acute issues. Denies chest pain or leg swelling. PAST MEDICAL AND SURGICAL HISTORY Past Medical History: Diagnosis Date Hypertension Stroke (HCC) 03/02/2019 Left parieto-occipital infarct Type 1 diabetes mellitus (HCC) 1998 Past Surgical History: Procedure Laterality Date APPENDECTOMY IR NON TUNNELED DIALYSIS CATHETER PLACEMENT 12/13/2020 SINUS SURGERY TONSILLECTOMY US GUIDED BIOPSY KIDNEY 12/17/2020 MEDICATIONS Current Facility-Administered Medications: acetaminophen (TYLENOL) tablet 650 mg, 650 mg, Oral, Q6H PRN, Holly Allen MD, 650 mg at 12/17/20 1344 ALPRAZolam (XANAX) tablet 0.5 mg, 0.5 mg, Oral, Nightly PRN, Holly Allen MD amLODIPine (NORVASC) tablet 10 mg, 10 mg, Oral, Daily, Bruce Samayoa MD, 10 mg at 12/17/20 0816 atorvastatin (LIPITOR) tablet 20 mg, 20 mg, Oral, Nightly, Holly Allen MD , 20 mg at 12/16/20 205 jngwbkwpic-gabrxxusqtawt-zgzvuvyy (FIORICET, ESGIC) per tablet 1 tablet, 1 tablet, Oral, Q4H PRN, Krys Man MD, 1 tablet at 12/16/20 1203 calcium acetate(phosphat bind) (PHOSLO) capsule 1,334 mg, 1,334 mg, Oral, T ID with meals, Carlos Hsieh MD, 1,334 mg at 12/17/20 1343 caRVEDILol (COREG) tablet 6.25 mg, 6.25 mg, Oral, BID with meals, Holly alvares MD, 6.25 mg at 12/17/20 0815 ceFAZolin (ANCEF) injection 1 g, 1 g, Intravenous, Daily, Donita Acevedo, 1 g at 12/17/20 0816 cyclobenzaprine (FLEXERIL) tablet 10 mg, 10 mg, Oral, BID PRN, Holly Allen MD, 10 mg at 12/13/20 2135 dextrose 5 % and sodium chloride 0.45 % infusion, 50 mL/hr, Intravenous, Co ntinuous, Bruce Samayoa MD, Last Rate: 50 mL/hr at 12/17/20 0928, 50 mL/hr at 0928 dextrose 50% (D50W) syringe 25-50 mL, 25-50 mL, Intravenous, PRN, Holly alvares MD, 25 mL at 12/14/20 0924 epoetin nnamdi-epbx (RETACRIT) injection 10,000 Units, 10,000 Units, Subcutan eous, Once, Carlos Hsieh MD gabapentin (NEURONTIN) capsule 200 mg, 200 mg, Oral, TID, Holly Allen MD, 200 mg at 12/17/20 0815 glucagon (GLUCAGEN) injection 1 mg, 1 mg, Intramuscular, PRN OR glucago n (GLUCAGEN) injection 1 mg, 1 mg, Subcutaneous, PRN, Holly Allen MD glucose chewable tablet 16-32 g, 16-32 g, Oral, PRN, Holly Allen MD heparin (porcine) 1,000 unit/mL injection 1,000-5,000 Units, 1,000-5,000 Un its, Intra-Catheter, Once in dialysis, Holly Allen MD hydrALAZINE (APRESOLINE) tablet 100 mg, 100 mg, Oral, Q8H, Holly Allen MD , 100 mg at 12/17/20 134 HYDROcodone-acetaminophen (NORCO) 10-325 mg per tablet 1 tablet, 1 tablet, Oral, Q6H PRN, Carlo Atkinson MD insulin detemir U-100 (LEVEMIR) injection 10 Units, 10 Units, Subcutaneous, Nightly, Holly Allen MD, 10 Units at 12/16/202055 insulin lispro (HumaLOG) injection 2-7 Units, 2-7 Units, Subcutaneous, 4 ti mes daily before meals and nightly, Holly Allen MD, 2 Units at 12/16/20 1700 lactobacillus (CULTURELLE) 10 billion cell capsule, 1 capsule, Oral, Daily, Nuvia Lagos NP, 1 capsule at 12/17/20 0815 magnesium sulfate IVPB 2 gram (premix), 2 g, Intravenous, PRN, Carlos Hsieh MD multiple vitamins B complex with C (NEPHRO-ELIJAH) tablet 1 tablet, 1 tablet, Oral, QPM, Carlos Hsieh MD, 1 tablet at 12/15/20 1724 ondansetron (ZOFRAN) injection 4 mg, 4 mg, Intravenous, Q6H PRN, Holly chung MD potassium chloride (KLOR-CON) CR tablet 40 mEq, 40 mEq, Oral, BID, Carlos Pendleton MD, 40 mEq at 12/17/20 134 QUEtiapine (SEROquel) tablet 50 mg, 50 mg, Oral, Nightly, Holly Allen MD, 50 mg at 12/16/202054 sertraline (ZOLOFT) tablet 100 mg, 100 mg, Oral, Daily, Holly Allen MD, 1 00 mg at 12/17/20 0815 tramadoL (ULTRAM) tablet 100 mg, 100 mg, Oral, Q8H PRN, Bruce Samayoa MD, 10 0 mg at 12/17/20 134 trazodone (DESYREL) tablet 100 mg, 100 mg, Oral, Nightly, Holly Allen MD, 100 mg at 12/16/202054 REVIEW OF SYSTEMS Review of Systems Constitutional: Positive for malaise/fatigue. Negative for chills and fever. Respiratory: Negative for shortness of breath. Cardiovascular: Negative for chest pain and leg swelling. Gastrointestinal: Negative. Genitourinary: Positive for flank pain (at site of left kidney bx). Neurological: Positive for dizziness. Negative for headaches. PAIN LEVEL 09/08 EXAM BP (!) 150/94 (BP Location: Left arm, Patient position: Supine) | Pulse 87 | T emp 97.6 F (Temporal) | Resp 14 | Ht 1.778 m (5' 10") | Wt 92.6 kg (204 lb 1.6 oz) | SpO2 92% | BMI 29.29 kg/m Physical Exam Constitutional: General: He is not in acute distress. Appearance: Normal appearance. He is not ill-appearing. HENT: Head: Normocephalic and atraumatic. Cardiovascular: Rate and Rhythm: Normal rate and regular rhythm. Pulmonary: Effort: Pulmonary effort is normal. No respiratory distress. Breath sounds: Normal breath sounds. Abdominal: General: Bowel sounds are normal. Palpations: Abdomen is soft. Musculoskeletal: Right lower leg: No edema. Left lower leg: No edema. Skin: General: Skin is warm. Coloration: Skin is pale. Neurological: General: No focal deficit present. Mental Status: He is alert and oriented to person, place, and time. Psychiatric: Mood and Affect: Mood normal. Behavior: Behavior normal. Thought Content: Thought content normal. Judgment: Judgment normal. LABS No lab components to display Most Recent Result within the last 7 days Lab Units 12/17/2032012/16/2015812/14/20 0300 SODIUM MEQ/L 135 134 136 POTASSIUM MEQ/L 3.3* 3.7 4.6 CHLORIDE MEQ/L 105 104 114* CARBON DIOXIDE MEQ/L 33* 33* 19* BLOOD UREA NITROGEN mg/dL 36* 37* 41* CREATININE mg/dL 3.7* 3.5* 4.0* GLUCOSE mg/dL 127* 174* 84 CALCIUM mg/dL 7.9* 7.7* 7.9* Most Recent Result within the last 7 days Lab Units 12/17/2032012/16/20 01512/14/20 0300 WBC TH/uL 5.84 6.88 5.38 HEMOGLOBIN g/dL 7.3* 7.1* 7.4* HEMATOCRIT % 22* 22* 24* PLATELET COUNT TH/uL 205 217 216 IMAGING Imaging as listed below has been reviewed: US Guided Biopsy Kidney Result Date: 12/17/2020 Successful ultrasound-guided core needle biopsy of the [...] Conscious sedation achieved with Versed and fentanyl. ASSESSMENT AND PLAN Lupus Anticoagulant - DRVVT + on 11/27/2020 Renal dysfunction Bladder Wall Thickening Retroperitoneal Adenopathy Reviewed negative scrotal US and CT head results with patient. Encouraged outpa tient urology follow up as planned for further evaluation of bladder wall thicke lucía and retroperitoneal adenopathy. In regard to the positive DRVVT test, he needs repeat testing in ~ 12 weeks. If this is confirmed as positive he would be a candidate for lifelong anticoagulat ion given positive testing as well as his history of CVA. He has seen hematolog y before at and may follow up with them or with our practice if he prefers. For now, no further hematology recommendations. Patient status and plan of care discussed with Dr. Fan. Hematology will sign off but we remain available should new questions arise. . Electronically signed by Marylu Stephenson, CLARK, RN, LOG DATA TECHNICIAN-BC 12/17/2020 * Carlos Hsieh MD - 12/17/2020 12:32 PM CDT [facility] - Progress Note MD Mike Brown MD Achal Desai, MD Kristine Herron, MD Richard Schumacher Suleiman Daifallah, MD Archana Goel MD Encounter Date: 12/17/2020 12:32 PM Patient Demographic Information: Patient Name: Sommer Gibsonor Age: 45 y.o. Sex: male Date of : 1975 Current Admission: Admit Date: 12/12/2020 Admitting Physician: Krys Man MD Length of Stay: 5 Days Note Author: Carlos Hsieh Asked to see patient for: ARF/ CKD stage III Fluid and Electrolytes mangemen t Patient Active Problem List Diagnosis SNOMED CT(R) VALERIE (acute kidney injury) (HCC) ACUTE INJURY OF KIDNEY Type 1 diabetes mellitus with hyperglycemia (HCC) HYPERGLYCEMIA DUE TO TYPE 1 DIABETES MELLITUS Hypertension HYPERTENSIVE DISORDER Vaccine counseling COUNSELING PROCEDURE WITH EXPLICIT CONTEXT Depression DEPRESSIVE DISORDER Noncompliance with diabetes treatment NONCOMPLIANCE WITH TREATMENT Tobacco abuse 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 Urinary tract infection without hematuria URINARY TRACT INFECTIOUS DISEASE Acute kidney injury superimposed on chronic kidney disease (HCC) ACUTE RENAL FAILURE SYNDROME Anemia ANEMIA Nephrolithiasis KIDNEY STONE Dyslipidemia DYSLIPIDEMIA Nephrotic syndrome NEPHROTIC SYNDROME Headache, unspecified headache type HEADACHE CURRENT ACTIVE MEDICATIONS: dextrose 5 % and sodium chloride 0.45 % 50 mL/hr (12/17/20 0928) sodium chloride 0.9 % 50 mL/hr (12/16/20 1521) amLODIPine 10 mg Oral Daily atorvastatin 20 mg Oral Nightly calcium acetate(phosphat bind) 1,334 mg Oral TID with meals caRVEDILoL 6.25 mg Oral BID with meals cefazolin 1 g Intravenous Daily gabapentin 200 mg Oral TID heparin (porcine) 1,000-5,000 Units Intra-Catheter Once in dialysis hydrALAZINE 100 mg Oral Q8H insulin detemir U-100 10 Units Subcutaneous Nightly insulin lispro 2-7 Units Subcutaneous 4 times daily before meals and nightl y lactobacillus 1 capsule Oral Daily multiple vitamins B complex with C 1 tablet Oral QPM QUEtiapine 50 mg Oral Nightly sertraline 100 mg Oral Daily trazodone 100 mg Oral Nightly acetaminophen, ALPRAZolam, gdwcoibflc-yfjkgrmpwkflr-henqjqxj, cyclobenzaprine, d extrose 50%, glucagon OR glucagon, glucose, magnesium sulfate, ondansetron, tramadoL Blood Pressure: BP: (!) 150/94 Pulse: Pulse: 87 Temperature: Temp: 36.4 C (97.6 F) Respirations: Resp: 14 Admission Weight: Weight: 88.5 kg (195 lb) O2 Saturation: SpO2: 92 % Today's Weight: Weight: 92.6 kg (204 lb 1.6 oz) BMI: Body mass index is 29.29 kg /m. Intake/Output Summary (Last 24 hours) at 12/17/2020 1232 Last data filed at 12/16/2020 2100 Gross per 24 hour Intake 420 ml Output 800 ml Net -380 ml Most Recent Result within the last 7 days Lab Units 12/17/20 0321 12/16/20 0159 12/14/20 0300 12/13/20 0312 SODIUM MEQ/L 135 134 136 138 POTASSIUM MEQ/L 3.3* 3.7 4.6 4.6 CHLORIDE MEQ/L 105 104 114* 119* CARBON DIOXIDE MEQ/L 33* 33* 19* 16* BLOOD UREA NITROGEN mg/dL 36* 37* 41* 47* CREATININE mg/dL 3.7* 3.5* 4.0* 4.3* GLUCOSE mg/dL 127* 174* 84 142* CALCIUM mg/dL 7.9* 7.7* 7.9* 7.6* ALBUMIN g/dL 2.5* 2.5* 2.3* 2.5* MAGNESIUM mg/dL 1.8 1.7 1.7 -- PHOSPHORUS mg/dL 5.5* 5.2* 7.1* 6.7* HEMOGLOBIN g/dL 7.3* 7.1* 7.4* 7.6* HEMATOCRIT % 22* 22* 24* 24* PLATELET COUNT TH/uL 205 217 216 241 Subjective: Patient is status post kidney biopsy and recheck of his temporary di alysis catheter. He is feeling about 30-40% better than when he first came in. Still has some generalized aches and pains, mostly myalgias and a generally ill feeling like recovering flu. Patient reports minimal discomfort at biopsy site ROS: GEN: no Fevers noChills RESP: no SOB no Cough CVS: no CP no PRATHER ( Pt not ambulated) GI: Some nausea yesterday no Vomiting no Diarrhea : no Dysuria no Urgency Physical Exam: GENERAL Awake, Alert Oriented x 3 In NAD HEAD: NCAT No obvious wounds EYES: SCLERA: Anicteric Conjunctiva: Normal ENT: Mucous Membranes Moist No Active Ear/ Nasal Drainage NECK: Supple no JVD no JVP LUNGS: Clear to Auscultation No Rales No Rhonchi Good Air Entry Bilaterally HEART: S1 S2 No Obvious Murmur No Gallop No RUB Edema: none ABD: NT ND No Palpable HS Megaly on my exam + Bowel sounds : Minimal CVA Tenderness (post biopsy) no Suprapubic Tenderness No results found. No results found. Assessment and Plan: Possible CKD Stage 2/3 at baseline with creatinine 1-1.1 if proteinuria was pers istent presumably associated with type 1 diabetes Right kidney pyelonephritis: Being treated by infectious disease specialist and also followed by urology ARF with nephrotic syndrome: Per infectious disease specialist possible pyelon ephritis of the right kidney also. Await kidney biopsy was done earlier today. We will hold off of dialysis at this time. Watch trend of creatinine and urine output. No ongoing uremic signs symptoms at this time Low potassium: Supplementation as ordered. Magnesium is adequate Nephrotic syndrome: Await results of kidney biopsy. Suspect associated with typ e 1 diabetes [place] metabolic acidosis: Anticipate correction with dialysis Nonobstructing renal calculi on previous CT. urology following patient HyperTN: Current Medication list reviewed; as needed blood pressure medications if needed Anemia in the setting of Renal Failure:: RhuEPO will be Ordered if needed to maintain Hemoglobin in 10-11 range Minimal HyperPhosphatemia of Renal Failure: Continue current regimen o f Binders; Will continue to monitor and alter doses based on PO intake Type 1 diabetes: Defer to primary team, consider endocrinology evaluation Anemia: One-time erythropoietin will be ordered at this time. Once he is back o n his aspirin and if few days, we shall reinitiate erythropoietin on 3 times wee kly basis Discussed with at bedside Renal related Labs, imaging studies were reviewed, Meds interventions and plan d iscussed with patient and family at bedside. Questions answered to their satisfa ction. This note was partially created using [employer] voice recognition software in a spa ce with significant background noise and ongoing conversation (which is beyond m y control). I have diligently proof read the note to the best of my ability but errors due to bread wrapper software may be missed. Any such errors are unintent ional and I will be happy to clarify if brought to my attention (even at a later date) Electronically signed by: Carlos Hsieh 12/17/2020, 12:32 PM * Bruce Samayoa MD - 12/17/2020 9:54 AM CDT [facility] Patient Name: Sommer Callahan Account No: [id number] Date of : 1975 Date of Admission: 12/12/2020 5:55 PM Subjective Follow up regarding acute kidney injury. Patient denies any complaints. He is currently awaiting renal biopsy, blood sugars running low ROS Pertinent positives: Headache, left earache, generalized weakness Pertinent negatives: Fever, chills, dysuria All other systems reviewed and are negative. Objective Vital Signs: Temp: 36.6 C (97.9 F) Pulse: 87 Resp: 14 BP: 123/72 SpO2: 91 % Height: 177.8 cm (5' 10") Weight: 92.6 kg (204 lb 1.6 oz) I/O last 24 Hours: In: - Out: 2400 [Urine:2400] Physical Exam Constitutional: Appearance: Normal appearance. HENT: Head: Comments: Bilateral frontal and mastoid sinus tenderness present Neck: Comments: Temporary hemodialysis catheter Cardiovascular: Rate and Rhythm: Normal rate and regular rhythm. Pulses: Normal pulses. Heart sounds: Normal heart sounds. Pulmonary: Effort: Pulmonary effort is normal. Breath sounds: Normal breath sounds. Neurological: General: No focal deficit present. Mental Status: He is alert and oriented to person, place, and time. Mental st atus is at baseline. I have personally reviewed the patient's vital signs, laboratory/pathology/cultu re results (as indicated), imaging studies (results were not discussed with the performing provider), current inpatient medications and telecommunications support notes with pertainent findings noted within the assessment/plan. I have personally reviewe d the patient's past medical, surgical, family, or social history and there were no changes reported. Assessment/Plan Mr. Sommer Callahan is a 45 y.o. male who was admitted on 12/12/2020 with complaint of Abdominal Pain. Problems addressed with today's visit include: * Acute kidney injury superimposed on chronic kidney disease (HCC) -Cr reported to be 1-1.3 in 04/2020 -Progressive worsening with signs of nephrotic syndrome -Status post right IJ temporary hemodialysis catheter placement -Pending renal biopsy -Nephrology on board, issues with hemodialysis catheter, so far could not recei ve hemodialysis however patient with good urine output and creatinine improving, defer to nephrology Type 1 diabetes mellitus with hyperglycemia (HCC) -A1C 12.4 on 11/26/20 -Resumed Levemir -Additional sliding scale insulin coverage. Nephrotic syndrome -UA consistent with nephrotic syndrome -Per nephrology Urinary tract infection without hematuria -Discharged on 05/28. Urine culture grew MSSA -Follow-up on urine and blood cultures -Started on Ancef per ID -Appreciate urology consult, no active intervention for nephrolithiasis Hypertension -Resumed home dose of amlodipine, Coreg, hydralazine -Reasonably controlled, uptitrate the dose of amlodipine Headache, unspecified headache type -With sinus tenderness -CT head consistent with mastoiditis -Already on Ancef Dyslipidemia -Resumed home statin Nephrolithiasis -Urology recommended outpatient follow-up Anemia -Could be related to renal disease iron studies unremarkable -EPO per nephrology -Transfuse to keep hemoglobin more than 7 See my orders for additional details regarding this patients treatment plan. Expected Discharge Date The patient's expected discharge date has not been determined. Anticipated Discharge Destination The patient's anticipated discharge destination is [facility]. Room: [address] [place] [address] Diet: Diet-Hemodialysis, Consistent Carbohydrate Diet NPO VTE Prevention: Appropriate VTE mechanical treatment ordered. Code Status: Full Code Yanez Catheter: N/A Scheduled Meds: amLODIPine 10 mg Oral Daily atorvastatin 20 mg Oral Nightly calcium acetate(phosphat bind) 1,334 mg Oral TID with meals caRVEDILoL 6.25 mg Oral BID with meals cefazolin 1 g Intravenous Daily epoetin nnamdi-epbx (RETACRIT) injection 10,000 Units Subcutaneous Once gabapentin 200 mg Oral TID heparin (porcine) 1,000-5,000 Units Intra-Catheter Once in dialysis hydrALAZINE 100 mg Oral Q8H insulin detemir U-100 10 Units Subcutaneous Nightly insulin lispro 2-7 Units Subcutaneous 4 times daily before meals and nightl y lactobacillus 1 capsule Oral Daily multiple vitamins B complex with C 1 tablet Oral QPM potassium chloride 40 mEq Oral BID QUEtiapine 50 mg Oral Nightly sertraline 100 mg Oral Daily trazodone 100 mg Oral Nightly Continuous Infusions: dextrose 5 % and sodium chloride 0.45 % 50 mL/hr (12/17/20 0776) PRN Meds: acetaminophen, ALPRAZolam, pyyftywzhg-ebjfavpozqkga-cwgsqzpp, cyclobenzaprine, d extrose 50%, glucagon OR glucagon, glucose, HYDROcodone-acetaminophen, magne sium sulfate, ondansetron, tramadoL Bruce Samayoa MD [facility] Medicine Division . * Bruce Samayoa MD - 12/16/2020 11:08 AM CDT [facility] Patient Name: Sommer Callahan Account No: [id number] Date of : 1975 Date of Admission: 12/12/2020 5:55 PM Subjective Follow up regarding acute kidney injury. Patient denies any complaints. No ove rnight events other than headache which was controlled with Fioricet. He is hav ing good urine output. ROS Pertinent positives: Headache, left earache, generalized weakness Pertinent negatives: Fever, chills, dysuria All other systems reviewed and are negative. Objective Vital Signs: Temp: 36.6 C (97.9 F) Pulse: 97 Resp: 20 BP: (!) 172/103 SpO2: 93 % Height: 177.8 cm (5' 10") Weight: 92.8 kg (204 lb 9.6 oz) I/O last 24 Hours: In: 1920 [P.O.:720; I.V.:1200] Out: 2150 [Urine:2150] Physical Exam Constitutional: Appearance: Normal appearance. HENT: Head: Comments: Bilateral frontal and mastoid sinus tenderness present Neck: Comments: Temporary hemodialysis catheter Cardiovascular: Rate and Rhythm: Normal rate and regular rhythm. Pulses: Normal pulses. Heart sounds: Normal heart sounds. Pulmonary: Effort: Pulmonary effort is normal. Breath sounds: Normal breath sounds. Neurological: General: No focal deficit present. Mental Status: He is alert and oriented to person, place, and time. Mental st atus is at baseline. I have personally reviewed the patient's vital signs, laboratory/pathology/cultu re results (as indicated), imaging studies (results were not discussed with the performing provider), current inpatient medications and telecommunications support notes with pertainent findings noted within the assessment/plan. I have personally reviewe d the patient's past medical, surgical, family, or social history and there were no changes reported. Assessment/Plan Mr. Sommer Callahan is a 45 y.o. male who was admitted on 12/12/2020 with complaint of Abdominal Pain. Problems addressed with today's visit include: * Acute kidney injury superimposed on chronic kidney disease (HCC) -Cr reported to be 1-1.3 in 04/2020 -Progressive worsening with signs of nephrotic syndrome -Status post right IJ temporary hemodialysis catheter placement -Plans for renal biopsy tomorrow -Nephrology on board, issues with hemodialysis catheter, so far could not recei ve hemodialysis however patient with good urine output and creatinine improving, defer to nephrology Type 1 diabetes mellitus with hyperglycemia ([facility]) -A1C 12.4 on 11/26/20 -Resumed Levemir -Additional sliding scale insulin coverage. Nephrotic syndrome -UA consistent with nephrotic syndrome -Per nephrology Urinary tract infection without hematuria -Discharged on 05/28. Urine culture grew MSSA -Follow-up on urine and blood cultures -Started on Ancef per ID -Appreciate urology consult, no active intervention for nephrolithiasis Hypertension -Resumed home dose of amlodipine, Coreg, hydralazine -Reasonably controlled, uptitrate the dose of amlodipine Headache, unspecified headache type -With sinus tenderness -CT head consistent with mastoiditis -Already on Ancef Dyslipidemia -Resumed home statin Nephrolithiasis -Urology recommended outpatient follow-up Anemia -Could be related to renal disease iron studies unremarkable -EPO per nephrology -Transfuse to keep hemoglobin more than 7 See my orders for additional details regarding this patients treatment plan. Expected Discharge Date The patient's expected discharge date has not been determined. Anticipated Discharge Destination The patient's anticipated discharge destination is [facility]. Room: [address] [place] [address] Diet: Diet-Hemodialysis, Consistent Carbohydrate Diet NPO VTE Prevention: Appropriate VTE mechanical treatment ordered. Code Status: Full Code Yanez Catheter: N/A Scheduled Meds: amLODIPine 10 mg Oral Daily atorvastatin 20 mg Oral Nightly calcium acetate(phosphat bind) 1,334 mg Oral TID with meals caRVEDILoL 6.25 mg Oral BID with meals cefazolin 1 g Intravenous Daily gabapentin 200 mg Oral TID heparin (porcine) 1,000-5,000 Units Intra-Catheter Once in dialysis hydrALAZINE 100 mg Oral Q8H insulin detemir U-100 10 Units Subcutaneous Nightly insulin lispro 2-7 Units Subcutaneous 4 times daily before meals and nightl y lactobacillus 1 capsule Oral Daily multiple vitamins B complex with C 1 tablet Oral QPM QUEtiapine 50 mg Oral Nightly sertraline 100 mg Oral Daily trazodone 100 mg Oral Nightly Continuous Infusions: sodium chloride 0.9 % 50 mL/hr (12/16/20 1521) PRN Meds: acetaminophen, ALPRAZolam, ortwuucsql-imcxomsarejch-fypikwth, cyclobenzaprine, d extrose 50%, glucagon OR glucagon, glucose, magnesium sulfate, ondansetron, tramadoL Bruce Samayoa MD [facility] Medicine Division . * Gia David MD - 12/15/2020 5:26 PM CDT [facility] PROGRESS NOTE Encounter Date: 12/15/2020 5:26 PM Patient Demographic Information: Patient Name: Sommer Callahan Age: 45 y.o. Sex: male Date of : 1975 Current Admission: Admit Date: 12/12/2020 Admitting Physician: Krys Man MD Length of Stay: 3 Days Note Author: Gia David Asked to see patient for: ARF/ Fluid and Electrolytes mangement Patient Active Problem List Diagnosis SNOMED CT(R) VALERIE (acute kidney injury) (HCC) ACUTE INJURY OF KIDNEY Type 1 diabetes mellitus with hyperglycemia (HCC) HYPERGLYCEMIA DUE TO TYPE 1 DIABETES MELLITUS Hypertension HYPERTENSIVE DISORDER Vaccine counseling COUNSELING PROCEDURE WITH EXPLICIT CONTEXT Depression DEPRESSIVE DISORDER Noncompliance with diabetes treatment NONCOMPLIANCE WITH TREATMENT Tobacco abuse 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 Urinary tract infection without hematuria URINARY TRACT INFECTIOUS DISEASE Acute kidney injury superimposed on chronic kidney disease (HCC) ACUTE RENAL FAILURE SYNDROME Anemia ANEMIA Nephrolithiasis KIDNEY STONE Dyslipidemia DYSLIPIDEMIA Nephrotic syndrome NEPHROTIC SYNDROME Headache, unspecified headache type HEADACHE CURRENT ACTIVE MEDICATIONS: sodium bicarbonate infusion 100 mL/hr (12/15/20 0903) [START ON 12/16/2020] amLODIPine 10 mg Oral Daily atorvastatin 20 mg Oral Nightly calcium acetate(phosphat bind) 1,334 mg Oral TID with meals caRVEDILoL 6.25 mg Oral BID with meals cefazolin 1 g Intravenous Daily gabapentin 200 mg Oral TID heparin (porcine) 1,000-5,000 Units Intra-Catheter Once in dialysis hydrALAZINE 100 mg Oral Q8H insulin detemir U-100 10 Units Subcutaneous Nightly insulin lispro 2-7 Units Subcutaneous 4 times daily before meals and nightl y lactobacillus 1 capsule Oral Daily multiple vitamins B complex with C 1 tablet Oral QPM QUEtiapine 50 mg Oral Nightly sertraline 100 mg Oral Daily trazodone 100 mg Oral Nightly acetaminophen, ALPRAZolam, thorxciwae-maqjsbbctpcuc-rucvmvtr, cyclobenzaprine, d extrose 50%, glucagon OR glucagon, glucose, magnesium sulfate, ondansetron, tramadoL Blood Pressure: BP: (!) 159/69 Pulse: Pulse: 92 Temperature: Temp: 36.3 C (97.3 F) Respirations: Resp: 20 Admission Weight: Weight: 88.5 kg (195 lb) O2 Saturation: SpO2: 95 % Today's Weight: Weight: 92.6 kg (204 lb 2.3 oz) BMI: Body mass index is 29.29 kg /m. Most Recent Result within the last 7 days Lab Units 12/14/20 0300 12/13/20 0312 12/12/20 1816 SODIUM MEQ/L 136 138 140 POTASSIUM MEQ/L 4.6 4.6 5.1 CHLORIDE MEQ/L 114* 119* 119* CARBON DIOXIDE MEQ/L 19* 16* 18* BLOOD UREA NITROGEN mg/dL 41* 47* 48* CREATININE mg/dL 4.0* 4.3* 4.4* GLUCOSE mg/dL 84 142* 135* CALCIUM mg/dL 7.9* 7.6* 7.7* ALBUMIN g/dL 2.3* 2.5* 3.0* MAGNESIUM mg/dL 1.7 -- -- PHOSPHORUS mg/dL 7.1* 6.7* -- HEMOGLOBIN g/dL 7.4* 7.6* 8.4* HEMATOCRIT % 24* 24* 26* PLATELET COUNT TH/uL 216 241 291 Subjective: Pt feels fair. UO fair but not back to usual. No longer nauseated ROS: GEN: no Fevers noChills RESP: no SOB no Cough CVS: no CP no PRATHER ( Pt not ambulated) GI: no Nausea no Vomiting no Diarrhea : no Dysuria no Urgency Physical Exam: GENERAL Awake, Alert Oriented x 3 In NAD HEAD: NCAT No obv ious wounds EYES: SCLERA: Anicteric Co njunctiva: Normal ENT: Mucous Membranes Moist No Active Ear/ Nasal Drainage NECK: Supple no JVD n o JVP Temp HD cath in the right neck LUNGS: Clear to Auscultation Few rales R base No Rhonchi Good Air Entry Bilaterally HEART: S1 S2 No Obvious Murmur No Gallop No RUB Edema: Trace ABD: NT ND No Pal pable HS Megaly on my exam + Bowel sounds : No CVA Tenderness No Suprapubic Tenderness No results found. CT Head wo contrast Result Date: 12/13/2020 Impression: 1. Old area of encephalomalacia in the left parietal-occipital region. 2. There is some fluid in the left mastoid air cells. One or more of the following dose reduction techniques were utilized: *Automated exposure control (AEC) *Adjustment of mA and/or kV according to patient size -Use of iterative reconstruction technique -CT scan done according to AUBREY, or AUBREY/IMAGE GENTLY IR Non Tunneled Dialysis catheter placement Result Date: 12/13/2020 Successful placement of right internal jugular triple-lumen temporary hemodialysis catheter. US Scrotal Result Date: 12/13/2020 1. 4 mm x 3 mm x 4 mm right epididymal cyst. 2. Otherwise, negative ultrasound of the scrotum and testicles bilaterally. XR Chest single view frontal Result Date: 12/12/2020 No evidence of acute cardiopulmonary disease. Assessment and Plan: I was paged last PM by the acute HD nurse. She was unable to get HD cath to run with adequate blood flows. I requested a new HD cath. Per chart review, I see that the Acute HD nurse that was here earlier today also attempted to work with the catheter.(She did not page me to discuss). She was not able to get the cat heter to function, although it pulls and flushes apparently ok. I reviewed this situation with the pt's nurse by phone this afternoon. The atte calista had advised that IR will not perform procedure, unless it is an emergency. We will thus wait until Thursday unless deemed emergent. The pt has daily lab ordered but it was not drawn today and we will have to awai t labs tomorrow. He was aware that no one neena his blood, but nursing obviously not aware. The pt was advised to collect all urine. I&O has now been ordered. PossibleCKD Stage2/3 at baseline with creatinine 1-1.1 if proteinuria was pe rsistent presumably associated with type 1 diabetes Right kidney pyelonephritis: Being treated by infectious disease specialist and also followed by urology ARFwith nephrotic syndrome: Per infectious disease specialist possible pyel onephritis of the right kidney also. Proceed with initiation of dialysis but HD cath will not allow adequate blood flow. Catheter will need to be replaced or repositioned by IR on Thursday, unless needed emergently. Nephrotic syndrome: We will proceed with kidney biopsy on Thursday since he was on aspirin. More likely than not nephrotic syndrome is due to poorly controlled t ype 1 diabetes in the past however unless found to have ATN due to nephrotic syn drome, other etiologies of VALERIE cannot be ruled out Nongap metabolic acidosis: Anticipate correction with dialysis Persistent staph in the urine,: Appreciate infectious disease specialist input, assistance with management Nonobstructing renal calculi on previous CT. urology following patient HyperTN: Current Medication list reviewed;as needed blood pressure medicatio ns if needed Anemiain the settingof Renal Failure:: RhuEPO maybe needed to maintain H emoglobin in 10-11 range HyperPhosphatemia of Renal Failure:Continue current regime n of Binders; Will continue to monitor and alter doses based on PO intake Type 1 diabetes: Defer to primary team, consider endocrinology evaluation If IV contrast is required for CT imaging to delineate, identify source of infec tion: If benefits outweigh risks, this could be pursued with adequate counseling of the patient Labs, Meds interventions and plan discussed with patient. Questions answered to their satisfaction. Electronically signed by: Gia David 12/15/2020, 5:26 PM * Bruce Samayoa MD - 12/15/2020 1:51 PM CDT [facility] Patient Name: Sommer Callahan Account No: [id number] Date of : 1975 Date of Admission: 12/12/2020 5:55 PM Subjective Follow up regarding acute kidney injury. Headache has improved. No overnight e vents. Hemodialysis could not be done yesterday due to issues with HD catheter. ROS Pertinent positives: Headache, left earache, generalized weakness Pertinent negatives: Fever, chills, dysuria All other systems reviewed and are negative. Objective Vital Signs: Temp: 36.3 C (97.3 F) Pulse: 98 Resp: 20 BP: (!) 158/97 SpO2: 9 5 % Height: 177.8 cm (5' 10") Weight: 92.6 kg (204 lb 3.2 oz) I/O last 24 Hours: In: 950 [P.O.:650; Other:300] Out: 70 [Other:70] Physical Exam Constitutional: Appearance: Normal appearance. HENT: Head: Comments: Bilateral frontal and mastoid sinus tenderness present Neck: Comments: Temporary hemodialysis catheter Cardiovascular: Rate and Rhythm: Normal rate and regular rhythm. Pulses: Normal pulses. Heart sounds: Normal heart sounds. Pulmonary: Effort: Pulmonary effort is normal. Breath sounds: Normal breath sounds. Neurological: General: No focal deficit present. Mental Status: He is alert and oriented to person, place, and time. Mental st atus is at baseline. I have personally reviewed the patient's vital signs, laboratory/pathology/cultu re results (as indicated), imaging studies (results were not discussed with the performing provider), current inpatient medications and telecommunications support notes with pertainent findings noted within the assessment/plan. I have personally reviewe d the patient's past medical, surgical, family, or social history and there were no changes reported. Assessment/Plan Mr. Sommer Callahan is a 45 y.o. male who was admitted on 12/12/2020 with complaint of Abdominal Pain. Problems addressed with today's visit include: * Acute kidney injury superimposed on chronic kidney disease (HCC) -Cr reported to be 1-1.3 in 04/2020 -Progressive worsening with signs of nephrotic syndrome -Status post right IJ temporary hemodialysis catheter placement -Plans for renal biopsy next week -Nephrology on board, await hemodialysis; issues with hemodialysis catheter Type 1 diabetes mellitus with hyperglycemia (HCC) -A1C 12.4 on 11/26/20 -Resumed Levemir -Additional sliding scale insulin coverage. Nephrotic syndrome -UA consistent with nephrotic syndrome -Per nephrology Urinary tract infection without hematuria -Discharged on 3/29. Urine culture grew MSSA -Follow-up on urine and blood cultures -Started on Ancef per ID -Appreciate urology consult, no active intervention for nephrolithiasis Hypertension -Resumed home dose of amlodipine, Coreg, hydralazine -Reasonably controlled, uptitrate the dose of amlodipine Headache, unspecified headache type -With sinus tenderness -CT head consistent with mastoiditis -Already on Ancef Dyslipidemia -Resumed home statin Nephrolithiasis -Urology recommended outpatient follow-up Anemia -Could be related to renal disease iron studies unremarkable, See my orders for additional details regarding this patients treatment plan. Expected Discharge Date The patient's expected discharge date has not been determined. Anticipated Discharge Destination The patient's anticipated discharge destination is [facility] Self Care. Room: [address] [place] [address] Diet: Diet-Hemodialysis, Consistent Carbohydrate Diet NPO VTE Prevention: Appropriate VTE mechanical treatment ordered. Code Status: Full Code Yanez Catheter: N/A Scheduled Meds: [START ON 12/16/2020] amLODIPine 10 mg Oral Daily atorvastatin 20 mg Oral Nightly calcium acetate(phosphat bind) 1,334 mg Oral TID with meals caRVEDILoL 6.25 mg Oral BID with meals cefazolin 1 g Intravenous Daily gabapentin 200 mg Oral TID heparin (porcine) 1,000-5,000 Units Intra-Catheter Once in dialysis hydrALAZINE 100 mg Oral Q8H insulin detemir U-100 10 Units Subcutaneous Nightly insulin lispro 2-7 Units Subcutaneous 4 times daily before meals and nightl y lactobacillus 1 capsule Oral Daily multiple vitamins B complex with C 1 tablet Oral QPM QUEtiapine 50 mg Oral Nightly sertraline 100 mg Oral Daily trazodone 100 mg Oral Nightly Continuous Infusions: sodium bicarbonate infusion 100 mL/hr (12/15/20 0903) PRN Meds: acetaminophen, ALPRAZolam, eignqmhpxe-uqxnaaawrhqwp-fjgswupn, cyclobenzaprine, d extrose 50%, glucagon OR glucagon, glucose, magnesium sulfate, ondansetron, tramadoL Bruce Samayoa MD [facility] Medicine Division . * Isidoro Enriquez MD - 12/14/2020 5:32 PM CDT Chart checked Reviewed testicular US - no malignancy. CT head no mets * Carlos Hsieh MD - 12/14/2020 2:19 PM CDT [facility] - Progress Note MD Mike Brown MD Achal Desai, MD Kristine Herron, MD Richard Schumacher Suleiman Daifallah, MD Archana Goel MD Encounter Date: 12/14/2020 2:19 PM Patient Demographic Information: Patient Name: Sommer Gibsonor Age: 45 y.o. Sex: male Date of : 1975 Current Admission: Admit Date: 12/12/2020 Admitting Physician: Kyrs Man MD Length of Stay: 2 Days Note Author: Carlos Hsieh Asked to see patient for: ARF/ CKD stage III Fluid and Electrolytes mangemen t Patient Active Problem List Diagnosis SNOMED CT(R) VALERIE (acute kidney injury) (HCC) ACUTE INJURY OF KIDNEY Type 1 diabetes mellitus with hyperglycemia (HCC) HYPERGLYCEMIA DUE TO TYPE 1 DIABETES MELLITUS Hypertension HYPERTENSIVE DISORDER Vaccine counseling COUNSELING PROCEDURE WITH EXPLICIT CONTEXT Depression DEPRESSIVE DISORDER Noncompliance with diabetes treatment NONCOMPLIANCE WITH TREATMENT Tobacco abuse 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 Urinary tract infection without hematuria URINARY TRACT INFECTIOUS DISEASE Acute kidney injury superimposed on chronic kidney disease (HCC) ACUTE RENAL FAILURE SYNDROME Anemia ANEMIA Nephrolithiasis KIDNEY STONE Dyslipidemia DYSLIPIDEMIA Nephrotic syndrome NEPHROTIC SYNDROME Headache, unspecified headache type HEADACHE CURRENT ACTIVE MEDICATIONS: sodium bicarbonate infusion 100 mL/hr (12/14/20 0649) amLODIPine 5 mg Oral Daily atorvastatin 20 mg Oral Nightly calcium acetate(phosphat bind) 1,334 mg Oral TID with meals caRVEDILoL 6.25 mg Oral BID with meals cefazolin 1 g Intravenous Daily gabapentin 200 mg Oral TID heparin (porcine) 1,000-5,000 Units Intra-Catheter Once in dialysis hydrALAZINE 100 mg Oral Q8H insulin detemir U-100 10 Units Subcutaneous Nightly insulin lispro 2-7 Units Subcutaneous 4 times daily before meals and nightl y lactobacillus 1 capsule Oral Daily QUEtiapine 50 mg Oral Nightly sertraline 100 mg Oral Daily sodium bicarbonate 1,300 mg Oral BID trazodone 100 mg Oral Nightly acetaminophen, ALPRAZolam, dhyddnpgfg-jyybtauccqhtq-sssxiutl, cyclobenzaprine, d extrose 50%, glucagon OR glucagon, glucose, magnesium sulfate, ondansetron, tramadoL Blood Pressure: BP: (!) 161/84 Pulse: Pulse: 97 Temperature: Temp: 36.6 C (97.8 F) Respirations: Resp: 18 Admission Weight: Weight: 88.5 kg (195 lb) O2 Saturation: SpO2: 97 % Today's Weight: Weight: 90.3 kg (199 lb) BMI: Body mass index is 28.55 kg/m. Intake/Output Summary (Last 24 hours) at 12/14/2020 1419 Last data filed at 12/14/2020 1104 Gross per 24 hour Intake 280 ml Output 1200 ml Net -920 ml Most Recent Result within the last 7 days Lab Units 12/14/20 0300 12/13/20 0312 12/12/20 1816 SODIUM MEQ/L 136 138 140 POTASSIUM MEQ/L 4.6 4.6 5.1 CHLORIDE MEQ/L 114* 119* 119* CARBON DIOXIDE MEQ/L 19* 16* 18* BLOOD UREA NITROGEN mg/dL 41* 47* 48* CREATININE mg/dL 4.0* 4.3* 4.4* GLUCOSE mg/dL 84 142* 135* CALCIUM mg/dL 7.9* 7.6* 7.7* ALBUMIN g/dL 2.3* 2.5* 3.0* MAGNESIUM mg/dL 1.7 -- -- PHOSPHORUS mg/dL 7.1* 6.7* -- HEMOGLOBIN g/dL 7.4* 7.6* 8.4* HEMATOCRIT % 24* 24* 26* PLATELET COUNT TH/uL 216 241 291 Subjective: Patient claims he is feeling more or less the same currently. He is agreeable to proceeding with dialysis if it will make him feel better ROS: GEN: no Fevers noChills RESP: no SOB no Cough CVS: no CP no PRATHER ( Pt not ambulated) GI: no Nausea no Vomiting no Diarrhea : no Dysuria no Urgency Physical Exam: GENERAL Awake, Alert Oriented x 3 In NAD HEAD: NCAT No obvious wounds EYES: SCLERA: Anicteric Conjunctiva: Normal ENT: Mucous Membranes Moist No Active Ear/ Nasal Drainage NECK: Supple no JVD no JVP LUNGS: Clear to Auscultation No Rales No Rhonchi Good Air Entry Bilaterally HEART: S1 S2 No Obvious Murmur No Gallop No RUB Edema: none ABD: NT ND No Palpable HS Megaly on my exam + Bowel sounds : No CVA Tenderness No Suprapubic Tenderness No results found. CT Head wo contrast Result Date: 12/13/2020 Impression: 1. Old area of encephalomalacia in the left parietal-occipital region. 2. There is some fluid in the left mastoid air cells. One or more of the following dose reduction techniques were utilized: *Automated exposure control (AEC) *Adjustment of mA and/or kV according to patient size -Use of iterative reconstruction technique -CT scan done according to AUBREY, brissa BURGOS/IMAGE GENTLY IR Non Tunneled Dialysis catheter placement Result Date: 12/13/2020 Successful placement of right internal jugular triple-lumen temporary hemodialysis catheter. US Scrotal Result Date: 12/13/2020 1. 4 mm x 3 mm x 4 mm right epididymal cyst. 2. Otherwise, negative ultrasound of the scrotum and testicles bilaterally. XR Chest single view frontal Result Date: 12/12/2020 No evidence of acute cardiopulmonary disease. Assessment and Plan: Possible CKD Stage 2/3 at baseline with creatinine 1-1.1 if proteinuria was pers istent presumably associated with type 1 diabetes Right kidney pyelonephritis: Being treated by infectious disease specialist and also followed by urology ARF with nephrotic syndrome: Per infectious disease specialist possible pyelon ephritis of the right kidney also. Proceed with initiation of dialysis today Nephrotic syndrome: We will proceed with kidney biopsy on Thursday since he was on aspirin. More likely than not nephrotic syndrome is due to poorly controlled t ype 1 diabetes in the past however unless found to have ATN due to nephrotic syn drome, other etiologies of VALERIE cannot be ruled out Nongap metabolic acidosis: Anticipate correction with dialysis Persistent staph in the urine,: Appreciate infectious disease specialist input, assistance with management Nonobstructing renal calculi on previous CT. urology following patient HyperTN: Current Medication list reviewed; as needed blood pressure medications if needed Anemia in the setting of Renal Failure:: RhuEPO will be Ordered if needed to maintain Hemoglobin in 10-11 range HyperPhosphatemia of Renal Failure: Continue current regimen of Binder s; Will continue to monitor and alter doses based on PO intake Type 1 diabetes: Defer to primary team, consider endocrinology evaluation If IV contrast is required for CT imaging to delineate, identify source of infec tion: If benefits outweigh risks, this could be pursued with adequate counseling of the patient Discussed with at bedside Renal related Labs, imaging studies were reviewed, Meds interventions and plan d iscussed with patient and family at bedside. Questions answered to their satisfa ction. This note was partially created using [employer] voice recognition software in a spa ce with significant background noise and ongoing conversation (which is beyond m y control). I have diligently proof read the note to the best of my ability but errors due to bread wrapper software may be missed. Any such errors are unintent ional and I will be happy to clarify if brought to my attention (even at a later date) Electronically signed by: Carlos Hsieh 12/14/2020, 2:19 PM * Kun Stanton MD - 12/14/2020 12:33 PM CDT [facility] Infectious Disease Comprehensive Progress Note PATIENT NAME: Sommer Callahan DATE: 12/14/2020 AGE: 45 y.o. :[birth year] 75 CC: Subjective: Very fatigued but feels better. Flank pain resolved. Afebrile. ANTIBIOTICS Principal Problem: Acute kidney injury superimposed on chronic kidney disease (HCC) Active Problems: Type 1 diabetes mellitus with hyperglycemia (HCC) Hypertension Urinary tract infection without hematuria Anemia Nephrolithiasis Dyslipidemia Nephrotic syndrome Headache, unspecified headache type Scheduled Medications: amLODIPine 5 mg Oral Daily atorvastatin 20 mg Oral Nightly calcium acetate(phosphat bind) 1,334 mg Oral TID with meals caRVEDILoL 6.25 mg Oral BID with meals cefazolin 1 g Intravenous Daily gabapentin 200 mg Oral TID heparin (porcine) 1,000-5,000 Units Intra-Catheter Once in dialysis hydrALAZINE 100 mg Oral Q8H insulin detemir U-100 10 Units Subcutaneous Nightly insulin lispro 2-7 Units Subcutaneous 4 times daily before meals and nightl y lactobacillus 1 capsule Oral Daily QUEtiapine 50 mg Oral Nightly sertraline 100 mg Oral Daily sodium bicarbonate 1,300 mg Oral BID trazodone 100 mg Oral Nightly Continuous Infusions: sodium bicarbonate infusion 100 mL/hr (12/14/20 0649) Allergies Allergen Reactions Clindamycin Dizziness, Hypotension, Syncope and Hives Varenicline Hallucinations Patient notes experiencing hallucinations and mood changes w/ this medication. Opioids - Morphine Analogues Pt states morphine makes him aggressive and doesn't like taking it Metformin Abdominal Pain and Nausea And Vomiting Zolpidem Other reaction(s): sleep walking, UNKNOWN Intake/Output Summary (Last 24 hours) at 12/14/2020 1234 Last data filed at 12/14/2020 1104 Gross per 24 hour Intake 280 ml Output 1200 ml Net -920 ml I/O last 24 Hours: In: 240 [P.O.:240] Out: 775 [Urine:775] Wt Readings from Last 1 Encounters: 12/14/20 90.3 kg (199 lb) ROS: 10 system review performed; pertinent positives and negatives listed above otherwise negative. Past medical, family and social history reviewed and is unchanged from initial I D note in chart. Diabetes Profile: Lab Results Component Value Date HGBA1C 12.4 (H) 11/26/2020 GLU 84 12/14/2020 GLU 142 (H) 12/13/2020 GLU 135 (H) 12/12/2020 Liver Profile: Lab Results Component Value Date ALT 20 12/12/2020 AST 21 12/12/2020 ALKPHOS 74 12/12/2020 Hematologic Profile: Most Recent Result within the last 7 days Lab Units 12/14/20 0300 12/13/20 0312 12/12/20 1816 WBC TH/uL 5.38 6.31 7.21 HEMOGLOBIN g/dL 7.4* 7.6* 8.4* HEMATOCRIT % 24* 24* 26* PLATELET COUNT TH/uL 216 241 291 Metabolic Profile: Most Recent Result within the last 7 days Lab Units 12/14/20 0300 12/13/20 0312 12/12/20 1816 SODIUM MEQ/L 136 138 140 POTASSIUM MEQ/L 4.6 4.6 5.1 CHLORIDE MEQ/L 114* 119* 119* CARBON DIOXIDE MEQ/L 19* 16* 18* BLOOD UREA NITROGEN mg/dL 41* 47* 48* CREATININE mg/dL 4.0* 4.3* 4.4* CT Head wo contrast Result Date: 12/13/2020 Impression: 1. Old area of encephalomalacia in the left parietal-occipital region. 2. There is some fluid in the left mastoid air cells. One or more of the following dose reduction techniques were utilized: *Automated exposure control (AEC) *Adjustment of mA and/or kV according to patient size -Use of iterative reconstruction technique -CT scan done according to AURORARA, or AUBREY/IMAGE GENTLY IR Non Tunneled Dialysis catheter placement Result Date: 12/13/2020 Successful placement of right internal jugular triple-lumen temporary hemodialysis catheter. US Scrotal Result Date: 12/13/2020 1. 4 mm x 3 mm x 4 mm right epididymal cyst. 2. Otherwise, negative ultrasound of the scrotum and testicles bilaterally. XR Chest single view frontal Result Date: 12/12/2020 No evidence of acute cardiopulmonary disease. Images reviewed independently by me Most Recent Result within the last 7 days Lab Units 12/12/20 1747 MICROSCOPIC WBC URINE /hpf >40* LEUKOCYTE ESTERASE Positive* NITRITE URINE Positive* BACTERIA Small* MICROBIOLOGY Results for orders placed or performed during the hospital encounter of 12/12/20 Culture, Urine Collection Time: 12/12/20 5:47 PM Specimen: Clean Voided Urine - Isolate 1 >100,000 Cfu/ml (A) Isolate 1 Staphylococcus aureus (A) Isolate 1 Susceptibility To Follow (A) Culture, Blood Collection Time: 12/12/20 7:36 PM Specimen: Blood - Culture Result No growth at 1 day Culture, Blood Collection Time: 12/12/20 7:50 PM Specimen: Blood - Culture Result No growth at 1 day Physical Exam: Temp: [36.3 C (97.3 F)-36.7 C (98.1 F)] 36.6 C (97.8 F) Pulse: [91-105] 97 Resp: [16-20] 18 BP: (115-161)/(68-95) 161/84 General Appearance: no acute distress. Eyes: no scleral icterus, or conjunctival hemorrhage. HEENT: no sinus tenderness, no oral thrush. SKIN: no rashes or pathologic lesions. Lymphatic: no palpable cervical axillary or inguinal lymph nodes. Heart: Normal s1 s2, no audible murmurs. Lungs: clear to auscultations without wheezing or rales. MUSCULOSKELETAL:examined joints without effusion, normal ROM. NEUROLOGIC: grossly non focal. : no suprapubic tenderness or fullness, no external lesions, no CVA tenderness . ABDOMEN: soft, non tender, no rebound or guarding present bowel sounds, no palpa ble masses. PSYCHIATRIC: alert, oriented, no changes of anxiety or depression. Assessment/Plan: 1. Pyelonephritis of right kidney, presumed methicillin susceptible Staphylococ cus aureus infection. Improved 2. Poorly controlled diabetes mellitus 3. Acute kidney injury superimposed on chronic kidney disease 4. History of cerebrovascular accident (remote) 5. Status post appendectomy 6. Intolerance of clindamycin Plan 1. Continue cefazolin (dose reduced for level of renal function) 2. Anticipate that he will need a severalday course of intravenous antibioti c therapy Discussed with his Electronically signed by Kun Stanton 12/14/2020 12:34 PM * Bruce Samayoa MD - 12/14/2020 11:54 AM CDT [facility] Patient Name: Sommer Callahan Account No: [id number] Date of : 1975 Date of Admission: 12/12/2020 5:55 PM Subjective Follow up regarding acute kidney injury. Still complaining of headache and left sided ear pain. Abdominal pain has improved. ROS Pertinent positives: Headache, left earache, generalized weakness Pertinent negatives: Fever, chills, dysuria All other systems reviewed and are negative. Objective Vital Signs: Temp: 36.6 C (97.8 F) Pulse: 97 Resp: 18 BP: (!) 161/84 SpO2: 9 7 % Height: 177.8 cm (5' 10") Weight: 90.3 kg (199 lb) I/O last 24 Hours: In: - Out: 475 [Urine:475] Physical Exam Constitutional: Appearance: Normal appearance. HENT: Head: Comments: Bilateral frontal and mastoid sinus tenderness present Cardiovascular: Rate and Rhythm: Normal rate and regular rhythm. Pulses: Normal pulses. Heart sounds: Normal heart sounds. Pulmonary: Effort: Pulmonary effort is normal. Breath sounds: Normal breath sounds. Neurological: General: No focal deficit present. Mental Status: He is alert and oriented to person, place, and time. Mental st atus is at baseline. I have personally reviewed the patient's vital signs, laboratory/pathology/cultu re results (as indicated), imaging studies (results were not discussed with the performing provider), current inpatient medications and telecommunications support notes with pertainent findings noted within the assessment/plan. I have personally reviewe d the patient's past medical, surgical, family, or social history and there were no changes reported. Assessment/Plan Mr. Sommer Callahan is a 45 y.o. male who was admitted on 12/12/2020 with complaint of Abdominal Pain. Problems addressed with today's visit include: * Acute kidney injury superimposed on chronic kidney disease (HCC) -Cr reported to be 1-1.3 in 04/2020 -Progressive worsening with signs of nephrotic syndrome -Status post right IJ temporary hemodialysis catheter placement -Plans for renal biopsy next week -Nephrology on board, await hemodialysis Type 1 diabetes mellitus with hyperglycemia ([facility]) -A1C 12.4 on 11/26/20 -Resumed Levemir -Additional sliding scale insulin coverage. Nephrotic syndrome -UA consistent with nephrotic syndrome -Per nephrology Urinary tract infection without hematuria -Discharged on 05/28. Urine culture grew MSSA -Follow-up on urine and blood cultures -Started on Ancef per ID -Appreciate urology consult, no active intervention for nephrolithiasis Hypertension -Resumed home dose of amlodipine, Coreg, hydralazine -Reasonably controlled Headache, unspecified headache type -With sinus tenderness -CT head consistent with mastoiditis -Already on Ancef Dyslipidemia -Resumed home statin Nephrolithiasis -Urology recommended outpatient follow-up Anemia -Could be related to renal disease iron studies unremarkable, See my orders for additional details regarding this patients treatment plan. Expected Discharge Date The patient's expected discharge date has not been determined. Anticipated Discharge Destination The patient's anticipated discharge destination is Home Self Care. Room: [address] [place] [address] Diet: Diet-Hemodialysis, Consistent Carbohydrate Diet NPO VTE Prevention: Appropriate VTE mechanical treatment ordered. Code Status: Full Code Yanez Catheter: N/A Scheduled Meds: amLODIPine 5 mg Oral Daily atorvastatin 20 mg Oral Nightly calcium acetate(phosphat bind) 1,334 mg Oral TID with meals caRVEDILoL 6.25 mg Oral BID with meals cefazolin 1 g Intravenous Daily gabapentin 200 mg Oral TID heparin (porcine) 1,000-5,000 Units Intra-Catheter Once in dialysis hydrALAZINE 100 mg Oral Q8H insulin detemir U-100 10 Units Subcutaneous Nightly insulin lispro 2-7 Units Subcutaneous 4 times daily before meals and nightl y lactobacillus 1 capsule Oral Daily QUEtiapine 50 mg Oral Nightly sertraline 100 mg Oral Daily sodium bicarbonate 1,300 mg Oral BID trazodone 100 mg Oral Nightly Continuous Infusions: sodium bicarbonate infusion 100 mL/hr (12/14/20 0649) PRN Meds: acetaminophen, ALPRAZolam, cwyrhdphvv-izfyiejmmqukf-mghxvgsc, cyclobenzaprine, d extrose 50%, glucagon OR glucagon, glucose, magnesium sulfate, ondansetron, tramadoL Bruce Samayoa MD [facility] Medicine Division . * Nuvia Lagos NP - 12/14/2020 10:06 AM CDT [facility] Urology Progress Note Subjective: CC: Abdominal Pain Interval History: No acute events overnight. Scrotal US performed yesterday lee sly unremarkable. PVR 161cc. Voiding well, no urologic complaitns or LUTS at thi s time. IR placed temporary Right IJ HD catheter yesterday. Patient reports mild improve ment in abdominal pain. No nausea or vomiting but still continues to have diarrh ea. Spouse at bedside. REVIEW OF SYSTEMS: Constitutional: negative for fever and chills Respiratory: negative for shortness of breath Cardiovascular: negative for chest pain Gastrointestinal: positive diarrhea, occasional nasuea Objective: Vitals: BP (!) 146/87 (BP Location: Left arm, Patient position: Supine) | Pulse 97 | Temp 36.6 C (97.9 F) (Oral) | Resp 18 | Ht 1.778 m (5' 10") | Wt 9 0.3 kg (199 lb) | SpO2 96% | BMI 28.55 kg/m Intake/Output Summary (Last 24 hours) at 12/14/2020 1006 Last data filed at 12/13/2020 2108 Gross per 24 hour Intake 40 ml Output 900 ml Net -860 ml DVT Prophylaxis: Yes Labs: Last 3 CBC Results (within last 7 days): Most Recent Result within the last 7 days Lab Units 12/14/20 0300 12/13/20 03112/12/20 1816 WBC TH/uL 5.38 6.31 7.21 HEMOGLOBIN g/dL 7.4* 7.6* 8.4* HEMATOCRIT % 24* 24* 26* PLATELET COUNT TH/uL 216 241 291 Last 3 BMP Results (within the last 7 days): Most Recent Result within the last 7 days Lab Units 12/14/20 0300 12/13/20 0312 12/12/20 1816 SODIUM MEQ/L 136 138 140 POTASSIUM MEQ/L 4.6 4.6 5.1 CHLORIDE MEQ/L 114* 119* 119* CARBON DIOXIDE MEQ/L 19* 16* 18* BLOOD UREA NITROGEN mg/dL 41* 47* 48* CREATININE mg/dL 4.0* 4.3* 4.4* GLUCOSE mg/dL 84 142* 135* CALCIUM mg/dL 7.9* 7.6* 7.7* Physical Exam: General appearance: alert and no distress Back: no tenderness to percussion or palpation Lungs: non-labored Abdomen: soft, non-distended, non-tender Extremities: no edema, redness or tenderness in the calves or thighs Yanez: No * Voided urine in urinal yellow and clear Assessment/Plan: Principal Problem: Acute kidney injury superimposed on chronic kidney disease (HCC) Active Problems: Type 1 diabetes mellitus with hyperglycemia (HCC) Hypertension Urinary tract infection without hematuria Anemia Nephrolithiasis Dyslipidemia Nephrotic syndrome Headache, unspecified headache type LOS: 2 days 1. Urinary Tract Infection Afebrile. No leukocytosis 11/28/20 Urine culture >10K Cfu/mL MSSA Bladder wall thickening consistent with cystitis seen on 11/26/20 NCCT ABD/Pel vis 12/12/20 UA with Micro consistent with UTI Urine culture in process Blood cultures in process Continue IV Rocephin while waiting for culture result to finalize Maintain adequate control of blood sugars Daily probiotic Consider initiation of D'Mannose upon discharge if sugars well controlled 2. Nephrolithiasis History of Right URS for 7mm stone approximately 7 years ago Last spontaneously passed stone a few months ago 11/26/20 NCCT ABD/Pelvis negative for ureteral calculi, left lower pole 2mm no n-obstructing renal calculus No flank pain or gross hematuria noted No acute urologic intervention warranted at this time Follow-up outpatient with established urologist or our office for management 3. ARF Concern for nephrotic syndrome Do not suspect ARF urologic in etiology PVR 161cc No hydronephrosis or evidence of obstruction seen on Renal Ultrasounds or CT performed during recent hospitalization Current admission creatinine 4.4, improved to 4.0 today Baseline approximately 1.1 - 1.3 S/p temporary right IJ HD catheter by IR yesterday Plan for renal biopsy Thursday 4. Retroperitoneal Adenopathy Scrotal US unremarkable Do not suspect adenopathy urologic in etiology Urology to sign off. We will be available for any future questions or concerns. Greater than 25 minutes spent with patient with over 50% of time in direct face to face counseling. Counselled in detail about disease process, current treatment and follow up in t his case specifically. PPE Statement: Nuvia Lagos NP used Yellow precautions (Level 3 mask, eye prot ection, and gloves). Electronically signed by Nuvia Lagos 12/14/2020 10:06 AM * Carlos Hsieh MD - 12/13/2020 6:15 PM CDT [facility] - Progress Note MD Mike Brown MD Achal Desai, MD Kristine Herron, MD Richard Schumacher Suleiman Daifallah, MD Archana Goel MD Encounter Date: 12/13/2020 6:15 PM Patient Demographic Information: Patient Name: Sommer Gibsonor Age: 45 y.o. Sex: male Date of : 1975 Current Admission: Admit Date: 12/12/2020 Admitting Physician: Krys Man MD Length of Stay: 1 Days Note Author: Carlos Hsieh Asked to see patient for: ARF/ CKD stage III Fluid and Electrolytes mangemen t Patient Active Problem List Diagnosis SNOMED CT(R) VALERIE (acute kidney injury) (HCC) ACUTE INJURY OF KIDNEY Type 1 diabetes mellitus with hyperglycemia (HCC) HYPERGLYCEMIA DUE TO TYPE 1 DIABETES MELLITUS Hypertension HYPERTENSIVE DISORDER Vaccine counseling COUNSELING PROCEDURE WITH EXPLICIT CONTEXT Depression DEPRESSIVE DISORDER Noncompliance with diabetes treatment NONCOMPLIANCE WITH TREATMENT Tobacco abuse 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 Urinary tract infection without hematuria URINARY TRACT INFECTIOUS DISEASE Acute kidney injury superimposed on chronic kidney disease (HCC) ACUTE RENAL FAILURE SYNDROME Anemia ANEMIA Nephrolithiasis KIDNEY STONE Dyslipidemia DYSLIPIDEMIA Nephrotic syndrome NEPHROTIC SYNDROME Headache, unspecified headache type HEADACHE CURRENT ACTIVE MEDICATIONS: amLODIPine 5 mg Oral Daily atorvastatin 20 mg Oral Nightly caRVEDILoL 6.25 mg Oral BID with meals cefazolin 1 g Intravenous Daily gabapentin 200 mg Oral TID heparin (porcine) 1,000-5,000 Units Intra-Catheter Once in dialysis hydrALAZINE 100 mg Oral Q8H insulin detemir U-100 10 Units Subcutaneous Nightly insulin lispro 2-7 Units Subcutaneous 4 times daily before meals and nightl y QUEtiapine 50 mg Oral Nightly sertraline 100 mg Oral Daily trazodone 100 mg Oral Nightly acetaminophen, ALPRAZolam, cyclobenzaprine, dextrose 50%, glucagon OR glucag on, glucose, ondansetron, tramadoL Blood Pressure: BP: (!) 140/79 Pulse: Pulse: (!) 105 Temperature: Temp: 36.4 C (97.6 F) Respirations: Resp: 20 Admission Weight: Weight: 88.5 kg (195 lb) O2 Saturation: SpO2: 97 % Today's Weight: Weight: 91 kg (200 lb 9.9 oz) BMI: Body mass index is 28.79 kg/m . Intake/Output Summary (Last 24 hours) at 12/13/20201814 Last data filed at 12/13/2020 1448 Gross per 24 hour Intake 600 ml Output 1600 ml Net -1000 ml Most Recent Result within the last 7 days Lab Units 12/13/20 0312 10/13/21 1816 SODIUM MEQ/L 138 140 POTASSIUM MEQ/L 4.6 5.1 CHLORIDE MEQ/L 119* 119* CARBON DIOXIDE MEQ/L 16* 18* BLOOD UREA NITROGEN mg/dL 47* 48* CREATININE mg/dL 4.3* 4.4* GLUCOSE mg/dL 142* 135* CALCIUM mg/dL 7.6* 7.7* ALBUMIN g/dL 2.5* 3.0* PHOSPHORUS mg/dL 6.7* -- HEMOGLOBIN g/dL 7.6* 8.4* HEMATOCRIT % 24* 26* PLATELET COUNT TH/uL 241 291 Subjective: Patient claims he is feeling better currently. Nausea vomiting is be tter headaches are better and he has an intact appetite at this time. He has bee n evaluated by hematology oncology as well as by urology and infectious disease specialist. We discussed their findings ROS: GEN: no Fevers noChills RESP: no SOB no Cough CVS: no CP no PRATHER ( Pt not ambulated) GI: no Nausea no Vomiting no Diarrhea : no Dysuria no Urgency Physical Exam: GENERAL Awake, Alert Oriented x 3 In NAD HEAD: NCAT No obvious wounds EYES: SCLERA: Anicteric Conjunctiva: Normal ENT: Mucous Membranes Moist No Active Ear/ Nasal Drainage NECK: Supple no JVD no JVP LUNGS: Clear to Auscultation No Rales No Rhonchi Good Air Entry Bilaterally HEART: S1 S2 No Obvious Murmur No Gallop No RUB Edema: none ABD: NT ND No Palpable HS Megaly on my exam + Bowel sounds : No CVA Tenderness No Suprapubic Tenderness No results found. CT Head wo contrast Result Date: 12/13/2020 Impression: 1. Old area of encephalomalacia in the left parietal-occipital region. 2. There is some fluid in the left mastoid air cells. One or more of the following dose reduction techniques were utilized: *Automated exposure control (AEC) *Adjustment of mA and/or kV according to patient size -Use of iterative reconstruction technique -CT scan done according to AUBREY, or AUBREY/IMAGE GENTLY IR Non Tunneled Dialysis catheter placement Result Date: 12/13/2020 Successful placement of right internal jugular triple-lumen temporary hemodialysis catheter. US Scrotal Result Date: 12/13/2020 1. 4 mm x 3 mm x 4 mm right epididymal cyst. 2. Otherwise, negative ultrasound of the scrotum and testicles bilaterally. XR Chest single view frontal Result Date: 12/12/2020 No evidence of acute cardiopulmonary disease. Assessment and Plan: Possible CKD Stage 2/3 at baseline with creatinine 1-1.1 if proteinuria was pers istent presumably associated with type [address] scan had shown signs of cystitis: This has been evaluated by urology . ARF with nephrotic syndrome: Per infectious disease specialist possible pyelon ephritis of the right kidney also. Current fluid and electrolyte status does not necessitate emergent need for Dialysis: Will proceed with Dialysis in the morn ing Nephrotic syndrome: We will proceed with kidney biopsy on Thursday since he was on aspirin and took it yesterday [place]ap metabolic acidosis: Oral bicarbonate will be started for now. May need IV bicarb Persistent staph in the urine,: Appreciate infectious disease specialist input, assistance with management Nonobstructing renal calculi on previous CT. May need further evaluation if fel t to be associated with infection HyperTN: Current Medication list reviewed; as needed blood pressure medications if needed Anemia in the setting of Renal Failure:: RhuEPO will be Ordered if needed to maintain Hemoglobin in 10-11 range HyperPhosphatemia of Renal Failure: Continue current regimen of Binder s; Will continue to monitor and alter doses based on PO intake Type 1 diabetes: Defer to primary team, consider endocrinology evaluation If IV contrast is required for CT imaging to delineate, identify source of infec tion: If benefits outweigh risks, this could be pursued with adequate counseling of the patient Discussed with at bedside Renal related Labs, imaging studies were reviewed, Meds interventions and plan d iscussed with patient and family at bedside. Questions answered to their satisfa ction. This note was partially created using [employer] voice recognition software in a [facility] ce with significant background noise and ongoing conversation (which is beyond m y control). I have diligently proof read the note to the best of my ability but errors due to bread wrapper software may be missed. Any such errors are unintent ional and I will be happy to clarify if brought to my attention (even at a later date) Electronically signed by: Carlos Hsieh 12/13/2020, 6:15 PM * Bruce Samayoa MD - 12/13/2020 3:21 PM CDT [facility] Patient Name: Sommer Callahan Account No: [id number] Date of : 1975 Date of Admission: 12/12/2020 5:55 PM Subjective Follow up regarding acute kidney injury. Patient is complaining of headache. H e is also wanting to eat. ROS Pertinent positives: Headache, generalized weakness Pertinent negatives: Fever, chills, dysuria All other systems reviewed and are negative. Objective Vital Signs: Temp: 36.9 C (98.4 F) Pulse: (!) 103 Resp: 18 BP: (!) 150/95 Sp O2: 96 % Height: 177.8 cm (5' 10") Weight: 91 kg (200 lb 9.9 oz) I/O last 24 Hours: In: 600 [P.O.:600] Out: 1600 [Urine:1600] Physical Exam Constitutional: Appearance: Normal appearance. HENT: Head: Comments: Bilateral frontal sinus tenderness present Cardiovascular: Rate and Rhythm: Normal rate and regular rhythm. Pulses: Normal pulses. Heart sounds: Normal heart sounds. Pulmonary: Effort: Pulmonary effort is normal. Breath sounds: Normal breath sounds. Neurological: General: No focal deficit present. Mental Status: He is alert and oriented to person, place, and time. Mental st atus is at baseline. I have personally reviewed the patient's vital signs, laboratory/pathology/cultu re results (as indicated), imaging studies (results were not discussed with the performing provider), current inpatient medications and telecommunications support notes with pertainent findings noted within the assessment/plan. I have personally reviewe d the patient's past medical, surgical, family, or social history and there were no changes reported. Assessment/Plan Mr. Sommer Callahan is a 45 y.o. male who was admitted on 12/12/2020 with complaint of Abdominal Pain. Problems addressed with today's visit include: * Acute kidney injury superimposed on chronic kidney disease (HCC) -Cr reported to be 1-1.3 in 04/2020 -Progressive worsening with signs of nephrotic syndrome -Plans for temporary hemodialysis catheter placement and subsequent hemodialysis -Plans for renal biopsy -Nephrology on board Type 1 diabetes mellitus with hyperglycemia (HCC) -A1C 12.4 on 11/26/20 -Resumed Levemir -Additional sliding scale insulin coverage. Nephrotic syndrome -UA consistent with nephrotic syndrome -NPO at midnight for Renal Biopsy by IR Urinary tract infection without hematuria -Discharged on 05/28. Urine culture grew MSSA -Follow-up on urine and blood cultures -Continue Rocephin -Appreciate urology consult, no active intervention for nephrolithiasis -ID consult pending Hypertension -Resumed home dose of amlodipine, Coreg, hydralazine Headache, unspecified headache type -With sinus tenderness -Get CT head -Already on Rocephin Dyslipidemia -Resumed home statin Nephrolithiasis -Urology recommended outpatient follow-up Anemia -Could be related to renal disease iron studies unremarkable, See my orders for additional details regarding this patients treatment plan. Expected Discharge Date The patient's expected discharge date has not been determined. Anticipated Discharge Destination The patient's anticipated discharge destination is Home Self Care. Room: [place] [address] Diet: Diet-Hemodialysis, Consistent Carbohydrate Diet NPO VTE Prevention: Appropriate VTE mechanical treatment ordered. Code Status: Full Code Yanez Catheter: N/A Scheduled Meds: amLODIPine 5 mg Oral Daily atorvastatin 20 mg Oral Nightly caRVEDILoL 6.25 mg Oral BID with meals cefTRIAXone 1,000 mg Intravenous Daily gabapentin 200 mg Oral TID hydrALAZINE 100 mg Oral Q8H insulin detemir U-100 10 Units Subcutaneous Nightly insulin lispro 2-7 Units Subcutaneous 4 times daily before meals and nightl y QUEtiapine 50 mg Oral Nightly sertraline 100 mg Oral Daily trazodone 100 mg Oral Nightly Continuous Infusions: PRN Meds: acetaminophen, ALPRAZolam, cyclobenzaprine, dextrose 50%, glucagon OR glucag on, glucose, ondansetron, tramadoL Bruce Samayoa MD [facility] Medicine Division . documented in this encounter H&P Notes * Carlo Atkinson MD - 01/07/2021 8:32 AM SCREENING TECH INTERVAL RADIOLOGY INTERVAL H&P for PROCEDURE Date: 01/07/2021 History and Physical Reviewed Physical exam reviewed. No significant changes. Today's vital signs: BP (!) 154/98 (Patient position: Supine) | Pulse 78 | Temp 36.5 C (97.7 F) (Oral) | Resp 14 | Ht 1.778 m (5' 10") | Wt 83.7 kg (184 lb 8 oz) | SpO2 94 % | BMI 26.47 kg/m Consent obtained after explaining procedure, risks, and options; and after all q uestions answered. Evaluation performed prior to 12/25/2020 tunneled hemodialysi s catheter placement. ENING TECH * Carlo Atkinson MD - 12/17/2020 11:00 AM CDT INTERVAL RADIOLOGY INTERVAL H&P for PROCEDURE Date: 12/17/2020 History and Physical Reviewed Physical exam reviewed. No significant changes. Today's vital signs: BP (!) 150/94 (BP Location: Left arm, Patient position: Supine) | Pulse 87 | T emp 36.4 C (97.6 F) (Temporal) | Resp 14 | Ht 1.778 m (5' 10") | Wt 92.6 kg (204 lb 1.6 oz) | SpO2 92% | BMI 29.29 kg/m Consent obtained after explaining procedure, risks, and options; and after all q uestions answered * Holly Allen MD - 12/13/2020 2:22 PM CDT H&P was reviewed, the patient was examined, no change has occurred in the patient's condition since H&P completed. Consent obtained for temp HD catheter. Had ASA yesterday so bx will be delayed. Electronically signed by Holly Allen MD 12/13/2020 2:22 PM * Krys Man MD - 12/12/2020 7:53 PM CDT [facility] Patient Name: Sommer Callahan Account No: [id number] Date of : 1975 Date of Admission: 12/12/2020 5:55 PM Primary Care Physician: Carmelita Avila APRN; Subjective Chief Complaint: Abdominal Pain History of Present illness: Mr. Sommer Callahan is a 45 y.o. male with history of DM 1, anemia, HTN, CKD and nephrotic syndrome who was just discharged on 11/28/20 an d was treated with antibiotics for a UTI. Urine culture did grow MSSA. Over the past few days patient has been having a lot of nausea/vomtiing and back pain. Hi s urine became foul smelling. He presented to the ER. Nephrology saw him in the ER and had discussion and will plan to start dialysis in the am and have a biops y of his kidney. Blood work revealed Na 140, K 5.1, Cr 4.4, BUN 48, LFTs wnl, Hg b 8.4. ROS Pertinent positives: nausea/vomiting, back pain, fatigue, dysuria Pertinent negatives: Denies chest pain, shortness of breath, blood in urine or s tool. All other systems reviewed and are negative. Medical History Diagnosis Date Hypertension Stroke (HCC) 03/02/2019 Left parieto-occipital infarct Type 1 diabetes mellitus (HCC) 1998 Surgical History Procedure Laterality Date APPENDECTOMY SINUS SURGERY TONSILLECTOMY Family History Problem Relation Age of Onset Diabetes Mother Hypertension Mother Hypertension Father Colon cancer Maternal Grandfather Stomach cancer Paternal Grandfather Social History Tobacco Use Smoking status: Current Every Day Smoker Packs/day: 1.00 Years: 30.00 Pack years: 30.00 Smokeless tobacco: Current User Substance Use Topics Alcohol use: Not Currently Drug use: Never Allergies Allergies Allergen Reactions Clindamycin Dizziness, Hypotension, Syncope and Hives Varenicline Hallucinations Patient notes experiencing hallucinations and mood changes w/ this medication. Opioids - Morphine Analogues Pt states morphine makes him aggressive and doesn't like taking it Metformin Abdominal Pain and Nausea And Vomiting Zolpidem Other reaction(s): sleep walking, UNKNOWN Prior to Admission Medications Medication Sig ALPRAZolam (XANAX) 0.5 MG tablet Take 0.5 mg by mouth nightly as needed. amLODIPine (NORVASC) 5 MG tablet Take 5 mg by mouth daily. aspirin 81 MG chewable tablet Chew 81 mg daily. atorvastatin (LIPITOR) 20 MG tablet Take 20 mg by mouth nightly. caRVEDILoL (COREG) 12.5 MG tablet Take 0.5 tablets (6.25 mg total) by mouth 2 (t wo) times a day with meals. cholecalciferol, vitamin D3, 1,000 units(25 mcg) tablet Take 2,000 Units by mout h daily. cloNIDine HCL (CATAPRES) 0.1 mg tablet Take 1 tablet (0.1 mg total) by mouth 3 ( three) times a day. Hold till follow up with physician. cyanocobalamin (VITAMIN B-12) 50 mcg tablet Take 50 mcg by mouth daily. cyclobenzaprine (FLEXERIL) 10 MG tablet Take 10 mg by mouth 2 (two) times a day as needed for muscle spasms. gabapentin (NEURONTIN) 400 MG capsule Take 800 mg by mouth 3 (three) times a day . hydrALAZINE (APRESOLINE) 100 MG tablet Take 1 tablet (100 mg total) by mouth spencer ry 8 (eight) hours while awake. insulin detemir U-100 (LEVEMIR) 100 unit/mL injection Inject 10 Units under the skin nightly. insulin lispro (HUMALOG) 100 unit/mL injection Inject 1-10 Units under the skin 3 (three) times a day before meals. loratadine (CLARITIN) 10 mg tablet Take 10 mg by mouth daily as needed for aller gies. methylphenidate HCl (RITALIN) 10 MG tablet Take 10 mg by mouth 2 (two) times a d ay. methylphenidate HCl (RITALIN) 5 MG tablet Take 5 mg by mouth every morning. omega 3 fish oil (SEA OMEGA) DHA 200 mg-EPA 300 mg (1,000 mg) capsule Take 1 cap gallito by mouth daily. potassium chloride (KLOR-CON) 10 MEQ CR tablet Take 20 mEq by mouth 2 (two) time s a day. QUEtiapine (SEROQUEL) 50 MG tablet Take 50 mg by mouth nightly. sertraline (ZOLOFT) 100 mg tablet Take 100 mg by mouth daily. trazodone (DESYREL) 100 MG tablet Take 100 mg by mouth nightly. Objective Triage Vital Signs: Temp: 36.7 C (98 F) Pulse: (!) 106 Resp: 18 BP: (!) 152/ 92 SpO2: 99 % Height: 177.8 cm (5' 10") Weight: 88.5 kg (195 lb) Physical Exam Vitals reviewed. Constitutional: Appearance: He is well-developed. HENT: Head: Normocephalic and atraumatic. Nose: Nose normal. Mouth/Throat: Mouth: Mucous membranes are moist. Eyes: Extraocular Movements: Extraocular movements intact. Conjunctiva/sclera: Conjunctivae normal. Cardiovascular: Rate and Rhythm: Normal rate and regular rhythm. Pulses: Normal pulses. Heart sounds: Normal heart sounds. Pulmonary: Effort: Pulmonary effort is normal. Breath sounds: Normal breath sounds. Abdominal: General: Bowel sounds are normal. There is no distension. Palpations: Abdomen is soft. Comments: Diffuse abdominal tenderness Musculoskeletal: General: Normal range of motion. Cervical back: Normal range of motion. Skin: General: Skin is warm and dry. Neurological: General: No focal deficit present. Mental Status: He is alert and oriented to person, place, and time. Psychiatric: Mood and Affect: Mood normal. Behavior: Behavior normal. ECG personally reviewed with the following findings noted: sinus tachycardia I have personally reviewed the patient's vital signs, laboratory/pathology/cultu re results (as indicated), telemetry, current inpatient medications, industrial rehabilitation consultant notes and telecommunications support notes with pertainent findings noted within the assessme nt/plan. I have personally reviewed the patient's past medical, surgical, family , or social history and there were no changes reported. I have personally spoken with the patient, the patient's family/friend and nursing staff regarding this patient's case. Assessment/Plan Mr. Sommer Callahan is a 45 y.o. male who was admitted on 12/12/2020 with complaint of Abdominal Pain (pt reports having N/V/D intermittenly for the past couple of weeks and that has gotten worse over the past two days and he is having mid abd pain as well.). Problems addressed with today's visit include: * Acute kidney injury superimposed on chronic kidney disease (HCC) Cr reported to be 1-1.3 in 04/2020 Was just seen by Dr. Hsieh last admission Cr 3.4 on 11/28. On admission 4.4 Nephrology consulted. NPO at midnight for tunneled dialysis catheter placement Type 1 diabetes mellitus with hyperglycemia (HCC) A1C 12.4 on 11/26/20 Resume Levemir 10 units at night SSI level 3. Sugars ACHS Hypoglycemia protocol Nephrotic syndrome UA consistent with nephrotic syndrome NPO at midnight for Renal Biopsy by IR Urinary tract infection without hematuria Discharged on 05/28. Urine culture grew MSSA UA at admission: +LE, +Nitrite, >40 wbc, small bacteria Will obtain urine culture and blood culture Start IV Rocephin. Urology consult as patient does have a kidney stone but its nonobstructing on pa st CT Hypertension Resume home Coreg 6.25 mg BID and Norvasc 5 mg daily Dyslipidemia Resume home statin Nephrolithiasis Noted on previous CT. Will ask urology to consult if associated with UTI Anemia Hgb 8.4. only other lab is 8.9 Suspect related to renal disease Will trend In addition, see my orders for additional details regarding this patients treatm ent plan. Diet: Diet-Consistent Carbohydrate (90 gm) Diet NPO VTE Prevention: Appropriate VTE mechanical treatment ordered. Code Status: Full Code Advanced Care Planning The patient does not have an advanced directive. The patient's surrogate decisio n maker/DPOA is Jojo Callahan ([phone]). Disp: Admit the patient as Inpatient to [facility] with telemetry for treatmen t as noted above. Krys Man MD [facility] Medicine Division . * Carlos Hsieh MD - 12/12/2020 6:20 PM CDT [facility] MD Mike Brown MD Achal Desai, MD Kristine Herron, MD Richard Schumacher Suleiman Daifallah, MD Archana Goel MD Encounter Date: 12/12/2020 6:21 PM Patient Demographic Information: Patient Name: Sommer Callahan Age: 45 y.o. Sex: male Date of : 1975 Current Admission: Admit Date: 12/12/2020 Admitting Physician: No admitting provider for patient encounter. Length of Stay: 0 Days Note Author: Carlos Hsieh I have been requested by Dr. Kramer To evaluate and co-manage renal care/ for Sommer Callahan . HPI: Sommer is a pleasant 45-year-old gentleman with no self-reported h istory of renal insufficiency per se. He was last seen in our system about a ye ar and a half ago at that time his BUN was 27 creatinine was 0.9 and has recentl y as April 2020 his creatinines been running about 1.3. He is known to be a type I diabetic diagnosed at the age of 22 i.e. 23 years ago . He has been somewhat noncompliant with the same and previously A1c's have bee n as high as 16. He was admitted to our hospital as a transfer from [facility] in [facility] on 11/25/2020 with acute kidney injury and was noted to be grossly ne phrotic at that time with approximately 16 g of protein in his urine. His urine culture Lilia Harrison apparently had shown the presence of staph. There was s ome question about prostate/cystoscopy evaluation in the last few months. Hen e patient was treated with oral Zyvox and tells me that he started to get a francisco le better for the first 3 to 4 days. At time of discharge his creatinine had co me down to 3.4 from an admission creatinine of 4.2. He was followed up by his [facility] care provider whereby it was noted that his creatinine had gotten slightl y worse, Back to the 4 range. Over the last few days he has developed nausea vomiting and significant back wan n. He claims he was urinating adequately and was light but over the last 3 days has become increasingly foul-smelling and and somewhat dark in color He was asked to call our office and was seen by my nurse practitioner today to t he point where he was noted to be ill-appearing and sent to the ER for further e valuation of his renal dysfunction Past Medical History: Diagnosis Date Hypertension Stroke (HCC) 03/02/2019 Left parieto-occipital infarct Type 1 diabetes mellitus (HCC) 1998 Past Surgical History: Procedure Laterality Date APPENDECTOMY SINUS SURGERY TONSILLECTOMY Social History Socioeconomic History Marital status: Spouse name: Not on file Number of children: Not on file Years of education: Not on file Highest education level: Not on file Occupational History Not on file Tobacco Use Smoking status: Current Every Day Smoker Packs/day: 1.00 Years: 30.00 Pack years: 30.00 Smokeless tobacco: Current User Substance and Sexual Activity Alcohol use: Not Currently Drug use: Never Sexual activity: Not on file Other Topics Concern Not on file Social History Narrative Not on file Social Determinants of Health Financial Resource Strain: Difficulty of Paying Living Expenses: Food Insecurity: Worried About Running Out of Food in the Last Year: Ran Out of Food in the Last Year: Transportation Needs: Lack of Transportation (Medical): Lack of Transportation (Non-Medical): Physical Activity: Days of Exercise per Week: Minutes of Exercise per Session: Stress: Feeling of Stress : Social Connections: Frequency of Communication with Friends and Family: Frequency of Social Gatherings with Friends and Family: Attends Evangelical Services: Active Member of Clubs or Organizations: Attends Club or Organization Meetings: Marital Status: Intimate Partner Violence: Fear of Current or Ex-Partner: Emotionally Abused: Physically Abused: Sexually Abused: Family History Problem Relation Age of Onset Diabetes Mother Hypertension Mother Hypertension Father Colon cancer Maternal Grandfather Stomach cancer Paternal Grandfather (Not in a hospital admission) Current Facility-Administered Medications Medication Dose Route Frequency Provider Last Rate Last Admin cefTRIAXone (ROCEPHIN) injection 1,000 mg 1,000 mg Intravenous Daily Laila Kramer MD sodium chloride 0.9% (NS) IV Bolus 1,000 mL Intravenous Once Rafa aaron MD Current Outpatient Medications Medication Sig Dispense Refill ALPRAZolam (XANAX) 0.5 MG tablet Take 0.5 mg by mouth nightly as needed. amLODIPine (NORVASC) 5 MG tablet Take 5 mg by mouth daily. aspirin 81 MG chewable tablet Chew 81 mg daily. atorvastatin (LIPITOR) 20 MG tablet Take 20 mg by mouth nightly. caRVEDILoL (COREG) 12.5 MG tablet Take 0.5 tablets (6.25 mg total) by mouth 2 (two) times a day with meals. 60 tablet 2 cholecalciferol, vitamin D3, 1,000 units(25 mcg) tablet Take 2,000 Units by mouth daily. cloNIDine HCL (CATAPRES) 0.1 mg tablet Take 1 tablet (0.1 mg total) by mouth 3 (three) times a day. Hold till follow up with physician. cyanocobalamin (VITAMIN B-12) 50 mcg tablet Take 50 mcg by mouth daily. cyclobenzaprine (FLEXERIL) 10 MG tablet Take 10 mg by mouth 2 (two) times a day as needed for muscle spasms. gabapentin (NEURONTIN) 400 MG capsule Take 800 mg by mouth 3 (three) times a day. hydrALAZINE (APRESOLINE) 100 MG tablet Take 1 tablet (100 mg total) by mouth every 8 (eight) hours while awake. 90 tablet 2 insulin detemir U-100 (LEVEMIR) 100 unit/mL injection Inject 10 Units under the skin nightly. 10 mL 1 insulin lispro (HUMALOG) 100 unit/mL injection Inject 1-10 Units under the s kin 3 (three) times a day before meals. 10 mL 1 loratadine (CLARITIN) 10 mg tablet Take 10 mg by mouth daily as needed for a llergies. methylphenidate HCl (RITALIN) 10 MG tablet Take 10 mg by mouth 2 (two) times a day. methylphenidate HCl (RITALIN) 5 MG tablet Take 5 mg by mouth every morning. omega 3 fish oil (SEA OMEGA) DHA 200 mg-EPA 300 mg (1,000 mg) capsule Take 1 capsule by mouth daily. potassium chloride (KLOR-CON) 10 MEQ CR tablet Take 20 mEq by mouth 2 (two) times a day. QUEtiapine (SEROQUEL) 50 MG tablet Take 50 mg by mouth nightly. sertraline (ZOLOFT) 100 mg tablet Take 100 mg by mouth daily. trazodone (DESYREL) 100 MG tablet Take 100 mg by mouth nightly. Allergies Allergen Reactions Clindamycin Dizziness, Hypotension, Syncope and Hives Varenicline Hallucinations Patient notes experiencing hallucinations and mood changes w/ this medication. Metformin Abdominal Pain and Nausea And Vomiting Zolpidem Other reaction(s): sleep walking, UNKNOWN Results for orders placed or performed during the hospital encounter of 12/12/20 (from the past 24 hour(s)) Urinalysis Reflex Result Value Ref Range Appearance, Urine Yellow Glucose Urine 250 (A) Negative mg/dL Bilirubin Urine Negative Negative Ketones Urine Negative Negative mg/dL Specific [place], UA 1.025 1.001 - 1.030 Hemoglobin Urine Small (A) Negative PH Urine 6.0 5.0 - 8.0 Protein Urine Qual >300 (A) Negative mg/dL Urobilinogen Urine Negative Negative EU/dL Nitrite Urine Positive (A) Negative Leukocyte Esterase Positive (A) Negative Urinalysis Microscopic Only Result Value Ref Range Microscopic RBC Urine 0-5 0 - 5 /hpf Microscopic WBC Urine >40 (A) 0 - 5 /hpf Epithelial Cells Absent Absent Hyaline Cast Absent Absent Bacteria Small (A) Absent Patient Vitals for the past 24 hrs: BP Temp Temp src Pulse Resp SpO2 Height Weight 12/12/20 1731 (!) 152/92 36.7 C (98 F) Oral (!) 106 18 99 % 1.778 m (5' 10") 88.5 kg (195 lb) No intake or output data in the 24 hours ending 12/12/20 1821 ROS: 14 point review of systems is conducted with the patient is grossly negati ve other than as mentioned under HPI Physical Exam: GENERAL Awake, Alert Oriented x 3 In NAD HEAD: NCAT No obvious wounds EYES: SCLERA: Anicteric Conjunctiva: Normal ENT: Mucous Membranes Moist, poor dentition no Active Ear/ Nasal Drainage NECK: Supple no JVD no JVP LUNGS: Clear to Auscultation No Rales No Rhonchi Good Air Entry Bilaterally HEART: S1 S2 possible murmur No Gallop No RUB Edema: none ABD: NT ND No Palpable HS Megaly on my exam + Bowel sounds : No CVA Tenderness No Suprapubic Tenderness NEURO: Moves all 4 ext spontaneously and to command MU. SK: no Muscle Atrophy adequate ROM SKIN: No Obvious Rashes noted; no visible open wounds HEME: I was unable to palpate any obvious LAD at the Usual sites PSYCH: Not overtly depressed or actively hallucinating per se. No results found. No results found. Echocardiogram 11/27/2020: IMPRESSION 1. Lower limits normal left ventricular systolic function, with a calculated e jection fraction by 3D echo of 53%. 2. Moderate to severe concentric left ventricular hypertrophy. 3. Abnormal global longitudinal myocardial strain. -14 (Epiq) 4. No significant valvular abnormalities. 5. No previous study available for comparison. Yao Gomez MD (Electronically Signed) Final Date: 27 November 2020 11:06 CT scan of the abdomen pelvis without contrast on 11/26/2020 Kidneys and ureters: Tiny nonobstructing calculus in the lower pole of the left kidney measures 2 mm. Renal parenchyma otherwise normal in thickness. No significant hydronephrosis. 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 This was contemplated on his previous hospitalization however was not performed due to p ositive urine cultures and the fact that patient was on aspirin and had received it on day 2 of his hospitalization. No monoclonal gammopathy is noted Persistent staph in the urine,: We will consult ID. Discussed with Dr. Fajardo et and will change antibiotics to Rocephin for MSSA as was growing in his urine on his previous hospitalization here Nonobstructing renal calculi on previous CT. May need further evaluation if fel t to be associated with infection HyperTN: Current Medication list reviewed; as needed blood pressure medications if needed Anemia in the setting of Renal Failure:: RhuEPO will be Ordered if needed to maintain Hemoglobin in 10-11 range HyperPhosphatemia of Renal Failure: Continue current regimen of Binders; Will co ntinue to monitor and alter doses based on PO intake Type 1 diabetes: Defer to primary team, consider endocrinology evaluation If IV contrast is required for CT imaging to delineate, identify source of infec tion: If benefits outweigh risks, this could be pursued with adequate counseling of the patient Avoid nephrotoxic agents/ IV contrast - unless benefits outweigh risks Keep MAP>65 to keep adequate renal perfusion Dose medications per pharmacy for changing GFR (consider pharmacy consult for the same ) I appreciate the opportunity to participate in the care of this wonderful gentle man. Will Follow with you during this hospital stay. This note was partially created using [employer]ICE App voice recognition software in a spa ce with significant background noise and ongoing conversation (which is beyond m y control). I have diligently proof read the note to the best of my ability but errors due to bread wrapper software may be missed. Any such errors are unintent ional and I will be happy to clarify if brought to my attention (even at a later date) Carlos Hsieh, 12/12/2020 6:21 PM documented in this encounter Procedure Notes * Colby Jones RN - 12/24/2020 2:42 PM CDT Images from the original note were not included. Dialysis Treatment Time Medications Dose Volume Route Initials 1428 CVC - Pack with Heparin 2400 units 1.2 ml per port IC CJ Education Able to Educate Patient Yes Patient Procedural Explain Verbalizes Understanding Patient Information Patient Name Sommer Callahan Legal Sex Male Patient tolerated treatment: No issues. Treatment Time: 3.5 hours UF Removal: 1 L net Estimated Dry Weight: TBD Pre Weight: 83.7kg Pre Weight Source: bed Post Weight: 82.7kg Post Weight Source: pre weight - UF removed Hepatitis Verified by: Karina Jones RN Treatment Start Time: 1056 Treatment End Time: 1428 Most Recent Result within the last 7 days Lab Units 12/24/20 0500 12/22/20 0411 SODIUM mEq/L 142.0 136 POTASSIUM mEq/L 3.5 3.2* CHLORIDE MEQ/L -- 105 CALCIUM mg/dL 8.3 8.2* BLOOD UREA NITROGEN mg/dL 36* 29* Dialysis Orders (36h ago, onward) Start Ordered 12/24/20 1104 Hemodialysis inpatient Once Question Answer Comment K+ 3 mEq / liter Ca++ 2.5 mg Bicarb 35 mEq / liter Na+ 140 mEq / liter Na+ Modeling: No Dialyzer F180 Dialysate Temperature (C) 37 BFR-As tolerated to a maximum of: Best Flow DFR 600 mL/min Duration of Treatment 3.5 Hours Dry weight (kg) or fluid removal (L) 1 L Access Site Central Line 12/24/20 1104 PRE/POST HEMODIALYSIS VITALS (last 8 hours) Vitals - ThuDecember 24, 2020 Row Name 1430 1428 1415 1400 1345 Vital Signs Temp 36.9 C (98.4 F) -CJ at 12/24/20 1438 Temp src Oral -CJ at 12/24/20 1438 Pulse 89 -CJ at 12/24/20 1438 88 -CJ at 12/24/20 1438 85 -CJ at 12/24/20 141 7 84 -CJ at 12/24/20 1401 85 -CJ at 12/24/20 1346 Resp 16 -CJ at 12/24/20 1438 16 -CJ at 12/24/20 1438 16 -CJ at 12/24/20 1417 16 -CJ at 12/24/20 1401 15 -CJ at 12/24/20 1346 BP 146/95 -CJ at 12/24/20 1438 157/97 -CJ at 12/24/20 1438 159/89 -CJ at 1417 159/94 -CJ at 12/24/20 1401 151/87 -CJ at 12/24/20 1346 Weight 82.7 kg (182 lb 5.1 oz) -CJ at 12/24/20 1440 Row Name 1330 1315 1300 1230 1200 Vital Signs Pulse 84 -CJ at 12/24/20 1335 84 -CJ at 12/24/20 1316 84 -CJ at 12/24/20 130 3 84 -CJ at 12/24/20 1231 84 -CJ at 12/24/20 1209 Resp 15 -CJ at 12/24/20 1335 16 -CJ at 12/24/20 1316 18 -CJ at 12/24/20 1303 16 -CJ at 12/24/20 1231 16 -CJ at 12/24/20 1209 BP 151/96 -CJ at 12/24/20 1335 157/99 -CJ at 12/24/20 1316 157/89 -CJ at 1303 155/91 -CJ at 12/24/20 1231 149/91 -CJ at 12/24/20 1209 Row Name 1145 1130 1100 1056 1045 Vital Signs Temp 36.6 C (97.9 F) -CJ at 12/24/20 1049 Temp src Oral -CJ at 12/24/20 1049 Pulse 84 -CJ at 12/24/20 1200 83 -CJ at 12/24/20 1141 88 -CJ at 12/24/20 110 2 84 -CJ at 12/24/20 1101 95 -CJ at 12/24/20 1049 Resp 16 -CJ at 12/24/20 1200 16 -CJ at 12/24/20 1141 18 -CJ at 12/24/20 1102 18 -CJ at 12/24/20 1101 18 -CJ at 12/24/20 1049 BP 149/91 -CJ at 12/24/20 1200 149/94 -CJ at 12/24/20 1141 157/93 -CJ at 1102 157/95 -CJ at 12/24/20 1101 157/89 -CJ at 12/24/20 1049 Row Name 1040 0745 Vital Signs Temp 36.4 C (97.6 F) -BM at 12/24/20 0746 Temp src Oral -BM at 12/24/20 0746 Pulse 95 -BM at 12/24/20 0746 Heart Rate Source Pulse/O2 monitor -BM at 12/24/20 0746 SpO2 96 % -BM at 12/24/20 0746 Resp 18 -BM at 12/24/20 0746 BP 145/80 -BM at 12/24/20 0746 BP Location Left arm -BM at 12/24/20 0746 BP Method Machine (Non-invasive) -BM at 12/24/20 0746 Patient position Supine -BM at 12/24/20 0746 Weight 83.7 kg (184 lb 8.4 oz) -CJ at 12/24/20 1049 User Chang (r) = Recorded By, (t) = Taken By, (c) = Cosigned By Initials Name Colby Jones RN Laila Peña RN PRE-TREATMENT (last 8 hours) Hemodialysis Pre-Treatment - ThuDecember 24, 2020 Row Name 1040 Pre-Hemodialysis Assessment Patient Status Arrived -CJ at 12/24/20 1045 HD Pre-Treatment Hand-off Review of SBAR Completed Yes - at 12/24/20 1045 HD Pre-Treatment Report from Floor Nurse (name) Neha Peña RN - at 12/24/20 1049 HBsAg Results Negative -CJ at 12/24/20 1049 HBsAg Date Last Tested 12/20/20 -CJ at 12/24/20 1049 HBsAb Results Susceptible (<10) -CJ at 12/24/20 1049 HBsAb Date Last Tested 12/20/20 -CJ at 12/24/20 1049 Treatment Status Pending Start -CJ at 12/24/20 1159 Weight 83.7 kg (184 lb 8.4 oz) -CJ at 12/24/20 1049 Weight Source Bed -CJ at 12/24/20 1049 Correct Order/Script Yes -CJ at 12/24/20 1049 Correct Patient? Yes -CJ at 12/24/20 1049 Correct Site/Side? Yes -CJ at 12/24/20 1049 What Procedure? HD -CJ at 12/24/20 1049 [facility] Consent Verified Yes -CJ at 12/24/20 1049 pH 7.4 -CJ at 12/24/20 1049 Gross Bleach Negative Yes -CJ at 12/24/20 1049 Gross Bleach Check Time 1040 -CJ at 12/24/20 1049 Chlorine Negative Yes -CJ at 12/24/20 1049 Chlorine Check Time 1040 -CJ at 12/24/20 1049 Machine Temperature 37.9 C (100.2 F) -CJ at 12/24/20 1049 Dialyzer F-180 -CJ at 12/24/20 1049 Meter Conductivity 14 -CJ at 12/24/20 1049 HD Machine Conductivity 13.9 -CJ at 12/24/20 1049 Sodium Modeling NA -CJ at 12/24/20 1049 Dialysate Na (mEq/L) 140 mEq/L -CJ at 12/24/20 1049 Dialysate K (mEq/L) 3 mEq/L -CJ at 12/24/20 1049 Dialysate CA (mEq/L) 2.5 mEq/L -CJ at 12/24/20 1049 Dialysate HCO3 (mEq/L) 35 mEq/L -CJ at 12/24/20 1049 Prime Ordered (mL) 150 mL -CJ at 12/24/20 1049 Pre-Hemodialysis Comments iceboat -CJ at 12/24/20 1049 Hemodialysis Catheter Triple Lumen Non-tunneled Right Internal jugular Hemodialysis Properties Placement Date: 12/13/20 -, 12/13/201416 Placement Time: 1413 -PP, 12/13/201416 Inserted by: Dr Holly Allen -, 12/13/20 Lot Number: [id number]. 12 Fr x 20 cm -PP, 12/13/201416 Access Type: Non-t unneled -PP, 12/13/201416 Orientation: Right -, 12/13/201416 Access Loca tion: Internal jugular -PP, 12/13/201416 Technique: Modified Seldinger;Anatom ical landmarks;Ultrasound Used -PP, 12/13/201416 Vessel Assessment (Ultrasoun d Only): Compressible -PP, 12/13/201416 Tunneled or Non-tunneled: Non-Tunnele d -PP, 12/13/201416 Estimated Blood Loss: Minimal -PP, 12/13/201416 Site Assessment WDL -CJ at 12/24/20 1049 Catheter Packing Heparin -CJ at 12/24/20 104 Catheter Packing Interventions Unpacked;Flushed -CJ at 12/24/20 104 Arterial Port Packing Volume (mL) 1.2 mL -CJ at 12/24/20 1049 Venous Port Packing Volume (mL) 1.2 mL -CJ at 12/24/20 104 Lumen 1 Status Heparin locked;Disinfecting Cap -CJ at 12/24/20 104 Lumen 1 Patency Brisk blood return (3ml in 3 sec);Flushes without resistance - CJ at 12/24/20 104 Lumen 2 Status Heparin locked;Disinfecting Cap -CJ at 12/24/20 104 Lumen 2 Patency No blood return;Brisk blood return (3ml in 3 sec) -CJ at 12/24 1049 Hemodialysis Properties Placement Date: 12/13/20 -PP, 12/13/201416 Placement Time: 1413 -, 12/13/201416 Inserted by: Dr Holly Allen -, 12/13/20 Lot Number: [id number]. 12 Fr x 20 cm -PP, 12/13/201416 Orientation: Right -PP, 12/13/201416 Access Location: Internal jugular -PP, 12/13/201416 Allen hnique: Modified Seldinger;Anatomical landmarks;Ultrasound Used -PP, 12/13/20 1 417 Vessel Assessment (Ultrasound Only): Compressible -PP, 12/13/201416 Tunn eled or Non-tunneled: Non-Tunneled -PP, 12/13/201416 Estimated Blood Loss: Mi nimal -PP, 12/13/201416 Hemodialysis Machine Check HD Machine # [id number] -CJ at 12/24/20 104 HD Reverse Osmosis # 17 -CJ at 12/24/20 1049 Alarms Verified Yes -CJ at 12/24/201048 HD Dialyzer Lot # [id number] -CJ at 12/24/20 104 HD Tubing Lot # [id number] -CJ at 12/24/20 104 HD RO Machine Log Completed Yes -CJ at 12/24/20 1049 HD Initiation Checklist All Connections Secured;Venous Parameters Set;Saline Li ne Double Clamped;Arterial Parameters Set;Prime Given;Air Foam Detector Engaged -CJ at 12/24/20 104 User Chang (r) = Recorded By, (t) = Taken By, (c) = Cosigned By Initials Name PP MONTSE Yuan RN TREATMENT (last 8 hours) Hemodialysis Treatment - ThuDecember 24, 2020 Row Name 1430 1428 1415 1400 1345 During Hemodialysis Assessment Treatment Start Time 1056 -CJ at 12/24/20 1438 Treatment Stop Time 1428 -CJ at 12/24/20 1438 Blood Flow Rate (mL/min) 400 mL/min -CJ at 12/24/20 1417 400 mL/min - CJ at 12/24/20 1401 400 mL/min -CJ at 12/24/20 1346 Dialysate Flow Rate (mL/min) 600 -CJ at 12/24/20 1417 600 -CJ at 12/01 07/20 1401 600 -CJ at 12/24/20 1346 Arterial Pressure (mmHg) -150 mmHg -CJ at 12/24/20 1417 -150 mmHg -CJ at 12/24/20 1401 -150 mmHg -CJ at 12/24/20 1346 Venous Pressure (mmHg) 150 -CJ at 12/24/20 1417 150 -CJ at 12/24/20 1 401 150 -CJ at 12/24/20 1346 TMP (mmHg) 50 -CJ at 12/24/20 1417 50 -CJ at 12/24/20 1401 50 -CJ at 12/24/20 1346 Ultrafiltration Rate (mL/min) 360 mL/min -CJ at 12/24/20 1417 360 mL/m in -CJ at 12/24/20 1401 360 mL/min -CJ at 12/24/20 1346 UF Removed (mL) 1300 mL -CJ at 12/24/20 1438 1227 mL -CJ at 12/24/20 1417 1134 mL -CJ at 12/24/20 1401 1047 mL -CJ at 12/24/20 1346 Blood Pump Running Yes -CJ at 12/24/20 1417 Yes -CJ at 12/24/20 1401 Yes -CJ at 12/24/20 1346 Arteriovenous Lines Secure Yes -CJ at 12/24/20 1417 Yes -CJ at 1401 Yes -CJ at 12/24/20 1346 Transducer Check Yes -CJ at 12/24/20 1417 Yes -CJ at 12/24/20 1401 Ye s -CJ at 12/24/20 1346 HD Access Check Yes -CJ at 12/24/20 1417 Yes -CJ at 12/24/20 1401 Yes -CJ at 12/24/20 1346 Intra-Hemodialysis Comments post vitals -CJ at 12/24/20 1438 tx complete, bloo d returned, cvc packed with heparin -CJ at 12/24/20 1438 pt on phone, no acute changes -CJ at 12/24/20 1417 pt on phone, no acute changes -CJ at 12/24/20 140 1 pt on phone, no acute changes -CJ at 12/24/20 1346 Temp 36.9 C (98.4 F) -CJ at 12/24/20 1438 Temp src Oral -CJ at 12/24/20 1438 Pulse 89 -CJ at 12/24/20 1438 88 -CJ at 12/24/20 1438 85 -CJ at 12/24/20 141 7 84 -CJ at 12/24/20 1401 85 -CJ at 12/24/20 1346 Resp 16 -CJ at 12/24/20 1438 16 -CJ at 12/24/20 1438 16 -CJ at 12/24/20 1417 16 -CJ at 12/24/20 1401 15 -CJ at 12/24/20 1346 BP 146/95 -CJ at 12/24/20 1438 157/97 -CJ at 12/24/20 1438 159/89 -CJ at 1417 159/94 -CJ at 12/24/20 1401 151/87 -CJ at 12/24/20 1346 O2 Device None (Room air) -CJ at 12/24/20 1438 None (Room air) -CJ at 1 1438 None (Room air) -CJ at 10/25/21 1417 None (Room air) -CJ at 12/24/20 14 01 None (Room air) -CJ at 12/24/20 1346 Hemodialysis Catheter Triple Lumen Non-tunneled Right Internal jugular Hemodialysis Properties Placement Date: 12/13/20 -PP, 12/13/201416 Placement Time: 1414 -PP, 12/13/201416 Inserted by: Dr Holly Allen -PP, 12/13/20 Lot Number: [id number]. 12 Fr x 20 cm -PP, 12/13/201416 Access Type: Non-t unneled -PP, 12/13/201416 Orientation: Right -PP, 12/13/201416 Access Loca tion: Internal jugular -PP, 12/13/201416 Technique: Modified Ellen;Anatom ical landmarks;Ultrasound Used -PP, 12/13/201416 Vessel Assessment (Ultrasoun d Only): Compressible -PP, 12/13/201416 Tunneled or Non-tunneled: Non-Tunnele d -PP, 12/13/201416 Estimated Blood Loss: Minimal -PP, 12/13/201416 Hemodialysis Properties Placement Date: 12/13/20 -PP, 12/13/201416 Placement Time: 1413 -PP, 12/13/201416 Inserted by: Dr Holly Allen -, 12/13/20 Lot Number: [id number]. 12 Fr x 20 cm -PP, 12/13/201416 Orientation: Right -PP, 12/13/201416 Access Location: Internal jugular -PP, 12/13/201416 Allen hnique: Modified Selclaudio;Anatomical landmarks;Ultrasound Used -PP, 12/13/20 1 417 Vessel Assessment (Ultrasound Only): Compressible -PP, 12/13/201416 Tunn eled or Non-tunneled: Non-Tunneled -PP, 12/13/201416 Estimated Blood Loss: Mi nimal -PP, 12/13/201416 Row Name 1330 1315 1300 1230 1200 During Hemodialysis Assessment Blood Flow Rate (mL/min) 400 mL/min -CJ at 12/24/20 1335 400 mL/min -CJ at 1316 400 mL/min -CJ at 12/24/20 1303 400 mL/min -CJ at 12/24/20 1231 40 0 mL/min -CJ at 12/24/20 1209 Dialysate Flow Rate (mL/min) 600 -CJ at 12/24/20 1335 600 -CJ at 12/24/20 131 6 600 -CJ at 12/24/20 1303 600 -CJ at 12/24/20 1231 600 -CJ at 12/24/20 1209 Arterial Pressure (mmHg) -150 mmHg -CJ at 12/24/20 1335 -150 mmHg -CJ at 12/01 07/20 1316 -120 mmHg -CJ at 12/24/20 1303 -120 mmHg -CJ at 12/24/20 1231 -120 m mHg -CJ at 12/24/20 1209 Venous Pressure (mmHg) 150 -CJ at 12/24/20 1335 150 -CJ at 12/24/20 1316 120 -CJ at 12/24/20 1303 120 -CJ at 12/24/20 1231 120 -CJ at 12/24/20 1209 TMP (mmHg) 50 -CJ at 12/24/20 1335 50 -CJ at 12/24/20 1316 60 -CJ at 1 1303 60 -CJ at 12/24/20 1231 60 -CJ at 12/24/20 1209 Ultrafiltration Rate (mL/min) 360 mL/min -CJ at 12/24/20 1335 360 mL/min -CJ at 12/24/20 1316 360 mL/min -CJ at 12/24/20 1303 360 mL/min -CJ at 12/24/20 12 31 360 mL/min -CJ at 12/24/20 1230 UF Removed (mL) 984 mL -CJ at 12/24/20 1335 873 mL -CJ at 12/24/20 1316 792 m L -CJ at 12/24/20 1303 602 mL -CJ at 12/24/20 1231 469 mL -CJ at 12/24/20 120 9 Blood Pump Running Yes -CJ at 12/24/20 1335 Yes -CJ at 12/24/20 1316 Yes -CJ at 12/24/20 1303 Yes -CJ at 12/24/20 1231 Yes -CJ at 12/24/20 1209 Arteriovenous Lines Secure Yes -CJ at 12/24/20 1335 Yes -CJ at 12/24/20 1316 Yes -CJ at 12/24/20 1303 Yes -CJ at 12/24/20 1231 Yes -CJ at 12/24/20 1209 Transducer Check Yes -CJ at 12/24/20 1335 Yes -CJ at 12/24/20 1316 Yes -CJ a t 12/24/20 1303 Yes -CJ at 12/24/20 1231 Yes -CJ at 12/24/20 1209 HD Access Check Yes -CJ at 12/24/20 1335 Yes -CJ at 12/24/20 1316 Yes -CJ at 12/24/20 1303 Yes -CJ at 12/24/20 1231 Yes -CJ at 12/24/20 1209 Intra-Hemodialysis Comments pt on phone, no acute changes -CJ at 12/24/20 1335 pt on phone, no acute changes -CJ at 12/24/20 1316 pt on phone, no acute pastrana es -CJ at 12/24/20 1303 resting with eyes closed, RR even, no acute changes -C J at 12/24/20 1231 resting with eyes closed, RR even, no acute changes -CJ at 1 1230 Pulse 84 -CJ at 12/24/20 1335 84 -CJ at 12/24/20 1316 84 -CJ at 12/24/20 130 3 84 -CJ at 12/24/20 1231 84 -CJ at 12/24/20 1209 Resp 15 -CJ at 12/24/20 1335 16 -CJ at 12/24/20 1316 18 -CJ at 12/24/20 1303 16 -CJ at 12/24/20 1231 16 -CJ at 12/24/20 1209 BP 151/96 -CJ at 12/24/20 1335 157/99 -CJ at 12/24/20 1316 157/89 -CJ at 1303 155/91 -CJ at 12/24/20 1231 149/91 -CJ at 12/24/20 1209 O2 Device None (Room air) -CJ at 12/24/20 1335 None (Room air) -CJ at 1 1316 None (Room air) -CJ at 12/24/20 1303 None (Room air) -CJ at 12/24/20 12 31 None (Room air) -CJ at 12/24/20 1209 Hemodialysis Catheter Triple Lumen Non-tunneled Right Internal jugular Hemodialysis Properties Placement Date: 12/13/20 -PP, 12/13/201416 Placement Time: 1413 -PP, 12/13/201416 Inserted by: Dr Holly Allen -PP, 12/13/20 Lot Number: [id number]. 12 Fr x 20 cm -PP, 12/13/201416 Access Type: Non-t unneled -PP, 12/13/201416 Orientation: Right -PP, 12/13/201416 Access Loca tion: Internal jugular -PP, 12/13/201416 Technique: Modified Selclaudio;Anatom ical landmarks;Ultrasound Used -PP, 12/13/201416 Vessel Assessment (Ultrasoun d Only): Compressible -PP, 12/13/201416 Tunneled or Non-tunneled: Non-Tunnele d -PP, 12/13/201416 Estimated Blood Loss: Minimal -PP, 12/13/201416 Hemodialysis Properties Placement Date: 12/13/20 -PP, 12/13/201416 Placement Time: 1413 -PP, 12/13/201416 Inserted by: Dr Holly Allen -, 12/13/20 Lot Number: [id number]. 12 Fr x 20 cm -PP, 12/13/201416 Orientation: Right -PP, 12/13/201416 Access Location: Internal jugular -PP, 12/13/201416 Allen hnique: Modified Seldinger;Anatomical landmarks;Ultrasound Used -PP, 12/13/20 1 417 Vessel Assessment (Ultrasound Only): Compressible -PP, 12/13/201416 Tunn eled or Non-tunneled: Non-Tunneled -PP, 12/13/201416 Estimated Blood Loss: Mi nimal -PP, 12/13/201416 Row Name 1145 1130 1100 1056 1045 During Hemodialysis Assessment Treatment Start Time 1056 -CJ at 12/24/20 1101 Blood Flow Rate (mL/min) 400 mL/min -CJ at 12/24/20 1200 400 mL/min -CJ at 1141 400 mL/min -CJ at 12/24/20 1102 400 mL/min -CJ at 12/24/20 1101 Dialysate Flow Rate (mL/min) 600 -CJ at 12/24/20 1200 600 -CJ at 12/24/20 114 1 600 -CJ at 12/24/20 1102 600 -CJ at 12/24/20 1101 Arterial Pressure (mmHg) -120 mmHg -CJ at 12/24/20 1200 -120 mmHg -CJ at 12/01 07/20 1141 -120 mmHg -CJ at 12/24/20 1102 -120 mmHg -CJ at 12/24/20 1101 Venous Pressure (mmHg) 120 -CJ at 12/24/20 1200 120 -CJ at 12/24/20 1141 120 -CJ at 12/24/20 1102 120 -CJ at 12/24/20 1101 TMP (mmHg) 60 -CJ at 12/24/20 1200 60 -CJ at 12/24/20 1141 60 -CJ at 1 1102 60 -CJ at 12/24/20 1101 Ultrafiltration Rate (mL/min) 360 mL/min -CJ at 12/24/20 1231 360 mL/min -CJ at 12/24/20 1231 360 mL/min -CJ at 12/24/20 1231 360 mL/min -CJ at 12/24/20 12 31 UF Removed (mL) 418 mL -CJ at 12/24/20 1200 310 mL -CJ at 12/24/20 1141 56 mL -CJ at 12/24/20 1102 0 mL -CJ at 12/24/20 1101 Blood Pump Running Yes -CJ at 12/24/20 1200 Yes -CJ at 12/24/20 1141 Yes -CJ at 12/24/20 1102 Yes -CJ at 12/24/20 1101 Arteriovenous Lines Secure Yes -CJ at 12/24/20 1200 Yes -CJ at 12/24/20 1141 Yes -CJ at 12/24/20 1102 Yes -CJ at 12/24/20 1101 Transducer Check Yes -CJ at 12/24/20 1200 Yes -CJ at 12/24/20 1141 Yes -CJ a t 12/24/20 1102 Yes -CJ at 12/24/20 1101 HD Access Check Yes -CJ at 12/24/20 1200 Yes -CJ at 12/24/20 1141 Yes -CJ at 12/24/20 1102 Yes -CJ at 12/24/20 1101 Intra-Hemodialysis Comments pt on cell phone, no acute changes -CJ at 12/24/20 1200 pt on cell phone, no acute changes -CJ at 12/24/20 1141 pt on cell phone, no acute changes -CJ at 12/24/20 1102 tx initiated -CJ at 12/24/20 1101 pre t x vitals -CJ at 12/24/20 1049 Temp 36.6 C (97.9 F) -CJ at 12/24/20 1049 Temp src Oral -CJ at 12/24/20 1049 Pulse 84 -CJ at 12/24/20 1200 83 -CJ at 12/24/20 1141 88 -CJ at 12/24/20 110 2 84 -CJ at 12/24/20 1101 95 -CJ at 12/24/20 1049 Resp 16 -CJ at 12/24/20 1200 16 -CJ at 12/24/20 1141 18 -CJ at 12/24/20 1102 18 -CJ at 12/24/20 1101 18 -CJ at 12/24/20 1049 BP 149/91 -CJ at 12/24/20 1200 149/94 -CJ at 12/24/20 1141 157/93 -CJ at 1102 157/95 -CJ at 12/24/20 1101 157/89 -CJ at 12/24/20 1049 O2 Device None (Room air) -CJ at 12/24/20 1200 None (Room air) -CJ at 1 1141 None (Room air) -CJ at 12/24/20 1102 None (Room air) -CJ at 12/24/20 11 01 None (Room air) -CJ at 12/24/20 1049 Hemodialysis Catheter Triple Lumen Non-tunneled Right Internal jugular Hemodialysis Properties Placement Date: 12/13/20 -PP, 12/13/201416 Placement Time: 1413, 12/13/201416 Inserted by: Dr Holly Allen -PP, 12/13/20 141 7 Lot Number: [id number]. 12 Fr x 20 cm -PP, 12/13/201416 Access Type: Non-t unneled -PP, 12/13/201416 Orientation: Right -PP, 12/13/201416 Access Loca tion: Internal jugular -PP, 12/13/201416 Technique: Modified Seldinger;Anatom ical landmarks;Ultrasound Used -PP, 12/13/201416 Vessel Assessment (Ultrasoun d Only): Compressible -PP, 12/13/201416 Tunneled or Non-tunneled: Non-Tunnele d -PP, 12/13/201416 Estimated Blood Loss: Minimal -PP, 12/13/201416 Hemodialysis Properties Placement Date: 12/13/20 -PP, 12/13/201416 Placement Time: 1413 -PP, 12/13/201416 Inserted by: Dr Holly Allen -PP, 12/13/20 Lot Number: [id number]. 12 Fr x 20 cm -PP, 12/13/201416 Orientation: Right -PP, 12/13/201416 Access Location: Internal jugular -PP, 12/13/201416 Allen hnique: Modified Seldinger;Anatomical landmarks;Ultrasound Used -PP, 12/13/20 1 417 Vessel Assessment (Ultrasound Only): Compressible -PP, 12/13/201416 Tunn eled or Non-tunneled: Non-Tunneled -PP, 12/13/201416 Estimated Blood Loss: Mi nimal -PP, 12/13/201416 User Chang (r) = Recorded By, (t) = Taken By, (c) = Cosigned By Initials Name MONTSE Yuan RN POST-TREATMENT (last 8 hours) Hemodialysis Post-Treatment - ThuDecember 24, 2020 Row Name 1428 Post-Hemodialysis Assessment Rinseback Volume (mL) 150 mL -CJ at 12/24/20 1440 Total Liters Processed (L/min) 79.9 L/min -CJ at 12/24/20 1440 Dialyzer Clearance Lightly streaked -CJ at 12/24/20 144 Duration of Treatment (minutes) 210 minutes -CJ at 12/24/20 1440 Hemodialysis Intake (mL) 300 mL -CJ at 12/24/20 1440 Hemodialysis Output (mL) 1300 mL -CJ at 12/24/20 1440 Patient Response to Treatment tlerated well -CJ at 12/24/20 1440 Post-Hemodialysis Comments no issues, blood returned, cvc packed with heparin, report to primary, RN -VISHNU at 12/24/201439 Weight 82.7 kg (182 lb 5.1 oz) -CJ at 12/24/20 144 HD Post-Treatment Hand-off Report Completed Yes -CJ at 12/24/20 144 Post Treatment Reported To Neha Peña RN -CJ at 12/24/20 144 Hemodialysis Catheter Triple Lumen Non-tunneled Right Internal jugular Hemodialysis Properties Placement Date: 12/13/20 -PP, 12/13/201416 Placement Time: 1413 -PP, 12/13/201416 Inserted by: Dr Holly Allen -, 12/13/20 Lot Number: [id number]. 12 Fr x 20 cm -PP, 12/13/201416 Access Type: Non-t unneled -PP, 12/13/201416 Orientation: Right -, 12/13/201416 Access Loca tion: Internal jugular -, 12/13/201416 Technique: Modified Seldinger;Anatom ical landmarks;Ultrasound Used -PP, 12/13/201416 Vessel Assessment (Ultrasoun d Only): Compressible -PP, 12/13/201416 Tunneled or Non-tunneled: Non-Tunnele d -PP, 12/13/201416 Estimated Blood Loss: Minimal -PP, 12/13/201416 Site Assessment WDL -CJ at 12/24/201440 Catheter Packing Heparin -CJ at 12/24/201440 Catheter Packing Interventions Flushed;Packed -CJ at 12/24/201440 Arterial Port Packing Volume (mL) 1.2 mL -CJ at 12/24/201440 Venous Port Packing Volume (mL) 1.2 mL -CJ at 12/24/201440 Lumen 1 Status Heparin locked;Disinfecting Cap -CJ at 12/24/201440 Lumen 1 Patency Flushes without resistance -CJ at 12/24/201440 Lumen 2 Status Heparin locked;Disinfecting Cap -CJ at 12/24/201440 Lumen 2 Patency Flushes without resistance -CJ at 12/24/201440 Dressing Type Sterile;Transparent -CJ at 12/24/201440 Dressing Status Checked;Intact -CJ at 10/25/21 1441 Needleless Connector Change Date Due 12/29/20 -CJ at 12/24/20 1441 Hemodialysis Properties Placement Date: 12/13/20 -PP, 12/13/201416 Placement Time: 1413 -PP, 12/13/201416 Inserted by: Dr Holly Allen -PP, 12/13/20 141 7 Lot Number: [id number]. 12 Fr x 20 cm -PP, 12/13/201416 Orientation: Right -PP, 12/13/201416 Access Location: Internal jugular -PP, 12/13/201416 Allen hnique: Modified Seldinger;Anatomical landmarks;Ultrasound Used -PP, 12/13/20 1 417 Vessel Assessment (Ultrasound Only): Compressible -PP, 12/13/201416 Tunn eled or Non-tunneled: Non-Tunneled -PP, 12/13/201416 Estimated Blood Loss: Mi nimal -PP, 12/13/201416 User Chang (r) = Recorded By, (t) = Taken By, (c) = Cosigned By Initials Name Cynthia Ruiz, MONTSE Colby Jones RN HD ASSESSMENT (last 8 hours) Hemodialysis Assessment - ThuDecember 24, 2020 Row Name 1428 1040 Nursing Assessment Checks Hepatitis Status Verified Yes -CJ at 12/24/20 1442 Yes -CJ at 12/24/20 1100 [facility] Consent Verified Yes -CJ at 12/24/20 1442 Neurological Neuro (WDL) X -CJ at 12/24/20 1442 X -CJ at 12/24/20 1100 Level of Consciousness 0 -CJ at 12/24/20 1442 0 -CJ at 12/24/20 1100 Orientation Level Oriented to person;Oriented to place;Oriented to time;Oriente d to situation -CJ at 12/24/20 1442 Oriented to person;Oriented to place;Flour[place] ed to time;Oriented to situation -CJ at 12/24/20 1100 Speech Clear -CJ at 12/24/20 1442 Clear -CJ at 12/24/20 1100 Pupil Assessment Equal -CJ at 12/24/20 1442 Equal -CJ at 12/24/20 1100 HEENT HEENT (WDL) X -CJ at 12/24/20 1442 X -CJ at 12/24/20 1100 R Eye Impaired vision;Requires visual aid -CJ at 12/24/20 1442 Impaired vision ;Requires visual aid -CJ at 12/24/20 1100 L Eye Impaired vision;Requires visual aid -CJ at 12/24/20 1442 Impaired vision ;Requires visual aid -CJ at 12/24/20 1100 Teeth Missing teeth;Poor dental hygiene -CJ at 12/24/20 1442 Missing teeth;Poo r dental hygiene -CJ at 12/24/20 1100 Respiratory Respiratory (WDL) X -CJ at 12/24/20 1442 X -CJ at 12/24/20 1100 Head of Bed Elevation Self regulated -CJ at 12/24/20 1442 Self regulated -CJ at 12/24/20 1100 Respiratory Pattern Normal -CJ at 12/24/20 1442 Normal -CJ at 12/24/20 1100 Chest Assessment Chest expansion symmetrical -CJ at 12/24/20 1442 Chest expans ion symmetrical -CJ at 12/24/20 1100 Bilateral Breath Sounds Diminished -CJ at 12/24/20 1442 Diminished -CJ at 1100 R Breath Sounds Diminished -CJ at 12/24/20 1442 Diminished -CJ at 12/24/20 11 00 L Breath Sounds Diminished -CJ at 12/24/20 1442 Diminished -CJ at 12/24/20 11 00 Peripheral Vascular Peripheral Vascular (WDL) X -CJ at 12/24/20 1442 X -CJ at 12/24/20 1100 Capillary Refill Less than/equal to 3 seconds (All extremities) -CJ at 1442 Less than/equal to 3 seconds (All extremities) -CJ at 12/24/20 1100 Edema Right lower extremity;Left lower extremity -CJ at 12/24/20 1442 Right lo wer extremity;Left lower extremity -CJ at 12/24/20 1100 RLE Edema Trace -CJ at 12/24/20 1442 Trace -CJ at 12/24/20 1100 LLE Edema Trace -CJ at 12/24/20 1442 Trace -CJ at 12/24/20 1100 Cardiac Cardiac (WDL) WDL -CJ at 12/24/20 1442 WDL -CJ at 12/24/20 1100 Cardiac Regularity Regular -CJ at 12/24/20 1442 Regular -CJ at 12/24/20 1100 Heart Sounds S1, S2 -CJ at 12/24/20 1442 S1, S2 -CJ at 12/24/20 1100 Jugular Venous Distention (JVD) No -CJ at 12/24/20 1442 No -CJ at 12/24/20 11 00 Skin Assessment Integumentary (WDL) X -CJ at 12/24/20 1442 X -CJ at 12/24/20 1100 Generalized Skin Color Pale -CJ at 12/24/20 1442 Pale -CJ at 12/24/20 1100 Generalized Skin Moisture Dryness -CJ at 12/24/20 1442 Dryness -CJ at 1 1100 Gastrointestinal Gastrointestinal (WDL) X -CJ at 12/24/20 1442 X -CJ at 12/24/20 1100 Abdomen Inspection Soft;Rounded -CJ at 12/24/20 1442 Soft;Rounded -CJ at 12/01 07/20 1100 Bowel Sounds (All Quadrants) Audible -CJ at 12/24/20 1442 Audible -CJ at 12/01 07/20 1100 Pain Assessment Patient's Stated Pain Goal 0 -CJ at 12/24/20 1442 0 -CJ at 12/24/20 1100 Pain Assessment No/denies pain -CJ at 12/24/20 1442 No/denies pain -CJ at 1100 User Chang (r) = Recorded By, (t) = Taken By, (c) = Cosigned By Initials Name CJ Colby Jones RN * Rebecca Kamara RN - 12/22/2020 4:48 PM CDT Dialysis Treatment Time Medications Dose Volume Route Initials 1340 CVC - Pack with Heparin 2400 [address] RN Education Able to Educate Patient Yes Patient Procedural Explain Verbalizes Understanding Patient Information Patient Name Sommer Callahan Legal Sex Male Patient tolerated treatment: tolerated tx well. CVC dressing changed, CVC site s hows no s/s of infection. Patient c/o of itching at site. Arterial clotting off last 10 mins of tx completd Treatment Time: 160 mins UF Removal: 0.8kgs Estimated Dry Weight: tbd Pre Weight: 88.5kgs Pre Weight Source: bed Post Weight: 87.3kgs Post Weight Source: bed Hepatitis Verified by: CT RN Treatment Start Time:1105 Treatment End Time:1337 Most Recent Result within the last 7 days Lab Units 12/22/20 0411 SODIUM MEQ/L 136 POTASSIUM MEQ/L 3.2* CHLORIDE MEQ/L 105 CALCIUM mg/dL 8.2* BLOOD UREA NITROGEN mg/dL 29* Dialysis Orders (36h ago, onward) Start Ordered 12/22/20 0953 Hemodialysis inpatient Once Question Answer Comment K+ 4 mEq / liter Ca++ 2.5 mg Bicarb 35 mEq / liter Na+ 140 mEq / liter Na+ Modeling: No Dialyzer F180 Dialysate Temperature (C) 37 BFR-As tolerated to a maximum of: Best Flow DFR 600 mL/min Duration of Treatment 3 Hours Dry weight (kg) or fluid removal (L) remove 1 liter Access Site Central Line 12/22/20 0953 PRE/POST HEMODIALYSIS VITALS (last 8 hours) Vitals - Sat December 22, 2020 Row Name 1500 1337 1330 1315 1300 Vital Signs Temp 37.4 C (99.3 F) -LB at 12/22/20 1501 37.1 C (98.8 F) -CT at 12/22/20 1554 Temp src Oral -LB at 12/22/20 1501 Oral -CT at 12/22/20 1554 Pulse 90 -LB at 12/22/20 1501 88 -CT at 12/22/20 1554 88 -CT at 12/22/20 1335 90 -CT at 12/22/20 1326 90 -CT at 12/22/20 1314 SpO2 96 % -LB at 12/22/20 1501 Resp 19 -LB at 12/22/20 1501 24 -CT at 12/22/20 1554 20 -CT at 12/22/20 1554 20 -CT at 12/22/20 1326 22 -CT at 12/22/20 1314 BP (!) 148/86 -LB at 12/22/20 1501 (!) 152/78 -CT at 12/22/20 1554 (!) 167/91 -CT at 12/22/20 1335 (!) 169/98 -CT at 12/22/20 1326 (!) 166/100 -CT at 12/22/20 1314 BP Location Right arm -LB at 12/22/20 1501 Patient position Supine -LB at 12/22/20 1501 Weight 87.3 kg (192 lb 7.4 oz) -CT at 12/22/20 1557 Row Name 1245 1230 1215 1200 1145 Vital Signs Pulse 90 -CT at 12/22/20 1250 89 -CT at 12/22/20 1236 88 -CT at 12/22/20 1222 88 -CT at 12/22/20 1210 88 -CT at 12/22/20 1154 SpO2 (!) 89 % -CT at 12/22/20 1236 (!) 88 % -CT at 12/22/20 1222 90 % -CT at 12/22/20 1210 (!) 88 % -CT at 12/22/20 1154 Resp 22 -CT at 12/22/20 1250 22 -CT at 12/22/20 1236 21 -CT at 12/22/20 1222 22 -CT at 12/22/20 1210 24 -CT at 12/22/20 1154 BP (!) 171/102 -CT at 12/22/20 1250 (!) 157/101 -CT at 12/22/20 1236 (!) 168/99 -CT at 12/22/20 1222 (!) 173/102 -CT at 12/22/20 1210 (!) 171/101 -CT at 12/22/20 1154 Row Name 1130 1115 1105 1100 1046 Vital Signs Temp 37 C (98.6 F) -CT at 12/22/20 1122 36.9 C (98.4 F) -LB at 12/22/20 1051 Temp src Oral -CT at 12/22/20 1122 Oral -LB at 12/22/20 1051 Pulse 89 -CT at 12/22/20 1134 86 -CT at 12/22/20 1124 80 -CT at 12/22/20 1122 88 -LB at 12/22/20 1051 SpO2 (!) 85 % -CT at 12/22/20 1134 95 % -CT at 12/22/20 1124 95 % -CT at 12/22/20 1122 95 % -LB at 12/22/20 1051 Resp 20 -CT at 12/22/20 1134 18 -CT at 12/22/20 1124 20 -CT at 12/22/20 1122 18 -LB at 12/22/20 1051 BP (!) 165/100 -CT at 12/22/20 1134 (!) 166/97 -CT at 12/22/20 1124 (!) 158/93 -CT at 12/22/20 1122 (!) 156/90 -LB at 12/22/20 1051 BP Location Right arm -LB at 12/22/20 1051 Patient position Supine -LB at 12/22/20 1051 Weight 88.5 kg (195 lb 1.7 oz) -CT at 12/22/20 1113 User Chang (r) = Recorded By, (t) = Taken By, (c) = Cosigned By Initials Name CT Rebecca Kamara RN [facility] Kwna Flores CNA PRE-TREATMENT (last 8 hours) Hemodialysis Pre-Treatment - Sat December 22, 2020 Row Name 1100 Pre-Hemodialysis Assessment Patient Status Arrived -CT at 12/22/20 111 HD Pre-Treatment Hand-off Review of SBAR Completed Yes -CT at 12/22/20 111 HD Pre-Treatment Report from Floor Nurse (name) Betsy Lucio RN -CT at 12/22/20 1237 HBsAg Results Negative -CT at 12/22/201112 HBsAg Date Last Tested 11/26/20 -CT at 12/22/20 111 HBsAb Results Susceptible (<10) -CT at 12/22/201112 HBsAb Date Last Tested 11/26/20 -CT at 12/22/20 111 Treatment Status Pending Start -CT at 12/22/20 111 Weight 88.5 kg (195 lb 1.7 oz) -CT at 12/22/20 111 Weight Source Bed -CT at 12/22/20 111 Correct Order/Script Yes -CT at 12/22/201112 Correct Patient? Yes -CT at 12/22/20 111 Correct Site/Side? Yes -CT at 12/22/20 111 What Procedure? HD -CT at 12/22/20 111 [facility] Consent Verified Yes -CT at 12/22/20 111 pH 7.4 -CT at 12/22/201112 Gross Bleach Negative Yes -CT at 12/22/201112 Gross Bleach Check Time 0900 -CT at 12/22/20 111 Chlorine Negative Yes -CT at 12/22/201112 Chlorine Check Time 0900 -CT at 12/22/20 111 Machine Temperature 37.9 C (100.2 F) -CT at 12/22/201112 Dialyzer F-180 -CT at 12/22/201112 Meter Conductivity 14.2 -CT at 12/22/201112 HD Machine Conductivity 13.8 -CT at 12/22/201112 Sodium Modeling NA -CT at 12/22/20 111 Dialysate Na (mEq/L) 140 mEq/L -CT at 12/22/201112 Dialysate K (mEq/L) 4 mEq/L -CT at 12/22/201112 Dialysate CA (mEq/L) 2.5 mEq/L -CT at 12/22/201112 Dialysate HCO3 (mEq/L) 35 mEq/L -CT at 12/22/201112 Prime Ordered (mL) 150 mL -CT at 12/22/201112 Pre-Hemodialysis Comments iceboat -CT at 12/22/201112 Hemodialysis Catheter Triple Lumen Non-tunneled Right Internal jugular Hemodialysis Properties Placement Date: 12/13/20 -, 12/13/201416 Placement Time: 1413 -, 12/13/201416 Inserted by: Dr Holly Allen -, 12/13/20 Lot Number: [id number]. 12 Fr x 20 cm -, 12/13/201416 Access Type: Non-t unneled -, 12/13/201416 Orientation: Right -, 12/13/201416 Access Loca tion: Internal jugular -PP, 12/13/201416 Technique: Modified Seldinger;Anatom ical landmarks;Ultrasound Used -PP, 12/13/201416 Vessel Assessment (Ultrasoun d Only): Compressible -PP, 12/13/201416 Tunneled or Non-tunneled: Non-Tunnele d -PP, 12/13/201416 Estimated Blood Loss: Minimal -, 12/13/201416 Site Assessment Dressing in Place -CT at 12/22/201112 Catheter Packing Heparin -CT at 12/22/201112 Catheter Packing Interventions Unpacked;Flushed -CT at 12/22/201112 Arterial Port Packing Volume (mL) 1.2 mL -CT at 12/22/201112 Venous Port Packing Volume (mL) 1.2 mL -CT at 12/22/201112 Lumen 1 Patency Brisk blood return (3ml in 3 sec) -CT at 12/22/201112 Lumen 2 Patency Brisk blood return (3ml in 3 sec) -CT at 12/22/201112 Dressing Type Antimicrobial;Transparent -CT at 12/22/201112 Dressing Status Checked;Intact -CT at 12/22/201112 Next Dressing Change Due 12/22/20 -CT at 12/22/201112 Hemodialysis Properties Placement Date: 12/13/20 -, 12/13/201416 Placement Time: 1413 -, 12/13/201416 Inserted by: Dr Holly Allen -PP, 12/13/20 Lot Number: [id number]. 12 Fr x 20 cm -PP, 12/13/201416 Orientation: Right -PP, 12/13/201416 Access Location: Internal jugular -, 12/13/201416 Allen hnique: Modified Seldinger;Anatomical landmarks;Ultrasound Used -, 12/13/20 1 417 Vessel Assessment (Ultrasound Only): Compressible -PP, 12/13/201416 Tunn eled or Non-tunneled: Non-Tunneled -PP, 12/13/201416 Estimated Blood Loss: Mi nimal -PP, 12/13/201416 Hemodialysis Machine Check HD Machine # [id number] -CT at 12/22/201112 HD Reverse Osmosis # 117 -CT at 12/22/201112 Alarms Verified Yes -CT at 12/22/201112 HD Dialyzer Lot # [id number] -CT at 12/22/201112 HD Tubing Lot # [id number] -CT at 12/22/201112 HD RO Machine Log Completed Yes -CT at 12/22/201112 HD Initiation Checklist All Connections Secured;Venous Parameters Set;Saline L ine Double Clamped;Arterial Parameters Set;Prime Given;Air Foam Detector Engaged -CT at 12/22/201112 User Chang (r) = Recorded By, (t) = Taken By, (c) = Cosigned By Initials Name PP Cynthia Ruiz, RN CT Rebecca Kamara RN TREATMENT (last 8 hours) Hemodialysis Treatment - Sat December 22, 2020 Row Name 1337 1330 1315 1300 1245 During Hemodialysis Assessment Treatment Start Time 1105 -CT at 12/22/20 1554 Treatment Stop Time 1337 -CT at 12/22/20 1554 Blood Flow Rate (mL/min) 300 mL/min -CT at 12/22/20 1554 300 mL/min -CT at 12/22/20 1335 300 mL/min -CT at 12/22/20 1326 300 mL/min -CT at 12/22/20 1314 300 mL/min -CT at 12/22/20 1250 Dialysate Flow Rate (mL/min) 500 -CT at 12/22/20 1554 500 -CT at 12/22/20 1335 500 -CT at 12/22/20 1326 500 -CT at 12/22/20 1314 500 -CT at 12/22/20 1250 Arterial Pressure (mmHg) -110 mmHg -CT at 12/22/20 1554 -110 mmHg -CT at 12/22/20 1335 -110 mmHg -CT at 12/22/20 1326 -110 mmHg -CT at 12/22/20 1314 -100 mmHg -CT at 12/22/20 1250 Venous Pressure (mmHg) 100 -CT at 12/22/20 1554 100 -CT at 12/22/20 1335 180 -CT at 12/22/20 1326 100 -CT at 12/22/20 1314 80 -CT at 12/22/20 1250 TMP (mmHg) 80 -CT at 12/22/20 1554 80 -CT at 12/22/20 1335 80 -CT at 12/22/20 1326 80 -CT at 12/22/20 1314 80 -CT at 12/22/20 1250 Ultrafiltration Rate (mL/min) 430 mL/min -CT at 12/22/20 1554 430 mL/min -CT at 12/22/20 1335 430 mL/min -CT at 12/22/20 1326 430 mL/min -CT at 12/22/20 1314 440 mL/min -CT at 12/22/20 1250 UF Removed (mL) 1114 mL -CT at 12/22/20 1554 1074 mL -CT at 12/22/20 1335 1010 mL -CT at 12/22/20 1326 944 mL -CT at 12/22/20 1314 763 mL -CT at 12/22/20 1250 Blood Pump Running Yes -CT at 12/22/20 1554 Yes -CT at 12/22/20 1335 Yes -CT at 12/22/20 1326 Yes -CT at 12/22/20 1314 Yes -CT at 12/22/20 1250 Arteriovenous Lines Secure Yes -CT at 12/22/20 1554 Yes -CT at 12/22/20 1335 Yes -CT at 12/22/20 1326 Yes -CT at 12/22/20 1314 Yes -CT at 12/22/20 1250 Transducer Check Yes -CT at 12/22/20 1554 Yes -CT at 12/22/20 1335 Yes -CT at 12/22/20 1326 Yes -CT at 12/22/20 1314 Yes -CT at 12/22/20 1250 HD Access Check Yes -CT at 12/22/20 1554 Yes -CT at 12/22/20 1335 Yes -CT at 12/22/20 1326 Yes -CT at 12/22/20 1314 Yes -CT at 12/22/20 1250 Intra-Hemodialysis Comments tx completed, arterial clotting off -CT at 12/22/20 1554 no acute changes -CT at 12/22/20 1335 resting -CT at 12/22/20 1326 playing games on phone -CT at 12/22/20 1314 primary rn aware of BP -CT at 12/22/20 1250 Temp 37.1 C (98.8 F) -CT at 12/22/20 1554 Temp src Oral -CT at 12/22/20 1554 Pulse 88 -CT at 12/22/20 1554 88 -CT at 12/22/20 1335 90 -CT at 12/22/20 1326 90 -CT at 12/22/20 1314 90 -CT at 12/22/20 1250 Resp 24 -CT at 12/22/20 1554 20 -CT at 12/22/20 1554 20 -CT at 12/22/20 1326 22 -CT at 12/22/20 1314 22 -CT at 12/22/20 1250 BP (!) 152/78 -CT at 12/22/20 1554 (!) 167/91 -CT at 12/22/20 1335 (!) 169/98 -CT at 12/22/20 1326 (!) 166/100 -CT at 12/22/20 1314 (!) 171/102 -CT at 12/22/20 1250 O2 Device None (Room air) -CT at 12/22/20 1554 None (Room air) -CT at 12/22/20 1335 None (Room air) -CT at 12/22/20 1326 None (Room air) -CT at 12/22/20 1314 None (Room air) -CT at 12/22/20 1250 Pain Assessment Patient's Stated Pain Goal 0 -CT at 12/22/20 155 Hemodialysis Catheter Triple Lumen Non-tunneled Right Internal jugular Hemodialysis Properties Placement Date: 12/13/20 -, 12/13/201416 Placement Time: 1413 -, 12/13/201416 Inserted by: Dr Holly Allen -, 12/13/20 Lot Number: [id number]. 12 Fr x 20 cm -, 12/13/201416 Access Type: Non-t unneled -, 12/13/201416 Orientation: Right -, 12/13/201416 Access Loca tion: Internal jugular -, 12/13/201416 Technique: Modified Seldinger;Anatom ical landmarks;Ultrasound Used -, 12/13/201416 Vessel Assessment (Ultrasoun d Only): Compressible -, 12/13/201416 Tunneled or Non-tunneled: Non-Tunnele d -PP, 12/13/201416 Estimated Blood Loss: Minimal -, 12/13/201416 Site Assessment Dressing in Place -CT at 12/22/201553 Catheter Packing Heparin -CT at 12/22/201553 Catheter Packing Interventions Flushed;Packed -CT at 12/22/201553 Arterial Port Packing Volume (mL) 1.2 mL -CT at 12/22/201553 Venous Port Packing Volume (mL) 1.2 mL -CT at 12/22/20 155 Lumen 1 Status Disinfecting Cap;Heparin locked -CT at 12/22/20 1554 Lumen 2 Status Disinfecting Cap;Heparin locked -CT at 12/22/20 1554 Dressing Type Antimicrobial;Transparent -CT at 12/22/20 1554 Next Dressing Change Due 12/29/20 -CT at 12/22/20 1554 Hemodialysis Properties Placement Date: 12/13/20 -PP, 12/13/201416 Placement Time: 1413 -PP, 12/13/201416 Inserted by: Dr Holly Allen -PP, 12/13/20 141 7 Lot Number: [id number]. 12 Fr x 20 cm -PP, 12/13/201416 Orientation: Right -PP, 12/13/201416 Access Location: Internal jugular -PP, 12/13/201416 Allen hnique: Modified Seldinger;Anatomical landmarks;Ultrasound Used -PP, 12/13/20 1 417 Vessel Assessment (Ultrasound Only): Compressible -PP, 12/13/201416 Tunn eled or Non-tunneled: Non-Tunneled -PP, 12/13/201416 Estimated Blood Loss: Mi nimal -PP, 12/13/201416 Row Name 1230 1215 1200 1145 1130 During Hemodialysis Assessment Blood Flow Rate (mL/min) 300 mL/min -CT at 12/22/20 1236 300 mL/min -CT at 12/22/20 1222 300 mL/min -CT at 12/22/20 1210 300 mL/min -CT at 12/22/20 1154 300 mL/min -CT at 12/22/20 1134 Dialysate Flow Rate (mL/min) 500 -CT at 12/22/20 1236 500 -CT at 12/22/20 1222 500 -CT at 12/22/20 1210 500 -CT at 12/22/20 1154 500 -CT at 12/22/20 1134 Arterial Pressure (mmHg) -120 mmHg -CT at 12/22/20 1236 -120 mmHg -CT at 12/22/20 1222 -120 mmHg -CT at 12/22/20 1210 -110 mmHg -CT at 12/22/20 1154 -100 mmHg -CT at 12/22/20 1134 Venous Pressure (mmHg) 90 -CT at 12/22/20 1236 90 -CT at 12/22/20 1222 80 -CT at 12/22/20 1210 90 -CT at 12/22/20 1154 80 -CT at 12/22/20 1134 TMP (mmHg) 80 -CT at 12/22/20 1236 80 -CT at 12/22/20 1222 80 -CT at 12/22/20 1210 80 -CT at 12/22/20 1154 80 -CT at 12/22/20 1134 Ultrafiltration Rate (mL/min) 440 mL/min -CT at 12/22/20 1236 440 mL/min -CT at 12/22/20 1222 440 mL/min -CT at 12/22/20 1210 430 mL/min -CT at 12/22/20 1154 430 mL/min -CT at 12/22/20 1134 UF Removed (mL) 665 mL -CT at 12/22/20 1236 562 mL -CT at 12/22/20 1222 463 mL -CT at 12/22/20 1210 211 mL -CT at 12/22/20 1154 204 mL -CT at 12/22/20 1134 Blood Pump Running Yes -CT at 12/22/20 1236 Yes -CT at 12/22/20 1222 Yes -CT at 12/22/20 1210 Yes -CT at 12/22/20 1154 Yes -CT at 12/22/20 1134 Arteriovenous Lines Secure Yes -CT at 12/22/20 1236 Yes -CT at 12/22/20 1222 Yes -CT at 12/22/20 1210 Yes -CT at 12/22/20 1154 Yes -CT at 12/22/20 1134 Transducer Check Yes -CT at 12/22/20 1236 Yes -CT at 12/22/20 1222 Yes -CT at 12/22/20 1210 Yes -CT at 12/22/20 1154 Yes -CT at 12/22/20 1134 HD Access Check Yes -CT at 12/22/20 1236 Yes -CT at 12/22/20 1222 Yes -CT at 12/22/20 1210 Yes -CT at 12/22/20 1154 Yes -CT at 12/22/20 1134 Intra-Hemodialysis Comments denies any SOA -CT at 12/22/20 1236 readjusted cuff -CT at 12/22/20 1222 no c/o -CT at 12/22/20 1210 BS 156 -CT at 12/22/20 1154 physician at bs -CT at 12/22/20 1134 Pulse 89 -CT at 12/22/20 1236 88 -CT at 12/22/20 1222 88 -CT at 12/22/20 1210 88 -CT at 12/22/20 1154 89 -CT at 12/22/20 1134 Resp 22 -CT at 12/22/20 1236 21 -CT at 12/22/20 1222 22 -CT at 12/22/20 1210 24 -CT at 12/22/20 1154 20 -CT at 12/22/20 1134 BP (!) 157/101 -CT at 12/22/20 1236 (!) 168/99 -CT at 12/22/20 1222 (!) 173/102 -CT at 12/22/20 1210 (!) 171/101 -CT at 12/22/20 1154 (!) 165/100 -CT at 12/22/20 1134 SpO2 (!) 89 % -CT at 12/22/20 1236 (!) 88 % -CT at 12/22/20 1222 90 % -CT at 12/22/20 1210 (!) 88 % -CT at 12/22/20 1154 (!) 85 % -CT at 12/22/20 1134 O2 Device None (Room air) -CT at 12/22/20 1236 None (Room air) -CT at 12/22/20 1222 None (Room air) -CT at 12/22/20 1210 None (Room air) -CT at 12/22/20 1154 None (Room air) -CT at 12/22/20 1134 Hemodialysis Catheter Triple Lumen Non-tunneled Right Internal jugular Hemodialysis Properties Placement Date: 12/13/20 -PP, 12/13/201416 Placement Time: 1413 -PP, 12/13/201416 Inserted by: Dr Holly Allen -PP, 12/13/20 141 Lot Number: [id number]. 12 Fr x 20 cm -PP, 12/13/201416 Access Type: Non-t unneled -PP, 10/14/21 1417 Orientation: Right -PP, 12/13/201416 Access Loca tion: Internal jugular -PP, 12/13/201416 Technique: Modified Seldinger;Anatom ical landmarks;Ultrasound Used -PP, 12/13/201416 Vessel Assessment (Ultrasoun d Only): Compressible -PP, 12/13/201416 Tunneled or Non-tunneled: Non-Tunnele d -PP, 12/13/201416 Estimated Blood Loss: Minimal -PP, 12/13/201416 Dressing Type Antimicrobial;Transparent -CT at 12/22/20 123 Dressing Status Dressing changed -CT at 12/22/20 123 Dressing Intervention New -CT at 12/22/20 123 Next Dressing Change Due 12/29/20 -CT at 12/22/20 123 Hemodialysis Properties Placement Date: 12/13/20 -PP, 12/13/201416 Placement Time: 1413 -PP, 12/13/201416 Inserted by: Dr Holly Allen -PP, 12/13/20 Lot Number: [id number]. 12 Fr x 20 cm -PP, 12/13/201416 Orientation: Right -PP, 12/13/201416 Access Location: Internal jugular -PP, 12/13/201416 Allen hnique: Modified Seldinger;Anatomical landmarks;Ultrasound Used -PP, 12/13/20 1 417 Vessel Assessment (Ultrasound Only): Compressible -PP, 12/13/201416 Tunn eled or Non-tunneled: Non-Tunneled -PP, 12/13/201416 Estimated Blood Loss: Mi nimal -PP, 12/13/201416 Row Name 1115 1105 1100 1046 During Hemodialysis Assessment Treatment Start Time 1105 -CT at 12/22/20 1122 Blood Flow Rate (mL/min) 300 mL/min -CT at 12/22/20 1124 300 mL/min -CT at 12/22/20 1122 Dialysate Flow Rate (mL/min) 500 -CT at 12/22/20 1124 500 -CT at 12/22/20 1122 Arterial Pressure (mmHg) -110 mmHg -CT at 12/22/20 1124 -150 mmHg -CT at 12/22/20 1122 Venous Pressure (mmHg) 80 -CT at 12/22/20 1124 80 -CT at 12/22/20 1122 TMP (mmHg) 80 -CT at 12/22/20 1124 80 -CT at 12/22/20 1122 Ultrafiltration Rate (mL/min) 430 mL/min -CT at 12/22/20 1124 430 mL/min -CT at 12/22/20 1122 UF Removed (mL) 142 mL -CT at 12/22/20 1124 0 mL -CT at 12/22/20 1122 Blood Pump Running Yes -CT at 12/22/20 1124 Yes -CT at 12/22/20 1122 Arteriovenous Lines Secure Yes -CT at 12/22/20 1124 Yes -CT at 12/22/20 1122 Transducer Check Yes -CT at 12/22/20 1124 Yes -CT at 12/22/20 1122 HD Access Check Yes -CT at 12/22/20 1124 Yes -CT at 12/22/20 1122 Intra-Hemodialysis Comments napping denies any c/o -CT at 12/22/20 1124 tx started -CT at 12/22/20 1122 pre vital signs -CT at 12/22/20 1124 Temp 37 C (98.6 F) -CT at 12/22/20 1122 Temp src Oral -CT at 12/22/20 1122 Pulse 86 -CT at 12/22/20 1124 80 -CT at 12/22/20 1122 Resp 18 -CT at 12/22/20 1124 20 -CT at 12/22/20 1122 BP (!) 166/97 -CT at 12/22/20 1124 (!) 158/93 -CT at 12/22/20 1122 SpO2 95 % -CT at 12/22/20 1124 95 % -CT at 12/22/20 1122 O2 Device None (Room air) -CT at 12/22/20 1124 None (Room air) -CT at 12/22/20 1122 Pain Assessment Pain Assessment Scale 0-10 -CT at 12/22/20 1129 Pain Score 2 -CT at 12/22/20 1129 Pain Type Chronic pain -CT at 12/22/20 1129 Hemodialysis Catheter Triple Lumen Non-tunneled Right Internal jugular Hemodialysis Properties Placement Date: 12/13/20 -PP, 12/13/20 141 Placement Time: 1414 -PP, 12/13/201416 Inserted by: Dr Holly Allen -PP, 12/13/20 Lot Number: [id number]. 12 Fr x 20 cm -PP, 12/13/201416 Access Type: Non-t unneled -PP, 12/13/201416 Orientation: Right -PP, 12/13/201416 Access Loca tion: Internal jugular -PP, 12/13/201416 Technique: Modified Selhalleyer;Anatom ical landmarks;Ultrasound Used -PP, 12/13/201416 Vessel Assessment (Ultrasoun d Only): Compressible -PP, 12/13/201416 Tunneled or Non-tunneled: Non-Tunnele d -PP, 12/13/201416 Estimated Blood Loss: Minimal -PP, 12/13/201416 Hemodialysis Properties Placement Date: 12/13/20 -PP, 12/13/201416 Placement Time: 1413 -PP, 12/13/201416 Inserted by: Dr Holly Allen -PP, 12/13/20 Lot Number: [id number]. 12 Fr x 20 cm -PP, 12/13/201416 Orientation: Right -PP, 12/13/201416 Access Location: Internal jugular -PP, 12/13/201416 Allen hnique: Modified Seldinger;Anatomical landmarks;Ultrasound Used -PP, 12/13/20 1 417 Vessel Assessment (Ultrasound Only): Compressible -PP, 12/13/201416 Tunn eled or Non-tunneled: Non-Tunneled -PP, 12/13/201416 Estimated Blood Loss: Mi nimal -PP, 12/13/201416 User Chang (r) = Recorded By, (t) = Taken By, (c) = Cosigned By Initials Name PP Cynthia Ruiz, MONT[facility] CT Rebecca Kamara RN POST-TREATMENT (last 8 hours) Hemodialysis Post-Treatment - Sat December 22, 2020 Row Name 1337 Post-Hemodialysis Assessment Rinseback Volume (mL) 150 mL -CT at 12/22/20 1557 Total Liters Processed (L/min) 45.7 L/min -CT at 12/22/20 1557 Dialyzer Clearance Lightly streaked -CT at 12/22/20 1557 Duration of Treatment (minutes) 160 minutes -CT at 12/22/201556 Hemodialysis Intake (mL) 300 mL -CT at 12/22/201556 Hemodialysis Output (mL) 1114 mL -CT at 12/22/201556 Patient Response to Treatment pt tolerated without problems, CVL is positional -CT at 12/22/201556 Post-Hemodialysis Comments blood returned, cvc packed with heparin -CT at 12/22/201556 Weight 87.3 kg (192 lb 7.4 oz) -CT at 12/22/201556 HD Post-Treatment Hand-off Report Completed Yes -CT at 12/22/201556 Post Treatment Reported To Betsy Lucio RN -CT at 12/22/201556 Hemodialysis Catheter Triple Lumen Non-tunneled Right Internal jugular Hemodialysis Properties Placement Date: 12/13/20 -PP, 12/13/201416 Placement Time: 1413 -PP, 12/13/201416 Inserted by: Dr Holly Allen -, 12/13/20 Lot Number: [id number]. 12 Fr x 20 cm -PP, 12/13/201416 Access Type: Non-t unneled -PP, 12/13/201416 Orientation: Right -, 12/13/201416 Access Loca tion: Internal jugular -PP, 12/13/201416 Technique: Modified Ellen;Anatom ical landmarks;Ultrasound Used -, 12/13/201416 Vessel Assessment (Ultrasoun d Only): Compressible -PP, 12/13/201416 Tunneled or Non-tunneled: Non-Tunnele d -PP, 12/13/201416 Estimated Blood Loss: Minimal -PP, 12/13/201416 Hemodialysis Properties Placement Date: 12/13/20 -PP, 12/13/201416 Placement Time: 1413 -PP, 12/13/201416 Inserted by: Dr Holly Allen -, 12/13/20 Lot Number: [id number]. 12 Fr x 20 cm -PP, 12/13/201416 Orientation: Right -, 12/13/201416 Access Location: Internal jugular -PP, 12/13/201416 Allen hnique: Modified Seldinger;Anatomical landmarks;Ultrasound Used -, 12/13/20 1 417 Vessel Assessment (Ultrasound Only): Compressible -PP, 12/13/20 1417 Tunn eled or Non-tunneled: Non-Tunneled -PP, 12/13/20 141 Estimated Blood Loss: Mi nimal -PP, 12/13/20 141 User Chang (r) = Recorded By, (t) = Taken By, (c) = Cosigned By Initials Name PP Cynthia Ruiz, RN CT Rebecca Kamara RN HD ASSESSMENT (last 8 hours) Hemodialysis Assessment - Sat December 22, 2020 Row Name 9989 2360 Nursing Assessment Checks Hepatitis Status Verified Yes -CT at 12/22/20 1118 Neurological Neuro (WDL) WDL -CT at 12/22/20 1556 WDL -CT at 12/22/20 1118 Level of Consciousness 0 -CT at 12/22/20 1556 0 -CT at 12/22/20 1118 Orientation Level Oriented to person;Oriented to place;Oriented to time;Flournoy ed to situation -CT at 12/22/20 1556 Oriented to person;Oriented to place;Oriented to time;Jaspal ented to situation -CT at 12/22/20 1118 Cognition No deficit noted -CT at 12/22/20 1556 No deficit noted -CT at 12/22/20 1118 Speech Clear -CT at 12/22/20 1556 Clear -CT at 12/22/20 1118 HEENT HEENT (WDL) X -CT at 12/22/20 1556 X -CT at 12/22/20 1118 R Eye Impaired vision;Requires visual aid -CT at 12/22/20 1556 Impaired vision;Requires visual aid -CT at 12/22/20 1118 L Eye Impaired vision;Requires visual aid -CT at 12/22/20 1556 Impaired vision;Requires visual aid -CT at 12/22/20 1118 Respiratory Respiratory (WDL) X -CT at 12/22/20 1556 X -CT at 12/22/20 1118 Head of Bed Elevation Self regulated -CT at 12/22/20 1556 Self regulated -CT at 12/22/20 1118 Respiratory Pattern Normal -CT at 12/22/20 1556 Normal -CT at 12/22/20 1118 Chest Assessment Chest expansion symmetrical -CT at 12/22/20 1556 Chest expansion symmetrical -CT at 12/22/20 1118 Bilateral Breath Sounds Diminished -CT at 12/22/20 1556 Diminished -CT at 12/22/20 1118 R Breath Sounds Diminished -CT at 12/22/20 1556 Diminished -CT at 12/22/20 1118 L Breath Sounds Diminished -CT at 12/22/20 1556 Diminished -CT at 12/22/20 1118 Peripheral Vascular Peripheral Vascular (WDL) WDL -CT at 12/22/20 1556 WDL -CT at 12/22/20 1118 Cyanosis Nailbed -CT at 12/22/20 1118 Capillary Refill Less than/equal to 3 seconds (All extremities) -CT at 12/22/20 1118 Pulses R radial;L radial;R dorsalis pedis;L dorsalis pedis -CT at 12/22/20 1118 R Radial Pulse +2 -CT at 12/22/20 1556 +2 -CT at 12/22/20 1118 L Radial Pulse +2 -CT at 12/22/20 1556 +2 -CT at 12/22/20 1118 R Dorsalis Pedis Pulse +2 -CT at 12/22/20 1556 +2 -CT at 12/22/20 1118 L Dorsalis Pedis Pulse +2 -CT at 12/22/20 1556 +2 -CT at 12/22/20 1118 RUE Edema Trace -CT at 12/22/20 1556 Trace -CT at 12/22/20 1118 LUE Edema Trace -CT at 12/22/20 1556 Trace -CT at 12/22/20 1118 RLE Edema Trace -CT at 12/22/20 1556 Trace -CT at 12/22/20 1118 LLE Edema Trace -CT at 12/22/20 1556 Trace -CT at 12/22/20 1118 Cardiac Cardiac (WDL) WDL -CT at 12/22/20 1556 WDL -CT at 12/22/20 1118 Cardiac Regularity Regular -CT at 12/22/20 1556 Regular -CT at 12/22/20 1118 Heart Sounds S1, S2 -CT at 12/22/20 1556 S1, S2 -CT at 12/22/20 1118 Jugular Venous Distention (JVD) No -CT at 12/22/20 1556 No -CT at 12/22/20 1118 Cardiac Rhythm Normal Sinus Rhythm -CT at 12/22/20 1556 Normal Sinus Rhythm -CT at 12/22/20 1118 Video Game Maker On No -CT at 12/22/20 1556 No -CT at 12/22/20 1118 Telemetry Audible Yes -CT at 12/22/20 1556 Yes -CT at 12/22/20 1118 Telemetry Alarms Set Yes -CT at 12/22/20 1556 Yes -CT at 12/22/20 1118 Skin Assessment Integumentary (WDL) X -CT at 12/22/20 1118 Generalized Skin Color Flushed -CT at 12/22/20 1118 Generalized Skin Moisture Dryness -CT at 12/22/20 1118 Gastrointestinal Gastrointestinal (WDL) WDL -CT at 12/22/20 1556 Abdomen Inspection Soft;Rounded -CT at 12/22/20 1556 Pain Assessment Pain Assessment Scale 0-10 -CT at 12/22/20 1556 User Chang (r) = Recorded By, (t) = Taken By, (c) = Cosigned By Initials Name CT Rebecca Kamara RN * Ene Benson RN - 12/20/2020 1:18 PM CDT Dialysis Treatment Time Medications Dose Volume Route Initials 1235 CVC - Pack with Heparin 2400 uNITS `1.2 IN EACH PORT IC MM Education Able to Educate Patient Yes Patient Procedural Explain Needs Reinforcement Patient Information Patient Name Sommer Callahan Legal Sex Male Date of 1975 Patient tolerated treatment: Treatment initiated utilizing lab drawn at 12/20/20 @ 0301. Potassium level 4.0 meq/liter. 2K Dialysate utilized for hemodialysis t reatment per protocol. CVL is positional, had to end treatment 30 minutes earlie r due to arterial pressure increases due to positional line. Treatment Time: 2.5 hours UF Removal: 1 L Estimated Dry Weight: unknown Pre Weight: 89.4 kg Pre Weight Source: bed Post Weight: 88.4 kg Post Weight Source: pre weight minus UF removed Hepatitis Verified by: mm Treatment Start Time: 905 Treatment End Time: 1226 Most Recent Result within the last 7 days Lab Units 12/20/20 0301 SODIUM MEQ/L 134 POTASSIUM MEQ/L 4.0 CHLORIDE MEQ/L 101 CALCIUM mg/dL 8.1* BLOOD UREA NITROGEN mg/dL 24 Dialysis Orders (36h ago, onward) Start Ordered 12/20/20 0738 Hemodialysis inpatient Once Question Answer Comment K+ KPP (Potassium per Protocol) Ca++ 2.5 mg Bicarb 35 mEq / liter Na+ 140 mEq / liter Na+ Modeling: No Dialyzer F180 Dialysate Temperature (C) 37 BFR-As tolerated to a maximum of: Best Flow DFR 600 mL/min Duration of Treatment 3 Hours Dry weight (kg) or fluid removal (L) 1 Liter removed as tolerated Access Site [facility] 12/20/20 0738 12/19/20 0859 Hemodialysis inpatient Once Question Answer Comment K+ KPP (Potassium per Protocol) Ca++ 2.5 mg Bicarb 35 mEq / liter Na+ 140 mEq / liter Na+ Modeling: No Dialyzer F180 Dialysate Temperature (C) 37 BFR-As tolerated to a maximum of: Best Flow DFR 600 mL/min Duration of Treatment 3 Hours Dry weight (kg) or fluid removal (L) 1 to 2 liters as tolerated Access Site Central Line 12/19/20 0859 PRE/POST HEMODIALYSIS VITALS (last 8 hours) Vitals - November Vital Signs Row Name 1300 1227 1145 1130 1115 Temp 37.1 C (98.8 F) -Recorded by: PM, Recorded at: 12/20/20 1313 no documentation no documentatio n no documentation no documentation Temp src Oral -Recorded by: PM, Recorded at: 12/20/20 1313 no documentation no documentatio n no documentation no documentation Pulse 85 -Recorded by: PM, Recorded at: 12/20/20 1313 86 -Recorded by: PM, Recorded at: 12/20/20 1312 87 -Recorded by: PM, Recorded at: 12/20/20 1149 87 -Recorded by: PM, Recorded at: 12/20/20 1131 90 -Recorded by: PM, Recorded at: 12/20/20 1117 SpO2 95 % -Recorded by: PM, Recorded at: 12/20/20 1313 96 % -Recorded by: PM, Recorded at: 12/20/20 1312 95 % -Recorded by: PM, Recorded at: 12/20/20 1149 94 % -Recorded by: PM, Recorded at: 12/20/20 1131 96 % -Recorded by: PM, Recorded at: 12/20/20 1117 Resp 18 -Recorded by: PM, Recorded at: 12/20/20 1313 18 -Recorded by: PM, Recorded at: 12/20/20 1312 18 -Recorded by: PM, Recorded at: 12/20/20 1149 18 -Recorded by: PM, Recorded at: 12/20/20 1131 18 -Recorded by: PM, Recorded at: 12/20/20 1117 BP (Abnormal) 161/81 -Recorded by: PM, Recorded at: 12/20/20 1313 (Abnormal) 164/83 -Recorded by: PM, Recorded at: 12/20/20 1312 (Abnormal) 166/86 -Recorded by: PM, Recorded at: 12/20/20 1149 (Abnormal) 158/87 -Recorded by: PM, Recorded at: 12/20/20 1131 (Abnormal) 163/86 -Recorded by: PM, Recorded at: 12/20/20 1117 Weight no documentation 88.6 kg (195 lb 5.2 oz) -Recorded by: PM, Recorded at: 12/20/20 1315 no documentation no documentatio n no documentation Vital Signs Row Name 1100 1045 1030 1015 1000 Pulse 88 -Recorded by: PM, Recorded at: 12/20/20 1102 84 -Recorded by: PM, Recorded at: 12/20/20 1046 85 -Recorded by: PM, Recorded at: 12/20/20 1033 86 -Recorded by: PM, Recorded at: 12/20/20 1016 86 -Recorded by: PM, Recorded at: 12/20/20 1007 SpO2 96 % -Recorded by: PM, Recorded at: 12/20/20 1102 97 % -Recorded by: PM, Recorded at: 12/20/20 1046 96 % -Recorded by: PM, Recorded at: 12/20/20 1033 97 % -Recorded by: PM, Recorded at: 12/20/20 1016 97 % -Recorded by: PM, Recorded at: 12/20/20 1007 Resp 18 -Recorded by: PM, Recorded at: 12/20/20 1102 18 -Recorded by: PM, Recorded at: 12/20/20 1046 18 -Recorded by: PM, Recorded at: 12/20/20 1033 18 -Recorded by: PM, Recorded at: 12/20/20 1016 18 -Recorded by: PM, Recorded at: 12/20/20 1007 BP (Abnormal) 158/84 -Recorded by: PM, Recorded at: 12/20/20 1102 (Abnormal) 151/81 -Recorded by: PM, Recorded at: 12/20/20 1046 (Abnormal) 158/86 -Recorded by: PM, Recorded at: 12/20/20 1033 (Abnormal) 162/85 -Recorded by: PM, Recorded at: 12/20/20 1016 (Abnormal) 160/88 -Recorded by: PM, Recorded at: 12/20/20 1007 Vital Signs Row Name 0945 0930 0915 0906 0858 Temp no documentation no documentation no documentation no documentation 3 7.1 C (98.8 F) -Recorded by: PM, Recorded at: 12/20/20900 Temp src no documentation no documentation no documentation no documentatio n Oral -Recorded by: PM, Recorded at: 12/20/20900 Pulse 87 -Recorded by: PM, Recorded at: 12/20/20954 86 -Recorded by: PM, Recorded at: 12/20/20954 88 -Recorded by: PM, Recorded at: 12/20/20954 88 -Recorded by: PM, Recorded at: 12/20/20914 87 -Recorded by: PM, Recorded at: 12/20/20900 SpO2 97 % -Recorded by: PM, Recorded at: 12/20/20954 97 % -Recorded by: PM, Recorded at: 12/20/20954 97 % -Recorded by: PM, Recorded at: 12/20/20954 97 % -Recorded by: PM, Recorded at: 12/20/20914 91 % -Recorded by: PM, Recorded at: 12/20/20900 Resp 18 -Recorded by: PM, Recorded at: 12/20/20954 18 -Recorded by: PM, Recorded at: 12/20/20954 18 -Recorded by: PM, Recorded at: 12/20/20954 18 -Recorded by: PM, Recorded at: 12/20/20914 18 -Recorded by: PM, Recorded at: 12/20/20900 BP (Abnormal) 159/86 -Recorded by: PM, Recorded at: 12/20/20954 (Abnormal) 153/84 -Recorded by: PM, Recorded at: 12/20/20954 (Abnormal) 158/85 -Recorded by: PM, Recorded at: 12/20/20954 (Abnormal) 154/83 -Recorded by: PM, Recorded at: 12/20/20914 (Abnormal) 150/82 -Recorded by: PM, Recorded at: 12/20/20900 Vital Signs Row Name 0846 0719 0548 Temp no documentation 37 C (98.6 F) -Recorded by: LB, Recorded at: 12/20/20719 no documentation Temp src no documentation Oral -Recorded by: LB, Recorded at: 12/20/20719 no documentation Pulse no documentation 87 -Recorded by: LB, Recorded at: 12/20/20719 no documentation SpO2 no documentation 96 % -Recorded by: LB, Recorded at: 12/20/20719 no documentation Resp no documentation 18 -Recorded by: LB, Recorded at: 12/20/20719 no documentation BP no documentation 135/72 -Recorded by: LB, Recorded at: 12/20/20719 (Abnormal) 140/75 -Recorded by: LS, Recorded at: 12/20/20552 BP Location no documentation Right arm -Recorded by: LB, Recorded at: 12/20/20719 Right arm -Recorded by: LS, Recorded at: 12/20/20552 BP Method no documentation no documentation Machine (Non-invasive) -Recorded by: LS, Recorded at: 12/20/20552 Patient position no documentation Supine -Recorded by: LB, Recorded at: 12/20/20719 no documentation Weight 89.4 kg (197 lb 1.5 oz) -Recorded by: PM, Recorded at: 12/20/20848 no documentation no documentatio n User Chang Initials Name LS MONTSE Leonard CNA PM Patricia M Mills, RN PRE-TREATMENT (last 8 hours) Hemodialysis Pre-Treatment - November Pre-Hemodialysis Assessment Row Name 0846 Patient Status Arrived -Recorded by: PM, Recorded at: 12/20/20848 HD Pre-Treatment Hand-off Review of SBAR Completed Yes -Recorded by: PM, Recorded at: 12/20/20848 HD Pre-Treatment Report from Floor Nurse (name) Jarett Olmstead RN -Recorded by: PM, Recorded at: 12/20/20848 HBsAg Results Negative -Recorded by: PM, Recorded at: 12/20/20848 HBsAg Date Last Tested 11/26/20 -Recorded by: PM, Recorded at: 12/20/20848 Treatment Status Pending Start -Recorded by: PM, Recorded at: 12/20/20848 Weight 89.4 kg (197 lb 1.5 oz) -Recorded by: PM, Recorded at: 12/20/20848 Weight Source Bed -Recorded by: PM, Recorded at: 12/20/20848 Correct Order/Script Yes -Recorded by: PM, Recorded at: 12/20/20848 Correct Patient? Yes -Recorded by: PM, Recorded at: 12/20/20848 Correct Site/Side? Yes -Recorded by: PM, Recorded at: 12/20/20848 What Procedure? HD -Recorded by: PM, Recorded at: 12/20/20848 [facility] Consent Verified Yes -Recorded by: PM, Recorded at: 12/20/20848 pH 7.4 -Recorded by: PM, Recorded at: 12/20/20848 Gross Bleach Negative Yes -Recorded by: PM, Recorded at: 12/20/20848 Gross Bleach Check Time 0845 -Recorded by: PM, Recorded at: 12/20/20848 Chlorine Negative Yes -Recorded by: PM, Recorded at: 12/20/20848 Chlorine Check Time 0845 -Recorded by: PM, Recorded at: 12/20/20848 Machine Temperature 37 C (98.6 F) -Recorded by: PM, Recorded at: 12/20/20848 Dialyzer F-180 -Recorded by: PM, Recorded at: 12/20/20848 Meter Conductivity 14.2 -Recorded by: PM, Recorded at: 12/20/20848 Sodium Modeling NA -Recorded by: PM, Recorded at: 12/20/20848 Dialysate Na (mEq/L) 140 mEq/L -Recorded by: PM, Recorded at: 12/20/20848 Dialysate K (mEq/L) 2 mEq/L -Recorded by: PM, Recorded at: 12/20/20848 Dialysate CA (mEq/L) 2.5 mEq/L -Recorded by: PM, Recorded at: 12/20/20848 Dialysate HCO3 (mEq/L) 35 mEq/L -Recorded by: PM, Recorded at: 12/20/20848 Prime Ordered (mL) 150 mL -Recorded by: PM, Recorded at: 12/20/20848 Pre-Hemodialysis Comments iceboat -Recorded by: PM, Recorded at: 12/20/20848 Hemodialysis Catheter Triple Lumen Non-tunneled Right Internal jugular Row Name 0846 Hemodialysis Properties Placement Date: 12/13/20 -Recorded by: PP, Recorded at : 12/13/201416 Placement Time: 1413 -Recorded by: PP, Recorded at: 12/13/20 1 417 Inserted by: Dr Holly Allen -Recorded by: PP, Recorded at: 12/13/201416 Lot Number: [id number]. 12 Fr x 20 cm -Recorded by: PP, Recorded at: 12/13/201416 Access Type: Non-tunneled -Recorded by: PP, Recorded at: 12/13/201416 O rientation: Right -Recorded by: PP, Recorded at: 12/13/201416 Access Location : Internal jugular -Recorded by: PP, Recorded at: 12/13/201416 Technique: Mod ified Seldinger;Anatomical landmarks;Ultrasound Used -Recorded by: PP, Recorded at: 12/13/201416 Vessel Assessment (Ultrasound Only): Compressible -Recorded by: PP, Recorded at: 12/13/201416 Tunneled or Non-tunneled: Non-Tunneled -Re corded by: PP, Recorded at: 12/13/201416 Estimated Blood Loss: Minimal -Recor ded by: PP, Recorded at: 12/13/201416 Site Assessment WDL -Recorded by: PM, Recorded at: 12/20/20848 Catheter Packing Heparin -Recorded by: PM, Recorded at: 12/20/20848 Catheter Packing Interventions Packed -Recorded by: PM, Recorded at: 12/20/20848 Arterial Port Packing Volume (mL) 1.2 mL -Recorded by: PM, Recorded at: 12/20/20848 Venous Port Packing Volume (mL) 1.2 mL -Recorded by: PM, Recorded at: 12/20/20848 Hemodialysis Properties Placement Date: 12/13/20 -Recorded by: PP, Recorded at : 12/13/201416 Placement Time: 1413 -Recorded by: PP, Recorded at: 12/13/20 1 417 Inserted by: Dr Holly Allen -Recorded by: PP, Recorded at: 12/13/201416 Lot Number: [id number]. 12 Fr x 20 cm -Recorded by: PP, Recorded at: 12/13/201416 Orientation: Right -Recorded by: PP, Recorded at: 12/13/201416 Access L ocation: Internal jugular -Recorded by: PP, Recorded at: 12/13/201416 Techniq ue: Modified Seldinger;Anatomical landmarks;Ultrasound Used -Recorded by: RODRÍGUEZ R ecorded at: 12/13/201416 Vessel Assessment (Ultrasound Only): Compressible -R ecorded by: PP, Recorded at: 12/13/201416 Tunneled or Non-tunneled: Non-Tunnel ed -Recorded by: PP, Recorded at: 12/13/201416 Estimated Blood Loss: Minimal -Recorded by: PP, Recorded at: 12/13/201416 Hemodialysis Machine Check Row Name 0846 HD Machine # [id number] -Recorded by: PM, Recorded at: 12/20/20848 HD Reverse Osmosis # 112 -Recorded by: PM, Recorded at: 12/20/20848 Alarms Verified Yes -Recorded by: PM, Recorded at: 12/20/20848 HD Dialyzer Lot # [id number] -Recorded by: PM, Recorded at: 12/20/20848 HD Tubing Lot # [id number] -Recorded by: PM, Recorded at: 12/20/20848 HD RO Machine Log Completed Yes -Recorded by: PM, Recorded at: 12/20/20848 HD Initiation Checklist All Connections Secured;Venous Parameters Set;Saline L ine Double Clamped;Arterial Parameters Set;Prime Given;Air Foam Detector Engaged -Recorded by: PM, Recorded at: 12/20/20848 User Chang Initials Name PP Cynthia Ruiz RN PM Ene Benson RN TREATMENT (last 8 hours) Hemodialysis Treatment - November During Hemodialysis Assessment Row Name 1300 1227 1145 1130 1115 Treatment Start Time no documentation 0906 -Recorded by: PM, Recorded at: 12/20/20 1312 no documentation no documentatio n no documentation Treatment Stop Time no documentation 1227 -Recorded by: PM, Recorded at: 12/20/20 1312 no documentation no documentatio n no documentation Blood Flow Rate (mL/min) no documentation no documentation 400 mL/min -Recorded by: PM, Recorded at: 12/20/20 1149 400 mL/min -Recorded by: PM, Recorded at: 12/20/20 1131 400 mL/min -Recorded by: PM, Recorded at: 12/20/20 1117 Dialysate Flow Rate (mL/min) no documentation no documentation 600 -Recorded by: PM, Recorded at: 12/20/20 1149 600 -Recorded by: PM, Recorded at: 12/20/20 1131 600 -Recorded by: PM, Recorded at: 12/20/20 1117 Arterial Pressure (mmHg) no documentation no documentation -170 mmHg -Recorded by: PM, Recorded at: 12/20/20 1149 -140 mmHg -Recorded by: PM, Recorded at: 12/20/20 1131 -140 mmHg -Recorded by: PM, Recorded at: 12/20/20 1117 Venous Pressure (mmHg) no documentation no documentation 120 -Recorded by: PM, Recorded at: 12/20/20 1149 130 -Recorded by: PM, Recorded at: 12/20/20 1131 130 -Recorded by: PM, Recorded at: 12/20/20 1117 TMP (mmHg) no documentation no documentation 50 -Recorded by: PM, Recorded at: 12/20/20 1149 60 -Recorded by: PM, Recorded at: 12/20/20 1131 60 -Recorded by: PM, Recorded at: 12/20/20 1117 Ultrafiltration Rate (mL/min) no documentation no documentation 470 mL/min -Recorded by: PM, Recorded at: 12/20/20 1149 460 mL/min -Recorded by: PM, Recorded at: 12/20/20 1131 460 mL/min -Recorded by: PM, Recorded at: 12/20/20 1117 UF Removed (mL) no documentation 1078 mL -Recorded by: PM, Recorded at: 12/20/20 1312 1030 mL -Recorded by: PM, Recorded at: 12/20/20 1149 925 mL -Recorded by: PM, Recorded at: 12/20/20 1131 823 mL -Recorded by: PM, Recorded at: 12/20/20 111 Blood Pump Running no documentation no documentation Yes -Recorded by: PM, Recorded at: 12/20/20 1149 Yes -Recorded by: PM, Recorded at: 12/20/20 1131 Yes -Recorded by: PM, Recorded at: 12/20/20 1117 Arteriovenous Lines Secure no documentation no documentation Yes -Recorded by: PM, Recorded at: 12/20/20 1149 Yes -Recorded by: PM, Recorded at: 12/20/20 113 Yes -Recorded by: PM, Recorded at: 12/20/20 111 Transducer Check no documentation no documentation Yes -Recorded by: PM, Recorded at: 12/20/20 1149 Yes -Recorded by: PM, Recorded at: 12/20/20 113 Yes -Recorded by: PM, Recorded at: 12/20/20 111 HD Access Check no documentation no documentation Yes -Recorded by: PM, Recorded at: 12/20/20 114 Yes -Recorded by: PM, Recorded at: 12/20/20 113 Yes -Recorded by: PM, Recorded at: 12/20/20 111 Intra-Hemodialysis Comments post tx vital signs -Recorded by: PM, Recorded at: 12/20/201312 treatment completed -Recorded by: PM, Recorded at: 12/20/201311 line is positional, patient michele d over to left side -Recorded by: PM, Recorded at: 12/20/20 114 patient resting with eyes closed -Recorded by: PM, Recorded at: 12/20/20 113 patient resting with eyes closed -Recorded by: PM, Recorded at: 12/20/20 111 Temp 37.1 C (98.8 F) -Recorded by: PM, Recorded at: 12/20/201312 no documentation no documentatio n no documentation no documentation Temp src Oral -Recorded by: PM, Recorded at: 12/20/201312 no documentation no documentatio n no documentation no documentation Pulse 85 -Recorded by: PM, Recorded at: 12/20/201312 86 -Recorded by: PM, Recorded at: 12/20/20 1312 87 -Recorded by: PM, Recorded at: 12/20/20 1149 87 -Recorded by: PM, Recorded at: 12/20/20 113 90 -Recorded by: PM, Recorded at: 12/20/20 1117 Resp 18 -Recorded by: PM, Recorded at: 12/20/20 1313 18 -Recorded by: PM, Recorded at: 12/20/20 1312 18 -Recorded by: PM, Recorded at: 12/20/20 1149 18 -Recorded by: PM, Recorded at: 12/20/201130 18 -Recorded by: PM, Recorded at: 12/20/20 1117 BP (Abnormal) 161/81 -Recorded by: PM, Recorded at: 12/20/20 1313 (Abnormal) 164/83 -Recorded by: PM, Recorded at: 12/20/20 1312 (Abnormal) 166/86 -Recorded by: PM, Recorded at: 12/20/20 1149 (Abnormal) 158/87 -Recorded by: PM, Recorded at: 12/20/20 113 (Abnormal) 163/86 -Recorded by: PM, Recorded at: 12/20/20 1117 SpO2 95 % -Recorded by: PM, Recorded at: 12/20/201312 96 % -Recorded by: PM, Recorded at: 12/20/201311 95 % -Recorded by: PM, Recorded at: 12/20/20 114 94 % -Recorded by: PM, Recorded at: 12/20/201130 96 % -Recorded by: PM, Recorded at: 12/20/20 1117 O2 Device Nasal cannula -Recorded by: PM, Recorded at: 12/20/201312 Nasal cannula -Recorded by: PM, Recorded at: 12/20/201311 Nasal cannula -Recorded by: PM, Recorded at: 12/20/20 1149 Nasal cannula -Recorded by: PM, Recorded at: 12/20/201130 Nasal cannula -Recorded by: PM, Recorded at: 12/20/20 1117 O2 Flow Rate (L/min) 2.5 L/min -Recorded by: PM, Recorded at: 12/20/203 2.5 L/min -Recorded by: PM, Recorded at: 12/20/202 2.5 L/min -Recorded by: PM, Recorded at: 12/20/20 1149 2.5 L/min -Recorded by: PM, Recorded at: 12/20/20 1131 2.5 L/min -Recorded by: PM, Recorded at: 12/20/20 111 Hemodialysis Catheter Triple Lumen Non-tunneled Right Internal jugular Row Name 1300 1227 1145 1130 1115 Hemodialysis Properties Placement Date: 12/13/20 -Recorded by: PP, Recorded at : 12/13/201416 Placement Time: 1413 -Recorded by: PP, Recorded at: 12/13/20 1 417 Inserted by: Dr Holly Allen -Recorded by: PP, Recorded at: 12/13/201416 Lot Number: [id number]. 12 Fr x 20 cm -Recorded by: PP, Recorded at: 12/13/201416 Access Type: Non-tunneled -Recorded by: PP, Recorded at: 12/13/201416 O rientation: Right -Recorded by: PP, Recorded at: 12/13/201416 Access Location : Internal jugular -Recorded by: PP, Recorded at: 12/13/201416 Technique: Mod ified Seldinger;Anatomical landmarks;Ultrasound Used -Recorded by: PP, Recorded at: 12/13/201416 Vessel Assessment (Ultrasound Only): Compressible -Recorded by: PP, Recorded at: 12/13/201416 Tunneled or Non-tunneled: Non-Tunneled -Re corded by: PP, Recorded at: 12/13/201416 Estimated Blood Loss: Minimal -Recor ded by: PP, Recorded at: 12/13/201416 Hemodialysis Properties Placement Date: 12/13/20 -Recorded by: PP, Recorded at : 12/13/201416 Placement Time: 1413 -Recorded by: PP, Recorded at: 12/13/20 1 417 Inserted by: Dr Holly Allen -Recorded by: PP, Recorded at: 12/13/201416 Lot Number: [id number]. 12 Fr x 20 cm -Recorded by: PP, Recorded at: 12/13/201416 Orientation: Right -Recorded by: PP, Recorded at: 12/13/201416 Access L ocation: Internal jugular -Recorded by: PP, Recorded at: 12/13/201416 Techniq ue: Modified Seldinger;Anatomical landmarks;Ultrasound Used -Recorded by: PP, R ecorded at: 12/13/201416 Vessel Assessment (Ultrasound Only): Compressible -R ecorded by: PP, Recorded at: 12/13/201416 Tunneled or Non-tunneled: Non-Tunnel ed -Recorded by: PP, Recorded at: 12/13/201416 Estimated Blood Loss: Minimal -Recorded by: PP, Recorded at: 12/13/201416 During Hemodialysis Assessment Row Name 1100 1045 1030 1015 1000 Blood Flow Rate (mL/min) 400 mL/min -Recorded by: PM, Recorded at: 12/20/20 1102 450 mL/min -Recorded by: PM, Recorded at: 12/20/20 1046 450 mL/min -Recorded by: PM, Recorded at: 12/20/20 1033 450 mL/min -Recorded by: PM, Recorded at: 12/20/20 1016 450 mL/min -Recorded by: PM, Recorded at: 12/20/20 1007 Dialysate Flow Rate (mL/min) 600 -Recorded by: PM, Recorded at: 12/20/20 1102 600 -Recorded by: PM, Recorded at: 12/20/20 1046 600 -Recorded by: PM, Recorded at: 12/20/20 1033 600 -Recorded by: PM, Recorded at: 12/20/20 1016 600 -Recorded by: PM, Recorded at: 12/20/20 1007 Arterial Pressure (mmHg) -140 mmHg -Recorded by: PM, Recorded at: 12/20/20 1102 -180 mmHg -Recorded by: PM, Recorded at: 12/20/20 1046 -180 mmHg -Recorded by: PM, Recorded at: 12/20/20 1033 -180 mmHg -Recorded by: PM, Recorded at: 12/20/20 1016 -180 mmHg -Recorded by: PM, Recorded at: 12/20/20 1007 Venous Pressure (mmHg) 130 -Recorded by: PM, Recorded at: 12/20/20 1102 150 -Recorded by: PM, Recorded at: 12/20/20 1046 150 -Recorded by: PM, Recorded at: 12/20/20 1033 150 -Recorded by: PM, Recorded at: 12/20/20 1016 150 -Recorded by: PM, Recorded at: 12/20/20 1007 TMP (mmHg) 60 -Recorded by: PM, Recorded at: 12/20/20 1102 60 -Recorded by: PM, Recorded at: 12/20/20 1046 60 -Recorded by: PM, Recorded at: 12/20/20 1033 60 -Recorded by: PM, Recorded at: 12/20/20 1016 60 -Recorded by: PM, Recorded at: 12/20/20 1007 Ultrafiltration Rate (mL/min) 460 mL/min -Recorded by: PM, Recorded at: 12/20/20 1102 460 mL/min -Recorded by: PM, Recorded at: 12/20/20 1046 460 mL/min -Recorded by: PM, Recorded at: 12/20/20 1033 460 mL/min -Recorded by: PM, Recorded at: 12/20/20 1016 460 mL/min -Recorded by: PM, Recorded at: 12/20/20 1007 UF Removed (mL) 691 mL -Recorded by: PM, Recorded at: 12/20/20 1102 610 mL -Recorded by: PM, Recorded at: 12/20/20 1046 508 mL -Recorded by: PM, Recorded at: 12/20/20 1033 381 mL -Recorded by: PM, Recorded at: 12/20/20 1016 300 mL -Recorded by: PM, Recorded at: 12/20/20 1007 Blood Pump Running Yes -Recorded by: PM, Recorded at: 12/20/20 1102 Yes -Recorded by: PM, Recorded at: 12/20/20 1046 Yes -Recorded by: PM, Recorded at: 12/20/20 1033 Yes -Recorded by: PM, Recorded at: 12/20/20 1016 Yes -Recorded by: PM, Recorded at: 12/20/20 1007 Arteriovenous Lines Secure Yes -Recorded by: PM, Recorded at: 12/20/20 1102 Yes -Recorded by: PM, Recorded at: 12/20/20 1046 Yes -Recorded by: PM, Recorded at: 12/20/20 1033 Yes -Recorded by: PM, Recorded at: 12/20/20 1016 Yes -Recorded by: PM, Recorded at: 12/20/20 1007 Transducer Check Yes -Recorded by: PM, Recorded at: 12/20/20 1102 Yes -Recorded by: PM, Recorded at: 12/20/20 1046 Yes -Recorded by: PM, Recorded at: 12/20/20 1033 Yes -Recorded by: PM, Recorded at: 12/20/20 1016 Yes -Recorded by: PM, Recorded at: 12/20/20 1007 HD Access Check Yes -Recorded by: PM, Recorded at: 12/20/20 1102 Yes -Recorded by: PM, Recorded at: 12/20/20 1046 Yes -Recorded by: PM, Recorded at: 12/20/20 1033 Yes -Recorded by: PM, Recorded at: 12/20/20 1016 Yes -Recorded by: PM, Recorded at: 12/20/20 1007 Intra-Hemodialysis Comments patient resting with eyes closed -Recorded by: PM, Recorded at: 12/20/20 1102 patient resting with eyes closed -Recorded by: PM, Recorded at: 12/20/20 1046 patient resting with eyes closed -Recorded by: PM, Recorded at: 12/20/20 1033 patient resting with eyes closed -Recorded by: PM, Recorded at: 12/20/20 1016 patient resting with eyes closed -Recorded by: PM, Recorded at: 12/20/20 1007 Pulse 88 -Recorded by: PM, Recorded at: 12/20/20 1102 84 -Recorded by: PM, Recorded at: 12/20/20 1046 85 -Recorded by: PM, Recorded at: 12/20/20 1033 86 -Recorded by: PM, Recorded at: 12/20/20 1016 86 -Recorded by: PM, Recorded at: 12/20/20 1007 Resp 18 -Recorded by: PM, Recorded at: 12/20/20 1102 18 -Recorded by: PM, Recorded at: 12/20/20 1046 18 -Recorded by: PM, Recorded at: 12/20/20 1033 18 -Recorded by: PM, Recorded at: 12/20/20 1016 18 -Recorded by: PM, Recorded at: 12/20/20 1007 BP (Abnormal) 158/84 -Recorded by: PM, Recorded at: 12/20/20 1102 (Abnormal) 151/81 -Recorded by: PM, Recorded at: 12/20/20 1046 (Abnormal) 158/86 -Recorded by: PM, Recorded at: 12/20/20 1033 (Abnormal) 162/85 -Recorded by: PM, Recorded at: 12/20/20 1016 (Abnormal) 160/88 -Recorded by: PM, Recorded at: 12/20/20 1007 SpO2 96 % -Recorded by: PM, Recorded at: 12/20/20 1102 97 % -Recorded by: PM, Recorded at: 12/20/20 1046 96 % -Recorded by: PM, Recorded at: 12/20/20 1033 97 % -Recorded by: PM, Recorded at: 12/20/20 1016 97 % -Recorded by: PM, Recorded at: 12/20/20 1007 O2 Device Nasal cannula -Recorded by: PM, Recorded at: 12/20/20 1102 Nasal cannula -Recorded by: PM, Recorded at: 12/20/20 1046 Nasal cannula -Recorded by: PM, Recorded at: 12/20/20 1033 Nasal cannula -Recorded by: PM, Recorded at: 12/20/20 1016 Nasal cannula -Recorded by: PM, Recorded at: 12/20/20 1007 O2 Flow Rate (L/min) 2.5 L/min -Recorded by: PM, Recorded at: 12/20/20 1102 2.5 L/min -Recorded by: PM, Recorded at: 12/20/20 1046 2.5 L/min -Recorded by: PM, Recorded at: 12/20/20 1033 2.5 L/min -Recorded by: PM, Recorded at: 12/20/20 1016 2.5 L/min -Recorded by: PM, Recorded at: 12/20/20 1007 Hemodialysis Catheter Triple Lumen Non-tunneled Right Internal jugular Row Name 1100 1045 1030 1015 1000 Hemodialysis Properties Placement Date: 12/13/20 -Recorded by: PP, Recorded at : 12/13/201416 Placement Time: 1413 -Recorded by: PP, Recorded at: 12/13/20 1 417 Inserted by: Dr Holly Allen -Recorded by: PP, Recorded at: 12/13/201416 Lot Number: [id number]. 12 Fr x 20 cm -Recorded by: PP, Recorded at: 12/13/201416 Access Type: Non-tunneled -Recorded by: PP, Recorded at: 12/13/201416 O rientation: Right -Recorded by: PP, Recorded at: 12/13/201416 Access Location : Internal jugular -Recorded by: PP, Recorded at: 12/13/201416 Technique: Mod ified Seldinger;Anatomical landmarks;Ultrasound Used -Recorded by: PP, Recorded at: 12/13/201416 Vessel Assessment (Ultrasound Only): Compressible -Recorded by: PP, Recorded at: 12/13/201416 Tunneled or Non-tunneled: Non-Tunneled -Re corded by: PP, Recorded at: 12/13/201416 Estimated Blood Loss: Minimal -Recor ded by: PP, Recorded at: 12/13/201416 Hemodialysis Properties Placement Date: 12/13/20 -Recorded by: PP, Recorded at : 12/13/201416 Placement Time: 1413 -Recorded by: PP, Recorded at: 12/13/20 1 417 Inserted by: Dr Holly Allen -Recorded by: PP, Recorded at: 12/13/201416 Lot Number: [id number]. 12 Fr x 20 cm -Recorded by: RODRÍGUEZ, Recorded at: 12/13/201416 Orientation: Right -Recorded by: PP, Recorded at: 12/13/201416 Access L ocation: Internal jugular -Recorded by: PP, Recorded at: 12/13/201416 Techniq ue: Modified Wanderer;Anatomical landmarks;Ultrasound Used -Recorded by: RODRÍGUEZ, R ecorded at: 12/13/201416 Vessel Assessment (Ultrasound Only): Compressible -R ecorded by: RODRÍGUEZ, Recorded at: 12/13/201416 Tunneled or Non-tunneled: Non-Tunnel ed -Recorded by: PP, Recorded at: 12/13/201416 Estimated Blood Loss: Minimal -Recorded by: PP, Recorded at: 12/13/201416 During Hemodialysis Assessment Row Name 0945 0930 0915 0906 0858 Treatment Start Time no documentation no documentation no documentation 090 6 -Recorded by: PM, Recorded at: 12/20/20914 no documentation Blood Flow Rate (mL/min) 450 mL/min -Recorded by: PM, Recorded at: 12/20/20954 450 mL/min -Recorded by: PM, Recorded at: 12/20/20954 450 mL/min -Recorded by: PM, Recorded at: 12/20/20954 450 mL/min -Recorded by: PM, Recorded at: 12/20/20914 no documentation Dialysate Flow Rate (mL/min) 600 -Recorded by: PM, Recorded at: 12/20/20954 600 -Recorded by: PM, Recorded at: 12/20/20954 600 -Recorded by: PM, Recorded at: 12/20/20954 600 -Recorded by: PM, Recorded at: 12/20/20914 no documentation Arterial Pressure (mmHg) -180 mmHg -Recorded by: PM, Recorded at: 12/20/20954 -170 mmHg -Recorded by: PM, Recorded at: 12/20/20954 -170 mmHg -Recorded by: PM, Recorded at: 12/20/20954 -170 mmHg -Recorded by: PM, Recorded at: 12/20/20914 no documentation Venous Pressure (mmHg) 150 -Recorded by: PM, Recorded at: 12/20/20954 150 -Recorded by: PM, Recorded at: 12/20/20954 150 -Recorded by: PM, Recorded at: 12/20/20954 150 -Recorded by: PM, Recorded at: 12/20/20914 no documentation TMP (mmHg) 60 -Recorded by: PM, Recorded at: 12/20/20954 60 -Recorded by: PM, Recorded at: 12/20/20954 60 -Recorded by: PM, Recorded at: 12/20/20954 60 -Recorded by: PM, Recorded at: 12/20/20914 no documentation Ultrafiltration Rate (mL/min) 460 mL/min -Recorded by: PM, Recorded at: 12/20/20954 430 mL/min -Recorded by: PM, Recorded at: 12/20/20954 430 mL/min -Recorded by: PM, Recorded at: 12/20/20954 430 mL/min -Recorded by: PM, Recorded at: 12/20/20914 no documentation UF Removed (mL) 225 mL -Recorded by: PM, Recorded at: 12/20/20 1014 150 mL -Recorded by: PM, Recorded at: 12/20/20 1014 75 mL -Recorded by: PM, Recorded at: 12/20/20 1014 0 mL -Recorded by: PM, Recorded at: 12/20/20914 no documentation Blood Pump Running Yes -Recorded by: PM, Recorded at: 12/20/20954 Yes -Recorded by: PM, Recorded at: 12/20/20954 Yes -Recorded by: PM, Recorded at: 12/20/20954 Yes -Recorded by: PM, Recorded at: 12/20/20914 no documentation Arteriovenous Lines Secure Yes -Recorded by: PM, Recorded at: 12/20/20954 Yes -Recorded by: PM, Recorded at: 12/20/20954 Yes -Recorded by: PM, Recorded at: 12/20/20954 Yes -Recorded by: PM, Recorded at: 12/20/20914 no documentation Transducer Check Yes -Recorded by: PM, Recorded at: 12/20/20954 Yes -Recorded by: PM, Recorded at: 12/20/20954 Yes -Recorded by: PM, Recorded at: 12/20/20954 Yes -Recorded by: PM, Recorded at: 12/20/20914 no documentation HD Access Check Yes -Recorded by: PM, Recorded at: 12/20/20954 Yes -Recorded by: PM, Recorded at: 12/20/20954 Yes -Recorded by: PM, Recorded at: 12/20/20954 Yes -Recorded by: PM, Recorded at: 12/20/20914 no documentation Intra-Hemodialysis Comments patient resting with eyes closed -Recorded by: PM, Recorded at: 12/20/20954 patient resting with eyes closed -Recorded by: PM, Recorded at: 12/20/20954 patient resting with eyes closed -Recorded by: PM, Recorded at: 12/20/20954 TREATMENT INITIATED -Recorded by: PM, Recorded at: 12/20/20914 PRE TX VITAL SIGNS -Recorded by: PM, Recorded at: 12/20/20900 Temp no documentation no documentation no documentation no documentation 3 7.1 C (98.8 F) -Recorded by: PM, Recorded at: 12/20/20900 Temp src no documentation no documentation no documentation no documentatio n Oral -Recorded by: PM, Recorded at: 12/20/20900 Pulse 87 -Recorded by: PM, Recorded at: 12/20/20954 86 -Recorded by: PM, Recorded at: 12/20/20954 88 -Recorded by: PM, Recorded at: 12/20/20954 88 -Recorded by: PM, Recorded at: 12/20/20914 87 -Recorded by: PM, Recorded at: 12/20/20900 Resp 18 -Recorded by: PM, Recorded at: 12/20/20954 18 -Recorded by: PM, Recorded at: 12/20/20954 18 -Recorded by: PM, Recorded at: 12/20/20954 18 -Recorded by: PM, Recorded at: 12/20/20914 18 -Recorded by: PM, Recorded at: 12/20/20900 BP (Abnormal) 159/86 -Recorded by: PM, Recorded at: 12/20/20954 (Abnormal) 153/84 -Recorded by: PM, Recorded at: 12/20/20954 (Abnormal) 158/85 -Recorded by: PM, Recorded at: 12/20/20954 (Abnormal) 154/83 -Recorded by: PM, Recorded at: 12/20/20914 (Abnormal) 150/82 -Recorded by: PM, Recorded at: 12/20/20900 SpO2 97 % -Recorded by: PM, Recorded at: 12/20/20954 97 % -Recorded by: PM, Recorded at: 12/20/20954 97 % -Recorded by: PM, Recorded at: 12/20/20954 97 % -Recorded by: PM, Recorded at: 12/20/20914 91 % -Recorded by: PM, Recorded at: 12/20/20900 O2 Device Nasal cannula -Recorded by: PM, Recorded at: 12/20/20954 Nasal cannula -Recorded by: PM, Recorded at: 12/20/20954 Nasal cannula -Recorded by: PM, Recorded at: 12/20/20954 Nasal cannula -Recorded by: PM, Recorded at: 12/20/20914 Nasal cannula -Recorded by: PM, Recorded at: 12/20/20900 O2 Flow Rate (L/min) 2.5 L/min -Recorded by: PM, Recorded at: 12/20/20954 2.5 L/min -Recorded by: PM, Recorded at: 12/20/20954 2.5 L/min -Recorded by: PM, Recorded at: 12/20/20954 2.5 L/min -Recorded by: PM, Recorded at: 12/20/20914 2.5 L/min -Recorded by: PM, Recorded at: 12/20/20900 Hemodialysis Catheter Triple Lumen Non-tunneled Right Internal jugular Row Name 0945 0930 0915 0906 0858 Hemodialysis Properties Placement Date: 12/13/20 -Recorded by: PP, Recorded at : 12/13/201416 Placement Time: 1413 -Recorded by: PP, Recorded at: 12/13/20 1 417 Inserted by: Dr Holly Allen -Recorded by: PP, Recorded at: 12/13/201416 Lot Number: [id number]. 12 Fr x 20 cm -Recorded by: PP, Recorded at: 12/13/201416 Access Type: Non-tunneled -Recorded by: PP, Recorded at: 12/13/201416 O rientation: Right -Recorded by: PP, Recorded at: 12/13/201416 Access Location : Internal jugular -Recorded by: PP, Recorded at: 12/13/201416 Technique: Mod ified Seldinger;Anatomical landmarks;Ultrasound Used -Recorded by: PP, Recorded at: 12/13/201416 Vessel Assessment (Ultrasound Only): Compressible -Recorded by: PP, Recorded at: 12/13/201416 Tunneled or Non-tunneled: Non-Tunneled -Re corded by: PP, Recorded at: 12/13/201416 Estimated Blood Loss: Minimal -Recor ded by: PP, Recorded at: 12/13/201416 Hemodialysis Properties Placement Date: 12/13/20 -Recorded by: PP, Recorded at : 12/13/201416 Placement Time: 1413 -Recorded by: PP, Recorded at: 12/13/20 1 417 Inserted by: Dr Holly Allen -Recorded by: PP, Recorded at: 12/13/201416 Lot Number: [id number]. 12 Fr x 20 cm -Recorded by: PP, Recorded at: 12/13/201416 Orientation: Right -Recorded by: PP, Recorded at: 12/13/201416 Access L ocation: Internal jugular -Recorded by: PP, Recorded at: 12/13/201416 Techniq ue: Modified Seldinger;Anatomical landmarks;Ultrasound Used -Recorded by: RODRÍGUEZ, R ecorded at: 12/13/201416 Vessel Assessment (Ultrasound Only): Compressible -R ecorded by: PP, Recorded at: 12/13/201416 Tunneled or Non-tunneled: Non-Tunnel ed -Recorded by: PP, Recorded at: 12/13/201416 Estimated Blood Loss: Minimal -Recorded by: PP, Recorded at: 12/13/201416 User Chang Initials Name PP Cynthia Ruiz RN PM Ene Benson RN POST-TREATMENT (last 8 hours) Hemodialysis Post-Treatment - November Post-Hemodialysis Assessment Row Name 1227 0846 Rinseback Volume (mL) 150 mL -Recorded by: PM, Recorded at: 12/20/201314 no documentation Total Liters Processed (L/min) 60.7 L/min -Recorded by: PM, Recorded at: 12/20/201314 no documentation Dialyzer Clearance Lightly streaked -Recorded by: PM, Recorded at: 12/20/201314 no documentation Duration of Treatment (minutes) 149 minutes -Recorded by: PM, Recorded at: 12/20/201314 no documentation Hemodialysis Intake (mL) 300 mL -Recorded by: PM, Recorded at: 12/20/201314 no documentation Hemodialysis Output (mL) 1078 mL -Recorded by: PM, Recorded at: 12/20/201314 no documentation Patient Response to Treatment pt tolerated without problems, CVL is positional -Recorded by: PM, Recorded at: 12/20/201314 no documentation Post-Hemodialysis Comments blood returned, cvc packed with heparin -Recorded by: PM, Recorded at: 12/20/201314 no documentation Weight 88.6 kg (195 lb 5.2 oz) -Recorded by: PM, Recorded at: 12/20/201314 no documentation HD Post-Treatment Hand-off Report Completed Yes -Recorded by: PM, Recorded at: 12/20/201314 no documentation Post Treatment Reported To Buffy Wan RN -Recorded by: PM, Recorded at: 12/20/201315 no documentation Hemodialysis Catheter Triple Lumen Non-tunneled Right Internal jugular Row Name 1227 0846 Hemodialysis Properties Placement Date: 12/13/20 -Recorded by: RODRÍGUEZ, Recorded at : 12/13/201416 Placement Time: 1414 -Recorded by: PP, Recorded at: 12/13/20 1 417 Inserted by: Dr Holly Allen -Recorded by: PP, Recorded at: 12/13/201416 Lot Number: [id number]. 12 Fr x 20 cm -Recorded by: PP, Recorded at: 12/13/201416 Access Type: Non-tunneled -Recorded by: PP, Recorded at: 12/13/201416 O rientation: Right -Recorded by: PP, Recorded at: 12/13/201416 Access Location : Internal jugular -Recorded by: PP, Recorded at: 12/13/201416 Technique: Mod ified Seldinger;Anatomical landmarks;Ultrasound Used -Recorded by: PP, Recorded at: 12/13/201416 Vessel Assessment (Ultrasound Only): Compressible -Recorded by: PP, Recorded at: 12/13/201416 Tunneled or Non-tunneled: Non-Tunneled -Re corded by: PP, Recorded at: 12/13/201416 Estimated Blood Loss: Minimal -Recor ded by: PP, Recorded at: 12/13/201416 Site Assessment WDL -Recorded by: PM, Recorded at: 12/20/201315 no documentation Catheter Packing Heparin -Recorded by: PM, Recorded at: 12/20/201315 no documentation Catheter Packing Interventions Packed -Recorded by: PM, Recorded at: 12/20/201315 no documentation Arterial Port Packing Volume (mL) 1.2 mL -Recorded by: PM, Recorded at: 12/20/201315 no documentation Venous Port Packing Volume (mL) 1.2 mL -Recorded by: PM, Recorded at: 12/20/201315 no documentation Lumen 1 Status Disinfecting Cap;Heparin locked -Recorded by: PM, Recorded at: 12/20/201315 Disinfecting Cap;Heparin locked -Recorded by: PM, Recorded at: 12/20/201316 Lumen 1 Patency Flushes without resistance -Recorded by: PM, Recorded at: 12/20/201315 Brisk blood return (3ml in 3 sec) ;Flushes without resistance -Recorded by: PM, Recorded at: 12/20/201316 Lumen 2 Status Disinfecting Cap;Heparin locked -Recorded by: PM, Recorded at: 12/20/201315 Disinfecting Cap;Heparin locked -Recorded by: PM, Recorded at: 12/20/201316 Lumen 2 Patency Flushes without resistance -Recorded by: PM, Recorded at: 12/20/201315 Brisk blood return (3ml in 3 sec) ;Flushes without resistance -Recorded by: PM, Recorded at: 12/20/201316 Lumen 3 Status Disinfecting Cap -Recorded by: PM, Recorded at: 12/20/201315 no documentation Dressing Type Antimicrobial;Transparent -Recorded by: PM, Recorded at: 12/20/201315 no documentation Dressing Status Checked;Intact -Recorded by: PM, Recorded at: 12/20/201315 no documentation Hemodialysis Properties Placement Date: 12/13/20 -Recorded by: PP, Recorded at : 12/13/201416 Placement Time: 1413 -Recorded by: PP, Recorded at: 12/13/20 1 417 Inserted by: Dr Holly Allen -Recorded by: PP, Recorded at: 12/13/201416 Lot Number: [id number]. 12 Fr x 20 cm -Recorded by: RODRÍGUEZ, Recorded at: 12/13/201416 Orientation: Right -Recorded by: PP, Recorded at: 12/13/201416 Access L ocation: Internal jugular -Recorded by: PP, Recorded at: 12/13/201416 Techniq ue: Modified Seldinger;Anatomical landmarks;Ultrasound Used -Recorded by: RODRÍGUEZ R ecorded at: 12/13/201416 Vessel Assessment (Ultrasound Only): Compressible -R ecorded by: RODRÍGUEZ, Recorded at: 12/13/201416 Tunneled or Non-tunneled: Non-Tunnel ed -Recorded by: RODRÍGUEZ, Recorded at: 12/13/201416 Estimated Blood Loss: Minimal -Recorded by: PP, Recorded at: 12/13/201416 User Chang Initials Name PP Cynthia Ruiz, RN PM Ene Benson, RN HD ASSESSMENT (last 8 hours) Hemodialysis Assessment - November Nursing Assessment Checks Row Name 122 0846 Hepatitis Status Verified Yes -Recorded by: PM, Recorded at: 12/20/201317 Yes -Recorded by: PM, Recorded at: 12/20/20857 [facility] Consent Verified Yes -Recorded by: PM, Recorded at: 12/20/201317 no documentation Neurological Row Name 3772 0846 Neuro (WDL) WDL -Recorded by: PM, Recorded at: 12/20/201317 WDL -Recorded by: PM, Recorded at: 12/20/20857 Level of Consciousness 0 -Recorded by: PM, Recorded at: 12/20/201317 0 -Recorded by: PM, Recorded at: 12/20/20857 Orientation Level Oriented to person;Oriented to place;Oriented to time;[place] ed to situation -Recorded by: PM, Recorded at: 12/20/201317 Oriented to person;Oriented to pl traci;Oriented to time;Oriented to situation -Recorded by: PM, Recorded at: 12/20/20857 Cognition No deficit noted -Recorded by: PM, Recorded at: 12/20/201317 no documentation HEENT Row Name 1227 0846 HEENT (WDL) X -Recorded by: PM, Recorded at: 12/20/201317 no documentation R Eye Impaired vision;Requires visual aid -Recorded by: PM, Recorded at: 12/20/201317 Impaired vision;Requires visual a id -Recorded by: PM, Recorded at: 12/20/20857 L Eye Impaired vision;Requires visual aid -Recorded by: PM, Recorded at: 12/20/201317 Impaired vision;Requires visual a id -Recorded by: PM, Recorded at: 12/20/20857 Respiratory Row Name 1227 0846 Respiratory (WDL) WDL -Recorded by: PM, Recorded at: 12/20/201317 WDL -Recorded by: PM, Recorded at: 12/20/20857 Head of Bed Elevation Self regulated -Recorded by: PM, Recorded at: 12/20/201317 Self regulated -Recorded by: PM, Recorded at: 12/20/20857 Respiratory Pattern Normal -Recorded by: PM, Recorded at: 12/20/201317 Normal -Recorded by: PM, Recorded at: 12/20/20857 Chest Assessment Chest expansion symmetrical -Recorded by: PM, Recorded at: 12/20/201317 Chest expansion symmetrical -Recorded by: PM, Recorded at: 12/20/20857 Bilateral Breath Sounds Clear;Equal -Recorded by: PM, Recorded at: 12/20/201317 Clear;Equal -Recorded by: PM, Recorded at: 12/20/20857 Peripheral Vascular Row Name 1227 0846 Peripheral Vascular (WDL) X -Recorded by: PM, Recorded at: 12/20/201317 X -Recorded by: PM, Recorded at: 12/20/20857 RLE Edema Trace -Recorded by: PM, Recorded at: 12/20/201317 Trace -Recorded by: PM, Recorded at: 12/20/20857 LLE Edema Trace -Recorded by: PM, Recorded at: 12/20/201317 Trace -Recorded by: PM, Recorded at: 12/20/20857 Cardiac Row Name 1227 0846 Cardiac (WDL) WDL -Recorded by: PM, Recorded at: 12/20/201317 WDL -Recorded by: PM, Recorded at: 12/20/20857 Cardiac Regularity Regular -Recorded by: PM, Recorded at: 12/20/201317 Regular -Recorded by: PM, Recorded at: 12/20/20857 Heart Sounds S1, S2 -Recorded by: PM, Recorded at: 12/20/201317 S1, S2 -Recorded by: PM, Recorded at: 12/20/20857 Jugular Venous Distention (JVD) No -Recorded by: PM, Recorded at: 12/20/201317 No -Recorded by: PM, Recorded at: 12/20/20857 Skin Assessment Row Name 1227 0846 Integumentary (WDL) X -Recorded by: PM, Recorded at: 12/20/201317 X -Recorded by: PM, Recorded at: 12/20/20857 Generalized Skin Moisture Dryness -Recorded by: PM, Recorded at: 12/20/201317 Dryness -Recorded by: PM, Recorded at: 12/20/20857 Gastrointestinal Row Name 1227 0846 Gastrointestinal (WDL) X -Recorded by: PM, Recorded at: 12/20/201317 X -Recorded by: PM, Recorded at: 12/20/20857 Abdomen Inspection Soft;Rounded -Recorded by: PM, Recorded at: 12/20/201317 Soft;Rounded -Recorded by: PM, Recorded at: 12/20/20857 Bowel Sounds (All Quadrants) Audible -Recorded by: PM, Recorded at: 12/20/201317 Audible -Recorded by: PM, Recorded at: 12/20/20857 Pain Assessment Row Name 1227 0846 Patient's Stated Pain Goal 0 -Recorded by: PM, Recorded at: 12/20/201317 0 -Recorded by: PM, Recorded at: 12/20/20857 Pain Assessment Scale 0-10 -Recorded by: PM, Recorded at: 12/20/201317 Scale 0-10 -Recorded by: PM, Recorded at: 12/20/20857 Pain Score 4 -Recorded by: PM, Recorded at: 12/20/201317 4 -Recorded by: PM, Recorded at: 12/20/20857 Pain Type Acute pain -Recorded by: PM, Recorded at: 12/20/201317 no documentation Pain Location Head -Recorded by: PM, Recorded at: 12/20/201317 no documentation User Chang Initials Name PM Ene Benson RN * Johny Saini RN - 12/19/2020 1:12 PM CDT Dialysis Treatment Time Medications Dose Volume Route Initials Education Able to Educate Patient Yes Patient Fluid Management Explain Verbalizes Understanding Patient Information Patient Name Sommer Callahan Legal Sex Male Patient tolerated treatment: well Treatment Time: 180 UF Removal: 2 Estimated Dry Weight: 0 Pre Weight: 92.1kg Pre Weight Source: bed Post Weight: 90.1kg Post Weight Source: bed Hepatitis Verified by: MITCH WILLARD Treatment Start Time:0954 Treatment End Time:1255 Most Recent Result within the last 7 days Lab Units 12/19/20 0330 SODIUM MEQ/L 133 POTASSIUM MEQ/L 4.4 CHLORIDE MEQ/L 101 CALCIUM mg/dL 7.8* BLOOD UREA NITROGEN mg/dL 25 Dialysis Orders (36h ago, onward) Start Ordered 12/19/20 0859 Hemodialysis inpatient Once Question Answer Comment K+ KPP (Potassium per Protocol) Ca++ 2.5 mg Bicarb 35 mEq / liter Na+ 140 mEq / liter Na+ Modeling: No Dialyzer F180 Dialysate Temperature (C) 37 BFR-As tolerated to a maximum of: Best Flow DFR 600 mL/min Duration of Treatment 3 Hours Dry weight (kg) or fluid removal (L) 1 to 2 liters as tolerated Access Site Central Line 12/19/20 0859 PRE/POST HEMODIALYSIS VITALS (last 8 hours) Vitals - Wed December 19, 2020 Row Name 1300 1255 1245 1230 1215 Vital Signs Temp 37.1 C (98.8 F) -KB at 12/19/20 1309 Temp src Oral -KB at 12/19/20 1309 Pulse 80 -KB at 12/19/20 1309 77 -KB at 12/19/20 1309 94 -KB at 12/19/20 1246 93 -KB at 12/19/20 1246 94 -KB at 12/19/20 1228 Resp 18 -KB at 12/19/20 1309 18 -KB at 12/19/20 1309 18 -KB at 12/19/20 1246 18 -KB at 12/19/20 1246 18 -KB at 12/19/20 1228 BP 128/74 -KB at 12/19/20 1309 124/73 -KB at 12/19/20 1309 (!) 144/79 -KB at 12/19/20 1246 (!) 142/72 -KB at 12/19/20 1246 (!) 153/86 -KB at 12/19/20 1228 Weight 90.1 kg (198 lb 10.2 oz) -KB at 12/19/20 1312 Row Name 1200 1145 1130 1115 1100 Vital Signs Pulse 94 -KB at 12/19/20 1228 98 -KB at 12/19/20 1228 96 -KB at 12/19/20 1228 100 -KB at 12/19/20 1124 98 -KB at 12/19/20 1124 Resp 18 -KB at 12/19/20 1228 18 -KB at 12/19/20 1228 18 -KB at 12/19/20 1228 18 -KB at 12/19/20 1124 18 -KB at 12/19/20 1124 BP (!) 140/79 -KB at 12/19/20 1228 133/77 -KB at 12/19/20 1228 136/79 -KB at 12/19/20 1228 128/76 -KB at 12/19/20 1124 126/68 -KB at 12/19/20 1124 Row Name 1045 1030 1015 1000 0954 Vital Signs Pulse 100 -KB at 12/19/20 1124 (!) 102 -LB (r) KB (t) at 12/19/20 1045 100 -LB (r) KB (t) at 12/19/20 1045 101 -KB at 12/19/20 1007 94 -KB at 12/19/20 1007 Resp 18 -KB at 12/19/20 1124 18 -LB (r) KB (t) at 12/19/20 1045 18 -LB (r) KB (t) at 12/19/20 1045 18 -KB at 12/19/20 1007 18 -KB at 12/19/20 1007 BP 137/75 -KB at 12/19/20 1124 129/72 -LB (r) KB (t) at 12/19/20 1045 131/73 -LB (r) KB (t) at 12/19/20 1045 135/76 -KB at 12/19/20 1007 (!) 140/82 -KB at 12/19/20 1007 Row Name 0942 0720 0607 Vital Signs Temp 37.3 C (99.1 F) -KB at 12/19/20 0948 37.3 C (99.1 F) -TZ at 12/19/20 0726 Temp src Oral -KB at 12/19/20 0948 Oral -TZ at 12/19/20 0726 Pulse 97 -KB at 12/19/20 1007 94 -TZ at 12/19/20 0726 SpO2 91 % -TZ at 12/19/20 0726 Resp 18 -KB at 12/19/20 0948 18 -TZ at 12/19/20 0726 BP (!) 141/82 -KB at 12/19/20 0948 (!) 147/85 -TZ at 12/19/20 0726 (!) 142/88 -LS at 12/19/20 0607 BP Location Right arm -TZ at 12/19/20 07 Right arm -LS at 12/19/20 06 BP Method Machine (Non-invasive) -LS at 12/19/20 06 Patient position Lying left side -TZ at 12/19/20 0726 Weight 92.1 kg (203 lb 0.7 oz) -KB at 12/19/20 0945 User Chang (r) = Recorded By, (t) = Taken By, (c) = Cosigned By Initials Name KB Johny Saini RN LS MONTSE Leonard CNA LB Lora Burki, RN PRE-TREATMENT (last 8 hours) Hemodialysis Pre-Treatment - ThuDecember 19, 2020 Row Name 0942 Pre-Hemodialysis Assessment Patient Status Arrived -KB at 12/19/20 09 HD Pre-Treatment Hand-off Review of SBAR Completed Yes -KB at 12/19/20944 HD Pre-Treatment Report from Floor Nurse (name) Jarett Olmstead RN -KB at 12/19/20944 HBsAg Results Negative -KB at 12/19/20944 HBsAg Date Last Tested 11/26/20 -KB at 12/19/20944 HBsAb Results Susceptible (<10) -KB at 12/19/20944 HBsAb Date Last Tested 11/26/20 -KB at 12/19/20944 Treatment Status Pending Start -KB at 12/19/20944 Weight 92.1 kg (203 lb 0.7 oz) -KB at 12/19/20944 Weight Source Bed -KB at 12/19/20944 Correct Order/Script Yes -KB at 12/19/20944 Correct Patient? Yes -KB at 12/19/20944 Correct Site/Side? Yes -KB at 12/19/20944 What Procedure? HD -KB at 12/19/20944 [facility] Consent Verified Yes -KB at 12/19/20944 pH 7.4 -KB at 12/19/20944 Gross Bleach Negative Yes -KB at 12/19/20944 Gross Bleach Check Time 0940 -KB at 12/19/20944 Chlorine Negative Yes -KB at 12/19/20944 Chlorine Check Time 0940 -KB at 12/19/20944 Machine Temperature 37 C (98.6 F) -KB at 12/19/20944 Dialyzer F-180 -KB at 12/19/20944 Meter Conductivity 14 -KB at 12/19/20944 HD Machine Conductivity 13.8 -KB at 12/19/20944 Sodium Modeling NA -KB at 12/19/20944 Dialysate Na (mEq/L) 140 mEq/L -KB at 12/19/20944 Dialysate K (mEq/L) 2 mEq/L -KB at 12/19/20944 Dialysate CA (mEq/L) 2.5 mEq/L -KB at 12/19/20944 Dialysate HCO3 (mEq/L) 35 mEq/L -KB at 12/19/20944 Prime Ordered (mL) 150 mL -KB at 12/19/20944 Pre-Hemodialysis Comments iceboat -KB at 12/19/20944 Hemodialysis Catheter Triple Lumen Non-tunneled Right Internal jugular Hemodialysis Properties Placement Date: 12/13/20 -, 12/13/201416 Placement Time: 1413 -, 12/13/201416 Inserted by: Dr Holly Allen -, 12/13/20 Lot Number: [id number]. 12 Fr x 20 cm -, 12/13/201416 Access Type: Non-t unneled -, 12/13/201416 Orientation: Right -, 12/13/201416 Access Loca tion: Internal jugular -, 12/13/201416 Technique: Modified Seldinger;Anatom ical landmarks;Ultrasound Used -, 12/13/201416 Vessel Assessment (Ultrasoun d Only): Compressible -, 12/13/201416 Tunneled or Non-tunneled: Non-Tunnele d -, 12/13/201416 Estimated Blood Loss: Minimal -, 12/13/201416 Site Assessment WDL -KB at 12/19/20944 Catheter Packing Heparin -KB at 12/19/20944 Catheter Packing Interventions Unpacked -KB at 12/19/20944 Arterial Port Packing Volume (mL) 1.2 mL -KB at 12/19/20944 Venous Port Packing Volume (mL) 1.2 mL -KB at 12/19/20944 Lumen 1 Status Heparin locked;Disinfecting Cap -KB at 12/19/20944 Lumen 1 Patency Brisk blood return (3ml in 3 sec) -KB at 12/19/20944 Lumen 2 Status Heparin locked;Disinfecting Cap -KB at 12/19/20944 Lumen 2 Patency Brisk blood return (3ml in 3 sec) -KB at 12/19/20944 Lumen 3 Status Capped;Normal saline locked -KB at 12/19/20944 Dressing Type Antimicrobial;Sterile;Transparent -KB at 12/19/20944 Dressing Status Checked;Intact -KB at 12/19/20944 Next Dressing Change Due 12/22/20 -KB at 12/19/20944 Line Necessity Needed upon discharge for watermaster use. -KB at 12/19/20944 Hemodialysis Properties Placement Date: 12/13/20 -PP, 12/13/201416 Placement Time: 1413 -, 12/13/201416 Inserted by: Dr Holly Allen -PP, 12/13/20 Lot Number: [id number]. 12 Fr x 20 cm -PP, 12/13/201416 Orientation: Right -PP, 12/13/201416 Access Location: Internal jugular -, 12/13/201416 Allen hnique: Modified Seldinger;Anatomical landmarks;Ultrasound Used -, 12/13/20 1 417 Vessel Assessment (Ultrasound Only): Compressible -PP, 12/13/201416 Tunn eled or Non-tunneled: Non-Tunneled -PP, 12/13/201416 Estimated Blood Loss: Mi nimal -PP, 12/13/201416 Hemodialysis Machine Check HD Machine # [id number] -KB at 12/19/20944 HD Reverse Osmosis # 112 -KB at 12/19/20944 Alarms Verified Yes -KB at 12/19/20944 HD Dialyzer Lot # [id number] -KB at 12/19/20944 HD Tubing Lot # [id number] -KB at 12/19/20944 HD RO Machine Log Completed Yes -KB at 12/19/20944 HD Initiation Checklist All Connections Secured;Venous Parameters Set;Saline L ine Double Clamped;Arterial Parameters Set;Prime Given;Air Foam Detector Engaged -KB at 12/19/20944 User Chang (r) = Recorded By, (t) = Taken By, (c) = Cosigned By Initials Name PP Cynthia Ruiz, RN MITCH Saini RN TREATMENT (last 8 hours) Hemodialysis Treatment - ThuDecember 19, 2020 Row Name 1300 1255 1245 1230 1215 During Hemodialysis Assessment Blood Flow Rate (mL/min) 600 mL/min -KB at 12/19/20 1246 600 mL/min -KB at 12/19/20 1246 600 mL/min -KB at 12/19/20 1228 Dialysate Flow Rate (mL/min) 350 -KB at 12/19/20 1246 350 -KB at 12/19/20 1246 350 -KB at 12/19/20 1228 Arterial Pressure (mmHg) -140 mmHg -KB at 12/19/20 1246 -140 mmHg -KB at 12/19/20 1246 -140 mmHg -KB at 12/19/20 1228 Venous Pressure (mmHg) 70 -KB at 12/19/20 1246 70 -KB at 12/19/20 1246 70 -KB at 12/19/20 1228 TMP (mmHg) 70 -KB at 12/19/20 1246 70 -KB at 12/19/20 1246 70 -KB at 12/19/20 1228 Ultrafiltration Rate (mL/min) 860 mL/min -KB at 12/19/20 1246 860 mL/min -KB at 12/19/20 1246 860 mL/min -KB at 12/19/20 1228 UF Removed (mL) 2118 mL -KB at 12/19/20 1246 1889 mL -KB at 12/19/20 1246 1692 mL -KB at 12/19/20 1228 Blood Pump Running Yes -KB at 12/19/20 1246 Yes -KB at 12/19/20 1246 Yes -KB at 12/19/20 1228 Arteriovenous Lines Secure Yes -KB at 12/19/20 1246 Yes -KB at 12/19/20 1246 Yes -KB at 12/19/20 1228 Transducer Check Yes -KB at 12/19/20 1246 Yes -KB at 12/19/20 1246 Yes -KB at 12/19/20 1228 HD Access Check Yes -KB at 12/19/20 1246 Yes -KB at 12/19/20 1246 Yes -KB at 12/19/20 1228 Intra-Hemodialysis Comments tx completed -KB at 12/19/20 1309 resting even resperts -KB at 12/19/20 1246 resting even resperts -KB at 12/19/20 1246 resting even resperts -KB at 12/19/20 1228 Temp 37.1 C (98.8 F) -KB at 12/19/20 1309 Temp src Oral -KB at 12/19/20 1309 Pulse 80 -KB at 12/19/20 1309 77 -KB at 12/19/20 1309 94 -KB at 12/19/20 1246 93 -KB at 12/19/20 1246 94 -KB at 12/19/20 1228 Resp 18 -KB at 12/19/20 1309 18 -KB at 12/19/20 1309 18 -KB at 12/19/20 1246 18 -KB at 12/19/20 1246 18 -KB at 12/19/20 1228 BP 128/74 -KB at 12/19/20 1309 124/73 -KB at 12/19/20 1309 (!) 144/79 -KB at 12/19/20 1246 (!) 142/72 -KB at 12/19/20 1246 (!) 153/86 -KB at 12/19/20 1228 O2 Device None (Room air) -KB at 12/19/20 1309 None (Room air) -KB at 12/19/20 1309 None (Room air) -KB at 12/19/20 1309 None (Room air) -KB at 12/19/20 1246 None (Room air) -KB at 12/19/20 1228 Hemodialysis Catheter Triple Lumen Non-tunneled Right Internal jugular Hemodialysis Properties Placement Date: 12/13/20 -PP, 12/13/201416 Placement Time: 1413 -PP, 12/13/201416 Inserted by: Dr Holly Allen -, 12/13/20 141 Lot Number: [id number]. 12 Fr x 20 cm -PP, 12/13/201416 Access Type: Non-t unneled -PP, 12/13/201416 Orientation: Right -PP, 12/13/201416 Access Loca tion: Internal jugular -PP, 12/13/201416 Technique: Modified Seldinger;Anatom ical landmarks;Ultrasound Used -PP, 12/13/201416 Vessel Assessment (Ultrasoun d Only): Compressible -PP, 12/13/201416 Tunneled or Non-tunneled: Non-Tunnele d -PP, 12/13/201416 Estimated Blood Loss: Minimal -PP, 12/13/201416 Hemodialysis Properties Placement Date: 12/13/20 -PP, 12/13/201416 Placement Time: 1413 -PP, 12/13/201416 Inserted by: Dr Holly Allen -PP, 12/13/20 Lot Number: [id number]. 12 Fr x 20 cm -PP, 12/13/201416 Orientation: Right -PP, 12/13/201416 Access Location: Internal jugular -PP, 12/13/201416 Allen hnique: Modified Seldinger;Anatomical landmarks;Ultrasound Used -PP, 12/13/20 1 417 Vessel Assessment (Ultrasound Only): Compressible -PP, 12/13/201416 Tunn eled or Non-tunneled: Non-Tunneled -PP, 12/13/201416 Estimated Blood Loss: Mi nimal -PP, 12/13/201416 Row Name 1200 1145 1130 1115 1100 During Hemodialysis Assessment Blood Flow Rate (mL/min) 600 mL/min -KB at 12/19/20 1228 600 mL/min -KB at 12/19/20 1228 600 mL/min -KB at 12/19/20 1228 600 mL/min -KB at 12/19/20 1124 600 mL/min -KB at 12/19/20 1124 Dialysate Flow Rate (mL/min) 350 -KB at 12/19/20 1228 350 -KB at 12/19/20 1228 350 -KB at 12/19/20 1228 350 -KB at 12/19/20 1228 350 -KB at 12/19/20 1124 Arterial Pressure (mmHg) -140 mmHg -KB at 12/19/20 1228 -140 mmHg -KB at 12/19/20 1228 -140 mmHg -KB at 12/19/20 1228 -190 mmHg -KB at 12/19/20 1124 -150 mmHg -KB at 12/19/20 1124 Venous Pressure (mmHg) 60 -KB at 12/19/20 1228 60 -KB at 12/19/20 1228 60 -KB at 12/19/20 1228 70 -KB at 12/19/20 1124 90 -KB at 12/19/20 1124 TMP (mmHg) 50 -KB at 12/19/20 1228 50 -KB at 12/19/20 1228 50 -KB at 12/19/20 1228 70 -KB at 12/19/20 1124 70 -KB at 12/19/20 1124 Ultrafiltration Rate (mL/min) 860 mL/min -KB at 12/19/20 1228 860 mL/min -KB at 12/19/20 1228 860 mL/min -KB at 12/19/20 1228 860 mL/min -KB at 12/19/20 1124 850 mL/min -KB at 12/19/20 1124 UF Removed (mL) 1348 mL -KB at 12/19/20 1228 1198 mL -KB at 12/19/20 1228 1069 mL -KB at 12/19/20 1228 806 mL -KB at 12/19/20 1124 599 mL -KB at 12/19/20 1124 Blood Pump Running Yes -KB at 12/19/20 1228 Yes -KB at 12/19/20 1228 Yes -KB at 12/19/20 1228 Yes -KB at 12/19/20 1124 Yes -KB at 12/19/20 1124 Arteriovenous Lines Secure Yes -KB at 12/19/20 1228 Yes -KB at 12/19/20 1228 Yes -KB at 12/19/20 1228 Yes -KB at 12/19/20 1124 Yes -KB at 12/19/20 1124 Transducer Check Yes -KB at 12/19/20 1228 Yes -KB at 12/19/20 1228 Yes -KB at 12/19/20 1228 Yes -KB at 12/19/20 1124 Yes -KB at 12/19/20 1124 HD Access Check Yes -KB at 12/19/20 1228 Yes -KB at 12/19/20 1228 Yes -KB at 12/19/20 1228 Yes -KB at 12/19/20 1124 Yes -KB at 12/19/20 1124 Intra-Hemodialysis Comments resting even resperts -KB at 12/19/20 1228 resting even resperts -KB at 12/19/20 1228 resting even resperts -KB at 12/19/20 1228 resting even resperts -KB at 12/19/20 1124 resting even resperts -KB at 12/19/20 1124 Pulse 94 -KB at 12/19/20 1228 98 -KB at 12/19/20 1228 96 -KB at 12/19/20 1228 100 -KB at 12/19/20 1124 98 -KB at 12/19/20 1124 Resp 18 -KB at 12/19/20 1228 18 -KB at 12/19/20 1228 18 -KB at 12/19/20 1228 18 -KB at 12/19/20 1124 18 -KB at 12/19/20 1124 BP (!) 140/79 -KB at 12/19/20 1228 133/77 -KB at 12/19/20 1228 136/79 -KB at 12/19/20 1228 128/76 -KB at 12/19/20 1124 126/68 -KB at 12/19/20 1124 O2 Device None (Room air) -KB at 12/19/20 1228 None (Room air) -KB at 12/19/20 1228 None (Room air) -KB at 12/19/20 1228 None (Room air) -KB at 12/19/20 1124 None (Room air) -KB at 12/19/20 1124 O2 Flow Rate (L/min) -KB at 12/19/20 1228 -KB at 12/19/20 1124 Hemodialysis Catheter Triple Lumen Non-tunneled Right Internal jugular Hemodialysis Properties Placement Date: 12/13/20 -PP, 12/13/201416 Placement Time: 1413 -, 12/13/201416 Inserted by: Dr Holly Allen -, 12/13/20 141 Lot Number: [id number]. 12 Fr x 20 cm -, 12/13/201416 Access Type: Non-t unneled -, 12/13/201416 Orientation: Right -, 12/13/201416 Access Loca tion: Internal jugular -PP, 12/13/201416 Technique: Modified Seldinger;Anatom ical landmarks;Ultrasound Used -PP, 12/13/201416 Vessel Assessment (Ultrasoun d Only): Compressible -PP, 12/13/201416 Tunneled or Non-tunneled: Non-Tunnele d -PP, 12/13/201416 Estimated Blood Loss: Minimal -PP, 12/13/201416 Hemodialysis Properties Placement Date: 12/13/20 -PP, 12/13/201416 Placement Time: 1413 -PP, 12/13/201416 Inserted by: Dr Holly Allen -PP, 12/13/20 Lot Number: [id number]. 12 Fr x 20 cm -PP, 12/13/201416 Orientation: Right -PP, 12/13/201416 Access Location: Internal jugular -PP, 12/13/201416 Allen hnique: Modified Seldinger;Anatomical landmarks;Ultrasound Used -PP, 12/13/20 1 417 Vessel Assessment (Ultrasound Only): Compressible -PP, 12/13/201416 Tunn eled or Non-tunneled: Non-Tunneled -PP, 12/13/201416 Estimated Blood Loss: Mi nimal -PP, 12/13/201416 Row Name 1045 1030 1015 1000 0954 During Hemodialysis Assessment Treatment Start Time 0954 -KB at 12/19/20 1007 Blood Flow Rate (mL/min) 600 mL/min -KB at 12/19/20 1124 600 mL/min -KB at 12/19/20 1124 600 mL/min -KB at 12/19/20 1124 600 mL/min -KB at 12/19/20 1007 600 mL/min -KB at 12/19/20 1007 Dialysate Flow Rate (mL/min) 400 -KB at 12/19/20 1124 400 -KB at 12/19/20 1124 400 -KB at 12/19/20 1124 400 -KB at 12/19/20 1007 400 -KB at 12/19/20 1007 Arterial Pressure (mmHg) -150 mmHg -KB at 12/19/20 1124 -130 mmHg -KB at 12/19/20 1124 -130 mmHg -KB at 12/19/20 1124 -110 mmHg -KB at 12/19/20 1007 -100 mmHg -KB at 12/19/20 1007 Venous Pressure (mmHg) 90 -KB at 12/19/20 1124 80 -KB at 12/19/20 1124 80 -KB at 12/19/20 1124 70 -KB at 12/19/20 1007 70 -KB at 12/19/20 1007 TMP (mmHg) 70 -KB at 12/19/20 1124 60 -KB at 12/19/20 1124 60 -KB at 12/19/20 1124 70 -KB at 12/19/20 1007 60 -KB at 12/19/20 1007 Ultrafiltration Rate (mL/min) 850 mL/min -KB at 12/19/20 1124 440 mL/min -KB at 12/19/20 1124 440 mL/min -KB at 12/19/20 1124 440 mL/min -KB at 12/19/20 1124 440 mL/min -KB at 12/19/20 1007 UF Removed (mL) 402 mL -KB at 12/19/20 1124 240 mL -KB at 12/19/20 1124 122 mL -KB at 12/19/20 1124 47 mL -KB at 12/19/20 1007 0 mL -KB at 12/19/20 1007 Blood Pump Running Yes -KB at 12/19/20 1124 Yes -KB at 12/19/20 1124 Yes -KB at 12/19/20 1124 Yes -KB at 12/19/20 1007 Yes -KB at 12/19/20 1007 Arteriovenous Lines Secure Yes -KB at 12/19/20 1124 Yes -KB at 12/19/20 1124 Yes -KB at 12/19/20 1124 Yes -KB at 12/19/20 1007 Yes -KB at 12/19/20 1007 Transducer Check Yes -KB at 12/19/20 1124 Yes -KB at 12/19/20 1124 Yes -KB at 12/19/20 1124 Yes -KB at 12/19/20 1007 Yes -KB at 12/19/20 1007 HD Access Check Yes -KB at 12/19/20 1124 Yes -KB at 12/19/20 1124 Yes -KB at 12/19/20 1124 Yes -KB at 12/19/20 1007 Yes -KB at 12/19/20 1007 Intra-Hemodialysis Comments resting even resperts -KB at 12/19/20 1124 resting even resperts -KB at 12/19/20 1124 resting even resperts -KB at 12/19/20 1124 resting even resperts -KB at 12/19/20 1007 tx innitiated -KB at 12/19/20 1007 Pulse 100 -KB at 12/19/20 1124 (!) 102 -LB (r) KB (t) at 12/19/20 1045 100 -LB (r) KB (t) at 12/19/20 1045 101 -KB at 12/19/20 1007 94 -KB at 12/19/20 1007 Resp 18 -KB at 12/19/20 1124 18 -LB (r) KB (t) at 12/19/20 1045 18 -LB (r) KB (t) at 12/19/20 1045 18 -KB at 12/19/20 1007 18 -KB at 12/19/20 1007 BP 137/75 -KB at 12/19/20 1124 129/72 -LB (r) KB (t) at 12/19/20 1045 131/73 -LB (r) KB (t) at 12/19/20 1045 135/76 -KB at 12/19/20 1007 (!) 140/82 -KB at 12/19/20 1007 O2 Device None (Room air) -KB at 12/19/20 1124 None (Room air) -LB (r) KB (t) at 12/19/20 1045 None (Room air) -LB (r) KB (t) at 12/19/20 1045 None (Room air) -KB at 12/19/20 1007 None (Room air) -KB at 12/19/20 1007 Hemodialysis Catheter Triple Lumen Non-tunneled Right Internal jugular Hemodialysis Properties Placement Date: 12/13/20 -PP, 12/13/201416 Placement Time: 1413 -PP, 12/13/201416 Inserted by: Dr Holly Allen -, 12/13/20 Lot Number: [id number]. 12 Fr x 20 cm -, 12/13/201416 Access Type: Non-t unneled -PP, 12/13/201416 Orientation: Right -PP, 12/13/201416 Access Loca tion: Internal jugular -PP, 12/13/201416 Technique: Modified Seldinger;Anatom ical landmarks;Ultrasound Used -PP, 12/13/201416 Vessel Assessment (Ultrasoun d Only): Compressible -PP, 12/13/201416 Tunneled or Non-tunneled: Non-Tunnele d -PP, 12/13/201416 Estimated Blood Loss: Minimal -PP, 12/13/201416 Hemodialysis Properties Placement Date: 12/13/20 -PP, 12/13/201416 Placement Time: 1413 -PP, 12/13/201416 Inserted by: Dr Holly Allen -PP, 12/13/20 Lot Number: [id number]. 12 Fr x 20 cm -PP, 12/13/201416 Orientation: Right -PP, 12/13/201416 Access Location: Internal jugular -PP, 12/13/201416 Allen hnique: Modified Seldinger;Anatomical landmarks;Ultrasound Used -PP, 12/13/20 1 417 Vessel Assessment (Ultrasound Only): Compressible -PP, 12/13/201416 Tunn eled or Non-tunneled: Non-Tunneled -PP, 12/13/201416 Estimated Blood Loss: Mi nimal -PP, 12/13/201416 Row Name 0942 During Hemodialysis Assessment Intra-Hemodialysis Comments pre tx -KB at 12/19/20 0948 Temp 37.3 C (99.1 F) -KB at 12/19/20 0948 Temp src Oral -KB at 12/19/20 0948 Pulse 97 -KB at 12/19/20 1007 Resp 18 -KB at 12/19/20 0948 BP (!) 141/82 -KB at 12/19/20 0948 O2 Device None (Room air) -KB at 12/19/20 0948 Hemodialysis Catheter Triple Lumen Non-tunneled Right Internal jugular Hemodialysis Properties Placement Date: 12/13/20 -PP, 12/13/201416 Placement Time: 1413 -PP, 12/13/201416 Inserted by: Dr Holly Allen -PP, 12/13/20 Lot Number: [id number]. 12 Fr x 20 cm -PP, 12/13/201416 Access Type: Non-t unneled -PP, 12/13/201416 Orientation: Right -PP, 12/13/201416 Access Loca tion: Internal jugular -PP, 12/13/201416 Technique: Modified Ellen;Anatom ical landmarks;Ultrasound Used -PP, 12/13/201416 Vessel Assessment (Ultrasoun d Only): Compressible -PP, 12/13/201416 Tunneled or Non-tunneled: Non-Tunnele d -PP, 12/13/201416 Estimated Blood Loss: Minimal -PP, 12/13/201416 Hemodialysis Properties Placement Date: 12/13/20 -PP, 12/13/201416 Placement Time: 1413 -PP, 12/13/201416 Inserted by: Dr Holly Allen -PP, 12/13/20 Lot Number: [id number]. 12 Fr x 20 cm -PP, 12/13/201416 Orientation: Right -PP, 12/13/201416 Access Location: Internal jugular -PP, 12/13/201416 Allen hnique: Modified Seldinger;Anatomical landmarks;Ultrasound Used -PP, 12/13/20 1 417 Vessel Assessment (Ultrasound Only): Compressible -PP, 12/13/201416 Tunn eled or Non-tunneled: Non-Tunneled -PP, 12/13/201416 Estimated Blood Loss: Mi nimal -PP, 12/13/201416 User Chang (r) = Recorded By, (t) = Taken By, (c) = Cosigned By Initials Name Cynthia Ruiz RN KB MONTSE Ramos RN POST-TREATMENT (last 8 hours) Hemodialysis Post-Treatment - ThuDecember 19, 2020 Row Name 1300 Post-Hemodialysis Assessment Rinseback Volume (mL) 150 mL -KB at 12/19/20 1312 Total Liters Processed (L/min) 61.8 L/min -KB at 12/19/20 1312 Dialyzer Clearance Lightly streaked -KB at 12/19/20 1312 Duration of Treatment (minutes) 180 minutes -KB at 12/19/20 1312 Hemodialysis Intake (mL) 300 mL -KB at 12/19/20 1312 Hemodialysis Output (mL) 2300 mL -KB at 12/19/20 131 Patient Response to Treatment tolerated well -KB at 12/19/20 1312 Post-Hemodialysis Comments blood returned, cvc packed with heparin -KB at 12/19/20 131 Weight 90.1 kg (198 lb 10.2 oz) -KB at 12/19/20 1312 HD Post-Treatment Hand-off Report Completed Yes -KB at 12/19/20 1312 Post Treatment Reported To Jarett Olmstead RN -KB at 12/19/20 131 Hemodialysis Catheter Triple Lumen Non-tunneled Right Internal jugular Hemodialysis Properties Placement Date: 12/13/20 -PP, 12/13/201416 Placement Time: 1413 -PP, 12/13/201416 Inserted by: Dr Holly Allen -PP, 12/13/20 Lot Number: [id number]. 12 Fr x 20 cm -PP, 12/13/201416 Access Type: Non-t unneled -PP, 12/13/201416 Orientation: Right -PP, 12/13/201416 Access Loca tion: Internal jugular -PP, 12/13/201416 Technique: Modified Seldinger;Anatom ical landmarks;Ultrasound Used -PP, 12/13/201416 Vessel Assessment (Ultrasoun d Only): Compressible -PP, 12/13/201416 Tunneled or Non-tunneled: Non-Tunnele d -PP, 12/13/201416 Estimated Blood Loss: Minimal -PP, 12/13/201416 Site Assessment WDL -KB at 12/19/20 131 Catheter Packing Heparin -KB at 12/19/20 131 Catheter Packing Interventions Packed -KB at 12/19/20 131 Arterial Port Packing Volume (mL) 1.2 mL -KB at 12/19/20 131 Venous Port Packing Volume (mL) 1.2 mL -KB at 12/19/20 131 Lumen 1 Status Heparin locked;Disinfecting Cap -KB at 12/19/20 131 Lumen 1 Patency No blood return -KB at 12/19/20 131 Lumen 2 Status Heparin locked -KB at 12/19/20 131 Lumen 2 Patency No blood return -KB at 12/19/20 131 Lumen 3 Status Capped;Normal saline locked -KB at 12/19/20 131 Dressing Type Antimicrobial;Sterile;Transparent -KB at 12/19/201311 Dressing Status Checked;Intact -KB at 12/19/201311 Next Dressing Change Due 12/22/20 -KB at 12/19/201311 Line Necessity Needed upon discharge for fci use. -KB at 12/19/20 1312 Hemodialysis Properties Placement Date: 12/13/20 -PP, 12/13/201416 Placement Time: 1413 -PP, 12/13/201416 Inserted by: Dr Holly Allen -, 12/13/20 Lot Number: [id number]. 12 Fr x 20 cm -PP, 12/13/201416 Orientation: Right -PP, 12/13/201416 Access Location: Internal jugular -PP, 12/13/201416 Allen hnique: Modified Seldinger;Anatomical landmarks;Ultrasound Used -PP, 12/13/20 1 417 Vessel Assessment (Ultrasound Only): Compressible -PP, 12/13/201416 Tunn eled or Non-tunneled: Non-Tunneled -PP, 12/13/201416 Estimated Blood Loss: Mi nimal -PP, 12/13/201416 User Chang (r) = Recorded By, (t) = Taken By, (c) = Cosigned By Initials Name Cynthia Ruiz, MONTSE Saini, MONTSE HD ASSESSMENT (last 8 hours) Hemodialysis Assessment - ThuDecember 19, 2020 Row Name 1300 0942 Nursing Assessment Checks Hepatitis Status Verified Yes -KB at 12/19/20 1310 Yes -KB at 12/19/20945 [facility] Consent Verified Yes -KB at 12/19/20 1310 Neurological Neuro (WDL) WDL -KB at 12/19/20 1310 WDL -KB at 12/19/20945 Level of Consciousness 0 -KB at 12/19/20 1310 0 -KB at 12/19/20945 Orientation Level Oriented to person;Oriented to place;Oriented to time;[place] ed to situation -KB at 12/19/20 1310 Oriented to person;Oriented to place;Oriented to time;Jaspal ented to situation -KB at 12/19/20 09 Cognition No deficit noted -KB at 12/19/20 1310 No deficit noted -KB at 12/19/2046 Speech Clear -KB at 12/19/20 1310 Clear -KB at 12/19/2046 HEENT HEENT (WDL) X -KB at 12/19/20 1310 X -KB at 12/19/2046 R Eye Impaired vision;Requires visual aid -KB at 12/19/20 1310 Impaired vision;Requires visual aid -KB at 12/19/20945 L Eye Impaired vision;Requires visual aid -KB at 12/19/20 131 Impaired vision;Requires visual aid -KB at 12/19/20 09 Teeth Missing teeth;Poor dental hygiene -KB at 12/19/20 1310 Missing teeth;Poor dental hygiene -KB at 12/19/20 0946 Respiratory Respiratory (WDL) WDL -KB at 12/19/20 1310 WDL -KB at 12/19/20 0946 Head of Bed Elevation Self regulated -KB at 12/19/20 1310 Self regulated -KB at 12/19/20 0946 Respiratory Pattern Normal -KB at 12/19/20 1310 Normal -KB at 12/19/20 0946 Chest Assessment Chest expansion symmetrical -KB at 12/19/20 1310 Chest expansion symmetrical -KB at 12/19/20 0946 Bilateral Breath Sounds Clear;Equal -KB at 12/19/20 1310 Clear;Equal -KB at 12/19/20 0946 R Breath Sounds Diminished -KB at 12/19/20 1310 Cough None -KB at 12/19/20 1310 None -KB at 12/19/20 0946 Peripheral Vascular Peripheral Vascular (WDL) X -KB at 12/19/20 1310 X -KB at 12/19/20 0946 Capillary Refill Less than/equal to 3 seconds (All extremities) -KB at 12/19/20 1310 Less than/equal to 3 seconds (All extremities) -KB at 12/19/20 0946 Pulses R radial;L radial;R dorsalis pedis;L dorsalis pedis -KB at 12/19/20 1310 R radial;L radial;R dorsalis pedis;L dorsalis pedis -KB at 12/19/20 09 R Radial Pulse +2;Palpable -KB at 12/19/20 1310 +2;Palpable -KB at 12/19/20945 L Radial Pulse +2;Palpable -KB at 12/19/20 1310 +2;Palpable -KB at 12/19/20 09 R Dorsalis Pedis Pulse +2;Palpable -KB at 12/19/20 1310 +2;Palpable -KB at 12/19/20 09 L Dorsalis Pedis Pulse +2;Palpable -KB at 12/19/20 1310 +2;Palpable -KB at 12/19/20 0946 Edema Right lower extremity;Left lower extremity -KB at 12/19/20 1310 Right lower extremity;Left lower extremity -KB at 12/19/20 0946 RLE Edema Trace -KB at 12/19/20 1310 Trace -KB at 12/19/20 0946 LLE Edema Trace -KB at 12/19/20 1310 Trace -KB at 12/19/20 0946 Cardiac Cardiac (WDL) WDL -KB at 12/19/20 1310 WDL -KB at 12/19/20 0946 Cardiac Regularity Regular -KB at 12/19/20 1310 Regular -KB at 12/19/20 0946 Heart Sounds S1, S2 -KB at 12/19/20 1310 S1, S2 -KB at 12/19/20 0946 Jugular Venous Distention (JVD) No -KB at 12/19/20 1310 No -KB at 12/19/20 0946 Video Game Maker On No -KB at 12/19/20 1310 No -KB at 12/19/20 0946 Skin Assessment Integumentary (WDL) X -KB at 12/19/20 1310 X -KB at 12/19/20 0946 Generalized Skin Color Flushed -KB at 12/19/20 1310 Generalized Skin Moisture Dryness -KB at 12/19/20 1310 Dryness -KB at 12/19/20 0946 At Risk Skin Condition/Concern Significant/Severe Bruising;Eschar (scab) -KB at 12/19/20 1310 Significant/Severe Bruising;Eschar (scab) -KB at 12/19/20 0946 1. At Risk Skin Condition/Concern Location Knee -KB at 12/19/20 1310 Knee -KB at 12/19/20 0946 Orientation Left -KB at 12/19/20 1310 Left -KB at 12/19/20 0946 Intervention Continue to Monitor -KB at 12/19/20 1310 Continue to Monitor -KB at 12/19/20 0946 Additional At Risk Skin Condition/Concern Identified Yes -KB at 12/19/20 1310 Yes -KB at 12/19/20 0946 2. At Risk Skin Condition/Concern At Risk Skin Condition/Concern Other (Comment) -KB at 12/19/20 1310 Other (Comment) -KB at 12/19/20 0946 Location Back -KB at 12/19/20 1310 Back -KB at 12/19/20 0946 Orientation Posterior;Left -KB at 12/19/20 1310 Posterior;Left -KB at 12/19/20 0946 Intervention Continue to Monitor;Prophylactic Dressing Placed (i.e. Mepliex) -KB at 12/19/20 1310 Continue to Monitor;Prophylactic Dressing Placed (i.e. Me pliex) -KB at 12/19/20 0946 Gastrointestinal Gastrointestinal (WDL) X -KB at 12/19/20 1310 X -KB at 12/19/20 0946 Abdomen Inspection Soft;Rounded -KB at 12/19/20 1310 Soft;Rounded -KB at 12/19/20 0946 Bowel Sounds (All Quadrants) Audible -KB at 12/19/20 1310 Audible -KB at 12/19/20 0946 Last BM Date 12/18/20 -KB at 12/19/20 1310 12/18/20 -KB at 12/19/20 0946 Passing Flatus Yes -KB at 12/19/20 1310 Yes -KB at 12/19/20 0946 Pain Assessment Patient's Stated Pain Goal 0 -KB at 12/19/20 1310 0 -KB at 12/19/20 0946 Pain Assessment Patient sleeping -KB at 12/19/20 1310 Patient sleeping -KB at 12/19/20 0946 Pain Score 0 -KB at 12/19/20 1310 0 -KB at 12/19/20 0946 User Chang (r) = Recorded By, (t) = Taken By, (c) = Cosigned By Initials Name KB Johny Saini RN * Debo Ingram RN - 12/18/2020 2:03 PM CDT Dialysis Treatment Time Medications Dose Volume Route Initials 1400 CVC - Pack with Heparin 2400 units 1.2 ml per port intracatheter ES Education Able to Educate Patient Yes Patient Procedural Explain Verbalizes Understanding Patient Information Patient Name Sommer Callahan Legal Sex Male Patient tolerated treatment: tolerated wel Treatment Time: 3 hours UF Removal: 0 Estimated Dry Weight: TBD Pre Weight: 93kg Pre Weight Source: bed Post Weight: 93kg Post Weight Source: bed Hepatitis Verified by: YANNICK WILLARD Treatment Start Time: 1050 Treatment End Time:[id number] Most Recent Result within the last 7 days Lab Units 12/18/20 0324 SODIUM MEQ/L 134 POTASSIUM MEQ/L 4.3 CHLORIDE MEQ/L 101 CALCIUM mg/dL 7.8* BLOOD UREA NITROGEN mg/dL 40* Dialysis Orders (36h ago, onward) Start Ordered 12/18/20 0907 Hemodialysis inpatient Once Question Answer Comment K+ KPP (Potassium per Protocol) Ca++ 2.5 mg Bicarb 35 mEq / liter Na+ 140 mEq / liter Na+ Modeling: No Dialyzer F180 Dialysate Temperature (C) 37 BFR-As tolerated to a maximum of: Best Flow DFR 600 mL/min Duration of Treatment 3 Hours Dry weight (kg) or fluid removal (L) 0 UF Access Site AVF 12/18/20 0907 PRE/POST HEMODIALYSIS VITALS (last 8 hours) Vitals - ThuDecember 18, 2020 Row Name 1400 1351 1345 1330 1315 Vital Signs Temp 36.8 C (98.2 F) -ES at 12/18/20 1401 Temp src Oral -ES at 12/18/20 1401 Pulse 88 -ES at 12/18/20 1401 86 -ES at 12/18/20 1401 90 -ES at 12/18/20 1346 88 -ES at 12/18/20 1332 88 -ES at 12/18/20 1318 SpO2 94 % -ES at 12/18/20 1401 Resp 16 -ES at 12/18/20 1401 16 -ES at 12/18/20 1401 16 -ES at 12/18/20 1346 16 -ES at 12/18/20 1332 16 -ES at 12/18/20 1318 BP (!) 150/91 -ES at 12/18/20 1401 (!) 160/93 -ES at 12/18/20 1401 (!) 161/87 -ES at 12/18/20 1346 (!) 163/89 -ES at 12/18/20 1332 (!) 154/86 -ES at 12/18/20 1318 Weight 93 kg (205 lb 0.4 oz) -ES at 12/18/20 1403 Row Name 1300 1245 1230 1215 1200 Vital Signs Pulse 89 -ES at 12/18/20 1302 87 -ES at 12/18/20 1247 86 -ES at 12/18/20 1247 85 -ES at 12/18/20 1216 88 -ES at 12/18/20 1205 Resp 16 -ES at 12/18/20 1302 16 -ES at 12/18/20 1247 16 -ES at 12/18/20 1247 16 -ES at 12/18/20 1216 16 -ES at 12/18/20 1205 BP (!) 146/85 -ES at 12/18/20 1302 (!) 146/97 -ES at 12/18/20 1247 (!) 152/84 -ES at 12/18/20 1247 (!) 151/85 -ES at 12/18/20 1216 (!) 143/85 -ES at 12/18/20 1205 Row Name 1145 1130 1115 1100 1050 Vital Signs Pulse 88 -ES at 12/18/20 1205 88 -ES at 12/18/20 1134 88 -ES at 12/18/20 1119 85 -ES at 12/18/20 1119 87 -ES at 12/18/20 1052 Resp 16 -ES at 12/18/20 1205 16 -ES at 12/18/20 1134 16 -ES at 12/18/20 1119 18 -ES at 12/18/20 1119 16 -ES at 12/18/20 1052 BP (!) 140/85 -ES at 12/18/20 1205 (!) 145/84 -ES at 12/18/20 1134 (!) 142/85 -ES at 12/18/20 1119 (!) 145/86 -ES at 12/18/20 1119 (!) 156/88 -ES at 12/18/20 1052 Row Name 1016 0708 Vital Signs Temp 36.7 C (98.1 F) -ES at 12/18/20 1036 36.6 C (97.9 F) -AH at 12/18/20 0709 Temp src Oral -ES at 12/18/20 1036 Oral -AH at 12/18/20 0709 Pulse 82 -ES at 12/18/20 1036 83 -AH at 12/18/20 0709 SpO2 98 % -ES at 12/18/20 1036 93 % -AH at 12/18/20 0709 Resp 16 -ES at 12/18/20 1036 16 -AH at 12/18/20 0709 BP (!) 142/91 -ES at 12/18/20 1036 (!) 140/83 -AH at 12/18/20 0709 BP Location Left arm -AH at 12/18/20 0709 Patient position Supine -AH at 12/18/20 0709 Weight 93 kg (205 lb 0.4 oz) -ES at 12/18/20 1019 User Chang (r) = Recorded By, (t) = Taken By, (c) = Cosigned By Initials Name JANINE Conklin, MONTSE PRE-TREATMENT (last 8 hours) Hemodialysis Pre-Treatment - ThuDecember 18, 2020 Row Name 1016 Pre-Hemodialysis Assessment Patient Status Arrived -ES at 12/18/20 1019 HD Pre-Treatment Hand-off Review of SBAR Completed Yes -ES at 12/18/20 1019 HD Pre-Treatment Report from Floor Nurse (name) Jarett Olmstead RN -ES at 12/18/20 1019 HBsAg Results Negative -ES at 12/18/20 1019 HBsAg Date Last Tested 11/26/20 -ES at 12/18/20 1019 HBsAb Results Susceptible (<10) -ES at 12/18/20 1019 HBsAb Date Last Tested 11/26/20 -ES at 12/18/20 1019 Treatment Status Pending Start -ES at 12/18/20 1019 Weight 93 kg (205 lb 0.4 oz) -ES at 12/18/20 1019 Weight Source Bed -ES at 12/18/20 1019 Correct Order/Script Yes -ES at 12/18/20 1019 Correct Patient? Yes -ES at 12/18/20 1019 Correct Site/Side? Yes -ES at 12/18/20 1019 What Procedure? HD -ES at 12/18/20 1019 [facility] Consent Verified Yes -ES at 12/18/20 1019 pH 7.4 -ES at 12/18/20 1019 Gross Bleach Negative Yes -ES at 12/18/20 1019 Gross Bleach Check Time 1015 -ES at 12/18/20 1019 Chlorine Negative Yes -ES at 12/18/20 1019 Chlorine Check Time 1015 -ES at 12/18/20 1019 Machine Temperature 37 C (98.6 F) -ES at 12/18/20 1019 Dialyzer F-180 -ES at 12/18/20 1019 Meter Conductivity 14 -ES at 12/18/20 1019 HD Machine Conductivity 13.8 -ES at 12/18/20 1019 Sodium Modeling NA -ES at 12/18/20 1019 Dialysate Na (mEq/L) 140 mEq/L -ES at 12/18/20 1019 Dialysate K (mEq/L) 3 mEq/L -ES at 12/18/20 1019 Dialysate CA (mEq/L) 2.5 mEq/L -ES at 12/18/20 1019 Dialysate HCO3 (mEq/L) 35 mEq/L -ES at 12/18/20 1019 Prime Ordered (mL) 150 mL -ES at 12/18/20 1019 Pre-Hemodialysis Comments iceboat -ES at 12/18/20 1019 Hemodialysis Catheter Triple Lumen Non-tunneled Right Internal jugular Hemodialysis Properties Placement Date: 12/13/20 -, 12/13/201416 Placement Time: 1413 -, 12/13/201416 Inserted by: Dr Holly Allen -, 12/13/20 141 Lot Number: [id number]. 12 Fr x 20 cm -, 12/13/201416 Access Type: Non-t unneled -, 12/13/201416 Orientation: Right -, 12/13/201416 Access Loca tion: Internal jugular -, 12/13/201416 Technique: Modified Seldinger;Anatom ical landmarks;Ultrasound Used -, 12/13/201416 Vessel Assessment (Ultrasoun d Only): Compressible -, 12/13/201416 Tunneled or Non-tunneled: Non-Tunnele d -PP, 12/13/201416 Estimated Blood Loss: Minimal -, 12/13/201416 Site Assessment WDL -ES at 12/18/20 1019 Catheter Packing Heparin -ES at 12/18/20 1019 Catheter Packing Interventions Unpacked;Flushed -ES at 12/18/20 1019 Arterial Port Packing Volume (mL) 1.2 mL -ES at 12/18/20 1019 Venous Port Packing Volume (mL) 1.2 mL -ES at 12/18/20 101 Lumen 1 Status Heparin locked;Disinfecting Cap -ES at 12/18/20 101 Lumen 1 Patency Brisk blood return (3ml in 3 sec);Flushes without resistance -ES at 12/18/20 101 Lumen 2 Status Heparin locked;Disinfecting Cap -ES at 12/18/20 101 Lumen 2 Patency Brisk blood return (3ml in 3 sec);Flushes without resistance -ES at 12/18/20 101 Dressing Type Antimicrobial;Sterile;Transparent -ES at 12/18/201018 Dressing Status Checked;Intact -ES at 12/18/20 101 Next Dressing Change Due 12/22/20 -ES at 12/18/20 1019 Hemodialysis Properties Placement Date: 12/13/20 -, 12/13/201416 Placement Time: 1413 -, 12/13/201416 Inserted by: Dr Holly Allen -, 12/13/20 141 Lot Number: [id number]. 12 Fr x 20 cm -, 12/13/201416 Orientation: Right -, 12/13/201416 Access Location: Internal jugular -, 12/13/201416 Allen hnique: Modified Seldinger;Anatomical landmarks;Ultrasound Used -, 12/13/20 1 417 Vessel Assessment (Ultrasound Only): Compressible -, 12/13/201416 Tunn eled or Non-tunneled: Non-Tunneled -, 12/13/201416 Estimated Blood Loss: Mi nimal -PP, 12/13/201416 Hemodialysis Machine Check HD Machine # [id number] -ES at 12/18/20 1019 HD Reverse Osmosis # 107 -ES at 12/18/20 1019 Alarms Verified Yes -ES at 12/18/20 101 HD Dialyzer Lot # [id number] -ES at 12/18/20 101 HD Tubing Lot # [id number] -ES at 12/18/20 101 HD RO Machine Log Completed Yes -ES at 12/18/20 101 HD Initiation Checklist All Connections Secured;Venous Parameters Set;Saline L ine Double Clamped;Arterial Parameters Set;Prime Given;Air Foam Detector Engaged -ES at 12/18/20 101 User Chang (r) = Recorded By, (t) = Taken By, (c) = Cosigned By Initials Name PP Cynthia Ruiz, MONTSE ES Debo Ingram RN TREATMENT (last 8 hours) Hemodialysis Treatment - ThuDecember 18, 2020 Row Name 1400 1351 1345 1330 1315 During Hemodialysis Assessment Treatment Stop Time 1351 -ES at 12/18/20 1401 Blood Flow Rate (mL/min) 600 mL/min -ES at 12/18/20 1401 600 mL/min -ES at 12/18/20 1346 600 mL/min -ES at 12/18/20 1332 600 mL/min -ES at 12/18/20 1318 Dialysate Flow Rate (mL/min) 300 -ES at 12/18/20 1401 300 -ES at 12/18/20 1346 300 -ES at 12/18/20 1332 300 -ES at 12/18/20 1318 Arterial Pressure (mmHg) -110 mmHg -ES at 12/18/20 1401 -110 mmHg -ES at 12/18/20 1346 -110 mmHg -ES at 12/18/20 1332 -110 mmHg -ES at 12/18/20 1318 Venous Pressure (mmHg) 110 -ES at 12/18/20 1401 110 -ES at 12/18/20 1346 110 -ES at 12/18/20 1332 110 -ES at 12/18/20 1318 TMP (mmHg) 70 -ES at 12/18/20 1401 70 -ES at 12/18/20 1346 70 -ES at 12/18/20 1332 70 -ES at 12/18/20 1318 Ultrafiltration Rate (mL/min) 100 mL/min -ES at 12/18/20 1401 100 mL/min -ES at 12/18/20 1346 100 mL/min -ES at 12/18/20 1332 100 mL/min -ES at 12/18/20 1318 UF Removed (mL) 300 mL -ES at 12/18/20 1401 288 mL -ES at 12/18/20 1346 265 mL -ES at 12/18/20 1332 241 mL -ES at 12/18/20 1318 Blood Pump Running Yes -ES at 12/18/20 1401 Yes -ES at 12/18/20 1346 Yes -ES at 12/18/20 1332 Yes -ES at 12/18/20 1318 Arteriovenous Lines Secure Yes -ES at 12/18/20 1401 Yes -ES at 12/18/20 1346 Yes -ES at 12/18/20 1332 Yes -ES at 12/18/20 1318 Transducer Check Yes -ES at 12/18/20 1401 Yes -ES at 12/18/20 1346 Yes -ES at 12/18/20 1332 Yes -ES at 12/18/20 1318 HD Access Check Yes -ES at 12/18/20 1401 Yes -ES at 12/18/20 1346 Yes -ES at 12/18/20 1332 Yes -ES at 12/18/20 1318 Intra-Hemodialysis Comments post tx vitals -ES at 12/18/20 1401 tx complete -ES at 12/18/20 1401 no acute changes -ES at 12/18/20 1346 no acute changes -ES at 12/18/20 1332 no acute changes -ES at 12/18/20 1318 Temp 36.8 C (98.2 F) -ES at 12/18/20 1401 Temp src Oral -ES at 12/18/20 1401 Pulse 88 -ES at 12/18/20 1401 86 -ES at 12/18/20 1401 90 -ES at 12/18/20 1346 88 -ES at 12/18/20 1332 88 -ES at 12/18/20 1318 Resp 16 -ES at 12/18/20 1401 16 -ES at 12/18/20 1401 16 -ES at 12/18/20 1346 16 -ES at 12/18/20 1332 16 -ES at 12/18/20 1318 BP (!) 150/91 -ES at 12/18/20 1401 (!) 160/93 -ES at 12/18/20 1401 (!) 161/87 -ES at 12/18/20 1346 (!) 163/89 -ES at 12/18/20 1332 (!) 154/86 -ES at 12/18/20 1318 SpO2 94 % -ES at 12/18/20 1401 O2 Device Nasal cannula -ES at 12/18/20 1401 O2 Flow Rate (L/min) 1 L/min -ES at 12/18/20 1401 Hemodialysis Catheter Triple Lumen Non-tunneled Right Internal jugular Hemodialysis Properties Placement Date: 12/13/20 -PP, 12/13/201416 Placement Time: 1413 -PP, 12/13/201416 Inserted by: Dr Holly Allen -PP, 12/13/20 Lot Number: [id number]. 12 Fr x 20 cm -PP, 12/13/201416 Access Type: Non-t unneled -PP, 12/13/201416 Orientation: Right -PP, 12/13/201416 Access Loca tion: Internal jugular -PP, 12/13/201416 Technique: Modified Seldinger;Anatom ical landmarks;Ultrasound Used -PP, 12/13/201416 Vessel Assessment (Ultrasoun d Only): Compressible -PP, 12/13/201416 Tunneled or Non-tunneled: Non-Tunnele d -PP, 12/13/201416 Estimated Blood Loss: Minimal -PP, 12/13/201416 Hemodialysis Properties Placement Date: 12/13/20 -PP, 12/13/201416 Placement Time: 1413 -PP, 12/13/201416 Inserted by: Dr Holly Allen -, 12/13/20 Lot Number: [id number]. 12 Fr x 20 cm -PP, 12/13/201416 Orientation: Right -PP, 12/13/201416 Access Location: Internal jugular -PP, 12/13/201416 Allen hnique: Modified Seldinger;Anatomical landmarks;Ultrasound Used -PP, 12/13/20 1 417 Vessel Assessment (Ultrasound Only): Compressible -PP, 12/13/201416 Tunn eled or Non-tunneled: Non-Tunneled -PP, 12/13/201416 Estimated Blood Loss: Mi nimal -PP, 12/13/201416 Row Name 1300 1245 1230 1215 1200 During Hemodialysis Assessment Blood Flow Rate (mL/min) 600 mL/min -ES at 12/18/20 1302 600 mL/min -ES at 12/18/20 1247 600 mL/min -ES at 12/18/20 1247 600 mL/min -ES at 12/18/20 1216 600 mL/min -ES at 12/18/20 1205 Dialysate Flow Rate (mL/min) 300 -ES at 12/18/20 1302 300 -ES at 12/18/20 1247 300 -ES at 12/18/20 1247 300 -ES at 12/18/20 1216 300 -ES at 12/18/20 1205 Arterial Pressure (mmHg) -110 mmHg -ES at 12/18/20 1302 -110 mmHg -ES at 12/18/20 1247 -110 mmHg -ES at 12/18/20 1247 -110 mmHg -ES at 12/18/20 1216 -110 mmHg -ES at 12/18/20 1205 Venous Pressure (mmHg) 110 -ES at 12/18/20 1302 110 -ES at 12/18/20 1247 110 -ES at 12/18/20 1247 110 -ES at 12/18/20 1216 110 -ES at 12/18/20 1205 TMP (mmHg) 70 -ES at 12/18/20 1302 70 -ES at 12/18/20 1247 70 -ES at 12/18/20 1247 70 -ES at 12/18/20 1216 70 -ES at 12/18/20 1205 Ultrafiltration Rate (mL/min) 100 mL/min -ES at 12/18/20 1302 100 mL/min -ES at 12/18/20 1247 100 mL/min -ES at 12/18/20 1247 100 mL/min -ES at 12/18/20 1216 100 mL/min -ES at 12/18/20 1205 UF Removed (mL) 215 mL -ES at 12/18/20 1302 189 mL -ES at 12/18/20 1247 162 mL -ES at 12/18/20 1247 138 mL -ES at 12/18/20 1216 112 mL -ES at 12/18/20 1216 Blood Pump Running Yes -ES at 12/18/20 1302 Yes -ES at 12/18/20 1247 Yes -ES at 12/18/20 1247 Yes -ES at 12/18/20 1216 Yes -ES at 12/18/20 1205 Arteriovenous Lines Secure Yes -ES at 12/18/20 1302 Yes -ES at 12/18/20 1247 Yes -ES at 12/18/20 1247 Yes -ES at 12/18/20 1216 Yes -ES at 12/18/20 1205 Transducer Check Yes -ES at 12/18/20 1302 Yes -ES at 12/18/20 1247 Yes -ES at 12/18/20 1247 Yes -ES at 12/18/20 1216 Yes -ES at 12/18/20 1205 HD Access Check Yes -ES at 12/18/20 1302 Yes -ES at 12/18/20 1247 Yes -ES at 12/18/20 1247 Yes -ES at 12/18/20 1216 Yes -ES at 12/18/20 1205 Intra-Hemodialysis Comments no acute changes -ES at 12/18/20 1302 no acute changes -ES at 12/18/20 1247 no acute changes -ES at 12/18/20 1247 no acute changes -ES at 12/18/20 1216 no acute changes -ES at 12/18/20 1205 Pulse 89 -ES at 12/18/20 1302 87 -ES at 12/18/20 1247 86 -ES at 12/18/20 1247 85 -ES at 12/18/20 1216 88 -ES at 12/18/20 1205 Resp 16 -ES at 12/18/20 1302 16 -ES at 12/18/20 1247 16 -ES at 12/18/20 1247 16 -ES at 12/18/20 1216 16 -ES at 12/18/20 1205 BP (!) 146/85 -ES at 12/18/20 1302 (!) 146/97 -ES at 12/18/20 1247 (!) 152/84 -ES at 12/18/20 1247 (!) 151/85 -ES at 12/18/20 1216 (!) 143/85 -ES at 12/18/20 1205 Hemodialysis Catheter Triple Lumen Non-tunneled Right Internal jugular Hemodialysis Properties Placement Date: 12/13/20 -PP, 12/13/201416 Placement Time: 1413 -PP, 12/13/201416 Inserted by: Dr Holly Allen -PP, 12/13/20 Lot Number: [id number]. 12 Fr x 20 cm -PP, 12/13/201416 Access Type: Non-t unneled -PP, 12/13/201416 Orientation: Right -PP, 12/13/201416 Access Loca tion: Internal jugular -PP, 12/13/201416 Technique: Modified Seldinger;Anatom ical landmarks;Ultrasound Used -PP, 12/13/201416 Vessel Assessment (Ultrasoun d Only): Compressible -PP, 12/13/201416 Tunneled or Non-tunneled: Non-Tunnele d -PP, 12/13/201416 Estimated Blood Loss: Minimal -PP, 12/13/201416 Hemodialysis Properties Placement Date: 12/13/20 -PP, 12/13/201416 Placement Time: 1413 -PP, 12/13/201416 Inserted by: Dr Holly Allen -PP, 12/13/20 Lot Number: [id number]. 12 Fr x 20 cm -PP, 12/13/201416 Orientation: Right -PP, 12/13/201416 Access Location: Internal jugular -PP, 12/13/201416 Allen hnique: Modified Seldinger;Anatomical landmarks;Ultrasound Used -PP, 12/13/20 1 417 Vessel Assessment (Ultrasound Only): Compressible -PP, 12/13/201416 Tunn eled or Non-tunneled: Non-Tunneled -PP, 12/13/201416 Estimated Blood Loss: Mi nimal -PP, 12/13/201416 Row Name 1145 1130 1115 1100 1050 During Hemodialysis Assessment Treatment Start Time 1050 -ES at 12/18/20 1052 Blood Flow Rate (mL/min) 600 mL/min -ES at 12/18/20 1205 600 mL/min -ES at 12/18/20 1134 600 mL/min -ES at 12/18/20 1119 600 mL/min -ES at 12/18/20 1119 600 mL/min -ES at 12/18/20 1052 Dialysate Flow Rate (mL/min) 300 -ES at 12/18/20 1205 300 -ES at 12/18/20 1134 350 -ES at 12/18/20 1119 350 -ES at 12/18/20 1119 350 -ES at 12/18/20 1052 Arterial Pressure (mmHg) -110 mmHg -ES at 12/18/20 1205 -110 mmHg -ES at 12/18/20 1134 -140 mmHg -ES at 12/18/20 1119 -140 mmHg -ES at 12/18/20 1119 -110 mmHg -ES at 12/18/20 1052 Venous Pressure (mmHg) 110 -ES at 12/18/20 1205 110 -ES at 12/18/20 1134 130 -ES at 12/18/20 1119 130 -ES at 12/18/20 1119 30 -ES at 12/18/20 1052 TMP (mmHg) 70 -ES at 12/18/20 1205 70 -ES at 12/18/20 1134 70 -ES at 12/18/20 1119 70 -ES at 12/18/20 1119 10 -ES at 12/18/20 1052 Ultrafiltration Rate (mL/min) 100 mL/min -ES at 12/18/20 1205 100 mL/min -ES at 12/18/20 1134 100 mL/min -ES at 12/18/20 1119 100 mL/min -ES at 12/18/20 1119 100 mL/min -ES at 12/18/20 1052 UF Removed (mL) 85 mL -ES at 12/18/20 1205 68 mL -ES at 12/18/20 1134 45 mL -ES at 12/18/20 1119 21 mL -ES at 12/18/20 1119 0 mL -ES at 12/18/20 1052 Blood Pump Running Yes -ES at 12/18/20 1205 Yes -ES at 12/18/20 1134 Yes -ES at 12/18/20 1119 Yes -ES at 12/18/20 1119 Yes -ES at 12/18/20 1052 Arteriovenous Lines Secure Yes -ES at 12/18/20 1205 Yes -ES at 12/18/20 1134 Yes -ES at 12/18/20 1119 Yes -ES at 12/18/20 1119 Yes -ES at 12/18/20 1052 Transducer Check Yes -ES at 12/18/20 1205 Yes -ES at 12/18/20 1134 Yes -ES at 12/18/20 1119 Yes -ES at 12/18/20 1119 Yes -ES at 12/18/20 1052 HD Access Check Yes -ES at 12/18/20 1205 Yes -ES at 12/18/20 1134 Yes -ES at 12/18/20 1119 Yes -ES at 12/18/20 1119 Yes -ES at 12/18/20 1052 Intra-Hemodialysis Comments no acute changes -ES at 12/18/20 1205 no acute changes -ES at 12/18/20 1134 no acute changes -ES at 12/18/20 1119 pt resting with eyes closed, chest rising and falling -ES at 12/18/20 1119 tx initiated -ES at 12/18/20 1052 Pulse 88 -ES at 12/18/20 1205 88 -ES at 12/18/20 1134 88 -ES at 12/18/20 1119 85 -ES at 12/18/20 1119 87 -ES at 12/18/20 1052 Resp 16 -ES at 12/18/20 1205 16 -ES at 12/18/20 1134 16 -ES at 12/18/20 1119 18 -ES at 12/18/20 1119 16 -ES at 12/18/20 1052 BP (!) 140/85 -ES at 12/18/20 1205 (!) 145/84 -ES at 12/18/20 1134 (!) 142/85 -ES at 12/18/20 1119 (!) 145/86 -ES at 12/18/20 1119 (!) 156/88 -ES at 12/18/20 1052 Hemodialysis Catheter Triple Lumen Non-tunneled Right Internal jugular Hemodialysis Properties Placement Date: 12/13/20 -PP, 12/13/201416 Placement Time: 1413 -PP, 12/13/201416 Inserted by: Dr Holly Allen -, 12/13/20 141 7 Lot Number: [id number]. 12 Fr x 20 cm -PP, 12/13/201416 Access Type: Non-t unneled -PP, 12/13/201416 Orientation: Right -PP, 12/13/201416 Access Loca tion: Internal jugular -PP, 12/13/201416 Technique: Modified Seldinger;Anatom ical landmarks;Ultrasound Used -PP, 12/13/201416 Vessel Assessment (Ultrasoun d Only): Compressible -PP, 12/13/201416 Tunneled or Non-tunneled: Non-Tunnele d -PP, 12/13/201416 Estimated Blood Loss: Minimal -PP, 12/13/201416 Hemodialysis Properties Placement Date: 12/13/20 -PP, 12/13/201416 Placement Time: 1413 -PP, 12/13/201416 Inserted by: Dr Holly Allen -, 12/13/20 Lot Number: [id number]. 12 Fr x 20 cm -PP, 12/13/201416 Orientation: Right -PP, 12/13/201416 Access Location: Internal jugular -PP, 12/13/201416 Allen hnique: Modified Seldinger;Anatomical landmarks;Ultrasound Used -PP, 12/13/20 1 417 Vessel Assessment (Ultrasound Only): Compressible -PP, 12/13/201416 Tunn eled or Non-tunneled: Non-Tunneled -PP, 12/13/201416 Estimated Blood Loss: Mi nimal -PP, 12/13/201416 Row Name 1016 During Hemodialysis Assessment Intra-Hemodialysis Comments pre tx vitals -ES at 12/18/20 1036 Temp 36.7 C (98.1 F) -ES at 12/18/20 1036 Temp src Oral -ES at 12/18/20 1036 Pulse 82 -ES at 12/18/20 1036 Resp 16 -ES at 12/18/20 1036 BP (!) 142/91 -ES at 12/18/20 1036 SpO2 98 % -ES at 12/18/20 1036 O2 Device Nasal cannula -ES at 12/18/20 1036 O2 Flow Rate (L/min) 1 L/min -ES at 12/18/20 1036 Hemodialysis Catheter Triple Lumen Non-tunneled Right Internal jugular Hemodialysis Properties Placement Date: 12/13/20 -PP, 12/13/201416 Placement Time: 1413 -PP, 12/13/201416 Inserted by: Dr Holly Allen -, 12/13/20 Lot Number: [id number]. 12 Fr x 20 cm -PP, 12/13/201416 Access Type: Non-t unneled -PP, 12/13/201416 Orientation: Right -, 12/13/201416 Access Loca tion: Internal jugular -PP, 12/13/201416 Technique: Marvin Hughes;Anatom ical landmarks;Ultrasound Used -PP, 12/13/201416 Vessel Assessment (Ultrasoun d Only): Compressible -PP, 12/13/201416 Tunneled or Non-tunneled: Non-Tunnele d -PP, 12/13/201416 Estimated Blood Loss: Minimal -PP, 12/13/201416 Hemodialysis Properties Placement Date: 12/13/20 -PP, 12/13/201416 Placement Time: 1414 -PP, 12/13/201416 Inserted by: Dr Holly Allen -PP, 12/13/20 141 7 Lot Number: [id number]. 12 Fr x 20 cm -PP, 12/13/201416 Orientation: Right -PP, 12/13/201416 Access Location: Internal jugular -PP, 12/13/201416 Allen hnique: Modified Seldinger;Anatomical landmarks;Ultrasound Used -PP, 12/13/20 1 417 Vessel Assessment (Ultrasound Only): Compressible -PP, 12/13/201416 Tunn eled or Non-tunneled: Non-Tunneled -PP, 12/13/201416 Estimated Blood Loss: Mi nimal -PP, 12/13/201416 User Chang (r) = Recorded By, (t) = Taken By, (c) = Cosigned By Initials Name Cynthia Ruiz RN Debo Ingram RN POST-TREATMENT (last 8 hours) Hemodialysis Post-Treatment - ThuDecember 18, 2020 Row Name 1400 Post-Hemodialysis Assessment Rinseback Volume (mL) 150 mL -ES at 12/18/201402 Total Liters Processed (L/min) 55.5 L/min -ES at 12/18/201402 Dialyzer Clearance Lightly streaked -ES at 12/18/201402 Duration of Treatment (minutes) 180 minutes -ES at 12/18/20 140 Hemodialysis Intake (mL) 300 mL -ES at 12/18/201402 Hemodialysis Output (mL) 300 mL -ES at 12/18/201402 Patient Response to Treatment tolerated well -ES at 12/18/20 140 Post-Hemodialysis Comments blood returned, cvc packed with heparin -ES at 12/18/201402 Weight 93 kg (205 lb 0.4 oz) -ES at 12/18/201402 HD Post-Treatment Hand-off Report Completed Yes -ES at 12/18/201402 Post Treatment Reported To Jarett Olmstead RN -ES at 12/18/201402 Hemodialysis Catheter Triple Lumen Non-tunneled Right Internal jugular Hemodialysis Properties Placement Date: 12/13/20 -, 12/13/201416 Placement Time: 1413, 12/13/201416 Inserted by: Dr Holly Allen -PP, 12/13/20 141 Lot Number: [id number]. 12 Fr x 20 cm -PP, 12/13/201416 Access Type: Non-t unneled -PP, 12/13/201416 Orientation: Right -, 12/13/201416 Access Loca tion: Internal jugular -, 12/13/201416 Technique: Modified Seldinger;Anatom ical landmarks;Ultrasound Used -, 12/13/201416 Vessel Assessment (Ultrasoun d Only): Compressible -, 12/13/201416 Tunneled or Non-tunneled: Non-Tunnele d -PP, 12/13/201416 Estimated Blood Loss: Minimal -, 12/13/201416 Site Assessment WDL -ES at 12/18/201402 Catheter Packing Heparin -ES at 12/18/201402 Catheter Packing Interventions Packed;Flushed -ES at 12/18/201402 Arterial Port Packing Volume (mL) 1.2 mL -ES at 12/18/201402 Venous Port Packing Volume (mL) 1.2 mL -ES at 12/18/201402 Lumen 1 Status Heparin locked;Disinfecting Cap -ES at 12/18/201402 Lumen 1 Patency Brisk blood return (3ml in 3 sec);Flushes without resistance -ES at 12/18/201402 Lumen 2 Status Heparin locked;Disinfecting Cap -ES at 12/18/201402 Lumen 2 Patency Brisk blood return (3ml in 3 sec);Flushes without resistance -ES at 12/18/201402 Dressing Type Antimicrobial;Sterile;Transparent -ES at 12/18/201402 Dressing Status Checked;Intact -ES at 12/18/201402 Next Dressing Change Due 12/22/20 -ES at 12/18/201402 Hemodialysis Properties Placement Date: 12/13/20 -PP, 12/13/201416 Placement Time: 1413 -PP, 12/13/201416 Inserted by: Dr Holly Allen -PP, 12/13/20 141 7 Lot Number: [id number]. 12 Fr x 20 cm -PP, 12/13/201416 Orientation: Right -PP, 12/13/201416 Access Location: Internal jugular -PP, 12/13/201416 Allen hnique: Modified Seldinger;Anatomical landmarks;Ultrasound Used -PP, 12/13/20 1 417 Vessel Assessment (Ultrasound Only): Compressible -PP, 12/13/201416 Tunn eled or Non-tunneled: Non-Tunneled -PP, 12/13/201416 Estimated Blood Loss: Mi nimal -PP, 12/13/201416 User Chang (r) = Recorded By, (t) = Taken By, (c) = Cosigned By Initials Name PP Cynthia Ruiz, RN ES Debo Ingram RN HD ASSESSMENT (last 8 hours) Hemodialysis Assessment - ThuDecember 18, 2020 Row Name 1403 1016 Nursing Assessment Checks Hepatitis Status Verified Yes -ES at 12/18/20 1403 Yes -ES at 12/18/20 1030 [facility] Consent Verified Yes -ES at 12/18/20 1403 Neurological Neuro (WDL) WDL -ES at 12/18/20 1403 WDL -ES at 12/18/20 1030 Level of Consciousness 0 -ES at 12/18/20 1403 0 -ES at 12/18/20 1030 Orientation Level Oriented to person;Oriented to place;Oriented to time;[place] ed to situation -ES at 12/18/20 1403 Oriented to person;Oriented to place;Oriented to time;Jaspal ented to situation -ES at 12/18/20 1030 Cognition No deficit noted -ES at 12/18/20 1403 No deficit noted -ES at 12/18/20 1030 Speech Clear -ES at 12/18/20 1403 Clear -ES at 12/18/20 1030 HEENT HEENT (WDL) X -ES at 12/18/20 1403 X -ES at 12/18/20 1030 R Eye Impaired vision;Requires visual aid -ES at 12/18/20 1403 Impaired vision;Requires visual aid -ES at 12/18/20 1030 L Eye Impaired vision;Requires visual aid -ES at 12/18/20 1403 Impaired vision;Requires visual aid -ES at 12/18/20 1030 Respiratory Respiratory (WDL) WDL -ES at 12/18/20 1403 WDL -ES at 12/18/20 1030 Head of Bed Elevation Self regulated -ES at 12/18/20 1403 Self regulated -ES at 12/18/20 1030 Respiratory Pattern Normal -ES at 12/18/20 1403 Normal -ES at 12/18/20 1030 Chest Assessment Chest expansion symmetrical -ES at 12/18/20 1403 Chest expansion symmetrical -ES at 12/18/20 1030 Bilateral Breath Sounds Clear;Equal -ES at 12/18/20 1403 Clear;Equal -ES at 12/18/20 1030 Peripheral Vascular Peripheral Vascular (WDL) X -ES at 12/18/20 1403 X -ES at 12/18/20 1030 Edema Right lower extremity;Left lower extremity -ES at 12/18/20 1403 Right lower extremity;Left lower extremity -ES at 12/18/20 1030 RUE Edema Trace -ES at 12/18/20 1403 Trace -ES at 12/18/20 1032 LUE Edema Trace -ES at 12/18/20 1403 Trace -ES at 12/18/20 1032 RLE Edema Trace -ES at 12/18/20 1403 Trace -ES at 12/18/20 1030 LLE Edema Trace -ES at 12/18/20 1403 Trace -ES at 12/18/20 1030 Cardiac Cardiac (WDL) WDL -ES at 12/18/20 1403 WDL -ES at 12/18/20 1030 Cardiac Regularity Regular -ES at 12/18/20 1403 Regular -ES at 12/18/20 1030 Heart Sounds S1, S2 -ES at 12/18/20 1403 S1, S2 -ES at 12/18/20 1030 Skin Assessment Integumentary (WDL) X -ES at 12/18/20 1403 X -ES at 12/18/20 1030 Generalized Skin Color Flushed -ES at 12/18/20 1403 Flushed -ES at 12/18/20 1030 Generalized Skin Moisture Dryness -ES at 12/18/20 1403 Dryness -ES at 12/18/20 1030 Gastrointestinal Gastrointestinal (WDL) X -ES at 12/18/20 1403 X -ES at 12/18/20 1030 Abdomen Inspection Soft;Rounded -ES at 12/18/20 1403 Soft;Rounded -ES at 12/18/20 1030 Bowel Sounds (All Quadrants) Audible -ES at 12/18/20 1403 Audible -ES at 12/18/20 1030 Pain Assessment Patient's Stated Pain Goal 0 -ES at 12/18/20 1403 0 -ES at 12/18/20 1030 Pain Assessment Scale 0-10 -ES at 12/18/20 1403 Scale 0-10 -ES at 12/18/20 1030 Pain Score 0 -ES at 12/18/20 1403 0 -ES at 12/18/20 1030 User Chang (r) = Recorded By, (t) = Taken By, (c) = Cosigned By Initials Name ES Debo Ingram RN * Colby Jones RN - 12/15/2020 3:06 PM CDT Dialysis Treatment Time Medications Dose Volume Route Initials 1411 CVC - Pack with Heparin 2400 units 1.2 ml per port IC CJ Education Able to Educate Patient Yes Patient Procedural Explain Verbalizes Understanding Patient Information Patient Name Sommer Callahan Legal Sex Male Patient tolerated treatment: Poor. Temp HD catheter not functioning properly. Interventions included janak coleman sterile dressing to reposition line, reversing lines, flushing and repositioni ng patient, no interventions were successful. Both lines have brisk blood retu rn and flush well but do not function when HD starts. Arterial line jumping, & pressures increase which continuously stop blood pump. Dr. Chauncey arriola, no ret urn call as of 1509. Hospitalist aware and report given to primary RN. Treatment Time: 13 minutes UF Removal: No UF Estimated Dry Weight: TBD Pre Weight: 92.6kg Pre Weight Source: bed Post Weight: 92.6kg Post Weight Source: bed Hepatitis Verified by: Karina Jones RN Treatment Start Time: 1344 Treatment End Time: 1411 Most Recent Result within the last 7 days Lab Units 12/14/20 0300 SODIUM MEQ/L 136 POTASSIUM MEQ/L 4.6 CHLORIDE MEQ/L 114* CALCIUM mg/dL 7.9* BLOOD UREA NITROGEN mg/dL 41* Dialysis Orders (36h ago, onward) Start Ordered 12/15/20 0000 Hemodialysis inpatient Once Question Answer Comment K+ KPP (Potassium per Protocol) Ca++ 2.5 mg Bicarb 35 mEq / liter Na+ 140 mEq / liter Na+ Modeling: No Dialyzer F180 Dialysate Temperature (C) 37 BFR-As tolerated to a maximum of: Best Flow DFR 600 mL/min Duration of Treatment 3 Hours Dry weight (kg) or fluid removal (L) No UF Access Site AVF 12/14/20 1206 12/14/20 1205 Hemodialysis inpatient Once Question Answer Comment K+ KPP (Potassium per Protocol) Ca++ 2.5 mg Bicarb 35 mEq / liter Na+ 140 mEq / liter Na+ Modeling: No Dialyzer F180 Dialysate Temperature (C) 37 BFR-As tolerated to a maximum of: Best Flow DFR 600 mL/min Duration of Treatment 3 Hours Dry weight (kg) or fluid removal (L) No UF Access Site AVF 12/14/20 1205 PRE/POST HEMODIALYSIS VITALS (last 8 hours) Vitals - Sat December 15, 2020 Row Name 1411 1400 1345 1344 1320 Vital Signs Temp 36.3 C (97.3 F) -CJ at 12/15/20 1503 36.3 C (97.3 F) -CJ at 12/15/20 1457 Temp src Oral -CJ at 12/15/20 1503 Oral -CJ at 12/15/20 1457 Pulse 92 -CJ at 12/15/20 1503 96 -CJ at 12/15/20 1501 96 -CJ at 12/15/20 1500 97 -CJ at 12/15/20 1458 98 -CJ at 12/15/20 1457 Resp 20 -CJ at 12/15/20 1503 20 -CJ at 12/15/20 1501 20 -CJ at 12/15/20 1500 20 -CJ at 12/15/20 1458 20 -CJ at 12/15/20 1457 BP (!) 159/69 -CJ at 12/15/20 1503 (!) 170/70 -CJ at 12/15/20 1501 (!) 172/73 -CJ at 12/15/20 1500 (!) 178/79 -CJ at 12/15/20 1458 (!) 177/72 -CJ at 12/15/20 1457 Weight 92.6 kg (204 lb 2.3 oz) -CJ at 12/15/20 1505 92.6 kg (204 lb 2.3 oz) -CJ at 12/15/20 1456 Row Name 1113 0950 0749 Vital Signs Temp 36.3 C (97.3 F) -WI at 12/15/20 1115 36.6 C (97.8 F) -ST at 12/15/20 0951 36.4 C (97.5 F) -WI at 12/15/20 0826 Temp src Oral -ST at 12/15/20 0951 Oral -WI at 12/15/20 0826 Pulse 98 -WI at 12/15/20 1115 93 -ST at 12/15/20 0951 97 -WI at 12/15/20 0752 SpO2 95 % -WI at 12/15/20 1115 93 % -ST at 12/15/20 0951 98 % -WI at 12/15/20 0752 Resp 20 -WI at 12/15/20 1115 18 -ST at 12/15/20 0951 20 -WI at 12/15/20 0752 BP (!) 158/97 -WI at 12/15/20 1115 138/85 -ST at 12/15/20 0951 (!) 177/109 -WI at 12/15/20 0752 BP Location Left arm -WI at 12/15/20 1115 Right arm -ST at 12/15/20 0951 Left arm -WI at 12/15/20 0752 Patient position Supine -WI at 12/15/20 1115 Supine -ST at 12/15/20 0951 Supine -WI at 12/15/20 0752 User Chang (r) = Recorded By, (t) = Taken By, (c) = Cosigned By Initials Name [place] JANINE Bobby, MONTSE Corey PRE-TREATMENT (last 8 hours) Hemodialysis Pre-Treatment - Sat December 15, 2020 Row Name 1320 Pre-Hemodialysis Assessment Patient Status Arrived -CJ at 12/15/20 1456 HD Pre-Treatment Hand-off Review of SBAR Completed Yes -CJ at 12/15/20 145 HD Pre-Treatment Report from Floor Nurse (name) Jorden Campoverde RN -CJ at 12/15/20 1456 HBsAg Results Negative -CJ at 12/15/20 1456 HBsAg Date Last Tested 11/26/20 -CJ at 12/15/20 1456 HBsAb Results Susceptible (<10) -CJ at 12/15/20 145 HBsAb Date Last Tested 11/26/20 -CJ at 12/15/20 1456 Treatment Status Pending Start -CJ at 12/15/20 145 Weight 92.6 kg (204 lb 2.3 oz) -CJ at 12/15/20 1456 Weight Source Bed -CJ at 12/15/20 145 Correct Order/Script Yes -CJ at 12/15/20 145 Correct Patient? Yes -CJ at 12/15/20 1456 Correct Site/Side? Yes -CJ at 12/15/20 1456 What Procedure? HD -CJ at 12/15/20 1456 [facility] Consent Verified Yes -CJ at 12/15/20 1456 pH 7.4 -CJ at 12/15/20 1456 Gross Bleach Negative Yes -CJ at 12/15/20 1456 Gross Bleach Check Time 1330 -CJ at 12/15/20 1456 Chlorine Negative Yes -CJ at 12/15/20 1456 Chlorine Check Time 1330 -CJ at 12/15/20 1456 Machine Temperature 37 C (98.6 F) -CJ at 12/15/20 1456 Dialyzer F-180 -CJ at 12/15/20 1456 Meter Conductivity 13.8 -CJ at 12/15/20 1456 HD Machine Conductivity 14 -CJ at 12/15/20 1456 Sodium Modeling NA -CJ at 12/15/20 1456 Dialysate Na (mEq/L) 140 mEq/L -CJ at 12/15/20 1456 Dialysate K (mEq/L) 2 mEq/L -CJ at 12/15/20 1456 Dialysate CA (mEq/L) 2.5 mEq/L -CJ at 12/15/20 1456 Dialysate HCO3 (mEq/L) 35 mEq/L -CJ at 12/15/20 1456 Prime Ordered (mL) 150 mL -CJ at 12/15/20 145 Pre-Hemodialysis Comments iceboat -CJ at 12/15/20 145 Hemodialysis Catheter Triple Lumen Non-tunneled Right Internal jugular Hemodialysis Properties Placement Date: 12/13/20 -PP, 12/13/201416 Placement Time: 1413 -PP, 12/13/201416 Inserted by: Dr Holly Allen -PP, 12/13/20 141 7 Lot Number: [id number]. 12 Fr x 20 cm -PP, 12/13/201416 Access Type: Non-t unneled -PP, 12/13/201416 Orientation: Right -PP, 12/13/201416 Access Loca tion: Internal jugular -PP, 12/13/201416 Technique: Modified Seldinger;Anatom ical landmarks;Ultrasound Used -PP, 12/13/201416 Vessel Assessment (Ultrasoun d Only): Compressible -PP, 12/13/201416 Tunneled or Non-tunneled: Non-Tunnele d -PP, 12/13/201416 Estimated Blood Loss: Minimal -PP, 12/13/201416 Site Assessment WDL;Dressing in Place -CJ at 12/15/201455 Catheter Packing Heparin -CJ at 12/15/201455 Catheter Packing Interventions Unpacked;Flushed -CJ at 12/15/201455 Arterial Port Packing Volume (mL) 1.2 mL -CJ at 12/15/201455 Venous Port Packing Volume (mL) 1.2 mL -CJ at 12/15/201455 Lumen 1 Status Heparin locked;Disinfecting Cap -CJ at 12/15/201455 Lumen 1 Patency Flushes without resistance;Brisk blood return (3ml in 3 sec) -CJ at 12/15/20 145 Lumen 2 Status Heparin locked;Disinfecting Cap -CJ at 12/15/201455 Lumen 2 Patency Flushes without resistance;Brisk blood return (3ml in 3 sec) -CJ at 12/15/201455 Dressing Type Transparent;Sterile -CJ at 12/15/201455 Dressing Status New dressing -CJ at 12/15/201455 Next Dressing Change Due 12/22/20 -CJ at 12/15/201455 Hemodialysis Properties Placement Date: 12/13/20 -PP, 12/13/201416 Placement Time: 1413 -PP, 12/13/201416 Inserted by: Dr Holly Allen -PP, 12/13/20 Lot Number: [id number]. 12 Fr x 20 cm -PP, 12/13/201416 Orientation: Right -PP, 12/13/201416 Access Location: Internal jugular -PP, 12/13/201416 Allen hnique: Modified Seldinger;Anatomical landmarks;Ultrasound Used -PP, 12/13/20 1 417 Vessel Assessment (Ultrasound Only): Compressible -PP, 12/13/201416 Tunn eled or Non-tunneled: Non-Tunneled -PP, 12/13/201416 Estimated Blood Loss: Mi nimal -PP, 12/13/201416 Hemodialysis Machine Check HD Machine # [id number] -CJ at 12/15/20 145 HD Reverse Osmosis # 17 -CJ at 12/15/20 145 Alarms Verified Yes -CJ at 12/15/201455 HD Dialyzer Lot # [id number] -CJ at 12/15/20 145 HD Tubing Lot # [id number] -CJ at 12/15/20 145 HD RO Machine Log Completed Yes -CJ at 12/15/20 145 HD Initiation Checklist All Connections Secured;Venous Parameters Set;Saline L ine Double Clamped;Arterial Parameters Set;Prime Given;Air Foam Detector Engaged -CJ at 12/15/201455 User Chang (r) = Recorded By, (t) = Taken By, (c) = Cosigned By Initials Name MOTNSE Yuan RN TREATMENT (last 8 hours) Hemodialysis Treatment - Sat December 15, 2020 Row Name 1411 1400 1345 1344 1320 During Hemodialysis Assessment Treatment Start Time 1344 -CJ at 12/15/20 1503 1344 -CJ at 12/15/20 1458 Treatment Stop Time 1411 -CJ at 12/15/20 1503 Blood Flow Rate (mL/min) 175 mL/min -CJ at 12/15/20 1501 200 mL/min -CJ at 12/15/20 1500 200 mL/min -CJ at 12/15/20 1458 Dialysate Flow Rate (mL/min) 600 -CJ at 12/15/20 1501 600 -CJ at 12/15/20 1500 600 -CJ at 12/15/20 1458 Arterial Pressure (mmHg) -330 mmHg -CJ at 12/15/20 1501 -390 mmHg -CJ at 12/15/20 1500 -200 mmHg -CJ at 12/15/20 1458 Venous Pressure (mmHg) 200 -CJ at 12/15/20 1501 200 -CJ at 12/15/20 1500 160 -CJ at 12/15/20 1458 TMP (mmHg) 40 -CJ at 12/15/20 1501 40 -CJ at 12/15/20 1500 40 -CJ at 12/15/20 1458 Ultrafiltration Rate (mL/min) 100 mL/min -CJ at 12/15/20 1501 100 mL/min -CJ at 12/15/20 1500 100 mL/min -CJ at 12/15/20 1458 UF Removed (mL) 37 mL -CJ at 12/15/20 1503 17 mL -CJ at 12/15/20 1501 3 mL -CJ at 12/15/20 1500 0 mL -CJ at 12/15/20 1458 Blood Pump Running Yes -CJ at 12/15/20 1501 Yes -CJ at 12/15/20 1500 Yes -CJ at 12/15/20 1458 Arteriovenous Lines Secure Yes -CJ at 12/15/20 1501 Yes -CJ at 12/15/20 1500 Yes -CJ at 12/15/20 1458 Transducer Check Yes -CJ at 12/15/20 1501 Yes -CJ at 12/15/20 1500 Yes -CJ at 12/15/20 1458 HD Access Check Yes -CJ at 12/15/20 1501 Yes -CJ at 12/15/20 1500 Yes -CJ at 12/15/20 1458 Intra-Hemodialysis Comments tx terminated, line not functioning properly, all interventions failed, blood returned and cvc packed with heparin, primary RN stan haywood, Dr. Hsieh paged and not return call. -CJ at 12/15/20 1503 attempted reversing, line jerking as trying to pull blood , dressing changed and not helpful, malfunctioning -CJ at 12/15/20 1501 line not functioning, arterial pressure high, line positi onal, attempted to reverse lines with no luck, head lowered with no luck, -CJ at 12/15/20 1500 tx initiated after changing line dressing -CJ at 12/15/20 1458 pre tx vitals -CJ at 12/15/20 1457 Temp 36.3 C (97.3 F) -CJ at 12/15/20 1503 36.3 C (97.3 F) -CJ at 12/15/20 1457 Temp src Oral -CJ at 12/15/20 1503 Oral -CJ at 12/15/20 1457 Pulse 92 -CJ at 12/15/20 1503 96 -CJ at 12/15/20 1501 96 -CJ at 12/15/20 1500 97 -CJ at 12/15/20 1458 98 -CJ at 12/15/20 1457 Resp 20 -CJ at 12/15/20 1503 20 -CJ at 12/15/20 1501 20 -CJ at 12/15/20 1500 20 -CJ at 12/15/20 1458 20 -CJ at 12/15/20 1457 BP (!) 159/69 -CJ at 12/15/20 1503 (!) 170/70 -CJ at 12/15/20 1501 (!) 172/73 -CJ at 12/15/20 1500 (!) 178/79 -CJ at 12/15/20 1458 (!) 177/72 -CJ at 12/15/20 1457 O2 Device None (Room air) -CJ at 12/15/20 1503 None (Room air) -CJ at 12/15/20 1501 None (Room air) -CJ at 12/15/20 1500 None (Room air) -CJ at 12/15/20 1458 None (Room air) -CJ at 12/15/20 145 Hemodialysis Catheter Triple Lumen Non-tunneled Right Internal jugular Hemodialysis Properties Placement Date: 12/13/20 -PP, 12/13/201416 Placement Time: 1413 -PP, 12/13/201416 Inserted by: Dr Holly Aleln -PP, 12/13/20 Lot Number: [id number]. 12 Fr x 20 cm -PP, 12/13/201416 Access Type: Non-t unneled -PP, 12/13/201416 Orientation: Right -PP, 12/13/201416 Access Loca tion: Internal jugular -PP, 12/13/201416 Technique: Modified Seldinger;Anatom ical landmarks;Ultrasound Used -PP, 12/13/201416 Vessel Assessment (Ultrasoun d Only): Compressible -PP, 12/13/201416 Tunneled or Non-tunneled: Non-Tunnele d -PP, 12/13/201416 Estimated Blood Loss: Minimal -PP, 12/13/201416 Hemodialysis Properties Placement Date: 12/13/20 -PP, 12/13/201416 Placement Time: 1413 -PP, 12/13/201416 Inserted by: Dr Holly Allen -PP, 12/13/20 Lot Number: [id number]. 12 Fr x 20 cm -PP, 12/13/201416 Orientation: Right -PP, 12/13/201416 Access Location: Internal jugular -PP, 12/13/201416 Allen hnique: Modified Seldinger;Anatomical landmarks;Ultrasound Used -PP, 12/13/20 1 417 Vessel Assessment (Ultrasound Only): Compressible -PP, 12/13/201416 Tunn eled or Non-tunneled: Non-Tunneled -PP, 12/13/201416 Estimated Blood Loss: Mi nimal -PP, 12/13/201416 User Chang (r) = Recorded By, (t) = Taken By, (c) = Cosigned By Initials Name Cynthia Ruiz RN Colby Jones RN POST-TREATMENT (last 8 hours) Hemodialysis Post-Treatment - Sat December 15, 2020 Row Name 1411 Post-Hemodialysis Assessment Rinseback Volume (mL) 150 mL -CJ at 12/15/20 1505 Total Liters Processed (L/min) 3 L/min -CJ at 12/15/20 1505 Dialyzer Clearance Lightly streaked -CJ at 12/15/20 1505 Duration of Treatment (minutes) 13 minutes -CJ at 12/15/20 1505 Hemodialysis Intake (mL) 300 mL -CJ at 12/15/20 1505 Hemodialysis Output (mL) 13 mL -CJ at 12/15/20 1505 Patient Response to Treatment Catheter was not functioning properly. Unable to complete tx. -CJ at 12/15/20 1505 Post-Hemodialysis Comments Blood returned, CVC packed. Report provided -CJ at 12/15/20 1505 Weight 92.6 kg (204 lb 2.3 oz) -CJ at 12/15/20 1505 HD Post-Treatment Hand-off Report Completed Yes -CJ at 12/15/20 150 Post Treatment Reported To Jorden Campoverde RN -CJ at 12/15/20 150 Hemodialysis Catheter Triple Lumen Non-tunneled Right Internal jugular Hemodialysis Properties Placement Date: 12/13/20 -PP, 12/13/201416 Placement Time: 1413 -PP, 12/13/201416 Inserted by: Dr Holly Allen -PP, 12/13/20 Lot Number: [id number]. 12 Fr x 20 cm -PP, 12/13/201416 Access Type: Non-t unneled -PP, 12/13/201416 Orientation: Right -, 12/13/201416 Access Loca tion: Internal jugular -PP, 12/13/201416 Technique: Modified Seldinger;Anatom ical landmarks;Ultrasound Used -PP, 12/13/201416 Vessel Assessment (Ultrasoun d Only): Compressible -PP, 12/13/201416 Tunneled or Non-tunneled: Non-Tunnele d -PP, 12/13/201416 Estimated Blood Loss: Minimal -PP, 12/13/201416 Site Assessment WDL;Dressing in Place -CJ at 12/15/20 150 Catheter Packing Heparin -CJ at 12/15/20 150 Catheter Packing Interventions Flushed;Packed -CJ at 12/15/20 150 Arterial Port Packing Volume (mL) 1.2 mL -CJ at 12/15/20 1505 Venous Port Packing Volume (mL) 1.2 mL -CJ at 12/15/20 150 Lumen 1 Status Heparin locked;Disinfecting Cap -CJ at 12/15/20 1505 Lumen 1 Patency Flushes without resistance -CJ at 12/15/20 1505 Lumen 2 Status Heparin locked;Disinfecting Cap -CJ at 12/15/20 150 Lumen 2 Patency Flushes without resistance -CJ at 12/15/20 150 Dressing Type Transparent;Sterile -CJ at 12/15/20 150 Dressing Status Checked;Intact -CJ at 12/15/20 1505 Next Dressing Change Due 12/22/20 -CJ at 12/15/20 1505 Hemodialysis Properties Placement Date: 12/13/20 -PP, 12/13/201416 Placement Time: 1413 -PP, 12/13/201416 Inserted by: Dr Holly Allen -PP, 12/13/20 Lot Number: [id number]. 12 Fr x 20 cm -PP, 12/13/201416 Orientation: Right -PP, 12/13/201416 Access Location: Internal jugular -PP, 12/13/201416 Allen hnique: Modified Seldinger;Anatomical landmarks;Ultrasound Used -PP, 12/13/20 1 417 Vessel Assessment (Ultrasound Only): Compressible -PP, 12/13/201416 Tunn eled or Non-tunneled: Non-Tunneled -PP, 12/13/201416 Estimated Blood Loss: Mi nimal -PP, 12/13/201416 User Chang (r) = Recorded By, (t) = Taken By, (c) = Cosigned By Initials Name Cynthia Ruiz RN Colby Jones RN HD ASSESSMENT (last 8 hours) Hemodialysis Assessment - Sat December 15, 2020 Row Name 1411 1320 Nursing Assessment Checks Hepatitis Status Verified Yes -CJ at 12/15/20 1506 Yes -CJ at 12/15/20 1457 [facility] Consent Verified Yes -CJ at 12/15/20 1506 Neurological Neuro (WDL) WDL -CJ at 12/15/20 1506 WDL -CJ at 12/15/20 1457 HEENT HEENT (WDL) WDL -CJ at 12/15/20 1506 WDL -CJ at 12/15/20 1457 Teeth Missing teeth;Poor dental hygiene -CJ at 12/15/20 1506 Missing teeth;Poor dental hygiene -CJ at 12/15/20 1457 Respiratory Respiratory (WDL) WDL -CJ at 12/15/20 1506 WDL -CJ at 12/15/20 1457 Head of Bed Elevation Self regulated;HOB 30 -CJ at 12/15/20 1506 Self regulated;HOB 30 -CJ at 12/15/20 1457 Respiratory Pattern Normal -CJ at 12/15/20 1506 Normal -CJ at 12/15/20 1457 Chest Assessment Chest expansion symmetrical -CJ at 12/15/20 1506 Chest expansion symmetrical -CJ at 12/15/20 1457 Bilateral Breath Sounds Clear;Equal -CJ at 12/15/20 1506 Clear;Equal -CJ at 12/15/20 1457 Peripheral Vascular Peripheral Vascular (WDL) WDL -CJ at 12/15/20 1506 WDL -CJ at 12/15/20 1457 Cardiac Cardiac (WDL) WDL -CJ at 12/15/20 1506 WDL -CJ at 12/15/20 1457 Cardiac Regularity Regular -CJ at 12/15/20 1506 Regular -CJ at 12/15/20 1457 Heart Sounds S1, S2 -CJ at 12/15/20 1506 S1, S2 -CJ at 12/15/20 1457 Jugular Venous Distention (JVD) No -CJ at 12/15/20 1506 No -CJ at 12/15/20 1457 Cardiac Rhythm Normal Sinus Rhythm -CJ at 12/15/20 1506 Normal Sinus Rhythm -CJ at 12/15/20 1457 Skin Assessment Integumentary (WDL) X -CJ at 12/15/20 1506 X -CJ at 12/15/20 1457 Generalized Skin Moisture Dryness -CJ at 12/15/20 1506 Dryness -CJ at 12/15/20 1457 Generalized Skin Temp Cool -CJ at 12/15/20 1506 Cool -CJ at 12/15/20 1457 Gastrointestinal Gastrointestinal (WDL) X -CJ at 12/15/20 1506 X -CJ at 12/15/20 1457 Abdomen Inspection Soft;Rounded -CJ at 12/15/20 1506 Soft;Rounded -CJ at 12/15/20 1457 Bowel Sounds (All Quadrants) Audible -CJ at 12/15/20 1506 Audible -CJ at 12/15/20 1457 Pain Assessment Patient's Stated Pain Goal 0 -CJ at 12/15/20 1506 0 -CJ at 12/15/20 1457 Pain Assessment No/denies pain -CJ at 12/15/20 1506 No/denies pain -CJ at 12/15/20 1457 User Chang (r) = Recorded By, (t) = Taken By, (c) = Cosigned By Initials Name CJ Colby Jones RN * Saundra Levi RN - 12/14/2020 10:35 PM CDT Dialysis Treatment Time Medications Dose Volume Route Initials 2029 CVC - Pack with Heparin 2400units 1.2 ml per lumen Intracatheter vs Education Able to Educate Patient Yes Patient Procedural Explain Verbalizes Understanding Patient Information Patient Name Sommer Callahan Legal Sex Male Patient tolerated treatment: Pt was unable to complete tx due to malfunctioning HD line. Despite numerous attempts, I was unable to get catheters working to com plete tx. Frequent high arterial pressure alarms would not allow for completion of tx. Dr. David notified. Bedside RN advised to notify IR, per Dr. David, tisha t the catheter will need assessed and/or replaced for HD tx ordered for tomorrow . Bedside RN, Jarett Saini, RN, verbalized understanding. Blood was able to be retu rned and currently HD line packed per protocol. Treatment Time: 79 min UF Removal: +230 ml Estimated Dry Weight: TBD Pre Weight: 90.266 kg Pre Weight Source: bed Post Weight: 90.496 kg Post Weight Source: Pre weight adjusted for UF Hepatitis Verified by: Adrianna Levi, MSN, RN Treatment Start Time: 1910 Treatment End Time: 2029 Most Recent Result within the last 7 days Lab Units 12/14/20 0300 SODIUM MEQ/L 136 POTASSIUM MEQ/L 4.6 CHLORIDE MEQ/L 114* CALCIUM mg/dL 7.9* BLOOD UREA NITROGEN mg/dL 41* Dialysis Orders (36h ago, onward) Start Ordered 12/15/20 0000 Hemodialysis inpatient Once Question Answer Comment K+ KPP (Potassium per Protocol) Ca++ 2.5 mg Bicarb 35 mEq / liter Na+ 140 mEq / liter Na+ Modeling: No Dialyzer F180 Dialysate Temperature (C) 37 BFR-As tolerated to a maximum of: Best Flow DFR 600 mL/min Duration of Treatment 3 Hours Dry weight (kg) or fluid removal (L) No UF Access Site AVF 12/14/20 1206 12/14/20 1205 Hemodialysis inpatient Once Question Answer Comment K+ KPP (Potassium per Protocol) Ca++ 2.5 mg Bicarb 35 mEq / liter Na+ 140 mEq / liter Na+ Modeling: No Dialyzer F180 Dialysate Temperature (C) 37 BFR-As tolerated to a maximum of: Best Flow DFR 600 mL/min Duration of Treatment 3 Hours Dry weight (kg) or fluid removal (L) No UF Access Site AVF 12/14/20 1205 PRE/POST HEMODIALYSIS VITALS (last 8 hours) Vitals - ThuDecember 14, 2020 Row Name 2034 2029 2014 1999 1944 Vital Signs Temp 36.7 C (98 F) -VS at 12/14/202223 Temp src Temporal -VS at 12/14/202223 Pulse 93 -VS at 12/14/202223 95 -ML (r) VS (t) at 12/14/202146 96 -ML (r) VS (t) at 12/14/202146 97 -VS at 12/14/202003 96 -VS at 12/14/201945 SpO2 96 % -VS at 12/14/202223 Resp 16 -VS at 12/14/202223 16 -ML (r) VS (t) at 12/14/202146 18 -ML (r) VS (t) at 12/14/202146 17 -VS at 12/14/202003 16 -VS at 12/14/201945 BP (!) 172/99 -VS at 12/14/202223 (!) 174/98 -ML (r) VS (t) at 12/14/202146 (!) 179/101 -ML (r) VS (t) at 12/14/202146 (!) 180/104 -VS at 12/14/202003 (!) 168/102 -VS at 12/14/201945 Weight 90.5 kg (199 lb 8.1 oz) -VS at 12/14/202227 Row Name 1929 1914 191 190 1853 Vital Signs Temp 36.8 C (98.2 F) -VS at 12/14/201906 Temp src Temporal -VS at 12/14/201906 Pulse 93 -VS at 12/14/201931 93 -VS at 12/14/201926 91 -VS at 12/14/201925 95 -VS at 12/14/20 190 SpO2 96 % -VS at 12/14/201906 Resp 16 -VS at 12/14/201931 17 -VS at 12/14/201926 16 -VS at 12/14/201925 18 -VS at 12/14/201906 BP (!) 173/99 -VS at 12/14/201931 (!) 181/103 entry corretion -VS at 12/14/201930 (!) 181/103 -VS at 12/14/201925 (!) 176/100 -VS at 12/14/201906 Weight 90.3 kg (199 lb) -VS at 12/14/201899 Row Name 1522 Vital Signs Temp 36.8 C (98.2 F) -ST at 12/14/20 1524 Temp src Oral -ST at 12/14/20 1524 Pulse 94 -ST at 12/14/20 1524 SpO2 95 % -ST at 12/14/20 1524 Resp 20 -ST at 12/14/20 1524 BP 136/77 -ST at 12/14/20 1524 BP Location Right arm -ST at 12/14/20 1524 Patient position Supine -ST at 12/14/20 1524 User Chang (r) = Recorded By, (t) = Taken By, (c) = Cosigned By Initials Name VS MONTSE Sands CNA [facility] Sthefany S Torres PRE-TREATMENT (last 8 hours) Hemodialysis Pre-Treatment - ThuDecember 14, 2020 Row Name 185 Pre-Hemodialysis Assessment Patient Status Arrived -VS at 12/14/201852 HD Pre-Treatment Hand-off Review of SBAR Completed Yes -VS at 12/14/201852 HD Pre-Treatment Report from Floor Nurse (name) Jess Campoverde RN -VS at 12/14/201899 HBsAg Results Negative -VS at 12/14/201899 HBsAg Date Last Tested 11/26/20 -VS at 12/14/201899 HBsAb Results Susceptible (<10) -VS at 12/14/201899 HBsAb Date Last Tested 11/26/20 -VS at 12/14/201899 Treatment Status Pending Start -VS at 12/14/201899 Weight 90.3 kg (199 lb) -VS at 12/14/201899 Weight Source Bed -VS at 12/14/201899 Correct Order/Script Yes -VS at 12/14/201899 Correct Patient? Yes -VS at 12/14/201899 Correct Site/Side? Yes -VS at 12/14/201899 What Procedure? HD -VS at 12/14/201899 [facility] Consent Verified Yes -VS at 12/14/201899 pH 7.2 -VS at 12/14/201899 Gross Bleach Negative Yes -VS at 12/14/201899 Gross Bleach Check Time 1845 -VS at 12/14/201899 Chlorine Negative Yes -VS at 12/14/201899 Chlorine Check Time 1845 -VS at 12/14/201899 Machine Temperature 37 C (98.6 F) -VS at 12/14/201899 Dialyzer F-180 -VS at 12/14/201899 Meter Conductivity 13.9 -VS at 12/14/201899 HD Machine Conductivity 14 -VS at 12/14/201899 Sodium Modeling NA -VS at 12/14/201899 Dialysate Na (mEq/L) 140 mEq/L -VS at 12/14/201899 Dialysate K (mEq/L) 2 mEq/L -VS at 12/14/201899 Dialysate CA (mEq/L) 2.5 mEq/L -VS at 12/14/201899 Dialysate HCO3 (mEq/L) 35 mEq/L -VS at 12/14/201899 Prime Ordered (mL) 150 mL -VS at 12/14/201899 Pre-Hemodialysis Comments iceboat -VS at 12/14/201899 Hemodialysis Catheter Triple Lumen Non-tunneled Right Internal jugular Hemodialysis Properties Placement Date: 12/13/20 -, 12/13/201416 Placement Time: 1413 -PP, 12/13/201416 Inserted by: Dr Holly Allen -, 12/13/20 Lot Number: [id number]. 12 Fr x 20 cm -PP, 12/13/201416 Access Type: Non-t unneled -, 12/13/201416 Orientation: Right -, 12/13/201416 Access Loca tion: Internal jugular -PP, 12/13/201416 Technique: Modified Seldinger;Anatom ical landmarks;Ultrasound Used -PP, 12/13/201416 Vessel Assessment (Ultrasoun d Only): Compressible -PP, 12/13/201416 Tunneled or Non-tunneled: Non-Tunnele d -PP, 12/13/201416 Estimated Blood Loss: Minimal -PP, 12/13/201416 Site Assessment WDL;Dressing in Place -VS at 12/14/201899 Catheter Packing Heparin -VS at 12/14/201899 Catheter Packing Interventions Unpacked -VS at 12/14/201899 Arterial Port Packing Volume (mL) 1.2 mL -VS at 12/14/201899 Venous Port Packing Volume (mL) 1.2 mL -VS at 12/14/201899 Lumen 1 Status Capped;Heparin locked -VS at 12/14/201899 Lumen 1 Patency Brisk blood return (3ml in 3 sec);Flushes without resistance -VS at 12/14/201899 Lumen 2 Status Capped;Heparin locked -VS at 12/14/201899 Lumen 2 Patency Brisk blood return (3ml in 3 sec);Flushes without resistance -VS at 12/14/201899 Lumen 3 Status Capped;Normal saline locked -VS at 12/14/201899 Dressing Type Transparent;Sterile -VS at 12/14/201899 Dressing Status Checked;Intact -VS at 12/14/201899 Next Dressing Change Due 12/20/20 -VS at 12/14/201899 Needleless Connector Changed No -VS at 12/14/201899 Hemodialysis Properties Placement Date: 12/13/20 -PP, 12/13/201416 Placement Time: 1413 -PP, 12/13/201416 Inserted by: Dr Holly Allen -PP, 12/13/20 Lot Number: [id number]. 12 Fr x 20 cm -PP, 12/13/201416 Orientation: Right -PP, 12/13/201416 Access Location: Internal jugular -PP, 12/13/201416 Allen hnique: Modified Seldinger;Anatomical landmarks;Ultrasound Used -PP, 12/13/20 1 417 Vessel Assessment (Ultrasound Only): Compressible -PP, 12/13/201416 Tunn eled or Non-tunneled: Non-Tunneled -PP, 12/13/201416 Estimated Blood Loss: Mi nimal -PP, 10/14/21 1417 Hemodialysis Machine Check HD Machine # [id number] -VS at 12/14/201899 HD Reverse Osmosis # 107 -VS at 12/14/201899 Alarms Verified Yes -VS at 12/14/201899 HD Dialyzer Lot # [id number] -VS at 12/14/201899 HD Tubing Lot # [id number] -VS at 12/14/201899 HD RO Machine Log Completed Yes -VS at 12/14/201899 HD Initiation Checklist All Connections Secured;Venous Parameters Set;Saline L ine Double Clamped;Arterial Parameters Set;Prime Given;Air Foam Detector Engaged -VS at 12/14/201899 User Chang (r) = Recorded By, (t) = Taken By, (c) = Cosigned By Initials Name PP Cynthia Ruiz RN VS Saundra Levi RN TREATMENT (last 8 hours) Hemodialysis Treatment - ThuDecember 14, 2020 Row Name 2034 2029 2014 1999 1944 During Hemodialysis Assessment Treatment Stop Time 2029 -VS at 12/14/202223 Blood Flow Rate (mL/min) 200 mL/min -VS at 12/14/202223 200 mL/min -VS at 12/14/202223 300 mL/min -VS at 12/14/202003 300 mL/min -VS at 12/14/201945 Dialysate Flow Rate (mL/min) 600 -VS at 12/14/202223 600 -VS at 12/14/202223 600 -VS at 12/14/202003 600 -VS at 12/14/201945 Arterial Pressure (mmHg) -300 mmHg -VS at 12/14/202223 -280 mmHg -VS at 12/14/202223 -70 mmHg -VS at 12/14/202003 -90 mmHg -VS at 12/14/201945 Venous Pressure (mmHg) 60 -VS at 12/14/202223 70 -VS at 12/14/202223 60 -VS at 12/14/202003 90 -VS at 12/14/201945 TMP (mmHg) 50 -VS at 12/14/202223 50 -VS at 12/14/202223 50 -VS at 12/14/202003 50 -VS at 12/14/201945 Ultrafiltration Rate (mL/min) 100 mL/min -VS at 12/14/202223 100 mL/min -VS at 12/14/202223 100 mL/min -VS at 12/14/202003 100 mL/min -VS at 12/14/201945 UF Removed (mL) 70 mL -VS at 12/14/202223 58 mL -VS at 12/14/202223 49 mL -VS at 12/14/202003 39 mL -VS at 12/14/201945 Blood Pump Running Yes -VS at 12/14/202223 Yes -VS at 12/14/202223 Yes -VS at 12/14/202003 Yes -VS at 12/14/201945 Arteriovenous Lines Secure Yes -VS at 12/14/202223 Yes -VS at 12/14/202223 Yes -VS at 12/14/202003 Yes -VS at 12/14/201945 Transducer Check Yes -VS at 12/14/202223 Yes -VS at 12/14/202223 Yes -VS at 12/14/202003 Yes -VS at 12/14/201945 HD Access Check Yes -VS at 12/14/202223 Yes -VS at 12/14/202223 Yes -VS at 12/14/202003 Yes -VS at 12/14/201945 Intra-Hemodialysis Comments Post tx vitals -VS at 12/14/202223 Tx ended; catheter is not functioning -VS at 12/14/202223 Frequent high arterial pressures -VS at 12/14/202223 Lines reverse for high art. pressures -VS at 12/14/202003 Even RR. No acute changes. -VS at 12/14/201945 Temp 36.7 C (98 F) -VS at 12/14/202223 Temp src Temporal -VS at 12/14/202223 Pulse 93 -VS at 12/14/202223 95 -ML (r) VS (t) at 12/14/202146 96 -ML (r) VS (t) at 12/14/202146 97 -VS at 12/14/202003 96 -VS at 12/14/201945 Resp 16 -VS at 12/14/202223 16 -ML (r) VS (t) at 12/14/202146 18 -ML (r) VS (t) at 12/14/202146 17 -VS at 12/14/202003 16 -VS at 12/14/201945 BP (!) 172/99 -VS at 12/14/202223 (!) 174/98 -ML (r) VS (t) at 12/14/202146 (!) 179/101 -ML (r) VS (t) at 12/14/202146 (!) 180/104 -VS at 12/14/202003 (!) 168/102 -VS at 12/14/201945 SpO2 96 % -VS at 12/14/202223 O2 Device None (Room air) -VS at 12/14/202223 None (Room air) -VS at 12/14/202223 None (Room air) -ML (r) VS (t) at 12/14/202146 None (Room air) -VS at 12/14/202003 None (Room air) -VS at 12/14/201945 Hemodialysis Catheter Triple Lumen Non-tunneled Right Internal jugular Hemodialysis Properties Placement Date: 12/13/20 -PP, 12/13/201416 Placement Time: 1413 -, 12/13/201416 Inserted by: Dr Holly Allen -, 12/13/20 Lot Number: [id number]. 12 Fr x 20 cm -, 12/13/201416 Access Type: Non-t unneled -, 12/13/201416 Orientation: Right -, 12/13/201416 Access Loca tion: Internal jugular -, 12/13/201416 Technique: Modified Seldinger;Anatom ical landmarks;Ultrasound Used -PP, 12/13/201416 Vessel Assessment (Ultrasoun d Only): Compressible -PP, 12/13/201416 Tunneled or Non-tunneled: Non-Tunnele d -PP, 12/13/201416 Estimated Blood Loss: Minimal -PP, 12/13/201416 Hemodialysis Properties Placement Date: 12/13/20 -PP, 12/13/201416 Placement Time: 1413 -PP, 12/13/201416 Inserted by: Dr Holly Allen -, 12/13/20 Lot Number: [id number]. 12 Fr x 20 cm -PP, 12/13/201416 Orientation: Right -PP, 12/13/201416 Access Location: Internal jugular -PP, 12/13/201416 Allen hnique: Modified Seldinger;Anatomical landmarks;Ultrasound Used -PP, 12/13/20 1 417 Vessel Assessment (Ultrasound Only): Compressible -PP, 12/13/201416 Tunn eled or Non-tunneled: Non-Tunneled -PP, 12/13/201416 Estimated Blood Loss: Mi nimal -PP, 12/13/201416 Row Name 1930 1914 1910 1899 During Hemodialysis Assessment Treatment Start Time 1910 -VS at 12/14/201925 Blood Flow Rate (mL/min) 300 mL/min -VS at 12/14/201931 300 mL/min -VS at 12/14/201926 300 mL/min -VS at 12/14/201925 Dialysate Flow Rate (mL/min) 600 -VS at 12/14/201931 600 -VS at 12/14/201926 600 -VS at 12/14/201925 Arterial Pressure (mmHg) -90 mmHg -VS at 12/14/201931 -90 mmHg -VS at 12/14/201926 -90 mmHg -VS at 12/14/201925 Venous Pressure (mmHg) 80 -VS at 12/14/201931 90 -VS at 12/14/201926 80 -VS at 12/14/201925 TMP (mmHg) 50 -VS at 12/14/201931 50 -VS at 12/14/201926 50 -VS at 12/14/201925 Ultrafiltration Rate (mL/min) 100 mL/min -VS at 12/14/201931 100 mL/min -VS at 12/14/201926 100 mL/min -VS at 12/14/201925 UF Removed (mL) 16 mL -VS at 12/14/201931 7 mL -VS at 12/14/201926 0 mL -VS at 12/14/201925 Blood Pump Running Yes -VS at 12/14/201931 Yes -VS at 12/14/201926 Yes -VS at 12/14/201925 Arteriovenous Lines Secure Yes -VS at 12/14/201931 Yes -VS at 12/14/201926 Yes -VS at 12/14/201925 Transducer Check Yes -VS at 12/14/201931 Yes -VS at 12/14/201926 Yes -VS at 12/14/201925 HD Access Check Yes -VS at 12/14/201931 Yes -VS at 12/14/201926 Yes -VS at 12/14/201925 Intra-Hemodialysis Comments Watching tv; even RR. No distress -VS at 12/14/201931 Tolerating start of tx; no distress -VS at 12/14/201926 Tx started -VS at 12/14/201925 Pre tx vitals -VS at 12/14/201906 Temp 36.8 C (98.2 F) -VS at 12/14/201906 Temp src Temporal -VS at 12/14/201906 Pulse 93 -VS at 12/14/201931 93 -VS at 12/14/201926 91 -VS at 12/14/201925 95 -VS at 12/14/201906 Resp 16 -VS at 12/14/201931 17 -VS at 12/14/201926 16 -VS at 12/14/201925 18 -VS at 12/14/201906 BP (!) 173/99 -VS at 12/14/201931 (!) 181/103 entry corretion -VS at 12/14/201930 (!) 181/103 -VS at 12/14/201925 (!) 176/100 -VS at 12/14/201906 SpO2 96 % -VS at 12/14/201906 O2 Device None (Room air) -VS at 12/14/201931 None (Room air) -VS at 12/14/201926 None (Room air) -VS at 12/14/201925 None (Room air) -VS at 12/14/201906 Hemodialysis Catheter Triple Lumen Non-tunneled Right Internal jugular Hemodialysis Properties Placement Date: 12/13/20 -PP, 12/13/201416 Placement Time: 1413 -PP, 12/13/201416 Inserted by: Dr Holly Allen -PP, 12/13/20 Lot Number: [id number]. 12 Fr x 20 cm -PP, 12/13/201416 Access Type: Non-t unneled -PP, 12/13/201416 Orientation: Right -PP, 12/13/201416 Access Loca tion: Internal jugular -PP, 12/13/201416 Technique: Modified Seldinger;Anatom ical landmarks;Ultrasound Used -PP, 12/13/201416 Vessel Assessment (Ultrasoun d Only): Compressible -PP, 12/13/201416 Tunneled or Non-tunneled: Non-Tunnele d -PP, 12/13/201416 Estimated Blood Loss: Minimal -PP, 12/13/201416 Hemodialysis Properties Placement Date: 12/13/20 -PP, 12/13/201416 Placement Time: 1413 -PP, 12/13/201416 Inserted by: Dr Holly Allen -, 12/13/20 Lot Number: [id number]. 12 Fr x 20 cm -PP, 12/13/201416 Orientation: Right -PP, 12/13/201416 Access Location: Internal jugular -PP, 12/13/201416 Allen hnique: Modified Seldinger;Anatomical landmarks;Ultrasound Used -, 12/13/20 1 417 Vessel Assessment (Ultrasound Only): Compressible -PP, 12/13/201416 Tunn eled or Non-tunneled: Non-Tunneled -PP, 12/13/201416 Estimated Blood Loss: Mi nimal -PP, 12/13/201416 User Chang (r) = Recorded By, (t) = Taken By, (c) = Cosigned By Initials Name PP Cynthia Ruiz RN VS MONTSE Sands CNA POST-TREATMENT (last 8 hours) Hemodialysis Post-Treatment - ThuDecember 14, 2020 Row Name 2030 Post-Hemodialysis Assessment Rinseback Volume (mL) 150 mL -VS at 12/14/202227 Total Liters Processed (L/min) 15.2 L/min -VS at 12/14/202227 Dialyzer Clearance Lightly streaked -VS at 12/14/202227 Duration of Treatment (minutes) 79 minutes -VS at 12/14/202227 Hemodialysis Intake (mL) 300 mL -VS at 12/14/202227 Hemodialysis Output (mL) 70 mL -VS at 12/14/202227 Patient Response to Treatment Catheter was not functioning properly. Unable to complete tx. -VS at 12/14/202227 Post-Hemodialysis Comments Blood returned, CVC packed. Report provided -VS at 12/14/202227 Weight 90.5 kg (199 lb 8.1 oz) -VS at 12/14/202227 HD Post-Treatment Hand-off Report Completed Yes -VS at 12/14/202227 Post Treatment Reported To Jarett Saini RN -VS at 12/14/202228 Hemodialysis Catheter Triple Lumen Non-tunneled Right Internal jugular Hemodialysis Properties Placement Date: 12/13/20 -, 12/13/201416 Placement Time: 1413 -, 12/13/201416 Inserted by: Dr Holly Allen -, 12/13/20 Lot Number: [id number]. 12 Fr x 20 cm -, 12/13/201416 Access Type: Non-t unneled -, 12/13/201416 Orientation: Right -, 12/13/201416 Access Loca tion: Internal jugular -, 12/13/201416 Technique: Modified Seldinger;Anatom ical landmarks;Ultrasound Used -, 12/13/201416 Vessel Assessment (Ultrasoun d Only): Compressible -, 12/13/201416 Tunneled or Non-tunneled: Non-Tunnele d -, 12/13/201416 Estimated Blood Loss: Minimal -, 12/13/201416 Site Assessment WDL;Dressing in Place -VS at 12/14/202228 Catheter Packing Heparin -VS at 12/14/202228 Catheter Packing Interventions Packed -VS at 12/14/202228 Arterial Port Packing Volume (mL) 1.2 mL -VS at 12/14/202228 Venous Port Packing Volume (mL) 1.2 mL -VS at 12/14/202228 Lumen 1 Status Capped;Heparin locked -VS at 12/14/202228 Lumen 1 Patency Brisk blood return (3ml in 3 sec);Flushes without resistance -VS at 12/14/202228 Lumen 2 Status Capped;Heparin locked -VS at 12/14/202228 Lumen 2 Patency Brisk blood return (3ml in 3 sec);Flushes without resistance -VS at 12/14/202228 Lumen 3 Status Capped;Normal saline locked -VS at 12/14/202228 Dressing Type Transparent;Sterile -VS at 12/14/202228 Dressing Status Checked;Intact -VS at 12/14/202228 Next Dressing Change Due 12/20/20 -VS at 12/14/202228 Needleless Connector Changed No -VS at 12/14/202228 Hemodialysis Properties Placement Date: 12/13/20 -, 12/13/201416 Placement Time: 1413 -, 12/13/201416 Inserted by: Dr Holly Allen -, 12/13/20 Lot Number: [id number]. 12 Fr x 20 cm -, 12/13/201416 Orientation: Right -, 12/13/201416 Access Location: Internal jugular -, 12/13/201416 Allen hnique: Modified Seldinger;Anatomical landmarks;Ultrasound Used -, 12/13/20 1 417 Vessel Assessment (Ultrasound Only): Compressible -PP, 12/13/201416 Tunn eled or Non-tunneled: Non-Tunneled -, 12/13/201416 Estimated Blood Loss: Mi nimal -, 12/13/201416 User Chang (r) = Recorded By, (t) = Taken By, (c) = Cosigned By Initials Name Cynthia Ruiz RN VS Saundra Levi RN HD ASSESSMENT (last 8 hours) Hemodialysis Assessment - ThuDecember 14, 2020 Row Name 2029 185 Nursing Assessment Checks Hepatitis Status Verified Yes -VS at 12/14/201909 Neurological Neuro (WDL) WDL -VS at 12/14/202229 WDL -VS at 12/14/201909 Level of Consciousness 0 -VS at 12/14/202229 0 -VS at 12/14/201909 Orientation Level Oriented to person;Oriented to place;Oriented to time;Flournoy ed to situation -VS at 12/14/202229 Oriented to person;Oriented to place;Oriented to time;Jaspal ented to situation -VS at 12/14/201909 Cognition No deficit noted -VS at 12/14/202229 No deficit noted -VS at 12/14/201909 Speech Clear -VS at 12/14/202229 Clear -VS at 12/14/201909 Pupil Assessment Equal -VS at 12/14/202229 Equal -VS at 12/14/201909 HEENT HEENT (WDL) X -VS at 12/14/202229 X -VS at 12/14/201909 R Eye Impaired vision;Requires visual aid -VS at 12/14/202229 Impaired vision;Requires visual aid -VS at 12/14/201909 L Eye Impaired vision;Requires visual aid -VS at 12/14/202229 Impaired vision;Requires visual aid -VS at 12/14/201909 Respiratory Respiratory (WDL) WDL -VS at 12/14/202229 WDL -VS at 12/14/201909 Head of Bed Elevation Self regulated;HOB 30 -VS at 12/14/202229 Self regulated;HOB 30 -VS at 12/14/201909 Respiratory Pattern Normal -VS at 12/14/202229 Normal -VS at 12/14/201909 Chest Assessment Chest expansion symmetrical -VS at 12/14/202229 Chest expansion symmetrical -VS at 12/14/201909 Bilateral Breath Sounds Clear;Equal -VS at 12/14/202229 Clear;Equal -VS at 12/14/201909 Peripheral Vascular Peripheral Vascular (WDL) WDL -VS at 12/14/202229 WDL -VS at 12/14/201909 Cyanosis Nailbed -VS at 12/14/202229 Nailbed -VS at 12/14/201909 Capillary Refill Less than/equal to 3 seconds (All extremities) -VS at 12/14/202229 Less than/equal to 3 seconds (All extremities) -VS at 12/14/201909 Pulses R radial;L radial;R dorsalis pedis;L dorsalis pedis -VS at 12/14/202229 R radial;L radial;R dorsalis pedis;L dorsalis pedis -VS at 12/14/201909 R Radial Pulse +2 -VS at 12/14/202229 +2 -VS at 12/14/201909 L Radial Pulse +2 -VS at 12/14/202229 +2 -VS at 12/14/201909 R Dorsalis Pedis Pulse +2 -VS at 12/14/202229 +2 -VS at 12/14/201909 L Dorsalis Pedis Pulse +2 -VS at 12/14/202229 +2 -VS at 12/14/201909 Cardiac Cardiac (WDL) WDL -VS at 12/14/202229 WDL -VS at 12/14/201909 Cardiac Regularity Regular -VS at 12/14/202229 Regular -VS at 12/14/201909 Heart Sounds S1, S2 -VS at 12/14/202229 S1, S2 -VS at 12/14/201909 Jugular Venous Distention (JVD) No -VS at 12/14/202229 No -VS at 12/14/201909 Cardiac Rhythm Normal Sinus Rhythm -VS at 12/14/202229 Normal Sinus Rhythm -VS at 12/14/201909 Video Game Maker On Yes -VS at 12/14/202229 Yes -VS at 12/14/201909 Telemetry Audible Yes -VS at 12/14/202229 Yes -VS at 12/14/201909 Telemetry Alarms Set Yes -VS at 12/14/202229 Yes -VS at 12/14/201909 Telemetry Box Number [id number] -VS at 12/14/202229 338 -VS at 12/14/201909 Bedside Online Merchandising Manager On No -VS at 12/14/202229 No -VS at 12/14/201909 Pacemaker No -VS at 12/14/202229 No -VS at 12/14/201909 Skin Assessment Integumentary (WDL) X -VS at 12/14/202229 X -VS at 12/14/201909 Generalized Skin Moisture Dryness -VS at 12/14/202229 Dryness -VS at 12/14/201909 Generalized Skin Temp Cool -VS at 12/14/202229 Cool -VS at 12/14/201909 Gastrointestinal Gastrointestinal (WDL) X -VS at 12/14/202229 X -VS at 12/14/201909 Abdomen Inspection Soft;Rounded -VS at 12/14/202229 Soft;Rounded -VS at 12/14/201909 Bowel Sounds (All Quadrants) Audible -VS at 12/14/202229 Audible -VS at 12/14/201909 Last BM Date 12/13/20 -VS at 12/14/20222912/13/20 -VS at 12/14/201909 Passing Flatus Yes -VS at 12/14/202229 Yes -VS at 12/14/201909 Pain Assessment Patient's Stated Pain Goal 2 -VS at 12/14/202229 2 -VS at 12/14/201909 Pain Assessment No/denies pain -VS at 12/14/202229 No/denies pain -VS at 12/14/201909 User Chang (r) = Recorded By, (t) = Taken By, (c) = Cosigned By Initials Name VS Saundra Levi RN * Holly Allen MD - 12/13/2020 2:23 PM CDT Procedures Procedure: R IJ 3 L temp HD catheter placement Interventional Radiologist: Holly Toussaint EBL: Minimal Findings: Tip in prox RA. Ready to use. Specimen: NA Diagnosis: Renal failure Electronically signed by Holly Allen MD 12/13/2020 2:23 PM documented in this encounter Consult Notes * Pino Fuchs RN - 12/21/2020 11:14 AM CDT Associated Order(s): CONSULT TO CARE PROGRESSION; CONSULT TO CARE PROGRESSION Consult received * DANIELA Lane - 12/19/2020 1:13 PM CDT Associated Order(s): IP CONSULT TO NEUROLOGY NEUROLOGY CONSULTATION Patient Name: Sommer Callahan : 1975 PCP: Carmelita Avila APRN Date of consultation: 12/19/2020 Requesting physician/service: Dr. Bruce Samayoa Reason for consult: Refractory headache HISTORY OF PRESENT ILLNESS History is provided via: Patient, chart review Visitors at the bedside: None Sommer Callahan is a 45 y.o., right-handed male who was admitted on 12/12/2020 with complaint of nausea, vomiting, and abdominal pain. Prior to that he was just di scharged on 11/28/2020 and was treated with antibiotics for UTI. In the ER, urin alysis was positive for leukocyte esterase, glucose, and nitrite with small bact eria. NT proBNP was 1190. Hemoglobin 8.4. Hematocrit 26. WBC 7.21. BUN 48, creatinine 4.4 and EGFR 18. Nephrology saw him in the ER and he was started on hemodialysis. He also had kidney biopsy. Neurology was consulted for evaluation of refractory headache. Patient reports that for the past 2 months, he has been getting frequent headaches, 5 days a wee k occurring randomly and headache can last up to 3 to 4 days. He reports accomp anying nausea, photosensitivity and osmophobia. The headache is felt on the lef t side involving the front, top and back of his head down to his neck. The pain is throbbing in nature. Denies associated eye ptosis, lacrimation, eye redness , nasal congestion or rhinorrhea. His headache began when he was in his 30s occ urring once or twice a month. He has never had a formal work-up. For the past 3 to 4 days, he has been having a persistent headache felt on the l eft side of his head involving the front top and back of his head. He also has neck pain. He does not have nausea but he reports photosensitivity. He reports marginal benefit from tramadol and Fioricet. He had a CT scan of the head on 04/15/2020 that showed old area of encephalomalac ia in the left parietal occipital region and some fluid in the left mastoid air cells. He gets neck pain but without radicular symptoms. He has seen an orthopedist in [facility] who recommended shots but he declined. He says he sleeps well. He had a sleep study done on September 14, 2020 at [facility] in [place]. Per report his AHI was 0.6. He was noted to have nocturnal hy poxemia with soft snoring. Oxygen at 1 to 2 L at bedtime was recommended. Chuyita ent is currently not on home oxygen for sleep use. REVIEW OF SYSTEMS 12 point review of systems negative except as noted in history of present illnes s PAST MEDICAL HISTORY Past Medical History: Diagnosis Date Hypertension Stroke (HCC) 03/02/2019 Left parieto-occipital infarct Type 1 diabetes mellitus (HCC) 1998 PAST SURGICAL HISTORY Past Surgical History: Procedure Laterality Date APPENDECTOMY IR NON TUNNELED DIALYSIS CATHETER PLACEMENT 12/13/2020 SINUS SURGERY TONSILLECTOMY US GUIDED BIOPSY KIDNEY 12/17/2020 FAMILY HISTORY Family History Problem Relation Age of Onset Diabetes Mother Hypertension Mother Hypertension Father Colon cancer Maternal Grandfather Stomach cancer Paternal Grandfather Family Status Relation Name Status Mother (Not Specified) Father (Not Specified) MGF (Not Specified) PGF (Not Specified) SOCIAL HISTORY Social History Socioeconomic History Marital status: Spouse name: Not on file Number of children: Not on file Years of education: Not on file Highest education level: Not on file Occupational History Not on file Tobacco Use Smoking status: Current Every Day Smoker Packs/day: 1.00 Years: 30.00 Pack years: 30.00 Smokeless tobacco: Current User Substance and Sexual Activity Alcohol use: Not Currently Drug use: Never Sexual activity: Not on file Other Topics Concern Not on file Social History Narrative Not on file Social Determinants of Health Financial Resource Strain: Difficulty of Paying Living Expenses: Food Insecurity: Worried About Running Out of Food in the Last Year: Ran Out of Food in the Last Year: Transportation Needs: Lack of Transportation (Medical): Lack of Transportation (Non-Medical): Physical Activity: Days of Exercise per Week: Minutes of Exercise per Session: Stress: Feeling of Stress : Social Connections: Frequency of Communication with Friends and Family: Frequency of Social Gatherings with Friends and Family: Attends Evangelical Services: Active Member of Clubs or Organizations: Attends Club or Organization Meetings: Marital Status: Intimate Partner Violence: Fear of Current or Ex-Partner: Emotionally Abused: Physically Abused: Sexually Abused: OUTPATIENT MEDICATIONS Current Discharge Medication List CONTINUE these medications which have NOT CHANGED Details ALPRAZolam (XANAX) 0.5 MG tablet Take 0.5 mg by mouth nightly as needed. amLODIPine (NORVASC) 5 MG tablet Take 5 mg by mouth daily. aspirin 81 MG chewable tablet Chew 81 mg daily. atorvastatin (LIPITOR) 20 MG tablet Take 20 mg by mouth nightly. caRVEDILoL (COREG) 12.5 MG tablet Take 0.5 tablets (6.25 mg total) by mouth 2 (t wo) times a day with meals. Qty: 60 tablet, Refills: 2 cholecalciferol, vitamin D3, 1,000 units(25 mcg) tablet Take 2,000 Units by mout h daily. cloNIDine HCL (CATAPRES) 0.1 mg tablet Take 1 tablet (0.1 mg total) by mouth 3 ( three) times a day. Hold till follow up with physician. cyanocobalamin (VITAMIN B-12) 50 mcg tablet Take 50 mcg by mouth daily. cyclobenzaprine (FLEXERIL) 10 MG tablet Take 10 mg by mouth 2 (two) times a day as needed for muscle spasms. gabapentin (NEURONTIN) 400 MG capsule Take 800 mg by mouth 3 (three) times a day . hydrALAZINE (APRESOLINE) 100 MG tablet Take 1 tablet (100 mg total) by mouth spencer ry 8 (eight) hours while awake. Qty: 90 tablet, Refills: 2 insulin detemir U-100 (LEVEMIR) 100 unit/mL injection Inject 10 Units under the skin nightly. Qty: 10 mL, Refills: 1 insulin lispro (HUMALOG) 100 unit/mL injection Inject 1-10 Units under the skin 3 (three) times a day before meals. Qty: 10 mL, Refills: 1 loratadine (CLARITIN) 10 mg tablet Take 10 mg by mouth daily as needed for aller gies. !! methylphenidate HCl (RITALIN) 10 MG tablet Take 10 mg by mouth 2 (two) times a day. !! methylphenidate HCl (RITALIN) 5 MG tablet Take 5 mg by mouth every morning. omega 3 fish oil (SEA OMEGA) DHA 200 mg-EPA 300 mg (1,000 mg) capsule Take 1 cap gallito by mouth daily. potassium chloride (KLOR-CON) 10 MEQ CR tablet Take 20 mEq by mouth 2 (two) time s a day. QUEtiapine (SEROQUEL) 50 MG tablet Take 50 mg by mouth nightly. sertraline (ZOLOFT) 100 mg tablet Take 100 mg by mouth daily. trazodone (DESYREL) 100 MG tablet Take 100 mg by mouth nightly. !! - Potential duplicate medications found. Please discuss with provider. CURRENT MEDICATIONS amLODIPine 10 mg Oral Daily atorvastatin 20 mg Oral Nightly calcium acetate(phosphat bind) 1,334 mg Oral TID with meals caRVEDILoL 6.25 mg Oral BID with meals cefazolin 1 g Intravenous Daily gabapentin 200 mg Oral TID heparin (porcine) 1,000-5,000 Units Intra-Catheter Once in dialysis hydrALAZINE 100 mg Oral Q8H insulin glargine 8 Units Subcutaneous Nightly insulin lispro 2-7 Units Subcutaneous 4 times daily before meals and nightl y lactobacillus 1 capsule Oral Daily multiple vitamins B complex with C 1 tablet Oral QPM QUEtiapine 50 mg Oral Nightly sertraline 100 mg Oral Daily trazodone 100 mg Oral Nightly acetaminophen, ALPRAZolam, mftylhfmrr-pseytdcmmlitl-kygxdhoo, cyclobenzaprine, d extrose 50%, glucagon OR glucagon, glucose, HYDROcodone-acetaminophen, magne sium sulfate, ondansetron, tramadoL ALLERGIES Allergies Allergen Reactions Clindamycin Dizziness, Hypotension, Syncope and Hives Varenicline Hallucinations Patient notes experiencing hallucinations and mood changes w/ this medication. Opioids - Morphine Analogues Pt states morphine makes him aggressive and doesn't like taking it Metformin Abdominal Pain and Nausea And Vomiting Zolpidem Other reaction(s): sleep walking, UNKNOWN EXAMINATION Patient Vitals for the past 4 hrs: BP Temp Temp src Pulse Resp Weight 12/19/20 1300 128/74 80 18 90.1 kg (198 lb 10.2 oz) 12/19/20 1255 124/73 37.1 C (98.8 F) Oral 77 18 12/19/20 1245 (!) 144/79 94 18 12/19/20 1230 (!) 142/72 93 18 12/19/20 1215 (!) 153/86 94 18 12/19/20 1200 (!) 140/79 94 18 12/19/20 1145 133/77 98 18 12/19/20 1130 136/79 96 18 12/19/20 1115 128/76 100 18 12/19/20 1100 126/68 98 18 12/19/20 1045 137/75 100 18 12/19/20 1030 129/72 (!) 102 18 12/19/20 1015 131/73 100 18 12/19/20 1000 135/76 101 18 12/19/20 0954 (!) 140/82 94 18 12/19/20 0942 (!) 141/82 37.3 C (99.1 F) Oral 97 18 92.1 kg (203 lb 0.7 oz) Systolic (24hrs), Av , Min:124 , Max:165 Diastolic (24hrs), Av, Min:68, Max:98 Ht Readings from Last 1 Encounters: 12/13/20 1.778 m (5' 10") Wt Readings from Last 1 Encounters: 12/19/20 90.1 kg (198 lb 10.2 oz) Body mass index is 28.5 kg/m. General: Mr. Callahan is a healthy, well-nourished appearing male in no acute distress. Head: Oropharynx clear. Head normocephalic, atraumatic. Mallampati 4 Extremities: No cyanosis or edema. No clear skin lesions noted. Neck: head forward position, internal rotation of shoulders, left suboccipital t enderness, bilateral cervical paraspinous muscle spasm and tenderness worse on t he left and bilateral shoulder muscle spasm and tenderness. Mental status, cognition, and cortical functions: Mental status (including orientation to person, place, and time; recent and r emote memory; attention and concentration; general fund of knowledge) is intact based on conversation and detailed medical history. Language is fluent with intact comprehension Speech is clear and without dysarthria. Cranial nerves: Pupils are equal, round, and reactive to light. Visual albert are full. Extraocular eye movements are intact in all directions. No nystagmus on eye movements. Facial sensation is intact to light touch throughout. Muscles of facial expression are symmetric at rest and with activation. No weakness on eyelid or mouth closure. Hearing is intact to finger rubbing bilaterally. Palate elevates symmetrically. Tongue protrudes in the midline and has full excursions. [place] is equal Shoulder shrug is equal Motor: Strength on confrontational testing is 5/5 with bilateral handgrip, elbow fle xion extension, shoulder abduction, hip flexion, knee extension, plantar flexion and ankle dorsiflexion No pronator drift was observed. Gait and coordination: Gait was not tested [id number] intact bilaterally Rapid alternating movements in the upper extremities (finger tapping) are nor mal. Rapid alternating movements in the lower extremities (toe tapping) are normal . Reflexes (right/left): Biceps: 2/2 Triceps: 2/2 Brachioradialis: 2/2 Patellae: 0 /2 Achilles: 0/0 Plantar: mute bilaterally. Sensation: Light touch sensation is intact throughout. Pain (pinprick) sensation is decreased in bilateral lower extremities up to t he knees STUDIES REVIEWED CT Abdomen Pelvis wo contrast Result Date: 11/26/2020 1. Moderate bladder wall thickening is nonspecific. Correlate clinically as to p ossible cystitis. 2. Tiny nonobstructing calculus in the lower pole of the left kidney. Otherwise normal kidneys bilaterally. 3. Mild retroperitoneal aortic lym phadenopathy. These are nonspecific and could be reactive.. CT Head wo contrast Result Date: 12/13/2020 Impression: 1. Old area of encephalomalacia in the left parietal-occipital regio n. 2. There is some fluid in the left mastoid air cells. One or more of the foll owing dose reduction techniques were utilized: *Automated exposure control (AEC) *Adjustment of mA and/or kV according to patient size -Use of iterative reconst ruction technique -CT scan done according to AURORARA, or AUBREY/IMAGE GENTLY IR Non Tunneled Dialysis catheter placement Result Date: 12/13/2020 Successful placement of right internal jugular triple-lumen temporary hemodialys is catheter. US Duplex Renal complete Result Date: 11/28/2020 Impression: No sonographic findings to suggest renal artery stenosis or vascular pathology such as aneurysm. Please see report of ultrasound of the kidneys of [facility] 2020 for further discussion. US Renal complete Result Date: 11/26/2020 1. There is a benign-appearing 1.3 cm left renal cyst. 2. No hydronephrosis. 3. Abnormal urinary bladder with wall thickening and increased vascularity. This is nonspecific. Cystitis is not excluded. US Scrotal Result Date: 12/13/2020 1. 4 mm x 3 mm x 4 mm right epididymal cyst. 2. Otherwise, negative ultrasound o f the scrotum and testicles bilaterally. XR Chest 2 views (PA and lateral) Result Date: 12/18/2020 Moderate acute pneumonia left lower lobe with small effusion. Mild parahilar ate lectasis on the right. Double-lumen catheter placement from a jugular approach w ith the tip overlying the right atrium without pneumothorax on the right XR Chest single view frontal Result Date: 12/12/2020 No evidence of acute cardiopulmonary disease. US Guided Biopsy Kidney Addendum Date: 12/17/2020 ++++++++++++++++++++++++++++++++++++++ADDENDUM+++++++++++++++++++++++++++++ Ad dendum: I was called by nursing report left flank pain and hematuria. I checked on the patient twice this afternoon. He appears to have moderate hematuria with dark reddish dilute urine. Nursing reported very small clots in the bottom of hi s urine bottle although I was unable to visualize these. The patient is able to urinate. The patient does not subjectively appear to be in distress. He does rep ort moderate left flank pain. At this point, we will encourage fluid intake and monitor. Pain is not increasing per report. Hematuria is a fairly frequent occur rence following renal biopsy and tends to clear. If it is not clearing or pain i s increasing, we may pursue additional imaging to assess for perinephric hematom a or for the amount of blood in the renal collecting system. If possible, we wou ld like to avoid embolization. This was discussed with the patient and his quest ions were answered. Signed (Authenticated, Released) Date/Time 12/17/2020 170 +++++++++++++++++++++++++++++++++++++++++++++++++++++++++++++++++++++++++++ Result Date: 12/17/2020 Successful ultrasound-guided core needle biopsy of the left kidney as described. Preprocedure: Risk, benefits, and alternatives were discussed in detail with th e patient. He agreed to proceed. Procedural pause performed in the presence of a ll assisting personnel. Conscious sedation supplied by a nurse under my supervis ion (a trained professional in conscious sedation) for 20 minutes with appropria te physiologic monitoring including heart rate monitor, blood pressure monitor, oxygen saturation monitor, and continuous nursing assessment. Conscious sedation achieved with Versed and fentanyl. IR Tunneled Dialysis catheter check Result Date: 12/17/2020 Successful repositioning of right IJ temporary hemodialysis catheter. Echo Congenital Complete with Doppler and Color Flow Result Date: 11/27/2020 1. Lower limits normal left ventricular systolic function, with a calculated e jection fraction by 3D echo of 53%. 2. Moderate to severe concentric left vent ricular hypertrophy. 3. Abnormal global longitudinal myocardial strain. -14 (E piq) 4. No significant valvular abnormalities. 5. No previous study availabl e for comparison. Yao Gomez MD (Electronically Signed) Final Date: 07 November 2020 11:06 No results found. LABS REVIEWED Most Recent Result within the last 7 days Lab Units 12/19/20 0330 12/12/20 1816 WBC TH/uL 8.24 7.21 HEMOGLOBIN g/dL 7.2* 8.4* HEMATOCRIT % 22* 26* PLATELET COUNT TH/uL 210 291 % SEGMENTED NEUTROPHILS % 65 69 % LYMPHOCYTES % 17 15 % MONOCYTES % 14* 11 % EOSINOPHILS % 3 4 % BASOPHILS % 1 1 SODIUM MEQ/L 133 140 POTASSIUM MEQ/L 4.4 5.1 CHLORIDE MEQ/L 101 119* CARBON DIOXIDE MEQ/L 31 18* BLOOD UREA NITROGEN mg/dL 25 48* GLUCOSE mg/dL 140* 135* CREATININE mg/dL 3.6* 4.4* CALCIUM mg/dL 7.8* 7.7* PHOSPHORUS mg/dL 4.0 -- ALBUMIN g/dL 2.3* 3.0* PROTEIN TOTAL SERUM g/dL -- 6.0 ALKALINE PHOSPHATASE IU/L -- 74 ALANINE AMINOTRANSFERASE IU/L -- 20 ASPARTATE AMINOTRANSFERASE IU/L -- 21 No lab components to display IMPRESSION 1. Mr. Barger is a 45-year-old right-handed male with persistent left-sided hea dache with photophobia that began 3 to 4 days ago with minimal benefit from Claudia icet, hydrocodone and tramadol. He started getting headaches in his 30s occurri ng once or twice a month but his headache increased in the past 2 months occurri ng 5 days a week lasting up to 3 to 4 days with accompanying nausea, photophobia and osmophobia, felt on the left side at the front, top and back headache with left-sided neck pain. He has never had a formal work-up for his headache. CT scan of the brain showed old area of encephalomalacia in the left parietal -occipital region. 2. Neck pain. Per patient, his orthopedist in [facility] told him that his disc is messed up and recommended shots but he declined. On clinical examin ation, he has a head forward position, internal rotation of shoulders, left subo ccipital tenderness, bilateral cervical paraspinous muscle spasm and tenderness worse on the left and bilateral shoulder muscle spasm and tenderness. 3. 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 No residual from his stroke. On aspirin 81 mg daily and atorvastatin 20 mg. Treated and evaluated at [facility]. Work-up at [facility] MRI head was obtained and showed moderate-sized acute or early subacute posterio r left parieto-occipital infarct (posterior cerebral watershed distribution) wit h associated petechial hemorrhage and mixed cytotoxic and vasogenic edema. CTA head and neck was obtained and was unremarkable for significant intracranial atherosclerosis. 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 TTE/TRINA were obtained and showed: EF 65%, no evidence of left atrial enlargement or Afib, no evidence of valvular thrombus, small PFO which is likely clinically insignificant since patient has other uncontrolled vascular risk factors to exp elmira his stroke. Hypercoagulable workup was negative. 4. History of provoked seizures felt secondary to metabolic abnormalities and s troke on 03/02/2019. Treated with Keppra 500 mg twice a day which has been discon tinued. 5. Advanced diabetic nephropathy. 6. Type 1 diabetes mellitus. A1c 12.4 on 11/26/2020 7. Urinary tract infection. 8. Hypertension 9. Anemia. Hemoglobin 7.2 hematocrit 22 RECOMMENDATIONS Per discussion with staff, Dr. Nevarez, give Depacon 500 mg IV x1. Outpatient physical therapy for neck pain Holley Zavala, 12/19/2020 1:13 PM Voalte [phone] PPE Statement: DANIELA Lane used Yellow precautions (Level 1 mask worn ov er level 3 mask and gloves). Principal Problem: Acute kidney injury superimposed on chronic kidney disease (HCC) Active Problems: Type 1 diabetes mellitus with hyperglycemia (HCC) Hypertension Urinary tract infection without hematuria Anemia Nephrolithiasis Dyslipidemia Nephrotic syndrome Headache, unspecified headache type * Kun Stanton MD - 12/13/2020 4:24 PM CDT Associated Order(s): IP CONSULT TO INFECTIOUS DISEASE [facility] Infectious Disease Comprehensive Consultation Note PATIENT NAME: Sommer Callahan ATTENDING PHYSICIAN: Bruce Samayoa MD DATE: 12/13/2020 AGE: 45 y.o. :[birth year] ADMISSION DATE: 12/12/2020 PRIMARY CARE PROVIDER: Carmelita Avila APRN CC: Chief Complaint Patient presents with Abdominal Pain pt reports having N/V/D intermittenly for the past couple of weeks and that garcia s gotten worse over the past two days and he is having mid abd pain as well. REASON FOR CONSULT: UTI REFERRING PHYSICIAN: Dr. Samayoa HISTORY OF PRESENT ILLNESS: Sommer Callahan is a 45 y.o. male who is being hospitalized today for management of acute kidney injury. The patient was hospitalized here from 11/25/2020 to for management o f hyperglycemia and acute kidney injury. A urine culture on 11/28 grew methicill in susceptible Staph aureus. He was treated with oral ciprofloxacin after disch arge from the hospital. For the past several days the patient has had progressively worsening weakness a nd malaise, associated with right flank pain. He notes intermittent dysuria. H e has not had fever or chills. He returned to the emergency department today. Temperature was 36.8 degrees, white blood cell count 7210, creatinine 4.3. Urin alysis showed pyuria and bacteriuria. A temporary dialysis catheter was placed in anticipation of initiation of hemodialysis tomorrow. - Negative except History obtained from chart review and patient (family) and discussion with [facility] staff Detailed chart review performed outside records reviewed and summarized in HPI a nd results section. PROBLEM LIST: Principal Problem: Acute kidney injury superimposed on chronic kidney disease (HCC) Active Problems: Type 1 diabetes mellitus with hyperglycemia (HCC) Hypertension Urinary tract infection without hematuria Anemia Nephrolithiasis Dyslipidemia Nephrotic syndrome Headache, unspecified headache type PAST MEDICAL HISTORY: Past Medical History: Diagnosis Date Hypertension Stroke (HCC) 03/02/2019 Left parieto-occipital infarct Type 1 diabetes mellitus (HCC) 1998 PAST SURGICAL HISTORY: Past Surgical History: Procedure Laterality Date APPENDECTOMY SINUS SURGERY TONSILLECTOMY ALLERGIES: Allergies Allergen Reactions Clindamycin Dizziness, Hypotension, Syncope and Hives Varenicline Hallucinations Patient notes experiencing hallucinations and mood changes w/ this medication. Opioids - Morphine Analogues Pt states morphine makes him aggressive and doesn't like taking it Metformin Abdominal Pain and Nausea And Vomiting Zolpidem Other reaction(s): sleep walking, UNKNOWN FAMILY HISTORY: Family History Problem Relation Age of Onset Diabetes Mother Hypertension Mother Hypertension Father Colon cancer Maternal Grandfather Stomach cancer Paternal Grandfather SOCIAL HISTORY: Social History Socioeconomic History Marital status: Spouse name: Not on file Number of children: Not on file Years of education: Not on file Highest education level: Not on file Occupational History Not on file Tobacco Use Smoking status: Current Every Day Smoker Packs/day: 1.00 Years: 30.00 Pack years: 30.00 Smokeless tobacco: Current User Substance and Sexual Activity Alcohol use: Not Currently Drug use: Never Sexual activity: Not on file Other Topics Concern Not on file Social History Narrative Not on file Social Determinants of Health Financial Resource Strain: Difficulty of Paying Living Expenses: Food Insecurity: Worried About Running Out of Food in the Last Year: Ran Out of Food in the Last Year: Transportation Needs: Lack of Transportation (Medical): Lack of Transportation (Non-Medical): Physical Activity: Days of Exercise per Week: Minutes of Exercise per Session: Stress: Feeling of Stress : Social Connections: Frequency of Communication with Friends and Family: Frequency of Social Gatherings with Friends and Family: Attends Evangelical Services: Active Member of Clubs or Organizations: Attends Club or Organization Meetings: Marital Status: Intimate Partner Violence: Fear of Current or Ex-Partner: Emotionally Abused: Physically Abused: Sexually Abused: REVIEW OF SYSTEMS: A 12 point review of systems has been performed. Pertinent positives and negativ es listed in HPI otherwise negative in details. Diabetes Profile: Lab Results Component Value Date HGBA1C 12.4 (H) 11/26/2020 GLU 142 (H) 12/13/2020 Liver Profile: Lab Results Component Value Date ALT 20 12/12/2020 AST 21 12/12/2020 ALKPHOS 74 12/12/2020 Hematologic Profile: Most Recent Result within the last 7 days Lab Units 12/13/20 0312 12/12/20 1816 WBC TH/uL 6.31 7.21 HEMOGLOBIN g/dL 7.6* 8.4* HEMATOCRIT % 24* 26* PLATELET COUNT TH/uL 241 291 Metabolic Profile: Most Recent Result within the last 7 days Lab Units 12/13/20 0312 12/12/20 1816 SODIUM MEQ/L 138 140 POTASSIUM MEQ/L 4.6 5.1 CHLORIDE MEQ/L 119* 119* CARBON DIOXIDE MEQ/L 16* 18* BLOOD UREA NITROGEN mg/dL 47* 48* CREATININE mg/dL 4.3* 4.4* Inflammatory Profile: No lab components to display Imaging Profile: XR Chest single view frontal Result Date: 12/12/2020 No evidence of acute cardiopulmonary disease. Images reviewed independently by me. Most Recent Result within the last 7 days Lab Units 12/12/20 1747 MICROSCOPIC WBC URINE /hpf >40* LEUKOCYTE ESTERASE Positive* NITRITE URINE Positive* BACTERIA Small* MICROBIOLOGY No results found for this visit on 12/12/20. SEROLOGY ANTIBIOTICS: PHYSICAL EXAM: Temp (24hrs), Av.7 C (98.1 F), Min:36.6 C (97.9 F), Max:36.9 C (98 .4 F) Vitals: 12/13/20 1204 12/13/20 1456 BP: (!) 150/95 Pulse: (!) 103 Resp: Temp: 36.9 C (98.4 F) SpO2: Weight: 91 kg (200 lb 9.9 oz) Height: 1.778 m (5' 10") Wt Readings from Last 1 Encounters: 12/13/20 91 kg (200 lb 9.9 oz) General Appearance: no acute distress. Eyes: no scleral icterus, or conjunctival hemorrhage. HENT: no sinus tenderness, no oral thrush. SKIN: no rashes or pathologic lesions. Lymphatic: no palpable cervical axillary or inguinal lymph nodes. Heart: Normal s1 s2, no audible murmurs. Lungs: clear to auscultations without wheezes or rales. MUSCULOSKELETAL:examined joints without effusion, normal ROM. NEUROLOGIC: grossly non focal. : no suprapubic tenderness or fullness, no external lesions, no CVA tenderness . ABDOMEN: soft, non tender, no rebound or guarding present bowel sounds, no palpa ble masses. Right CVA tenderness PSYCHIATRIC: alert, oriented, no changes of anxiety or depression. ASSESSMENT/PLAN: 1. Pyelonephritis of right kidney, presumed methicillin susceptible Staphylococ cus aureus infection 2. Poorly controlled diabetes mellitus 3. Acute kidney injury superimposed on chronic kidney disease 4. History of cerebrovascular accident (remote) 5. Status post appendectomy 6. Intolerance of clindamycin Plan 1. Discontinue ceftriaxone 2. Begin cefazolin (dose reduced for level of renal function) 3. Anticipate that he will need a severalday course of intravenous antibioti c therapy Discussed with his Thank you for asking me to see Mr. Callahan. I will follow. Electronically signed by Kun Stanton 12/13/2020 4:24 PM * Mary Langley MD - 12/13/2020 4:10 PM CDT Associated Order(s): IP CONSULT TO HEMATOLOGY/ONCOLOGY HEMATOLOGY/ONCOLOGY CONSULTATION NOTE NAME: Sommer Callahan AGE: 45 y.o. : 1975 ADMISSION DATE: 12/12/2020 PRIMARY CARE PROVIDER: Carmelita Avila APRN ATTENDING PHYSICIAN: Bruce Samayoa MD REASON FOR CONSULT I was asked to see Sommer Callahan by Bruce Samayoa MD for Lupus anticoagulant positi ve. HISTORY OF PRESENT ILLNESS Mr. Sommer Callahan is a 45 y.o. years old gentleman who recently had seen his neph rologist for recent onset renal failure. Work-up has been ongoing for this gent cherri and now he presents to the emergency room with abdominal pain. On our vis it today he is resting in bed with his by his side. He is feeling fatigued and feels that his abdominal pain symptoms are stable to improved. He notes th at his energy level is diminished. In addition he is also been feeling sick to his stomach with some ongoing vomiting over the last few days. He also notes fo ul-smelling urine. No other complaints such as fevers, chills, night sweats, cou gh, chest pain, dyspnea at rest, abdominal pain, diarrhea, or other GI/ sympto ms. PAST MEDICAL HISTORY Past Medical History: Diagnosis Date Hypertension Stroke (HCC) 03/02/2019 Left parieto-occipital infarct Type 1 diabetes mellitus (HCC) 1998 PAST SURGICAL HISTORY Past Surgical History: Procedure Laterality Date APPENDECTOMY SINUS SURGERY TONSILLECTOMY MEDICATIONS amLODIPine 5 mg Oral Daily atorvastatin 20 mg Oral Nightly caRVEDILoL 6.25 mg Oral BID with meals cefTRIAXone 1,000 mg Intravenous Daily gabapentin 200 mg Oral TID heparin (porcine) 1,000-5,000 Units Intra-Catheter Once in dialysis hydrALAZINE 100 mg Oral Q8H insulin detemir U-100 10 Units Subcutaneous Nightly insulin lispro 2-7 Units Subcutaneous 4 times daily before meals and nightl y QUEtiapine 50 mg Oral Nightly sertraline 100 mg Oral Daily trazodone 100 mg Oral Nightly ALLERGIES Clindamycin, Varenicline, Opioids - morphine analogues, Metformin, and Zolpidem FAMILY HISTORY Family History Problem Relation Age of Onset Diabetes Mother Hypertension Mother Hypertension Father Colon cancer Maternal Grandfather Stomach cancer Paternal Grandfather SOCIAL HISTORY Social History Socioeconomic History Marital status: Spouse name: Not on file Number of children: Not on file Years of education: Not on file Highest education level: Not on file Occupational History Not on file Tobacco Use Smoking status: Current Every Day Smoker Packs/day: 1.00 Years: 30.00 Pack years: 30.00 Smokeless tobacco: Current User Substance and Sexual Activity Alcohol use: Not Currently Drug use: Never Sexual activity: Not on file Other Topics Concern Not on file Social History Narrative Not on file Social Determinants of Health Financial Resource Strain: Difficulty of Paying Living Expenses: Food Insecurity: Worried About Running Out of Food in the Last Year: Ran Out of Food in the Last Year: Transportation Needs: Lack of Transportation (Medical): Lack of Transportation (Non-Medical): Physical Activity: Days of Exercise per Week: Minutes of Exercise per Session: Stress: Feeling of Stress : Social Connections: Frequency of Communication with Friends and Family: Frequency of Social Gatherings with Friends and Family: Attends Evangelical Services: Active Member of Clubs or Organizations: Attends Club or Organization Meetings: Marital Status: Intimate Partner Violence: Fear of Current or Ex-Partner: Emotionally Abused: Physically Abused: Sexually Abused: REVIEW OF SYSTEMS A full 12-point review of systems was performed and was negative except as docum ented in the HPI. VITALS BP (!) 150/95 | Pulse (!) 103 | Temp 98.4 F (Oral) | Resp 18 | Ht 1.778 m (5' 10") | Wt 91 kg (200 lb 9.9 oz) | SpO2 96% | BMI 28.79 kg/m EXAM General: Tired appearance. No apparent distress, alert and oriented x 3. Psych: Mood is diminished, affect is normal. CV: Tachycardic. Extremities: No peripheral edema. Lungs: Clear. Good air movement. Respiratory effort is unlabored. Abd: Positive bowel sounds. Soft. Tender to palpation. Oropharynx: Clear. No thrush. Neck: Supple. Lymphatics: No cervical or supraclavicular LAD. Skin: Warm and dry. No abnormalities to palpation. Eyes: Normal sclera, nonicteric. Neuro: Nonfocal. Equal strength in all extremities. LABS No lab components to display Most Recent Result within the last 7 days Lab Units 12/13/20 0312 12/12/20 1816 SODIUM MEQ/L 138 140 POTASSIUM MEQ/L 4.6 5.1 CHLORIDE MEQ/L 119* 119* CARBON DIOXIDE MEQ/L 16* 18* BLOOD UREA NITROGEN mg/dL 47* 48* CREATININE mg/dL 4.3* 4.4* GLUCOSE mg/dL 142* 135* CALCIUM mg/dL 7.6* 7.7* Most Recent Result within the last 7 days Lab Units 12/13/20 0312 12/12/20 1816 WBC TH/uL 6.31 7.21 HEMOGLOBIN g/dL 7.6* 8.4* HEMATOCRIT % 24* 26* PLATELET COUNT TH/uL 241 291 No lab components to display No results found for this or any previous visit. No results found for this or any previous visit. Results for orders placed or performed during the hospital encounter of 11/25/20 Culture, Urine Specimen: Clean Voided Urine Result Value Ref Range Isolate 1 >100,000 Cfu/ml (A) Isolate 1 Methicillin Sensitive Staphylococcus aureus (A) Susceptibility Methicillin sensitive staphylococcus aureus - (no method available) OXACILLIN 0.5 Sensitive VANCOMYCIN <=0.5 Sensitive LINEZOLID 2 Sensitive NITROFURANTOIN <=16 Sensitive SEPTRA/BACTRIM <=10 Sensitive IMAGING I reviewed the chest x-ray, CT abdomen pelvis and renal ultrasound done on and November: 2020 XR Chest single view frontal Result Date: 12/12/2020 No evidence of acute cardiopulmonary disease. ASSESSMENT AND PLAN #1 Lupus anticoagulant #2 renal dysfunction #3 retroperitoneal adenopathy Patient with history of lupus anticoagulant but no significant history of any ve nous thromboembolic events. He does provide history of cerebrovascular accident a year ago. Also family history of what appears to be DVT in his mother. At t he present time he is on aspirin. In terms of his lupus anticoagulant we do not see the need for any additional anticoagulation at this point other than standa rd DVT prophylaxis while in hospital. Also we do not see any overt evidence of thrombosis as the cause for his renal dysfunction based on the renal ultrasound. In regards to the retroperitoneal adenopathy this appears to be reactive on the CT imaging. There does not appear to be any urinary tract obstruction as a resu lt of the adenopathy. Likelihood of malignancy is low but can consider CT chest without contrast and testicular ultrasound to rule out malignancy. Plan and fi ndings reviewed with the patient as well as his . Thank you for this consul tation and we will continue to follow. Electronically signed by Mary Langley MD 12/13/2020 * Nuvia Lagos NP - 12/13/2020 8:30 AM CDT Associated Order(s): IP CONSULT TO UROLOGY [facility] UROLOGY CONSULT NOTE Patient: Sommer Callahan Age: 45 y.o. : 1975 PRIMARY CARE PROVIDER: Carmelita Avila APRN ATTENDING PHYSICIAN: Bruce Samayoa MD REFERRING PHYSICIAN: Carlos Hsieh MD CONSULTING PHYSICIAN: Nuvia Lagos APRN DATE OF CONSULTATION: 12/13/2020 8:30 AM REASON FOR CONSULTATION: Staph in the urine, cystitis on CT CHIEF COMPLAINT: Abdominal Pain HISTORY OF PRESENT ILLNESS: Patient is a 45 year-old male who presented to [facility] ER 12/12/2020 with complain o f abdominal pain and intermittent nausea/vomiting/diarrhea for the past few week s. He was admitted for UTI and ARF superimposed on CKD. Past Medical History: Dyslipidemia, Type 1 DM, HTN, CKD/nephrotic syndrome, Depr ession, Tobacco Abuse Urology consulted for further evaluation and management of recurrent UTI. Rashida belcher was recently presently hospitalized here at [facility] from 11/25/2020 to 11/28/2020 f or VALERIE. Urine culture was positive for >100K CFU/mL MSSA, treated with Cipro 500mg PO BID x 10 days. Renal US and NCCT ABD/Pelvis unremarkable from urologic standpoint with exception of moderate bladder wall thickening consistent with cystitis and tiny left lower pole calculus. Patient states he has previously followed with urologist Dr. Madrig[place] in [place] for history of kidney stones. Last office visit approximately 7 years ago. He has sp ontaneously passed 2 stones in the past, last spontaneous stone passage a few mo nths ago. He has required right ureteroscopy 7 years ago for 7mm stone, no addit ional stone procedures. Does admit to 1-2 UTIs per year but otherwise no histor y of recurrent UTIs or pyelonephritis. No additional urologic history of BPH, O AB or any other pertinent urologic condition. Denies personal family history of urologic malignancies. No additional urologic procedure history. Patient reports occasional dysuria and bladder pain often associated with UTIs. Denies current symptoms gross hematuria, flank pain, sensation of incomplete michaelle dder emptying, urinary urgency/frequency, or incontinence. Does admit to general ized abdominal pain, nausea, vomiting, diarrhea. No fever but does admit to chi lls. REVIEW OF SYSTEMS: : see HPI Constitutional: No fever or fatigue. + chills Head: No Headaches Eyes: No visual changes Ears: No changes in hearing Pulm: No shortness of breath CV: No chest pain or palpitations GI: + nausea, vomiting, & diarrhea Skin: No rashes Heme: No easy bruising Neuro: No numbness, tingling Musculoskeletal: No weakness MEDICAL HISTORY: Past Medical History: Diagnosis Date Hypertension Stroke (HCC) 03/02/2019 Left parieto-occipital infarct Type 1 diabetes mellitus (HCC) 1998 SURGICAL HISTORY: Past Surgical History: Procedure Laterality Date APPENDECTOMY SINUS SURGERY TONSILLECTOMY PRIOR TO ADMISSION MEDICATIONS: (Not in a hospital admission) MED LIST: Current Facility-Administered Medications Medication Dose Route Frequency Provider Last Rate Last Admin acetaminophen (TYLENOL) tablet 650 mg 650 mg Oral Q6H PRN Mickelle T Viri man, DO 650 mg at 12/13/20 0440 ALPRAZolam (XANAX) tablet 0.5 mg 0.5 mg Oral Nightly PRN Krys Man MD amLODIPine (NORVASC) tablet 5 mg 5 mg Oral Daily Krys Man MD 5 mg a t 12/13/20902 atorvastatin (LIPITOR) tablet 20 mg 20 mg Oral Nightly Krys Man MD 20 mg at 12/12/202142 caRVEDILol (COREG) tablet 6.25 mg 6.25 mg Oral BID with meals Krys Man MD 6.25 mg at 12/13/20902 cefTRIAXone (ROCEPHIN) injection 1,000 mg 1,000 mg Intravenous Daily Stephe natacha Kramer MD 1,000 mg at 12/13/20902 cyclobenzaprine (FLEXERIL) tablet 10 mg 10 mg Oral BID PRN Donita Silva D 10 mg at 12/13/20902 dextrose 50% (D50W) syringe 25-50 mL 25-50 mL Intravenous PRN Krys Man MD gabapentin (NEURONTIN) capsule 200 mg 200 mg Oral TID Krys Man MD 2 00 mg at 12/13/20902 glucagon (GLUCAGEN) injection 1 mg 1 mg Intramuscular PRN Krys Man MD Or glucagon (GLUCAGEN) injection 1 mg 1 mg Subcutaneous PRN Krys Man MD glucose chewable tablet 16-32 g 16-32 g Oral PRN Krys Man MD hydrALAZINE (APRESOLINE) tablet 100 mg 100 mg Oral Q8H Krys Man MD 100 mg at 12/13/20904 insulin detemir U-100 (LEVEMIR) injection 10 Units 10 Units Subcutaneous Ni ghtly Krys Man MD 10 Units at 12/12/202141 insulin lispro (HumaLOG) injection 2-7 Units 2-7 Units Subcutaneous 4 times daily before meals and nightly Krys Man MD ondansetron (ZOFRAN) injection 4 mg 4 mg Intravenous Q6H PRN Rafa aaron MD QUEtiapine (SEROquel) tablet 50 mg 50 mg Oral Nightly Krys Man MD 5 0 mg at 12/12/202140 sertraline (ZOLOFT) tablet 100 mg 100 mg Oral Daily Krys Man MD trazodone (DESYREL) tablet 100 mg 100 mg Oral Nightly Krys Man MD 1 00 mg at 12/12/202141 Current Outpatient Medications Medication Sig Dispense Refill ALPRAZolam (XANAX) 0.5 MG tablet Take 0.5 mg by mouth nightly as needed. amLODIPine (NORVASC) 5 MG tablet Take 5 mg by mouth daily. aspirin 81 MG chewable tablet Chew 81 mg daily. atorvastatin (LIPITOR) 20 MG tablet Take 20 mg by mouth nightly. caRVEDILoL (COREG) 12.5 MG tablet Take 0.5 tablets (6.25 mg total) by mouth 2 (two) times a day with meals. 60 tablet 2 cholecalciferol, vitamin D3, 1,000 units(25 mcg) tablet Take 2,000 Units by mouth daily. cloNIDine HCL (CATAPRES) 0.1 mg tablet Take 1 tablet (0.1 mg total) by mouth 3 (three) times a day. Hold till follow up with physician. cyanocobalamin (VITAMIN B-12) 50 mcg tablet Take 50 mcg by mouth daily. cyclobenzaprine (FLEXERIL) 10 MG tablet Take 10 mg by mouth 2 (two) times a day as needed for muscle spasms. gabapentin (NEURONTIN) 400 MG capsule Take 800 mg by mouth 3 (three) times a day. hydrALAZINE (APRESOLINE) 100 MG tablet Take 1 tablet (100 mg total) by mouth every 8 (eight) hours while awake. 90 tablet 2 insulin detemir U-100 (LEVEMIR) 100 unit/mL injection Inject 10 Units under the skin nightly. 10 mL 1 insulin lispro (HUMALOG) 100 unit/mL injection Inject 1-10 Units under the s kin 3 (three) times a day before meals. 10 mL 1 loratadine (CLARITIN) 10 mg tablet Take 10 mg by mouth daily as needed for a llergies. methylphenidate HCl (RITALIN) 10 MG tablet Take 10 mg by mouth 2 (two) times a day. methylphenidate HCl (RITALIN) 5 MG tablet Take 5 mg by mouth every morning. omega 3 fish oil (SEA OMEGA) DHA 200 mg-EPA 300 mg (1,000 mg) capsule Take 1 capsule by mouth daily. potassium chloride (KLOR-CON) 10 MEQ CR tablet Take 20 mEq by mouth 2 (two) times a day. QUEtiapine (SEROQUEL) 50 MG tablet Take 50 mg by mouth nightly. sertraline (ZOLOFT) 100 mg tablet Take 100 mg by mouth daily. trazodone (DESYREL) 100 MG tablet Take 100 mg by mouth nightly. ALLERGIES: Clindamycin, Varenicline, Opioids - morphine analogues, Metformin, and Zolpidem SOCIAL HISTORY: Social History Socioeconomic History Marital status: Spouse name: Not on file Number of children: Not on file Years of education: Not on file Highest education level: Not on file Occupational History Not on file Tobacco Use Smoking status: Current Every Day Smoker Packs/day: 1.00 Years: 30.00 Pack years: 30.00 Smokeless tobacco: Current User Substance and Sexual Activity Alcohol use: Not Currently Drug use: Never Sexual activity: Not on file Other Topics Concern Not on file Social History Narrative Not on file Social Determinants of Health Financial Resource Strain: Difficulty of Paying Living Expenses: Food Insecurity: Worried About Running Out of Food in the Last Year: Ran Out of Food in the Last Year: Transportation Needs: Lack of Transportation (Medical): Lack of Transportation (Non-Medical): Physical Activity: Days of Exercise per Week: Minutes of Exercise per Session: Stress: Feeling of Stress : Social Connections: Frequency of Communication with Friends and Family: Frequency of Social Gatherings with Friends and Family: Attends Evangelical Services: Active Member of Clubs or Organizations: Attends Club or Organization Meetings: Marital Status: Intimate Partner Violence: Fear of Current or Ex-Partner: Emotionally Abused: Physically Abused: Sexually Abused: FAMILY HISTORY: Family History Problem Relation Age of Onset Diabetes Mother Hypertension Mother Hypertension Father Colon cancer Maternal Grandfather Stomach cancer Paternal Grandfather Vitals: 12/13/20 0324 12/13/20 0810 BP: 126/80 Pulse: 92 Resp: 16 18 Temp: 36.7 C (98 F) 36.6 C (97.9 F) SpO2: 96% Weight: Height: PHYSICAL EXAM: Gen: Alert and oriented HEENT: Normocephalic, Atraumatic Eyes: PERRL, EOMI Lungs: non-labored, good effort CV: Palp pulse in all 4 extremities Abd: Soft, non-tender, non-distended Bladder: no bladder distension noted Back: No CVA tenderness on the RIGHT, No CVA tenderness on LEFT. + right lower b ack pain to palpation. EXT: No redness, swelling, or calf tenderness Skin: Warm, dry and intact Neuro: CN II-XII grossly intact exam deferred Labs: Last 3 CBC Results (within last 7 days): Most Recent Result within the last 7 days Lab Units 12/13/20 0312 12/12/20 1816 WBC TH/uL 6.31 7.21 HEMOGLOBIN g/dL 7.6* 8.4* HEMATOCRIT % 24* 26* PLATELET COUNT TH/uL 241 291 Last 3 BMP Results (within the last 7 days): Most Recent Result within the last 7 days Lab Units 12/13/20 0312 12/12/20 1816 SODIUM MEQ/L 138 140 POTASSIUM MEQ/L 4.6 5.1 CHLORIDE MEQ/L 119* 119* CARBON DIOXIDE MEQ/L 16* 18* BLOOD UREA NITROGEN mg/dL 47* 48* CREATININE mg/dL 4.3* 4.4* GLUCOSE mg/dL 142* 135* CALCIUM mg/dL 7.6* 7.7* UA: Appearance, Urine Date/Time Value Ref Range Status 12/12/2020 05:47 PM Yellow Final Glucose Urine Date/Time Value Ref Range Status 12/12/2020 05:47 PM 250 (A) Negative mg/dL Final Hemoglobin Urine Date/Time Value Ref Range Status 12/12/2020 05:47 PM Small (A) Negative Final Ketones Urine Date/Time Value Ref Range Status 12/12/2020 05:47 PM Negative Negative mg/dL Final PH Urine Date/Time Value Ref Range Status 12/12/2020 05:47 PM 6.0 5.0 - 8.0 Final Bilirubin Urine Date/Time Value Ref Range Status 12/12/2020 05:47 PM Negative Negative Final Leukocyte Esterase Date/Time Value Ref Range Status 12/12/2020 05:47 PM Positive (A) Negative Final Specific [place], UA Date/Time Value Ref Range Status 12/12/2020 05:47 PM 1.025 1.001 - 1.030 Final Protein Urine Qual Date/Time Value Ref Range Status 12/12/2020 05:47 PM >300 (A) Negative mg/dL Final IMAGES: XR Chest single view frontal Result Date: 12/12/2020 No evidence of acute cardiopulmonary disease. Labs and imaging reports were reviewed ASSESSMENT/PLAN: 1. Urinary Tract Infection Afebrile No leukocytosis 11/28/20 Urine culture >10K Cfu/mL MSSA Bladder wall thickening consistent with cystitis seen on 11/26/20 NCCT ABD/Pel vis 12/12/20 UA with Micro consistent with UTI Urine culture in process Continue IV Rocephin while waiting for culture result to finalize Maintain adequate control of blood sugars and compliance with DM treatment re gimen Start daily probiotic Consider initiation of D'Mannose upon discharge if sugars controlled 2. Nephrolithiasis History of Right URS for 7mm stone approximately 7 years ago Last spontaneously passed stone a few months ago 11/26/20 NCCT ABD/Pelvis negative for ureteral calculi, left lower pole 2mm no n-obstructing renal calculus No flank pain or gross hematuria noted No acute urologic intervention warranted at this time Follow-up outpatient with established urologist or our office for management 3. ARF Recently hospitalized for VALERIE 11/25/20 - 11/28/20, creatinine on admission 4.2 and improved to 3.4 upon discharge. No hydronephrosis or evidence of obstruction seen on Renal Ultrasounds or CT performed during recent hospitalization Current admission creatinine 4.4 Baseline approximately 1.1 - 1.3 Do not suspect ARF urologic in etiology. Suspect ARF exacerbated by poor PO i ntake and n/v. Check PVR x 1, notify urology if PVR > 250cc Per nephrology, plan for renal biopsy today PPE Statement: Nuvia Lagos NP used Yellow precautions (Level 3 mask, eye prot ection, and gloves). Associated attestation - Akiko Reich MD - 12/13/2020 4:00 PM CDT I personally saw and examined the patient reviewed lab and CT report/images, dis cussed clinical situation with him. I agree with Nuvia Lagos NP's findings, as sessment and plan as documented in the note below. See below for additional rec ommendations. Hx: c/o abdom pain PE: Abd/flanks nontender Penile/scrotal skin normal Meatus normal Testes nontender, no palpable mass MDM: ARF, recent UTI, 1.3 cm left renal cyst, 2 mm (nonobstructing) left renal s tone, retroperitoneal lymphadenopathy (see the CT report). On Rocephin, repeat urine culture pending, blood cultures pending. Postvoid residual 161 mL. No ev idence of obstructive cause of his renal failure. Nephrology evaluation/managem ent is ongoing. Given retroperitoneal adenopathy I recommended checking a scrot al ultrasound and explained this to the patient. He is agreeable. Further eval uation may be necessary depending on those findings. We will follow along PPE Statement: Akiko Reich MD used Yellow precautions (Level 3 mask, eye protect ion, and gloves). Akiko Reich MD * Carlos Hsieh MD - 12/12/2020 6:20 PM CDT [facility] MD Mike Brown MD Achal Desai, MD Kristine Herron, MD Richard Schumacher Suleiman Daifallah, MD Archana Goel MD Encounter Date: 12/12/2020 6:21 PM Patient Demographic Information: Patient Name: Sommer Callahan Age: 45 y.o. Sex: male Date of : 1975 Current Admission: Admit Date: 12/12/2020 Admitting Physician: No admitting provider for patient encounter. Length of Stay: 0 Days Note Author: Carlos Hsieh I have been requested by Dr. Kramer To evaluate and co-manage renal care/ for Sommer Callahan . HPI: Sommer is a pleasant 45-year-old gentleman with no self-reported h istory of renal insufficiency per se. He was last seen in our system about a ye ar and a half ago at that time his BUN was 27 creatinine was 0.9 and has recentl y as April 2020 his creatinines been running about 1.3. He is known to be a type I diabetic diagnosed at the age of 22 i.e. 23 years ago . He has been somewhat noncompliant with the same and previously A1c's have bee n as high as 16. He was admitted to our hospital as a transfer from [facility] in [facility] on 11/25/2020 with acute kidney injury and was noted to be grossly ne phrotic at that time with approximately 16 g of protein in his urine. His urine culture Lilia apparently had shown the presence of staph. There was s ome question about prostate/cystoscopy evaluation in the last few months. [facility] e patient was treated with oral Zyvox and tells me that he started to get a francisco le better for the first 3 to 4 days. At time of discharge his creatinine had co me down to 3.4 from an admission creatinine of 4.2. He was followed up by his [facility] care provider whereby it was noted that his creatinine had gotten slightl y worse, Back to the 4 range. Over the last few days he has developed nausea vomiting and significant back wan n. He claims he was urinating adequately and was light but over the last 3 days has become increasingly foul-smelling and and somewhat dark in color He was asked to call our office and was seen by my nurse practitioner today to t he point where he was noted to be ill-appearing and sent to the ER for further e valuation of his renal dysfunction Past Medical History: Diagnosis Date Hypertension Stroke (HCC) 03/02/2019 Left parieto-occipital infarct Type 1 diabetes mellitus (HCC) 1998 Past Surgical History: Procedure Laterality Date APPENDECTOMY SINUS SURGERY TONSILLECTOMY Social History Socioeconomic History Marital status: Spouse name: Not on file Number of children: Not on file Years of education: Not on file Highest education level: Not on file Occupational History Not on file Tobacco Use Smoking status: Current Every Day Smoker Packs/day: 1.00 Years: 30.00 Pack years: 30.00 Smokeless tobacco: Current User Substance and Sexual Activity Alcohol use: Not Currently Drug use: Never Sexual activity: Not on file Other Topics Concern Not on file Social History Narrative Not on file Social Determinants of Health Financial Resource Strain: Difficulty of Paying Living Expenses: Food Insecurity: Worried About Running Out of Food in the Last Year: Ran Out of Food in the Last Year: Transportation Needs: Lack of Transportation (Medical): Lack of Transportation (Non-Medical): Physical Activity: Days of Exercise per Week: Minutes of Exercise per Session: Stress: Feeling of Stress : Social Connections: Frequency of Communication with Friends and Family: Frequency of Social Gatherings with Friends and Family: Attends Evangelical Services: Active Member of Clubs or Organizations: Attends Club or Organization Meetings: Marital Status: Intimate Partner Violence: Fear of Current or Ex-Partner: Emotionally Abused: Physically Abused: Sexually Abused: Family History Problem Relation Age of Onset Diabetes Mother Hypertension Mother Hypertension Father Colon cancer Maternal Grandfather Stomach cancer Paternal Grandfather (Not in a hospital admission) Current Facility-Administered Medications Medication Dose Route Frequency Provider Last Rate Last Admin cefTRIAXone (ROCEPHIN) injection 1,000 mg 1,000 mg Intravenous Daily Laila Kramer MD sodium chloride 0.9% (NS) IV Bolus 1,000 mL Intravenous Once Rafa aaron MD Current Outpatient Medications Medication Sig Dispense Refill ALPRAZolam (XANAX) 0.5 MG tablet Take 0.5 mg by mouth nightly as needed. amLODIPine (NORVASC) 5 MG tablet Take 5 mg by mouth daily. aspirin 81 MG chewable tablet Chew 81 mg daily. atorvastatin (LIPITOR) 20 MG tablet Take 20 mg by mouth nightly. caRVEDILoL (COREG) 12.5 MG tablet Take 0.5 tablets (6.25 mg total) by mouth 2 (two) times a day with meals. 60 tablet 2 cholecalciferol, vitamin D3, 1,000 units(25 mcg) tablet Take 2,000 Units by mouth daily. cloNIDine HCL (CATAPRES) 0.1 mg tablet Take 1 tablet (0.1 mg total) by mouth 3 (three) times a day. Hold till follow up with physician. cyanocobalamin (VITAMIN B-12) 50 mcg tablet Take 50 mcg by mouth daily. cyclobenzaprine (FLEXERIL) 10 MG tablet Take 10 mg by mouth 2 (two) times a day as needed for muscle spasms. gabapentin (NEURONTIN) 400 MG capsule Take 800 mg by mouth 3 (three) times a day. hydrALAZINE (APRESOLINE) 100 MG tablet Take 1 tablet (100 mg total) by mouth every 8 (eight) hours while awake. 90 tablet 2 insulin detemir U-100 (LEVEMIR) 100 unit/mL injection Inject 10 Units under the skin nightly. 10 mL 1 insulin lispro (HUMALOG) 100 unit/mL injection Inject 1-10 Units under the s kin 3 (three) times a day before meals. 10 mL 1 loratadine (CLARITIN) 10 mg tablet Take 10 mg by mouth daily as needed for a llergies. methylphenidate HCl (RITALIN) 10 MG tablet Take 10 mg by mouth 2 (two) times a day. methylphenidate HCl (RITALIN) 5 MG tablet Take 5 mg by mouth every morning. omega 3 fish oil (SEA OMEGA) DHA 200 mg-EPA 300 mg (1,000 mg) capsule Take 1 capsule by mouth daily. potassium chloride (KLOR-CON) 10 MEQ CR tablet Take 20 mEq by mouth 2 (two) times a day. QUEtiapine (SEROQUEL) 50 MG tablet Take 50 mg by mouth nightly. sertraline (ZOLOFT) 100 mg tablet Take 100 mg by mouth daily. trazodone (DESYREL) 100 MG tablet Take 100 mg by mouth nightly. Allergies Allergen Reactions Clindamycin Dizziness, Hypotension, Syncope and Hives Varenicline Hallucinations Patient notes experiencing hallucinations and mood changes w/ this medication. Metformin Abdominal Pain and Nausea And Vomiting Zolpidem Other reaction(s): sleep walking, UNKNOWN Results for orders placed or performed during the hospital encounter of 12/12/20 (from the past 24 hour(s)) Urinalysis Reflex Result Value Ref Range Appearance, Urine Yellow Glucose Urine 250 (A) Negative mg/dL Bilirubin Urine Negative Negative Ketones Urine Negative Negative mg/dL Specific [place], UA 1.025 1.001 - 1.030 Hemoglobin Urine Small (A) Negative PH Urine 6.0 5.0 - 8.0 Protein Urine Qual >300 (A) Negative mg/dL Urobilinogen Urine Negative Negative EU/dL Nitrite Urine Positive (A) Negative Leukocyte Esterase Positive (A) Negative Urinalysis Microscopic Only Result Value Ref Range Microscopic RBC Urine 0-5 0 - 5 /hpf Microscopic WBC Urine >40 (A) 0 - 5 /hpf Epithelial Cells Absent Absent Hyaline Cast Absent Absent Bacteria Small (A) Absent Patient Vitals for the past 24 hrs: BP Temp Temp src Pulse Resp SpO2 Height Weight 12/12/20 1731 (!) 152/92 36.7 C (98 F) Oral (!) 106 18 99 % 1.778 m (5' 10") 88.5 kg (195 lb) No intake or output data in the 24 hours ending 12/12/201820 ROS: 14 point review of systems is conducted with the patient is grossly negati ve other than as mentioned under HPI Physical Exam: GENERAL Awake, Alert Oriented x 3 In NAD HEAD: NCAT No obvious wounds EYES: SCLERA: Anicteric Conjunctiva: Normal ENT: Mucous Membranes Moist, poor dentition no Active Ear/ Nasal Drainage NECK: Supple no JVD no JVP LUNGS: Clear to Auscultation No Rales No Rhonchi Good Air Entry Bilaterally HEART: S1 S2 possible murmur No Gallop No RUB Edema: none ABD: NT ND No Palpable HS Megaly on my exam + Bowel sounds : No CVA Tenderness No Suprapubic Tenderness NEURO: Moves all 4 ext spontaneously and to command MU. SK: no Muscle Atrophy adequate ROM SKIN: No Obvious Rashes noted; no visible open wounds HEME: I was unable to palpate any obvious LAD at the Usual sites PSYCH: Not overtly depressed or actively hallucinating per se. No results found. No results found. Echocardiogram 11/27/2020: IMPRESSION 1. Lower limits normal left ventricular systolic function, with a calculated e jection fraction by 3D echo of 53%. 2. Moderate to severe concentric left ventricular hypertrophy. 3. Abnormal global longitudinal myocardial strain. -14 (Epiq) 4. No significant valvular abnormalities. 5. No previous study available for comparison. Yao Gomez MD (Electronically Signed) Final Date: 27 November 2020 11:06 CT scan of the abdomen pelvis without contrast on 11/26/2020 Kidneys and ureters: Tiny nonobstructing calculus in the lower pole of the left kidney measures 2 mm. Renal parenchyma otherwise normal in thickness. No significant hydronephrosis. 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 This was contemplated on his previous hospitalization however was not performed due to p ositive urine cultures and the fact that patient was on aspirin and had received it on day 2 of his hospitalization. No monoclonal gammopathy is noted Persistent staph in the urine,: We will consult ID. Discussed with Dr. Claros and will change antibiotics to Rocephin for MSSA as was growing in his urine on his previous hospitalization here Nonobstructing renal calculi on previous CT. May need further evaluation if fel t to be associated with infection HyperTN: Current Medication list reviewed; as needed blood pressure medications if needed Anemia in the setting of Renal Failure:: RhuEPO will be Ordered if needed to maintain Hemoglobin in 10-11 range HyperPhosphatemia of Renal Failure: Continue current regimen of [place]; Will co ntinue to monitor and alter doses based on PO intake Type 1 diabetes: Defer to primary team, consider endocrinology evaluation If IV contrast is required for CT imaging to delineate, identify source of infec tion: If benefits outweigh risks, this could be pursued with adequate counseling of the patient Avoid nephrotoxic agents/ IV contrast - unless benefits outweigh risks Keep MAP>65 to keep adequate renal perfusion Dose medications per pharmacy for changing GFR (consider pharmacy consult for the same ) I appreciate the opportunity to participate in the care of this wonderful gentle man. Will Follow with you during this hospital stay. This note was partially created using [employer] App voice recognition software in a spa ce with significant background noise and ongoing conversation (which is beyond m y control). I have diligently proof read the note to the best of my ability but errors due to bread wrapper software may be missed. Any such errors are unintent ional and I will be happy to clarify if brought to my attention (even at a later date) Carlos Hsieh, 12/12/2020 6:21 PM documented in this encounter Nursing Notes * Inna De Jesus RN - 12/25/2020 10:00 AM CDT Patient taken to IR for permanent Dialysis catheter placement. * Raleigh Thompson RN - 12/13/2020 6:40 PM CDT Patient transferred to room 338 at 1700ish. Jess WILLARD was given report. Patient garcia d HD IJ placed in IR. Patient had CT of head and ultrasound of scrotum see resul ts in chart. Patient covid test is negative. Patient pain was managed with trama dol. He reported that tramadol help. Patient left to PCU 3 in stable condition. documented in this encounter ED Notes * Rafa Kramer MD - 12/12/2020 6:05 PM CDT 12/12/2020 [facility] History Chief Complaint Patient presents with Abdominal Pain pt reports having N/V/D intermittenly for the past couple of weeks and that garcia s gotten worse over the past two days and he is having mid abd pain as well. The history is provided by the patient. Abdominal Pain Pain location: pt with h/o diabetes, VALERIE, UTI-admit on 11/25-11/28-pt here due to decrease output, N/V/D-Cr back up at nephrology appt-told to come to ED-may need to be started on HD-c/o chills. Onset quality: Gradual Timing: Constant Progression: Worsening Chronicity: Recurrent (pt with recent Acute on CRF) Relieved by: Nothing Worsened by: Nothing Associated symptoms: chills, diarrhea, dysuria, nausea and vomiting Associated symptoms: no chest pain and no fever Risk factors: recent hospitalization (dc on 11/28/20) Past Medical History: Diagnosis Date Hypertension Stroke (HCC) 03/02/2019 Left parieto-occipital infarct Type 1 diabetes mellitus (HCC) 1998 Past Surgical History: Procedure Laterality Date APPENDECTOMY SINUS SURGERY TONSILLECTOMY Family History Problem Relation Age of Onset Diabetes Mother Hypertension Mother Hypertension Father Colon cancer Maternal Grandfather Stomach cancer Paternal Grandfather Social History Tobacco Use Smoking status: Current Every Day Smoker Packs/day: 1.00 Years: 30.00 Pack years: 30.00 Smokeless tobacco: Current User Substance Use Topics Alcohol use: Not Currently Drug use: Never Review of Systems Constitutional: Positive for chills. Negative for fever. Cardiovascular: Negative for chest pain. Gastrointestinal: Positive for abdominal pain, diarrhea, nausea and vomiting. Genitourinary: Positive for dysuria. All other systems reviewed and are negative. Physical Exam BP (!) 152/92 (BP Location: Right arm) | Pulse (!) 106 | Temp 98 F (36.7 C ) (Oral) | Resp 18 | Ht 1.778 m (5' 10") | Wt 88.5 kg (195 lb) | SpO2 99% | BMI 27.98 kg/m Weight Method: Stated O2 Device: None (Room air) Physical Exam Vitals and nursing note reviewed. Constitutional: General: He is not in acute distress. Appearance: He is well-developed. He is not ill-appearing. HENT: Head: Normocephalic and atraumatic. Nose: Nose normal. Eyes: Extraocular Movements: Extraocular movements intact. Conjunctiva/sclera: Conjunctivae normal. Cardiovascular: Rate and Rhythm: Regular rhythm. Tachycardia present. Heart sounds: Normal heart sounds. Pulmonary: Effort: Pulmonary effort is normal. No respiratory distress. Breath sounds: Normal breath sounds. No wheezing or rales. Abdominal: General: Bowel sounds are normal. There is no distension. Palpations: Abdomen is soft. Musculoskeletal: General: Normal range of motion. Cervical back: Normal range of motion and neck supple. Right lower leg: No edema. Left lower leg: No edema. Skin: General: Skin is warm and dry. Findings: No rash. Neurological: Mental Status: He is alert and oriented to person, place, and time. Deep Tendon Reflexes: Reflexes are normal and symmetric. Psychiatric: Behavior: Behavior normal. Thought Content: Thought content normal. Judgment: Judgment normal. ED Course Procedures MDM Pt will need readmission- nephrology down in ED-seeing pt-anticipat pt wi ll need to be started on hemodialysis-pt started on Rocephin 1gm IV in ED-prev U A showed MSSA-admission to hospitalist-NS1L IV as well-Cr 3.4 at dc-today 4.4 EKG: per my interpretation shows sinus tachy, normal axis, non specific [facility] [place] changes with a rate of 110 . There are not any ST changes concerning for ische marisela. No prev EKG in EMR to compare, too. Critical Care time spent on this patient outside of billable procedures: 35min LABS Results for orders placed or performed during the hospital encounter of 12/12/20 (from the past 24 hour(s)) Urinalysis Reflex Result Value Ref Range Appearance, Urine Yellow Glucose Urine 250 (A) Negative mg/dL Bilirubin Urine Negative Negative Ketones Urine Negative Negative mg/dL Specific [place], UA 1.025 1.001 - 1.030 Hemoglobin Urine Small (A) Negative PH Urine 6.0 5.0 - 8.0 Protein Urine Qual >300 (A) Negative mg/dL Urobilinogen Urine Negative Negative EU/dL Nitrite Urine Positive (A) Negative Leukocyte Esterase Positive (A) Negative Urinalysis Microscopic Only Result Value Ref Range Microscopic RBC Urine 0-5 0 - 5 /hpf Microscopic WBC Urine >40 (A) 0 - 5 /hpf Epithelial Cells Absent Absent Hyaline Cast Absent Absent Bacteria Small (A) Absent Troponin Result Value Ref Range Troponin <0.01 0.00 - 0.03 ng/mL NTproBNP Result Value Ref Range NTproBNP 1,190 pg/mL CBC and Diff (manual diff if necessary) Result Value Ref Range WBC 7.21 4.00 - 11.00 TH/uL RBC 2.73 (L) 4.31 - 5.84 MIL/uL Hemoglobin 8.4 (L) 13.0 - 17.0 g/dL Hematocrit 26 (L) 40 - 50 % MCV 96 80.0 - 99.0 fL MCH 31 27.0 - 34.0 pg MCHC 32 32 - 36 % RDW 14.0 11.5 - 14.5 % Platelet Count 291 140 - 400 TH/uL MPV 9.1 (L) 9.4 - 12.3 fL Nucleated RBCs 0 0 - 0 /100 % Neutrophils 69 45 - 78 % %Lymphocytes 15 15 - 47 % % Monocytes 11 0 - 12 % %Eosinophils 4 0 - 7 % %Basophils 1 0 - 2 % % Imm Grans 0 0 - 1 % # Granulocytes 5.00 1.70 - 6.80 TH/uL # Lymphocytes 1.11 1.00 - 3.30 TH/uL # Monocytes 0.77 0.20 - 0.90 TH/uL # Eosinophils 0.28 0.00 - 0.40 TH/uL # Basophils 0.04 0.00 - 0.10 TH/uL Comprehensive Metabolic Panel Result Value Ref Range Sodium 140 133 - 147 MEQ/L Potassium 5.1 3.5 - 5.3 MEQ/L Chloride 119 (H) 96 - 112 MEQ/L Carbon Dioxide 18 (L) 20 - 32 MEQ/L Anion Gap 3 (L) 5 - 17 Calcium 7.7 (L) 8.4 - 10.5 mg/dL Glucose 135 (H) 70 - 100 mg/dL Protein Total Serum 6.0 6.0 - 8.2 g/dL Albumin 3.0 (L) 3.5 - 5.0 g/dL Alkaline Phosphatase 74 42 - 140 IU/L Alanine Aminotransferase 20 0 - 49 IU/L Aspartate Aminotransferase 21 15 - 46 IU/L Bilirubin Total 0.2 0.2 - 1.3 mg/dL Blood Urea Nitrogen 48 (H) 7 - 26 mg/dL Creatinine 4.4 (H) 0.6 - 1.3 mg/dL eGFR Male AA 18 (L) 60 - 200 mL/min/1.73sq m eGFR Male Non-AA 15 (L) 60 - 200 mL/min/1.73sq m Lipase Result Value Ref Range Lipase 304 (H) 23 - 300 IU/L Lactate Venous WB - 0hr STAT Result Value Ref Range Lactate Venous 0.8 0.0 - 2.0 mmol/L Electrocardiogram (ECG) Result Value Ref Range QRSd 96 QT 356 QTC 482 ECGHR 110 ECGPR 160 RADIOLOGY XR Chest single view frontal (Results Pending) IR Biopsy Kidney (Results Pending) IR Non Tunneled Dialysis catheter placement (Results Pending) DIAGNOSIS Problem List Items Addressed This Visit None Visit Diagnoses Urinary tract infection without hematuria, site unspecified - Primary Relevant Medications cefTRIAXone (ROCEPHIN) injection 1,000 mg Acute renal failure superimposed on chronic kidney disease, unspecified CKD sta ge, unspecified acute renal failure type (HCC) ED Clinical Impression 1. Urinary tract infection without hematuria, site unspecified 2. Acute renal failure superimposed on chronic kidney disease, unspecified CKD s tage, unspecified acute renal failure type (HCC) Patient ED Dispo ED Disposition Admit Rafa Kramer MD 12/12/20 460 documented in this encounter Miscellaneous Notes * End of Shift Note - Inna De Jesus RN - 12/25/2020 1:40 PM CDT End of Shift Summary and Plan of Care Patient is alert/ oriented, very pleasant affect. New Dialysis catheter to Right upper chest, area tender to touch. Patient is tolerating very well, and stable for discharge. Goals/Plan for Shift Patient/Family stated goal for shift: Get dialysis catheter. Nursing goal for shift: Patient will meet requirements for d/c today. Plan: Dialysis catheter in IR; Patient education; vs/ lANB/ BS CHECKS. Goals/Plan for Hospital Stay Patient/Family stated goal for hospital stay: Get better and go home Nursing goal for hospital stay: Pain management, vitals and assessment, educatio n Plan: Manage pain, frequent vitals and assessment, educate pt on plan of care * Care Progression Final DC Note - Lorraine Hand RN - 12/25/2020 1:28 PM CDT Final Discharge Note Final Discharge Disposition: 01-Home Self Care Discharge goal and plan is mutually agreed upon by patient and treatment team. Patient will discharge to: Home self care Transportation: Private vehicle Discharge Time: When bedside RN deems patient is ready for discharge and transpo rtation is available. Special Instructions: Bedside RN notified CC complete * End of Shift Note - Jess Toscano RN - 12/25/2020 6:57 AM CDT End of Shift Summary and Plan of Care PRN Fioricet administered x1 for headache. Pt NPO at midnight for cath placement today at 1230. Assessment and vitals per flowsheet. Goals/Plan for Shift Patient/Family stated goal for shift: Sleep, get cath placed and go home tomorro w Nursing goal for shift: Pain management, rest Plan: Assess pain and treat per MAR, NPO at 0000, cluster care for rest Goals/Plan for Hospital Stay Patient/Family stated goal for hospital stay: Get better and go home Nursing goal for hospital stay: Pain management, vitals and assessment, educatio n Plan: Manage pain, frequent vitals and assessment, educate pt on plan of care * End of Shift Note - Janiya Olmstead RN - 12/24/2020 7:00 PM CDT End of Shift Summary and Plan of Care Pt alert and oriented x 4. Independent in room. Headache this evening. Tempor jennie dialysis catheter pulled. Permanent dialysis cath scheduled to be placed at 1230 tomorrow, 12/25/2020. Possible discharge after line placement. Ophthalmology does not see inpatient. Care progression aware to make appointmen t outpatient at discharge. Goals/Plan for Shift Patient/Family stated goal for shift: Rest comfortably and hopefully discharge s oon Nursing goal for shift: Pain management, labs, rest Plan: Assess pain, monitor BS and treat per MAR, cluster care for rest Goals/Plan for Hospital Stay Patient/Family stated goal for hospital stay: Get better and go home Nursing goal for hospital stay: Pain management, vitals and assessment, educatio n Plan: Manage pain, frequent vitals and assessment, educate pt on plan of care * Discharge Planning - Lorraine Hand RN - 12/24/2020 1:20 PM CDT Discharge Planning Interventions General Discharge Note Follow-up Appointment Other Other Reason: 1. needs ride to home ( sick) - can you arrange? 2. d/c [facility] [place] today - ?outpt dialysis arranged for tomorrow or wed? 3. [facility] assoicates Dr. Johnson - need apt - can they see him today (nearby)? Details: see abovce 1. Advised patient we could assist him in setting up a ride home, but it would c ost him approximately $200.00. Patient mentioned he has 5 people in his family, but kept repeating his has a fever. Will follow up at a later time as rashida nt did not want our assistance setting up transportation. 2. See not from Trudi Jvaed r/t dialysis being set up outpt. Note 12/24 11:00am. 1:35pm update: Trudi received confirmation patient is set up at [facility] for Thursday, Thursday, Thursday 12:30 chair time. 3. Spoke with patient about appointment with Dr. Johnson. Patient reports he is an established patient but missed his appointment related to his hospitalization 11-25 thru 11-28. He never call to reschedule. I've called Dr. Johnson's office twic e and hold for extended periods of time and then the call drops off. Was finally able to reach Dale at Dr. Johnson's office. Patient has appointment ana eduled for 02/07 at 9:15am. Dr. Johnson is in [place] on Tuesdays, does surger y on . Patient's dialysis schedule made it difficult to schedule an ap pointment with Dr. Johnson's schedule. 2:30pm patient updated. Provided information on dialysis clinic location and dee ir times. We discussed appointment with Dr. Johnson. Patient verbalized understand ing. * End of Shift Note - Jess Toscano RN - 12/24/2020 5:55 AM CDT End of Shift Summary and Plan of Care Patient A&Ox4, RA. Denies pain this shift. Independent in room. Pt has been NPO since midnight for permanent dialysis cath placement today. No acute events this shift. Goals/Plan for Shift Patient/Family stated goal for shift: Rest comfortably and hopefully discharge s oon Nursing goal for shift: Pain management, labs, rest Plan: Assess pain, monitor BS and treat per MAR, cluster care for rest Goals/Plan for Hospital Stay Patient/Family stated goal for hospital stay: Get better and go home Nursing goal for hospital stay: Pain management, vitals and assessment, educatio n Plan: Manage pain, frequent vitals and assessment, educate pt on plan of care * End of Shift Note - Hayley Hunter RN - 12/23/2020 6:30 PM CDT End of Shift Summary and Plan of Care The pt is hoping to go home tomorrow or Thursday as his has been ill with a fever and had to go to the ED for some fluids yesterday. The pt is to have a permanent dialysis catheter placed and needs to receive dial ysis here at [facility] prior to the possible discharge home tomorrow. The pt had a good day; he denies pain. Is alert and calm. He has a good appetite and consumes 100% of meals. SSI and ACHS bg checks completed today. Pt walked i n the halls some today as well. Goals/Plan for Shift Patient/Family stated goal for shift: To be comfortable and to get enough to eat today Nursing goal for shift: The pt will have stable BG today and will remain hemodyn amically stable. Plan: Monitor labs and VS; encourage pt to eat a well balanced diet and monitor protien intake; monitor BG and ACHS fingersticks; encourage ambuation; education provided Goals/Plan for Hospital Stay Patient/Family stated goal for hospital stay: Get better and go home Nursing goal for hospital stay: Pain management, vitals and assessment, educatio n Plan: Manage pain, frequent vitals and assessment, educate pt on plan of care * End of Shift Note - Allen Sanchez RN - 12/23/2020 6:23 AM CDT End of Shift Summary and Plan of Care Patient had a fair night overall. Had one c/o diarrhea when shift started. State d he had nepro and apparently he is lactose intolerant. Diarrhea resolved withou t any med interventions. Oral fluids encouraged. No c/o pain except spasms to BL E. PRN antispasmodic given and patient slept after that. See flow sheet for deta iled assessments and vitals. Goals/Plan for Shift Patient/Family stated goal for shift: treat this diarrhea and upset stomach and muscle spasms in my legs Nursing goal for shift: diarrhea will be controlled, improved spasms in legs Plan: contact provider re:c/o GI upset and diarrhea, administer prn antispasmodi cs, encourage to get up and ambulate Goals/Plan for Hospital Stay Patient/Family stated goal for hospital stay: Get better and go home Nursing goal for hospital stay: Pain management, vitals and assessment, educatio n Plan: Manage pain, frequent vitals and assessment, educate pt on plan of care * End of Shift Note - Buffy Wan RN - 12/22/2020 6:25 PM CDT End of Shift Summary and Plan of Care No acute events this shift. Pt had dialysis this AM. Tolerated well. Fioricet gi radha x1 for c/o headache. Independent in the room. [facility] Goals/Plan for Shift Patient/Family stated goal for shift: Dialysis Nursing goal for shift: Pain control, low BP Plan: Assess and treat pain, administer BP Goals/Plan for Hospital Stay Patient/Family stated goal for hospital stay: Get better and go home Nursing goal for hospital stay: Pain management, vitals and assessment, educatio n Plan: Manage pain, frequent vitals and assessment, educate pt on plan of care * Assessment & Plan Note - Temitope Horton MD - 12/22/2020 5:40 PM CDT Associated Problem(s): Strain of muscle, fascia and tendon at neck level, initia l encounter Needs myofascial release/rolfing as outpt Inpt: can do heat, and ice alternating therapy. Have to avoid nsaids due to ckd * End of Shift Note - Allen Sanchez RN - 12/22/2020 6:25 AM CDT End of Shift Summary and Plan of Care Patient had a shower last night. No c/o pain/discomfort. He states he will have dialysis today. No acute events through the night. Vitals and assessments per fl ow sheet Goals/Plan for Shift Patient/Family stated goal for shift: take a shower Nursing goal for shift: patient will have a shower, fall prevention, pain manage ment, stable blood pressure Plan: assist patient with shower as needed, fall precautions, assess and treat p ain, administer BP meds Goals/Plan for Hospital Stay Patient/Family stated goal for hospital stay: Get better and go home Nursing goal for hospital stay: Pain management, vitals and assessment, educatio n Plan: Manage pain, frequent vitals and assessment, educate pt on plan of care * Assessment & Plan Note - Temitope Horton MD - 12/21/2020 7:17 PM CDT Associated Problem(s): Mastoiditis of left side Chronic headache, hx of sinus infections, uncontrolled DM I - will treat as acut e infection. Discussed w ID, recommend Augmentin for now, started 12/21 and * End of Shift Note - Buffy Wan RN - 12/21/2020 6:21 PM CDT End of Shift Summary and Plan of Care No acute events this shift. Pt resting in room. Up ad tobias. No complaints of pain . VS and assessment per flowsheets Goals/Plan for Shift Patient/Family stated goal for shift: "Figure out when I will get the permacath" Nursing goal for shift: discharge planning Plan: Pt education, prn pain meds, Goals/Plan for Hospital Stay Patient/Family stated goal for hospital stay: Get better and go home Nursing goal for hospital stay: Pain management, vitals and assessment, educatio n Plan: Manage pain, frequent vitals and assessment, educate pt on plan of care * Nutrition Note - Mirella Loredo RD - 12/21/2020 2:33 PM CDT Nutrition Education [facility] Patient: Sommer Callahan Age: 45 y.o. : 1975 PRIMARY CARE PROVIDER: Carmelita Avila APRN ATTENDING PHYSICIAN: Temitope Horton MD RD consulted for Renal Nutrition Education. Chart Reviewed Education Summary: Provided renal diet education to pt again (first education oc curred on 11/28/20). Pt reports he makes his own meals, mostly meat and potatoes. Reviewed foods to choose vs foods to avoid with K, Phos, and Na. Pt. asked no q uestions and didn't speak much. RD name/# provided for further questions/concern s. Electronically signed by Mirella Loredo 12/21/2020 2:33 PM * Discharge Planning - Pino Fuchs RN - 12/21/2020 11:00 AM CDT Discharge Planning Interventions General Discharge Note Anticipated discharge disposition: Home Self Care [place] [facility] [place] Additional discharge planning information: CC contacted LOGAN regarding insurance a uth time required. LOGAN reports Thursday at the earliest. Insurance card faxed to r as requested. notified of minimum time required. Will continue to follow. Referrals: Anticipated needs/services for patients discharge: Living Arrangement (pulls from initial assessment) Support System (pulls from initial assessment) Is the prior level of care appropriate and safe? Short term discharge goals (moving to initial assessment) terminal carman discharge goals (moving to initial assessment) Current Services: Home Care Services (flowsheet in initial assessment) Type of Home Care Services (flowsheet in initial assessment that cascades from H ome Care Services, so will show blank if answer was no) Patient's preferred [facility] post-discharge list provided and discussed quality ratin gs: Home Health, Usp Facility, LTAC Physical Therapy Location: Occupational Therapy Location: Speech Therapy Location: Infusion Therapy Location: Hospice Location: Home Health: Community Resources: Anticipated dDurable Medical Equipment needs for discharge: DME Needed: Current DME Recommendations per Therapy: PT: OT: DME Provider name (freetext flowsheet) Referrals: Referral [facility] Referrals Made (flowsheet documentation) Referral Accepted (will be removed because this is captured in Destination activ ity) Discharge Planning Participants: Pt/Family Agreement w/ discharge plan: Patient's preferred [facility] post-discharge list provided and discussed quality ratin gs: * End of Shift Note - Allen Sanchez RN - 12/21/2020 6:31 AM CDT End of Shift Summary and Plan of Care Patient had a fair night. No c/o pain. Had oxygen on 2L NC through the night. Po tassium 3.4 this morning but not replaced d/t creatinine being high 3.0 and he h as no prn replacement orders at this time. MRI showing mastoid fluid and middle ear fluid (possible otitis media).Patient Verbalized headaches are getting rayne r with the IV medications. He states he hopes to be discharged today. See flow s heet for detailed assessments Goals/Plan for Shift Patient/Family stated goal for shift: Less cough Nursing goal for shift: less cough, adeqaute oxygen sats Plan: notify provider for prn orders re:cough, monitor oxygen sats and titrate l iters per orders Goals/Plan for Hospital Stay Patient/Family stated goal for hospital stay: Get better and go home Nursing goal for hospital stay: Pain management, vitals and assessment, educatio n Plan: Manage pain, frequent vitals and assessment, educate pt on plan of care * End of Shift Note - Buffy Wan RN - 12/20/2020 6:17 PM CDT End of Shift Summary and Plan of Care Pt resting in room. Dialysis done. MRI of the brain. Results pending. Pt indepen dent in the room. BP elevated. VS and assessment per flowsheets Goals/Plan for Shift Patient/Family stated goal for shift: no pain Nursing goal for shift: pt safety, pain management, monitor pt post dialysis Plan: call light within reach, pain assessment, prn pain meds, Goals/Plan for Hospital Stay Patient/Family stated goal for hospital stay: Get better and go home Nursing goal for hospital stay: Pain management, vitals and assessment, educatio n Plan: Manage pain, frequent vitals and assessment, educate pt on plan of care * Discharge Planning - Demetra Mayorga RN - 12/20/2020 4:55 PM CDT Discharge Planning Interventions General Discharge Note Outreach call to Trudi Javed at [phone] to assist with OP HD arrangements. This RN left message for Trudi requesting return of call. .Demetra Mayorga, 12/20/2020 4:56 PM * Hospital Course - Temitope Horton MD - 12/20/2020 10:26 AM CDT Mr. Sommer Callahan is a 45 y.o. male who was admitted on 12/12/2020 with complaint of Abdominal Pain. Patient was just discharged from the hospital after treatmen t of MSSA UTI. He returned back to the ER with complaints of nausea, vomiting a nd abdominal discomfort. He was found to have acute kidney injury on his CKD. Nephrology was consulted, he was initially started on sodium bicarb drip. Given his recent history of MSSA UTI, he was empirically started on Ancef and infecti ous disease was consulted who felt that patient most likely has right-sided pyel onephritis and recommended to continue Ancef. Patient subsequently underwent te mporary hemodialysis catheter placement. He also had a renal biopsy the results of which are suggesting diabetic nephropathy. He has been initiated on hemodia lysis per nephrology. Patient has also been having refractory headache for [facility] h neurology has been consulted. He has had uncontrolled blood pressure during h is stay and his home regimen have been adjusted. Given nephrolithiasis found on the CAT scan, urology was also consulted who has recommended conservative manag ement and outpatient follow-up. Discharge delayed (medically ready 12/24) as: - permanent HD line that was suppose to happen today is now happening tomorrow - no ride to [place] ( sick) - transport issue - HD outpt still not set up per SW (delay) - they are working on it Discharge related: DM : [place] Mastoiditis: at d/c to complete total of 14 days of augmentin Vision change: Of note, at [place] pt needs urgent apt with [facility] Dr. Johnson - have reque sted it gets made for dc day so he can go to it and then travel back home ([address] given worsened vision (nothing acute / emergency) * End of Shift Note - Yue Kruse RN - 12/20/2020 7:01 AM CDT End of Shift Summary and Plan of Care A/Ox4. Pt requiring 2.5 liters nasal canula throughout shift. Up ad tobias. Pt comp lained of headache pain, fioricet given. Assessments and vitals per flowsheets. Goals/Plan for Shift Patient/Family stated goal for shift: no pain Nursing goal for shift: pt safety, pain management, rest Plan: call light within reach, pain assessment, prn pain meds, cluster care Goals/Plan for Hospital Stay Patient/Family stated goal for hospital stay: Get better and go home Nursing goal for hospital stay: Pain management, vitals and assessment, educatio n Plan: Manage pain, frequent vitals and assessment, educate pt on plan of care * End of Shift Note - Janiya Olmstead RN - 12/19/2020 6:45 PM CDT End of Shift Summary and Plan of Care Pt alert and oriented. Independent in room. Headache, PRN fioricet given, pt r eports that it did not help much today. Neurology consulted and saw pt, ordered IV valproate. Pt reports 5-6/10 headache after IV medication given, down from 7-8/10. Dialysis completed today. Possible permacath placement tomorrow after evaluation by MDs, Nephrology to discuss with ID tomorrow. Bloody urine with a small clot this afternoon, hospitalist, nephrology, and ID notified. Goals/Plan for Shift Patient/Family stated goal for shift: Get rid of headache Nursing goal for shift: Safety; Pain control; Rest Plan: Assess and treat pain as needed; Calls appropriately Goals/Plan for Hospital Stay Patient/Family stated goal for hospital stay: Get better and go home Nursing goal for hospital stay: Pain management, vitals and assessment, educatio n Plan: Manage pain, frequent vitals and assessment, educate pt on plan of care * Nutrition Note - Kamala Barbosa RD - 12/19/2020 11:18 AM CDT Nutrition Length of Stay [facility] Patient: Sommer Callahan Age: 45 y.o. : 1975 PRIMARY CARE PROVIDER: Caremlita Avila APRN ATTENDING PHYSICIAN: Bruce Samayoa MD Patient assessed for nutrition risk based on length of stay. Chart reviewed. Height: 177.8 cm (5' 10") Admit Weight: 88.5 kg; wt 12/13; 91 kg ( 200 lb 9.9 oz) Weight: 92.1 kg (203 lb 0.7 oz) Weight Change: wt near 12/13 wt, I/O noted BMI (Calculated): 29.13 Diet Order: Hemodialysis, Consistent Carbohydrate Diet Food Intake: Average po intake 90%x 16 meals Pt resting in bed and receiving dialysis currently. Monitor for need of nutriti on education on current diet. No acute nutrition diagnosis determined at this time. Continue with current nutr ition plan. Will continue to evaluate every 5-7 days per policy. Electronically signed by Kamala Barbosa 12/19/2020 11:18 AM * End of Shift Note - Yue Kruse RN - 12/19/2020 6:26 AM CDT End of Shift Summary and Plan of Care A/Ox4, on RA, up ad tobias. Pt complained of headache pain, prn fioricet given. Bio psy site clean and intact. Assessments and vitals per flowsheets. Goals per Patient Condition Fall Prevention Plan Patient will remain free from injury related to falls. See the Daily cares/safety flowsheet for intervention documentation. Goals/Plan for Shift Patient/Family stated goal for shift: less pain Nursing goal for shift: pt safety, pain management, rest Plan: call light within reach, pain assessment, prn pain meds, cluster care Goals/Plan for Hospital Stay Patient/Family stated goal for hospital stay: Get better and go home Nursing goal for hospital stay: Pain management, vitals and assessment, educatio n Plan: Manage pain, frequent vitals and assessment, educate pt on plan of care * End of Shift Note - Janiya Olmstead RN - 12/18/2020 7:00 PM CDT End of Shift Summary and Plan of Care Pt alert and oriented. Independent in room. Headache today, PRN fioricet. Wan n in L flank from biopsy yesterday improved, 03/11 pain level, site CDI. Dialysi s completed today. Chest xray this evening d/t requiring oxygen overnight. Goals per Patient Condition Fall Prevention Plan Patient will remain free from injury related to falls. See the Daily cares/safety flowsheet for intervention documentation. Goals/Plan for Shift Patient/Family stated goal for shift: Pain control Nursing goal for shift: Pain management, safety, monitor I&O, rest Plan: Assess pain and treat per MAR, frequent rounding, monitor urine appearance , cluster care, dialysis Goals/Plan for Hospital Stay Patient/Family stated goal for hospital stay: Get better and go home Nursing goal for hospital stay: Pain management, vitals and assessment, educatio n Plan: Manage pain, frequent vitals and assessment, educate pt on plan of care * End of Shift Note - Jess Toscano RN - 12/18/2020 5:35 AM CDT End of Shift Summary and Plan of Care Patient reporting a lot of pain in biopsy site at beginning of shift - PRN Trama dol administered. Pt able to rest and no complaints of pain since 2099 last nigh t. O2 noted to be low, placed on 2L oxygen. Urine started ariana, but became clear and yellow by end of shift, no clots observed by this nurse. Sinus rhythm on tel e - order , tele removed. Goals per Patient Condition Fall Prevention Plan Patient will remain free from injury related to falls. See the Daily cares/safety flowsheet for intervention documentation. Goals/Plan for Shift Patient/Family stated goal for shift: Control pain, rest Nursing goal for shift: Pain management, safety, monitor I&O, rest Plan: Assess pain and treat per MAR, frequent rounding, monitor urine appearance , cluster care Goals/Plan for Hospital Stay Patient/Family stated goal for hospital stay: Get better and go home Nursing goal for hospital stay: Pain management, vitals and assessment, educatio n Plan: Manage pain, frequent vitals and assessment, educate pt on plan of care * End of Shift Note - Janiya Olmstead RN - 12/17/2020 7:00 PM CDT End of Shift Summary and Plan of Care Pt alert and oriented. Independent. No pain until after kidney biopsy. 7-8/10 after the biopsy. IR MD added NORCO to pt's pain medication list. Pt noted to look calm in bed when pain 810, post Tramadol and Tylenol administration. L k idney biopsy done today. IR checked and manipulated the nonworking dialysis cat heter today as well. Blood sugar this morning 75 while NPO, D 5 1/2 NS started at 50 mL/hr and discontinued after biopsy when pt could eat. Goals/Plan for Shift Patient/Family stated goal for shift: Rest and get biopsy done Nursing goal for shift: Prevent adverse events, encourage comfort, maintain safe ty Plan: Frequent rounding, cluster care, PRN medication, encourage patient to yoshi tor own pain Goals/Plan for Hospital Stay Nursing goal for hospital stay: Plan: * Sedation Documentation - Carlo Atkinson MD - 12/17/2020 11:00 AM CDT Pre-Moderate Sedation (Sedation/Analgesia) Physician Evaluation Date: 12/17/2020 Chief complaint/ History of present illness/ Indication for procedure: Patient Active Problem List Diagnosis SNOMED CT(R) VALERIE (acute kidney injury) (HCC) ACUTE INJURY OF KIDNEY Type 1 diabetes mellitus with hyperglycemia (HCC) HYPERGLYCEMIA DUE TO TYPE 1 DIABETES MELLITUS Hypertension HYPERTENSIVE DISORDER Vaccine counseling COUNSELING PROCEDURE WITH EXPLICIT CONTEXT Depression DEPRESSIVE DISORDER Noncompliance with diabetes treatment NONCOMPLIANCE WITH TREATMENT Tobacco abuse 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 Urinary tract infection without hematuria URINARY TRACT INFECTIOUS DISEASE Acute kidney injury superimposed on chronic kidney disease (HCC) ACUTE RENAL FAILURE SYNDROME Anemia ANEMIA Nephrolithiasis KIDNEY STONE Dyslipidemia DYSLIPIDEMIA Nephrotic syndrome NEPHROTIC SYNDROME Headache, unspecified headache type HEADACHE Planned Procedure/ Treatment: Orders Placed This Encounter Procedures Culture, Urine Culture, Blood XR Chest single view frontal IR Non Tunneled Dialysis catheter placement US Guided Biopsy Kidney CT Head wo contrast US Scrotal IR Tunneled Dialysis catheter check Urinalysis Reflex Urinalysis Microscopic Only Troponin NTproBNP CBC and Diff (manual diff if necessary) Comprehensive Metabolic Panel Lipase Urinalysis Reflex Lactate Venous WB - 0hr STAT COVID-19 [place] Admission PCR (non-PUI) Renal Panel Complete Blood Count GLUCOSE POC GLUCOSE POC GLUCOSE POC Clostridium Difficile Toxin by PCR GLUCOSE POC Magnesium GLUCOSE POC GLUCOSE POC GLUCOSE POC GLUCOSE POC GLUCOSE POC GLUCOSE POC GLUCOSE POC GLUCOSE POC GLUCOSE POC GLUCOSE POC GLUCOSE POC GLUCOSE POC GLUCOSE POC GLUCOSE POC GLUCOSE POC GLUCOSE POC GLUCOSE POC Diet-Hemodialysis, Consistent Carbohydrate Direct all care questions and questions about admitting orders to the admitt ing physician No analgesic medication necessary Daily weights Notify physician Vital signs Place sequential compression device Maintain sequential compression device Do not hold any scheduled insulin without contacting physician for order Use correction insulin with each glucose check for those patients with diet restriction of NPO, or on continuous sources of enteral/parenteral nutrition Notify physician - Patient's status is changed to NPO Notify physician - Steroid dose/formulation changes Hypoglycemia management instructions AA Nursing communication Check [id number] x1. Notify urology (nuvia lagos) if PVR >250cc Frequent Vital Signs, Post Procedure Site and Pulse Assessment Oxygen: per nasal cannula, If SpO2 < 90% titrate to keep SpO2 > or equal to 90% Elevate HOB Strict intake and output Verify patient does not have any of the following containdications to Erythr opoietic-Stimulating Agents (ESAs) Treatment Notify physician Full code Consult to Urology Consult to Infectious Disease Consult to Hematology/Oncology Consult to Nephrology Consult to Care Progression Electrocardiogram (ECG) Insert peripheral IV ([place]) Hemodialysis inpatient Hemodialysis inpatient ED Admit to Inpatient w BR Test: @ORDDX@ Preparations: procedure risks, benefits and options explained to patient, consent signed (if a pplicable), pulse oximeter, oxygen (if applicable) and IV access (if applicable) Airway: Mallampati Classification:Class 2 - Tonsillar pillars and uvula hidden by base o f tongue Atlantoaxial range of motion (neck extension): more than 60 degrees Hyomental distance (fingerbreadths under chin): 3 Assessment Sedation: Acceptable candidate ASA Classification: P2. Patient with mild systemic disease Plan for Anesthesia: Moderate Physician signature of this note indicates that the following has been completed : - Reviewed patient history including medications, allergies, and labs - Physical exam completed and documented within 24 hours of administering Modera te Sedation -I had discussions by phone with Dr Loja and Dr Stanton who believed it reason able to proceed with biopsy in regard to infectious risk. - Airway assessment completed - Prior to the time of the procedure above described, I explained to the patient and to any person who has consented to the procedure on the patient's behalf, t he nature, purpose, benefits, and risks of the procedure and Moderate Sedation a s stated as well as possible alternative options. I have further discussed possi ble consequences of the procedure and Moderate Sedation, the principal risks inv olved, and the possible complications. * End of Shift Note - Brenda Helton RN - 12/17/2020 6:32 AM CDT End of Shift Summary and Plan of Care A&Ox4, RA, Normal Sinus on tele, patient stated anxiety about upcoming procedure on 12/17, patient rested during the night, medication given as ordered, no acute events, no needs expressed at this time, will continue to monitor. Goals per Patient Condition Fall Prevention Plan Patient will remain free from injury related to falls. See the Daily cares/safety flowsheet for intervention documentation. Goals/Plan for Shift Patient/Family stated goal for shift: Get some rest Nursing goal for shift: Prevent adverse events, encourage comfort, maintain safe ty Plan: Frequent rounding, cluster care, PRN medication, encourage patient to yoshi tor own pain Goals/Plan for Hospital Stay Nursing goal for hospital stay: Plan: * End of Shift Note - Latha Roche RN - 12/16/2020 5:58 PM CDT End of Shift Summary and Plan of Care Patients IV fluids changed to NS from sodium bicarb. Per Dr. David, patient renu gambino need renal biopsy tomorrow. Plan to evaluate need for HD tomorrow. Patient renu gambino be NPO at midnight for biopsy. Patient BP continued to be elevated throughout the day. Patient complaining of headache. Headache treated with PRN medication, see MAR. Goals per Patient Condition Fall Prevention Plan Patient will remain free from injury related to falls. See the Daily cares/safety flowsheet for intervention documentation. Goals/Plan for Shift Patient/Family stated goal for shift: Comfort. Nursing goal for shift: Pain management, accurate I&O. Plan: Monitor pain, provide PRN as indicated. Educate patient on importance of I &O Goals/Plan for Hospital Stay Nursing goal for hospital stay: Plan: * End of Shift Note - Nell Saini RN - 12/16/2020 6:46 AM CDT End of Shift Summary and Plan of Care No events overnight. Pt c/o headache in the beginning of the shift., pain meds given as needed. Call light within reach. Goals per Patient Condition Fall Prevention Plan Patient will remain free from injury related to falls. See the Daily cares/safety flowsheet for intervention documentation. Goals/Plan for Shift Patient/Family stated goal for shift: No headache Nursing goal for shift: Pain management, Plan: Administer pain meds as needed, stict I & Os Goals/Plan for Hospital Stay Nursing goal for hospital stay: Plan: * End of Shift Note - Jess Campoverde RN - 12/15/2020 6:00 PM CDT End of Shift Summary and Plan of Care Patient up in recliner eating dinner. Denies pain at this time. Dialysis nurse francia n this morning et tried to dialyse patient, Catheter not working. Hospitalist no tified et stated since it is not an emergency could wait until Thursday to follow up with IR. Nephrology notified too. New orders for strict I&O's. No acute concerns at this time. Assessment per flow sheet. Goals per Patient Condition Fall Prevention Plan Patient will remain free from injury related to falls. See the Daily cares/safety flowsheet for intervention documentation. Goals/Plan for Shift Patient/Family stated goal for shift: To be able to get dialysed and go home Nursing goal for shift: Pain management, Follow up on dialysis. Plan: Administer PRN pain medications as ordered. Update patient on dialysis and if catheter will be checked by IR this weekend. Goals/Plan for Hospital Stay Nursing goal for hospital stay: Plan: * End of Shift Note - Nell Saini RN - 12/15/2020 5:20 AM CDT End of Shift Summary and Plan of Care No acute events overnight. Pt denies pain or discomfort this shift. Dialysis not completed d/t catheter malfunction per dialysis nurse. Call light and personal items within reach. Goals per Patient Condition Fall Prevention Plan Patient will remain free from injury related to falls. See the Daily cares/safety flowsheet for intervention documentation. Goals/Plan for Shift Patient/Family stated goal for shift: Sleep Nursing goal for shift: Promote rest Plan: Cluster care Goals/Plan for Hospital Stay Nursing goal for hospital stay: Plan: * End of Shift Note - Jess Campoverde RN - 12/14/2020 5:15 PM CDT End of Shift Summary and Plan of Care Patient resting in bed at this time with spouse at the bedside. Patient c/o inte rmittent headaches relieved by Fioricet. Patient suppose to be getting dialysis this evening. Patient able to voice concerns. No acute concerns at this time. As sessments per flow sheet. Will continue to monitor patient. Goals per Patient Condition Fall Prevention Plan Patient will remain free from injury related to falls. See the Daily cares/safety flowsheet for intervention documentation. Goals/Plan for Shift Patient/Family stated goal for shift: Feel better and go home Nursing goal for shift: Pain control, blood sugar checks, and cardiac monitoring , Following up with dialysis Plan: Assess and monitor pt's pain and need for meds per MAR, ACHS blood sugar c hecks, and tele monitoring. Goals/Plan for Hospital Stay Nursing goal for hospital stay: Plan: * Care Progression Initial Assessment - Demetra Mayorga RN - 12/14/2020 1:22 PM CDT Care Progression Initial Assessment Pt A&Ox4, lives at home with and children. Pt independent with ADL's. Pt states he is currently on short term disability. No DME noted. No advance directive, CC to provide paperwork. Hx of acute rehab ([facility] in [place], [place]) s/p stroke in 2019, no hx of HH. Demo, PCP, pharmacy, insurance verified. .Demetra Mayorga, 12/14/2020 1:32 PM Discharge Plan [place] [facility] [place] [facility] [place] Comments: Patient Information Information Obtained: Pt Primary Caregiver : Self Support Systems: Spouse/significant other, Children Living Arrangements: Spouse/significant other Type of Residence: Private residence without support Current Home Health Services: No Transportation Transportation at Discharge: Spouse Transportation at Appointments: Self Functional Capacity & DME Assistive Devices: None Respiratory Items: Current & Past Services Current Resources Available: Past Facility Placements: [place] s/p stroke Financial/Income Information Financial Hardship: Verified that patients primary care physician is Carmelita Avila APRN and amie ves their medications from [address] [address] Demetra Mayorga, 12/14/2020 1:22 PM * End of Shift Note - Ely Vivas RN - 12/14/2020 6:40 AM CDT End of Shift Summary and Plan of Care Pt A&O x4, RA. Beginning of shift, pt had c/o headache pain. Hospitalist notified for pt specific requested med, see MAR. C. Diff isolation results negative. Pt NPO since midnight. No further acute events during shift. Goals per Patient Condition Fall Prevention Plan Patient will remain free from injury related to falls. See the Daily cares/safety flowsheet for intervention documentation. Goals/Plan for Shift Patient/Family stated goal for shift: To go home soon. Nursing goal for shift: Pain control, blood sugar checks, and cardiac monitoring . Plan: Assess and monitor pt's pain and need for meds per MAR, ACHS blood sugar c hecks, and tele monitoring. Goals/Plan for Hospital Stay Nursing goal for hospital stay: Plan: * End of Shift Note - Jess Campoverde RN - 12/13/2020 6:14 PM CDT End of Shift Summary and Plan of Care Patient admit from the ED. Alert et oriented. Able to voice concerns. Denies wan n at this time. ISO for R/O C-Diff. Will monitor. Goals per Patient Condition Fall Prevention Plan Patient will remain free from injury related to falls. See the Daily cares/safety flowsheet for intervention documentation. Goals/Plan for Shift Patient/Family stated goal for shift: Feel better Nursing goal for shift: Free of pain, dialysed, vitals stable, no falls/injury,n o soa, blood sugar>100 and <200 Plan: Assess patient, monitor labs and vitals, assist with transfers, give medic ation as ordered, coordinate with treatment team, Goals/Plan for Hospital Stay Nursing goal for hospital stay: Plan: * Assessment & Plan Note - Temitope Horton MD - 12/13/2020 3:20 PM CDT Associated Problem(s): Headache, unspecified headache type (Deleted) -With sinus tenderness -CT head consistent with mastoiditis augmentin 12/21 -Continues to have refractory headache, appreciate neurology recommendations * End of Shift Note - Rayne Childers RN - 12/13/2020 6:25 AM CDT End of Shift Summary and Plan of Care Pt rested well overnight. Alert and oriented. Denies discomfort. NPO since [facility] for kidney biopsy and dialysis catheter placement today. Goals/Plan for Shift Patient/Family stated goal for shift: "to figure out what is going on" Nursing goal for shift: monitor kidney function, treat uti Plan: IV antibiotic, nephro consult for initiation of dialysis Goals/Plan for Hospital Stay Nursing goal for hospital stay: Plan: * Assessment & Plan Note - Bruce Samayoa MD - 12/12/2020 7:53 PM CDT Associated Problem(s): Nephrotic syndrome -Likely diabetic nephropathy -Per nephrology * Assessment & Plan Note - Temitope Horton MD - 12/12/2020 7:51 PM CDT Associated Problem(s): Acute kidney injury superimposed on chronic kidney diseas e (HCC) -Cr reported to be 1-1.3 in 04/2020 -Progressive worsening with signs of nephrotic syndrome -Status post right IJ temporary hemodialysis catheter placement --->delayed today due to dialysis. IR will now do permanent line tomorrow. -s/p renal biopsy, preliminary report suggesting possible diabetic nephropathy -Nephrology on board -Currently receiving hemodialysis per nephrology, plans for permacath placement * Assessment & Plan Note - Bruce Samayoa MD - 12/12/2020 7:51 PM CDT Associated Problem(s): Anemia due to chronic kidney disease -Could be related to renal disease iron studies unremarkable -EPO given per nephrology -Transfuse to keep hemoglobin more than 7 * Assessment & Plan Note - Bruce Samayoa MD - 12/12/2020 7:51 PM CDT Associated Problem(s): Dyslipidemia -Resumed home statin * Assessment & Plan Note - Bruce Samayoa MD - 12/12/2020 7:51 PM CDT Associated Problem(s): Hypertension -Resumed home dose of amlodipine, Coreg, hydralazine -Continues to be suboptimally controlled, uptitrated the dose of amlodipine and subsequently hydralazine * Assessment & Plan Note - Bruce Samayoa MD - 12/12/2020 7:50 PM CDT Associated Problem(s): Nephrolithiasis -Urology recommended outpatient follow-up * Assessment & Plan Note - Temitope Horton MD - 12/12/2020 7:49 PM CDT Associated Problem(s): Type 1 diabetes mellitus with hyperglycemia (HCC) -A1C 12.4 on 11/26/20 -Resumed Levemir, dosing being adjusted -Additional sliding scale insulin coverage. - reviewing last 24 hrs and changes being made * Assessment & Plan Note - Temitope Horton MD - 12/12/2020 7:47 PM CDT Associated Problem(s): Urinary tract infection without hematuria -Blood cultures negative, urine cultures growing MSSA Had been changed to keflex 12/20, but ID agreed changing to cover sinuses and ma stoid bone - augmentin empirically 12/21 -Appreciate urology consult, no active intervention for nephrolithiasis documented in this encounter Plan of Treatment Not on filedocumented as of this encounter Procedures Comments Procedure Name Priority Date/Time Associated Diag nosis GLUCOSE POC Timed 12/25/2020 12:58 PM CDT IR TUNNELED DIALYSIS Routine 12/25/2020 CATHETER PLACEMENT 11:59 AM CDT GLUCOSE POC Timed 12/25/2020 7:40 AM CDT GLUCOSE POC Timed 12/25/2020 3:08 AM CDT RENAL PANEL Timed 12/25/2020 2:45 AM CDT COMPLETE BLOOD COUNT Routine 12/25/2020 2:45 AM CDT GLUCOSE POC Timed 12/24/2020 11:58 PM CDT GLUCOSE POC Timed 12/24/2020 8:23 PM CDT GLUCOSE POC Timed 12/24/2020 5:47 PM CDT GLUCOSE POC Timed 12/24/2020 12:54 PM CDT HEMODIALYSIS INPATIENT Routine 12/24/2020 11:04 AM CDT GLUCOSE POC Timed 12/24/2020 7:36 AM CDT RENAL PANEL Timed 12/24/2020 5:00 AM CDT COMPLETE BLOOD COUNT Routine 12/24/2020 5:00 AM CDT GLUCOSE POC Timed [...] GLUCOSE POC Routine 12/22/2020 7:59 AM CDT ERYTHROPOIETIN (EPO) Timed 12/22/2020 4:11 AM CDT RENAL PANEL Routine 12/22/2020 4:11 AM CDT MAGNESIUM Add-On 12/22/2020 4:11 AM CDT IRON/TRANSFERRIN Timed 12/22/2020 4:11 AM CDT FERRITIN Routine 12/22/2020 4:11 AM CDT COMPLETE BLOOD COUNT Routine 12/22/2020 4:11 AM CDT GLUCOSE POC Routine 12/21/2020 8:26 PM CDT GLUCOSE POC Routine 12/21/2020 3:55 PM CDT GLUCOSE POC Routine 12/21/2020 12:18 PM CDT GLUCOSE POC Routine 12/21/2020 7:57 AM CDT RENAL PANEL Routine 12/21/2020 4:20 AM CDT CBC AND DIFF (MANUAL DIFF Timed 12/21/2020 IF NECESSARY) 4:20 AM CDT GLUCOSE POC Routine 12/20/2020 9:44 PM CDT MRI HEAD WO CONTRAST Routine 12/20/2020 6:23 PM CDT GLUCOSE POC Routine 12/20/2020 4:52 PM CDT ERYTHROCYTE SEDIMENTATION Routine 12/20/2020 RATE 12:48 PM CDT GLUCOSE POC Routine 12/20/2020 11:38 AM CDT GLUCOSE POC Routine 12/20/2020 7:44 AM CDT HEMODIALYSIS INPATIENT Routine 12/20/2020 7:38 AM CDT RENAL PANEL Routine 12/20/2020 3:01 AM CDT HEPATITIS B SURFACE Routine 12/20/2020 ANTIGEN 3:01 AM CDT HEPATITIS B SURFACE STAT 12/20/2020 ANTIBODY QUANT 3:01 AM CDT HEPATITIS B CORETOTAL Routine 12/20/2020 ANTIBODY 3:01 AM CDT COMPLETE BLOOD COUNT Routine 12/20/2020 3:01 AM CDT GLUCOSE POC Routine 12/19/2020 8:20 PM CDT GLUCOSE POC Routine 12/19/2020 4:59 PM CDT LEGIONELLA URINE ANTIGEN Routine 12/19/2020 4:55 PM CDT GLUCOSE POC Routine 12/19/2020 11:14 AM CDT HEMODIALYSIS INPATIENT Routine 12/19/2020 8:59 AM CDT GLUCOSE POC Routine 12/19/2020 7:22 AM CDT DIFFERENTIAL, AUTO Routine 12/19/2020 3:30 AM CDT RENAL PANEL Routine 12/19/2020 3:30 AM CDT COMPLETE BLOOD COUNT Routine 12/19/2020 3:30 AM CDT GLUCOSE POC Routine 12/18/2020 9:08 PM CDT XR CHEST 2 VIEWS (PA AND Routine 12/18/2020 LATERAL) 7:16 PM CDT GLUCOSE POC Routine 12/18/2020 5:01 PM CDT GLUCOSE POC Routine 12/18/2020 11:28 AM CDT GLUCOSE POC Routine 12/18/2020 9:10 AM CDT GLUCOSE POC Routine 12/18/2020 8:09 AM CDT RENAL PANEL Routine 12/18/2020 3:24 AM CDT MAGNESIUM Routine 12/18/2020 3:24 AM CDT COMPLETE BLOOD COUNT Routine 12/18/2020 3:24 AM CDT GLUCOSE POC [...] OR Routine 12/17/2020 BIOPSY 7:18 AM CDT RENAL PANEL Routine 12/17/2020 3:21 AM CDT MAGNESIUM Routine 12/17/2020 3:21 AM CDT COMPLETE BLOOD COUNT Routine 12/17/2020 3:21 AM CDT GLUCOSE POC Routine 12/16/2020 8:15 PM CDT GLUCOSE POC Routine 12/16/2020 4:00 PM CDT GLUCOSE POC Routine 12/16/2020 11:55 AM CDT GLUCOSE POC Routine 12/16/2020 8:10 AM CDT RENAL PANEL Routine 12/16/2020 1:59 AM CDT MAGNESIUM Routine 12/16/2020 1:59 AM CDT COMPLETE BLOOD COUNT Routine 12/16/2020 1:59 AM CDT GLUCOSE POC [...] GLUCOSE POC Routine 12/14/2020 8:11 AM CDT RENAL PANEL Routine 12/14/2020 3:00 AM CDT MAGNESIUM Routine 12/14/2020 3:00 AM CDT COMPLETE BLOOD COUNT Routine 12/14/2020 3:00 AM CDT GLUCOSE POC [...] GLUCOSE POC Routine 12/13/2020 8:14 AM CDT RENAL PANEL Routine 12/13/2020 3:12 AM CDT COMPLETE BLOOD COUNT Routine 12/13/2020 3:12 AM CDT GLUCOSE POC Routine 12/12/2020 9:40 PM CDT SARS-COV-2 (COVID-19) Routine 12/12/2020 8:01 PM CDT CULTURE, BLOOD STAT 12/12/2020 7:50 PM CDT CULTURE, BLOOD STAT 12/12/2020 7:36 PM CDT ECG STAT 12/12/2020 6:53 PM CDT XR CHEST SINGLE VIEW STAT 12/12/2020 FRONTAL 6:35 PM CDT TROPONIN STAT 12/12/2020 6:16 PM CDT NTPROBNP STAT 12/12/2020 6:16 PM CDT LIPASE STAT 12/12/2020 6:16 PM CDT LACTATE VENOUS WB STAT 12/12/2020 6:16 PM CDT COMPREHENSIVE METABOLIC STAT 12/12/2020 PANEL 6:16 PM CDT CBC AND DIFF (MANUAL DIFF STAT 12/12/2020 IF NECESSARY) 6:16 PM CDT URINALYSIS MICROSCOPIC STAT 12/12/2020 ONLY 5:47 PM CDT URINALYSIS REFLEX STAT 12/12/2020 5:47 PM CDT CULTURE, URINE STAT 12/12/2020 5:47 PM CDT documented in this encounter Results * GLUCOSE POC (12/25/2020 12:58 PM CDT) Only the most recent of 57 results within the time period is included. Glucose POC 140 (H) 70 - 100 mg/dL [facility] Specimen Blood - Blood Performing Organization Address City/State/ZIP Code P miranda Number [facility] [address] [place] [address] * IR Tunneled Dialysis catheter placement (12/25/2020 [...] - 12/25/2020 1:14 PM CDT Patient: SOMMER CALLAHAN Sex#: M #: 1975 Charanjit#: [id number] Location: [place] [address]- Ordering Provider: CARLOS HSIEH Procedure Requested: [id number] IR TUNNELED DIALYSIS CATHETER PLACEMENT Reason for [...] Carlo Atkinson MD - 12/25/2020 Patient: SOMMER CALLAHAN Sex#: M #: 1975 Charanjit#: [id number] Location: [facility] 3 338-01 Ordering Provider: CARLOS HSIEH Procedure Requested: [id number] IR TUNNELED DIALYSIS CATHETER PLACEMENT Reason for [...] with Versed and fentanyl. Performing Organization Address [facility] P miranda Number [facility] * Complete Blood Count (12/25/2020 2:45 AM CDT) Only the most recent of 11 results within the time period is included. WBC 7.68 4.00 - 11.00 TH/uL [facility] RBC 2.60 (L) 4.31 - 5.84 mil/uL [facility] Hemoglobin 7.9 (L) 13.0 - 17.0 g/dL [facility] Hematocrit 25 (L) 40 - 50 % [facility] MCV 96 80 - 99 fL [facility] MCH 30 27 - 34 pg [facility] MCHC 32 32 - 36 % [facility] RDW 13.2 9.0 - 14.5 % [facility] Platelet Count 252 140 - 400 Th/uL [facility] MPV 9.1 (L) 9.4 - 12.3 fL [facility] Nucleated RBCs 0 0 - 0 /100 WBC [facility] Specimen Blood - Blood Performing Organization Address [facility] P miranda Number [facility] [address] [place] [address] * Renal Panel (12/25/2020 2:45 AM CDT) Only the most recent of 11 results within the time period is included. Sodium 138.0 136.0 - 145.0 mEq/L [facility] Potassium 3.7 3.4 - 5.1 mEq/L [facility] Chloride 101 98 - 107 mEq/L [facility] Carbon Dioxide 31 20 - 31 mEq/L [facility] Anion Gap 6 5 - 17 mmol/L [facility] Calcium 8.3 8.3 - 10.6 mg/dL [facility] Glucose 183 (H) 70 - 100 mg/dL [facility] Albumin 3.2 (L) 3.5 - 5.0 g/dL [facility] Blood Urea 24 (H) 9 - 23 mg/dL [facility] Creatinine 2.80 (H) 0.70 - 1.30 mg/dL [facility] eGFR Female AA 22.0 mL/min/1.73m*2 [facility] eGFR Female 18.2 mL/min/1.73m*2 [facility] Non-AA [facility] eGFR Male AA 29.7 mL/min/1.73m*2 [facility] eGFR Male 24.5 mL/min/1.73m*2 [facility] Non-AA [facility] Phosphorus 3.9 2.4 - 5.1 mg/dL [facility] Specimen Blood - Blood Performing Organization Address City/State/ZIP Code P miranda Number [facility] [address] [place] [address] * Magnesium (12/22/2020 4:11 AM CDT) Only the most recent of 5 results within the time period is included. Magnesium 2.1 1.4 - 2.7 mg/dL [facility] Specimen Blood Performing Organization Address City/State/ZIP Code P miranda Number [facility] [address] [place] [address] LABORATORIES [facility] [address] [place] [address] * Erythropoietin (EPO) (12/22/2020 4:11 AM CDT) Erythropoietin 58.6 (H) 2.6 - 18.5 mIU/mL [facility] (EPO) Comment: [employer] UniCel DxI 800 Immunoassay System Values obtained with different assay methods or kits cannot be used interchangeably. Results cannot be interpreted as absolute evidence of the presence or absence of malignant disease. Performed at: - [facility] [id number] Lithographers Printer: Jeanie Clements MD, Phone: [phone] Specimen Performing Organization Address City/[facility]/ZIP Code P miranda Number [facility] [address] [place], [place] [address] [facility] Interface [id number] [place] [address] [place] [address] * Ferritin (12/22/2020 4:11 AM CDT) Pathologist [facility] Ferritin 87 20 - 300 ng/mL [facility] Comment: Hospital Lab Method: Siemens Atell[employer] Reference Ranges: Male: 10.5 - 307.3 ng/mL Female: 7.3 - 270.7 ng mL Specimen Blood Performing Organization Address [facility]/ZIP Code P miranda Number [address] [address] LABORATORIES [facility] [address] [place] [address] * Iron/Transferrin (12/22/2020 4:11 AM CDT) Pathologist [facility] Iron 54 50 - 180 ug/dL [facility] Transferrin 117 (L) 206 - 381 mg/dL [facility] Total 140 (L) 204 - 408 ug/dL [facility] Iron-Binding [facility] Capacity Iron/Transferri 38 15 - 50 % [facility] n % [facility] Specimen Blood Performing Organization Address City/[facility] Code P miranda Number [address] [address] LABORATORIES [facility] [address] [place] [address] * CBC and Diff (manual diff if necessary) (12/21/2020 4:20 AM CDT) Only the most recent of 2 results within the time period is included. WBC 8.31 4.00 - 11.00 TH/uL [facility] RBC 2.38 (L) 4.31 - 5.84 MIL/uL [facility] Hemoglobin 7.2 (L) 13.0 - 17.0 g/dL [facility] Hematocrit 22 (L) 40 - 50 % [facility] MCV 92 80 - 99 fL [facility] MCH 30 27 - 34 pg [facility] MCHC 33 32 - 36 % [facility] RDW 13.0 11.5 - 14.5 % [facility] Platelet Count 207 140 - 400 TH/uL [facility] MPV 9.0 (L) 9.4 - 12.3 fL [facility] Nucleated RBCs 0 0 - 0 /100 [facility] % Neutrophils 67 45 - 78 % [facility] %Lymphocytes 18 15 - 47 % [facility] % Monocytes 10 0 - 12 % [facility] %Eosinophils 4 0 - 7 % [facility] %Basophils 1 0 - 2 % [facility] % Imm Grans 1 0 - 1 % [facility] # Granulocytes 5.64 1.70 - 6.80 TH/uL [facility] # Lymphocytes 1.46 1.00 - 3.30 TH/uL [facility] # Monocytes 0.86 0.20 - 0.90 TH/uL [facility] # Eosinophils 0.30 0.00 - 0.40 TH/uL [facility] # Basophils 0.05 0.00 - 0.10 TH/uL [facility] Specimen Blood Performing Organization Address City/State/ZIP Code P miranda Number [facility] [address] [place] [id number] [facility] [address] [place] [address] * MRI Head wo contrast (12/20/2020 6:23 PM CDT) Modality Anatomical Region Laterality Magnetic Resonance Head Specimen Impressions [facility] - 12/20/2020 7:18 PM CDT Old infarcts [...] peripheral left maxillary mucosal thickening seen. Narrative [facility] - 12/20/2020 7:18 PM CDT Patient: SOMMER CALLAHAN Sex#: M #: 1975 Charanjit#: [id number] Location: [place] [address] Ordering Provider: HOLLEY TERRAZAS Procedure Requested: [id number] MRI HEAD WO CONTRAST Reason for Exam: [...] Max Domínguez MD - 12/20/2020 Patient: SOMMER CALLAHAN Sex#: M #: 1975 Charanjit#: [id number] Location: [facility] 3 338-01 Ordering Provider: HOLLEY TERRAZAS Procedure Requested: [id number] MRI HEAD WO CONTRAST Reason for Exam: [...] maxillary mucosal thickening seen. Performing Organization Address City/[facility] Code P miranda Number [facility] * Erythrocyte Sedimentation Rate (12/20/2020 12:48 PM CDT) Pathologist [facility] Sed Rate 125 (H) 0 - 12 mm/h [facility] Specimen Blood Narrative [facility] - 12/20/2020 1:39 PM CDT This order is a replacement of the rejected order with accession number [id number]. Performing Organization Address City/[facility] Code P miranda Number [facility] [address] [place] [address] [facility] [address] [place] [address] * Hepatitis B Surface Antibody Quant (12/20/2020 3:01 AM CDT) Pathologist [facility] Hepatitis B <1.0 mIU/mL [facility] Surface Ab QT Comment: Hospital Lab In patients who have received the Hepatitis B vaccine, an antibody level of 10 mIU/mL or greater is indicative of immunity. Specimen Blood Performing Organization Address City/[facility]/ZIP Code P miranda Number [facility] [address] [place] [address] LABORATORIES [facility] [address] [place] [address] * Hepatitis B CoreTotal Antibody (12/20/2020 3:01 AM CDT) Hepatitis B Non-reactive Non-reactive [facility] Total Ab [facility] Specimen Blood Performing Organization Address City/[facility]/ZIP Code P miranda Number [facility] [address] [place] [address] LABORATORIES [facility] [address] [place] [address] * Hepatitis B Surface Antigen (12/20/2020 3:01 AM CDT) Hepatitis B Non-reactive Non-reactive [facility] Specimen Blood Performing Organization Address City/[facility]/ZIP Code P miranda Number [facility] [address] [place] [address] LABORATORIES [facility] [address] [place] [address] * Legionella Urine Antigen (12/19/2020 4:55 PM CDT) Legionella Negative Negative [facility] Urine Antigen [facility] Specimen Urine Performing Organization Address City/State/ZIP Code P miranda Number [facility] [address] [place] [address] LABORATORIES [facility] [address] [place] [address] * Differential, Auto (12/19/2020 3:30 AM CDT) % Neutrophils 65 45 - 78 % [facility] %Lymphocytes 17 15 - 47 % [facility] % Monocytes 14 (H) 0 - 12 % [facility] %Eosinophils 3 0 - 7 % [facility] %Basophils 1 0 - 2 % [facility] % Imm Grans 1 0 - 1 % [facility] # Granulocytes 5.39 1.70 - 6.80 TH/uL [facility] # Lymphocytes 1.37 1.00 - 3.30 TH/uL [facility] # Monocytes 1.15 (H) 0.20 - 0.90 TH/uL [facility] # Eosinophils 0.25 0.00 - 0.40 TH/uL [facility] # Basophils 0.04 0.00 - 0.10 TH/uL [facility] Specimen Blood Performing Organization Address City/State/ZIP Code P miranda Number [facility] [address] [place] [phone] [facility] [address] [place] [address] * XR Chest 2 views (PA and [...] - 12/18/2020 8:18 PM CDT Patient: SOMMER CALLAHAN Sex#: M #: 1975 Charanjit#: [id number] Location: [place] [address] Ordering Provider: CARLOS HSIEH Procedure Requested: [id number] XR CHEST 2 VIEWS (PA AND LATERAL) [...] Max Domínguez MD - 12/18/2020 Patient: SOMMER CALLAHAN Sex#: M #: 1975 Charanjit#: [id number] Location: [facility] 3 338- Ordering Provider: CARLOS HSIEH Procedure Requested: [id number] XR CHEST 2 VIEWS (PA AND LATERAL) [...] Organization Address City/State/ZIP Code P miranda Number [facility] * IR Tunneled Dialysis catheter check (12/17/2020 11:55 AM CDT) Modality Anatomical Region Laterality X-Ray Angiography Chest, Neck, Vascular Specimen Impressions [facility] - 12/17/2020 3:50 PM CDT Successful repositioning of right IJ temporary hemodialysis catheter. Narrative [facility] - 12/17/2020 3:50 PM CDT Patient: SOMMER CALLAHAN Sex#: M #: 1975 Charanjit#: [id number] Location: [facility] 3 338- Ordering Provider: BRUCE SAMAYOA Procedure Requested: [id number] IR TUNNELED DIALYSIS CATHETER CHECK Reason for [...] Carlo Atkinson MD - 12/17/2020 Patient: SOMMER CALLAHAN Sex#: Donita #: 1975 Charanjit#: [id number] Location: [facility] 3 [facility]-01 Ordering Provider: BRUCE SAMAYOA Procedure Requested: [id number] IR TUNNELED DIALYSIS CATHETER CHECK Reason for [...] - 12/17/2020 1:12 PM CDT Patient: SOMMER CALLAHAN Sex#: Donita #: 1975 Charanjit#: [id number] Location: [facility] 3 338-01 Ordering Provider: HOLLY ALLEN Procedure Requested: [id number] US GUIDED BIOPSY KIDNEY Reason for Exam: [...] global sclerotic process. After discussion with pathology, [place] were removed. Hemostasis was achieved. There were no immediate complications. Procedure Note Carlo Atkinson MD - 12/17/2020 Patient: SOMMER CALLAHAN Sex#: M #: 1975 Charanjit#: [id number] Location: [place] [address]- Ordering Provider: HOLLY ALLEN Procedure Requested: [id number] US GUIDED BIOPSY KIDNEY Reason for Exam: [...] global sclerotic process. After discussion with pathology, [place] were removed. Hemostasis was achieved. There were [...] Code P miranda Number [facility] [address] [facility] [place] [address] [address] * US Scrotal (12/13/2020 4:47 PM CDT) Modality Anatomical Region Laterality Ultrasound Pelvis Specimen Impressions [facility] - 12/13/2020 4:49 PM CDT 1. 4 mm x 3 mm x 4 mm right epididymal cyst. 2. Otherwise, negative ultrasound of the scrotum and testicles bilaterally. Narrative [facility] - 12/13/2020 4:49 PM CDT Patient: SOMMER CALLAHAN Sex#: M #: 1975 Charanjit#: [id number] Location: [facility]-04 Ordering Provider: AKIKO REICH Procedure Requested: [id number] US SCROTAL Reason for Exam: retroperitoneal lymphadenopathy [...] Lorenzo Arrieta MD - 12/13/2020 Patient: SOMMER CALLAHAN Sex#: M #: 1975 Charanjit#: [id number] Location: [facility]-04 Ordering Provider: AKIKO REICH Procedure Requested: [id number] US SCROTAL Reason for Exam: retroperitoneal lymphadenopathy [...] Organization Address City/State/ZIP Code P miranda Number [facility] * CT Head wo contrast (12/13/2020 3:41 [...] - 12/13/2020 5:08 PM CDT Patient: SOMMER CALLAHAN Sex#: M #: 1975 Charanjit#: [id number] Location: [place] [address] Ordering Provider: BRUCE SAMAYOA Procedure Requested: [id number] CT HEAD WO CONTRAST Reason for Exam: [...] Buster Mehta MD - 12/13/2020 Patient: SOMMER CALLAHAN Sex#: M #: 1975 Charanjit#: [id number] Location: [place] [address] Ordering Provider: BRUCE SAMAYOA Procedure Requested: [id number] CT HEAD WO CONTRAST Reason for Exam: [...] to patient size -Use of iterative reconstruction technQuick Hang ue -CT scan done according to ALARA, or ALA RA/IMAGE GENTLY Performing Organization Address City/State/ZIP Code P miranda Number [facility] * Clostridium Difficile Toxin by PCR (12/13/2020 3:30 PM CDT) C difficile Not Detected Not Detected [facility] Toxin by PCR [facility] Specimen Stool Performing Organization Address City/State/ZIP Code P imranda Number [facility] [address] [place] [address] [facility] [address] [place] [address] * IR Non Tunneled Dialysis catheter placement (12/13/2020 2:33 PM CDT) Modality Anatomical Region Laterality X-Ray Angiography Vascular, Chest, Neck Specimen Impressions [facility] - 12/13/2020 5:28 PM CDT Successful placement of right internal jugular triple-lumen temporary hemodialysis catheter. Narrative [facility] - 12/13/2020 5:28 PM CDT Patient: SOMMER CALLAHAN Sex#: M #: 1975 Charanjit#: [id number] Location: [facility]- Ordering Provider: CARLOS HSIEH Procedure Requested: [id number] IR NON TUNNELED DIALYSIS CATHETER PLACEMENT Reason [...] Holly Allen MD - 12/13/2020 Patient: SOMMER CALLAHAN Sex#: M #: 1975 Charanjit#: [id number] Location: [facility] [place]-04 Ordering Provider: CARLOS HSIEH Procedure Requested: [id number] IR NON TUNNELED DIALYSIS CATHETER PLACEMENT Reason [...] triple-lumen temporary hemodialysis catheter. Performing Organization Address City/[facility]/ZIP Code P miranda Number [facility] * COVID-19 [place] Admission PCR (non-PUI) (12/12/2020 8:01 PM CDT) Pathologist [facility] SARS-CoV-2 PCR NegativeComment: This RT-PCR Negative [facility]'s test has been authorized by Hospital Lab the FDA under an Emergency Use Authorization (EUA) for use by authorized laboratories. Performed on the [employer] Aptima SARS-CoV-2 assay, which utilizes Access Spec Mediated Amplification (TMA) technology Specimen NASOPHARYNGEAL SWAB Performing Organization Address City/[facility]/ZIP Code P miranda Number [address] [address] LABORATORIES [facility] [address] [place] [address] * Culture, Blood (12/12/2020 7:50 PM CDT) Only the most recent of 2 results within the time period is included. Pathologist [facility] Culture Result No Growth at 5 days [facility] Specimen Blood Performing Organization Address City/[facility]/ZIP Code P miranda Number [facility] [address] [place] [address] LABORATORIES [facility] [address] [place] [address] * Electrocardiogram (ECG) (12/12/2020 6:53 PM CDT) QRSd 96 [facility] QT 356 [facility] QTC 482 [facility] ECGHR 110 [facility] ECGPR 160 [facility] Specimen Narrative [facility] - 12/12/2020 6:56 PM CDT [facility] Test Date: 2020-12-12 Pat Name: SOMMER CALLAHAN Department: ERJ Room: [facility] 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: [id number] : 1975 Requested By: RAFA KRAMER Order Number: [id number] Reading MD: Measurements Intervals [place] Rate: 110 P: 58 WI: 160 QRS: 17 QRSD: 96 T: 75 QT: 356 QTc: 482 Interpretive Statements SINUS TACHYCARDIA BORDERLINE PROLONGED QT INTERVAL Procedure Note 12/12/2020 [facility] Test Date: 2020-12-12 Pat Name: SOMMER CALLAHAN Department: ER Room: [facility] 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: [id number] : 1975 Requested By: RAFA KRAMER Order Number: [id number] Reading MD: Measurements Intervals [place] Rate: 110 P: 58 WI: 160 QRS: 17 QRSD: 96 T: 75 QT: 356 QTc: 482 Interpretive Statements SINUS TACHYCARDIA BORDERLINE PROLONGED QT INTERVAL Performing Organization Address [facility] Code P miranda Number [facility] * XR Chest single view frontal (12/12/2020 6:35 PM CDT) Modality Anatomical Region Laterality Computed Radiography Chest Specimen Impressions [facility] - 12/12/2020 7:16 PM CDT No evidence of acute cardiopulmonary disease. Narrative [facility] - 12/12/2020 7:16 PM CDT Patient: SOMMER CALLAHAN Sex#: M #: [id number] Charanjit#: [id number] Location: [facility]-04 Ordering Provider: RAFA KRAMER Procedure Requested: [id number] XR CHEST SINGLE VIEW FRONTAL Reason for Exam: SOA Exam Ordered: 12/12/2020 1803 Begin exam date/time: 12/12/2020 182 Exam Date/Time: 12/12/2020 183 EXAMINATION: Portable AP chest radiograph CLINICAL INFORMATION: SOA; COMPARISON: None FINDINGS: Cardiomediastinal silhouette is within normal limits. Lung bases are clear. There is no evidence of focal infiltrate, effusion, or pneumothorax on this portable AP chest radiograph. Procedure Note Teddy Clay MD - 12/12/2020 Patient: SOMMER CALLAHAN Sex#: M #: [id number] Charanjit#: [id number] Location: [facility] TALISHA-04 Ordering Provider: RAFA KRAMER Procedure Requested: [id number] XR CHEST SINGLE VIEW FRONTAL Reason for [...] of acute cardiopulmonary disease. Performing Organization Address City/State/ZIP Code P miranda Number [place] * Lactate Venous WB - 0hr STAT (12/12/2020 6:16 PM CDT) Lactate Venous 0.8 0.0 - 2.0 mmol/L [facility] Specimen Blood Performing Organization Address City/State/ZIP Code P miranda Number [facility] [id number] [place] [address] [facility] [id number] [place] [address] * Lipase (12/12/2020 6:16 PM CDT) Lipase 304 (H) 23 - 300 IU/L [facility] Specimen Blood Performing Organization Address City/[facility] Code P miranda Number [facility] [address] [place] [address] [facility] [address] [place] [address] * Comprehensive Metabolic Panel (12/12/2020 6:16 PM CDT) Sodium 140 133 - 147 MEQ/L [facility] Potassium 5.1 3.5 - 5.3 MEQ/L [facility] Chloride 119 (H) 96 - 112 MEQ/L [facility] Carbon Dioxide 18 (L) 20 - 32 MEQ/L [facility] Anion Gap 3 (L) 5 - 17 [facility] Calcium 7.7 (L) 8.4 - 10.5 mg/dL [facility] Glucose 135 (H) 70 - 100 mg/dL [facility] Protein Total 6.0 6.0 - 8.2 g/dL [facility] Serum [facility] Albumin 3.0 (L) 3.5 - 5.0 g/dL [facility] Alkaline 74 42 - 140 IU/L [facility] Phosphatase [facility] Alanine 20 0 - 49 IU/L [facility] Aminotransferas [facility] e Aspartate 21 15 - 46 IU/L [facility] Aminotransferas [facility] e Bilirubin Total 0.2 0.2 - 1.3 mg/dL [facility] Blood Urea 48 (H) 7 - 26 mg/dL [facility] Nitrogen [facility] Creatinine 4.4 (H) 0.6 - 1.3 mg/dL [facility] eGFR Male AA 18 (L) 60 - 200 [facility] mL/min/1.73[facility] m [facility] eGFR Male 15 (L) 60 - 200 [facility] Non-AA mL/min/1.73sq m [facility] Specimen Blood Performing Organization Address City/[facility] P miranda Number [facility] [address] [place] [address] [facility] [id number] [place] [address] * NTproBNP (12/12/2020 6:16 PM CDT) Pathologist [facility] NTproBNP 1,190 pg/mL [place] Comment: [facility] NT-proBNP Reference Ranges: <50 yr <450 pg/mL 50-75 yr <900 pg/mL >75 yr <1800 pg/mL A cutoff value of 1200 pg/mL is recommended in patients 50 to 70 years of age with a GFR between 30 and 60. NT-proBNP is unreliable in patients with GFR <30. Specimen Blood Performing Organization Address [facility] P miranda Number [facility] [address] [place] [address] [facility] [address] [place] [address] * Troponin (12/12/2020 6:16 PM CDT) [facility] Troponin <0.01 0.00 - 0.03 ng/mL [facility] Comment: [facility] Troponin Value Interpretation 0.00 - 0.03 Healthy 0.04 - 0.12 Increased Cardiac Risk >0.12 Myocardial Infarction Troponin may not become elevated until 6 to 8 hours after onset of symptoms. Specimen Blood Performing Organization Address [facility] P miranda Number [facility] [address] [place] [phone] [facility] [address] [place] [address] * Culture, Urine (12/12/2020 5:47 PM CDT) [facility] Isolate 1 >100,000 Cfu/ml (A) [facility] Isolate 1 Methicillin Sensitive [facility] Staphylococcus aureus (A) [facility] Specimen Clean Voided Urine Antibiotic Method Susceptibility Organism OXACILLIN 0.5: Sensitive Methicillin sensitive Staphylococcus aureus LINEZOLID 2: Sensitive Methicillin sensitive Staphylococcus aureus NITROFURANTOIN <=16: Sensitive Methicillin sensitive Staphylococcus aureus SEPTRA/BACTRIM <=10: Sensitive Methicillin sensitive Staphylococcus aureus VANCOMYCIN 1.0: Sensitive Methicillin sensitive Staphylococcus aureus Performing Organization Address City/[facility]/ZIP Code P miranda Number [address] [address] LABORATORIES [facility] [address] [place] [address] * Urinalysis Microscopic Only (12/12/2020 5:47 PM CDT) Microscopic RBC 0-5 0 - 5 /hpf [facility] Microscopic WBC >40 (A) 0 - 5 /hpf [facility] Epithelial Absent Absent [facility] Cells [facility] Hyaline Cast Absent Absent [facility] Bacteria Small (A) Absent [facility] Specimen Clean Voided Urine Performing Organization Address [facility] Code P miranda Number [facility] [id number] [place], [place] [phone] [facility] [address] [place] [address] * Urinalysis Reflex (12/12/2020 5:47 PM CDT) Appearance, Yellow [facility] Glucose Urine 250 (A) Negative mg/dL [facility] Bilirubin Urine Negative Negative [facility] Ketones Urine Negative Negative mg/dL [facility] Specific 1.025 1.001 - 1.030 [facility] [place] Hemoglobin Small (A) Negative [...] Specimen Clean Voided Urine Performing Organization Address [facility] Code P miranda Number [facility] [address] [place] [phone] [facility] [id number] [place] [address] documented in this encounter Visit Diagnoses Diagnosis Acute kidney injury superimposed on chr onic kidney disease (HCC) - Primary Urinary tract infection without hematur ia, site unspecified Acute renal failure superimposed on chr onic kidney disease, unspecified CKD stage, unspecified acute renal failure type (HCC) Nephrolithiasis Calculus of kidney Headache, unspecified headache type Type 1 diabetes mellitus with hyperglyc emia (HCC) Hypertension Unspecified essential hypertension Anemia due to chronic kidney disease Dyslipidemia Other and unspecified hyperlipidemia Nephrotic syndrome Nephrotic syndrome with unspecified pat hological lesion in kidney Mastoiditis of left side Strain of muscle, fascia and tendon at neck level, initial encounter documented in this encounter Admitting Diagnoses Diagnosis Urinary tract infection without hematur ia documented in this encounter Administered Medications Action Date Dose Rate Site Medication Order MAR Action 12/17/2020 11:59 PM CDT 650 mg acetaminophen (TYLENOL) tablet 650 mg Given 650 mg, Oral, Every 6 hours PRN, mild pain (pain score 1-3), fever, Starting on Ellie 12/13/20 at 0002, Do not exceed 4 GM/DAY of acetaminophen. If 65 or olde r do not exceed 3 GM/DAY. If chronic alcoholic do not exceed 2 GM/DAY. 650 mg Given 12/17/2020 1:44 PM CDT 650 mg Given 12/16/2020 4:29 PM CDT 12/25/2020 8:34 AM CDT 10 mg amLODIPine (NORVASC) tablet 10 mg Given 10 mg, Oral, Daily, Indications: hypertension, First dose (after last modification) on Thu12/16/20 at 0900, Hold if systolic blood pressure less than 110 10 mg Given 12/24/2020 8:27 AM CDT 10 mg Given 12/23/2020 9:25 AM CDT 12/15/2020 8:01 AM CDT 5 mg amLODIPine (NORVASC) tablet 5 mg Given 5 mg, Oral, Daily, Indications: hypertension, First dose on Ellie 1 at 0900 5 mg Given 12/14/2020 9:38 AM CDT 5 mg Given 12/13/2020 9:03 AM CDT 12/25/2020 8:33 AM CDT 1 tablet amoxicillin-clavulanate (AUGMENTIN) Given 500-125 mg per tablet 1 tablet 1 tablet, Oral, Daily, Indications: OTITIS, First dose on Thu12/21/20 at 1130, Administer dose after dialysis on dialysis days 1 tablet Given 12/24/2020 8:27 AM CDT 1 tablet Given 12/23/2020 9:24 AM CDT 12/24/2020 9:03 PM CDT 20 mg atorvastatin (LIPITOR) tablet 20 mg Given 20 mg, Oral, Nightly, First dose on Thu12/12/20 at 2100 20 mg Given 12/23/2020 9:19 PM CDT 20 mg Given 12/22/2020 10:08 PM CDT 12/24/2020 10:27 PM CDT 1 tablet mvaoozsswr-nihwnmihsigsc-nnkdgyqt Given (FIORICET, ESGIC) per tablet 1 tablet 1 tablet, Oral, Every 4 hours PRN, headaches, Starting on Ellie 12/13/20 at 2101, Do not exceed 4 GM/DAY of acetaminophen. If 65 or older do not exceed 3 GM/DAY. If chronic alcoholic d o not exceed 2 GM/DAY. 1 tablet Given 12/24/2020 5:11 PM CDT 1 tablet Given 12/22/2020 4:45 PM CDT 12/25/2020 1:30 PM CDT 1,334 mg calcium acetate(phosphat bind) (PHOSLO) Given capsule 1,334 mg 1,334 mg, Oral, 3 times daily with meals, First dose on Ellie 12/13/20 at 1845, Swallow capsule whole 1,334 mg Given 12/24/2020 5:11 PM CDT 1,334 mg Given 12/24/2020 3:24 PM CDT 12/25/2020 8:35 AM CDT 6.25 mg caRVEDILol (COREG) tablet 6.25 mg Given 6.25 mg, Oral, 2 times daily with meals , First dose on Thu12/12/20 at 1949, Hol d if HR < 60 or SBP < 100. 6.25 mg Given 12/24/2020 5:11 PM CDT 6.25 mg Given 12/24/2020 8:27 AM CDT 12/20/2020 12:33 PM CDT 1 g ceFAZolin (ANCEF) injection 1 g New Bag 1 g, Intravenous, Daily, Indications: UTI, First dose on Ellie 12/13/20 at 1637 , If giving IV push, reconstitute each vial with 10 ml sterile water and give over 3-5 minutes. If sterile water is unavailable, may use Bacteriostatic Water or Normal Saline for reconstitution 1 g New Bag 12/19/2020 8:00 AM CDT 1 g New Bag 12/18/2020 9:11 AM CDT 12/13/2020 9:03 AM CDT 1,000 mg cefTRIAXone (ROCEPHIN) injection 1,000 Given mg 1,000 mg, Intravenous, Daily, Indications: UTI, First dose on Thu12/12/20 at 1806, If giving IV push, reconstitute each vial with 10 ml sterile water and give over 3-5 minutes . If sterile water is unavailable, may use Bacteriostatic Water or Normal Saline for reconstitution 1,000 mg Given 12/12/2020 7:11 PM CDT 12/20/2020 5:57 PM CDT 500 mg cephalexin (KEFLEX) capsule 500 mg Given 500 mg, Oral, Daily, Indications: UTI, First dose on Ellie 12/20/20 at 1800, Capsule may be opened 12/22/2020 10:12 PM CDT 10 mg cyclobenzaprine (FLEXERIL) tablet 10 mg Given 10 mg, Oral, 2 times daily PRN, muscle spasms, Indications: muscle spasm, Starting on Thu12/12/20 at 1947 10 mg Given 12/13/2020 9:35 PM CDT 10 mg Given 12/13/2020 9:03 AM CDT 12/17/2020 9:28 AM CDT 50 mL/hr 50 mL/hr dextrose 5 % and sodium chloride 0.45 % New Bag infusion 50 mL/hr, Intravenous, Continuous, Starting on Thu12/17/20 at 0915, For 4 8 hours, Discontinue after biopsy and pt is eating, return to normal saline at 5 0 mL/hr as ordered 12/14/2020 9:24 AM CDT 25 mL dextrose 50% (D50W) syringe 25-50 mL Given 25-50 mL, Intravenous, As needed, low blood sugar, for 24 hours., Starting on Thu12/12/20 at 1950, Give if patient NPO and IV access already available. If no IV access give Glucagon SQ or IM in arm and turn patient on side. For bloo d glucose (BG): Less than 50 mg/dL: Giv e D50W 50 mL. Check BG every 15 minutes and repeat until greater than 80 mg/dL. Less than 70 mg/dL: Give D50W 25 mL. Check BG every 15 minutes and repeat until greater than 80 mg/dL. Less than 70 mg/dL and patient unconscious: Give D50W 50 mL. Call physician for additional orders. Check BG every 15 minutes and repeat until greater than 8 0 mg/dL. Once blood glucose greater tisha n 80 mg/dL, check BG in one hour. Call physician if less than 70 mg/dL. 12/17/2020 5:42 PM CDT 10,000 Units Left Upp er Abdomen epoetin nnamdi-epbx (RETACRIT) injection Given 10,000 Units 10,000 Units, Subcutaneous, Once, Indications: anemia in acute kidney injury, anemia in kly-zjremjsa-yseukdlw t chronic kidney disease, On Thu12/17/20 at 1330, For 1 dose, REFRIGERATE, Does the patient have adequate iron stores or is patient receiving iron replacement? Yes, Does the patient refuse blood transfusions: No, Is the patient currently on a transplant wait list? No, Does the patient have an active bleed? No, Is this a new initiation or continuation of erythropoetin therapy? New Initiation 12/24/2020 5:18 PM CDT 10,000 Units Left Low er Abdomen epoetin nnamdi-epbx (RETACRIT) injection Given 10,000 Units 10,000 Units (rounded from 8,940 Units = 100 Units/kg 89.4 kg), Subcutaneous, Every Thu-Thu-Thu, Indications: anemia in acute kidney injury, First dose on Thu12/21/20 at 1400, REFRIGERATE, Does the patient have adequate iron stores o r is patient receiving iron replacement? Yes, Does the patient refuse blood transfusions: Yes, Is the patient currently on a transplant wait list? No , Does the patient have an active bleed? Yes, Is this a new initiation or continuation of erythropoetin therapy? New Initiation 10,000 Units Right Arm Given 12/21/2020 2:44 PM CDT 12/17/2020 11:30 AM CDT 25 mcg fentaNYL (SUBLIMAZE) injection Given Intravenous, Code/trauma/sedation medication, Starting on 12/17/20 at 1115 25 mcg Given 12/17/2020 11:25 AM CDT 50 mcg Given 12/17/2020 11:15 AM CDT 12/25/2020 11:44 AM CDT 50 mcg fentaNYL (SUBLIMAZE) injection Given Intravenous, Code/trauma/sedation medication, Starting on Thu12/25/20 at 1144 50 mcg Given 12/25/2020 11:41 AM CDT 12/25/2020 8:35 AM CDT 200 mg gabapentin (NEURONTIN) capsule 200 mg Given 200 mg, Oral, 3 times daily, First dose on Thu12/12/20 at 2100, Capsule may be opened 200 mg Given 12/24/2020 9:03 PM CDT 200 mg Given 12/24/2020 3:23 PM CDT glucagon (GLUCAGEN) injection 1 mg 1 mg, Intramuscular, As needed, low blood sugar, low blood sugar, Starting on Thu12/12/20 at 1950, Give if patien t NPO and no IV access. May give IM or SQ in arm and turn patient on side. Reconstitute powder for injection by adding 1 mL of artillery specialist-supplied sterile diluent or sterile water for injection to a vial containing 1 unit o f the drug, to provide solutions containing 1 mg of glucagon/mL. Shake vial gently to dissolve. glucagon (GLUCAGEN) injection 1 mg 1 mg, Subcutaneous, As needed, low bloo d sugar, low blood sugar, Starting on Thu12/12/20 at 1950, Give if patient NPO and no IV access. May give IM or SQ in arm and turn patient on side. Reconstitute powder for injection by adding 1 mL of artillery specialist-supplied sterile diluent or sterile water for injection to a vial containing 1 unit o f the drug, to provide solutions containing 1 mg of glucagon/mL. Shake vial gently to dissolve. glucose chewable tablet 16-32 g 16-32 g, Oral, As needed, low blood sugar, Starting on Thu12/12/20 at 1950 , Give food, drink, or glucose tablets to treat low blood glucose if patient able to eat. For blood glucose (BG): Less than 50 mg/dL: Give 30 g of carbohydrat e (32 g if using glucose tablets). Check BG every 15 minutes and repeat until greater than 80 mg/dL. Less than 70 mg/dL: Give 15 g of carbohydrate (16 g if using glucose tablets). Check BG every 15 minutes and repeat until greater than 80 mg/dL. Less than 70 mg/dL and patient unconscious: BG to be treated with D50W until greater than 80 mg/dL. Once BG greater than 80 mg/dL, give 30 g of carbohydrate (32 g if usin g glucose tablets) if patient awake and able to swallow. Once blood glucose greater than 80 mg/dL, check BG in one hour. Call physician if less than 70 mg/dL. 12/25/2020 12:00 PM CDT 3,200 Units Other heparin (porcine) 1,000 unit/mL Given injection Intravenous, Code/trauma/sedation medication, Starting on Thu12/25/20 at 1200 12/20/2020 5:51 AM CDT 100 mg hydrALAZINE (APRESOLINE) tablet 100 mg Given 100 mg, Oral, Every 8 hours, First dose on Thu12/12/20 at 2200, Hold if SBP less than 110 100 mg Given 12/19/2020 8:49 PM CDT 100 mg Given 12/19/2020 2:03 PM CDT 12/25/2020 1:30 PM CDT 100 mg hydrALAZINE (APRESOLINE) tablet 100 mg Given 100 mg, Oral, Every 8 hours, First dose (after last modification) on Thu12/20/20 at 1400, Hold if SBP less than 110 100 mg Given 12/24/2020 9:03 PM CDT 100 mg Given 12/24/2020 3:23 PM CDT 12/17/2020 5:45 PM CDT 1 tablet HYDROcodone-acetaminophen (NORCO) 10-325 Given mg per tablet 1 tablet 1 tablet, Oral, Every 6 hours PRN, pain , Starting on 12/17/20 at 1354, For 3 days 21 hours, Imaging, Do not exceed 4 GM/DAY of acetaminophen. If 65 or olde r do not exceed 3 GM/DAY. If chronic alcoholic do not exceed 2 GM/DAY. 12/17/2020 9:43 PM CDT 10 Units Right Up per Abdomen insulin detemir U-100 (LEVEMIR) Given injection 10 Units 10 Units, Subcutaneous, Nightly, Indications: type 1 diabetes mellitus, First dose on Thu12/12/20 at 2100 10 Units Right Lower Abdomen Given 12/16/2020 8:56 PM CDT 10 Units Left Lower Abdomen Given 12/15/2020 8:25 PM CDT 12/24/2020 9:03 PM CDT 8 Units Left Low er Abdomen insulin glargine (LANTUS) injection 8 Given Units 8 Units, Subcutaneous, Nightly, First dose on Thu12/18/20 at 2300 8 Units Left Lower Abdomen Given 12/23/2020 9:19 PM CDT 8 Units Right Upper Abdomen Given 12/22/2020 10:07 PM CDT 12/25/2020 1:30 PM CDT 2 Units Left Arm insulin lispro (HumaLOG) injection 2 Given Units 2 Units, Subcutaneous, 3 times daily before meals, Indications: type 1 diabetes mellitus, First dose on Thu12/21/20 at 1945, Hold if blood sugar i s less than 80 or if patient will not eat meal 2 Units Right Lower Abdomen Given 12/24/2020 6:35 PM CDT 2 Units Left Lower Abdomen Given 12/23/2020 4:57 PM CDT 12/24/2020 9:03 PM CDT 3 Units Left Low er Abdomen insulin lispro (HumaLOG) injection 2-7 Given Units 2-7 Units, Subcutaneous, 4 times daily before meals and nightly, First dose on Thu12/12/20 at 2100, LEVEL 3 - Give in addition to scheduled mealtime insulin per table DO NOT GIVE for any 2 hours post meal fingerstick blood glucose checks. If pt NPO or on continuous enteral/parenteral nutrition - give wit h scheduled fingerstick blood glucose check - dose per table Glucose (mg/dL) Dose 0-120 0 units 121-150 0 units 151-200 2 units 201-250 3 units 251-300 4 units 301-350 5 units 351-400 6 units >400 7 units Bedtime Admin Instructions: If glucose level is less than 200, do not give any correction dose If glucose level is 200 or greater give correction dose according to sliding scale (see below) and check BG @ 0000 and 0300 LEVEL 3 - Bedtime Only Glucose (mg/dL) Dose 0-199 0 units 200-250 3 units 251-300 4 units 301-350 5 units 351-400 6 units >400 7 units 2 Units Right Lower Abdomen Given 12/24/2020 6:35 PM CDT 2 Units Left Lower Abdomen Given 12/23/2020 4:56 PM CDT 12/17/2020 11:56 AM CDT 0.001 mL iohexoL (OMNIPAQUE) 300 mg iodine/mL Given injection 0.1 mL 0.1 mL, Intracavitary, Once in imaging, contrast, Starting on Thu12/17/20 at 1155, For 1 dose 12/25/2020 8:34 AM CDT 1 capsule lactobacillus (CULTURELLE) 10 billion Given cell capsule 1 capsule, Oral, Daily, First dose on Thu12/14/20 at 1045, Capsule may be opened 1 capsule Given 12/24/2020 8:26 AM CDT 1 capsule Given 12/23/2020 9:25 AM CDT 12/13/2020 2:11 PM CDT 2 mL lidocaine (pf) (XYLOCAINE-MPF) 10 mg/mL Given (1 %) injection Code/trauma/sedation medication, Starting on Thu12/13/20 at 1411 12/17/2020 11:25 AM CDT 5 mL lidocaine (pf) (XYLOCAINE-MPF) 10 mg/mL Given (1 %) injection Code/trauma/sedation medication, Starting on Thu12/17/20 at 1121 10 mL Given 12/17/2020 11:21 AM CDT 12/25/2020 11:44 AM CDT 10 mL Neck lidocaine (pf) (XYLOCAINE-MPF) 10 mg/mL Given (1 %) injection Code/trauma/sedation medication, Starting on Thu12/25/20 at 1144 12/25/2020 8:34 AM CDT 100 mg losartan (COZAAR) tablet 100 mg Given 100 mg, Oral, Daily, First dose on Thu12/20/20 at 1030 100 mg Given 12/24/2020 8:27 AM CDT 100 mg Given 12/23/2020 9:25 AM CDT magnesium sulfate IVPB 2 gram (premix) 2 g, Intravenous, at 25 mL/hr, As indicated, for Mag level < 1.7, Startin g on Thu12/13/20 at 1820 12/17/2020 11:16 AM CDT 1 mg midazolam (PF) (VERSED) injection Given Intravenous, Code/trauma/sedation medication, Starting on Thu12/17/20 at 1116 12/25/2020 11:43 AM CDT 1 mg midazolam (PF) (VERSED) injection Given Intravenous, Code/trauma/sedation medication, Starting on Thu12/25/20 at 1143 1 mg Given 12/25/2020 11:40 AM CDT 12/24/2020 5:11 PM CDT 1 tablet multiple vitamins B complex with C Given (NEPHRO-ELIJAH) tablet 1 tablet 1 tablet, Oral, Every evening, First dose on Thu12/14/20 at 1800, After dialysis on dialysis days 1 tablet Given 12/23/2020 5:00 PM CDT 1 tablet Given 12/22/2020 5:19 PM CDT 12/18/2020 9:18 PM CDT 4 mg ondansetron (ZOFRAN) injection 4 mg Given 4 mg, Intravenous, Every 6 hours PRN, nausea, vomiting, Starting on Thu12/12/20 at 1911 4 mg Given 12/17/2020 8:31 PM CDT 12/22/2020 10:17 AM CDT 20 mEq potassium bicarb-citric acid (EFFER-K) Given effervescent tablet 20 mEq 20 mEq, Oral, Once, On 12/22/20 at 1000, For 1 dose, Completely dissolve tablet in 2 to 4 ounces (60-120 mL) of cold juice or water before administering. For fluid restricted patients, a smaller volume may be used to dilute (e.g. 15-30 mL). 12/22/2020 6:27 AM CDT 30 mEq potassium chloride (KLOR-CON) CR tablet Given 30 mEq 30 mEq, Oral, Once, On 12/22/20 at 0645, For 1 dose, DO NOT CRUSH OR CHEW. 12/17/2020 8:51 PM CDT 40 mEq potassium chloride (KLOR-CON) CR tablet Given 40 mEq 40 mEq, Oral, 2 times daily, First dose on Thu12/17/20 at 1300, For 2 doses, D O NOT CRUSH OR CHEW. 40 mEq Given 12/17/2020 1:44 PM CDT 12/24/2020 9:03 PM CDT 50 mg QUEtiapine (SEROquel) tablet 50 mg Given 50 mg, Oral, Nightly, First dose on Thu12/12/20 at 2100 50 mg Given 12/23/2020 9:19 PM CDT 50 mg Given 12/22/2020 10:08 PM CDT 12/25/2020 8:34 AM CDT 100 mg sertraline (ZOLOFT) tablet 100 mg Given 100 mg, Oral, Daily, First dose on Thu12/13/20 at 0900 100 mg Given 12/24/2020 8:27 AM CDT 100 mg Given 12/23/2020 9:25 AM CDT 12/16/2020 7:13 AM CDT 100 mL/hr 100 mL/hr sodium bicarbonate 150 mEq in sterile New Bag water 1,000 mL infusion 100 mL/hr, Intravenous, Continuous, Starting on Thu12/13/20 at 1845, For 1 0 days 100 mL/hr 100 mL/hr New Bag 12/15/2020 8:27 PM CDT 100 mL/hr 100 mL/hr New Bag 12/15/2020 9:03 AM CDT 12/14/2020 9:36 AM CDT 1,300 mg sodium bicarbonate tablet 1,300 mg Given 1,300 mg, Oral, 2 times daily, First dose on Thu12/13/20 at 2100 1,300 mg Given 12/13/2020 9:19 PM CDT 12/18/2020 9:45 AM CDT sodium chloride 0.9 % (NS) infusion New Bag Starting on Thu12/18/20 at 0941, For 1 dose, Debo Ingram: cabinet overrid e 12/19/2020 9:15 AM CDT sodium chloride 0.9 % (NS) infusion New Bag Starting on Thu12/19/20 at 0905, For 1 dose, Johny Saini: cabinet override 12/21/2020 5:31 AM CDT 25 mL 100 mL/hr sodium chloride 0.9% (NS) flush bag Continue 25 mL, Intravenous, at 100 mL/hr, Same Bag Continuous PRN, to flush line, Starting on Thu12/20/20 at 1229, Only use a New Bag action if you are hanging a new bag This bag expires 24 hours after hanging. To be implemented as an intravenous flush following intermitten t infusions where there is no primary infusion. Patients with fluid restrictions may be excluded. 25 mL 100 mL/hr New Bag 12/20/2020 10:02 PM CDT 25 mL 100 mL/hr New Bag 12/20/2020 12:41 PM CDT 12/12/2020 7:14 PM CDT 1,000 mL 2000 mL/hr sodium chloride 0.9% (NS) IV Bolus New Bag 1,000 mL, Intravenous, Administer over 30 Minutes, Once, On Thu12/12/20 at 1814, For 1 dose 12/16/2020 3:21 PM CDT 50 mL/hr 50 mL/hr sodium chloride 0.9% infusion New Bag 50 mL/hr, Intravenous, Continuous, Starting on Thu12/16/20 at 1515, For 4 8 hours 12/17/2020 11:12 AM CDT 100 mL/hr 100 mL/hr sodium chloride 0.9% infusion New Bag Intravenous, Code/trauma/sedation continuous med, Starting on Thu 1 at 1112 12/25/2020 11:34 AM CDT 100 mL/hr 100 mL/hr sodium chloride 0.9% infusion New Bag Intravenous, Code/trauma/sedation continuous med, Starting on Tu 1 at 1134 12/17/2020 9:43 PM CDT 100 mg tramadoL (ULTRAM) tablet 100 mg Given 100 mg, Oral, Every 8 hours PRN, pain, Indications: pain, Starting on Ellie 12/13/20 at 1428 100 mg Given 12/17/2020 1:43 PM CDT 100 mg Given 12/16/2020 4:31 PM CDT 12/24/2020 9:03 PM CDT 100 mg trazodone (DESYREL) tablet 100 mg Given 100 mg, Oral, Nightly, First dose on 12/12/20 at 2103 100 mg Given 12/23/2020 9:19 PM CDT 100 mg Given 12/22/2020 10:08 PM CDT 12/21/2020 5:32 AM CDT 500 mg 55 mL/hr valproate (DEPACON) 500 mg in sodium New Bag chloride 0.9 % (NS) 50 mL IVPB 500 mg, Intravenous, at 55 mL/hr, Every 8 hours scheduled, First dose on Ellie 12/20/20 at 1200, Do not handle if or planning to become . Double Glove. Avoid inhalation and contact with skin, eyes, and clothing 500 mg 55 mL/hr New Bag 12/20/2020 10:03 PM CDT 500 mg 55 mL/hr New Bag 12/20/2020 12:42 PM CDT 12/19/2020 3:54 PM CDT 500 mg valproate (DEPACON) injection 500 mg Given 500 mg, Intravenous, Once, On Thu12/19/20 at 1445, For 1 dose, If giving IV push, maximum rate undiluted is 1 gram over 5 minutes Do not handle if or planning to become . Double Glove. Avoid inhalation and contact with skin, eyes, and clothing documented in this encounter Active and Recently Administered Medications Times are shown in CDT. 12/24/2020 12/25/2020 Medication Order 12/23/2020 0827 (Given - Provider: Janiya Olmstead RN) 0834 (Given - Provider: Edwige Calero) amLODIPine (NORVASC) tablet 10 mg 0925 (Given - 10 mg, Oral, Daily, Indications: Provider: Hayley Fraire hypertension, First dose (after last MONTSE Hunter) modification) on Thu12/16/20 at 0900, Hold if systolic blood pressure less than 110 0827 (Given - Provider: Janiya Olmstead RN) 0833 (Given - Provider: Edwige Calero) amoxicillin-clavulanate (AUGMENTIN) 0924 (Given - 500-125 mg per tablet 1 tablet Provider: Hayley Fraire 1 tablet, Oral, Daily, Indications: MONTSE Hunter) OTITIS, First dose on Thu12/21/20 at 1130, Administer dose after dialysis on dialysis days 2102 (Given - Provider: Jess Toscano RN) atorvastatin (LIPITOR) tablet 20 mg 2118 (Given - 20 mg, Oral, Nightly, First dose on Thu Provider: Heydi dawson 12/12/20 at 2100 MONTSE Toscano) 0730 (Hold this dose - Provider: Janiya sumner RN - Reason: NPO)1200 (Hold this dose - Provider: Janiya Olmstead RN - Reason: NPO)1524 (Given - Provider: Jnaiya Olmstead RN - Comment: Pt had dialysis, NPO for line pull (now tomorrow), now eating)1711 (Given - Provider: Janiya Olmstead RN) 0833 (Not Given - Provider: Edwige Calero - Reason: NPO - Comment: needs to be taken with food)1330 (Given - Provider: Inna De Jesus RN) calcium acetate(phosphat bind) (PHOSLO) 0924 (Given - capsule 1,334 mg Provider: Hayley Fraire 1,334 mg, Oral, 3 times daily with MONTSE Hunter)1249 meals, First dose on Thu12/13/20 at (Given - Provid er: 1845, Swallow capsule whole Hayley Hunter RN)1655 (Given - Provider: Hayley Hunter RN) 0827 (Given - Provider: Janiya Olmstead RN)1 711 (Given - Provider: Janiya Olmstead RN) 0835 (Given - Provider: Edwige Calero) caRVEDILol (COREG) tablet 6.25 mg 0925 (Given - 6.25 mg, Oral, 2 times daily with meals, Provider: Donita Fraire First dose on Thu12/12/20 at 1949, Hold Tess Hunter)1656 if HR < 60 or SBP < 100. (Given - Provider: Hayley Hunter RN) 1718 (Given - Provider: Janiya Olmstead RN - Comment: Not given during dialysis) epoetin nnamdi-epbx (RETACRIT) injection 10,000 Units 10,000 Units (rounded from 8,940 Units = 100 Units/kg 89.4 kg), Subcutaneous, Every Thu-Thu-Thu, Indications: anemia in acute kidney injury, First dose on Thu12/21/20 at 1400, REFRIGERATE, Does the patient have adequate iron stores o r is patient receiving iron replacement? Yes, Does the patient refuse blood transfusions: Yes, Is the patient currently on a transplant wait list? No , Does the patient have an active bleed? Yes, Is this a new initiation or continuation of erythropoetin therapy? New Initiation 826 (Given - Provider: Janiya Olmstead RN)1 523 (Given - Provider: Janiya Olmstead RN)2103 (Given - Provider: Jess Toscano, MONTSE) 0835 (Given - Provider: Edwige Calero) gabapentin (NEURONTIN) capsule 200 mg 0925 (Given - 200 mg, Oral, 3 times daily, First dose Provider: Lori Fraire on Thu12/12/20 at 2100, Capsule may be MONTSE Hunter )1502 opened (Given - Provider: Hayley Hunter RN)2119 (Given - Provider: Jess Toscano RN) heparin (porcine) 1,000 unit/mL injection 1,000-5,000 Units 1,000-5,000 Units, Intra-Catheter, Once in dialysis, On Thu12/13/20 at 1611, For 1 dose, Fill volume as indicated on catheter ports, Repack line after use with heparin 1,000 units/mL (RED LUMEN) : Other (specify in comments), Repack [place] e after use with hepain 1,000 units/mL (BLUE LUMEN): Other (specify in comments), Aspirate 3 mL from each lume n and discharge immediately prior to use? Yes, Line ready for use? Yes, Dressing change after each use? Yes, No systemic heparin with first treatment use? Yes 0600 (Hold this dose - Provider: Jess pradhan RN - Reason: NPO)1523 (Given - Provider: Janiya Olmstead RN)2103 (Given - Provider: Jess Toscano RN) 0600 (Hold this dose - Provider: Jess pradhan RN - Reason: NPO)1330 (Given - Provider: Inna De Jesus RN) hydrALAZINE (APRESOLINE) tablet 100 mg 0513 (Given - 100 mg, Oral, Every 8 hours, First dose Provider: Nel gage (after last modification) on [facility] MONTSE Sanchez)1501 12/20/20 at 1400, Hold if SBP less than (Given - Pro vider: 110 Hayley Hunter RN)211 (Given - Provider: Jess Toscano RN) 210 (Given - Provider: Jess Toscano RN) insulin glargine (LANTUS) injection 8 2118 (Given - Units Provider: Jess 8 Units, Subcutaneous, Nightly, First Dorcas RN) dose on Thu12/18/20 at 2300 0730 (Hold this dose - Provider: Janiya sumner RN - Reason: NPO - Comment: Per pt request)1130 (Hold this dose - Provider: Janiya Olmstead RN - Reason: NPO - Comment: Pt request)1835 (Given - Provider: Janiya Olmstead RN - Comment: w/ meal) 0730 (Not Given - Provider: Inna alvarez RN - Reason: NPO)1330 (Given - Provider: Inna De Jesus RN) insulin lispro (HumaLOG) injection 2 0922 (Given - Units Provider: Hayley Fraire 2 Units, Subcutaneous, 3 times daily MONTSE Hunter)12 50 before meals, Indications: type 1 (Given - Provider: diabetes mellitus, First dose on Fri Hayley Hunter , 12/21/20 at 1945, Hold if blood sugar is RN)1657 (Gi radha - less than 80 or if patient will not eat Provider: Lori Fraire meal MONTSE Hunter) 0730 (Hold this dose - Provider: Janiya sumner RN - Reason: NPO - Comment: Per pt request)1130 (Hold this dose - Provider: Janiya Olmstead RN - Reason: Order parameters not met)1835 (Given - Provider: Janiya Olmstead RN - Comment: w/ meal) 2103 (Given - Provider: Jess Toscano RN) 0730 (Not Given - Provider: Inna alvarez RN - Reason: Order parameters not met)1130 (Not Given - Provider: Edwige Calero - Reason: Order parameters not met) insulin lispro (HumaLOG) injection 2-7 0730 (Not Giv en - Units Provider: Hayley Fraire 2-7 Units, Subcutaneous, 4 times daily MONTSE Hunter - before meals and nightly, First dose on Reason: Orde r 12/12/20 at 2100, LEVEL 3 - Give in parameters n ot addition to scheduled mealtime insulin met)1249 (Giv en - per table DO NOT GIVE for any 2 hours Provider: Lizbeth Fraire post meal fingerstick blood glucose MONTSE Hunter)165 6 checks. If pt NPO or on continuous (Given - Provider : enteral/parenteral nutrition - give with Hayley Kitchen ster, scheduled fingerstick blood glucose RN)2100 (Not Giv en - check - dose per table Glucose (mg/dL) Provider: Heydi ma Dose 0-120 MONTSE Toscano - Reason: 0 units 121-150 Order parameters not 0 units 151-200 met) 2 units 201-250 3 units 251-300 4 units 301-350 5 units 351-400 6 units >400 7 units Bedtime Admin Instructions: If glucose level is less than 200, do not give any correction dose If glucose level is 200 or greater give correction dose according to sliding scale (see below) and check BG @ 0000 and 0300 LEVEL 3 - Bedtime Only Glucose (mg/dL) Dose 0-199 0 units 200-250 3 units 251-300 4 units 301-350 5 units 351-400 6 units >400 7 units 0826 (Given - Provider: Janiya Olmstead RN) 0834 (Given - Provider: Edwige Calero) lactobacillus (CULTURELLE) 10 billion 0925 (Given - cell capsule Provider: Hayley Castellanos capsule, Oral, Daily, First dose on MONTSE Hunter) Thu12/14/20 at 1045, Capsule may be opened 0827 (Given - Provider: Janiya Olmstead RN) 0834 (Given - Provider: Edwige Calero) losartan (COZAAR) tablet 100 mg 0925 (Given - 100 mg, Oral, Daily, First dose on Thu Provider: Lizbeth Fraire 12/20/20 at 1030 Dale, RN) 1711 (Given - Provider: Janiya Olmstead RN) multiple vitamins B complex with C 1700 (Given - (NEPHRO-ELIJAH) tablet 1 tablet Provider: Hayley Fraire 1 tablet, Oral, Every evening, First Dale, MONTSE) dose on Thu12/14/20 at 1800, After dialysis on dialysis days 2102 (Given - Provider: Jess Toscano RN) QUEtiapine (SEROquel) tablet 50 mg 2118 (Given - 50 mg, Oral, Nightly, First dose on Thu Provider: Heydi dawson 12/12/20 at 2100 MONTSE Toscano) 0827 (Given - Provider: Janiya Olmstead RN) 0834 (Given - Provider: Edwige Calero) sertraline (ZOLOFT) tablet 100 mg 0925 (Given - 100 mg, Oral, Daily, First dose on Thu Provider: iLzbeth Fraire 12/13/20 at 0900 Dale, MONTSE) 2102 (Given - Provider: Jess Toscano RN) trazodone (DESYREL) tablet 100 mg 2118 (Given - 100 mg, Oral, Nightly, First dose on Thu Provider: Hank shah 12/12/20 at 2103 MONTSE Toscano) 12/24/2020 12/25/2020 Medication Order 12/23/2020 acetaminophen (TYLENOL) tablet 650 mg 650 mg, Oral, Every 6 hours PRN, mild pain (pain score 1-3), fever, Starting on Ellie 12/13/20 at 0002, Do not exceed 4 GM/DAY of acetaminophen. If 65 or olde r do not exceed 3 GM/DAY. If chronic alcoholic do not exceed 2 GM/DAY. ALPRAZolam (XANAX) tablet 0.5 mg 0.5 mg, Oral, Nightly PRN, anxiety, Starting on Thu12/12/20 at 1947 1711 (Given - Provider: Janiya Olmstead RN)2 227 (Given - Provider: Jess Toscano RN) qbaklladgi-dkxowwjlxqguw-njzdpfho (FIORICET, ESGIC) per tablet 1 tablet 1 tablet, Oral, Every 4 hours PRN, headaches, Starting on Ellie 12/13/20 at 2101, Do not exceed 4 GM/DAY of acetaminophen. If 65 or older do not exceed 3 GM/DAY. If chronic alcoholic d o not exceed 2 GM/DAY. cyclobenzaprine (FLEXERIL) tablet 10 mg 10 mg, Oral, 2 times daily PRN, muscle spasms, Indications: muscle spasm, Starting on Thu12/12/20 at 1947 dextrose 50% (D50W) syringe 25-50 mL 25-50 mL, Intravenous, As needed, low blood sugar, for 24 hours., Starting on Thu12/12/20 at 1950, Give if patient NPO and IV access already available. If no IV access give Glucagon SQ or IM in arm and turn patient on side. For bloo d glucose (BG): Less than 50 mg/dL: Giv e D50W 50 mL. Check BG every 15 minutes and repeat until greater than 80 mg/dL. Less than 70 mg/dL: Give D50W 25 mL. Check BG every 15 minutes and repeat until greater than 80 mg/dL. Less than 70 mg/dL and patient unconscious: Give D50W 50 mL. Call physician for additional orders. Check BG every 15 minutes and repeat until greater than 8 0 mg/dL. Once blood glucose greater tisha n 80 mg/dL, check BG in one hour. Call physician if less than 70 mg/dL. 1141 (Given - Provider: Cynthia Ruiz RN)1144 (Given - Provider: Cynthia Ruiz RN) fentaNYL (SUBLIMAZE) injection (COMPLETED) Intravenous, Code/trauma/sedation medication, Starting on Thu12/25/20 at 1144 glucagon (GLUCAGEN) injection 1 mg(Linked Group 1) 1 mg, Intramuscular, As needed, low blood sugar, low blood sugar, Starting on Thu12/12/20 at 1950, Give if patien t NPO and no IV access. May give IM or SQ in arm and turn patient on side. Reconstitute powder for injection by adding 1 mL of artillery specialist-supplied sterile diluent or sterile water for injection to a vial containing 1 unit o f the drug, to provide solutions containing 1 mg of glucagon/mL. Shake vial gently to dissolve. glucagon (GLUCAGEN) injection 1 mg(Linked Group 1) 1 mg, Subcutaneous, As needed, low bloo d sugar, low blood sugar, Starting on Thu12/12/20 at 1950, Give if patient NPO and no IV access. May give IM or SQ in arm and turn patient on side. Reconstitute powder for injection by adding 1 mL of artillery specialist-supplied sterile diluent or sterile water for injection to a vial containing 1 unit o f the drug, to provide solutions containing 1 mg of glucagon/mL. Shake vial gently to dissolve. glucose chewable tablet 16-32 g 16-32 g, Oral, As needed, low blood sugar, Starting on Thu12/12/20 at 1950 , Give food, drink, or glucose tablets to treat low blood glucose if patient able to eat. For blood glucose (BG): Less than 50 mg/dL: Give 30 g of carbohydrat e (32 g if using glucose tablets). Check BG every 15 minutes and repeat until greater than 80 mg/dL. Less than 70 mg/dL: Give 15 g of carbohydrate (16 g if using glucose tablets). Check BG every 15 minutes and repeat until greater than 80 mg/dL. Less than 70 mg/dL and patient unconscious: BG to be treated with D50W until greater than 80 mg/dL. Once BG greater than 80 mg/dL, give 30 g of carbohydrate (32 g if usin g glucose tablets) if patient awake and able to swallow. Once blood glucose greater than 80 mg/dL, check BG in one hour. Call physician if less than 70 mg/dL. 1200 (Given - Provider: Carlo Atkinson MD - Comment: Catheter packing, 2 lumens; 1.6mL each or 1600 units each lumen = 3200 units) heparin (porcine) 1,000 unit/mL injection (COMPLETED) Intravenous, Code/trauma/sedation medication, Starting on Thu12/25/20 at 1200 1144 (Given - Provider: Carlo Atkinson MD - Comment: Right I.J.Tunneled Dialysis Cathter Access and Placement) lidocaine (pf) (XYLOCAINE-MPF) 10 mg/mL (1 %) injection (COMPLETED) Code/trauma/sedation medication, Starting on Thu12/25/20 at 1144 magnesium sulfate IVPB 2 gram (premix) 2 g, Intravenous, at 25 mL/hr, As indicated, for Mag level < 1.7, Startin g on Thu12/13/20 at 1820 1140 (Given - Provider: Cynthia Ruiz RN)1143 (Given - Provider: Cynthia Ruiz RN) midazolam (PF) (VERSED) injection (COMPLETED) Intravenous, Code/trauma/sedation medication, Starting on Thu12/25/20 at 1143 ondansetron (ZOFRAN) injection 4 mg 4 mg, Intravenous, Every 6 hours PRN, nausea, vomiting, Starting on Thu12/12/20 at 1911 sodium chloride 0.9% (NS) flush bag 25 mL, Intravenous, at 100 mL/hr, Continuous PRN, to flush line, Starting on Thu12/20/20 at 1229, Only use a New Bag action if you are hanging a new bag This bag expires 24 hours after hanging. To be implemented as an intravenous flush following intermitten t infusions where there is no primary infusion. Patients with fluid restrictions may be excluded. 1134 (New Bag - Provider: Cynthia manzano RN)1208 (Stopped - Provider: Cynthia Ruiz RN) sodium chloride 0.9% infusion (COMPLETED) Intravenous, Code/trauma/sedation continuous med, Starting on Thu 1 at 1134 tramadoL (ULTRAM) tablet 100 mg 100 mg, Oral, Every 8 hours PRN, pain, Indications: pain, Starting on Thu12/13/20 at 1428 Order Group 1: glucagon (GLUCAGEN) injection 1 mgJump to med 1 mg, Intramuscular, As needed, low blo od sugar, low blood sugar, Starting on Thu12/12/20 at 1950
Give if patient NPO and no IV a ccess. May give IM or SQ in arm and turn patient on side. Reconstitute powder for inje ction by adding 1 mL of artillery specialist- supplied sterile diluent or sterile water for injection to a via l containing 1 unit of the drug, to provide solutions containing 1 mg of glucagon/mL. Shake v ial gently to dissolve.
Or glucagon (GLUCAGEN) injection 1 mgJump to med 1 mg, Subcutaneous, As needed, low bloo d sugar, low blood sugar, Starting on Thu12/12/20 at 1950
Give if patient NPO and no IV a ccess. May give IM or SQ in arm and turn patient on side. Reconstitute powder for inje ction by adding 1 mL of artillery specialist- supplied sterile diluent or sterile water for injection to a via l containing 1 unit of the drug, to provide solutions containing 1 mg of glucagon/mL. Shake v ial gently to dissolve.
documented in this encounter Additional Health Concerns Onset Date Resolved Time Infection Last Indicated 12/13/2020 12/13/2020 7:09 PM CDT C.Difficile - Rule Out 12/13/2020 documented as of this encounter Care Teams Start Date End Date Communications Project Manager Relationship Specialty 11/25/20 Carmelita Avila APRN PCP - General Nurse [address] [place] [address] Practitioner [place], [place] [phone] documented as of this encounter
[2021-02-22 10:08] LABS: WHITE BLOOD COUNT 2.7 10^3/uL (4.3-11.0)
[2021-02-22 10:09] LABS: BASOPHILS % (AUTO) 0 % (0-10); EOSINOPHILS % (AUTO) 1 % (0-10); HEMATOCRIT 20 % (40-54); HEMOGLOBIN 6.8 g/dL (13.3-17.7); LYMPHOCYTES % (AUTO) 18 % (12-44); MEAN CORPUSCULAR HEMOGLOBIN 30 pg (25-34); MEAN CORPUSCULAR HGB CONC 35 g/dL (32-36); MEAN CORPUSCULAR VOLUME 88 fL (80-99); MEAN PLATELET VOLUME 9.7 fL (9.0-12.2); MONOCYTES % (AUTO) 18 % (0-12); NEUTROPHILS % (AUTO) 62 % (42-75); PLATELET COUNT 154 10^3/uL (130-400)
[2021-02-22 10:10] LABS: LYMPHOCYTES # (AUTO) 0.5 X 10^3 (1.0-4.0); MONOCYTES # (AUTO) 0.5 X 10^3 (0.0-1.0); NEUTROPHILS # (AUTO) 1.7 X 10^3 (1.8-7.8)
--- NOTE | 2021-02-22 10:18 | Diagnostic Imaging Report ---
INDICATION: Fever. COMPARED: 10/25 FINDINGS: Right IJ sheath at the cavoatrial junction. There is no pneumothorax. Heart size within normal limits. The pulmonary venous structures are mildly prominent but no marisol edema. No focal pneumonia. No evidence for pleural fluid. IMPRESSION: Central line in good position, no pneumothorax. Some mild vascular congestion. Clear lungs with no pleural pathology. Dictated by: Dictated on workstation # [id number]
[2021-02-22 10:20] LABS: ALBUMIN 3.4 GM/DL (3.2-4.5); BILIRUBIN,TOTAL 0.3 MG/DL (0.1-1.0); CALCIUM 8.4 MG/DL (8.5-10.1); TOTAL PROTEIN 6.6 GM/DL (6.4-8.2)
[2021-02-22] MEDS ORDERED: NS IV 1000 ML 500 ML IV SCH (10:45)
[2021-02-22] MEDS ORDERED: CEFEPIME INJECTION 2,000 MG in NS (IVPB) 50 ML IV ONE (10:45)
[2021-02-22 10:52] LABS: BAND NEUTROPHILS 1 %; BASOPHILS % (MANUAL) 1 %; EOSINOPHILS % (MANUAL) 1 %; LYMPHOCYTES % (MANUAL) 18 %; MONOCYTES % (MANUAL) 13 %; NEUTROPHILS % (MANUAL) 65 %
[2021-02-22 11:35] LABS: CLARITY,URINE CLEAR; COLOR,URINE YELLOW; PH,URINE 8.5 (5-9)
[2021-02-22 11:36] LABS: BACTERIA,URINE NEGATIVE /HPF; BILIRUBIN,URINE NEGATIVE (NEGATIVE); GLUCOSE, URINE (UA) 2+ (NEGATIVE); KETONES,URINE NEGATIVE (NEGATIVE); LEUKOCYTE ESTERASE ,URINE NEGATIVE (NEGATIVE); NITRITE,URINE NEGATIVE (NEGATIVE); PROTEIN,URINE 3+ (NEGATIVE); SQUAMOUS EPITHELIAL CELL,UR 0-2 /HPF; WBC,URINE 0-2 /HPF
--- NOTE | 2021-02-22 15:48 | ED General ---
General Chief Complaint: Fever-Adult/Adol Stated Complaint: FEVER Nursing Triage Note: PT REPORTSS HE HAD A 102.7 TEMP LAST NIGHT AND TOOK SOME TYLENOL AND WENT TO BED. THIS AM HE WENT TO DIALYSIS AT 0800 AND HIS TEMP WAS 99.3. HE TOOK TYLENOL AGAIN THIS AM AT 0830. Source of Information: Patient Exam Limitations: No Limitations History of Present Illness Date Seen by Provider: Feb 22, 2021 Time Seen by Provider: 09:00 Initial Comments Patient is a 45-year-old male dialysis patient who presents with intermittent fever body aches chills starting yesterday. Patient has had fever of 102.7 last night prior to bed. He took Tylenol and went to dialysis morning when he spiked a fever. Patient was able to complete dialysis. He denies headache neck stiffness, rash, chest pain, shortness of breath, abdominal pain, vomiting diarrhea or urinary tract symptoms. Patient still makes urine. Patient has a dialysis line in his chest wall. No other acute symptoms or complaints. He has not received the Covid vaccination. Timing/Duration: 24 Hours Severity: Mild Modifying Factors: improves with Other Associated Systoms: Other Allergies and Home Medications Allergies Coded Allergies: NKANo Known Allergies (Verified Allergy, Unknown, 05/19/05) clindamycin (Verified Allergy, Unknown, 05/12/20) Patient Home Medication List Home Medication List Reviewed: Yes Amlodipine Besylate (Amlodipine Besylate) 5 Mg Tablet, 5 MG PO DAILY Prescribed by: EPRFECTO JOEL on 05/16/20 1146 Aspirin (Aspirin) 81 Mg Tab.chew, 81 MG PO DAILY, (Reported) Entered as Reported by: CLARK BOYD on 05/14/20 1433 Cephalexin (Cephalexin) 500 Mg Tablet, 1,000 MG PO BID Prescribed by: ROSALINO DUQUE on 07/15/20 1419 Cholecalciferol (Vitamin D3) (Vitamin D3) 125 Mcg Tablet, 250 MCG PO DAILY, (Reported) Entered as Reported by: CLARK BOYD on 05/14/20 1433 Clonidine HCl (Clonidine HCl) 0.1 Mg Tablet, 0.1 MG PO QID, (Reported) Entered as Reported by: CLARK BOYD on 05/14/20 1433 Cyanocobalamin (Vitamin B-12) (B-12) 500 Mcg Tablet, 1,000 MCG PO BID, (Reported) Entered as Reported by: CLARK BOYD on 05/14/20 143 Cyclobenzaprine HCl (Cyclobenzaprine HCl) 10 Mg Tablet, 10 MG PO DAILY PRN for MUSCLE SPASMS, (Reported) Entered as Reported by: CLARK BOYD on 05/14/20 143 Furosemide (Furosemide) 20 Mg Tablet, 20 MG PO BID, (Reported) Entered as Reported by: CLARK BOYD on 05/14/20 143 Gabapentin (Gabapentin) 800 Mg Tablet, 800 MG PO TID, (Reported) Entered as Reported by: CLARK BOYD on 05/14/20 143 Insulin Determir (Levemir) 1,000 Units/10 Ml Soln, 10 UNITS SQ HS Prescribed by: PERFECTO JOEL on 05/16/20 114 Insulin Lispro (Insulin Lispro) 100 Unit/1 Ml Vial, SQ QIDACHS, (Reported) Entered as Reported by: CLARK BOYD on 05/14/20 143 Lisinopril (Lisinopril) 40 Mg Tablet, 40 MG PO DAILY, (Reported) Entered as Reported by: CLARK BOYD on 05/14/20 143 Methylphenidate HCl (Methylphenidate HCl) 5 Mg Tablet, 5 MG PO BID, (Reported) Entered as Reported by: CLARK BOYD on 05/14/201432 Methylphenidate HCl (Methylphenidate HCl) 10 Mg Tablet, 10 MG PO BID, (Reported) Entered as Reported by: CLARK BOYD on 05/14/20 143 Metoprolol Succinate (Metoprolol Succinate) 100 Mg Tab.er.24h, 100 MG PO DAILY Prescribed by: PERFECTO JOEL on 05/16/20 1146 [place]ard 3 Polyunsat Fatty Acids (Fish Oil 1,000 mg Capsule) 1,000 Mg Cap, 1,000 MG PO BID, (Reported) Entered as Reported by: CLARK BOYD on 05/14/20 143 Potassium Chloride (Potassium Chloride) 20 Meq Tablet.er, 20 MEQ PO BID, (Reported) Entered as Reported by: CLARK BOYD on 05/14/20 143 Quetiapine Fumarate (Quetiapine Fumarate) 25 Mg Tablet, 50 MG PO HS, (Reported) Entered as Reported by: CLARK BOYD on 05/14/20 1433 Sertraline HCl (Sertraline HCl) 100 Mg Tablet, 100 MG PO DAILY, (Reported) Entered as Reported by: CLARK BOYD on 05/14/20 1433 Simvastatin (Simvastatin) 40 Mg Tablet, 40 MG PO HS, (Reported) Entered as Reported by: CLARK BOYD on 05/14/20 1433 Trazodone HCl (Trazodone HCl) 150 Mg Tablet, 150 MG PO HS, (Reported) Entered as Reported by: CLARK BOYD on 05/14/20 1433 Review of Systems Review of Systems Constitutional: see HPI EENTM: see HPI Respiratory: see HPI Gastrointestinal: see HPI Genitourinary: see HPI Musculoskeletal: see HPI Skin: see HPI Psychiatric/Neurological: See HPI Hematologic/Lymphatic: See HPI Immunological/Allergic: see HPI All Other Systems Reviewed Negative Unless Noted: Yes Past Kyjwxya-Cdduyq-Svjike Hx Patient Social History Tobacco Use?: Yes Use of E-Cig and/or Vaping dev: No Substance use?: No Alcohol Use?: No Pt feels they are or have been: No Immunizations Up To Date Tetanus Booster (TDap): Unknown PED Vaccines UTD: Yes First/Initial COVID19 Vaccinat: n/a Second COVID19 Vaccination Venkatesh: n/a Third COVID19 Vaccination Date: n/a Seasonal Allergies Seasonal Allergies: No Past Medical History Surgery/Hospitalization HX: DIALYSIS PT Surgeries: Yes (BILAT ING HERNIA, ESS, ) Abdominal, Adenoidectomy, Appendectomy, Tonsillectomy Respiratory: No Chronic Bronchitis Currently Using CPAP: No Currently Using BIPAP: No Cardiac: Yes (BP MEDICATIONS IN THE PAST-NOT CURRENTLY) Hypertension Neurological: Yes Neuropathy, Seizure Disorder, Stroke Genitourinary: Yes Kidney Stones Gastrointestinal: No (HX OF PANCREATISIS) Pancreatitis Musculoskeletal: Yes Arthritis Endocrine: Yes (HAS AN INSULIN PUMP) Diabetes, Insulin dep HEENT: Yes (LEFT EYE SCLERITIS, RIGHT LOSS PERIPHERALVISION AND DEPTH PERCEPTION) Loss of Vision: Right Hearing Impairment: Denies Cancer: No Psychosocial: Yes Sleep Difficulties, Anxiety, Depression Integumentary: No Blood Disorders: No Family Medical History Colon cancer MATERNAL GRANDFATHER Completed stroke 19 FATHER Deafness or hearing loss 19 FATHER Diabetes mellitus 19 MOTHER (MOM, BROTHER, AUNTS) Gastroenteritis 19 MOTHER Hypercholesterolemia 19 FATHER Hypertension 19 FATHER 19 MOTHER Neoplasm PATERNAL GRANDFATHER (STOMACH) MATERNAL GRANDFATHER (COLON) Psychosocial problem 19 MOTHER Seizure disorder 19 FATHER No Pertinent Family Hx Physical Exam Vital Signs Vital Signs - First Documented 02/22/21 09:43 Temp 38.2 Pulse 108 Resp 20 B/P (MAP) 149/83 (105) Pulse Ox 92 O2 Delivery Room Air Capillary Refill : Less Than 3 Seconds Height, Weight, BMI Height: 5'10.00" Weight: 185lbs. 2.0oz. [id number]; 28.00 BMI Method: General Appearance: No Apparent Distress, Other (Appears older than his stated age.) Eyes: Bilateral Eye Normal Inspection, Bilateral Eye PERRL, Bilateral Eye EOMI HEENT: PERRL/EOMI, Normal ENT Inspection, Pharynx Normal Respiratory: Chest Non Tender, Lungs Clear Cardiovascular: Regular Rate, Rhythm, No Edema Gastrointestinal: Non Tender, Soft Neurologic/Psychiatric: Alert, Oriented x3, No Motor/Sensory Deficits, tabulating supervisor II- XII Norm as Tested Focused Exam Sepsis Stage: Ruled Out Lactate Level 02/22/21 09:50: Lactic Acid Level 0.80 Lactic Acid Level Laboratory Tests Test 02/22/21 09:50 Lactic Acid Level 0.80 MMOL/L (0.50-2.00) Procedures/Interventions Date of ETT Placement: Mar 02, 2019 Time of ETT Placement: 319 Progress/Results/Core Measures Suspected Sepsis SIRS Temperature: Pulse: 108 Respiratory Rate: 20 Laboratory Tests 02/22/21 09:50: White Blood Count 2.7L Blood Pressure 149 /83 Mean: 105 02/22/21 09:50: Lactic Acid Level 0.80 Laboratory Tests 02/22/21 09:50: Creatinine 3.00H, Platelet Count 154, Total Bilirubin 0.3 Results/Orders Lab Results Laboratory Tests Test 02/22/21 09:43 02/22/21 09:50 02/22/21 10:50 02/22/21 12:25 Range/Units Urine Color YELLOW Urine Clarity CLEAR Urine pH 8.5 5-9 Urine Specific [place]ley 1.015 L 1.016-1.022 Urine Protein 3+ H NEGATIVE Urine Glucose (UA) 2+ H NEGATIVE Urine Ketones NEGATIVE NEGATIVE Urine Nitrite NEGATIVE NEGATIVE Urine Bilirubin NEGATIVE NEGATIVE Urine Urobilinogen 0.2 < = 1.0 MG/DL Urine Leukocyte Esterase NEGATIVE NEGATIVE Urine RBC (Auto) TRACE H NEGATIVE Urine RBC NONE /HPF Urine WBC 0-2 /HPF Urine Squamous Epithelial Cells 0-2 /HPF Urine Crystals NONE /LPF Urine Bacteria NEGATIVE /HPF Urine Casts NONE /LPF Urine Mucus NEGATIVE /LPF Urine Culture Indicated NO White Blood Count 2.7 L 4.3-11.0 10^3/uL Red Blood Count 2.23 L 4.30-5.52 10^6/uL Hemoglobin 6.8 *L 13.3-17.7 g/dL Hematocrit 20 *L 40-54 % Mean Corpuscular Volume 88 80-99 fL Mean Corpuscular Hemoglobin 30 25-34 pg Mean Corpuscular Hemoglobin Concent 35 32-36 g/dL Red Cell Distribution Width 13.0 10.0-14.5 % Platelet Count 154 130-400 10^3/uL Mean Platelet Volume 9.7 9.0-12.2 fL Immature Granulocyte % (Auto) 0 % Neutrophils (%) (Auto) 62 42-75 % Lymphocytes (%) (Auto) 18 12-44 % Monocytes (%) (Auto) 18 H 0-12 % Eosinophils (%) (Auto) 1 0-10 % Basophils (%) (Auto) 0 0-10 % Neutrophils # (Auto) 1.7 L 1.8-7.8 X 10^3 Lymphocytes # (Auto) 0.5 L 1.0-4.0 X 10^3 Monocytes # (Auto) 0.5 0.0-1.0 X 10^3 Eosinophils # (Auto) 0.0 0.0-0.3 10^3/uL Basophils # (Auto) 0.0 0.0-0.1 10^3/uL Immature Granulocyte # (Auto) 0.0 0.0-0.1 10^3/uL Neutrophils % (Manual) 65 % Lymphocytes % (Manual) 18 % Monocytes % (Manual) 13 % Eosinophils % (Manual) 1 % Basophils % (Manual) 1 % Band Neutrophils 1 % Sodium Level 137 135-145 MMOL/L Potassium Level 4.0 3.6-5.0 MMOL/L Chloride Level 97 L 98-107 MMOL/L Carbon Dioxide Level 31 21-32 MMOL/L Anion Gap 9 5-14 MMOL/L Blood Urea Nitrogen 14 7-18 MG/DL Creatinine 3.00 H 0.60-1.30 MG/DL Estimat Glomerular Filtration Rate 23 BUN/Creatinine Ratio 5 Glucose Level 183 H 70-105 MG/DL Lactic Acid Level 0.80 0.50-2.00 MMOL/L Calcium Level 8.4 L 8.5-10.1 MG/DL Corrected Calcium 8.9 8.5-10.1 MG/DL Total Bilirubin 0.3 0.1-1.0 MG/DL Aspartate Amino Transf (AST/SGOT) 25 5-34 U/L Alanine Aminotransferase (ALT/SGPT) 22 0-55 U/L Alkaline Phosphatase 62 40-136 U/L C-Reactive Protein 0.39 <0.50 MG/DL Total Protein 6.6 6.4-8.2 GM/DL Albumin 3.4 3.2-4.5 GM/DL Influenza Type A Antigen NEGATIVE NEGATIVE Influenza Type B Antigen NEGATIVE NEGATIVE Group A Streptococcus Screen NEGATIVE NEGATIVE SARS-CoV-2 RNA (RT-PCR) Detected H Not Detecte My Orders Orders - ABDIRAHMAN BRANDON DO Cbc With Automated Diff (02/22/21 09:56) Comprehensive Metabolic Panel (02/22/21 09:56) Lactic Acid Analyzer (02/22/21 09:56) Chest 1 View Ap/Pa Only (02/22/21 09:56) Blood Culture (02/22/21 09:56) Crp Fs (02/22/21 09:56) Covid 19 Inhouse Test (02/22/21 09:56) Isolation Central Supply Req (02/22/21 09:56) Manual Differential (02/22/21 09:50) Influenza A & B Antigens (02/22/21 10:14) Blood Culture (02/22/21 10:21) Cefepime Injection (Maxipime Injection) (02/22/21 10:45) Ns Iv 1000 Ml (Sodium Chloride 0.9%) (02/22/21 10:45) Rapid Strep A Screen (02/22/21 10:40) Ua Culture If Indicated (02/22/21 11:23) Medications Given in ED Current Medications Medications Dose Ordered Sig/Ruperto Route Start Time Stop Time Status Last Admin Dose Admin Cefepime HCl 2000 mg/Sodium Chloride 50 ml @ 100 mls/hr ONCE ONCE IV 02/22/21 10:45 02/22/21 11:14 DC 02/22/21 10:52 100 MLS/HR Vital Signs/I&O 02/22/21 09:43 Temp 38.2 Pulse 108 Resp 20 B/P (MAP) 149/83 (105) Pulse Ox 92 O2 Delivery Room Air Capillary Refill : Less Than 3 Seconds Blood Pressure Mean: 105 Departure Communication (Admissions) Chest x-ray: No acute cardiopulmonary disease. Patient with acute viral syndrome with out respiratory compromise, Covid positive. Delay in obtaining Covid result due to need to repeat send out lab. In the interim, patient given IV fluids and antibiotics due to the possibility of line sepsis. Although the possibility of line sepsis not being entirely eliminated it appears less likely given the improbability of dual diagnosis and overall clinical findings. Recommendations are supportive care outpatient Regeneron and therapy and watchful waiting. Return precautions reviewed. Patient verbalizes understanding agreement with discharge instructions prior to departure. Impression Primary Impression: Acute febrile illness Additional Impression: COVID Disposition: HOME, SELF-CARE Condition: Stable Departure-Patient Inst. Decision time for Depature: 15:47 Referrals: FANY WALTER APRN (PCP) Primary Care Physician [facility] (Family) Primary Care Physician Patient Instructions: COVID-19 ED Add. Discharge Instructions: Please take newly prescribed medications as directed. Arrange for outpatient Regeneron infusions. Notify dialysis center of Covid status. Take Tylenol as needed for fever and newly prescribed medications as directed. Return to the ED if new or worsening symptoms. All discharge instructions reviewed with patient and/or family. Voiced understanding. Scripts Albuterol Sulfate (Proventil Hfa) 6.7 Gm Hfa.aer.ad 6.7 GM INH Q4H PRN for DYSPNEA, #1 GM Prov: ABDIRAHMAN BRANDON DO 02/22/21 Azithromycin (Zithromax) 250 Mg Tablet 250 MG PO UD, #6 TAB TAKE 2 TABLETS TODAY, THEN TAKE 1 TABLET DAILY FOR 4 MORE DAYS Prov: ABDIRAHMAN BRANDON DO 02/22/21 Prednisone (Prednisone) 20 Mg Tab 40 MG PO DAILY, #6 TAB 0 Refills Prov: ABDIRAHMAN BRANDON DO 02/22/21 ABDIRAHMAN BRANDON DO Feb 22, 2021 15:47
[2021-02-22] MEDS ORDERED: PRD20T PO (15:51)
[2021-02-22] MEDS ORDERED: AZIT250T PO (15:51)
[2021-02-22] MEDS ORDERED: ALBU6.7H8 INH (15:51)
[2021-02-22 15:55] VITALS: BP 170/92
== END 2021-02-22 15:56 | disposition home or self-care (01) ==
LOC: EDUNIT# 09:39 → ER FS 09:40
DX: U07.1 COVID-19 (principal); Z86.73 Personal history of transient ischemic attack (TIA), and cerebral infarction without residual deficits; E11.9 Type 2 diabetes mellitus without complications; F41.9 Anxiety disorder, unspecified; F32.9 Major depressive disorder, single episode, unspecified; I10 Essential (primary) hypertension; G40.909 Epilepsy, unspecified, not intractable, without status epilepticus; Z72.0 Tobacco use; Z79.4 Long term (current) use of insulin; Z79.899 Other long term (current) drug therapy; Z79.82 Long term (current) use of aspirin
CPT/HCPCS: 36415; 71045; 80053; 81000; 83605; 85007; 85027; 86141; 87040; 87430; 87636; 87804

== ENCOUNTER 2021-02-26 09:07 | Emergency (ER) | payer OTHER ==
[~2021-02-26] VITALS: Ht 172 cm; Wt 95.0 kg
[~2021-02-26 09:07] MED LIST changes: +ALBU6.7H8 INH; +AZIT250T PO; +PRD20T PO
[2021-02-26 09:43] VITALS: BP 184/92
--- NOTE | 2021-02-26 09:47 | ED General ---
General Chief Complaint: COVID19 Suspect/Confirmed Stated Complaint: COVID +,SOB Source of Information: Patient, Old Records History of Present Illness Date Seen by Provider: Feb 26, 2021 Time Seen by Provider: 09:12 Initial Comments 45-year-old male presenting with complaints of continued fevers and shortness of breath with cough. He reports having some diarrhea and nausea as well. He was diagnosed with Covid on Thursday here in the emergency department. He does dialysis Thursday. He reports he dialyzed yesterday as scheduled. He follows with nephrology out of [facility] in [place]. He presented today because he was continuing to run fevers, continues to feel short of breath, continues to feel rundown and fatigued. Timing/Duration: 5-6 Days Severity: Moderate Associated Systoms: Chest Pain (Pains in his chest from coughing), Cough, Fever/Chills, Headaches, Loss of Appetite, Malaise, Nausea/Vomiting (Nauseated but no vomiting); No Seizure; Shortness of Air; No Syncope; Weakness (Generalized) Allergies and Home Medications Allergies Coded Allergies: NKANo Known Allergies (Verified Allergy, Unknown, 05/19/05) clindamycin (Verified Allergy, Unknown, 05/12/20) Patient Home Medication List Home Medication List Reviewed: Yes Albuterol Sulfate (Proventil Hfa) 6.7 Gm Hfa.aer.ad, 6.7 GM INH Q4H PRN for DYSPNEA Prescribed by: ABDIRAHMAN BRANDON on 02/22/21 155 Amlodipine Besylate (Amlodipine Besylate) 5 Mg Tablet, 5 MG PO DAILY Prescribed by: PERFECTO JOEL on 05/16/20 1146 Aspirin (Aspirin) 81 Mg Tab.chew, 81 MG PO DAILY, (Reported) Entered as Reported by: CLARK BOYD on 05/14/20 1433 Azithromycin (Zithromax) 250 Mg Tablet, 250 MG PO UD Prescribed by: ABDIRAHMAN BRANDON on 02/22/21 155 Cephalexin (Cephalexin) 500 Mg Tablet, 1,000 MG PO BID Prescribed by: ROSALINO DUQUE on 07/15/20 1419 Cholecalciferol (Vitamin D3) (Vitamin D3) 125 Mcg Tablet, 250 MCG PO DAILY, (Reported) Entered as Reported by: CLARK BOYD on 05/14/20 1433 Clonidine HCl (Clonidine HCl) 0.1 Mg Tablet, 0.1 MG PO QID, (Reported) Entered as Reported by: CLARK BODY on 05/14/20 1433 Cyanocobalamin (Vitamin B-12) (B-12) 500 Mcg Tablet, 1,000 MCG PO BID, (Reported) Entered as Reported by: CLARK BOYD on 05/14/20 1433 Cyclobenzaprine HCl (Cyclobenzaprine HCl) 10 Mg Tablet, 10 MG PO DAILY PRN for MUSCLE SPASMS, (Reported) Entered as Reported by: CLARK BOYD on 05/14/20 1433 Furosemide (Furosemide) 20 Mg Tablet, 20 MG PO BID, (Reported) Entered as Reported by: CLARK BOYD on 05/14/20 1433 Gabapentin (Gabapentin) 800 Mg Tablet, 800 MG PO TID, (Reported) Entered as Reported by: CLARK BOYD on 05/14/20 143 Guaifenesin (Mucinex) 1,200 Mg Tab.er.12h, 1,200 MG PO Q12H Prescribed by: SATISH WAYNE on 02/26/21 1128 Hydrocodone/Acetaminophen (Hydrocodone-Acetamin 5-325 mg) 1 Each Tablet, 1 TAB PO Q8H PRN for Chest Wall Pain Prescribed by: SATISH WAYNE on 02/26/21 1129 Insulin Determir (Levemir) 1,000 Units/10 Ml Soln, 10 UNITS SQ HS Prescribed by: PERFECTO JOEL on 05/16/20 1146 Insulin Lispro (Insulin Lispro) 100 Unit/1 Ml Vial, SQ QIDACHS, (Reported) Entered as Reported by: CLARK BOYD on 05/14/20 143 Lisinopril (Lisinopril) 40 Mg Tablet, 40 MG PO DAILY, (Reported) Entered as Reported by: CLARK BOYD on 05/14/20 1433 Methylphenidate HCl (Methylphenidate HCl) 5 Mg Tablet, 5 MG PO BID, (Reported) Entered as Reported by: CLARK BOYD on 05/14/20 143 Methylphenidate HCl (Methylphenidate HCl) 10 Mg Tablet, 10 MG PO BID, (Reported) Entered as Reported by: CLARK BOYD on 05/14/20 1433 Metoprolol Succinate (Metoprolol Succinate) 100 Mg Tab.er.24h, 100 MG PO DAILY Prescribed by: PERFECTO JOEL on 05/16/20 1146 [place] 3 Polyunsat Fatty Acids (Fish Oil 1,000 mg Capsule) 1,000 Mg Cap, 1,000 MG PO BID, (Reported) Entered as Reported by: CLARK BOYD on 05/14/20 1433 Potassium Chloride (Potassium Chloride) 20 Meq Tablet.er, 20 MEQ PO BID, (Reported) Entered as Reported by: CLARK BOYD on 05/14/20 1433 Prednisone (Prednisone) 20 Mg Tab, 40 MG PO DAILY Prescribed by: ABDIRAHMAN BRANDON on 02/22/21 1551 Quetiapine Fumarate (Quetiapine Fumarate) 25 Mg Tablet, 50 MG PO HS, (Reported) Entered as Reported by: CLARK BOYD on 05/14/20 1433 Sertraline HCl (Sertraline HCl) 100 Mg Tablet, 100 MG PO DAILY, (Reported) Entered as Reported by: CLARK BOYD on 05/14/20 1433 Simvastatin (Simvastatin) 40 Mg Tablet, 40 MG PO HS, (Reported) Entered as Reported by: CLARK BOYD on 05/14/20 1433 Trazodone HCl (Trazodone HCl) 150 Mg Tablet, 150 MG PO HS, (Reported) Entered as Reported by: CLARK BOYD on 05/14/20 1433 Review of Systems Review of Systems Constitutional: chills, fever, malaise, weakness (generalized) EENTM: nose congestion Respiratory: cough, short of breath; No stridor, No wheezing Cardiovascular: chest pain (pain in chest from coughing) Gastrointestinal: diarrhea, loss of appetite, nausea; No vomiting Genitourinary: no symptoms reported Musculoskeletal: muscle pain (generalized body aches) Skin: No rash Psychiatric/Neurological: Headache, Weakness (general) Past Izukloe-Unhfla-Tdxdrq Hx Patient Social History Tobacco Use?: No Substance use?: No Alcohol Use?: No Immunizations Up To Date Tetanus Booster (TDap): Unknown PED Vaccines UTD: Yes First/Initial COVID19 Vaccinat: n/a Second COVID19 Vaccination Venkatesh: n/a Third COVID19 Vaccination Date: n/a Seasonal Allergies Seasonal Allergies: No Past Medical History Surgery/Hospitalization HX: DIALYSIS PT Surgeries: Yes (BILAT ING HERNIA, ESS, ) Abdominal, Adenoidectomy, Appendectomy, Tonsillectomy Respiratory: No Chronic Bronchitis Currently Using CPAP: No Currently Using BIPAP: No Cardiac: Yes (BP MEDICATIONS IN THE PAST-NOT CURRENTLY) Hypertension Neurological: Yes Neuropathy, Seizure Disorder, Stroke Genitourinary: Yes Kidney Stones Gastrointestinal: No (HX OF PANCREATISIS) Pancreatitis Musculoskeletal: Yes Arthritis Endocrine: Yes (HAS AN INSULIN PUMP) Diabetes, Insulin dep HEENT: Yes (LEFT EYE SCLERITIS, RIGHT LOSS PERIPHERALVISION AND DEPTH PERCEPTION) Loss of Vision: Right Hearing Impairment: Denies Cancer: No Psychosocial: Yes Sleep Difficulties, Anxiety, Depression Integumentary: No Blood Disorders: No Family Medical History Colon cancer MATERNAL GRANDFATHER Completed stroke 19 FATHER Deafness or hearing loss 19 FATHER Diabetes mellitus 19 MOTHER (MOM, BROTHER, AUNTS) Gastroenteritis 19 MOTHER Hypercholesterolemia 19 FATHER Hypertension 19 FATHER 19 MOTHER Neoplasm PATERNAL GRANDFATHER (STOMACH) MATERNAL GRANDFATHER (COLON) Psychosocial problem 19 MOTHER Seizure disorder 19 FATHER No Pertinent Family Hx Physical Exam Vital Signs Vital Signs - First Documented 02/26/21 09:43 Temp 37.0 Pulse 102 Resp 20 B/P (MAP) 184/92 (122) O2 Delivery Room Air Capillary Refill : Height, Weight, BMI Height: 5'10.00" Weight: 185lbs. 2.0oz. 83.339452gi; 28.00 BMI Method: General Appearance: Chronically ill, Other (appears to not feel well) Eyes: Bilateral Eye PERRL, Bilateral Eye EOMI HEENT: Moist Mucous Membranes; No Photophobia Neck: Full Range of Motion, Normal Inspection, Non Tender, Supple Respiratory: No Accessory Muscle Use, No Respiratory Distress, Decreased Breath Sounds, Other (tender to chest wall palpation) Cardiovascular: Regular Rate, Rhythm, Normal Peripheral Pulses Gastrointestinal: Normal Bowel Sounds, No Pulsatile Mass, Non Tender, Soft Rectal: Deferred Extremity: Normal Capillary Refill, Normal Inspection, No Calf Tenderness, No Pedal Edema Neurologic/Psychiatric: Alert, Oriented x3, department operations manager II-XII Norm as Tested, Other (flat affect) Skin: Normal Color, Warm/Dry Focused Exam Lactate Level 02/26/21 09:20: Lactic Acid Level 1.17 Lactic Acid Level Laboratory Tests Test 02/26/21 09:20 Lactic Acid Level 1.17 MMOL/L (0.50-2.00) Procedures/Interventions Date of ETT Placement: Mar 02, 2019 Time of ETT Placement: 0320 Progress/Results/Core Measures Suspected Sepsis SIRS Temperature: Pulse: Respiratory Rate: Laboratory Tests 02/26/21 09:20: White Blood Count 1.9L Blood Pressure / Mean: 02/26/21 09:20: Lactic Acid Level 1.17 Laboratory Tests 02/26/21 09:20: Creatinine 5.39#H, INR Comment 0.9, Platelet Count 166, Total Bilirubin 0.3 Results/Orders Lab Results Laboratory Tests Test 02/26/21 09:20 Range/Units White Blood Count 1.9 L 4.3-11.0 10^3/uL Red Blood Count 2.40 L 4.30-5.52 10^6/uL Hemoglobin 7.2 L 13.3-17.7 g/dL Hematocrit 21 L 40-54 % Mean Corpuscular Volume 88 80-99 fL Mean Corpuscular Hemoglobin 30 25-34 pg Mean Corpuscular Hemoglobin Concent 34 32-36 g/dL Red Cell Distribution Width 12.7 10.0-14.5 % Platelet Count 166 130-400 10^3/uL Mean Platelet Volume 10.1 9.0-12.2 fL Immature Granulocyte % (Auto) 1 % Neutrophils (%) (Auto) 57 42-75 % Lymphocytes (%) (Auto) 34 12-44 % Monocytes (%) (Auto) 8 0-12 % Eosinophils (%) (Auto) 0 0-10 % Basophils (%) (Auto) 0 0-10 % Neutrophils # (Auto) 1.1 L 1.8-7.8 X 10^3 Lymphocytes # (Auto) 0.7 L 1.0-4.0 X 10^3 Monocytes # (Auto) 0.2 0.0-1.0 X 10^3 Eosinophils # (Auto) 0.0 0.0-0.3 10^3/uL Basophils # (Auto) 0.0 0.0-0.1 10^3/uL Immature Granulocyte # (Auto) 0.0 0.0-0.1 10^3/uL Prothrombin Time 12.7 12.2-14.7 SEC INR Comment 0.9 0.8-1.4 Activated Partial Thromboplast Time 37 H 24-35 SEC Sodium Level 135 135-145 MMOL/L Potassium Level 3.6 3.6-5.0 MMOL/L Chloride Level 93 L 98-107 MMOL/L Carbon Dioxide Level 29 21-32 MMOL/L Anion Gap 13 5-14 MMOL/L Blood Urea Nitrogen 34 H 7-18 MG/DL Creatinine 5.39 #H 0.60-1.30 MG/DL Estimat Glomerular Filtration Rate 12 BUN/Creatinine Ratio 6 Glucose Level 191 H 70-105 MG/DL Lactic Acid Level 1.17 0.50-2.00 MMOL/L Calcium Level 8.1 L 8.5-10.1 MG/DL Corrected Calcium 8.8 8.5-10.1 MG/DL Magnesium Level 1.8 1.6-2.4 MG/DL Total Bilirubin 0.3 0.1-1.0 MG/DL Aspartate Amino Transf (AST/SGOT) 28 5-34 U/L Alanine Aminotransferase (ALT/SGPT) 16 0-55 U/L Alkaline Phosphatase 45 40-136 U/L Troponin I < 0.30 <0.30 NG/ML C-Reactive Protein 6.00 H <0.50 MG/DL Total Protein 6.6 6.4-8.2 GM/DL Albumin 3.1 L 3.2-4.5 GM/DL My Orders Orders - SATISH WAYNE MD Monitor-Rhythm Ecg Trace Only (02/26/21 09:39) Ed Iv/Invasive Line Start (02/26/21 09:39) Cbc With Automated Diff (02/26/21 09:39) Comprehensive Metabolic Panel (02/26/21 09:39) Crp Fs (02/26/21 09:39) Troponin I Fs (02/26/21 09:39) Protime With Inr (02/26/21 09:39) Partial Thromboplastin Time (02/26/21 09:39) Ekg Tracing (02/26/21 09:39) Blood Culture (02/26/21 09:40) Magnesium (02/26/21 09:40) Lactic Acid Analyzer (02/26/21 09:40) Chest 1 View Ap/Pa Only (02/26/21 09:41) Ns Iv 500 Ml (Sodium Chloride 0.9%) (02/26/21 10:05) Ondansetron Injection (Zofran Injectio (02/26/21 10:05) Hydrocodone/Apap 5/325 Tablet (Lortab 5 (02/26/21 11:23) Incentive Spirometry (Nursing) Q2H (02/26/21 11:23) Vital Signs/I&O 02/26/21 09:43 Temp 37.0 Pulse 102 Resp 20 B/P (MAP) 184/92 (122) O2 Delivery Room Air Capillary Refill : Progress Note #1: Progress Note Obtain basic labs including magnesium and blood cultures with a lactic acid. ABG since he was complaining of shortness of breath. His O2 saturation currently is running 96 to 98% on room air. Obtain a chest x-ray to evaluate his lungs and look for signs of pulmonary edema, infiltrate, pleural effusion, cardiomegaly. Electrocardiogram to evaluate for arrhythmia, ischemia with ST elevation, indications of electrolyte imbalance. Will give Zofran for nausea, NS 500 mL of IVF for hydration since he is a Dialysis patient. Progress Note #2: Progress Note Labs show white blood cell count is low at 1.9. He has continued anemia with hemoglobin of 7.2. His lactic acid is negative at 1.17. His creatinine is elevated to 5.39 consistent with him needing dialysis tomorrow. He shows continued infiltrates on his chest x-ray with some mild increase in pulmonary edema versus infiltrate. Again this would be consistent with him requiring dialysis tomorrow. His oxygen saturations have continued to be in the 94 to 97% range. His blood pressure has been elevated but he has chronic medications he takes for that. Counseled on using an incentive spirometer to try and help take deeper breaths and expand his lungs. Continue use of the albuterol to help with expanding his airways. Using Mucinex to help loosen and thin out his secretions and mucus. Suggested using a pillow or something to help splint his chest when he does cough. Will prescribe a few low-dose hydrocodone to try and help with the chest wall pain since he is unable to do steroids as they will shoot his s ugars up and anti-inflammatories due to his renal failure on dialysis. Counseled on follow-up and return precautions. ECG Initial ECG Impression Date: Feb 26, 2021 Initial ECG Impression Time: 09:25 Initial ECG Rate: 98 Initial ECG Rhythm: Normal Sinus Comment Normal sinus rhythm with a heart rate of 98 bpm. [place] interval 144 ms. Borderline left axis deviation. Prolonged QT interval of 453 ms with a QTc interval of [address] elevation. Appears similar to prior tracings. Diagnostic Imaging Diagonstic Imaging: Xray Plain Films/CT/US/NM/MRI: chest Comments NAME: [facility] REC#: [id number] PT STATUS: REG ER : 1975 PHYSICIAN: SATISH WAYNE MD ADMIT DATE: 02/26/21/ER FS Draft Date of Exam:02/26/21 CHEST 1 VIEW AP/PA ONLY EXAMINATION: Chest 1 view HISTORY: Covid positive, shortness of breath and fever COMPARISON: 02/22/2021 FINDINGS: Increasing patchy interstitial and airspace opacities seen throughout both lungs. No pleural effusion or pneumothorax. Right-sided central line is unchanged. Heart size and pulmonary vasculature are normal. The osseous structures are intact. IMPRESSION: 1. Increasing patchy interstitial and airspace opacities throughout both lungs compatible with history of Covid-19 and pneumonia. Dictated on workstation # [id number] Dict: 02/26/21 0955 Trans: 02/26/21 0959 [facility] [id number] Interpreted by: JACKSON PATEL DO Electronically signed by: Reviewed: Reviewed by Me Departure Impression Primary Impression: Respiratory tract infection due to COVID-19 virus Additional Impressions: Fever in adult Chronic kidney disease with end stage renal failure on dialysis Anemia, chronic renal failure Qualified Codes: N18.5 - Chronic kidney disease, stage 5; D63.1 - Anemia in chronic kidney disease Chest wall pain Disposition: 01 HOME, SELF-CARE Condition: Stable Departure-Patient Inst. Decision time for Depature: 11:25 Referrals: FANY WALTER APRN (PCP) Primary Care Physician [facility] (Family) Primary Care Physician Patient Instructions: COVID-19 ED, Fever, Adult ED, How to Use an Incentive Spirometer Add. Discharge Instructions: Try to stay well-hydrated and take Mucinex to help thin out the mucus and secretions. This will make it easier to cough up the congestion when you cough. Use the incentive spirometer to help expand your lungs and get more congestion out when you do cough. Consider using a pillow or something to splint against her chest when you are coughing. Use a humidifier or vaporizer at the bedside when you are sleeping. Use the pain medicine to help with the severe chest wall pain from coughing. Follow-up with your regular doctor for continued concerns All discharge instructions reviewed with patient and/or family. Voiced understanding. Scripts Guaifenesin (Mucinex) 1,200 Mg Tab.er.12h 1200 MG PO Q12H for Cough/Congestion for 10 Days, #20 TAB 0 Refills Prov: SATISH WAYNE MD 02/26/21 Hydrocodone/Acetaminophen (Hydrocodone-Acetamin 5-325 mg) 1 Each Tablet 1 TAB PO Q8H PRN for Chest Wall Pain for 5 Days, #15 TAB 0 Refills Prov: SATISH WAYNE MD 02/26/21 SATISH WAYNE MD Feb 26, 2021 09:47
[2021-02-26 09:50] LABS: HEMATOCRIT 21 % (40-54); HEMOGLOBIN 7.2 g/dL (13.3-17.7); MEAN CORPUSCULAR HEMOGLOBIN 30 pg (25-34)
[2021-02-26 09:51] LABS: BASOPHILS % (AUTO) 0 % (0-10); EOSINOPHILS % (AUTO) 0 % (0-10); LYMPHOCYTES # (AUTO) 0.7 X 10^3 (1.0-4.0); LYMPHOCYTES % (AUTO) 34 % (12-44); MEAN CORPUSCULAR HGB CONC 34 g/dL (32-36); MEAN CORPUSCULAR VOLUME 88 fL (80-99); MEAN PLATELET VOLUME 10.1 fL (9.0-12.2); MONOCYTES # (AUTO) 0.2 X 10^3 (0.0-1.0); MONOCYTES % (AUTO) 8 % (0-12); NEUTROPHILS # (AUTO) 1.1 X 10^3 (1.8-7.8); NEUTROPHILS % (AUTO) 57 % (42-75); PLATELET COUNT 166 10^3/uL (130-400); WHITE BLOOD COUNT 1.9 10^3/uL (4.3-11.0)
[2021-02-26 09:54] LABS: INR 0.9 (0.8-1.4); PROTHROMBIN TIME PATIENT 12.7 SEC (12.2-14.7)
--- NOTE | 2021-02-26 09:59 | Diagnostic Imaging Report ---
EXAMINATION: Chest 1 view HISTORY: Covid positive, shortness of breath and fever COMPARISON: 02/22/2021 FINDINGS: Increasing patchy interstitial and airspace opacities seen throughout both lungs. No pleural effusion or pneumothorax. Right-sided central line is unchanged. Heart size and pulmonary vasculature are normal. The osseous structures are intact. IMPRESSION: 1. Increasing patchy interstitial and airspace opacities throughout both lungs compatible with history of Covid-19 and pneumonia. Dictated by: Dictated on workstation # [id number]
[2021-02-26] MEDS ORDERED: NS IV 500 ML 500 ML IV STA (10:05)
[2021-02-26] MEDS ORDERED: ONDANSETRON 4 MG/2 ML (SDV) Z0FRAN IVP STA (10:05)
[2021-02-26 10:09] LABS: CARBON DIOXIDE 29 MMOL/L (21-32); CHLORIDE 93 MMOL/L (98-107); POTASSIUM 3.6 MMOL/L (3.6-5.0); SODIUM 135 MMOL/L (135-145)
[2021-02-26 10:10] LABS: ALANINE AMINOTRANSFERASE 16 U/L (0-55); ALBUMIN 3.1 GM/DL (3.2-4.5); ALKALINE PHOSPHATASE 45 U/L (40-136); BILIRUBIN,TOTAL 0.3 MG/DL (0.1-1.0); BUN/CREATININE RATIO 6; CALCIUM 8.1 MG/DL (8.5-10.1); CREATININE SERUM 5.39 MG/DL (0.60-1.30); GFR ESTIMATED 12; GLUCOSE 191 MG/DL (70-105); TOTAL PROTEIN 6.6 GM/DL (6.4-8.2)
[2021-02-26] MEDS ORDERED: HYDROcodone/APAP 5 MG/325 MG (LORTAB) TAB PO STA (11:23)
[2021-02-26] MEDS ORDERED: ACHD5005 PO (11:28)
[2021-02-26] MEDS ORDERED: GUAI120013 PO (11:28)
== END 2021-02-26 11:55 | disposition home or self-care (01) ==
LOC: EDUNIT# 09:07 → ER FS 09:09
DX: U07.1 COVID-19 (principal); J98.8 Other specified respiratory disorders; I12.0 Hypertensive chronic kidney disease with stage 5 chronic kidney disease or end stage renal disease; N18.6 End stage renal disease; E11.22 Type 2 diabetes mellitus with diabetic chronic kidney disease; D63.1 Anemia in chronic kidney disease; E11.40 Type 2 diabetes mellitus with diabetic neuropathy, unspecified; F41.9 Anxiety disorder, unspecified; F32.9 Major depressive disorder, single episode, unspecified; G40.909 Epilepsy, unspecified, not intractable, without status epilepticus; Z73.0 Burn-out; Z86.73 Personal history of transient ischemic attack (TIA), and cerebral infarction without residual deficits; Z90.49 Acquired absence of other specified parts of digestive tract; Z99.2 Dependence on renal dialysis; Z88.1 Allergy status to other antibiotic agents; Z79.4 Long term (current) use of insulin; Z79.52 Long term (current) use of systemic steroids; Z79.82 Long term (current) use of aspirin; Z79.899 Other long term (current) drug therapy
CPT/HCPCS: 36415; 71045; 80053; 83605; 83735; 84484; 85025; 85610; 85730; 86141; 87040; 93005

== ENCOUNTER 2021-02-27 13:42 | Emergency (ER) | payer OTHER ==
[~2021-02-27] VITALS: Ht 172 cm; Wt 83.0 kg
[~2021-02-27 13:42] MED LIST changes: +ACHD5005 PO; +GUAI120013 PO
--- OUTSIDE RECORDS SUMMARY | 2021-02-27 13:50 | XMS REPORT | Encounter Summary ---
Author Author [facility] Organization [facility] Address Unknown Phone Unavailable Care Team Providers Care Substitute Crossing Guard Name Role Phone Lo Wilson MD Unavailable Ghada Haywood Unavailable Unavailable Carmelita Avila NP PCP Reason for Visit * Reason Onset Date Comments Transplant Referral 02/26/2021 Intake Interview- 1st Attempt Encounter Details Care Team Description Date Type Department Kenia Ortega Transplant Referral (Intake Interview- 1 st Attempt) 02/26/2021 Telephone Transplant: Main [facility], [facility] [address], [address] [place] [address] Social History Date Tobacco Use Types Packs/Day [...] as of this encounter Plan of Treatment Not on filedocumented as of this encounter Goals Goal Patient Associated Recent Progress Patient-Stat Aut hor Goal Type Problems ed? To be able to Stay in Own Home Lifestyle Fatoumata Jones for as Long as Possible MONTSE So documented as of this encounter Visit Diagnoses Not on filedocumented in this encounter Additional Health Concerns Noted Time Assessment 10/20/2019 9:49 AM CDT A fall risk assessment has been complet ed for the patient 07/20/2019 11:27 AM CDT PHQ-2 Depression Total Score: 0 documented as of this encounter Care Teams Start Date End Date Substitute Crossing Guard Relationship Specialty 04/13/19 Carmelita Avila, NIC PCP - General Nurse [address] [place] [address] [place] [address] 07/07/13 Lo Wilson MD [facility] [address] [place] [address] 07/11/13 Ghada Haywood documented as of this encounter
--- OUTSIDE RECORDS SUMMARY | 2021-02-27 13:50 | XMS REPORT | Encounter Summary ---
Author Author [facility] Organization [facility] Address Unknown Phone Unavailable Care Team Providers Care Auto Body Customizer Name Role Phone Lo Wilson MD Unavailable Ghada Haywood Unavailable Unavailable Carmelita Avila NP PCP Reason for Visit * Reason Onset Date Comments Transplant Referral 02/27/2021 Intake Interview- 2nd Attempt Encounter Details Care Team Description Date Type Department Kenia Ortega Transplant Referral (Intake Interview- 2 nd Attempt) 02/27/2021 Telephone Transplant: Main [facility] mp, [facility] [address], [address] [place] [address] Social History Date Tobacco Use [...] encounter Care Teams Start Date End Date Auto Body Customizer Relationship Specialty 04/13/19 Carmelita Avila, NIC PCP - General Nurse [address] [place] [address] [place] [address] 07/07/13 Lo Wilson MD [facility] [address] [place] [address] 07/11/13 Ghada Haywood documented as of this encounter
--- OUTSIDE RECORDS SUMMARY | 2021-02-27 13:50 | XMS REPORT | Clinical Summary ---
Author Author [facility] Organization [facility] Address Unknown Phone Unavailable Care Team Providers Care Bundle Breaker Name Role Phone Lo Wilson MD Unavailable Ghada Haywood Unavailable Unavailable Carmelita Avila NP PCP Source Comments Some departments are not documenting in the electronic medical record. If you d o not see the information that you expected, contact Release of Information in [facility] [employer] Information Management department at [phone] for further assistan ce in locating additional records.[facility] Allergies Comments Active Allergy Reactions Severity Noted [...] be differ ent from the original. Location: [facility] Diabetes 07/07/2013 Resolved Problems Problem Noted Date Resolved Date Generalized seizure 03/02/2019 03/08/2019 Hyperglycemia 03/02/2019 03/08/2019 Metabolic acidosis 03/02/2019 03/08/2019 Acute hypercapnic respiratory failure 03/02/2019 03/08/2019 On mechanically assisted ventilation 03/02/2019 0 03/08/2019 Seizure 03/02/2019 03/08/2019 Encounters Care Team Description Date Type Specialty Kenia Ortega Transplant Referral (Intake Interview- 2 nd Attempt) 02/27/2021 Telephone Transplant Surgery Kenia Ortega Transplant Referral (Intake Interview- 1 st Attempt) 02/26/2021 Telephone Transplant Surgery from Last 3 Months Immunizations Name Administration [...] CDT Respiratory Rate 97% 04/29/2019 11:55 AM EQUIPMENT ASSOCIATE Oxygen Saturation - - Inhaled Oxygen Concentration [...] filefrom Last 3 Months Advance Directives Patient Event Lighting Specialist Explanation Type Date Recorded Advance 03/03/2019 8:24 [...] Family? Care Teams Start Date End Date Bundle Breaker Relationship Specialty 04/13/19 Carmelita Avila NP PCP - General Nurse [address] [place] [address] Practitioner [place], [place] [id number] 07/07/13 Lo Wilson MD [facility] [address] [facility] [address] [facility] [address] [place], [place] [id number] 07/11/13 Ghada Haywood
[2021-02-27] MEDS ORDERED: ONDANSETRON 4 MG/2 ML (SDV) Z0FRAN IVP ONE ×3 (14:00→22:45)
--- NOTE | 2021-02-27 14:10 | ED General ---
General Chief Complaint: COVID19 Suspect/Confirmed Stated Complaint: SOB; COVID+ Source of Information: Patient, EMS Exam Limitations: Physical Impairments (TIMMY GIORDANO MD) History of Present Illness Date Seen by Provider: Feb 27, 2021 Time Seen by Provider: 13:41 Initial Comments Here by EMS with severe shortness of air. Patient has end-stage renal disease and is on dialysis on Thursday, Thursday and Thursday. He did receive dialysis today. He was seen on 02/22/2021 and found to be Covid positive here. Was seen again yesterday. He did have outpatient orders for monoclonal antibody therapy but he did not get that as he was too sick to go. He is unvaccinated. EMS was called to his house for shortness of breath. They found him pale and confused with O2 sat of 60%. They did establish IV and started him on oxygen. He did improve after oxygen and was on 15 L via nonrebreather with O2 sat in the upper 90s and mentating better on arrival. Noted to be tachycardic in the 120s and hypertensive in the 200s range. Patient is known diabetic with subsequent renal failure. Patient does report decreased appetite and not eating or drinking well and has had nausea and vomiting including vomiting on arrival here. Timing/Duration: 1 Week, Getting Worse Severity: Severe Associated Systoms: No Chest Pain; Cough, Fever/Chills, Nausea/Vomiting, Shortness of Air, Weakness (TIMMY GIORDANO MD) Allergies and Home Medications Allergies Coded Allergies: clindamycin (Verified Allergy, Unknown, 05/12/20) Patient Home Medication List Home Medication List Reviewed: Yes (TIMMY GIORDANO MD) Albuterol Sulfate (Proventil Hfa) 6.7 Gm Hfa.aer.ad, 6.7 GM INH Q4H PRN for DYSPNEA Prescribed by: ABDIRAHMAN BRANDON on 02/22/21 1551 Amlodipine Besylate (Amlodipine Besylate) 5 Mg Tablet, 5 MG PO DAILY Prescribed by: PERFECTO JOEL on 05/16/20 1146 Aspirin (Aspirin) 81 Mg Tab.chew, 81 MG PO DAILY, (Reported) Entered as Reported by: CLARK BOYD on 05/14/20 1433 Azithromycin (Zithromax) 250 Mg Tablet, 250 MG PO UD Prescribed by: ABDIRAHMAN BRANDON on 02/22/21 1551 Cephalexin (Cephalexin) 500 Mg Tablet, 1,000 MG PO BID Prescribed by: ROSALINO DUQUE on 07/15/20 1419 Cholecalciferol (Vitamin D3) (Vitamin D3) 125 Mcg Tablet, 250 MCG PO DAILY, (Reported) Entered as Reported by: CLARK BOYD on 05/14/20 1433 Clonidine HCl (Clonidine HCl) 0.1 Mg Tablet, 0.1 MG PO QID, (Reported) Entered as Reported by: CLARK BOYD on 05/14/20 1433 Cyanocobalamin (Vitamin B-12) (B-12) 500 Mcg Tablet, 1,000 MCG PO BID, (Reported) Entered as Reported by: CLARK BOYD on 05/14/20 1433 Cyclobenzaprine HCl (Cyclobenzaprine HCl) 10 Mg Tablet, 10 MG PO DAILY PRN for MUSCLE SPASMS, (Reported) Entered as Reported by: CLARK BOYD on 05/14/20 1433 Furosemide (Furosemide) 20 Mg Tablet, 20 MG PO BID, (Reported) Entered as Reported by: CLARK BOYD on 05/14/20 1433 Gabapentin (Gabapentin) 800 Mg Tablet, 800 MG PO TID, (Reported) Entered as Reported by: CLARK BOYD on 05/14/20 1433 Guaifenesin (Mucinex) 1,200 Mg Tab.er.12h, 1,200 MG PO Q12H Prescribed by: SATISH WAYNE on 02/26/21 1128 Hydrocodone/Acetaminophen (Hydrocodone-Acetamin 5-325 mg) 1 Each Tablet, 1 TAB PO Q8H PRN for Chest Wall Pain Prescribed by: SATISH WAYNE on 02/26/21 1129 Insulin Determir (Levemir) 1,000 Units/10 Ml Soln, 10 UNITS SQ HS Prescribed by: PERFECTO JOEL on 05/16/20 1146 Insulin Lispro (Insulin Lispro) 100 Unit/1 Ml Vial, SQ QIDACHS, (Reported) Entered as Reported by: CLARK BOYD on 05/14/20 1433 Lisinopril (Lisinopril) 40 Mg Tablet, 40 MG PO DAILY, (Reported) Entered as Reported by: CLARK BOYD on 05/14/20 1433 Methylphenidate HCl (Methylphenidate HCl) 5 Mg Tablet, 5 MG PO BID, (Reported) Entered as Reported by: CLARK BOYD on 05/14/20 143 Methylphenidate HCl (Methylphenidate HCl) 10 Mg Tablet, 10 MG PO BID, (Reported) Entered as Reported by: CLARK BOYD on 05/14/20 143 Metoprolol Succinate (Metoprolol Succinate) 100 Mg Tab.er.24h, 100 MG PO DAILY Prescribed by: PERFECTO JOEL on 05/16/20 1146 [place] 3 Polyunsat Fatty Acids (Fish Oil 1,000 mg Capsule) 1,000 Mg Cap, 1,000 MG PO BID, (Reported) Entered as Reported by: CLARK BOYD on 05/14/20 143 Potassium Chloride (Potassium Chloride) 20 Meq Tablet.er, 20 MEQ PO BID, (Reported) Entered as Reported by: CLARK BOYD on 05/14/20 143 Prednisone (Prednisone) 20 Mg Tab, 40 MG PO DAILY Prescribed by: ABDIRAHMAN BRANDON on 02/22/21 1551 Quetiapine Fumarate (Quetiapine Fumarate) 25 Mg Tablet, 50 MG PO HS, (Reported) Entered as Reported by: CLARK BOYD on 05/14/20 143 Sertraline HCl (Sertraline HCl) 100 Mg Tablet, 100 MG PO DAILY, (Reported) Entered as Reported by: CLARK BOYD on 05/14/20 143 Simvastatin (Simvastatin) 40 Mg Tablet, 40 MG PO HS, (Reported) Entered as Reported by: CLARK BOYD on 05/14/20 143 Trazodone HCl (Trazodone HCl) 150 Mg Tablet, 150 MG PO HS, (Reported) Entered as Reported by: CLARK BOYD on 05/14/20 143 Review of Systems Review of Systems Constitutional: see HPI, fever, weakness EENTM: nose congestion, throat pain Respiratory: cough, short of breath Cardiovascular: No chest pain, No edema Gastrointestinal: diarrhea, nausea, vomiting Musculoskeletal: no symptoms reported Skin: change in color; No lesions Psychiatric/Neurological: Headache, Weakness Hematologic/Lymphatic: No Symptoms Reported (TIMMY GIORDANO MD) All Other Systems Reviewed Negative Unless Noted: Yes (TIMMY GIORDANO MD) Past Klhslqb-Ysetsw-Kflrya Hx Patient Social History Tobacco Use?: No Substance use?: No Alcohol Use?: No (TIMMY GIORDANO MD) Immunizations Up To Date Tetanus Booster (TDap): Unknown PED Vaccines UTD: Yes First/Initial COVID19 Vaccinat: n/a Second COVID19 Vaccination Venkatesh: n/a Third COVID19 Vaccination Date: n/a (TIMMY GIORDANO MD) Seasonal Allergies Seasonal Allergies: No (TIMMY GIORDANO MD) Past Medical History Surgery/Hospitalization HX: DIALYSIS PT Surgeries: Yes (BILAT ING HERNIA, ESS, ) Abdominal, Adenoidectomy, Appendectomy, Tonsillectomy Respiratory: No Chronic Bronchitis Currently Using CPAP: No Currently Using BIPAP: No Cardiac: Yes (BP MEDICATIONS IN THE PAST-NOT CURRENTLY) Hypertension Neurological: Yes Neuropathy, Seizure Disorder, Stroke Genitourinary: Yes Kidney Stones Gastrointestinal: No (HX OF PANCREATISIS) Pancreatitis Musculoskeletal: Yes Arthritis Endocrine: Yes (HAS AN INSULIN PUMP) Diabetes, Insulin dep HEENT: Yes (LEFT EYE SCLERITIS, RIGHT LOSS PERIPHERALVISION AND DEPTH PER CEPTION) Loss of Vision: Right Hearing Impairment: Denies Cancer: No Psychosocial: Yes Sleep Difficulties, Anxiety, Depression Integumentary: No Blood Disorders: No (TIMMY GIORDANO MD) Family Medical History Reviewed Nursing Family Hx (TIMMY GIORDANO MD) Colon cancer MATERNAL GRANDFATHER Completed stroke 19 FATHER Deafness or hearing loss 19 FATHER Diabetes mellitus 19 MOTHER (MOM, BROTHER, AUNTS) Gastroenteritis 19 MOTHER Hypercholesterolemia 19 FATHER Hypertension 19 FATHER 19 MOTHER Neoplasm PATERNAL GRANDFATHER (STOMACH) MATERNAL GRANDFATHER (COLON) Psychosocial problem 19 MOTHER Seizure disorder 19 FATHER No Pertinent Family Hx (TIMMY GIORDANO MD) Physical Exam-Suspected Sepsis Physical Exam Vital Signs Vital Signs - First Documented (DIONISIO PULIDO) Vital Signs Capillary Refill : (TIMMY GIORDANO MD) Height, Weight, BMI Height: 5'10.00" Weight: 185lbs. 2.0oz. [id number]; 32.00 BMI Method: General Appearance: No Apparent Distress, WD/WN HEENT: PERRL/EOMI, Pharyngeal Erythema Neck: Non Tender, Supple Respiratory: Crackles, Respiratory Distress (Bilateral bases hypoxia without oxygen) Cardiovascular: No Murmur, Tachycardia Gastrointestinal: Non Tender, Soft Back: Normal Inspection, No CVA Tenderness, No Vertebral Tenderness Extremity: Normal Range of Motion, Non Tender Neurologic/Psychiatric: Alert, Oriented x3 Skin: normal color, warm/dry (TIMMY GIORDANO MD) Focused Exam Lactate Level 02/27/21 13:50: Lactic Acid Level 1.57 (DIONISIO PULIDO) Procedures/Interventions Date of ETT Placement: Mar 02, 2019 Time of ETT Placement: 0320 (TIMMY GIORDANO MD) Progress/Results/Core Measures Suspected Sepsis SIRS Temperature: Pulse: Respiratory Rate: Laboratory Tests 02/27/21 13:50: White Blood Count 2.0L Blood Pressure / Mean: 02/27/21 13:50: Lactic Acid Level 1.57 Laboratory Tests 02/27/21 13:50: Creatinine 3.88#H, INR Comment 0.9, Platelet Count 140, Total Bilirubin 0.4 (TIMMY GIORDANO MD) Results/Orders Lab Results Laboratory Tests Test 02/27/21 13:50 02/27/21 13:55 Range/Units White Blood Count 2.0 L 4.3-11.0 10^3/uL Red Blood Count 2.49 L 4.30-5.52 10^6/uL Hemoglobin 7.5 L 13.3-17.7 g/dL Hematocrit 22 L 40-54 % Mean Corpuscular Volume 88 80-99 fL Mean Corpuscular Hemoglobin 30 25-34 pg Mean Corpuscular Hemoglobin Concent 34 32-36 g/dL Red Cell Distribution Width 12.8 10.0-14.5 % Platelet Count 140 130-400 10^3/uL Mean Platelet Volume 10.4 9.0-12.2 fL Immature Granulocyte % (Auto) 1 % Neutrophils (%) (Auto) 73 42-75 % Lymphocytes (%) (Auto) 19 12-44 % Monocytes (%) (Auto) 6 0-12 % Eosinophils (%) (Auto) 0 0-10 % Basophils (%) (Auto) 1 0-10 % Neutrophils # (Auto) 1.4 L 1.8-7.8 X 10^3 Lymphocytes # (Auto) 0.4 L 1.0-4.0 X 10^3 Monocytes # (Auto) 0.1 0.0-1.0 X 10^3 Eosinophils # (Auto) 0.0 0.0-0.3 10^3/uL Basophils # (Auto) 0.0 0.0-0.1 10^3/uL Immature Granulocyte # (Auto) 0.0 0.0-0.1 10^3/uL Prothrombin Time 12.9 12.2-14.7 SEC INR Comment 0.9 0.8-1.4 Activated Partial Thromboplast Time 34 24-35 SEC D-Dimer 1.23 H 0.00-0.49 UG/ML Sodium Level 137 135-145 MMOL/L Potassium Level 4.1 3.6-5.0 MMOL/L Chloride Level 94 L 98-107 MMOL/L Carbon Dioxide Level 24 21-32 MMOL/L Anion Gap 19 H 5-14 MMOL/L Blood Urea Nitrogen 25 H 7-18 MG/DL Creatinine 3.88 #H 0.60-1.30 MG/DL Estimat Glomerular Filtration Rate 17 BUN/Creatinine Ratio 6 Glucose Level 248 H 70-105 MG/DL Lactic Acid Level 1.57 0.50-2.00 MMOL/L Calcium Level 8.0 L 8.5-10.1 MG/DL Corrected Calcium 9.0 8.5-10.1 MG/DL Total Bilirubin 0.4 0.1-1.0 MG/DL Aspartate Amino Transf (AST/SGOT) 46 H 5-34 U/L Alanine Aminotransferase (ALT/SGPT) 17 0-55 U/L Alkaline Phosphatase 41 40-136 U/L C-Reactive Protein 7.39 H <0.50 MG/DL Pro-B-Type Natriuretic Peptide > 30388.0 H <75.0 PG/ML Total Protein 6.4 6.4-8.2 GM/DL Albumin 2.8 L 3.2-4.5 GM/DL Blood Gas Puncture Site RT AC Blood Gas Patient Temperature 37.0 Arterial Blood pH 7.50 H 7.37-7.43 Arterial Blood Partial Pressure CO2 38 35-45 MMHG Arterial Blood Partial Pressure O2 62 L 79-93 MMHG Arterial Blood HCO3 30 H 23-27 MMOL/L Arterial Blood Total CO2 30.8 21.0-31.0 MMOL/L Arterial Blood Oxygen Saturation 93 L 94-100 % Arterial Blood Base Excess 6.1 H -2.5-2.5 MMOL/L Prabhakar Test YES-POS Blood Gas Ventilator Setting NO Blood Gas Inspired Oxygen 15 L (DIONISIO PULIDO) My Orders Orders - DIONISIO PULIDO Promethazine Injection (Phenergan Injec (02/27/21 20:30) Promethazine Injection (Phenergan Injec (02/27/21 20:45) Ondansetron Injection (Zofran Injectio (02/27/21 22:45) Diphenhydramine Injection (Benadryl Inje (02/27/21 22:45) Ondansetron Injection (Zofran Injectio (02/28/21 01:00) Lorazepam Injection (Ativan Injection) (02/28/21 02:15) Promethazine Injection (Phenergan Injec (02/28/21 02:15) Ondansetron Injection (Zofran Injectio (02/28/21 05:45) (DIONISIO PULIDO) Medications Given in ED Current Medications Medications Dose Ordered Sig/Ruperto Route Start Time Stop Time Status Last Admin Dose Admin Diphenhydramine HCl 25 mg ONCE ONCE IVP 02/27/21 22:45 02/27/21 22:46 DC 02/27/21 22:47 25 MG Lorazepam 0.5 mg ONCE ONCE IVP 02/28/21 02:15 02/28/21 02:16 DC 02/28/21 02:20 0.5 MG Ondansetron HCl 4 mg ONCE ONCE IVP 02/28/21 01:00 02/28/21 01:01 DC 02/28/21 00:58 4 MG Ondansetron HCl 4 mg ONCE ONCE IVP 02/28/21 05:45 02/28/21 05:46 DC 02/28/21 05:48 4 MG Ondansetron HCl 8 mg ONCE ONCE IVP 02/27/21 22:45 02/27/21 22:46 DC 02/27/21 22:47 8 MG Promethazine HCl 12.5 mg ONCE ONCE IVP 02/27/21 20:45 02/27/21 20:46 DC 02/27/21 20:38 12.5 MG Promethazine HCl 12.5 mg ONCE ONCE IVP 02/28/21 02:15 02/28/21 02:16 DC 02/28/21 02:20 12.5 MG (DIONISIO PULIDO) Vital Signs/I&O 02/27/21 02/27/21 02/27/21 12/29/21 19:00 20:00 21:00 23:00 Pulse 103 107 103 101 Resp 20 20 22 20 B/P (MAP) 181/98 176/103 166/94 178/105 Pulse Ox 95 98 92 98 O2 Delivery High Flow N/C High Flow N/C High Flow N/C High Flow N/C O2 Flow Rate 8.00 8.00 8.00 8.00 02/28/21 02/28/21 02/28/21 02/28/21 00:00 02:00 04:00 06:00 Pulse 98 96 93 101 Resp 23 20 19 B/P (MAP) 168/95 170/98 155/89 159/89 Pulse Ox 97 97 94 93 O2 Delivery High Flow N/C High Flow N/C High Flow N/C High Flow N/C O2 Flow Rate 8.00 8.00 8.00 8.00 02/28/21 00:00 Intake Total 600 ml Balance 600 ml (DIONISIO PULIDO) Vital Signs/I&O Capillary Refill : (TIMMY GIORDANO MD) Progress Note : Progress Note Seen and evaluated. IV by EMS. Sepsis protocol initiated. Patient changed from high flow O2 to high flow nasal cannula at 8 L with O2 sat 93 to 94%. We will check ABG and get EKG given tachycardia and hypoxia. He did receive dialysis today but he states that did not take fluid off and only did electrolyte exchange. He has not normally on oxygen at home. Decadron 6 mg IV ordered. Monitor patient. 1435: We will initiate mission control for transfers patient will require admission due to high flow O2 needs. Patient is complicated by end-stage renal disease requiring dialysis which is unavailable at our institution. 1500: Hydralazine 10 mg IV given for blood pressure 180s to 190s systolic. Patient with nausea. He did receive Zofran 4 mg IV earlier and we have repeated that now. Monitor patient. 1550: We are still waiting for placement. He is reporting more nausea. Phenergan 12.5 mg IV given. Blood pressure 160s systolic now. He is maintaining O2 sat mid 90s on high flow nasal cannula at 8 L. Monitor patient. 1720: [place] control recommended contact with [facility] in [place]. I have contacted them and spoke with their transfer team and attending physician, Dr. Bourgeois. He has graciously accepted the patient in transfer. Patient agrees to transfer. 1729: There is no local transport ambulances available for long-distance transfer. [facility] has declined transfer. We will pursue flight for transfer and this would benefit patient as well due to high flow oxygen requirements. This was discussed with the patient who agrees. Pending transfer. (TIMMY GIORDANO MD) Progress Note #1: Time: 19:18 Progress Note Assumed care of the patient at shift change and agree with above documented history physical exam and interventions by the previous physician. Patient has a bed at [facility] and [place]. He has received dialysis and so is okay on that front. He also got Decadron and is on high flow oxygen maintaining oxygen saturations in the mid 90s. We are informed because of the cold weather will require fixed wing transport and are expecting a call back on a fixed wing [facility] Another company will call us back in an hour or two as their fixed wing was unavailable at that time. Progress Note #2: Time: 20:02 Progress Note [facility] [place] advises they will have a fixed wing in the area about 930 to 10:00 tonight to transport the patient to . Progress Note #3: Time: 20:52 Progress Note [facility] call us back and states that weather is precluding them from flying. Earliest they could get out would be 9 AM. Nursing staff are trying other companies. 0130: We have spoke to several other companies about air evacuating the patient and the earliest any of them would consider would be 6 AM. We have looked into placement at a another local hospital and there are still no available beds. Patient's been experiencing nausea but good vital signs heart rate in the 90s, sats in the upper 90s, good blood pressure. Progress Note #4: Time: 06:38 Progress Note Patient requesting something to help "Zonk him out". 1 mg Ativan IV ordered. Vital signs and work of breathing are stable. (DIONISIO PULIDO) ECG Initial ECG Impression Date: Feb 27, 2021 Initial ECG Impression Time: 13:42 Initial ECG Rate: 120 Comment Sinus tachycardia with leftward axis. Left atrial enlargement. No evidence of ST elevation [place]. Similar but faster than previous of 02/26/2021. Interpreted by me. (TIMMY GIORDANO MD) Diagnostic Imaging Diagonstic Imaging: Xray Plain Films/CT/US/NM/MRI: chest Comments [facility] [place] NAME: S[facility] REC#: [id number] PT STATUS: REG ER : 1975 PHYSICIAN: TIMMY GIORDANO MD ADMIT DATE: 02/27/21/ER FS Draft Date of Exam:02/27/21 CHEST 1 VIEW AP/PA ONLY EXAMINATION: Chest 1 view HISTORY: COVID POS, hypoxia COMPARISON: 02/26/2021 FINDINGS: Heart size and pulmonary vasculature are normal. Stable patchy interstitial and airspace opacities throughout both lungs. No pleural effusion or pneumothorax. The osseous structures are intact. A right IJ central line is unchanged. IMPRESSION: 1. Stable patchy interstitial and airspace opacities throughout both lungs. Report was faxed to [facility] by carline at 2:24PM. Dictated on workstation # [id number] Dict: 02/27/21 1422 Trans: 02/27/21 1424 CARLINE [id number] Interpreted by: JACKSON PATEL DO Electronically signed by: Reviewed: Reviewed by Me (TIMMY GIORDANO MD) Departure Impression Primary Impression: Acute hypoxemic respiratory failure due to COVID-19 Additional Impressions: Pneumonia due to COVID-19 virus End stage renal disease on dialysis Insulin dependent diabetes mellitus Disposition: SHT-TRM HOSP Condition: Stable Transfer Transfer Reason: Exceeds level of care Time Spoke to Accepting Phy: 17:20 Transfer Facility: [place], [place], Dr. Bourgeois accepting Method of Transfer: Air (TIMMY GIORDANO MD) Departure-Patient Inst. Referrals: FANY WALTER APRN (PCP) Primary Care Physician [facility] (Family) Primary Care Physician TIMMY GIORDANO MD Feb 27, 2021 14:10 DIONISIO PULIDO Feb 27, 2021 19:20
[2021-02-27 14:18] LABS: INR 0.9 (0.8-1.4); PROTHROMBIN TIME PATIENT 12.9 SEC (12.2-14.7)
--- NOTE | 2021-02-27 14:24 | Diagnostic Imaging Report ---
EXAMINATION: Chest 1 view HISTORY: COVID POS, hypoxia COMPARISON: 02/26/2021 FINDINGS: Heart size and pulmonary vasculature are normal. Stable patchy interstitial and airspace opacities throughout both lungs. No pleural effusion or pneumothorax. The osseous structures are intact. A right IJ central line is unchanged. IMPRESSION: 1. Stable patchy interstitial and airspace opacities throughout both lungs. Report was faxed to [facility] by ariana at 2:24PM. Dictated by: Dictated on workstation # [id number]
[2021-02-27 14:26] LABS: FIBRIN DEGRADATION PRODUCTS 1.23 UG/ML (0.00-0.49)
[2021-02-27 14:28] LABS: BASOPHILS % (AUTO) 1 % (0-10); EOSINOPHILS % (AUTO) 0 % (0-10); HEMATOCRIT 22 % (40-54); HEMOGLOBIN 7.5 g/dL (13.3-17.7); LYMPHOCYTES # (AUTO) 0.4 X 10^3 (1.0-4.0); LYMPHOCYTES % (AUTO) 19 % (12-44); MEAN CORPUSCULAR HEMOGLOBIN 30 pg (25-34); MEAN CORPUSCULAR HGB CONC 34 g/dL (32-36); MEAN CORPUSCULAR VOLUME 88 fL (80-99); MEAN PLATELET VOLUME 10.4 fL (9.0-12.2); MONOCYTES # (AUTO) 0.1 X 10^3 (0.0-1.0); MONOCYTES % (AUTO) 6 % (0-12); NEUTROPHILS # (AUTO) 1.4 X 10^3 (1.8-7.8); NEUTROPHILS % (AUTO) 73 % (42-75); PLATELET COUNT 140 10^3/uL (130-400)
[2021-02-27 14:31] LABS: ABG BASE EXCESS 6.1 MMOL/L (-2.5-2.5); ABG OXYGEN SATURATION 93 % (94-100); ABG PCO2 38 MMHG (35-45); ABG PO2 62 MMHG (79-93); ABG TCO2 30.8 MMOL/L (21.0-31.0)
[2021-02-27 14:32] LABS: ALLENS TEST YES-POS; INSPIRED O2 15 L; VENTILATOR NO
[2021-02-27 14:41] LABS: CARBON DIOXIDE 24 MMOL/L (21-32); CHLORIDE 94 MMOL/L (98-107); SODIUM 137 MMOL/L (135-145)
[2021-02-27 14:42] LABS: ALANINE AMINOTRANSFERASE 17 U/L (0-55); ALBUMIN 2.8 GM/DL (3.2-4.5); ALKALINE PHOSPHATASE 41 U/L (40-136); BILIRUBIN,TOTAL 0.4 MG/DL (0.1-1.0); BUN/CREATININE RATIO 6; CREATININE SERUM 3.88 MG/DL (0.60-1.30); GFR ESTIMATED 17; GLUCOSE 248 MG/DL (70-105); TOTAL PROTEIN 6.4 GM/DL (6.4-8.2)
[2021-02-27 14:43] LABS: POTASSIUM 4.1 MMOL/L (3.6-5.0)
[2021-02-27] MEDS ORDERED: hydrALAZINE (APESOLINE) 20 MG/ML VIAL IV ONE (15:00)
[2021-02-27] MEDS ORDERED: PROMETHAZINE INJ 25 MG/ML (PHENERGAN) AMP IVP STA (15:43)
[2021-02-27] MEDS ORDERED: PROMETHAZINE INJ 25 MG/ML (PHENERGAN) AMP IVP ONE ×2 (20:30→20:45)
[2021-02-27] MEDS ORDERED: diphenhydrAMINE 50 MG/ML INJ (BENADRYL) IVP ONE (22:45)
[2021-02-28] MEDS ORDERED: ONDANSETRON 4 MG/2 ML (SDV) Z0FRAN IVP ONE ×2 (01:00→05:45)
[2021-02-28] MEDS ORDERED: LORazepam INJ 2 MG/ML (ATIVAN) VIAL IVP ONE ×2 (02:15→06:45)
[2021-02-28] MEDS ORDERED: PROMETHAZINE INJ 25 MG/ML (PHENERGAN) AMP IVP ONE (02:15)
[2021-02-28 10:27] LABS: WHITE BLOOD COUNT 3.8 10^3/uL (4.3-11.0)
[2021-02-28 10:28] LABS: BASOPHILS % (AUTO) 0 % (0-10); EOSINOPHILS % (AUTO) 0 % (0-10); HEMATOCRIT 21 % (40-54); HEMOGLOBIN 7.3 g/dL (13.3-17.7); LYMPHOCYTES % (AUTO) 14 % (12-44); MEAN CORPUSCULAR HEMOGLOBIN 30 pg (25-34); MEAN CORPUSCULAR HGB CONC 34 g/dL (32-36); MEAN CORPUSCULAR VOLUME 88 fL (80-99); MEAN PLATELET VOLUME 10.1 fL (9.0-12.2); MONOCYTES % (AUTO) 5 % (0-12); NEUTROPHILS % (AUTO) 79 % (42-75); PLATELET COUNT 178 10^3/uL (130-400)
[2021-02-28 10:29] LABS: LYMPHOCYTES # (AUTO) 0.5 X 10^3 (1.0-4.0); MONOCYTES # (AUTO) 0.2 X 10^3 (0.0-1.0)
[2021-02-28 10:32] LABS: CALCIUM 7.9 MG/DL (8.5-10.1); CREATININE SERUM 5.7 MG/DL (0.60-1.30); POTASSIUM 3.6 MMOL/L (3.6-5.0)
[2021-02-28] MEDS ORDERED: RT-ALBUTEROL HFA 8.5 GM INHALER IH PRN (10:45)
[2021-02-28 13:51] VITALS: BP 162/82
== END 2021-02-28 14:50 | disposition short-term general hospital (02) ==
LOC: EDUNIT# 13:42 → ER FS 13:43
DX: U07.1 COVID-19 (principal); J96.01 Acute respiratory failure with hypoxia; J12.82 Pneumonia due to coronavirus disease 2019; I12.0 Hypertensive chronic kidney disease with stage 5 chronic kidney disease or end stage renal disease; N18.6 End stage renal disease; E11.22 Type 2 diabetes mellitus with diabetic chronic kidney disease; E11.40 Type 2 diabetes mellitus with diabetic neuropathy, unspecified; F41.9 Anxiety disorder, unspecified; F32.9 Major depressive disorder, single episode, unspecified; G40.909 Epilepsy, unspecified, not intractable, without status epilepticus; Z86.73 Personal history of transient ischemic attack (TIA), and cerebral infarction without residual deficits; Z90.49 Acquired absence of other specified parts of digestive tract; Z99.2 Dependence on renal dialysis; Z99.81 Dependence on supplemental oxygen; Z88.1 Allergy status to other antibiotic agents; Z79.4 Long term (current) use of insulin; Z79.82 Long term (current) use of aspirin; Z79.899 Other long term (current) drug therapy
CPT/HCPCS: 36415; 71045; 80048; 80053; 82805; 82947; 83605; 83880; 85025; 85379; 85610; 85730; 86141; 87040; 87077; 93005

== ENCOUNTER 2021-03-26 22:07 | Emergency (ER) | payer OTHER ==
[~2021-03-26] VITALS: Ht 177 cm; Wt 88.6 kg
[2021-03-26] MEDS ORDERED: LORazepam 0.5 MG (ATIVAN) TABLET PO STA (23:36)
[2021-03-26 23:41] LABS: BASOPHILS % (AUTO) 0 % (0-10); EOSINOPHILS # (AUTO) 0.5 10^3/uL (0.0-0.3); EOSINOPHILS % (AUTO) 5 % (0-10); HEMATOCRIT 26 % (40-54); HEMOGLOBIN 8.6 g/dL (13.3-17.7); LYMPHOCYTES # (AUTO) 0.9 X 10^3 (1.0-4.0); LYMPHOCYTES % (AUTO) 10 % (12-44); MEAN CORPUSCULAR HEMOGLOBIN 31 pg (25-34); MEAN CORPUSCULAR HGB CONC 34 g/dL (32-36); MEAN CORPUSCULAR VOLUME 91 fL (80-99); MEAN PLATELET VOLUME 8.8 fL (9.0-12.2); MONOCYTES # (AUTO) 0.9 X 10^3 (0.0-1.0); MONOCYTES % (AUTO) 10 % (0-12); NEUTROPHILS # (AUTO) 7.3 X 10^3 (1.8-7.8); NEUTROPHILS % (AUTO) 75 % (42-75); PLATELET COUNT 378 10^3/uL (130-400); WHITE BLOOD COUNT 9.8 10^3/uL (4.3-11.0)
[2021-03-27 00:02] LABS: ABG BASE EXCESS 2.1 MMOL/L (-2.5-2.5); ABG OXYGEN SATURATION 60 % (94-100); ABG PCO2 33 MMHG (35-45); ABG PH 7.49 (7.37-7.43); ABG PO2 28 MMHG (79-93); ABG TCO2 26.1 MMOL/L (21.0-31.0)
[2021-03-27 00:03] LABS: ALLENS TEST POSITIVE; INSPIRED O2 RA; PATIENT TEMP 36.9; VENTILATOR NO
[2021-03-27 00:11] LABS: ALANINE AMINOTRANSFERASE 6 U/L (0-55); ALKALINE PHOSPHATASE 67 U/L (40-136); BILIRUBIN,TOTAL 0.2 MG/DL (0.1-1.0); BUN/CREATININE RATIO 7; CALCIUM 7.9 MG/DL (8.5-10.1); CARBON DIOXIDE 23 MMOL/L (21-32); CHLORIDE 101 MMOL/L (98-107); CREATININE SERUM 5.35 MG/DL (0.60-1.30); GFR ESTIMATED 13; GLUCOSE 190 MG/DL (70-105); POTASSIUM 4.1 MMOL/L (3.6-5.0); SODIUM 139 MMOL/L (135-145)
[2021-03-27 00:12] LABS: ALBUMIN 2.8 GM/DL (3.2-4.5); TOTAL PROTEIN 6.5 GM/DL (6.4-8.2)
[2021-03-27] MEDS ORDERED: NS 100 ML (IVPB) BAG IV ONE (00:15)
[2021-03-27] MEDS ORDERED: CATHETER FLUSH 10 ML SYR IV PRN (00:15)
[2021-03-27] MEDS ORDERED: HOLD METFORMIN - RECEIVED CONTRAST 20 ML VIAL IV SCH (00:15)
[2021-03-27] MEDS ORDERED: IOHEXOL 350 MG/ML 100 ML (OMNIPAQUE 350) VIAL IV ONE (00:15)
--- NOTE | 2021-03-27 00:17 | ED Respiratory ---
General Chief Complaint: Respiratory Problems Stated Complaint: SOB Source: patient Exam Limitations: no limitations (ABDIRAHMAN RICHARDS DO) History of Present Illness Date Seen by Provider: Mar 26, 2021 Time Seen by Provider: 22:30 Initial Comments Patient is a 45-year-old male with history of end-stage renal disease, on dialysis, Thursday/Thursday/Thursday with recent Covid infection who presents with increased anxiety, shortness of breath and nonproductive cough with chest tightness. Patient states he suffers from anxiety lately and had an anxiety attack this evening which he feels was triggered from a cough resulting in chest wall pain. He reports mild dyspnea but does not require oxygen at baseline. His O2 saturation on arrival noted to be in the 70s.. He denies fevers chills, nausea vomiting or sweats. No abdominal pain. Denies increased leg pain swelling or missed dialysis appointments. Patient is not currently on anticoagulation therapy. Severity: mild Modifying Factors: Improves With Other Associated Symptoms: other (ABDIRAHMAN RICHARDS DO) Allergies and Home Medications Allergies Coded Allergies: clindamycin (Verified Allergy, Unknown, 05/12/20) Patient Home Medication List Home Medication List Reviewed: Yes (ABDIRAHMAN RICHARDS DO) Albuterol Sulfate (Proventil Hfa) 6.7 Gm Hfa.aer.ad, 6.7 GM INH Q4H PRN for DYSPNEA Prescribed by: ABDIRAHMAN RICHARDS on 02/22/21 155 Amlodipine Besylate (Amlodipine Besylate) 5 Mg Tablet, 5 MG PO DAILY Prescribed by: PERFECTO JOEL on 05/16/20 1146 Aspirin (Aspirin) 81 Mg Tab.chew, 81 MG PO DAILY, (Reported) Entered as Reported by: CLARK BOYD on 05/14/20 1433 Azithromycin (Zithromax) 250 Mg Tablet, 250 MG PO UD Prescribed by: ABDIRAHMAN RICHARDS on 02/22/21 1551 Cephalexin (Cephalexin) 500 Mg Tablet, 1,000 MG PO BID Prescribed by: ROSALINO DUQUE on 07/15/20 1419 Cholecalciferol (Vitamin D3) (Vitamin D3) 125 Mcg Tablet, 250 MCG PO DAILY, (Reported) Entered as Reported by: CLAKR BOYD on 05/14/20 1433 Clonidine HCl (Clonidine HCl) 0.1 Mg Tablet, 0.1 MG PO QID, (Reported) Entered as Reported by: CLARK BOYD on 05/14/20 1433 Cyanocobalamin (Vitamin B-12) (B-12) 500 Mcg Tablet, 1,000 MCG PO BID, (Reported) Entered as Reported by: CLARK BOYD on 05/14/20 143 Cyclobenzaprine HCl (Cyclobenzaprine HCl) 10 Mg Tablet, 10 MG PO DAILY PRN for MUSCLE SPASMS, (Reported) Entered as Reported by: CLARK BOYD on 05/14/20 1433 Furosemide (Furosemide) 20 Mg Tablet, 20 MG PO BID, (Reported) Entered as Reported by: CLARK BOYD on 05/14/20 143 Gabapentin (Gabapentin) 800 Mg Tablet, 800 MG PO TID, (Reported) Entered as Reported by: CLARK BOYD on 05/14/20 143 Guaifenesin (Mucinex) 1,200 Mg Tab.er.12h, 1,200 MG PO Q12H Prescribed by: SATISH WAYNE on 02/26/21 1128 Hydrocodone/Acetaminophen (Hydrocodone-Acetamin 5-325 mg) 1 Each Tablet, 1 TAB PO Q8H PRN for Chest Wall Pain Prescribed by: SATISH WAYNE on 02/26/21 1129 Insulin Determir (Levemir) 1,000 Units/10 Ml Soln, 10 UNITS SQ HS Prescribed by: PERFECTO JOEL on 05/16/20 1146 Insulin Lispro (Insulin Lispro) 100 Unit/1 Ml Vial, SQ QIDACHS, (Reported) Entered as Reported by: CLARK BOYD on 05/14/20 143 Lisinopril (Lisinopril) 40 Mg Tablet, 40 MG PO DAILY, (Reported) Entered as Reported by: CLARK BOYD on 05/14/20 143 Methylphenidate HCl (Methylphenidate HCl) 5 Mg Tablet, 5 MG PO BID, (Reported) Entered as Reported by: CLARK BOYD on 05/14/20 143 Methylphenidate HCl (Methylphenidate HCl) 10 Mg Tablet, 10 MG PO BID, (Reported) Entered as Reported by: CLARK BOYD on 05/14/20 143 Metoprolol Succinate (Metoprolol Succinate) 100 Mg Tab.er.24h, 100 MG PO DAILY Prescribed by: PERFECTO JOEL on 05/16/20 1146 [place] 3 Polyunsat Fatty Acids (Fish Oil 1,000 mg Capsule) 1,000 Mg Cap, 1,000 MG PO BID, (Reported) Entered as Reported by: CLARK BOYD on 05/14/20 1433 Potassium Chloride (Potassium Chloride) 20 Meq Tablet.er, 20 MEQ PO BID, (Reported) Entered as Reported by: CLARK BOYD on 05/14/20 1433 Prednisone (Prednisone) 20 Mg Tab, 40 MG PO DAILY Prescribed by: ABDIRAHMAN RICHARDS on 02/22/21 1551 Quetiapine Fumarate (Quetiapine Fumarate) 25 Mg Tablet, 50 MG PO HS, (Reported) Entered as Reported by: CLARK BOYD on 05/14/20 1433 Sertraline HCl (Sertraline HCl) 100 Mg Tablet, 100 MG PO DAILY, (Reported) Entered as Reported by: CLARK BOYD on 05/14/20 1433 Simvastatin (Simvastatin) 40 Mg Tablet, 40 MG PO HS, (Reported) Entered as Reported by: CLARK BOYD on 05/14/20 1433 Trazodone HCl (Trazodone HCl) 150 Mg Tablet, 150 MG PO HS, (Reported) Entered as Reported by: CLARK BOYD on 05/14/20 1433 Review of Systems Review of Systems Constitutional: see HPI EENTM: see HPI Respiratory: see HPI Cardiovascular: see HPI Gastrointestinal: see HPI Genitourinary: see HPI Musculoskeletal: see HPI Skin: see HPI Psychiatric/Neurological: See HPI Hematologic/Lymphatic: See HPI Immunological/Allergic: see HPI (ABDIRAHMAN RICHARDS DO) All Other Systems Reviewed Negative Unless Noted: Yes (ABDIRAHMAN RICHARDS DO) Past Ehjyunu-Zqarfm-Rjncsr Hx Patient Social History Tobacco Use?: Yes (ABDIRAHMAN RICHARDS DO) Immunizations Up To Date Tetanus Booster (TDap): Unknown PED Vaccines UTD: Yes First/Initial COVID19 Vaccinat: n/a Second COVID19 Vaccination Venkatesh: n/a Third COVID19 Vaccination Date: n/a (ABDIRAHMAN RICHARDS DO) Seasonal Allergies Seasonal Allergies: No (ABDIRAHMAN RICHARDS DO) Past Medical History Surgery/Hospitalization HX: dialysis, DM Surgeries: Yes (BILAT ING HERNIA, ESS, ) Abdominal, Adenoidectomy, Appendectomy, Tonsillectomy Respiratory: No Chronic Bronchitis Currently Using CPAP: No Currently Using BIPAP: No Cardiac: Yes (BP MEDICATIONS IN THE PAST-NOT CURRENTLY) Hypertension Neurological: Yes Neuropathy, Seizure Disorder, Stroke Genitourinary: Yes Kidney Stones Gastrointestinal: No (HX OF PANCREATISIS) Pancreatitis Musculoskeletal: Yes Arthritis Endocrine: Yes (HAS AN INSULIN PUMP) Diabetes, Insulin dep HEENT: Yes (LEFT EYE SCLERITIS, RIGHT LOSS PERIPHERALVISION AND DEPTH PERCEPTION) Loss of Vision: Right Hearing Impairment: Denies Cancer: No Psychosocial: Yes Sleep Difficulties, Anxiety, Depression Integumentary: No Blood Disorders: No (ABDIRAHMAN RICHARDS DO) Family Medical History Colon cancer MATERNAL GRANDFATHER Completed stroke 19 FATHER Deafness or hearing loss 19 FATHER Diabetes mellitus 19 MOTHER (MOM, BROTHER, AUNTS) Gastroenteritis 19 MOTHER Hypercholesterolemia 19 FATHER Hypertension 19 FATHER 19 MOTHER Neoplasm PATERNAL GRANDFATHER (STOMACH) MATERNAL GRANDFATHER (COLON) Psychosocial problem 19 MOTHER Seizure disorder 19 FATHER No Pertinent Family Hx (ABDIRAHMAN RICHARDS DO) Physical Exam Vital Signs - First Documented 03/26/21 03/26/21 22:45 22:56 Temp 36.9 Pulse 122 Resp 20 B/P (MAP) 165/95 (118) Pulse Ox 92 O2 Delivery Room Air O2 Flow Rate 6.00 (SATISH WAYNE MD) Capillary Refill : (ABDIRAHMAN IRCHARDS DO) Height: 5'10.00" Weight: 185lbs. 2.0oz. 83.623985yh; 28.00 BMI Method: General Appearance: no apparent distress Eyes: Bilateral Eye Normal Inspection, Bilateral Eye PERRL, Bilateral Eye EOMI HEENT: PERRL/EOMI, normal ENT inspection Respiratory: decreased breath sounds, rhonchi Cardiovascular: regular rate, rhythm Gastrointestinal: non tender, soft Neurologic/Psychiatric: alert, oriented x 3 (ABDIRAHMAN RICHARDS DO) Focused Exam Sepsis Stage: Ruled Out (ABDIRAHMAN RICHARDS DO) Procedures/Interventions Date of ETT Placement: Mar 02, 2019 Time of ETT Placement: 319 (ABDIRAHMAN RICHARDS DO) Progress/Results/Core Measures Suspected Sepsis SIRS Temperature: Pulse: Respiratory Rate: Laboratory Tests 03/26/21 22:35: White Blood Count 9.8 Blood Pressure / Mean: Laboratory Tests 03/26/21 22:35: Creatinine 5.35H, Platelet Count 378, Total Bilirubin 0.2 (ABDIRAHMAN RICHARDS DO) Results/Orders Lab Results Laboratory Tests Test 03/26/21 22:35 03/26/21 22:55 Range/Units White Blood Count 9.8 4.3-11.0 10^3/uL Red Blood Count 2.81 L 4.30-5.52 10^6/uL Hemoglobin 8.6 L 13.3-17.7 g/dL Hematocrit 26 L 40-54 % Mean Corpuscular Volume 91 80-99 fL Mean Corpuscular Hemoglobin 31 25-34 pg Mean Corpuscular Hemoglobin Concent 34 32-36 g/dL Red Cell Distribution Width 14.8 H 10.0-14.5 % Platelet Count 378 130-400 10^3/uL Mean Platelet Volume 8.8 L 9.0-12.2 fL Immature Granulocyte % (Auto) 1 % Neutrophils (%) (Auto) 75 42-75 % Lymphocytes (%) (Auto) 10 L 12-44 % Monocytes (%) (Auto) 10 0-12 % Eosinophils (%) (Auto) 5 0-10 % Basophils (%) (Auto) 0 0-10 % Neutrophils # (Auto) 7.3 1.8-7.8 X 10^3 Lymphocytes # (Auto) 0.9 L 1.0-4.0 X 10^3 Monocytes # (Auto) 0.9 0.0-1.0 X 10^3 Eosinophils # (Auto) 0.5 H 0.0-0.3 10^3/uL Basophils # (Auto) 0.0 0.0-0.1 10^3/uL Immature Granulocyte # (Auto) 0.1 0.0-0.1 10^3/uL Sodium Level 139 135-145 MMOL/L Potassium Level 4.1 3.6-5.0 MMOL/L Chloride Level 101 98-107 MMOL/L Carbon Dioxide Level 23 21-32 MMOL/L Anion Gap 15 H 5-14 MMOL/L Blood Urea Nitrogen 38 H 7-18 MG/DL Creatinine 5.35 H 0.60-1.30 MG/DL Estimat Glomerular Filtration Rate 13 BUN/Creatinine Ratio 7 Glucose Level 190 H 70-105 MG/DL Calcium Level 7.9 L 8.5-10.1 MG/DL Corrected Calcium 8.9 8.5-10.1 MG/DL Total Bilirubin 0.2 0.1-1.0 MG/DL Aspartate Amino Transf (AST/SGOT) 13 5-34 U/L Alanine Aminotransferase (ALT/SGPT) 6 0-55 U/L Alkaline Phosphatase 67 40-136 U/L Troponin I < 0.30 <0.30 NG/ML Pro-B-Type Natriuretic Peptide 58923.0 H <75.0 PG/ML Total Protein 6.5 6.4-8.2 GM/DL Albumin 2.8 L 3.2-4.5 GM/DL Blood Gas Puncture Site LEFT RADIAL Blood Gas Patient Temperature 36.9 Arterial Blood pH 7.49 H 7.37-7.43 Arterial Blood Partial Pressure CO2 33 L 35-45 MMHG Arterial Blood Partial Pressure O2 28 *L 79-93 MMHG Arterial Blood HCO3 25 23-27 MMOL/L Arterial Blood Total CO2 26.1 21.0-31.0 MMOL/L Arterial Blood Oxygen Saturation 60 L 94-100 % Arterial Blood Base Excess 2.1 -2.5-2.5 MMOL/L Prabhakar Test POSITIVE Blood Gas Ventilator Setting NO Blood Gas Inspired Oxygen RA (SATISH WAYNE MD) Medications Given in ED Current Medications Medications Dose Ordered Sig/Ruperto Route Start Time Stop Time Status Last Admin Dose Admin Acetaminophen 1,000 mg ONCE ONCE PO 03/27/21 08:30 03/27/21 08:31 DC 03/27/21 08:30 1,000 MG Furosemide 80 mg ONCE ONCE IVP 03/27/21 01:30 03/27/21 01:31 DC 03/27/21 01:44 80 MG (SATISH WAYNE MD) Vital Signs/I&O 03/26/21 03/26/21 03/26/21 03/26/21 22:45 22:45 22:56 23:30 Temp 36.9 Pulse 122 121 Resp 20 20 B/P (MAP) 165/95 (118) 137/80 Pulse Ox 92 93 O2 Delivery Room Air Room Air Nasal Cannula Nasal Cannula O2 Flow Rate 6.00 6.00 03/27/21 03/27/21 03/27/21 03/27/21 00:00 00:30 01:00 01:30 Pulse 123 124 122 125 Resp 22 20 20 20 B/P (MAP) 135/81 126/78 165/96 162/96 Pulse Ox 92 93 96 98 O2 Delivery Nasal Cannula Nasal Cannula Nasal Cannula Nasal Cannula O2 Flow Rate 6.00 6.00 6.00 6.00 03/27/21 03/27/21 03/27/2103/27/22 02:00 02:30 03:01 04:00 Pulse 118 116 115 111 Resp 18 18 22 B/P (MAP) 155/91 147/92 137/78 137/80 Pulse Ox 93 92 96 96 O2 Delivery Nasal Cannula Nasal Cannula Nasal Cannula Nasal Cannula O2 Flow Rate 5.00 5.00 5.00 5.00 03/27/21 03/27/21 03/27/21 05:00 06:03 10:24 Pulse 108 110 82 Resp 20 20 20 B/P (MAP) 138/90 145/92 Pulse Ox 96 95 94 O2 Delivery Nasal Cannula Nasal Cannula Nasal Cannula O2 Flow Rate 5.00 5.00 6.00 (SATISH WAYNE MD) Vital Signs/I&O Capillary Refill : (ABDIRAHMAN RICHARDS DO) Progress Note #1: Progress Note 0700 on 27 Mar 2021 - I assumed care of the patient from Dr. Richards at shift change. Patient remains stable on oxygen at 5 Lpm to maintain sats greater than 90%. He is awaiting bed placement at a facility that would have dialysis to help with his fluid overload and pulmonary vascular congestion. [facility] Bed Placement service is looking for a hospital for the patient to be transferred. On room air he had oxygen saturations in the 70s and his pO2 on his room air ABG was 28. He had been given Lasix as well but does not produce any significant amount of urine so this has not resolved his pulmonary vascular congestion and fluid overload. Continue with supportive care with oxygen and looking for bed placement. Progress Note #2: Time: 08:34 Progress Note Dialysis center in [place] was contacted to see if there was possibility of having pt come to get dialysis today. They do have a bed open at 11 am that would allow him to get dialyzed yet today. They only have an emergency concentrator so they did request that he have oxygen arrangements for portable and home. The nurse practitioner at Dialysis can assess him there after he dialyzes and see if he needs additional dialysis prior to Fridays scheduled dialysis. [facility] was contacted and an order was sent to them for portable and home oxygen. Advised that we would need the portable oxygen for him brought to the ED so that he could have it available by 10 am so he could use it for transport to [place], [place] to get his dialysis. Patient and his were updated about the plan and his was agreeable to c ome and pick him up and take him for dialysis to be done at 11 am today. His electrolytes have been ok but with his fluid overload he needs dialysis to help with his breathing and oxygenation. Have him continue to follow up with pcp and nephrology for chronic care and determine length of need for his Oxygen. He did state he had a headache so a dose of acetaminophen was provided for that. Progress Note #3: Time: 10:00 Progress Note Patient remained stable during the rest of the morning here and [facility] was able to provide oxygen for portable and home use. He was able to be discharged with his and had an oxygen tank from [facility] to get him to [place] for Dialysis. Advised to use O2 at 6 Lpm and try to titrate down to 2 Lpm after dialysis. Work with pcp for continued Oxygen for home. (SATISH WAYNE MD) Diagnostic Imaging Diagonstic Imaging: Xray Plain Films/CT/US/NM/MRI: chest Comments [facility] [place] [place] NAME: [facility] REC#: [id number] PT STATUS: REG ER : 1975 PHYSICIAN: ABDIRAHMAN RICHARDS DO ADMIT DATE: 03/26/21/ER FS Draft Date of Exam:03/26/21 CHEST 1 VIEW AP/PA ONLY INDICATION: Dyspnea Portable AP view of the chest is obtained with comparison made to the study of 02/27/2021. Similar to the previous study, there is cardiomegaly with extensive bilateral airspace disease. There is more rounded airspace disease projected over the lower right hemithorax. Otherwise, there is no significant change. IMPRESSION: Extensive bilateral airspace disease may represent edema although superimposed pneumonia particularly in the right lung base cannot be excluded. Dictated on workstation # [id number] Dict: 03/27/21 0641 Trans: 03/27/21 0645 NORIS [id number] Interpreted by: MICHAEL HELMS MD Electronically signed by: Diagonstic Imaging: CT Plain Films/CT/US/NM/MRI: chest Comments [facility] [place] [place] NAME: S[facility] REC#: [id number] PT STATUS: REG ER : 1975 PHYSICIAN: ABDIRAHMAN RICHARDS DO ADMIT DATE: 03/26/21/ER FS Draft Date of Exam:03/27/21 CT ANGIO CHEST W PROCEDURE: CT angiography of the chest with contrast. TECHNIQUE: Multiple contiguous axial images were obtained through the chest after uneventful bolus administration of intravenous contrast. 3D reconstructed CTA MIP acquisitions were also performed. Auto Exposure Controls were utilized during the CT exam to meet ALARA standards for radiation dose reduction. INDICATION: Dyspnea in patient with high risk for pulmonary embolism. FINDINGS: There is good opacification of pulmonary arteries, however there is respiratory motion which limits evaluation. No definite filling defect is identified. Thoracic aorta is of normal caliber. There are moderate pleural effusions with extensive mixed groundglass and airspace disease throughout the lungs bilaterally. There are prominent lymph nodes in the mediastinum. IMPRESSION: No CTA evidence of pulmonary embolism, however extensive bilateral pulmonary opacities are present which may be due to edema, pneumonitis or atypical pneumonia. This is associated with moderate bilateral pleural fluid and [id number] mediastinal adenopathy. Dictated on workstation # [id number] Dict: 03/27/21 0605 Trans: 03/27/21 0611 [id number] Interpreted by: MICHAEL HELMS MD Electronically signed by: (SATISH WAYNE MD) Departure Communication (Admissions) EKG: Sinus tach, rate 121, specific ST-T wave changes. Prolonged QT interval, Chest x-ray: Bilateral pulmonary opacities. CTA chest: Pulmonary edema with cardiomegaly, no PE noted to be present Patient with acute respiratory failure with hypoxia requiring oxygenation and inpatient dialysis. Patient in pulmonary edema secondary to volume overload. IV Lasix given. Multiple [facility], [facility] and [facility] were contacted all of which declined the patient due to lack of capacity. Assistance with patient placement requested with [facility]. Patient remained stable on oxygen in the emergency department with disposition pending. (ABDIRAHMAN RICHARDS DO) Impression Primary Impression: Acute respiratory failure with hypoxia Additional Impressions: Volume overload Qualified Codes: E87.79 - Other fluid overload End stage renal disease on dialysis Hypoxemia Disposition: HOME, SELF-CARE Condition: Stable Departure-Patient Inst. Decision time for Depature: 08:56 (SATISH WAYNE MD) Referrals: FANY WALTER APRN (PCP) Primary Care Physician [facility] (Family) Primary Care Physician Patient Instructions: Dialysis and Diet, End Stage Kidney Disease (DC), Oxygen Therapy, Adult (DC) Add. Discharge Instructions: Use the oxygen to help keep your oxygen saturations above 90%. For today with dialysis continue at 6 Liters per minute. After Dialysis you should be able to decrease to 2 Liters per minute and might be able to even use the oxygen only with activity or sleeping. Follow up with the clinic and your nephrology doctors about your dialysis and home oxygen use. If you continue to have shortness of breath and more difficulty breathing despite dialysis and home oxygen use then you may want to get repeat evaluation with your project administrative assistant or primary care as they may need to also see a lung doctor or leather splitter for continued trouble breathing or the kidney doctor may need to adjust how much fluid they remove with your dialysis. All discharge instructions reviewed with patient and/or family. Voiced understanding. ABDIRAHMAN RIHCARDS DO Mar 27, 2021 00:17 SATISH WAYNE MD Mar 27, 2021 07:33
[2021-03-27] MEDS ORDERED: FUROSEMIDE 40 MG/4 ML INJ (LASIX) IVP ONE (01:30)
--- NOTE | 2021-03-27 06:12 | Diagnostic Imaging Report ---
PROCEDURE: CT angiography of the chest with contrast. TECHNIQUE: Multiple contiguous axial images were obtained through the chest after uneventful bolus administration of intravenous contrast. 3D reconstructed CTA MIP acquisitions were also performed. Auto Exposure Controls were utilized during the CT exam to meet ALARA standards for radiation dose reduction. INDICATION: Dyspnea in patient with high risk for pulmonary embolism. FINDINGS: There is good opacification of pulmonary arteries, however there is respiratory motion which limits evaluation. No definite filling defect is identified. Thoracic aorta is of normal caliber. There are moderate pleural effusions with extensive mixed groundglass and airspace disease throughout the lungs bilaterally. There are prominent lymph nodes in the mediastinum. IMPRESSION: No CTA evidence of pulmonary embolism, however extensive bilateral pulmonary opacities are present which may be due to edema, pneumonitis or atypical pneumonia. This is associated with moderate bilateral pleural fluid and [id number] mediastinal adenopathy. Dictated by: Dictated on workstation # [id number]
--- NOTE | 2021-03-27 06:45 | Diagnostic Imaging Report ---
INDICATION: Dyspnea Portable AP view of the chest is obtained with comparison made to the study of 02/27/2021. Similar to the previous study, there is cardiomegaly with extensive bilateral airspace disease. There is more rounded airspace disease projected over the lower right hemithorax. Otherwise, there is no significant change. IMPRESSION: Extensive bilateral airspace disease may represent edema although superimposed pneumonia particularly in the right lung base cannot be excluded. Dictated by: Dictated on workstation # [id number]
[2021-03-27] MEDS ORDERED: ACETAMINOPHEN 500 MG TAB (TYLENOL) PO ONE (08:30)
[2021-03-27 10:24] VITALS: BP 145/92
== END 2021-03-27 10:24 | disposition home or self-care (01) ==
LOC: EDUNIT# 22:07 → ER FS 22:08
DX: J96.01 Acute respiratory failure with hypoxia (principal); E87.79 Other fluid overload; I12.0 Hypertensive chronic kidney disease with stage 5 chronic kidney disease or end stage renal disease; E11.22 Type 2 diabetes mellitus with diabetic chronic kidney disease; N18.6 End stage renal disease; G40.909 Epilepsy, unspecified, not intractable, without status epilepticus; F41.9 Anxiety disorder, unspecified; F32.9 Major depressive disorder, single episode, unspecified; Z72.0 Tobacco use; Z86.73 Personal history of transient ischemic attack (TIA), and cerebral infarction without residual deficits; Z79.4 Long term (current) use of insulin; Z79.82 Long term (current) use of aspirin; Z79.899 Other long term (current) drug therapy
CPT/HCPCS: 36415; 71045; 71275; 80053; 82805; 83880; 84484; 85025; 93005

== ENCOUNTER → 2022-02-20 | Outpatient (CLI) | payer MEDICARE, OTHER ==
[~2022-02-20] MED LIST changes: +ALBU6.7H13 INH; -ALBU6.7H8 INH; -ASPI-789 PO; +ASPI1TAB23 PO
--- NOTE | 2022-02-20 11:49 | Diagnostic Imaging Report ---
INDICATION: Abdominal pain PROCEDURE: Ultrasound abdomen complete. TECHNIQUE: Multiple real-time grayscale images were obtained of the abdomen in various projections. Comparison with CT scan of 07/15/2020. FINDINGS: There is hepatosplenomegaly with fatty change of the liver. The gallbladder is contracted. Bile ducts are not dilated. Common duct is 5 mm. Pancreas does show some calcification consistent with chronic pancreatitis. Spleen measures 14 cm. Aorta is 2.5 cm. Vena cava and portal vein appear normal with Doppler sampling. Right kidney measures 9 x 7.4 x 4.9 cm. The left kidney measures 10 x 4.4 x 4.3 cm. No hydronephrosis or calculi are demonstrated. IMPRESSION: 1. Hepatosplenomegaly with probable portal hypertension. 2. Some calcifications noted within the pancreas. Dictated by: Dictated on workstation # [id number]
== END ==
LOC: RAD FS 10:26
PROVIDERS: ATTEND Internal Medicine Nephrology
DX: R16.2 Hepatomegaly with splenomegaly, not elsewhere classified (principal); K86.89 Other specified diseases of pancreas
CPT/HCPCS: 76700

== ENCOUNTER 2022-02-23 17:38 | Emergency (ER) | payer MEDICARE, OTHER ==
[2022-02-23] MEDS ORDERED: morphine INJ 10 MG/ML 1ML (SYR OR VIAL) IVP STA (17:49)
[2022-02-23] MEDS ORDERED: meTOprolol 5 MG/5 ML (LOPRESSOR) VIAL IV STA (17:49)
[2022-02-23] MEDS ORDERED: ONDANSETRON 4 MG/2 ML (SDV) Z0FRAN IVP STA (17:49)
[2022-02-23 17:55] LABS: BASOPHILS % (AUTO) 0 % (0-10); EOSINOPHILS # (AUTO) 0.3 10^3/uL (0.0-0.3); EOSINOPHILS % (AUTO) 2 % (0-10); HEMATOCRIT 35 % (40-54); HEMOGLOBIN 12.1 g/dL (13.3-17.7); LYMPHOCYTES # (AUTO) 0.7 10^3/uL (1.0-4.0); LYMPHOCYTES % (AUTO) 6 % (12-44); MEAN CORPUSCULAR HEMOGLOBIN 31 pg (25-34); MEAN CORPUSCULAR HGB CONC 34 g/dL (32-36); MEAN CORPUSCULAR VOLUME 91 fL (80-99); MEAN PLATELET VOLUME 9.2 fL (9.0-12.2); MONOCYTES % (AUTO) 9 % (0-12); NEUTROPHILS # (AUTO) 9.8 10^3/uL (1.8-7.8); NEUTROPHILS % (AUTO) 82 % (42-75); PLATELET COUNT 152 10^3/uL (130-400)
--- NOTE | 2022-02-23 17:55 | ED Chest Pain ---
General Chief Complaint: Chest Pain Stated Complaint: CHEST PAIN; N/V; DIARRHEA; FEVER Source: patient History of Present Illness Date Seen by Provider: Feb 23, 2022 Time Seen by Provider: 17:39 Initial Comments 46-year-old male presenting with complaints of right-sided chest pain that can be worse with movement. He states the pain started around 1 PM. He also had felt like his temperature was elevated as he normally is 94 to 96 degrees. He states that he is prone to getting sepsis with his diabetes and kidney failure. He did have nausea and no vomiting. He had diarrhea today which was not unusual for him but he felt like it was painful when he had the diarrhea. He is doing peritoneal dialysis at home currently. He denies any ill contacts. He states that he was seen at the [place] [facility] Thursday and they did a swab of his dialysis catheter in chest and started him on doxycycline for cellulitis at site of catheter. Timing/Duration: 4-6 hours Severity/Quality: moderate, pressure, sharp Location: other (right side of chest) Radiation: no radiation Activities at Onset: none Prior CP/Workup: non-cardiac, other (pleurisy from "heart rubbing against chest") Modifying Factors: worse with movement ASA po DENTAL SURGERY DOCTOR: No NTG SL DENTAL SURGERY DOCTOR: No Associated Symptoms: No abdominal pain, No back pain, No diaphoresis, No dizziness, No edema, No fatigue; fever/chills (felt he had a fever), nausea/vomiting (nausea but no vomiting); No rash, No shortness of breath, No swelling/lump in chest, No syncope, No weakness Allergies and Home Medications Allergies Coded Allergies: clindamycin (Verified Allergy, Unknown, 05/12/20) Patient Home Medication List Home Medication List Reviewed: Yes Albuterol Sulfate (Proventil Hfa) 6.7 Gm Hfa.aer.ad, 6.7 GM INH Q4H PRN for DYSPNEA Prescribed by: ABDIRAHMAN BRANDON on 02/22/21 1551 Amlodipine Besylate (Amlodipine Besylate) 5 Mg Tablet, 5 MG PO DAILY Prescribed by: PERFECTO JOEL on 05/16/20 1146 Aspirin (Aspirin) 81 Mg Tab.chew, 81 MG PO DAILY, (Reported) Entered as Reported by: CLARK BOYD on 05/14/20 1433 Azithromycin (Zithromax) 250 Mg Tablet, 250 MG PO UD Prescribed by: ABDIRAHMAN BRANDON on 02/22/21 1551 Cephalexin (Cephalexin) 500 Mg Tablet, 1,000 MG PO BID Prescribed by: ROSALINO DUQUE on 07/15/20 1419 Cholecalciferol (Vitamin D3) (Vitamin D3) 125 Mcg Tablet, 250 MCG PO DAILY, (Reported) Entered as Reported by: CLARK BOYD on 05/14/20 1433 Clonidine HCl (Clonidine HCl) 0.1 Mg Tablet, 0.1 MG PO QID, (Reported) Entered as Reported by: CLARK BOYD on 05/14/20 1433 Cyanocobalamin (Vitamin B-12) (B-12) 500 Mcg Tablet, 1,000 MCG PO BID, (Reported) Entered as Reported by: CLARK BOYD on 05/14/20 1433 Cyclobenzaprine HCl (Cyclobenzaprine HCl) 10 Mg Tablet, 10 MG PO DAILY PRN for MUSCLE SPASMS, (Reported) Entered as Reported by: CLARK BOYD on 05/14/20 1433 Furosemide (Furosemide) 20 Mg Tablet, 20 MG PO BID, (Reported) Entered as Reported by: CLARK BOYD on 05/14/20 1433 Gabapentin (Gabapentin) 800 Mg Tablet, 800 MG PO TID, (Reported) Entered as Reported by: CLARK BOYD on 05/14/20 1433 Guaifenesin (Mucinex) 1,200 Mg Tab.er.12h, 1,200 MG PO Q12H Prescribed by: SATISH WAYNE on 02/26/21 1128 Hydrocodone/Acetaminophen (Hydrocodone-Acetamin 5-325 mg) 1 Each Tablet, 1 TAB PO Q8H PRN for Chest Wall Pain Prescribed by: SATISH WAYNE on 02/26/21 1129 Insulin Determir (Levemir) 1,000 Units/10 Ml Soln, 10 UNITS SQ HS Prescribed by: PERFECTO JOEL on 05/16/20 1146 Insulin Lispro (Insulin Lispro) 100 Unit/1 Ml Vial, SQ QIDACHS, (Reported) Entered as Reported by: CLARK BOYD on 05/14/20 1433 Lisinopril (Lisinopril) 40 Mg Tablet, 40 MG PO DAILY, (Reported) Entered as Reported by: CLARK BOYD on 05/14/20 1433 Methylphenidate HCl (Methylphenidate HCl) 5 Mg Tablet, 5 MG PO BID, (Reported) Entered as Reported by: CLARK BOYD on 05/14/20 1433 Methylphenidate HCl (Methylphenidate HCl) 10 Mg Tablet, 10 MG PO BID, (Reported) Entered as Reported by: CLARK BOYD on 05/14/20 1433 Metoprolol Succinate (Metoprolol Succinate) 100 Mg Tab.er.24h, 100 MG PO DAILY Prescribed by: PERFECTO JOEL on 05/16/20 1146 Lewis 3 Polyunsat Fatty Acids (Fish Oil 1,000 mg Capsule) 1,000 Mg Cap, 1,000 MG PO BID, (Reported) Entered as Reported by: CLARK BOYD on 05/14/20 1433 Potassium Chloride (Potassium Chloride) 20 Meq Tablet.er, 20 MEQ PO BID, (Reported) Entered as Reported by: CLARK BOYD on 05/14/20 1433 Prednisone (Prednisone) 20 Mg Tab, 40 MG PO DAILY Prescribed by: ABDIRAHMAN BRANDON on 02/22/21 1551 Prednisone (Prednisone) 20 Mg Tab, 20 MG PO DAILY Prescribed by: SATISH WAYNE on 02/23/22 193 Quetiapine Fumarate (Quetiapine Fumarate) 25 Mg Tablet, 50 MG PO HS, (Reported) Entered as Reported by: CLARK BOYD on 05/14/20 143 Sertraline HCl (Sertraline HCl) 100 Mg Tablet, 100 MG PO DAILY, (Reported) Entered as Reported by: CLARK BOYD on 05/14/20 1433 Simvastatin (Simvastatin) 40 Mg Tablet, 40 MG PO HS, (Reported) Entered as Reported by: CLARK BOYD on 05/14/20 1433 Trazodone HCl (Trazodone HCl) 150 Mg Tablet, 150 MG PO HS, (Reported) Entered as Reported by: CLARK BOYD on 05/14/20 1433 Review of Systems Review of Systems Constitutional: No chills; fever (temp 2-3 degrees higher than his normal temp around 94-96 F) EENTM: No Nose Congestion, No Throat Pain Respiratory: Denies Cough Cardiovascular: See HPI Gastrointestinal: See HPI Genitourinary: No Symptoms Reported Musculoskeletal: no symptoms reported Skin: change in color (mild erythema around catheter site in right chest) Psychiatric/Neurological: Anxiety Endocrine: No Symptoms Reported Past Mfcpdsm-Tuvdmm-Fqislb Hx Patient Social History Tobacco Use?: No Substance use?: No Alcohol Use?: No Pt feels they are or have been: No Immunizations Up To Date Tetanus Booster (TDap): Unknown PED Vaccines UTD: Yes First/Initial COVID19 Vaccinat: n/a Second COVID19 Vaccination Venkatesh: n/a Third COVID19 Vaccination Date: n/a Seasonal Allergies Seasonal Allergies: No Past Medical History Surgery/Hospitalization HX: peritoneal dialysis, DM; HTN; Depression; High Cholesterol; GERD; Neuropathy Surgeries: Yes (BILAT ING HERNIA, ESS, ) Abdominal, Adenoidectomy, Appendectomy, Tonsillectomy Respiratory: No Chronic Bronchitis Currently Using CPAP: No Currently Using BIPAP: No Cardiac: Yes (BP MEDICATIONS IN THE PAST-NOT CURRENTLY) Hypertension Neurological: Yes Neuropathy, Seizure Disorder, Stroke Genitourinary: Yes Kidney Stones Gastrointestinal: No (HX OF PANCREATISIS) Pancreatitis Musculoskeletal: Yes Arthritis Endocrine: Yes (HAS AN INSULIN PUMP) Diabetes, Insulin dep HEENT: Yes (LEFT EYE SCLERITIS, RIGHT LOSS PERIPHERALVISION AND DEPTH PERCEPTION) Loss of Vision: Right Hearing Impairment: Denies Cancer: No Psychosocial: Yes Sleep Difficulties, Anxiety, Depression Integumentary: No Blood Disorders: No Family Medical History Colon cancer MATERNAL GRANDFATHER Completed stroke 19 FATHER Deafness or hearing loss 19 FATHER Diabetes mellitus 19 MOTHER (MOM, BROTHER, AUNTS) Gastroenteritis 19 MOTHER Hypercholesterolemia 19 FATHER Hypertension 19 FATHER 19 MOTHER Neoplasm PATERNAL GRANDFATHER (STOMACH) MATERNAL GRANDFATHER (COLON) Psychosocial problem 19 MOTHER Seizure disorder 19 FATHER No Pertinent Family Hx Physical Exam Vital Signs Vital Signs - First Documented 02/23/22 17:42 Temp 36.7 Pulse 112 Resp 21 B/P (MAP) 172/102 (125) Pulse Ox 98 O2 Delivery Room Air Capillary Refill : Less Than 3 Seconds Height, Weight, BMI Height: 5'10.00" Weight: 185lbs. 2.0oz. 83.098759oq; 28.00 BMI Method: General Appearance: WD/WN, Anxious HEENT: PERRL/EOMI, Normal ENT Inspection, Pharynx Normal Neck: Full Range of Motion, Normal Inspection, Non Tender, Supple; No Carotid Bruit Respiratory: Chest Non Tender, Lungs Clear, Normal Breath Sounds, No Accessory Muscle Use, No Respiratory Distress Cardiovascular: Regular Rate, Rhythm, Normal Peripheral Pulses Gastrointestinal: Normal Bowel Sounds, No Pulsatile Mass, Non Tender, Soft, Other (peritoneal dialysis shunt in place in abdomen without erythema, tenderness) Rectal: Deferred Extremity: Normal Capillary Refill, Normal Inspection, No Pedal Edema Neurologic/Psychiatric: Alert, Oriented x3 Skin: Warm/Dry, Erythema (mild erythema to right upper chest around insertion site of dialysis catheter) Focused Exam Lactate Level 02/23/22 19:00: Lactic Acid Level 0.81 Lactic Acid Level Laboratory Tests Test 02/23/22 19:00 Lactic Acid Level 0.81 MMOL/L (0.50-2.00) Procedures/Interventions Date of ETT Placement: Mar 02, 2019 Time of ETT Placement: 319 Progress/Results/Core Measures Results/Orders Lab Results Laboratory Tests Test 02/23/22 17:45 02/23/22 17:50 02/23/22 19:00 Range/Units White Blood Count 12.0 H 4.3-11.0 10^3/uL Red Blood Count 3.90 L 4.30-5.52 10^6/uL Hemoglobin 12.1 L 13.3-17.7 g/dL Hematocrit 35 L 40-54 % Mean Corpuscular Volume 91 80-99 fL Mean Corpuscular Hemoglobin 31 25-34 pg Mean Corpuscular Hemoglobin Concent 34 32-36 g/dL Red Cell Distribution Width 15.7 H 10.0-14.5 % Platelet Count 152 130-400 10^3/uL Mean Platelet Volume 9.2 9.0-12.2 fL Immature Granulocyte % (Auto) 0 % Neutrophils (%) (Auto) 82 H 42-75 % Lymphocytes (%) (Auto) 6 L 12-44 % Monocytes (%) (Auto) 9 0-12 % Eosinophils (%) (Auto) 2 0-10 % Basophils (%) (Auto) 0 0-10 % Neutrophils # (Auto) 9.8 H 1.8-7.8 10^3/uL Lymphocytes # (Auto) 0.7 L 1.0-4.0 10^3/uL Monocytes # (Auto) 1.0 0.0-1.0 10^3/uL Eosinophils # (Auto) 0.3 0.0-0.3 10^3/uL Basophils # (Auto) 0.0 0.0-0.1 10^3/uL Immature Granulocyte # (Auto) 0.1 0.0-0.1 10^3/uL Neutrophils % (Manual) 86 % Lymphocytes % (Manual) 6 % Monocytes % (Manual) 7 % Eosinophils % (Manual) 1 % Prothrombin Time 13.5 12.2-14.7 SEC INR Comment 1.0 0.8-1.4 Activated Partial Thromboplast Time 32 24-35 SEC Sodium Level 138 135-145 MMOL/L Potassium Level 4.3 3.6-5.0 MMOL/L Chloride Level 98 98-107 MMOL/L Carbon Dioxide Level 20 L 21-32 MMOL/L Anion Gap 20 H 5-14 MMOL/L Blood Urea Nitrogen 52 H 7-18 MG/DL Creatinine 13.36 H 0.60-1.30 MG/DL Estimat Glomerular Filtration Rate 4 BUN/Creatinine Ratio 4 Glucose Level 110 H 70-105 MG/DL Calcium Level 9.0 8.5-10.1 MG/DL Corrected Calcium 9.2 8.5-10.1 MG/DL Magnesium Level 2.1 1.6-2.4 MG/DL Total Bilirubin 0.3 0.1-1.0 MG/DL Aspartate Amino Transf (AST/SGOT) 20 5-34 U/L Alanine Aminotransferase (ALT/SGPT) 20 0-55 U/L Alkaline Phosphatase 63 40-136 U/L Troponin I < 0.30 <0.30 NG/ML Pro-B-Type Natriuretic Peptide 24346.0 H <125.0 PG/ML Total Protein 6.8 6.4-8.2 GM/DL Albumin 3.7 3.2-4.5 GM/DL Lipase 14 8-78 U/L Influenza Type A (RT-PCR) Not Detected Not Detecte Influenza Type B (RT-PCR) Not Detected Not Detecte SARS-CoV-2 RNA (RT-PCR) Not Detected Not Detecte Lactic Acid Level 0.81 0.50-2.00 MMOL/L My Orders Orders - SATISH WAYNE MD Cbc With Automated Diff (02/23/22 17:49) Magnesium (02/23/22 17:49) Chest 1 View Ap/Pa Only (02/23/22 17:49) Ekg Tracing (02/23/22 17:49) Comprehensive Metabolic Panel (02/23/22 17:49) Protime With Inr (02/23/22 17:49) Partial Thromboplastin Time (02/23/22 17:49) O2 (02/23/22 17:49) Monitor-Rhythm Ecg Trace Only (02/23/22 17:49) Aspirin Chewable Tablet (Baby Aspirin Ch (02/23/22 18:00) Ed Iv/Invasive Line Start (02/23/22 17:49) Lipase (02/23/22 17:49) Troponin I Fs (02/23/22 17:49) Probnp Fs (02/23/22 17:49) Ondansetron Injection (Zofran Injectio (02/23/22 17:49) Morphine Injection (Morphine Injection (02/23/22 17:49) Metoprolol Tartrate Injection (Lopressor (02/23/22 17:49) Covid 19 Inhouse Test (02/23/22 17:49) Influenza A And B By Pcr (02/23/22 17:49) Isolation Central Supply Req (02/23/22 17:49) Manual Differential (02/23/22 17:45) Blood Culture (02/23/22 18:56) Lactic Acid Analyzer (02/23/22 18:56) Ceftriaxone 1 Gm Pre-Mix (Rocephin 1 Gm (02/23/22 18:56) Methylprednisolone Sod Succ (Solu-Medrol (02/23/22 18:56) Medications Given in ED Current Medications Medications Dose Ordered Sig/Ruperto Route Start Time Stop Time Status Last Admin Dose Admin Aspirin 324 mg ONCE ONCE PO 02/23/22 18:00 02/23/22 18:01 DC 02/23/22 17:58 324 MG Vital Signs/I&O 02/23/22 02/23/22 02/23/22 17:42 18:35 19:32 Temp 36.7 36.7 Pulse 112 97 97 Resp 21 17 16 B/P (MAP) 172/102 (125) 138/94 (109) 152/82 Pulse Ox 98 96 97 O2 Delivery Room Air Room Air Room Air Progress Progress Note #1: Progress Note Check basic labs and electrocardiogram to look for signs of acute myocardial infarction. Chest x-ray to look for pneumonia or fluid buildup. Give morphine 2 mg IV for chest pain, Zofran 4 mg IV for nausea, aspirin 324 mg p.o. for complaint of chest pain. Differential diagnosis includes myocardial infarction, pneumonia, pleurisy, chest wall infection Progress Note #2: Progress Note Based on my independent review and interpretation of his electrocardiogram he has no acute ST elevation and it appears similar to prior tracings from March 2021. His chest x-ray does not show any acute infiltrate or effusion. CBC had mild elevation of his white blood cell count to 12. His hemoglobin was up to 12.1. Chemistry panel showed the chronic renal failure with end-stage renal disease but his troponin was less than 0.3 after having over 5 hours of pain and symptoms. His proBNP was elevated but half of what it was in March 2021. Reviewed findings and results with the patient. He stated that his symptoms were improved with treatment. He was concerned about infection since he was taking the doxycycline. He had not mentioned that until I was reviewing his results. We will add on blood cultures and a lactic acid to look for signs of sepsis and will give him a dose of Rocephin 1 g IV to help with infection. Give Solumedrol 125 mg IV x 1 to help with inflammation Progress Note #3: Progress Note Lactic acid was not elevated to indicate signs of sepsis. His symptoms were improved with treatment. Will discharge with a 3-day burst of steroids and counseled on that having a effect on his sugars. Continue with the doxycycline. Check back with his regular provider for continued concerns. Return or be seen sooner if having worsening symptoms. Initial ECG Impression Date: Feb 23, 2022 Initial ECG Impression Time: 17:43 Initial ECG Rate: 108 Initial ECG Rhythm: S.Tach Initial ECG Comparisson: Unchanged Comment Based on my personal interpretation and review of the electrocardiogram he has a sinus tachycardia with a heart rate of 108 bpm. AK interval 165 ms. There is no acute ST elevation. His QT interval was 344 ms with a QTc interval 407 ms. Overall appears similar to prior tracings from March 07 and March 26, 2021. Diagnostic Imaging Diagonstic Imaging: Xray Plain Films/CT/US/NM/MRI: chest Comments NAME: SOMMER NINA [facility] REC#: [id number] PT STATUS: REG ER : 1975 PHYSICIAN: SATISH WAYNE MD ADMIT DATE: 02/23/22/ER FS Draft Date of Exam:02/23/22 CHEST 1 VIEW AP/PA ONLY EXAMINATION: Chest 1 view HISTORY: right sided chest pain COMPARISON: 03/26/2021 FINDINGS: Heart size and pulmonary vasculature are normal. The lungs are clear without consolidation, pleural effusion, or pneumothorax. Degenerative changes of the thoracic spine. Osseous structures are otherwise intact. Right-sided central line is present with the tip projecting over the SVC. IMPRESSION: 1. No acute radiographic abnormality in the chest. Dictated on workstation # [id number] Dict: 02/23/221802 Trans: 02/23/221803 CV [id number] Interpreted by: JACKSON PATEL DO Electronically signed by: Reviewed: Reviewed by Me Departure Impression Primary Impression: Right-sided chest pain Additional Impressions: Pleuritic chest pain Cellulitis of chest wall Disposition: HOME, SELF-CARE Condition: Stable Departure-Patient Inst. Decision time for Depature: 19:28 Referrals: FANY WALTER APRN (PCP) Primary Care Physician [facility]/JU[facility] (Family) Primary Care Physician Patient Instructions: Pleuritic Chest Pain ED, Cellulitis (Skin Infection), Adult ED, Chest Pain, Adult ED Add. Discharge Instructions: Continue taking the Doxycycline for skin infection. The steroid will help with inflammation and not worsen your kidney function, but it will make your sugars run higher for next few days. Check with your regular provider for continued symptoms and if not improving. Blood cultures from today will take at least 24-48 hours to have preliminary results come back looking for signs of bacteria in the blood. If you need IV antibiotics or be seen again because of results of the cultures you will get a call. All discharge instructions reviewed with patient and/or family. Voiced understanding. Scripts Prednisone (Prednisone) 20 Mg Tab 20 MG PO DAILY for pleuritic chest pain for 3 Days, #3 TAB 0 Refills Prov: SATISH WAYNE MD 02/23/22 SATISH WAYNE MD Feb 23, 2022 17:55
[2022-02-23] MEDS ORDERED: ASPIRIN 81 MG CHEW (CHILDREN'S ASA) PO ONE (18:00)
[2022-02-23 18:01] LABS: PROTHROMBIN TIME PATIENT 13.5 SEC (12.2-14.7)
--- NOTE | 2022-02-23 18:04 | Diagnostic Imaging Report ---
EXAMINATION: Chest 1 view HISTORY: right sided chest pain COMPARISON: 03/26/2021 FINDINGS: Heart size and pulmonary vasculature are normal. The lungs are clear without consolidation, pleural effusion, or pneumothorax. Degenerative changes of the thoracic spine. Osseous structures are otherwise intact. Right-sided central line is present with the tip projecting over the SVC. IMPRESSION: 1. No acute radiographic abnormality in the chest. Dictated by: Dictated on workstation # [id number]
[2022-02-23 18:13] LABS: ALBUMIN 3.7 GM/DL (3.2-4.5); BILIRUBIN,TOTAL 0.3 MG/DL (0.1-1.0); CREATININE SERUM 13.36 MG/DL (0.60-1.30); MAGNESIUM 2.1 MG/DL (1.6-2.4); POTASSIUM 4.3 MMOL/L (3.6-5.0); TOTAL PROTEIN 6.8 GM/DL (6.4-8.2)
[2022-02-23 18:17] LABS: EOSINOPHILS % (MANUAL) 1 %; LYMPHOCYTES % (MANUAL) 6 %; MONOCYTES % (MANUAL) 7 %; NEUTROPHILS % (MANUAL) 86 %
[2022-02-23] MEDS ORDERED: cefTRIAXone 1 GM PRE-MIX 50 ML IV STA (18:56)
[2022-02-23] MEDS ORDERED: methylPREDNISolone 125 MG (Solu-MEDROL) VIAL IVP STA (18:56)
[2022-02-23] MEDS ORDERED: PRD20T PO (19:31)
[2022-02-23 19:32] VITALS: BP 152/82
== END 2022-02-23 19:46 | disposition home or self-care (01) ==
LOC: EDUNIT# 17:38 → ER FS 17:39
DX: L03.313 Cellulitis of chest wall (principal); I12.0 Hypertensive chronic kidney disease with stage 5 chronic kidney disease or end stage renal disease; E11.22 Type 2 diabetes mellitus with diabetic chronic kidney disease; N18.6 End stage renal disease; Z79.4 Long term (current) use of insulin; Z96.41 Presence of insulin pump (external) (internal); Z99.2 Dependence on renal dialysis; Z88.1 Allergy status to other antibiotic agents; Z28.310 Unvaccinated for COVID-19; Z20.822 Contact with and (suspected) exposure to COVID-19
CPT/HCPCS: 36415; 71045; 80053; 83605; 83690; 83735; 83880; 84484; 85007; 85027; 85610; 85730; 87040; 87636; 93005; 93041; 96374; 96375

== ENCOUNTER 2022-03-21 19:32 | Emergency (ER) | payer MEDICARE, OTHER ==
[~2022-03-21] VITALS: Ht 177.8 cm; Wt 87.4 kg
[2022-03-21 19:40] VITALS: BP 148/94
[2022-03-21 19:55] LABS: BILIRUBIN,URINE NEGATIVE (NEGATIVE); CLARITY,URINE CLEAR; COLOR,URINE YELLOW; GLUCOSE, URINE (UA) 1+ (NEGATIVE); KETONES,URINE NEGATIVE (NEGATIVE); LEUKOCYTE ESTERASE ,URINE NEGATIVE (NEGATIVE); NITRITE,URINE NEGATIVE (NEGATIVE); PROTEIN,URINE 3+ (NEGATIVE)
[2022-03-21 19:56] LABS: BACTERIA,URINE FEW /HPF
--- NOTE | 2022-03-21 20:18 | Diagnostic Imaging Report ---
INDICATION: Hematuria and right flank pain. Patient is on dialysis. EXAMINATION: CT abdomen and pelvis without contrast, 03/21/2022. COMPARISON: 07/15/2020 FINDINGS: Lung bases clear. Spleen appears prominent but stable from previous. Liver unremarkable. Gallbladder contracted. Pancreas and adrenal glands unremarkable. There is no nephrolithiasis or hydronephrosis on either side. No ureteral stone. Urinary bladder appears somewhat hyperdense but could be due to the appearance of the wall due to the contracted underdistention of the bladder. Hemorrhage or mass in the urinary bladder felt to be much less likely but correlation with urinalysis recommended. There is free fluid in the pelvis likely due to the history of dialysis with a catheter tip in the pelvis which enters the left mid abdomen. There are slightly thick walled distended small bowel loops seen throughout the mid and left abdomen. This could be secondary to the minimal fluid in the abdomen and pelvis versus an enteritis. Correlate with symptoms. There are postop changes in the right lower quadrant. Appendix is not seen. There is no acute osseous abnormality. IMPRESSION: 1. Free fluid in the pelvis presumably due to the history of dialysis. 2. No nephrolithiasis or hydronephrosis with abnormal appearance of the urinary bladder, possibly due to underdistention, see above discussion and correlate clinically. 3. Possible mild enteritis. 4. Stable appearing splenomegaly. Other findings as above. Dictated by: Dictated on workstation # [id number]
--- NOTE | 2022-03-21 20:19 | ED GU-Female ---
General Chief Complaint: - Reproductive Stated Complaint: UNRINATING BLOOD Nursing Triage Note: Patient reports he had blood in his urine today, states he has lower back pain and feels like his bladder is full. He reports he does peritoneal dialysis. Source: patient Exam Limitations: no limitations History of Present Illness Date Seen by Provider: Mar 21, 2022 Time Seen by Provider: 19:45 Initial Comments Patient is a 46-year-old peritoneal dialysis patient who presents with intermittent right lower flank pain for the past 1 to 2 days with hematuria noted earlier today. He denies nausea fever chills or sweats. No dizziness lightheadedness chest pain, shortness of breath. Patient is not on anticoagulation therapy. No other symptoms or complaints. Timing/Duration: other Severity/Quality: other Location: other Radiation: other Activities at Onset: other Sexual [place] History: other Modifying Factors: Improves With Other Associated Symptoms: other Allergies and Home Medications Allergies Coded Allergies: clindamycin (Verified Allergy, Unknown, 05/12/20) Patient Home Medication List Home Medication List Reviewed: Yes Albuterol Sulfate (Proventil Hfa) 6.7 Gm Hfa.aer.ad, 6.7 GM INH Q4H PRN for DYSPNEA Prescribed by: ABDIRAHMAN BRANDON on 02/22/21 1551 Amlodipine Besylate (Amlodipine Besylate) 5 Mg Tablet, 5 MG PO DAILY Prescribed by: PERFECTO JOEL on 05/16/20 1146 Aspirin (Aspirin) 81 Mg Tab.chew, 81 MG PO DAILY, (Reported) Entered as Reported by: CLARK BOYD on 05/14/20 1433 Azithromycin (Zithromax) 250 Mg Tablet, 250 MG PO UD Prescribed by: ABDIRAHMAN BRANDON on 02/22/21 1551 Cephalexin (Cephalexin) 500 Mg Tablet, 1,000 MG PO BID Prescribed by: ROSALINO DUQUE on 07/15/20 1419 Cholecalciferol (Vitamin D3) (Vitamin D3) 125 Mcg Tablet, 250 MCG PO DAILY, (Reported) Entered as Reported by: CLARK BOYD on 05/14/20 1433 Clonidine HCl (Clonidine HCl) 0.1 Mg Tablet, 0.1 MG PO QID, (Reported) Entered as Reported by: CLARK BOYD on 05/14/20 1433 Cyanocobalamin (Vitamin B-12) (B-12) 500 Mcg Tablet, 1,000 MCG PO BID, (Reported) Entered as Reported by: CLARK BOYD on 05/14/20 143 Cyclobenzaprine HCl (Cyclobenzaprine HCl) 10 Mg Tablet, 10 MG PO DAILY PRN for MUSCLE SPASMS, (Reported) Entered as Reported by: CLARK BOYD on 05/14/20 143 Furosemide (Furosemide) 20 Mg Tablet, 20 MG PO BID, (Reported) Entered as Reported by: CLARK BOYD on 05/14/20 143 Gabapentin (Gabapentin) 800 Mg Tablet, 800 MG PO TID, (Reported) Entered as Reported by: CLARK BOYD on 05/14/20 143 Guaifenesin (Mucinex) 1,200 Mg Tab.er.12h, 1,200 MG PO Q12H Prescribed by: SATISH WAYNE on 02/26/21 1128 Hydrocodone/Acetaminophen (Hydrocodone-Acetamin 5-325 mg) 1 Each Tablet, 1 TAB PO Q8H PRN for Chest Wall Pain Prescribed by: SATISH WAYNE on 02/26/21 1129 Insulin Determir (Levemir) 1,000 Units/10 Ml Soln, 10 UNITS SQ HS Prescribed by: PERFECTO JOEL on 05/16/20 1146 Insulin Lispro (Insulin Lispro) 100 Unit/1 Ml Vial, SQ QIDACHS, (Reported) Entered as Reported by: CLARK BOYD on 05/14/20 143 Lisinopril (Lisinopril) 40 Mg Tablet, 40 MG PO DAILY, (Reported) Entered as Reported by: CLARK BOYD on 05/14/20 143 Methylphenidate HCl (Methylphenidate HCl) 5 Mg Tablet, 5 MG PO BID, (Reported) Entered as Reported by: CLARK BOYD on 05/14/20 143 Methylphenidate HCl (Methylphenidate HCl) 10 Mg Tablet, 10 MG PO BID, (Reported) Entered as Reported by: CLARK BOYD on 05/14/20 143 Metoprolol Succinate (Metoprolol Succinate) 100 Mg Tab.er.24h, 100 MG PO DAILY Prescribed by: PERFECTO JOEL on 05/16/20 1146 [place] 3 Polyunsat Fatty Acids (Fish Oil 1,000 mg Capsule) 1,000 Mg Cap, 1,000 MG PO BID, (Reported) Entered as Reported by: CLARK BOYD on 05/14/20 1433 Potassium Chloride (Potassium Chloride) 20 Meq Tablet.er, 20 MEQ PO BID, (Report ed) Entered as Reported by: CLARK BOYD on 05/14/20 143 Prednisone (Prednisone) 20 Mg Tab, 40 MG PO DAILY Prescribed by: ABDIRAHMAN BRANDON on 02/22/21 1551 Prednisone (Prednisone) 20 Mg Tab, 20 MG PO DAILY Prescribed by: SATISH WAYNE on 02/23/22 193 Quetiapine Fumarate (Quetiapine Fumarate) 25 Mg Tablet, 50 MG PO HS, (Reported) Entered as Reported by: CLARK BOYD on 05/14/20 1433 Sertraline HCl (Sertraline HCl) 100 Mg Tablet, 100 MG PO DAILY, (Reported) Entered as Reported by: CLARK BOYD on 05/14/20 143 Simvastatin (Simvastatin) 40 Mg Tablet, 40 MG PO HS, (Reported) Entered as Reported by: CLARK BOYD on 05/14/20 143 Trazodone HCl (Trazodone HCl) 150 Mg Tablet, 150 MG PO HS, (Reported) Entered as Reported by: CLARK BOYD on 05/14/20 143 Review of Systems Review of Systems Constitutional: see HPI EENTM: see HPI Respiratory: see HPI Cardiovascular: see HPI Gastrointestinal: see HPI Musculoskeletal: see HPI Skin: see HPI Psychiatric/Neurological: See HPI Endocrine: See HPI Hematologic/Lymphatic: See HPI All Other Systemes Reviewed Negative Unless Noted: No Past Ivgcvoc-Pjdyes-Cynnlp Hx Patient Social History Tobacco Use?: No Substance use?: No Alcohol Use?: No Pt feels they are or have been: No Immunizations Up To Date Tetanus Booster (TDap): Unknown PED Vaccines UTD: Yes First/Initial COVID19 Vaccinat: n/a Second COVID19 Vaccination Venkatesh: n/a Third COVID19 Vaccination Date: n/a Seasonal Allergies Seasonal Allergies: No Past Medical History Surgery/Hospitalization HX: peritoneal dialysis, DM; HTN; Depression; High Cholesterol; GERD; Neuropathy Surgeries: Yes (BILAT ING HERNIA, ESS, ) Abdominal, Adenoidectomy, Appendectomy, Tonsillectomy Respiratory: No Chronic Bronchitis Currently Using CPAP: No Currently Using BIPAP: No Cardiac: Yes (BP MEDICATIONS IN THE PAST-NOT CURRENTLY) Hypertension Neurological: Yes Neuropathy, Seizure Disorder, Stroke Genitourinary: Yes Kidney Stones Gastrointestinal: No (HX OF PANCREATISIS) Pancreatitis Musculoskeletal: Yes Arthritis Endocrine: Yes (HAS AN INSULIN PUMP) Diabetes, Insulin dep HEENT: Yes (LEFT EYE SCLERITIS, RIGHT LOSS PERIPHERALVISION AND DEPTH PERCE PTION) Loss of Vision: Right Hearing Impairment: Denies Cancer: No Psychosocial: Yes Sleep Difficulties, Anxiety, Depression Integumentary: No Blood Disorders: No Family Medical History Colon cancer MATERNAL GRANDFATHER Completed stroke 19 FATHER Deafness or hearing loss 19 FATHER Diabetes mellitus 19 MOTHER (MOM, BROTHER, AUNTS) Gastroenteritis 19 MOTHER Hypercholesterolemia 19 FATHER Hypertension 19 FATHER 19 MOTHER Neoplasm PATERNAL GRANDFATHER (STOMACH) MATERNAL GRANDFATHER (COLON) Psychosocial problem 19 MOTHER Seizure disorder 19 FATHER No Pertinent Family Hx Physical Exam Vital Signs Vital Signs - First Documented 03/21/22 19:40 Temp 36.9 Pulse 104 Resp 16 B/P (MAP) 148/94 (112) Pulse Ox 95 O2 Delivery Room Air Capillary Refill : Less Than 3 Seconds Height, Weight, BMI Height: 5'10.00" Weight: 185lbs. 2.0oz. 83.848436vo; 27.00 BMI Method: General Appearance: WD/WN, no apparent distress HEENT: PERRL/EOMI Neck: full range of motion Cardiovascular: regular rate, rhythm Respiratory: lungs clear, normal breath sounds Gastrointestinal: soft, other (Peritoneal dialysis catheter without signs of inflammation or infection) Back: normal inspection, no CVA tenderness Extremities: non-tender Neurologic/Psychiatric: alert, oriented x 3 Focused Exam Sepsis Stage: Ruled Out Procedures/Interventions Date of ETT Placement: Mar 02, 2019 Time of ETT Placement: 319 Progress/Results/Core Measures Suspected Sepsis SIRS Temperature: Pulse: 104 Respiratory Rate: 16 Blood Pressure 148 /94 Mean: 112 Results/Orders Lab Results Laboratory Tests Test 03/21/22 19:52 Range/Units Urine Color YELLOW Urine Clarity CLEAR Urine pH 6.0 5-9 Urine Specific [place] 1.025 H 1.016-1.022 Urine Protein 3+ H NEGATIVE Urine Glucose (UA) 1+ H NEGATIVE Urine Ketones NEGATIVE NEGATIVE Urine Nitrite NEGATIVE NEGATIVE Urine Bilirubin NEGATIVE NEGATIVE Urine Urobilinogen 0.2 < = 1.0 MG/DL Urine Leukocyte Esterase NEGATIVE NEGATIVE Urine RBC (Auto) 2+ H NEGATIVE Urine RBC 2-5 H /HPF Urine WBC 5-10 H /HPF Urine Squamous Epithelial Cells 2-5 /HPF Urine Crystals NONE /LPF Urine Bacteria FEW H /HPF Urine Casts NONE /LPF Urine Mucus NEGATIVE /LPF Urine Culture Indicated YES My Orders Orders - ABDIRAHMAN BRANDON DO Ua Culture If Indicated (03/21/22 19:47) Ct Abdomen/Pelvis Wo (03/21/22 19:48) Urine Culture (03/21/22 19:52) Vital Signs/I&O 03/21/22 19:40 Temp 36.9 Pulse 104 Resp 16 B/P (MAP) 148/94 (112) Pulse Ox 95 O2 Delivery Room Air Capillary Refill : Less Than 3 Seconds Blood Pressure Mean: 112 Departure Communication (Admissions) CT abdomen pelvis: Free fluid in the pelvis. No findings of nephrolithiasis kidney stone. Reproducible right flank pain with report of hematuria. UA, CT nondiagnostic. No findings of kidney stone, or infection. Symptoms reproduced with palpation or movement. Tylenol given. Recommendations are supportive care watchful napoleon ting and PCP follow-up as needed. Impression Primary Impression: Right flank pain Additional Impression: Hematuria Disposition: HOME, SELF-CARE Condition: Stable Departure-Patient Inst. Decision time for Depature: 20:25 Referrals: FANY WALTER APRN (PCP) Primary Care Physician [facility] (Family) Primary Care Physician Patient Instructions: Blood in Urine (Hematuria), Adult ED, Flank Pain Add. Discharge Instructions: You were evaluated in the emergency department for right flank pain and blood in your urine. Only trace blood was found. CT does not show evidence of kidney stone or acute pathology. Please take Tylenol as needed for pain continue current medications follow-up with your PCP and/or jet mechanic as scheduled. All discharge instructions reviewed with patient and/or family. Voiced understanding. ABDIRAHMAN BRANDON DO Mar 21, 2022 20:19
[2022-03-21] MEDS ORDERED: ACETAMINOPHEN 325 MG TABLET PO ONE (20:30)
== END 2022-03-21 20:31 | disposition home or self-care (01) ==
LOC: EDUNIT# 19:32 → ER FS 19:35
DX: R10.31 Right lower quadrant pain (principal); R31.9 Hematuria, unspecified; Z28.310 Unvaccinated for COVID-19
CPT/HCPCS: 74176; 81000; 87088

== ENCOUNTER 2022-03-24 02:36 | Emergency (ER) | payer MEDICARE, OTHER ==
[~2022-03-24] VITALS: Ht 177.8 cm; Wt 86.7 kg
--- NOTE | 2022-03-24 02:58 | ED Abdominal Pain ---
General Chief Complaint: Abdominal/GI Problems Stated Complaint: ABD PAIN History of Present Illness Date Seen by Provider: Mar 24, 2022 Time Seen by Provider: 02:58 Initial Comments 46-year-old male presents with diffuse mid to upper abdominal pain. Patient is currently on peritoneal dialysis. He notes that the pain started yesterday morning and is worsened to where he cannot hardly tolerate his dialysis. He reports that that his dialysis fluid is turned cloudy. He denies any fevers. Reports that a couple days ago he was working on a vehicle when he accidentally cut his shunt and had it pulled on and reports that he has had some pain since then. Patient reports he called his dialysis nurse who recommended he come to the ER for dialysis fluid testing and antibiotics. Allergies and Home Medications Allergies Coded Allergies: clindamycin (Verified Allergy, Unknown, 05/12/20) Patient Home Medication List Home Medication List Reviewed: Yes Albuterol Sulfate (Proventil Hfa) 6.7 Gm Hfa.aer.ad, 6.7 GM INH Q4H PRN for DYSPNEA Prescribed by: ABDIRAHMAN BRANDON on 02/22/21 155 Amlodipine Besylate (Amlodipine Besylate) 5 Mg Tablet, 5 MG PO DAILY Prescribed by: PERFECTO JOEL on 05/16/20 1146 Aspirin (Aspirin) 81 Mg Tab.chew, 81 MG PO DAILY, (Reported) Entered as Reported by: CLARK BOYD on 05/14/20 143 Azithromycin (Zithromax) 250 Mg Tablet, 250 MG PO UD Prescribed by: ABDIRAHMAN BRANDON on 02/22/21 1551 Cephalexin (Cephalexin) 500 Mg Tablet, 1,000 MG PO BID Prescribed by: ROSALINO DUQUE on 07/15/20 1419 Cholecalciferol (Vitamin D3) (Vitamin D3) 125 Mcg Tablet, 250 MCG PO DAILY, (Reported) Entered as Reported by: CLARK BOYD on 05/14/20 143 Clonidine HCl (Clonidine HCl) 0.1 Mg Tablet, 0.1 MG PO QID, (Reported) Entered as Reported by: CLARK BOYD on 05/14/20 143 Cyanocobalamin (Vitamin B-12) (B-12) 500 Mcg Tablet, 1,000 MCG PO BID, (Reported) Entered as Reported by: CLARK BOYD on 05/14/20 1433 Cyclobenzaprine HCl (Cyclobenzaprine HCl) 10 Mg Tablet, 10 MG PO DAILY PRN for MUSCLE SPASMS, (Reported) Entered as Reported by: CLARK BOYD on 05/14/20 1433 Furosemide (Furosemide) 20 Mg Tablet, 20 MG PO BID, (Reported) Entered as Reported by: CLARK BOYD on 05/14/20 1433 Gabapentin (Gabapentin) 800 Mg Tablet, 800 MG PO TID, (Reported) Entered as Reported by: CLARK BOYD on 05/14/20 1433 Guaifenesin (Mucinex) 1,200 Mg Tab.er.12h, 1,200 MG PO Q12H Prescribed by: SATISH WAYNE on 02/26/21 1128 Hydrocodone/Acetaminophen (Hydrocodone-Acetamin 5-325 mg) 1 Each Tablet, 1 TAB PO Q8H PRN for Chest Wall Pain Prescribed by: SATISH WAYNE on 02/26/21 1129 Insulin Determir (Levemir) 1,000 Units/10 Ml Soln, 10 UNITS SQ HS Prescribed by: PERFECTO JOEL on 05/16/20 1146 Insulin Lispro (Insulin Lispro) 100 Unit/1 Ml Vial, SQ QIDACHS, (Reported) Entered as Reported by: CLARK BOYD on 05/14/20 143 Lisinopril (Lisinopril) 40 Mg Tablet, 40 MG PO DAILY, (Reported) Entered as Reported by: CLARK BOYD on 05/14/20 143 Methylphenidate HCl (Methylphenidate HCl) 5 Mg Tablet, 5 MG PO BID, (Reported) Entered as Reported by: CLARK BOYD on 05/14/20 143 Methylphenidate HCl (Methylphenidate HCl) 10 Mg Tablet, 10 MG PO BID, (Reported) Entered as Reported by: CLARK BOYD on 05/14/20 143 Metoprolol Succinate (Metoprolol Succinate) 100 Mg Tab.er.24h, 100 MG PO DAILY Prescribed by: PERFECTO JOEL on 05/16/20 1146 [place] 3 Polyunsat Fatty Acids (Fish Oil 1,000 mg Capsule) 1,000 Mg Cap, 1,000 MG PO BID, (Reported) Entered as Reported by: CLARK BOYD on 05/14/20 1433 Potassium Chloride (Potassium Chloride) 20 Meq Tablet.er, 20 MEQ PO BID, (Reported) Entered as Reported by: CLARK BOYD on 05/14/20 1433 Prednisone (Prednisone) 20 Mg Tab, 40 MG PO DAILY Prescribed by: ABDIRAHMAN BRANDON on 02/22/21 155 Prednisone (Prednisone) 20 Mg Tab, 20 MG PO DAILY Prescribed by: SATISH WAYNE on 02/23/22 193 Quetiapine Fumarate (Quetiapine Fumarate) 25 Mg Tablet, 50 MG PO HS, (Reported) Entered as Reported by: CLARK BOYD on 05/14/20 143 Sertraline HCl (Sertraline HCl) 100 Mg Tablet, 100 MG PO DAILY, (Reported) Entered as Reported by: CLARK BOYD on 05/14/20 143 Simvastatin (Simvastatin) 40 Mg Tablet, 40 MG PO HS, (Reported) Entered as Reported by: CLARK BOYD on 05/14/201432 Trazodone HCl (Trazodone HCl) 150 Mg Tablet, 150 MG PO HS, (Reported) Entered as Reported by: CLARK BOYD on 05/14/201432 Review of Systems Review of Systems Constitutional: No chills, No fever Respiratory: No Symptoms Reported Cardiovascular: No Symptoms Reported Gastrointestinal: See HPI, Abdominal Pain Genitourinary: No Symptoms Reported Musculoskeletal: no symptoms reported Skin: no symptoms reported Psychiatric/Neurological: No Symptoms Reported Past Zdflidc-Sysohf-Clveeu Hx Immunizations Up To Date Tetanus Booster (TDap): Unknown PED Vaccines UTD: Yes First/Initial COVID19 Vaccinat: n/a Second COVID19 Vaccination Venkatesh: n/a Third COVID19 Vaccination Date: n/a Seasonal Allergies Seasonal Allergies: No Past Medical History Surgery/Hospitalization HX: peritoneal dialysis, DM; HTN; Depression; High Cholesterol; GERD; Neuropathy Surgeries: Yes (BILAT ING HERNIA, ESS, ) Abdominal, Adenoidectomy, Appendectomy, Tonsillectomy Respiratory: No Chronic Bronchitis Currently Using CPAP: No Currently Using BIPAP: No Cardiac: Yes (BP MEDICATIONS IN THE PAST-NOT CURRENTLY) Hypertension Neurological: Yes Neuropathy, Seizure Disorder, Stroke Genitourinary: Yes Kidney Stones Gastrointestinal: No (HX OF PANCREATISIS) Pancreatitis Musculoskeletal: Yes Arthritis Endocrine: Yes (HAS AN INSULIN PUMP) Diabetes, Insulin dep HEENT: Yes (LEFT EYE SCLERITIS, RIGHT LOSS PERIPHERALVISION AND DEPTH PERCEPTION) Loss of Vision: Right Hearing Impairment: Denies Cancer: No Psychosocial: Yes Sleep Difficulties, Anxiety, Depression Integumentary: No Blood Disorders: No Family Medical History Colon cancer MATERNAL GRANDFATHER Completed stroke 19 FATHER Deafness or hearing loss 19 FATHER Diabetes mellitus 19 MOTHER (MOM, BROTHER, AUNTS) Gastroenteritis 19 MOTHER Hypercholesterolemia 19 FATHER Hypertension 19 FATHER 19 MOTHER Neoplasm PATERNAL GRANDFATHER (STOMACH) MATERNAL GRANDFATHER (COLON) Psychosocial problem 19 MOTHER Seizure disorder 19 FATHER No Pertinent Family Hx Physical Exam Vital Signs Vital Signs - First Documented 03/24/22 02:43 Temp 36.6 Pulse 95 Resp 16 B/P (MAP) 127/82 (97) Pulse Ox 98 Capillary Refill : Height/Weight/BMI Height: 5'10.00" Weight: 185lbs. 2.0oz. 83.246133ie; 27.00 BMI Method: General Appearance: WD/WN, no apparent distress Respiratory: lungs clear, normal breath sounds Cardiovascular: normal peripheral pulses, regular rate, rhythm Gastrointestinal: soft, tenderness Neurologic/Psychiatric: alert, normal mood/affect, oriented x 3 Skin: normal color, warm/dry Procedures/Interventions Date of ETT Placement: Mar 02, 2019 Time of ETT Placement: 319 Progress/Results/Core Measures Results/Orders Lab Results Laboratory Tests Test 03/24/22 02:50 Range/Units White Blood Count 9.0 4.3-11.0 10^3/uL Red Blood Count 3.97 L 4.30-5.52 10^6/uL Hemoglobin 12.1 L 13.3-17.7 g/dL Hematocrit 35 L 40-54 % Mean Corpuscular Volume 87 80-99 fL Mean Corpuscular Hemoglobin 31 25-34 pg Mean Corpuscular Hemoglobin Concent 35 32-36 g/dL Red Cell Distribution Width 12.9 10.0-14.5 % Platelet Count 233 130-400 10^3/uL Mean Platelet Volume 9.3 9.0-12.2 fL Immature Granulocyte % (Auto) 0 % Neutrophils (%) (Auto) 64 42-75 % Lymphocytes (%) (Auto) 20 12-44 % Monocytes (%) (Auto) 11 0-12 % Eosinophils (%) (Auto) 4 0-10 % Basophils (%) (Auto) 1 0-10 % Neutrophils # (Auto) 5.8 1.8-7.8 10^3/uL Lymphocytes # (Auto) 1.8 1.0-4.0 10^3/uL Monocytes # (Auto) 1.0 0.0-1.0 10^3/uL Eosinophils # (Auto) 0.4 H 0.0-0.3 10^3/uL Basophils # (Auto) 0.1 0.0-0.1 10^3/uL Immature Granulocyte # (Auto) 0.0 0.0-0.1 10^3/uL Sodium Level 138 135-145 MMOL/L Potassium Level 3.8 3.6-5.0 MMOL/L Chloride Level 95 L 98-107 MMOL/L Carbon Dioxide Level 21 21-32 MMOL/L Anion Gap 22 H 5-14 MMOL/L Blood Urea Nitrogen 60 H 7-18 MG/DL Creatinine 12.51 H 0.60-1.30 MG/DL Estimat Glomerular Filtration Rate 5 BUN/Creatinine Ratio 5 Glucose Level 117 H 70-105 MG/DL Calcium Level 8.9 8.5-10.1 MG/DL Corrected Calcium 9.5 8.5-10.1 MG/DL Total Bilirubin 0.3 0.1-1.0 MG/DL Aspartate Amino Transf (AST/SGOT) 15 5-34 U/L Alanine Aminotransferase (ALT/SGPT) 15 0-55 U/L Alkaline Phosphatase 93 40-136 U/L Total Protein 6.8 6.4-8.2 GM/DL Albumin 3.2 3.2-4.5 GM/DL Lipase 38 8-78 U/L My Orders Orders - PIZARRO,ADELA L DO Cbc With Automated Diff (03/24/22 03:02) Comprehensive Metabolic Panel (03/24/22 03:02) Ct Abdomen/Pelvis Wo (03/24/22 03:02) Procalcitonin (Pct) (03/24/22 02:50) Lipase (03/24/22 03:47) Fentanyl Inj (Sublimaze Injection) (03/24/22 04:09) Cefepime Injection (Maxipime Injection) (03/24/22 04:30) Vancomycin Injection (Vancomycin Injecti (03/24/22 04:30) Vital Signs/I&O 03/24/22 02:43 Temp 36.6 Pulse 95 Resp 16 B/P (MAP) 127/82 (97) Pulse Ox 98 Progress Progress Note : Progress Note Patient with mild cloudy peritoneal fluid in his peritoneal bag. He reports that this is just recently started. Patient also with a colitis. Discussed with Dr. Schulte roll repairer at [facility] [place]. We currently do not have testing capabilities as it would be a send out to test his peritoneal fluid. Patient should have antibiotics at home but reports that he is not sure. Based on concerns for peritonitis along with the colitis on CT we will admit him to [place] for antibiotics. We will initially treat him here with IV Vanco and cefepime. Patient to be transferred via EMS. He was transferred in stable condition. Departure Impression Primary Impression: Peritonitis associated with peritoneal dialysis Qualified Codes: T85.71XA - Infection and inflammatory reaction due to jonatan toneal dialysis catheter, initial encounter Additional Impression: Colitis Disposition: 02 XFER SHT-TRM HOSP Condition: Stable Transfer Transfer Reason: Exceeds level of care Time Spoke to Accepting Phy: 04:33 Transfer Facility: [facility] Method of Transfer: EMS Departure-Patient Inst. Referrals: FANY WALTER APRN (PCP) Primary Care Physician [facility] (Family) Primary Care Physician ADELA PIZARRO DO Mar 24, 2022 02:58
[2022-03-24 03:10] LABS: BASOPHILS # (AUTO) 0.1 10^3/uL (0.0-0.1); BASOPHILS % (AUTO) 1 % (0-10); EOSINOPHILS # (AUTO) 0.4 10^3/uL (0.0-0.3); EOSINOPHILS % (AUTO) 4 % (0-10); HEMATOCRIT 35 % (40-54); HEMOGLOBIN 12.1 g/dL (13.3-17.7); LYMPHOCYTES # (AUTO) 1.8 10^3/uL (1.0-4.0); LYMPHOCYTES % (AUTO) 20 % (12-44); MEAN CORPUSCULAR HEMOGLOBIN 31 pg (25-34); MEAN CORPUSCULAR HGB CONC 35 g/dL (32-36); MEAN CORPUSCULAR VOLUME 87 fL (80-99); MEAN PLATELET VOLUME 9.3 fL (9.0-12.2); MONOCYTES % (AUTO) 11 % (0-12); NEUTROPHILS # (AUTO) 5.8 10^3/uL (1.8-7.8); NEUTROPHILS % (AUTO) 64 % (42-75); PLATELET COUNT 233 10^3/uL (130-400)
[2022-03-24 03:25] LABS: ALBUMIN 3.2 GM/DL (3.2-4.5); BILIRUBIN,TOTAL 0.3 MG/DL (0.1-1.0); CALCIUM 8.9 MG/DL (8.5-10.1); CREATININE SERUM 12.51 MG/DL (0.60-1.30); POTASSIUM 3.8 MMOL/L (3.6-5.0); TOTAL PROTEIN 6.8 GM/DL (6.4-8.2)
[2022-03-24] MEDS ORDERED: fentaNYL INJ 100 MCG/2 ML AMP IVP STA (04:09)
[2022-03-24] MEDS ORDERED: VANCOMYCIN INJECTION 1,000 MG in NS (IVPB) 250 ML IV ONE (04:30)
[2022-03-24] MEDS ORDERED: CEFEPIME INJECTION 500 MG in NS (IVPB) 50 ML IV ONE (04:30)
[2022-03-24] MEDS ORDERED: CALC667S PO (07:24)
[2022-03-24] MEDS ORDERED: SERT100T PO (07:24)
[2022-03-24] MEDS ORDERED: TORS100T4 PO (07:24)
[2022-03-24] MEDS ORDERED: DULO60CA7 PO (07:24)
[2022-03-24] MEDS ORDERED: TRAZ-227 PO (07:24)
[2022-03-24] MEDS ORDERED: AMLO-251 PO (07:24)
[2022-03-24] MEDS ORDERED: FOLI0.8T2 PO (07:24)
[2022-03-24] MEDS ORDERED: [UNRECOGNIZED DRUG - CODE] PO (07:24)
[2022-03-24] MEDS ORDERED: LISI5TAB20 PO (07:24)
[2022-03-24] MEDS ORDERED: ONDA4TAB11 SL (07:24)
[2022-03-24] MEDS ORDERED: CRV25T PO (07:24)
--- NOTE | 2022-03-24 07:25 | Diagnostic Imaging Report ---
PROCEDURE: CT abdomen and pelvis without contrast. TECHNIQUE: Multiple contiguous axial images were obtained through the abdomen and pelvis without the use of intravenous contrast. Auto Exposure Controls were utilized during the CT exam to meet ALARA standards for radiation dose reduction. INDICATION: Abdominal pain, dialysis. COMPARISON: 03/21/2022 FINDINGS: Mild reticular groundglass opacities are identified within the bilateral lung bases, which are new from the prior examination. Central venous catheter is partially visualized. Loop recorder is noted within the left chest. The heart is enlarged. No significant pericardial effusion or pleural effusion. The unenhanced liver and spleen are unremarkable. The adrenal glands are unremarkable. The unenhanced pancreas is unremarkable. The gallbladder is predominantly decompressed. The unenhanced bilateral kidneys are unremarkable without hydronephrosis. Moderate vascular calcifications within the abdominal aorta and its branch vessels without aneurysmal dilatation of the abdominal aorta. Intraperitoneal dialysis catheter is in place coiled within the midline lower pelvis. No focal fluid collection identified adjacent to the tip of the catheter. Mural thickening of the urinary bladder. Postsurgical changes involving the bowel within the right lower quadrant. No bowel obstruction or pneumatosis. Small amount of free gas and free fluid within the abdomen and pelvis. No significant adenopathy. Scattered regions of mural thickening are identified involving the colon. No pneumatosis. Scattered osseous degenerative changes without acute osseous abnormality. IMPRESSION: Scattered regions of mural thickening involving the colon, which may relate to colitis versus poor distention. No bowel obstruction. Mural thickening of the urinary bladder, related to cystitis versus poor distention. Recommend correlation with urinary analysis. Free air and free fluid within the abdomen and pelvis, favored to simply relate to underlying intraperitoneal dialysis. Developing bibasilar atelectasis versus pneumonitis versus simply expiratory phase of imaging within the lung bases. Agree with preliminary interpretation. Dictated by: Dictated on workstation # [id number]
[2022-03-24 07:53] VITALS: BP 137/79
== END 2022-03-24 07:53 | disposition short-term general hospital (02) ==
LOC: EDUNIT# 02:36 → ER FS 02:38
DX: K65.9 Peritonitis, unspecified (principal); K52.9 Noninfective gastroenteritis and colitis, unspecified; Z99.2 Dependence on renal dialysis; Z28.310 Unvaccinated for COVID-19
CPT/HCPCS: 36415; 74176; 80053; 83690; 84145; 85025

== ENCOUNTER 2022-07-10 16:10 | Emergency (ER) | payer MEDICARE, OTHER ==
[~2022-07-10] VITALS: Ht 177 cm; Wt 88.0 kg
[~2022-07-10 16:10] MED LIST changes: +AMLO-251 PO; +CALC667S PO; +CRV25T PO; +DULO60CA7 PO; +FOLI0.8T2 PO; +LISI5TAB20 PO; +ONDA4TAB11 SL; +SERT100T PO; +TORS100T4 PO; +[UNRECOGNIZED DRUG - CODE] PO
--- NOTE | 2022-07-10 16:19 | ED Fall/Injury ---
General Chief Complaint: Head/Cervical Problems Stated Complaint: FALL History of Present Illness Date Seen by Provider: July 10, 2022 Time Seen by Provider: 16:17 Initial Comments 47-year-old male with PMH of DM2 with ESRD on peritoneal dialysis, is here after having a fall off of his porch an hour ago, resulting in complaints of right shoulder pain and right-sided head and neck pain. Patient's states that patient appears tired today and rarely drinks water and does not eat much. Patient just had labs done the day before. Patient normally uses a cane at home while walking. Denies LOC, nausea and vomiting, fever and chills, dysuria, cough, shortness of breath, runny nose, congestion, chest pain, abdominal pain, headache, dizziness. Patient is not on insulin. Allergies and Home Medications Allergies Coded Allergies: clindamycin (Verified Allergy, Unknown, 05/12/20) Patient Home Medication List Home Medication List Reviewed: Yes Amlodipine Besylate (Amlodipine Besylate) 10 Mg Tablet, 10 MG PO HS, (Reported) Entered as Reported by: KALEE ESPINAL on 03/24/22723 Calcium Acetate (Phoslyra) 667 Mg (169 Mg Calcium)/5 Ml Solution, 2,001 MG PO TID, (Reported) Entered as Reported by: KALEE ESPINAL on 03/24/22723 Carvedilol (Coreg) 25 Mg Tab, 25 MG PO BID, (Reported) Entered as Reported by: KALEE ESPINAL on 03/24/22723 Duloxetine HCl (Cymbalta) 60 Mg Capsule.dr, 90 MG PO DAILY, (Reported) Entered as Reported by: KALEE ESPINAL on 03/24/22723 Folic Acid/Vitamin B Comp W-C (Nephro-Sean Tablet) 0.8 Mg Tablet, 0.8 MG PO DAILY, (Reported) Entered as Reported by: KALEE ESPINAL on 03/24/22723 Lisinopril (Lisinopril) 5 Mg Tablet, 5 MG PO HS, (Reported) Entered as Reported by: KALEE ESPINAL on 03/24/22723 Ondansetron (Ondansetron Odt) 4 Mg Tab.rapdis, 4 MG SL Q4H PRN for NAUSEA/VOMITING, (Reported) Entered as Reported by: KALEE ESPINAL on 03/24/22723 Quetiapine Fumarate (Quetiapine Fumarate) 150 Mg Tablet, 150 MG PO HS, (Reported) Entered as Reported by: KALEE ESPINAL on 03/24/22723 Sertraline HCl (Zoloft) 100 Mg Tablet, 100 MG PO DAILY, (Reported) Entered as Reported by: KALEE ESPINAL on 03/24/22723 Torsemide (Torsemide) 100 Mg Tablet, 100 MG PO UD, (Reported) Entered as Reported by: KALEE ESPINAL on 03/24/22723 Trazodone HCl (Trazodone HCl) 100 Mg Tablet, 100 MG PO HS, (Reported) Entered as Reported by: KALEE ESPINAL on 03/24/22723 Review of Systems Review of Systems Constitutional: no symptoms reported Eyes: No Symptoms Reported Ears, Nose, Mouth, Throat: no symptoms reported Respiratory: no symptoms reported Cardiovascular: no symptoms reported Gastrointestinal: no symptoms reported Genitourinary: no symptoms reported Musculoskeletal: joint pain Skin: no symptoms reported Psychiatric/Neurological: See HPI, Other (Right-sided scalp pain and neck pain) Past Imhfgjo-Hjmgqw-Clywep Hx Patient Social History Tobacco Use?: No Use of E-Cig and/or Vaping dev: No Substance use?: No Alcohol Use?: No Immunizations Up To Date Tetanus Booster (TDap): Unknown PED Vaccines UTD: Yes First/Initial COVID19 Vaccinat: n/a Second COVID19 Vaccination Venkatesh: n/a Third COVID19 Vaccination Date: n/a Seasonal Allergies Seasonal Allergies: No Past Medical History Surgery/Hospitalization HX: Peritoneal Dialysis, DM; HTN; Depression; High Cholesterol; GERD; Neuropathy, Hx TIA, Hx Acute Respiratorry Failure, Renal Calculi Surgeries: Yes (BILAT ING HERNIA, ESS, ) Abdominal, Adenoidectomy, Appendectomy, Tonsillectomy Respiratory: No Chronic Bronchitis Currently Using CPAP: No Currently Using BIPAP: No Cardiac: Yes (BP MEDICATIONS IN THE PAST-NOT CURRENTLY) Hypertension Neurological: Yes Neuropathy, Seizure Disorder, Stroke Genitourinary: Yes Kidney Stones Gastrointestinal: No (HX OF PANCREATISIS) Pancreatitis Musculoskeletal: Yes Arthritis Endocrine: Yes (HAS AN INSULIN PUMP) Diabetes, Insulin dep HEENT: Yes (LEFT EYE SCLERITIS, RIGHT LOSS PERIPHERALVISION AND DEPTH PERCEPTION) Loss of Vision: Right Hearing Impairment: Denies Cancer: No Psychosocial: Yes Sleep Difficulties, Anxiety, Depression Integumentary: No Blood Disorders: No Family Medical History Colon cancer MATERNAL GRANDFATHER Completed stroke 19 FATHER Deafness or hearing loss 19 FATHER Diabetes mellitus 19 MOTHER (MOM, BROTHER, AUNTS) Gastroenteritis 19 MOTHER Hypercholesterolemia 19 FATHER Hypertension 19 FATHER 19 MOTHER Neoplasm PATERNAL GRANDFATHER (STOMACH) MATERNAL GRANDFATHER (COLON) Psychosocial problem 19 MOTHER Seizure disorder 19 FATHER No Pertinent Family Hx Physical Exam Vital Signs Vital Signs - First Documented 07/10/22 16:17 Temp 36.3 Pulse 94 Resp 16 B/P (MAP) 136/97 (110) Pulse Ox 100 O2 Delivery Room Air Capillary Refill : Height, Weight, BMI Height: 5'10.00" Weight: 185lbs. 2.0oz. 83.971000le; 27.00 BMI Method: General Appearance: WD/WN, no apparent distress, other (Patient appears tired) HEENT: PERRL/EOMI, normal ENT inspection Neck: non-tender (None tender on palpation), full range of motion, supple, normal inspection Cardiovascular: normal peripheral pulses, regular rate, rhythm Respiratory: chest non-tender, lungs clear Gastrointestinal: non tender, soft Back: normal inspection, no vertebral tenderness Extremities: normal range of motion (Right shoulder: able to touch opposite shouleer without difficulty, full ROM, unrestricted, NV bundle intact), non- tender (To palpation), normal inspection Neurologic/Psychiatric: staffing associate II-XII nml as tested, no motor/sensory deficits, alert, oriented x 3 Procedures/Interventions Date of ETT Placement: Mar 02, 2019 Time of ETT Placement: 032 Progress/Results/Core Measures Results/Orders My Orders Orders - SANTA CARVALHO MD Ua Culture If Indicated (07/10/22 16:30) Ct Head/Cervical Spine Wo (07/10/22 16:31) Shoulder 2 View Right (07/10/22 16:31) Vital Signs/I&O 07/10/22 16:17 Temp 36.3 Pulse 94 Resp 16 B/P (MAP) 136/97 (110) Pulse Ox 100 O2 Delivery Room Air Progress Progress Note : Progress Note 1. FALL/ RIGHT SHOULDER STRAIN: - CT HEAD & C-SPINE: no acute finding - XR RIGHT SHOULDER: unremarkable - UA: pt unable to produce urine in the ER and does not want a straight cath. Pt's states that he urinates every 2 or 3 days. Patient has a nephrology appointment at [facility] on Thursday. Sending patient home with 2 urine cups and advised to collect urine sample and keep in the refrigerator, and take the most recent sample to the nephrology appointment to test. -Advised adequate fluid intake -Advised proper nutrition -Advised pnaj-cbx-shusmmh Lidoderm patches for the shoulder and neck -Follow-up with PCP within the next 7 days -The patient was seen in the ED, and treated appropriately to presentation at a specific point in time. Patient is informed that there is a possibility that disease and illness can evolve and change in acuity rapidly or slowly after patient is discharged from the ER. Precautionary advice given to the patient for immediate return to ER if symptoms worsen or do not resolve, and to seek emergency care sooner rather than later. Pt also advised on the importance of PCP follow up and compliance with management and follow up plan with PCP and/or specialist, as this is part of the management plan. Pt verbally expressed unde rstanding. Diagnostic Imaging Diagonstic Imaging: Xray, CT Plain Films/CT/US/NM/MRI: c-spine, head, other Comments NAME: KELLESOMMER Donita [facility] REC#: [id number] PT STATUS: REG ER : 1975 PHYSICIAN: SANTA CARVALHO MD ADMIT DATE: 07/10/22/ER FS Draft Date of Exam:07/10/22 SHOULDER 2 VIEW RIGHT Shoulder 2 view right INDICATION: Right shoulder pain after fall. COMPARISON: None available. TECHNIQUE: 2 views of right shoulder. FINDINGS: No traumatic malalignment of the glenohumeral or acromioclavicular joints. Subacromial space is preserved. No acute fracture. Visualized aspects of the right ribs are intact. IMPRESSION: No acute fracture or traumatic malalignment. Dictated on workstation # [id number] Dict: 07/10/221717 Trans: 07/10/221718 [facility] [id number] Interpreted by: SILVERIO VELARDE MD Electronically signed by: NAME: SOMMER NINA [facility] REC#: [id number] PT STATUS: REG ER : 1975 PHYSICIAN: SANTA CARVALHO MD ADMIT DATE: 07/10/22/ER FS Draft Date of Exam:07/10/22 CT HEAD/CERVICAL SPINE WO CLINICAL INDICATION: Patient is status post fall with headache. EXAM: Head CT without IV contrast with sagittal and coronal reformations. Axial CT scan of the cervical spine with sagittal and coronal reformations. Auto Exposure Controls were utilized during the CT exam to meet ALARA standards for radiation dose reduction. COMPARISON: Head CT without contrast dated 12/11/2019. FINDINGS: Head CT: There is no evidence of acute cerebral infarct, intracranial hemorrhage, or gross mass effect. Stable encephalomalacia involving the left parietal lobe. The brain parenchymal volume appears appropriate for patient's age. There are subtle patchy areas of low-attenuation white matter changes involving both cerebral hemispheres, likely representing chronic small vessel ischemic disease. There is normal mcwilliams-white matter distinction. There is no significant midline shift or herniation. There is no evidence of hydrocephalus. The basal cisterns are unremarkable. The skull, extracranial soft tissue, and orbits are unremarkable. There is moderate mucosal thickening involving the left maxillary sinus. There is mild mucosal thickening involving the ethmoid sinus, sphenoid sinus, and right maxillary sinus. There is a large amount of consolidation involving the left mastoid air cells and left middle ear region. There is a small amount of consolidation involving the right mastoid air cell regions. Cervical spine: There is no acute cervical spine fracture or dislocation. There is straightening of the cervical spine posture. 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 Visualized upper lung albert are clear. There are cervical spine vertebral body spurs. There is fltrhfrc-hq-hepwbw bilateral C5-C6 neural foramen narrowing due to uncinate spurs. IMPRESSION: 1: There is no evidence of acute intracranial process. There is no skull fracture. 2: There is no acute cervical spine fracture. Dictated on workstation # [id number] Dict: 07/10/22 1654 Trans: 07/10/22 1706 [id number] Interpreted by: MARTIN ECHEVERRIA MD Electronically signed by: Departure Impression Primary Impression: Fall (on) (from) other stairs and steps, initial encounter Additional Impression: Right shoulder strain Qualified Codes: S46.911A - Strain of unspecified muscle, fascia and tendon at shoulder and upper arm level, right arm, initial encounter Disposition: HOME, SELF-CARE Condition: Stable Departure-Patient Inst. Referrals: FANY WALTER APRN (PCP) Primary Care Physician [facility] (Family) Primary Care Physician Patient Instructions: Muscle Strain (DC), Standing Balance Exercises, Beginner Add. Discharge Instructions: Patient has a nephrology appointment at [facility] on Thursday. Sending patient home with 2 urine cups and advised to collect urine sample and keep in the refrigerator, and take the most recent sample to the nephrology appointment to test. -Advised adequate fluid intake -Advised proper nutrition -Advised wvcv-axl-inuygix Lidoderm patches for the shoulder and neck -Follow-up with PCP within the next 7 days All discharge instructions reviewed with patient and/or family. Voiced understanding. SANTA CARVALHO MD July 10, 2022 16:19
--- NOTE | 2022-07-10 17:07 | Diagnostic Imaging Report ---
CLINICAL INDICATION: Patient is status post fall with headache. EXAM: Head CT without IV contrast with sagittal and coronal reformations. Axial CT scan of the cervical spine with sagittal and coronal reformations. Auto Exposure Controls were utilized during the CT exam to meet ALARA standards for radiation dose reduction. COMPARISON: Head CT without contrast dated 12/11/2019. FINDINGS: Head CT: There is no evidence of acute cerebral infarct, intracranial hemorrhage, or gross mass effect. Stable encephalomalacia involving the left parietal lobe. The brain parenchymal volume appears appropriate for patient's age. There are subtle patchy areas of low-attenuation white matter changes involving both cerebral hemispheres, likely representing chronic small vessel ischemic disease. There is normal mcwilliams-white matter distinction. There is no significant midline shift or herniation. There is no evidence of hydrocephalus. The basal cisterns are unremarkable. The skull, extracranial soft tissue, and orbits are unremarkable. There is moderate mucosal thickening involving the left maxillary sinus. There is mild mucosal thickening involving the ethmoid sinus, sphenoid sinus, and right maxillary sinus. There is a large amount of consolidation involving the left mastoid air cells and left middle ear region. There is a small amount of consolidation involving the right mastoid air cell regions. Cervical spine: There is no acute cervical spine fracture or dislocation. There is straightening of the cervical spine posture. 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 Visualized upper lung albetr are clear. There are cervical spine vertebral body spurs. There is ojgwuvid-ho-djbyco bilateral C5-C6 neural foramen narrowing due to uncinate spurs. IMPRESSION: 1: There is no evidence of acute intracranial process. There is no skull fracture. 2: There is no acute cervical spine fracture. Dictated by: Dictated on workstation # [id number]
--- NOTE | 2022-07-10 17:19 | Diagnostic Imaging Report ---
Shoulder 2 view right INDICATION: Right shoulder pain after fall. COMPARISON: None available. TECHNIQUE: 2 views of right shoulder. FINDINGS: No traumatic malalignment of the glenohumeral or acromioclavicular joints. Subacromial space is preserved. No acute fracture. Visualized aspects of the right ribs are intact. IMPRESSION: No acute fracture or traumatic malalignment. Dictated by: Dictated on workstation # [id number]
[2022-07-10 17:43] VITALS: BP 136/97
== END 2022-07-10 17:44 | disposition home or self-care (01) ==
LOC: EDUNIT# 16:10 → ER FS 16:11
DX: S46.911A Strain of unspecified muscle, fascia and tendon at shoulder and upper arm level, right arm, initial encounter (principal); I12.0 Hypertensive chronic kidney disease with stage 5 chronic kidney disease or end stage renal disease; E11.22 Type 2 diabetes mellitus with diabetic chronic kidney disease; N18.6 End stage renal disease; Z99.2 Dependence on renal dialysis; Z96.41 Presence of insulin pump (external) (internal); W10.8XXA Fall (on) (from) other stairs and steps, initial encounter
CPT/HCPCS: 70450; 72125; 73030

== ENCOUNTER 2022-10-29 11:51 | Emergency (ER) | payer OTHER ==
[~2022-10-29] VITALS: Ht 177 cm; Wt 91.0 kg
[~2022-10-29 11:51] MED LIST changes: +POTA-330 PO; -POTA-51 PO
--- NOTE | 2022-10-29 11:54 | ED General ---
General Stated Complaint: MALAISE History of Present Illness Date Seen by Provider: Oct 29, 2022 Time Seen by Provider: 11:52 Initial Comments 47-year-old male with PMH of DM type 1/renal failure on daily peritoneal dialysis, is brought in by EMS with complaints of generalized weakness which began around 11 AM today morning. Patient started to feel lethargic and generally ill. Patient feels too tired to walk or get around by himself. Patient states that he has been on an antibiotic for peritonitis for the past 1 month and yesterday he was supposed to begin vancomycin but he did not since he did not have any normal saline at home to mix the medication. Patient did not have any antibiotics yesterday. Patient states that he has been having diarrhea every day for 1 month, and reports that it is brown in color. Patient is also complaining of cough and sputum production which began yesterday. No known sick contacts. Allergies and Home Medications Allergies Coded Allergies: clindamycin (Verified Allergy, Unknown, 05/12/20) Patient Home Medication List Home Medication List Reviewed: Yes Amlodipine Besylate (Amlodipine Besylate) 10 Mg Tablet, 10 MG PO HS, (Reported) Entered as Reported by: KALEE ESPINAL on 03/24/22723 Calcium Acetate (Phoslyra) 667 Mg (169 Mg Calcium)/5 Ml Solution, 2,001 MG PO TID, (Reported) Entered as Reported by: KALEE ESPINAL on 03/24/22723 Carvedilol (Coreg) 25 Mg Tab, 25 MG PO BID, (Reported) Entered as Reported by: KALEE ESPINAL on 03/24/22723 Duloxetine HCl (Cymbalta) 60 Mg Capsule.dr, 90 MG PO DAILY, (Reported) Entered as Reported by: KALEE ESPINAL on 03/24/22723 Folic Acid/Vitamin B Comp W-C (Nephro-Sean Tablet) 0.8 Mg Tablet, 0.8 MG PO DAILY, (Reported) Entered as Reported by: KALEE ESPINAL on 03/24/22723 Lisinopril (Lisinopril) 5 Mg Tablet, 5 MG PO HS, (Reported) Entered as Reported by: KALEE ESPINAL on 03/24/22723 Ondansetron (Ondansetron Odt) 4 Mg Tab.rapdis, 4 MG SL Q4H PRN for NAUSEA/VOMITING, (Reported) Entered as Reported by: KALEE ESPINAL on 03/24/22723 Quetiapine Fumarate (Quetiapine Fumarate) 150 Mg Tablet, 150 MG PO HS, (Reported) Entered as Reported by: KALEE ESPINAL on 03/24/22723 Sertraline HCl (Zoloft) 100 Mg Tablet, 100 MG PO DAILY, (Reported) Entered as Reported by: KALEE ESPINAL on 03/24/22723 Torsemide (Torsemide) 100 Mg Tablet, 100 MG PO UD, (Reported) Entered as Reported by: KALEE ESPINAL on 03/24/22723 Trazodone HCl (Trazodone HCl) 100 Mg Tablet, 100 MG PO HS, (Reported) Entered as Reported by: KALEE ESPINAL on 03/24/22723 Review of Systems Review of Systems Constitutional: see HPI, malaise, weakness EENTM: no symptoms reported Respiratory: see HPI, cough, phlegm Cardiovascular: no symptoms reported Gastrointestinal: see HPI, diarrhea Genitourinary: no symptoms reported Musculoskeletal: no symptoms reported Skin: no symptoms reported Psychiatric/Neurological: No Symptoms Reported Hematologic/Lymphatic: No Symptoms Reported Immunological/Allergic: no symptoms reported Past Tvtqalb-Tzcjix-Vkpnel Hx Immunizations Up To Date Tetanus Booster (TDap): Unknown PED Vaccines UTD: Yes First/Initial COVID19 Vaccinat: n/a Second COVID19 Vaccination Venkatesh: n/a Third COVID19 Vaccination Date: n/a Seasonal Allergies Seasonal Allergies: No Past Medical History Surgery/Hospitalization HX: Peritoneal Dialysis, DM; HTN; Depression; High Cholesterol; GERD; Neuropathy, Hx TIA, Hx Acute Respiratorry Failure, Renal Calculi Surgeries: Yes (BILAT ING HERNIA, ESS, ) Abdominal, Adenoidectomy, Appendectomy, Tonsillectomy Respiratory: No Chronic Bronchitis Currently Using CPAP: No Currently Using BIPAP: No Cardiac: Yes (BP MEDICATIONS IN THE PAST-NOT CURRENTLY) Hypertension Neurological: Yes Neuropathy, Seizure Disorder, Stroke Genitourinary: Yes Kidney Stones Gastrointestinal: No (HX OF PANCREATISIS) Pancreatitis Musculoskeletal: Yes Arthritis Endocrine: Yes (HAS AN INSULIN PUMP) Diabetes, Insulin dep HEENT: Yes (LEFT EYE SCLERITIS, RIGHT LOSS PERIPHERALVISION AND DEPTH PERCEPTION) Loss of Vision: Right Hearing Impairment: Denies Cancer: No Psychosocial: Yes Sleep Difficulties, Anxiety, Depression Integumentary: No Blood Disorders: No Family Medical History Colon cancer MATERNAL GRANDFATHER Completed stroke 19 FATHER Deafness or hearing loss 19 FATHER Diabetes mellitus 19 MOTHER (MOM, BROTHER, AUNTS) Gastroenteritis 19 MOTHER Hypercholesterolemia 19 FATHER Hypertension 19 FATHER 19 MOTHER Neoplasm PATERNAL GRANDFATHER (STOMACH) MATERNAL GRANDFATHER (COLON) Psychosocial problem 19 MOTHER Seizure disorder 19 FATHER No Pertinent Family Hx Physical Exam Vital Signs Vital Signs - First Documented 10/29/22 12:00 Temp 36.7 Pulse 77 Resp 18 B/P (MAP) 74/48 (57) Pulse Ox 97 O2 Delivery Room Air Capillary Refill : Height, Weight, BMI Height: 5'10.00" Weight: 185lbs. 2.0oz. 83.192243ca; 28.00 BMI Method: General Appearance: Moderate Distress HEENT: PERRL/EOMI, Normal ENT Inspection Neck: Full Range of Motion, Normal Inspection, Non Tender, Supple Respiratory: Chest Non Tender, Lungs Clear, Normal Breath Sounds, No Accessory Muscle Use, No Respiratory Distress Cardiovascular: Regular Rate, Rhythm, No Edema Gastrointestinal: Normal Bowel Sounds, Non Tender, Soft, Distended (Patient has ascites) Back: Normal Inspection, No CVA Tenderness Extremity: Other (Patient has multiple sores on both of his legs) Neurologic/Psychiatric: Alert, Oriented x3, No Motor/Sensory Deficits Skin: Pallor Focused Exam Lactate Level 10/29/22 11:50: Lactic Acid Level 2.23*H Lactic Acid Level Laboratory Tests Test 10/29/22 11:50 Lactic Acid Level 2.23 MMOL/L (0.50-2.00) *H Procedures/Interventions Date of ETT Placement: Mar 02, 2019 Time of ETT Placement: 0320 Progress/Results/Core Measures Suspected Sepsis SIRS Temperature: Pulse: Respiratory Rate: Laboratory Tests 10/29/22 11:50: White Blood Count 6.5 Blood Pressure / Mean: 10/29/22 11:50: Lactic Acid Level 2.23*H Laboratory Tests 10/29/22 11:50: Creatinine 7.84H, INR Comment 1.0, Platelet Count 221, Total Bilirubin 0.2 Results/Orders Lab Results Laboratory Tests Test 10/29/22 11:50 Range/Units White Blood Count 6.5 4.3-11.0 10^3/uL Red Blood Count 2.93 L 4.30-5.52 10^6/uL Hemoglobin 8.7 L 13.3-17.7 g/dL Hematocrit 26 L 40-54 % Mean Corpuscular Volume 90 80-99 fL Mean Corpuscular Hemoglobin 30 25-34 pg Mean Corpuscular Hemoglobin Concent 33 32-36 g/dL Red Cell Distribution Width 13.7 10.0-14.5 % Platelet Count 221 130-400 10^3/uL Mean Platelet Volume 9.0 9.0-12.2 fL Immature Granulocyte % (Auto) 2 % Neutrophils (%) (Auto) 67 42-75 % Lymphocytes (%) (Auto) 15 12-44 % Monocytes (%) (Auto) 11 0-12 % Eosinophils (%) (Auto) 4 0-10 % Basophils (%) (Auto) 1 0-10 % Neutrophils # (Auto) 4.4 1.8-7.8 10^3/uL Lymphocytes # (Auto) 1.0 1.0-4.0 10^3/uL Monocytes # (Auto) 0.7 0.0-1.0 10^3/uL Eosinophils # (Auto) 0.3 0.0-0.3 10^3/uL Basophils # (Auto) 0.1 0.0-0.1 10^3/uL Immature Granulocyte # (Auto) 0.1 0.0-0.1 10^3/uL Prothrombin Time 13.4 12.2-14.7 SEC INR Comment 1.0 0.8-1.4 Activated Partial Thromboplast Time 34 24-35 SEC Sodium Level 134 L 135-145 MMOL/L Potassium Level 3.1 L 3.6-5.0 MMOL/L Chloride Level 95 L 98-107 MMOL/L Carbon Dioxide Level 26 21-32 MMOL/L Anion Gap 13 5-14 MMOL/L Blood Urea Nitrogen 25 H 7-18 MG/DL Creatinine 7.84 H 0.60-1.30 MG/DL Estimat Glomerular Filtration Rate 8 BUN/Creatinine Ratio 3 Glucose Level 135 H 70-105 MG/DL Lactic Acid Level 2.23 *H 0.50-2.00 MMOL/L Calcium Level 8.2 L 8.5-10.1 MG/DL Corrected Calcium 9.9 8.5-10.1 MG/DL Magnesium Level 1.6 1.6-2.4 MG/DL Total Bilirubin 0.2 0.1-1.0 MG/DL Aspartate Amino Transf (AST/SGOT) 10 5-34 U/L Alanine Aminotransferase (ALT/SGPT) 6 0-55 U/L Alkaline Phosphatase 56 40-136 U/L Troponin I < 0.30 <0.30 NG/ML Pro-B-Type Natriuretic Peptide 8607.0 H <125.0 PG/ML Total Protein 5.4 L 6.4-8.2 GM/DL Albumin 1.9 L 3.2-4.5 GM/DL Lipase 15 8-78 U/L Influenza Type A (RT-PCR) Not Detected Not Detecte Influenza Type B (RT-PCR) Not Detected Not Detecte SARS-CoV-2 RNA (RT-PCR) Detected H Not Detecte My Orders Orders - SANTA CARVALHO MD Chest 1 View Ap/Pa Only (10/29/22 11:55) Covid 19 Inhouse Test (10/29/22 11:55) Influenza A And B By Pcr (10/29/22 11:55) Ammonia (10/29/22 11:56) Cbc With Automated Diff (10/29/22 11:56) Comprehensive Metabolic Panel (10/29/22 11:56) Lipase (10/29/22 11:56) Magnesium (10/29/22 11:56) Protime With Inr (10/29/22 11:56) Partial Thromboplastin Time (10/29/22 11:56) Ua Culture If Indicated (10/29/22 11:56) Blood Culture (10/29/22 11:56) Probnp Fs (10/29/22 11:56) Troponin I Fs (10/29/22 11:56) Lactic Acid Analyzer (10/29/22 11:56) Vancomycin Injection (Vancomycin Injecti (10/29/22 12:45) Medications Given in ED Current Medications Medications Dose Ordered Sig/Ruperto Route Start Time Stop Time Status Last Admin Dose Admin Vancomycin HCl 1000 mg/Sodium Chloride 250 ml @ 250 mls/hr ONCE ONCE IV 10/29/22 12:45 10/29/22 13:44 DC 10/29/22 12:54 250 MLS/HR Vital Signs/I&O 10/29/22 12:00 Temp 36.7 Pulse 77 Resp 18 B/P (MAP) 74/48 (57) Pulse Ox 97 O2 Delivery Room Air Capillary Refill : Progress Note : Progress Note 1. GENERALIZED WEAKNESS & COVID POSITIVE PNEUMONIA WITH DEHYDRATION & HYPOTENSION: - CXR: left lower lobe pneumonia - COVID test: positive - Rapid flu test negative - CBC: WBC is normal - Lactic acid is elevated: 2.23 - NS, 500ml bolus, then 100ml/hr -Patient's pneumonia is due to COVID, especially since WBC is normal it is unlikely to be a bacterial pneumonia. -Patient will benefit from admission due to an inability to take care of himself due to generalized weakness. Discussed with Dr. Keller and accepted for admission to [facility]. 2. PERITONITIS: -Patient has been on antibiotics and was supposed to start vancomycin for peritonitis yesterday, however he did not have enough NS at home to mix the antibiotic so he did not start it. -Vancomycin 1 g IV stat in the ER 3. RENAL FAILURE ON DAILY HOME PERITONEAL DIALYSIS: - s. Creatinine is 7.84, BUN: 25 -CMP shows borderline electrolyte deficiencies such as sodium of 134 and potassium of 3.1 -Low albumin level of 1.9 - Pt would benefit from nephrology consult and admission to the hospital which can provide dialysis Diagnostic Imaging Diagonstic Imaging: Xray Plain Films/CT/US/NM/MRI: chest Comments [facility]. [place], [place] NAME: SOMMER NINA [facility] REC#: [id number] PT STATUS: REG ER : 1975 PHYSICIAN: SANTA CARVALHO MD ADMIT DATE: 10/29/22/ER FS Draft Date of Exam:10/29/22 CHEST 1 VIEW AP/PA ONLY INDICATION: Generalized weakness. COMPARISON: 02/23/2022. FINDINGS: Right IJ dialysis catheter removed. There is no pneumothorax. Upper limits heart size stable. There is slight basilar atelectasis on the right and aazm-ic-fkyztfeo left basilar pulmonary opacity favored to be atelectasis but in the appropriate clinical scenario a developing left lower lobe pneumonia could not be excluded. IMPRESSION: 1. Probable left greater than right bibasilar atelectasis correlate for potential left lower lobe pneumonia. 2. No pneumothorax or overt failure pattern. Dictated on workstation # [id number] Dict: 10/29/22 1248 Trans: 10/29/22 1302 [id number] Interpreted by: MICHAEL MCCOLLUM Electronically signed by: Departure Impression Primary Impression: Lab test positive for detection of COVID-19 virus Additional Impressions: Pneumonia due to COVID-19 virus Generalized weakness Dehydration Renal failure treated with peritoneal dialysis Peritonitis Disposition: 02 XFER SHT-TRM HOSP Condition: Stable Admissions Decision to Admit/Date: Oct 29, 2022 Time/Decision to Admit Time: 12:30 Transfer [facility] Medically Cleared for Xfer: Yes Transfer Reason: Exceeds level of care Time Spoke to Accepting Phy: 12:44 Transfer Progress Notes Patient excepted by Dr. Keller, hospitalist, to [facility] Transfer Facility: [facility] Method of Transfer: EMS Departure-Patient Inst. Referrals: FANY WALTER APRN (PCP) Primary Care Physician [facility] (Family) Primary Care Physician SANTA CARVALHO MD Oct 29, 2022 11:54
[2022-10-29 12:19] LABS: BASOPHILS # (AUTO) 0.1 10^3/uL (0.0-0.1); BASOPHILS % (AUTO) 1 % (0-10); EOSINOPHILS # (AUTO) 0.3 10^3/uL (0.0-0.3); EOSINOPHILS % (AUTO) 4 % (0-10); HEMATOCRIT 26 % (40-54); HEMOGLOBIN 8.7 g/dL (13.3-17.7); LYMPHOCYTES % (AUTO) 15 % (12-44); MEAN CORPUSCULAR HEMOGLOBIN 30 pg (25-34); MEAN CORPUSCULAR HGB CONC 33 g/dL (32-36); MEAN CORPUSCULAR VOLUME 90 fL (80-99); MONOCYTES # (AUTO) 0.7 10^3/uL (0.0-1.0); MONOCYTES % (AUTO) 11 % (0-12); NEUTROPHILS # (AUTO) 4.4 10^3/uL (1.8-7.8); NEUTROPHILS % (AUTO) 67 % (42-75); PLATELET COUNT 221 10^3/uL (130-400); WHITE BLOOD COUNT 6.5 10^3/uL (4.3-11.0)
[2022-10-29 12:29] LABS: PROTHROMBIN TIME PATIENT 13.4 SEC (12.2-14.7)
[2022-10-29 12:39] LABS: BILIRUBIN,TOTAL 0.2 MG/DL (0.1-1.0); BUN/CREATININE RATIO 3; CALCIUM 8.2 MG/DL (8.5-10.1); CARBON DIOXIDE 26 MMOL/L (21-32); CHLORIDE 95 MMOL/L (98-107); CREATININE SERUM 7.84 MG/DL (0.60-1.30); GFR ESTIMATED 8; GLUCOSE 135 MG/DL (70-105); MAGNESIUM 1.6 MG/DL (1.6-2.4); POTASSIUM 3.1 MMOL/L (3.6-5.0); SODIUM 134 MMOL/L (135-145)
[2022-10-29 12:40] LABS: ALANINE AMINOTRANSFERASE 6 U/L (0-55); ALBUMIN 1.9 GM/DL (3.2-4.5); ALKALINE PHOSPHATASE 56 U/L (40-136); LIPASE 15 U/L (8-78); TOTAL PROTEIN 5.4 GM/DL (6.4-8.2)
[2022-10-29] MEDS ORDERED: VANCOMYCIN INJECTION 1,000 MG in NS (IVPB) 250 ML 250 ML IV ONE (12:45)
--- NOTE | 2022-10-29 13:03 | Diagnostic Imaging Report ---
INDICATION: Generalized weakness. COMPARISON: 02/23/2022. FINDINGS: Right IJ dialysis catheter removed. There is no pneumothorax. Upper limits heart size stable. There is slight basilar atelectasis on the right and [id number]-[id number] left basilar pulmonary opacity favored to be atelectasis but in the appropriate clinical scenario a developing left lower lobe pneumonia could not be excluded. IMPRESSION: 1. Probable left greater than right bibasilar atelectasis correlate for potential left lower lobe pneumonia. 2. No pneumothorax or overt failure pattern. Dictated by: Dictated on workstation # [id number]
[2022-10-29 14:16] VITALS: BP 142/85
[2022-10-29 14:59] LABS: AMMONIA 26 UMOL/L (11-32)
== END 2022-10-29 14:30 | disposition short-term general hospital (02) ==
LOC: EDUNIT# 11:51 → ER FS 11:52
DX: U07.1 COVID-19 (principal); J12.82 Pneumonia due to coronavirus disease 2019; R53.1 Weakness; E86.0 Dehydration; K65.9 Peritonitis, unspecified; I12.0 Hypertensive chronic kidney disease with stage 5 chronic kidney disease or end stage renal disease; E10.22 Type 1 diabetes mellitus with diabetic chronic kidney disease; N18.6 End stage renal disease; E10.40 Type 1 diabetes mellitus with diabetic neuropathy, unspecified; Z99.2 Dependence on renal dialysis; Z79.4 Long term (current) use of insulin
CPT/HCPCS: 36415; 71045; 80053; 82140; 83605; 83690; 83735; 83880; 84484; 85025; 85610; 85730; 87040; 87636; 96365

== ENCOUNTER 2022-12-20 03:46 | Emergency (ER) | payer MEDICARE, OTHER ==
[~2022-12-20] VITALS: Ht 177.8 cm; Wt 90.7 kg
[~2022-12-20 03:46] MED LIST changes: -INSU100V39 SQ; +INSU100V45 SQ
[2022-12-20] MEDS ORDERED: ONDANSETRON INJECTION 4 MG/2 ML (SDV) IVP STA (03:56)
[2022-12-20] MEDS ORDERED: NS IV 500 ML 500 ML IV STA (03:56)
[2022-12-20 04:01] LABS: BASOPHILS % (AUTO) 1 % (0-10); EOSINOPHILS # (AUTO) 0.2 10^3/uL (0.0-0.3); EOSINOPHILS % (AUTO) 4 % (0-10); HEMATOCRIT 29 % (40-54); HEMOGLOBIN 9.5 g/dL (13.3-17.7); LYMPHOCYTES # (AUTO) 0.9 10^3/uL (1.0-4.0); LYMPHOCYTES % (AUTO) 15 % (12-44); MEAN CORPUSCULAR HEMOGLOBIN 28 pg (25-34); MEAN CORPUSCULAR HGB CONC 33 g/dL (32-36); MEAN CORPUSCULAR VOLUME 84 fL (80-99); MEAN PLATELET VOLUME 9.1 fL (9.0-12.2); MONOCYTES # (AUTO) 0.4 10^3/uL (0.0-1.0); MONOCYTES % (AUTO) 7 % (0-12); NEUTROPHILS # (AUTO) 4.3 10^3/uL (1.8-7.8); NEUTROPHILS % (AUTO) 73 % (42-75); PLATELET COUNT 175 10^3/uL (130-400); WHITE BLOOD COUNT 5.9 10^3/uL (4.3-11.0)
--- NOTE | 2022-12-20 04:02 | ED General ---
General Stated Complaint: SYNCOPE/LETHARGY Source of Information: Patient, EMS, Old Records History of Present Illness Date Seen by Provider: Dec 20, 2022 Time Seen by Provider: 03:46 Initial Comments 47-year-old male presenting with complaints of syncope and lethargy. He has not felt well throughout the day. He was drinking water okay but has no appetite. He tried the at suppertime and it made him nauseated. He only had 1 bite and stopped. He had gotten up to use the bathroom overnight and had passed out. He is doing peritoneal dialysis. He states that his dialysate has been clear. He has had some cough but does not feel it is worse than what he has had for the last several days. He recently had COVID with pneumonia at the end of September. He had been admitted at [facility] in [address] at that time. He feels very tired and feels like his belly is tight with fluid. He denies any abdominal pain. He has had some diarrhea but this has been fairly chronic for him. He was having some chills on arrival to the ED but denied having fever. Accucheck for EMS was 245 Timing/Duration: 12-24 Hours Severity: Moderate Modifying Factors: worse with Eating Associated Systoms: No Chest Pain; Cough; No Diaphoresis; Loss of Appetite, Malaise, Nausea/Vomiting (nausea but no vomiting); No Seizure, No Shortness of Air; Syncope, Weakness Allergies and Home Medications Allergies Coded Allergies: clindamycin (Verified Allergy, Unknown, 05/12/20) Patient Home Medication List Home Medication List Reviewed: Yes Amlodipine Besylate (Amlodipine Besylate) 10 Mg Tablet, 10 MG PO HS, (Reported) Entered as Reported by: KALEE ESPINAL on 03/24/22723 Calcium Acetate (Phoslyra) 667 Mg (169 Mg Calcium)/5 Ml Solution, 2,001 MG PO TID, (Reported) Entered as Reported by: KALEE ESPINAL on 03/24/22723 Carvedilol (Coreg) 25 Mg Tab, 25 MG PO BID, (Reported) Entered as Reported by: KALEE ESPINAL on 03/24/22723 Duloxetine HCl (Cymbalta) 60 Mg Capsule.dr, 90 MG PO DAILY, (Reported) Entered as Reported by: KALEE ESPINAL on 03/24/22723 Folic Acid/Vitamin B Comp W-C (Nephro-Sean Tablet) 0.8 Mg Tablet, 0.8 MG PO DAILY, (Reported) Entered as Reported by: KALEE ESPINAL on 03/24/22723 Lisinopril (Lisinopril) 5 Mg Tablet, 5 MG PO HS, (Reported) Entered as Reported by: KALEE ESPINAL on 03/24/22723 Ondansetron (Ondansetron Odt) 4 Mg Tab.rapdis, 4 MG SL Q4H PRN for NAUSEA/VOMITING, (Reported) Entered as Reported by: KALEE ESPINAL on 03/24/22723 Quetiapine Fumarate (Quetiapine Fumarate) 150 Mg Tablet, 150 MG PO HS, (Reported) Entered as Reported by: KALEE ESPINAL on 03/24/22723 Sertraline HCl (Zoloft) 100 Mg Tablet, 100 MG PO DAILY, (Reported) Entered as Reported by: KALEE ESPINAL on 03/24/22723 Torsemide (Torsemide) 100 Mg Tablet, 100 MG PO UD, (Reported) Entered as Reported by: KALEE ESPINAL on 03/24/22723 Trazodone HCl (Trazodone HCl) 100 Mg Tablet, 100 MG PO HS, (Reported) Entered as Reported by: KALEE ESPINAL on 03/24/22723 Review of Systems Review of Systems Constitutional: chills; No fever; malaise, weakness EENTM: no symptoms reported Respiratory: see HPI Cardiovascular: No chest pain Gastrointestinal: see HPI Musculoskeletal: no symptoms reported Skin: no symptoms reported Psychiatric/Neurological: See HPI Past Kawtgwn-Bujwaf-Nthncj Hx Patient Social History Tobacco Use?: No Use of E-Cig and/or Vaping dev: No Substance use?: No Immunizations Up To Date Tetanus Booster (TDap): Unknown PED Vaccines UTD: Yes First/Initial COVID19 Vaccinat: n/a Second COVID19 Vaccination Venkatesh: n/a Third COVID19 Vaccination Date: n/a Seasonal Allergies Seasonal Allergies: No Past Medical History Surgery/Hospitalization HX: Peritoneal Dialysis, DM; HTN; Depression; High Cholesterol; GERD; Neuropathy, Hx TIA, Hx Acute Respiratorry Failure, Renal Calculi Surgeries: Yes (BILAT ING HERNIA, ESS, ) Abdominal, Adenoidectomy, Appendectomy, Tonsillectomy Respiratory: No Chronic Bronchitis Currently Using CPAP: No Currently Using BIPAP: No Cardiac: Yes (BP MEDICATIONS IN THE PAST-NOT CURRENTLY) Hypertension Neurological: Yes Neuropathy, Seizure Disorder, Stroke Genitourinary: Yes Kidney Stones Gastrointestinal: No (HX OF PANCREATISIS) Pancreatitis Musculoskeletal: Yes Arthritis Endocrine: Yes (HAS AN INSULIN PUMP) Diabetes, Insulin dep HEENT: Yes (LEFT EYE SCLERITIS, RIGHT LOSS PERIPHERALVISION AND DEPTH PERCEP TION) Loss of Vision: Right Hearing Impairment: Denies Cancer: No Psychosocial: Yes Sleep Difficulties, Anxiety, Depression Integumentary: No Blood Disorders: No Family Medical History Colon cancer MATERNAL GRANDFATHER Completed stroke 19 FATHER Deafness or hearing loss 19 FATHER Diabetes mellitus 19 MOTHER (MOM, BROTHER, AUNTS) Gastroenteritis 19 MOTHER Hypercholesterolemia 19 FATHER Hypertension 19 FATHER 19 MOTHER Neoplasm PATERNAL GRANDFATHER (STOMACH) MATERNAL GRANDFATHER (COLON) Psychosocial problem 19 MOTHER Seizure disorder 19 FATHER No Pertinent Family Hx Physical Exam Vital Signs Vital Signs - First Documented 12/20/22 03:47 Temp 36.5 Pulse 74 Resp 16 B/P (MAP) 72/41 (51) Pulse Ox 95 O2 Delivery Room Air Capillary Refill : Height, Weight, BMI Height: 5'10.00" Weight: 185lbs. 2.0oz. 83.386519fm; 29.00 BMI Method: General Appearance: No Apparent Distress, Chronically ill HEENT: No Moist Mucous Membranes (dry mucus membranes) Neck: Full Range of Motion, Supple Respiratory: Chest Non Tender, Lungs Clear, Normal Breath Sounds, No Accessory Muscle Use, No Respiratory Distress Cardiovascular: Regular Rate, Rhythm, Normal Peripheral Pulses Gastrointestinal: Normal Bowel Sounds, No Pulsatile Mass, Non Tender, Soft Rectal: Deferred Extremity: No Pedal Edema, Other (scabs and sores on bilateral lower extremities) Neurologic/Psychiatric: Alert, Oriented x3 Skin: Warm/Dry, Pallor Focused Exam Sepsis Stage: Severe Sepsis Possible Source: Pulmonary Lactate Level 12/20/22 03:55: Lactic Acid Level 3.84*H 12/20/22 05:20: Lactic Acid Level 2.39*H Time of Focused Exam: 04:45 Respiratory: Chest Non Tender, Lungs Clear, Normal Breath Sounds, No Accessory Muscle Use, No Respiratory Distress Cardiovascular: Regular Rate, Rhythm, Normal Peripheral Pulses Capillary Refill: Less Than 3 Seconds Skin: pallor Lactic Acid Level Laboratory Tests Test 12/20/22 03:55 12/20/22 05:20 Lactic Acid Level 3.84 MMOL/L (0.50-2.00) *H 2.39 MMOL/L (0.50-2.00) *H Within 3hrs of presentation: Admin fluids, Admin ABX, Blood cultures prior to ABX's, Focus exam, Lactate level Procedures/Interventions Date of ETT Placement: Mar 02, 2019 Time of ETT Placement: 319 Progress/Results/Core Measures Suspected Sepsis SIRS Temperature: Pulse: Respiratory Rate: Laboratory Tests 12/20/22 03:55: White Blood Count 5.9 Blood Pressure / Mean: 12/20/22 03:55: Lactic Acid Level 3.84*H 12/20/22 05:20: Lactic Acid Level 2.39*H Laboratory Tests 12/20/22 03:55: Creatinine 9.20H, INR Comment 0.9, Platelet Count 175, Total Bilirubin 0.2 12/20/22 05:20: Creatinine 8.99H Results/Orders Lab Results Laboratory Tests Test 12/20/22 03:55 12/20/22 05:20 Range/Units White Blood Count 5.9 4.3-11.0 10^3/uL Red Blood Count 3.40 L 4.30-5.52 10^6/uL Hemoglobin 9.5 L 13.3-17.7 g/dL Hematocrit 29 L 40-54 % Mean Corpuscular Volume 84 80-99 fL Mean Corpuscular Hemoglobin 28 25-34 pg Mean Corpuscular Hemoglobin Concent 33 32-36 g/dL Red Cell Distribution Width 13.8 10.0-14.5 % Platelet Count 175 130-400 10^3/uL Mean Platelet Volume 9.1 9.0-12.2 fL Immature Granulocyte % (Auto) 1 % Neutrophils (%) (Auto) 73 42-75 % Lymphocytes (%) (Auto) 15 12-44 % Monocytes (%) (Auto) 7 0-12 % Eosinophils (%) (Auto) 4 0-10 % Basophils (%) (Auto) 1 0-10 % Neutrophils # (Auto) 4.3 1.8-7.8 10^3/uL Lymphocytes # (Auto) 0.9 L 1.0-4.0 10^3/uL Monocytes # (Auto) 0.4 0.0-1.0 10^3/uL Eosinophils # (Auto) 0.2 0.0-0.3 10^3/uL Basophils # (Auto) 0.0 0.0-0.1 10^3/uL Immature Granulocyte # (Auto) 0.1 0.0-0.1 10^3/uL Prothrombin Time 12.7 12.2-14.7 SEC INR Comment 0.9 0.8-1.4 Activated Partial Thromboplast Time 22 L 24-35 SEC Sodium Level 133 L 136 135-145 MMOL/L Potassium Level 1.7 *L 1.8 *L 3.6-5.0 MMOL/L Chloride Level 96 L 100 98-107 MMOL/L Carbon Dioxide Level 23 25 21-32 MMOL/L Anion Gap 14 11 5-14 MMOL/L Blood Urea Nitrogen 19 H 19 H 7-18 MG/DL Creatinine 9.20 H 8.99 H 0.60-1.30 MG/DL Estimat Glomerular Filtration Rate 6 7 BUN/Creatinine Ratio 2 2 Glucose Level 253 H 192 H 70-105 MG/DL Lactic Acid Level 3.84 *H 2.39 *H 0.50-2.00 MMOL/L Calcium Level 7.9 L 7.5 L 8.5-10.1 MG/DL Corrected Calcium 9.6 8.5-10.1 MG/DL Magnesium Level 1.5 L 1.6-2.4 MG/DL Total Bilirubin 0.2 0.1-1.0 MG/DL Aspartate Amino Transf (AST/SGOT) 18 5-34 U/L Alanine Aminotransferase (ALT/SGPT) 13 0-55 U/L Alkaline Phosphatase 82 40-136 U/L Troponin I < 0.30 <0.30 NG/ML Pro-B-Type Natriuretic Peptide 90500.0 H <125.0 PG/ML Total Protein 5.4 L 6.4-8.2 GM/DL Albumin 1.9 L 3.2-4.5 GM/DL Lipase 19 8-78 U/L My Orders Orders - ENSATISH HOLDER MD Cbc And Automated Diff (12/20/22 03:55) Magnesium (12/20/22 03:55) Chest 1 View Ap/Pa Only (12/20/22 03:55) Ekg Tracing (12/20/22 03:55) Comprehensive Metabolic Panel (12/20/22 03:55) Protime With Inr (12/20/22 03:55) Partial Thromboplastin Time (12/20/22 03:55) O2 (12/20/22 03:55) Monitor-Rhythm Ecg Trace Only (12/20/22 03:55) Ed Iv/Invasive Line Start (12/20/22 03:55) Lipase (12/20/22 03:55) Troponin I Fs (12/20/22 03:55) Probnp Fs (12/20/22 03:55) Blood Culture (12/20/22 03:55) Lactic Acid Analyzer (12/20/22 03:55) Ns Iv 500 Ml (Ns Iv 500 Ml) (12/20/22 03:56) Ondansetron Injection (Ondansetron Inj (12/20/22 03:56) Ns Iv 1000 Ml (Ns Iv 1000 Ml) (12/20/22 04:23) Potassium Cl 10meq/50ml Ivpb (Kcl 10 Meq (12/20/22 04:23) Ceftriaxone Iv/Im (Ceftriaxone Iv/Im) (12/20/22 04:23) Potassium Chloride (Tablet) (Potassium C (12/20/22 04:23) Basic Metabolic Panel (12/20/22 05:22) Potassium Cl 10meq/50ml Ivpb (Kcl 10 Meq (12/20/22 06:00) Vancomycin Injection (Vancomycin Injecti (12/20/22 06:24) Medications Given in ED Current Medications Medications Dose Ordered Sig/Ruperto Route Start Time Stop Time Status Last Admin Dose Admin Potassium Chloride 50 ml @ 50 mls/hr ONCE ONCE IV 12/20/22 06:00 12/20/22 06:59 DC 12/20/22 06:03 50 MLS/HR Vital Signs/I&O 12/20/22 12/20/22 03:47 06:44 Temp 36.5 Pulse 74 85 Resp 16 16 B/P (MAP) 72/41 (51) 138/77 Pulse Ox 95 95 O2 Delivery Room Air Room Air Capillary Refill : Progress Note #1: Progress Note Differential diagnosis includes sepsis, pneumonia, heart failure, myocardial infarction, electrolyte imbalance, dehydration. Place on telemetry and my initial interpretation is that he is in a sinus rhythm with rate in the 70s. Obtain electrocardiogram to look for ischemia, chest xray to look for chest pathology. EMS obtained peripheral IV access. Send labs for complete blood count, comprehensive metabolic profile, magnesium coagulation factors, troponin, proBNP, blood cultures, lactic acid. Initial blood pressure 72/46 so ordered NS 500 mL IVF bolus to try and help with pressure. Zofran 4 mg IV for nausea. If his pressures are not improving with the fluid bolus may need vasopressor support. He might need to be transferred to [facility] in [address] where he has nephrology services. Will wait on labs and testing to see what might show up as source of his hypotension and syncope. Progress Note #2: Time: 04:11 Progress Note On my personal review and interpretation of his 1 view chest x-ray he has poor respiratory effort and increased perihilar markings right greater than left. Possible right lower lobe infiltrate. His blood count came back with a white blood cell count of 5.9. He had anemia with a hemoglobin of 9.5 0419 Lab alerted us that potassium critically low at 1.7 and Mag 1.5. Lactic acid 3.8. Will give additional IVF and IV dose of Ceftriaxone for sepsis. Give KCL 10 mEq IV with fluids to help with his hypokalemia along with 20 mEq po. will check with [facility] to see if they have any beds available so that he could be flown there for treatment. 0425 I called the [facility] transfer line and they advised that they were at capacity and only able to accept STEMI, Stroke and Trauma patients at this time. 0426 I spoke with Sonali at [facility] and she connected me with Dr. Honeycutt, Manager General. I reviewed the case and presentation with him and the findings for sepsis with elevated Lactic acid, hypotension as well as hypokalemia with potassium down to 1.7. He has some global T wave flattening but no STEMI and Negative Troponin. His blood pressure had improved from 70/40 to 94/54 with 500 mL NS IV fluid bolus. He was given Ceftriaxone 1 gm IV as well for sepsis and possible pneumonia. He advised that with his potassium that low he recommends raising it to at least 2.5 before he would feel comfortable taking the patient in transfer. I updated the patient about the findings and test results and need for transfer to higher level of care. He was advised that [facility] did not have any beds available for him and he refused to go to [facility]. He requested that we call [facility] to see if they had any beds. 0439 I called [facility] transfer line and spoke with Hayley. She will check to see if any ICU beds are available in the system and call back with transfer doctor. Progress Note #3: Progress Note [address] Kun Troy at the transfer center for [facility]. After reviewing the patient presentation, history and current vitals and test results he excepted for transfer and will check for an ICU bed in their system. [address] the [facility] transfer center called back to advise the patient could go to [facility] on [address]. Will call back once they have an ICU bed. [address] the [facility] transfer line called back and he has a bed assignment of [id number] at [facility]. Reaching out to helicopter transport services to arrange for emergent transfer of the patient. Will redraw the basic metabolic profile to see if he has had improvement in his potassium. We will also repeat the lactic acid since he has had a liter of fluid. Blood pressures now up to 119/54. Heart rate is 80 and sinus rhythm with an O2 sat of 96% on room air 0555 potassium came back at 1.8 only slightly improved from 1.7 prior to receiving his potassium 20 mill equivalents by mouth and 10 mill equivalents IV. A second 10 mill equivalent IV bag was ordered. 0558 repeat lactic acid down to 2.39 from 3.84. Patient's blood pressure continues to improve and is 126/77. The has completed draining his peritoneal fluid from the peritoneal dialysis and while initially it was flowing very clear by the end of the drain of his dialysate it was yellow and cloudy in appearance. She requested that we send the dialysate with the patient so that it could be cultured at the [facility] Will broaden his IV antibiotic coverage to include vancomycin so he has the Rocephin and vancomycin for potential peritonitis. 0641 [facility] [place] is arriving to transport the patient by helicopter to [facility]. His blood pressure now is 138/77. Oxygen saturation 95% on room air. Pulse is 80 and sinus rhythm. ECG Initial ECG Impression Date: Dec 20, 2022 Initial ECG Impression Time: 04:01 Initial ECG Rate: 71 Initial ECG Rhythm: Normal Sinus Initial ECG Comparisson: Changed (improved st depression in lateral leads from tracing 02/23/2022) Comment Electrocardiogram shows sinus rhythm with a heart rate of 71 bpm. MO interval 186 ms. He has no acute ST elevation. He has some global T wave flattening. QT interval 435 ms with a QTc interval 458 ms. Overall appears improved from last tracing done 02/23/2022 where he had lateral ST depression. Diagnostic Imaging Diagonstic Imaging: Xray Plain Films/CT/US/NM/MRI: chest Reviewed: Reviewed by Me Critical Care Note Critical Care Total Time (minutes) 60 minutes Progress I spent at least 60 minutes of critical care time with the patient. Time excludes separately billable procedures. Time was spent in obtaining history from the patient and EMS, ordering tests and reviewing results, ordering interventions and reviewing response, discussion with consultants, discussion with family, documentation in the chart. Patient is at risk of cardiovascular collapse and from sepsis and electrolyte imbalance. He required my immediate direct intervention and care to help manage his condition to stabilize him and arrange for transfer to a higher level of care. Departure Impression Primary Impression: Sepsis Qualified Codes: A41.9 - Sepsis, unspecified organism Additional Impressions: Syncope Qualified Codes: R55 - Syncope and collapse Hypotension Qualified Codes: I95.9 - Hypotension, unspecified Hypokalemia Hypomagnesemia Pneumonia of right lower lobe due to infectious organism Disposition: XFER SHT-TRM HOSP Condition: Critical Transfer Transfer Reason: Exceeds level of care (Nephrology, ICU) Time Spoke to Accepting Phy: 05:00 Transfer Progress Notes d/w Dr. Kun Troy, transfer physician for [facility]. I reviewed the patient presentation and history briefly with him as well as findings of low blood pressure with low potassium and high lactic acid for possible sepsis. Concern for pneumonia on the chest x-ray. His blood pressure was improving as he was getting IV fluids. His troponin was negative for acute ischemic changes. He did have an elevated lactic acid to 3.84 with a potassium down to 1.7. He is improving as IV fluids and potassium are infusing. His regular hospital [facility] is at capacity and unable to accept the patient. He requested [facility] as he had been seen at [facility] previously. He excepted the patient for transfer and will call back once they have a chance to look for an ICU bed in the system. 05Ariadne Hardy with the [facility] transfer line called back and advised that they do have an ICU bed at [facility]. Will call back once they have the actual room assignment. Transfer Facility: [facility] Method of Transfer: Air ([facility] [place]) Departure-Patient Inst. Referrals: FANY WALTER APRN (PCP) Primary Care Physician [facility] (Family) Primary Care Physician SATISH WAYNE MD Dec 20, 2022 04:02
[2022-12-20 04:10] LABS: INR 0.9 (0.8-1.4); PROTHROMBIN TIME PATIENT 12.7 SEC (12.2-14.7)
[2022-12-20 04:14] LABS: BILIRUBIN,TOTAL 0.2 MG/DL (0.1-1.0); CALCIUM 7.9 MG/DL (8.5-10.1); CHLORIDE 96 MMOL/L (98-107); MAGNESIUM 1.5 MG/DL (1.6-2.4); SODIUM 133 MMOL/L (135-145)
[2022-12-20 04:16] LABS: POTASSIUM 1.7 MMOL/L (3.6-5.0)
[2022-12-20 04:17] LABS: CARBON DIOXIDE 23 MMOL/L (21-32); GLUCOSE 253 MG/DL (70-105)
[2022-12-20 04:18] LABS: TOTAL PROTEIN 5.4 GM/DL (6.4-8.2)
[2022-12-20 04:21] LABS: ALANINE AMINOTRANSFERASE 13 U/L (0-55); ALBUMIN 1.9 GM/DL (3.2-4.5); ALKALINE PHOSPHATASE 82 U/L (40-136); BUN/CREATININE RATIO 2; GFR ESTIMATED 6; LIPASE 19 U/L (8-78)
[2022-12-20] MEDS ORDERED: POTASSIUM CHLORIDE 20 MEQ TABLET PO STA (04:23)
[2022-12-20] MEDS ORDERED: cefTRIAXone IV/IM 1,000 MG in NS (IVPB) 50 ML 50 ML IV STA (04:23)
[2022-12-20] MEDS ORDERED: NS IV 1000 ML 1,000 ML IV STA (04:23)
[2022-12-20] MEDS ORDERED: POTASSIUM CL 10MEQ/50ML IVPB 50 ML IV STA (04:23)
[2022-12-20 05:55] LABS: CALCIUM 7.5 MG/DL (8.5-10.1)
[2022-12-20 05:57] LABS: POTASSIUM 1.8 MMOL/L (3.6-5.0)
[2022-12-20 06:00] LABS: CREATININE SERUM 8.99 MG/DL (0.60-1.30)
[2022-12-20] MEDS ORDERED: POTASSIUM CL 10MEQ/50ML IVPB 50 ML IV ONE (06:00)
[2022-12-20] MEDS ORDERED: VANCOMYCIN INJECTION 1,000 MG in NS (IVPB) 250 ML 250 ML IV STA (06:24)
[2022-12-20 06:44] VITALS: BP 138/77
--- NOTE | 2022-12-20 07:37 | Diagnostic Imaging Report ---
INDICATION: Cough and syncope. Comparison is made with prior exam of 10/29/2022. FINDINGS: The heart size is normal. There is minimal bibasilar subsegmental atelectasis and/or pneumonitis. No pleural effusion or pneumothorax. Mediastinum is unremarkable. IMPRESSION: Minimal bibasilar subsegmental atelectasis and/or pneumonitis. Dictated by: Dictated on workstation # [id number]
== END 2022-12-20 07:01 | disposition short-term general hospital (02) ==
LOC: EDUNIT# 03:46 → ER FS 03:48
DX: A41.9 Sepsis, unspecified organism (principal); R55 Syncope and collapse; I95.9 Hypotension, unspecified; E87.6 Hypokalemia; E83.42 Hypomagnesemia; J18.8 Other pneumonia, unspecified organism; I12.0 Hypertensive chronic kidney disease with stage 5 chronic kidney disease or end stage renal disease; E11.22 Type 2 diabetes mellitus with diabetic chronic kidney disease; N18.6 End stage renal disease; E11.40 Type 2 diabetes mellitus with diabetic neuropathy, unspecified; Z99.2 Dependence on renal dialysis; Z86.16 Personal history of COVID-19; Z79.4 Long term (current) use of insulin
CPT/HCPCS: 36415; 71045; 80048; 80053; 83605; 83690; 83735; 83880; 84484; 85025; 85610; 85730; 87040; 93005; 93041